=== PATIENT | female | born 1970 | race Caucasian/White ===

== ENCOUNTER → 2019-01-19 | Outpatient (CLI) | payer OTHER ==
[~2019-01-19] MED LIST: ALBU2.5V14 NEB; ALBU2.5V8 INH; ATORVASTATIN CA80 MG PO; CETI10TA16 PO; CHOL10003 PO; LOSA1TAB22 PO; MONT10TA9 PO; PANT20TA2 PO; SITA1TAB11 PO
[2019-01-19 11:15] LABS: BASO # 0.1 x10^3/uL (0.0-0.2); BASO % 1 % (0-3); EOS # 0.3 x10^3/uL (0.0-0.7); EOS % 4 % (0-3); HEMATOCRIT 38.1 % (36.0-47.0); LYMPH % 32 % (24-48); MEAN CORPUSCULAR HEMOGLOBIN 31 pg (25-35); MEAN CORPUSCULAR HGB CONC 34 g/dL (31-37); MEAN CORPUSCULAR VOLUME 90 fL (79-100); MONO # 0.4 x10^3/uL (0.0-1.1); MONO % 6 % (0-9); NEUT # 3.6 x10^3uL (1.8-7.7); NEUT % 57 % (31-73); PLATELET COUNT 249 x10^3/uL (140-400); RED BLOOD COUNT 4.26 x10^6/uL (3.50-5.40); RED CELL DISTRIBUTION WIDTH 13.6 % (11.5-14.5); WHITE BLOOD COUNT 6.3 x10^3/uL (4.0-11.0)
[2019-01-19 11:32] LABS: ALBUMIN 3.8 g/dL (3.4-5.0); CALCIUM 9.6 mg/dL (8.5-10.1); CREATININE 1.1 mg/dL (0.6-1.0); GFR 52.6; POTASSIUM 4.4 mmol/L (3.5-5.1); TOTAL BILIRUBIN 0.3 mg/dL (0.2-1.0)
[2019-01-19 23:09] LABS: HEMOGLOBIN A1C 9.8 % (4.8-5.6)
--- NOTE | 2019-01-20 10:34 | NUR ---
FAXED PRE - OP TEST REPORTS TO 'S OFFICE FOR REVIEW AT [phone] AND RECEIVED TRANSMITTAL CONFIRMATION. ALSO CALLED KODY WATTS AT 4106 01/20/2019 AND NOTIFIED OF ELEVATED HGB A1C.
--- NOTE | 2019-01-26 19:15 | NUR ---
PATIENT'S SURGERY 01/23/2019 CANCELLED BY D/T ELEVATED HGB A1C. CHART SEND TO MEDICAL RECORDS.
== END | disposition home or self-care (01) ==
LOC: SURGPAT 10:20
PROVIDERS: ATTEND Surgery
DX: Z01.818 Encounter for other preprocedural examination (principal); K80.20 Calculus of gallbladder without cholecystitis without obstruction
CPT/HCPCS: 36415; 80048; 82040; 82247; 83036; 85025

== ENCOUNTER → 2019-06-01 | Outpatient (CLI) | payer OTHER ==
[~2019-06-01] MED LIST changes: +DOCU50CA9 PO; +HYDR-3164 PO; +INSU100I13 SQ; +LACT1CAP21 PO; +MONT10TA49 PO; -MONT10TA9 PO; +MV-M1TAB52 PO; +TIZA4TAB PO
[2019-06-01 10:03] LABS: BASO # 0.1 x10^3/uL (0.0-0.2); BASO % 1 % (0-3); EOS # 0.3 x10^3/uL (0.0-0.7); EOS % 4 % (0-3); HEMATOCRIT 34.5 % (36.0-47.0); HEMOGLOBIN 12.3 g/dL (12.0-15.5); LYMPH # 1.9 x10^3/uL (1.0-4.8); LYMPH % 27 % (24-48); MEAN CORPUSCULAR HEMOGLOBIN 33 pg (25-35); MEAN CORPUSCULAR HGB CONC 36 g/dL (31-37); MEAN CORPUSCULAR VOLUME 92 fL (79-100); MONO # 0.4 x10^3/uL (0.0-1.1); MONO % 6 % (0-9); NEUT # 4.5 x10^3/uL (1.8-7.7); NEUT % 62 % (31-73); PLATELET COUNT 250 x10^3/uL (140-400); RED BLOOD COUNT 3.75 x10^6/uL (3.50-5.40); RED CELL DISTRIBUTION WIDTH 14.3 % (11.5-14.5); WHITE BLOOD COUNT 7.2 x10^3/uL (4.0-11.0)
[2019-06-01 10:13] LABS: CALCIUM 9.5 mg/dL (8.5-10.1); CREATININE 2.1 mg/dL (0.6-1.0); GFR 24.9; POTASSIUM 4.5 mmol/L (3.5-5.1); TOTAL BILIRUBIN 0.2 mg/dL (0.2-1.0)
== END | disposition home or self-care (01) ==
LOC: SURGPAT 09:08
PROVIDERS: ATTEND Surgery
DX: Z01.818 Encounter for other preprocedural examination (principal); K80.20 Calculus of gallbladder without cholecystitis without obstruction
CPT/HCPCS: 36415; 80048; 82040; 82247; 85025

== ENCOUNTER 2019-06-02 08:47 | Day surgery (SDC) | payer OTHER ==
[~2019-06-02] VITALS: Ht 170.2 cm; Wt 78.0 kg
[~2019-06-02 08:47] MED LIST changes: -DOCU50CA9 PO; -INSU100I13 SQ
[2019-06-02] MEDS ORDERED: INSU100I13 SQ (09:18)
[2019-06-02] MEDS ORDERED: IV RINGERS,LACTATED 1000ML 1,000 ML IV SCH ×2 (09:45→13:30)
[2019-06-02] MEDS ORDERED: INSULIN LISPRO 100 UNIT/ML 3ML VIAL for OP,RR ONLY. SQ PRN (09:45)
[2019-06-02] MEDS ORDERED: SCOPOLAMINE 1.5MG PATCH. TD SCH (10:00)
[2019-06-02] MEDS ORDERED: GLUCAGON,HUMAN RECOMBINANT 1 MG/ML VIAL. ONE (10:47)
[2019-06-02] MEDS ORDERED: BUPIVAC MPF-EPI 0.5%-1:200000 30 ML VIAL. ONE (10:47)
[2019-06-02] MEDS ORDERED: IOHEXOL 300 MG/ML 50 ML VIAL. ONE (10:48)
[2019-06-02] MEDS ORDERED: SURGICEL HEMOSTAT 4X8 EACH. ONE (10:48)
[2019-06-02] MEDS ORDERED: ceFAZolin 2GM PREMIX 2 GM/50 ML BAG IV ONE (12:00)
[2019-06-02] MEDS ORDERED: fentaNYL PF VIAL 100 MCG/2 ML VIAL ONE ×2 (12:19→13:28)
[2019-06-02] MEDS ORDERED: MIDAZOLAM HCL/PF 2 MG/2 ML VIAL. ONE (12:19)
[2019-06-02] MEDS ORDERED: ROCURONIUM 50 MG/5 ML VIAL. ONE (12:20)
[2019-06-02] MEDS ORDERED: FAMOTIDINE 20 MG/2 ML VIAL ONE (12:20)
[2019-06-02] MEDS ORDERED: DEXAMETHASONE SOD PHOS 4 MG/ML VIAL ONE (12:20)
[2019-06-02] MEDS ORDERED: ONDANSETRON PF 4 MG/2 ML VIAL. ONE (12:20)
[2019-06-02] MEDS ORDERED: PROPOFOL 20 ML IV ONE (12:20)
[2019-06-02] MEDS ORDERED: MORPHINE SULFATE 10 MG/ML VIAL. ONE (12:22)
[2019-06-02] MEDS ORDERED: NEOSTIGMINE METHYLSULFATE 5 MG/5 ML SYRINGE. ONE (12:34)
[2019-06-02] MEDS ORDERED: GLYCOPYRROLATE 1 MG/5 ML VIAL. ONE (12:34)
--- NOTE | 2019-06-02 12:53 | RAD ---
Examination: Operative cholangiogram History: Cholecystectomy. Procedure: Fluoroscopic images were provided during the procedure. The cystic duct has been catheterized and contrast has been injected. Findings: The common hepatic bile duct and common bile duct are patent without evidence of intraluminal filling defect or obstruction. Contrast empties normally into the duodenum. Total fluoroscopic time 0.4 minutes. Total fluoroscopic images 3. Impression: Fluoroscopy provided during intraoperative cholangiogram. Electronically signed by: Oz Galvan MD (06/02/2019 12:50 PM) [id number]
--- NOTE | 2019-06-02 12:57 | DISCH ---
DISCHARGE INSTRUCTIONS Condition on Discharge Condition on Discharge: Stable Activity After Discharge Activity Instructions for Disc: Activity as tolerated, Avoid exertion Lifting Instructions after Dis: No heavy lifting Driving Instructions after Dis: Do not drive (3-4 days) Diet after Discharge Diet after Discharge: Regular Wound Incision Care Wound/Incision Care: Ice to area for comfort Other wound/incision instructi: nakia shower Follow-Up Follow Up With: Vern next week JAILENE DUBON MD Jun 02, 2019 12:56
--- NOTE | 2019-06-02 12:59 | PDOC ---
BRIEF OPERATIVE NOTE Date: Jun 02, 2019 Pre-Op Diagnosis symptomatic cholelithiasis Post-Op Diagnosis same Procedure Performed l/s lebron with fidel Surgeon Vern Stripper Apprentice Rock WALKER Anesthesia Type: General Blood Loss 10cc IV Fluid 1000cc Specimens Obtained GB Findings supple GB, normal grams Complications none JAILENE DUBON MD Jun 02, 2019 12:58
[2019-06-02] MEDS ORDERED: HYDR-3164 PO (13:05)
[2019-06-02] MEDS ORDERED: DOCU50CA9 PO (13:06)
[2019-06-02] MEDS ORDERED: MORPHINE SULFATE 2 MG/ML VIAL. IV PRN (13:30)
[2019-06-02] MEDS ORDERED: fentaNYL PF VIAL 100 MCG/2 ML VIAL IV PRN ×2 (13:30)
[2019-06-02] MEDS ORDERED: ONDANSETRON PF 4 MG/2 ML VIAL. IV PRN (13:30)
[2019-06-02] MEDS ORDERED: HYDROmorphone 2 MG/ML VIAL IV PRN (13:30)
[2019-06-02] MEDS: PROCHLORPERAZINE 10 MG/2 ML VIAL. IV PRN ×2 (13:42→14:15)
[2019-06-02] MEDS ORDERED: KETOROLAC 30 MG/ML VIAL. IV ONE (14:40)
[2019-06-02] MEDS ORDERED: HYDROcodone/APAP 5/325MG 1 TAB TABLET ONE (15:33)
[2019-06-02] MEDS ORDERED: HYDROcodone/APAP 5/325MG 1 TAB TABLET PO ONE (15:45)
[2019-06-02 16:10] VITALS: BP 162/84
--- NOTE | 2019-06-03 09:58 | OP ---
DATE OF SURGERY: 06/02/2019 PREOPERATIVE DIAGNOSIS: Symptomatic cholelithiasis. POSTOPERATIVE DIAGNOSIS: Symptomatic cholelithiasis. PROCEDURE: Laparoscopic cholecystectomy with cholangiogram. SURGEON: Sunny Dubon MD HAULING CONTRACTOR: AARON Floyd. ANESTHESIA: General endotracheal. ESTIMATED BLOOD LOSS: 10 mL. INTRAVENOUS FLUID: 1 liter. DESCRIPTION OF PROCEDURE: The patient brought to the operating suite, given a general endotracheal anesthetic and the abdomen was prepped and draped in usual sterile fashion. A supraumbilical incision was infiltrated with local anesthetic, incised and a 5 mm Visiport used to safely gain access into the abdominal cavity. Pneumoperitoneum was established and camera was inserted. Under direct vision, the epigastric and midclavicular ports were placed. The lateral port location was used for an "alligator" grasper. With the table in reverse Trendelenburg rolled to the left, the gallbladder was retracted superolaterally and the cystic duct and cystic artery were identified. The duct was clipped on the gallbladder side. Cholangiograms were made. These were normal. In light of this, the catheter was removed. The cystic duct was clipped x 3 and divided, taking care to avoid injury or compromise the common duct. Cystic artery was clipped and divided and the gallbladder was freed from the bed with cautery dissection and placed in an EndoCatch bag. Table returned to level. Gallbladder delivered through the epigastric incision. Epigastric incision was closed with 0 Vicryl suture. At intraabdominal pressure of 6 cm of water, no bleeding from the epigastric closure, the midclavicular port site after its removal, or the location of the alligator grasper after its removal. Abdomen was decompressed, camera was removed, no bleeding seen. Skin incisions closed with subcuticular 4-0 Monocryl. Steri-Strips and sterile dressings were applied. The patient awakened from her anesthetic and taken to the Recovery Room in satisfactory condition. SUNNY DUBON MD DR: PRIYA/gregg JOB#: [id number] / [id number]
--- NOTE | 2019-06-03 19:06 | PATHOLOGY ---
[facility] Accession Number: [id number] . 01 Material submitted: . gallbladder - GALLBLADDER . 01 Clinical history: . Symptomatic cholelithiasis . 02 Diagnosis: Gallbladder, laparoscopic cholecystectomy: - Cholelithiasis. - Chronic cholecystitis. (JPM:cintia; 06/03/2019) MBR/06/03/2019 . 02 Comment: There is no evidence of malignancy. (JPM:cintia; 06/03/2019) . 02 Electronically signed: . Bradley Jackson MD, Pathologist NPI- [id number] . 01 Gross description: . The specimen is received in formalin labeled "Lively, Celsa, gallbladder" and consists of an intact, green-pearl, smooth, and shiny gallbladder measuring 6.9 cm in length and up to 2.4 cm in diameter. The margin is inked black. Opening reveals a lumen filled with viscous green bile and multiple black gravel-like calculi ranging from 0.1-0.4 cm. The mucosa is green with scattered yellow flecks and an average wall thickness of 0.1 cm. No masses are identified. Mechanic/Welder sections are submitted in A1. (SDY; 06/02/2019) SYU/SYU . 02 Pathologist provided ICD-10: K80.10 . 02 CPT . 296487 Specimen Comment: A courtesy copy of this report has been sent to Specimen Comment: [phone], . Specimen Comment: Report sent to DR DUBON / DR BORREGO Performed at: [address], [place], [place] [id number] MD Trip Flores MD Phone: [phone] Performed at: 02 [facility] [address] [place], [place] [id number] MD Bradley Jackson MD Phone: [phone]
== END 2019-06-02 16:34 | disposition home or self-care (01) ==
LOC: SURG 08:47
PROVIDERS: ATTEND Surgery
DX: K80.10 Calculus of gallbladder with chronic cholecystitis without obstruction (principal); E11.9 Type 2 diabetes mellitus without complications; J45.909 Unspecified asthma, uncomplicated; F17.210 Nicotine dependence, cigarettes, uncomplicated; I10 Essential (primary) hypertension; Z98.51 Tubal ligation status; Z98.890 Other specified postprocedural states; Z72.89 Other problems related to lifestyle; Z88.1 Allergy status to other antibiotic agents; Z88.8 Allergy status to other drugs, medicaments and biological substances; Z79.84 Long term (current) use of oral hypoglycemic drugs
CPT/HCPCS: 47563; 74300; 82962; A7015; J0780; J1100; J1885; J2250; J2270; J2405; J2704; J2710; J3010; J3490; J7030; J7120; Q9967; J0696; J1610

== ENCOUNTER 2021-12-24 19:51 | Inpatient (IN) | payer SELFPAY ==
[~2021-12-24] VITALS: Ht 170.2 cm; Wt 81.2 kg
[2021-12-24] VITALS (9 sets, daily range): BP systolic 157–182; BP diastolic 79–97
[~2021-12-24 19:51] MED LIST changes: +DOCU50CA9 PO; +INSU100I13 SQ; +TIZA-75 PO; -TIZA4TAB PO
[2021-12-24] MEDS ORDERED: ACETAMINOPHEN 650 MG SUPP.RECT. PR PRN (20:15)
[2021-12-24] MEDS ORDERED: ACETAMINOPHEN 325 MG TABLET. PO PRN ×2 (20:15)
[2021-12-24] MEDS ORDERED: BISACODYL 10 MG SUPP.RECT. PR PRN ×2 (20:15)
[2021-12-24] MEDS ORDERED: ASPIRIN RECTAL 300 MG SUPP. PR PRN (20:15)
[2021-12-24] MEDS ORDERED: IV DEXTROSE 5% 250 ML BAG. IV PRN (20:15)
[2021-12-24] MEDS ORDERED: ONDANSETRON PF 4 MG/2 ML VIAL. IVP PRN (20:15)
[2021-12-24] MEDS ORDERED: DEXTROSE 50% 25 GM / 50ML DISP.SYRIN. IV PRN (20:15)
[2021-12-24] MEDS: ATORVASTATIN CALCIUM 40 MG TABLET. PO SCH (20:21)
--- NOTE | 2021-12-24 21:15 | NUR ---
admit from [facility], S/p stroke, unable to move right arm and leg. non-verbal Dr Mejia aware of admission. Called Dr. Chance for admit orders
[2021-12-24] MEDS ORDERED: MONT-38 PO (21:19)
[2021-12-24] MEDS: FAMOTIDINE 20 MG/2 ML VIAL IVP SCH (21:46)
[2021-12-24] MEDS: INSULIN LISPRO 300 UNITS/3 ML VIAL. SQ SCH (23:41)
[2021-12-25] VITALS (18 sets, daily range): BP systolic 140–204; BP diastolic 72–121
[2021-12-25] MEDS: INSULIN LISPRO 300 UNITS/3 ML VIAL. SQ SCH ×4 (05:52→23:53)
[2021-12-25 08:13] LABS: BASO # 0.1 x10^3/uL (0.0-0.2); BASO % 1 % (0-3); EOS # 0.1 x10^3/uL (0.0-0.7); EOS % 1 % (0-3); HEMATOCRIT 39.6 % (36.0-47.0); HEMOGLOBIN 13.5 g/dL (12.0-15.5); LYMPH # 2.4 x10^3/uL (1.0-4.8); LYMPH % 22 % (24-48); MEAN CORPUSCULAR HEMOGLOBIN 29 pg (25-35); MEAN CORPUSCULAR HGB CONC 34 g/dL (31-37); MEAN CORPUSCULAR VOLUME 84 fL (79-100); MONO # 0.9 x10^3/uL (0.0-1.1); MONO % 8 % (0-9); NEUT # 7.3 x10^3/uL (1.8-7.7); NEUT % 68 % (31-73); PLATELET COUNT 312 x10^3/uL (140-400); RED BLOOD COUNT 4.69 x10^6/uL (3.50-5.40); RED CELL DISTRIBUTION WIDTH 13.7 % (11.5-14.5); WHITE BLOOD COUNT 10.7 x10^3/uL (4.0-11.0)
[2021-12-25] MEDS: FAMOTIDINE 20 MG/2 ML VIAL IVP SCH ×2 (08:26→20:58)
[2021-12-25 08:36] LABS: PROTHROMBIN TIME PATIENT 12.1 SEC (11.7-14.0)
[2021-12-25 08:52] LABS: ALBUMIN/GLOBULIN RATIO 0.8 (1.0-1.7); CALCIUM 8.9 mg/dL (8.5-10.1); CREATININE 1.7 mg/dL (0.6-1.0); GFR 31.4; TOTAL BILIRUBIN 0.8 mg/dL (0.2-1.0); TOTAL PROTEIN 6.8 g/dL (6.4-8.2)
[2021-12-25 08:53] LABS: CHOLESTEROL/HDL RATIO 8.2; POTASSIUM 2.9 mmol/L (3.5-5.1)
[2021-12-25] MEDS ORDERED: POTASSIUM CHLORIDE 20MEQ 100 ML IV SCH (09:00)
[2021-12-25] MEDS: POTASSIUM CHLORIDE 10MEQ 100 ML IV SCH ×4 (09:55→13:16)
--- NOTE | 2021-12-25 09:59 | NUR ---
SS following for discharge planning. SS reviewed pt chart and discussed with RN. Pt is from home with spouse and is currently on room air. MRI today. PT/OT/ST ordered. Self pay. Med Assist following. SS will continue to follow for discharge planning.
[2021-12-25] MEDS: hydroCHLOROthiazide 25 MG TABLET PO SCH (10:00)
[2021-12-25] MEDS: MONTELUKAST SODIUM 10 MG TABLET. PO SCH (10:00)
[2021-12-25] MEDS: CHOLECALCIFEROL (VITAMIN D3) 1,000 UNIT TABLET PO SCH (10:00)
[2021-12-25] MEDS: CETIRIZINE HCL 10 MG TABLET. PO SCH (10:00)
[2021-12-25] MEDS: LOSARTAN POTASSIUM 50 MG TABLET. PO SCH (10:00)
--- NOTE | 2021-12-25 10:06 | PDOC1 ---
History and Physical Date of Service: DOS: DATE: 12/25/21 TIME: 09:48 Chief Complaint: Chief Complain: Slurred speech unilateral weakness History of Present Illness: HPI: Patient nonverbal so much history obtained from a report. Patient apparently presented to outside hospital yesterday with right-sided weakness and aphasia. Patient apparently had a fall a couple of days ago and ever since then has been sleeping more and felt more weak. Weakness had been progressing ever since the fall. Yesterday at 3:30 in the morning she woke up and was able to ambulate but was having notable right-sided weakness. Did not go to the emergency room right away. She eventually went back to sleep and awoke later that day with worsened right- sided deficits and inability to speak. Presented to outside hospital that point then. CT head there showing some age-indeterminate infarcts. Otherwise no large vessel occlusions. Patient transferred here for neurologic work-up including MRI. I saw the patient at bedside this morning she was awake and appeared as if she was comprehending my questions. But Still was unable to speak. Right side still with deficits. Past Medical/Surgical History: PMH/PSH: Diabetes hypertension asthma Allergies: Allergies: Coded Allergies: Sulfa (Sulfonamide Antibiotics) (Verified Allergy, Intermediate, Hives, 06/02/19) latex (Verified Allergy, Intermediate, Swelling, 06/02/19) lisinopril (Verified Allergy, Intermediate, Rash, 06/02/19) levofloxacin (Verified Adverse Reaction, Intermediate, 12/25/21) HEADACHES/FLU-LIKE SYMPTOMS/JOINT PAIN Family History: Family History: No known Social History: Social History: Per report a cigarette smoker. No alcohol or drug use. Current Medications: Current Medications Current Medications Hydralazine HCl (Apresoline Inj) 10 mg PRN Q4HRS PRN IVP ELEVATED BP, SEE COMMENTS; Start 12/24/21 at 20:15 Acetaminophen (Tylenol) 650 mg PRN Q6HRS PRN PO MILD PAIN / TEMP > 100.3'F; Start 12/24/21 at 20:15 Ondansetron HCl (Zofran) 4 mg PRN Q4HRS PRN IVP NAUSEA/VOMITING; Start 12/24/21 at 20:15 Olanzapine (ZyPREXA ZYDIS) 5 mg PRN BID PRN PO ANXIETY / AGITATION Last administered on 12/24/21at 22:49; Start 12/24/21 at 20:15 Bisacodyl (Dulcolax Supp) 10 mg PRN DAILY PRN [place] CONSTIPATION; Start 12/24/21 at 20:15 Nicardipine HCl 50 mg/Sodium Chloride 250 ml @ 25 mls/hr CONT PRN PRN IV PER PROTOCOL Last administered on 12/24/21at 23:41; Start 12/24/21 at 20:15 Atorvastatin Calcium (Lipitor) 80 mg QHS PO ; Start 12/24/21 at 21:00 Acetaminophen (Tylenol) 650 mg PRN Q6HRS PRN PO MILD PAIN / TEMP > 100.3'F; Start 12/24/21 at 20:15; Stop 12/24/21 at 20:17; Status DC Bisacodyl (Dulcolax Supp) 10 mg PRN DAILY PRN [place] CONSTIPATION; Start 12/24/21 at 20:15; Status UNV Famotidine (Pepcid Vial) 20 mg BID IVP Last administered on 12/25/21at 08:26; Start 12/24/21 at 21:00 Aspirin (Aspirin Rectal Supp) 300 mg PRN DAILY PRN [place] IF UNABLE TO TAKE PO; Start 12/24/21 at 20:15 Acetaminophen (Tylenol Supp) 650 mg PRN Q6HRS PRN [place] MILD PAIN / TEMP > 100.3'F; Start 12/24/21 at 20:15 Insulin Human Lispro (HumaLOG) 0-9 UNITS Q6HRS SQ ; Start 12/25/21 at 00:00 Dextrose (Dextrose 50%-Water Syringe) 12.5 gm PRN Q15MIN PRN IV SEE COMMENTS; Start 12/24/21 at 20:15 Dextrose (Iv Dextrose 5%) 250 ml PRN Q15MIN PRN IV SEE COMMENTS; Start 12/24/21 at 20:15 Potassium Chloride/Water 100 ml @ 100 mls/hr Q1H IV ; Start 12/25/21 at 09:00; Stop 12/25/21 at 10:59; Status UNV Potassium Chloride/Water 100 ml @ 100 mls/hr Q1H IV ; Start 12/25/21 at 09:00; Stop 12/25/21 at 12:59 Active Scripts Active Reported Montelukast Sodium 10 Mg Tablet 1 Tab PO DAILY Stool Softener (Docusate Sodium) 50 Mg Capsule 50 Mg PO BID Isola 5-325 Tablet (Acetaminophen/Hydrocodone Bitart) 1 Each Tablet 1 Tab PO Q4HRS LAST DOSE GIVEN: Lantus Solostar (Insulin Glargine,Hum.rec.anlog) 100 Unit/1 Ml Insuln.pen 21 Unit SQ QHS Culturelle (Lactobacillus Rhamnosus Gg) 1 Each Capsule 1 Each PO DAILY Alive Once Daily Women 50 Plus (Mv-Mn/Folic Acid/Vit K/[id number]) 1 Each Tablet 1 Each PO DAILY Isola 5-325 Tablet (Acetaminophen/Hydrocodone Bitart) 1 Each Tablet 1 Tab PO PRN Q6HRS PRN Tizanidine Hcl 4 Mg Tablet 2 Tab PO TID PRN Proair Hfa Inhaler (Albuterol Sulfate) 8.5 Gm Hfa.aer.ad 1 Puff INH PRN Q6HRS PRN Montelukast Sodium Tablet (Montelukast Sodium) 10 Mg Tablet 1 Tab PO DAILY Losartan-Hctz 100-25 Mg Tab (Losartan/Hydrochlorothiazide) 1 Each Tablet 1 Tab PO DAILY Protonix (Pantoprazole Sodium) 20 Mg Tablet.dr 1 Tab PO DAILY Vitamin D3 (Cholecalciferol (Vitamin D3)) 1,000 Unit Tablet 1 Tab PO DAILY Cetirizine Hcl 10 Mg Tablet 1 Tab PO DAILY Janumet 50-1,000 Mg Tablet (Sitagliptin Phos/Metformin Hcl) 1 Each Tablet 1 Tab PO BID ROS: Review of Systems Review of System Could not obtain from patient due to aphasia Physical Exam: Vital Signs: Vital Signs Date Time Temp Pulse Resp B/P (MAP) Pulse Ox O2 Delivery O2 Flow Rate FiO2 12/25/21 07:00 99 17 159/87 97 Room Air 12/25/21 04:00 98.0 98.0 Physcial Exam: GEN: No apparent distress. Alert unable to assess orientation HEENT: Normal cephalic, atraumatic, external auditory canals are patent EYES: Extraocular muscles are intact, pupil are equally round and reactive to light and accommodation MUSCULOSKELETAL: Well developed , well nourished ENDOCRINE: No thyromegaly was palpated LYMPHATICS: No cervical chain or axillary nodes were noted HEMATOPOIETIC: No bruising NECK: Supple, no JVD, no thyromegaly was noted LUNGS: Clear to auscultation in all lung gil without rhonchi or wheezing HEART: RRR, S1, S2 present. Peripheral pulses intact, no obvious murmurs noted ABDOMEN: Soft, nontender. Positive bowel sounds, no organomegaly, normal bowel sounds EXTREMITIES: Without clubbing, cyanosis, or edema. Pedal pulses intact. NEUROLOGIC: Patient with what appears to be expressive aphasia. Able to follow some commands. Right side upper and lower extremities with 0/5 strength PSYCHIATRIC: Could not assess SKIN: No ulcerations or rashes, good skin turgor, no jaundice VASCULAR: Good capillary refill, neurovascular bundle appears to be intact Labs: Labs: Laboratory Tests Test 12/24/21 23:27 12/25/21 05:49 12/25/21 07:53 12/25/21 07:55 Glucose (Fingerstick) 206 mg/dL (70-99) 183 mg/dL (70-99) Prothrombin Time 12.1 SEC (11.7-14.0) Prothromb Time International Ratio 0.9 (0.8-1.1) White Blood Count 10.7 x10^3/uL (4.0-11.0) Red Blood Count 4.69 x10^6/uL (3.50-5.40) Hemoglobin 13.5 g/dL (12.0-15.5) Hematocrit 39.6 % (36.0-47.0) Mean Corpuscular Volume 84 fL (79-100) Mean Corpuscular Hemoglobin 29 pg (25-35) Mean Corpuscular Hemoglobin Concent 34 g/dL (31-37) Red Cell Distribution Width 13.7 % (11.5-14.5) Platelet Count 312 x10^3/uL (140-400) Neutrophils (%) (Auto) 68 % (31-73) Lymphocytes (%) (Auto) 22 % (24-48) Monocytes (%) (Auto) 8 % (0-9) Eosinophils (%) (Auto) 1 % (0-3) Basophils (%) (Auto) 1 % (0-3) Neutrophils # (Auto) 7.3 x10^3/uL (1.8-7.7) Lymphocytes # (Auto) 2.4 x10^3/uL (1.0-4.8) Monocytes # (Auto) 0.9 x10^3/uL (0.0-1.1) Eosinophils # (Auto) 0.1 x10^3/uL (0.0-0.7) Basophils # (Auto) 0.1 x10^3/uL (0.0-0.2) Sodium Level 143 mmol/L (136-145) Potassium Level 2.9 mmol/L (3.5-5.1) Chloride Level 103 mmol/L (98-107) Carbon Dioxide Level 26 mmol/L (21-32) Anion Gap 14 (6-14) Blood Urea Nitrogen 17 mg/dL (7-20) Creatinine 1.7 mg/dL (0.6-1.0) Estimated GFR (Cockcroft-Gault) 31.4 BUN/Creatinine Ratio 10 (6-20) Glucose Level 181 mg/dL (70-99) Calcium Level 8.9 mg/dL (8.5-10.1) Total Bilirubin 0.8 mg/dL (0.2-1.0) Aspartate Amino Transf (AST/SGOT) 18 U/L (15-37) Alanine Aminotransferase (ALT/SGPT) 18 U/L (14-59) Alkaline Phosphatase 84 U/L (46-116) Total Protein 6.8 g/dL (6.4-8.2) Albumin 3.0 g/dL (3.4-5.0) Albumin/Globulin Ratio 0.8 (1.0-1.7) Triglycerides Level 278 mg/dL (0-150) Cholesterol Level 272 mg/dL (0-200) LDL Cholesterol, Calculated 183 mg/dL (0-100) VLDL Cholesterol, Calculated 56 mg/dL (0-40) Non-HDL Cholesterol Calculated 239 mg/dL (0-129) HDL Cholesterol 33 mg/dL (40-60) Cholesterol/HDL Ratio 8.2 Laboratory Tests Test 12/24/21 23:27 12/25/21 05:49 12/25/21 07:53 12/25/21 07:55 Glucose (Fingerstick) 206 mg/dL (70-99) 183 mg/dL (70-99) Prothrombin Time 12.1 SEC (11.7-14.0) Prothromb Time International Ratio 0.9 (0.8-1.1) White Blood Count 10.7 x10^3/uL (4.0-11.0) Red Blood Count 4.69 x10^6/uL (3.50-5.40) Hemoglobin 13.5 g/dL (12.0-15.5) Hematocrit 39.6 % (36.0-47.0) Mean Corpuscular Volume 84 fL (79-100) Mean Corpuscular Hemoglobin 29 pg (25-35) Mean Corpuscular Hemoglobin Concent 34 g/dL (31-37) Red Cell Distribution Width 13.7 % (11.5-14.5) Platelet Count 312 x10^3/uL (140-400) Neutrophils (%) (Auto) 68 % (31-73) Lymphocytes (%) (Auto) 22 % (24-48) Monocytes (%) (Auto) 8 % (0-9) Eosinophils (%) (Auto) 1 % (0-3) Basophils (%) (Auto) 1 % (0-3) Neutrophils # (Auto) 7.3 x10^3/uL (1.8-7.7) Lymphocytes # (Auto) 2.4 x10^3/uL (1.0-4.8) Monocytes # (Auto) 0.9 x10^3/uL (0.0-1.1) Eosinophils # (Auto) 0.1 x10^3/uL (0.0-0.7) Basophils # (Auto) 0.1 x10^3/uL (0.0-0.2) Sodium Level 143 mmol/L (136-145) Potassium Level 2.9 mmol/L (3.5-5.1) Chloride Level 103 mmol/L (98-107) Carbon Dioxide Level 26 mmol/L (21-32) Anion Gap 14 (6-14) Blood Urea Nitrogen 17 mg/dL (7-20) Creatinine 1.7 mg/dL (0.6-1.0) Estimated GFR (Cockcroft-Gault) 31.4 BUN/Creatinine Ratio 10 (6-20) Glucose Level 181 mg/dL (70-99) Calcium Level 8.9 mg/dL (8.5-10.1) Total Bilirubin 0.8 mg/dL (0.2-1.0) Aspartate Amino Transf (AST/SGOT) 18 U/L (15-37) Alanine Aminotransferase (ALT/SGPT) 18 U/L (14-59) Alkaline Phosphatase 84 U/L (46-116) Total Protein 6.8 g/dL (6.4-8.2) Albumin 3.0 g/dL (3.4-5.0) Albumin/Globulin Ratio 0.8 (1.0-1.7) Triglycerides Level 278 mg/dL (0-150) Cholesterol Level 272 mg/dL (0-200) LDL Cholesterol, Calculated 183 mg/dL (0-100) VLDL Cholesterol, Calculated 56 mg/dL (0-40) Non-HDL Cholesterol Calculated 239 mg/dL (0-129) HDL Cholesterol 33 mg/dL (40-60) Cholesterol/HDL Ratio 8.2 Images: Images CT scans at outside hospital did not show any large vessel occlusions. Showed age-indeterminate infarcts no hemorrhage. MRI Recommended Assessment/Plan Assessment/Plan Expressive aphasia unilateral weakness secondary to suspected CVA. History hypertension diabetes -Patient presented with worsening neurologic symptoms outside hospital. No definitive findings on CTA head scans. Sent here for neuro consult and MRI -Neurology consulted. MRI and echo ordered. -Speech pathology consult; hold off on diet until seen by them -PT OT -Home meds resumed as indicated -We will start a sliding scale insulin -will contact and discuss with family 38 minutes critical care time Justifications for Admission TIA Indications Persistent neurologic signs?: Yes Justification for admission: There is persistence of patient's focal neurologic signs or symptoms or there is concern for recurrence of patient's neurological signs and symptoms. Severe hypertension?: Yes Justification for admission: There is concern for patient's severe hypertension of (>180/110mmHg--please indicate patient's BP here) that has not been controlled by ED treatment. Patient needs inpatient level of care for further evaluation and management. Other Justification JUDY PATINO MD Dec 25, 2021 10:06
--- NOTE | 2021-12-25 10:27 | PDOC2 ---
NEUROLOGY CONSULT Date of Service DOS: DATE: 12/25/21 TIME: 10:17 Reason for Consult Reason for Consult: Stroke Referring Physician Referring Physician: Dr. Chance Source Source: Chart review, Patient History of Present Illness History of Present Illness The patient is a 51-year-old right-handed female last known normal at 0130 yest erday. She then woke up at 0330 with right-sided weakness and difficulty speaking. She had a fall 2 days before that. Patient waited until yesterday afternoon to go to the emergency department. I spoke to Dr. Lazar at 16:50. Blood pressure is very high in the emergency department. Patient was well outside the alteplase window. CT angiogram showed no large vessel occlusion. Therefore she was not a candidate for any kind of intervention. I agreed with transfer to [place]. Patient's blood pressure is better this morning. She still has trouble speaking. She does not have a headache. She denies any prior history of stroke, seizure, or head injury. Past Medical History Cardiovascular: HTN, Hyperlipidemia Pulmonary: Asthma, COPD GI: GERD, Other (Diarrhea) Hepatobiliary: Cholelithiasis Endocrine: Diabetes Past Surgical History Past Surgical History: Appendectomy, Tubal Ligation, Other (Uterine ablation) Family History Family History: No pertinent hx Social History Social History , smokes cigarettes, rare alcohol Current Medications Current Medications Current Medications Hydralazine HCl (Apresoline Inj) 10 mg PRN Q4HRS PRN IVP ELEVATED BP, SEE COMMENTS; Start 12/24/21 at 20:15 Acetaminophen (Tylenol) 650 mg PRN Q6HRS PRN PO MILD PAIN / TEMP > 100.3'F; Start 12/24/21 at 20:15 Ondansetron HCl (Zofran) 4 mg PRN Q4HRS PRN IVP NAUSEA/VOMITING; Start 12/24/21 at 20:15 Olanzapine (ZyPREXA ZYDIS) 5 mg PRN BID PRN PO ANXIETY / AGITATION Last administered on 12/24/21at 22:49; Start 12/24/21 at 20:15 Bisacodyl (Dulcolax Supp) 10 mg PRN DAILY PRN DE CONSTIPATION; Start 12/24/21 at 20:15 Nicardipine HCl 50 mg/Sodium Chloride 250 ml @ 25 mls/hr CONT PRN PRN IV PER PROTOCOL Last administered on 12/24/21at 23:41; Start 12/24/21 at 20:15 Atorvastatin Calcium (Lipitor) 80 mg QHS PO ; Start 12/24/21 at 21:00 Acetaminophen (Tylenol) 650 mg PRN Q6HRS PRN PO MILD PAIN / TEMP > 100.3'F; Start 12/24/21 at 20:15; Stop 12/24/21 at 20:17; Status DC Bisacodyl (Dulcolax Supp) 10 mg PRN DAILY PRN DE CONSTIPATION; Start 12/24/21 at 20:15; Status UNV Famotidine (Pepcid Vial) 20 mg BID IVP Last administered on 12/25/21at 08:26; Start 12/24/21 at 21:00 Aspirin (Aspirin Rectal Supp) 300 mg PRN DAILY PRN DE IF UNABLE TO TAKE PO; Start 12/24/21 at 20:15 Acetaminophen (Tylenol Supp) 650 mg PRN Q6HRS PRN DE MILD PAIN / TEMP > 100.3'F; Start 12/24/21 at 20:15 Insulin Human Lispro (HumaLOG) 0-9 UNITS Q6HRS SQ ; Start 12/25/21 at 00:00 Dextrose (Dextrose 50%-Water Syringe) 12.5 gm PRN Q15MIN PRN IV SEE COMMENTS; Start 12/24/21 at 20:15 Dextrose (Iv Dextrose 5%) 250 ml PRN Q15MIN PRN IV SEE COMMENTS; Start 12/24/21 at 20:15 Potassium Chloride/Water 100 ml @ 100 mls/hr Q1H IV ; Start 12/25/21 at 09:00; Stop 12/25/21 at 10:59; Status UNV Potassium Chloride/Water 100 ml @ 100 mls/hr Q1H IV Last administered on 12/25/21at 09:55; Start 12/25/21 at 09:00; Stop 12/25/21 at 12:59 Cetirizine HCl (ZyrTEC) 10 mg DAILY PO ; Start 12/25/21 at 10:00 Vitamin D (Vitamin D3) 1,000 unit DAILY PO ; Start 12/25/21 at 10:00 Montelukast Sodium (Singulair) 10 mg DAILY PO ; Start 12/25/21 at 10:00 Losartan Potassium (Cozaar) 100 mg DAILY PO ; Start 12/25/21 at 10:00 Pantoprazole Sodium (Protonix) 40 mg DAILYAC PO ; Start 12/25/21 at 11:30 Lorazepam (Ativan Inj) 2 mg PRN Q4HRS PRN IVP ANXIETY / AGITATION; Start 12/25/21 at 10:00 Hydrochlorothiazide (Hydrodiuril) 25 mg DAILY PO ; Start 12/25/21 at 10:00 Active Scripts Active Reported Montelukast Sodium 10 Mg Tablet 1 Tab PO DAILY Stool Softener (Docusate Sodium) 50 Mg Capsule 50 Mg PO BID Rocky 5-325 Tablet (Acetaminophen/Hydrocodone Bitart) 1 Each Tablet 1 Tab PO Q4HRS LAST DOSE GIVEN: Lantus Solostar (Insulin Glargine,Hum.rec.anlog) 100 Unit/1 Ml Insuln.pen 21 Unit SQ QHS Culturelle (Lactobacillus Rhamnosus Gg) 1 Each Capsule 1 Each PO DAILY Alive Once Daily Women 50 Plus (Mv-Mn/Folic Acid/Vit K/[id number]) 1 Each Tablet 1 Each PO DAILY Rocky 5-325 Tablet (Acetaminophen/Hydrocodone Bitart) 1 Each Tablet 1 Tab PO PRN Q6HRS PRN Tizanidine Hcl 4 Mg Tablet 2 Tab PO TID PRN Proair Hfa Inhaler (Albuterol Sulfate) 8.5 Gm Hfa.aer.ad 1 Puff INH PRN Q6HRS PRN Montelukast Sodium Tablet (Montelukast Sodium) 10 Mg Tablet 1 Tab PO DAILY Losartan-Hctz 100-25 Mg Tab (Losartan/Hydrochlorothiazide) 1 Each Tablet 1 Tab PO DAILY Protonix (Pantoprazole Sodium) 20 Mg Tablet.dr 1 Tab PO DAILY Vitamin D3 (Cholecalciferol (Vitamin D3)) 1,000 Unit Tablet 1 Tab PO DAILY Cetirizine Hcl 10 Mg Tablet 1 Tab PO DAILY Janumet 50-1,000 Mg Tablet (Sitagliptin Phos/Metformin Hcl) 1 Each Tablet 1 Tab PO BID Allergies Allergies: Coded Allergies: Sulfa (Sulfonamide Antibiotics) (Verified Allergy, Intermediate, Hives, 06/02/19) latex (Verified Allergy, Intermediate, Swelling, 06/02/19) lisinopril (Verified Allergy, Intermediate, Rash, 7/16/19) levofloxacin (Verified Adverse Reaction, Intermediate, 12/25/21) HEADACHES/FLU-LIKE SYMPTOMS/JOINT PAIN ROS Review of System Negative for fever, chills, weight loss, chest pain, indigestion, hematochezia, melena, and dysuria. Occasional dyspnea positive. Full 14-point review of systems is negative. Physical Exam Physical Examination General: Well-developed, well-nourished white female in no acute distress HEENT: Normocephalic andatraumatic. Temporal arteriespulsatile and nontender. Neck: Supple without bruit, no meningismus Musculoskeletal: Stability:see neurologic. Gait exam:see neurologic. Tone:see neurologic.Strength:see neurologic. Neurological: Mental Status:orientation, memory, attention span/concentration, language, fund of knowledge: A strange aphasia, she can gesture to communicate, but whispers her replies, which are mostly intelligible otherwise. She follows commands accurately. Cranial Nerves:Pupils equal and reactive to light, extraocular movements areintact, visual gil are full to confrontation. Facial sensation is normal. There is a right central facial weakness. Vestibulo-ocular reflex is intact. Palate elevates and tongue protrudes in midline. All other cranial related problems are negative except as mentioned before.Reflexes:2+ and symmetric with flexor plantar responses. Motor: 4/5 right hemiparesis with normal tone and bulk. Coordination:Finger-nose finger and [id number] testing are normal. Rapid alternating movements and fine finger movements are intact. Gait:Not tested. Sensory:Normal pinprick, vibration, light touch, proprioception. Vitals VITALS Vital Signs Date Time Temp Pulse Resp B/P (MAP) Pulse Ox O2 Delivery O2 Flow Rate FiO2 12/25/21 07:00 99 17 159/87 97 Room Air 12/25/21 04:00 98.0 98.0 Labs Labs [place] Labs: Laboratory Tests Test 12/24/21 15:28 12/24/21 15:58 White Blood Count 7.4 x10^3/uL (4.0-11.0) Red Blood Count 4.89 x10^6/uL (3.50-5.40) Hemoglobin 14.4 g/dL (12.0-15.5) Hematocrit 42.2 % (36.0-47.0) Mean Corpuscular Volume 86 fL (79-100) Mean Corpuscular Hemoglobin 29 pg (25-35) Mean Corpuscular Hemoglobin Concent 34 g/dL (31-37) Red Cell Distribution Width 13.5 % (11.5-14.5) Platelet Count 306 x10^3/uL (140-400) Neutrophils (%) (Auto) 60 % (31-73) Lymphocytes (%) (Auto) 31 % (24-48) Monocytes (%) (Auto) 8 % (0-9) Eosinophils (%) (Auto) 1 % (0-3) Basophils (%) (Auto) 1 % (0-3) Neutrophils # (Auto) 4.4 x10^3uL (1.8-7.7) Lymphocytes # (Auto) 2.2 x10^3/uL (1.0-4.8) Monocytes # (Auto) 0.5 x10^3/uL (0.0-1.1) Eosinophils # (Auto) 0.1 x10^3/uL (0.0-0.7) Basophils # (Auto) 0.1 x10^3/uL (0.0-0.2) Glucose (Fingerstick) 189 mg/dL (70-99) H Laboratory Tests Test 12/24/21 23:27 12/25/21 05:49 12/25/21 07:53 12/25/21 07:55 Glucose (Fingerstick) 206 mg/dL (70-99) 183 mg/dL (70-99) Prothrombin Time 12.1 SEC (11.7-14.0) Prothromb Time International Ratio 0.9 (0.8-1.1) White Blood Count 10.7 x10^3/uL (4.0-11.0) Red Blood Count 4.69 x10^6/uL (3.50-5.40) Hemoglobin 13.5 g/dL (12.0-15.5) Hematocrit 39.6 % (36.0-47.0) Mean Corpuscular Volume 84 fL (79-100) Mean Corpuscular Hemoglobin 29 pg (25-35) Mean Corpuscular Hemoglobin Concent 34 g/dL (31-37) Red Cell Distribution Width 13.7 % (11.5-14.5) Platelet Count 312 x10^3/uL (140-400) Neutrophils (%) (Auto) 68 % (31-73) Lymphocytes (%) (Auto) 22 % (24-48) Monocytes (%) (Auto) 8 % (0-9) Eosinophils (%) (Auto) 1 % (0-3) Basophils (%) (Auto) 1 % (0-3) Neutrophils # (Auto) 7.3 x10^3/uL (1.8-7.7) Lymphocytes # (Auto) 2.4 x10^3/uL (1.0-4.8) Monocytes # (Auto) 0.9 x10^3/uL (0.0-1.1) Eosinophils # (Auto) 0.1 x10^3/uL (0.0-0.7) Basophils # (Auto) 0.1 x10^3/uL (0.0-0.2) Sodium Level 143 mmol/L (136-145) Potassium Level 2.9 mmol/L (3.5-5.1) Chloride Level 103 mmol/L (98-107) Carbon Dioxide Level 26 mmol/L (21-32) Anion Gap 14 (6-14) Blood Urea Nitrogen 17 mg/dL (7-20) Creatinine 1.7 mg/dL (0.6-1.0) Estimated GFR (Cockcroft-Gault) 31.4 BUN/Creatinine Ratio 10 (6-20) Glucose Level 181 mg/dL (70-99) Calcium Level 8.9 mg/dL (8.5-10.1) Total Bilirubin 0.8 mg/dL (0.2-1.0) Aspartate Amino Transf (AST/SGOT) 18 U/L (15-37) Alanine Aminotransferase (ALT/SGPT) 18 U/L (14-59) Alkaline Phosphatase 84 U/L (46-116) Total Protein 6.8 g/dL (6.4-8.2) Albumin 3.0 g/dL (3.4-5.0) Albumin/Globulin Ratio 0.8 (1.0-1.7) Triglycerides Level 278 mg/dL (0-150) Cholesterol Level 272 mg/dL (0-200) LDL Cholesterol, Calculated 183 mg/dL (0-100) VLDL Cholesterol, Calculated 56 mg/dL (0-40) Non-HDL Cholesterol Calculated 239 mg/dL (0-129) HDL Cholesterol 33 mg/dL (40-60) Cholesterol/HDL Ratio 8.2 Laboratory Tests Test 12/24/21 23:27 12/25/21 05:49 12/25/21 07:53 12/25/21 07:55 Glucose (Fingerstick) 206 mg/dL (70-99) 183 mg/dL (70-99) Prothrombin Time 12.1 SEC (11.7-14.0) Prothromb Time International Ratio 0.9 (0.8-1.1) White Blood Count 10.7 x10^3/uL (4.0-11.0) Red Blood Count 4.69 x10^6/uL (3.50-5.40) Hemoglobin 13.5 g/dL (12.0-15.5) Hematocrit 39.6 % (36.0-47.0) Mean Corpuscular Volume 84 fL (79-100) Mean Corpuscular Hemoglobin 29 pg (25-35) Mean Corpuscular Hemoglobin Concent 34 g/dL (31-37) Red Cell Distribution Width 13.7 % (11.5-14.5) Platelet Count 312 x10^3/uL (140-400) Neutrophils (%) (Auto) 68 % (31-73) Lymphocytes (%) (Auto) 22 % (24-48) Monocytes (%) (Auto) 8 % (0-9) Eosinophils (%) (Auto) 1 % (0-3) Basophils (%) (Auto) 1 % (0-3) Neutrophils # (Auto) 7.3 x10^3/uL (1.8-7.7) Lymphocytes # (Auto) 2.4 x10^3/uL (1.0-4.8) Monocytes # (Auto) 0.9 x10^3/uL (0.0-1.1) Eosinophils # (Auto) 0.1 x10^3/uL (0.0-0.7) Basophils # (Auto) 0.1 x10^3/uL (0.0-0.2) Sodium Level 143 mmol/L (136-145) Potassium Level 2.9 mmol/L (3.5-5.1) Chloride Level 103 mmol/L (98-107) Carbon Dioxide Level 26 mmol/L (21-32) Anion Gap 14 (6-14) Blood Urea Nitrogen 17 mg/dL (7-20) Creatinine 1.7 mg/dL (0.6-1.0) Estimated GFR (Cockcroft-Gault) 31.4 BUN/Creatinine Ratio 10 (6-20) Glucose Level 181 mg/dL (70-99) Calcium Level 8.9 mg/dL (8.5-10.1) Total Bilirubin 0.8 mg/dL (0.2-1.0) Aspartate Amino Transf (AST/SGOT) 18 U/L (15-37) Alanine Aminotransferase (ALT/SGPT) 18 U/L (14-59) Alkaline Phosphatase 84 U/L (46-116) Total Protein 6.8 g/dL (6.4-8.2) Albumin 3.0 g/dL (3.4-5.0) Albumin/Globulin Ratio 0.8 (1.0-1.7) Triglycerides Level 278 mg/dL (0-150) Cholesterol Level 272 mg/dL (0-200) LDL Cholesterol, Calculated 183 mg/dL (0-100) VLDL Cholesterol, Calculated 56 mg/dL (0-40) Non-HDL Cholesterol Calculated 239 mg/dL (0-129) HDL Cholesterol 33 mg/dL (40-60) Cholesterol/HDL Ratio 8.2 Images Images [facility], 12/24: CT head without contrast No large area of cortical pearl-white matter differentiation loss. The deep pearl nuclei are able to be delineated but there are several small areas of low attenuation along the bilateral deep pearl nuclei as well as at the deep subcortical white matter mainly on the right. Heterogeneity of the brainstem mainly below the midbrain is at least in part artifactual from beam hardening. No acute intracranial hemorrhage. No localized mass effect, midline shift or hydrocephalus. Intact calvarium. Normally aerated mastoid air cells and visualized paranasal sinuses. IMPRESSION: 1. Several age-indeterminate hand baseball sewer infarcts along the deep pearl nuclei and likely at the deep subcortical white matter on the right. No large area of cortical pearl-white matter differentiation loss seen at this time. No acute intracranial hemorrhage. 2. Heterogeneity of the brainstem below the midbrain favored predominantly on account of beam hardening. Attention on forthcoming CT angiography. CT angiography of the head and neck CTA NECK: Arch/Proximal Great Vessels: Patent great vessel origins. No stenosis of the common or subclavian arteries. Carotid Bifurcation/Cervical ICA: Mild calcified and noncalcified atheromatous plaque at the right carotid bulb and minimally on the left. No cervical ICA stenosis. Vertebral Arteries: Patent origins. Essentially codominant luminal caliber minimally larger on the left. No stenosis or dissection throughout the neck. CTA HEAD: Posterior Circulation: Both intracranial vertebral arteries are patent and contribute to basilar flow. The basilar artery is patent. No central occlusion or flow-limiting stenosis of the posterior cerebral arteries. Anterior Circulation: The intracranial ICAs are patent. No large vessel occlusion. Some M3 branches become difficult to delineate on the left but similar findings are present on the right and difficult to confirm as actual pathology. Patent adequately assessed anterior cerebral artery segments. Veins: Patent dural sinuses. MISCELLANEOUS: Prominent size of the thyroid gland with several subcentimeter nodules. Multilevel cervical spine degenerative changes collectively greatest at C5-C6 and C6-C7. A component of central canal stenosis at these levels but not adequat seda characterized. Odontogenic disease with several dental caries and periapical lucencies. IMPRESSION: CT Angio Neck: 1. No flow-limiting stenosis or dissection of the extracranial carotid or vertebral arteries. 2. Somewhat prominent thyroid gland. A few subcentimeter thyroid nodules are noted which do not meet size criteria for dedicated follow-up. Given the size of the gland consider eventual correlation with thyroid function tests. 3. Odontogenic disease. Multilevel cervical spondylosis collectively greatest at C5-C6 and C6-C7. CT Angio Head: 1. No large vessel occlusion or central flow-limiting stenosis. MRI is recommend ed given the apparent severity of the patient's neurologic deficits. 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 Therefore I am keeping in mind other causes including hypertensive encephalopathy Recommendations: MRI of the brain Echocardiogram Rectal aspirin until cleared by speech Rehabilitation modalities Blood pressure parameters corrected Also see stroke orders Discussed with Dr. Chance. Thank you for letting me help with the patient's care. INDER BROWN MD Dec 25, 2021 10:27
[2021-12-25] MEDS: hydrALAZINE 20 MG/ML VIAL. IVP PRN ×3 (11:04→23:55)
[2021-12-25] MEDS: PANTOPRAZOLE 40 MG TABLET.DR. PO SCH (11:30)
--- NOTE | 2021-12-25 15:52 | RAD ---
EXAM: Brain MRI without contrast. HISTORY: Stroke. TECHNIQUE: Multiplanar, multisequence magnetic resonance imaging of the brain was performed without c ontrast. COMPARISON: CT dated 12/24/2021. FINDINGS: The exam is significantly limited due to motion. There is restricted diffusion at the junction of the left thalamus and posterior limb of the left int ernal capsule, the right caudate nucleus, and the junction of the right thalamus and posterior limb o f the right internal capsule, consistent with acute infarction. There is no mass effect or midline sh ift. There is no hydrocephalus. There is a small chronic infarct within the drea to the right of midline. There are also suspected ch ronic infarct involving the bilateral basal ganglia, thalami and centrum semiovale. There are cerebral white changes, most commonly due to chronic small vessel disease. The orbits, para nasal sinuses mastoid air cells are unremarkable. There are normal flow voids within the cerebral ves sels. There is fluid within the mastoid air cells. IMPRESSION: 1. Acute infarcts at the junctions of the left greater than right thalami and posterior limbs of the internal capsules and the right caudate nucleus. 2. Suspected chronic infarcts involving bilateral basal ganglia, bilateral thalami, drea and centrum semiovale. 3. Bilateral cerebral white matter changes, likely due to chronic small vessel disease given the afor ementioned findings. 4. Note is made that the exam is extremely limited due to motion. Findings were discussed with Araceli interstitial edema patient floor, at 1545 hours on 12/25/2021. FOR INTERNAL CODING PURPOSES RESULT CODE: (C) Electronically signed by: Ester Reilly MD (12/25/2021 3:49 PM) [id number]
[2021-12-25] MEDS: IV NORMAL SALINE 1000ML BAG 1,000 ML IV SCH (17:11)
[2021-12-25] MEDS: ATORVASTATIN CALCIUM 40 MG TABLET. PO SCH (19:26)
[2021-12-25 19:49] LABS: CALCIUM 8.7 mg/dL (8.5-10.1); CREATININE 1.8 mg/dL (0.6-1.0); GFR 29.4; POTASSIUM 3.5 mmol/L (3.5-5.1)
[2021-12-26] VITALS (17 sets, daily range): BP systolic 137–214; BP diastolic 78–142
[2021-12-26 01:12] LABS: HEMOGLOBIN A1C 7.4 % (4.8-5.6)
[2021-12-26] MEDS: IV NORMAL SALINE 1000ML BAG 1,000 ML IV SCH ×3 (02:45→18:25)
[2021-12-26] MEDS: hydrALAZINE 20 MG/ML VIAL. IVP PRN ×4 (04:08→18:25)
[2021-12-26] MEDS: INSULIN LISPRO 300 UNITS/3 ML VIAL. SQ SCH ×4 (05:40→23:41)
[2021-12-26] MEDS: LOSARTAN POTASSIUM 50 MG TABLET. PO SCH (07:17)
[2021-12-26] MEDS: PANTOPRAZOLE 40 MG TABLET.DR. PO SCH (07:17)
[2021-12-26] MEDS: CHOLECALCIFEROL (VITAMIN D3) 1,000 UNIT TABLET PO SCH (07:18)
[2021-12-26] MEDS: CETIRIZINE HCL 10 MG TABLET. PO SCH (07:18)
[2021-12-26] MEDS: hydroCHLOROthiazide 25 MG TABLET PO SCH (07:18)
[2021-12-26] MEDS: MONTELUKAST SODIUM 10 MG TABLET. PO SCH (07:18)
[2021-12-26] MEDS: FAMOTIDINE 20 MG/2 ML VIAL IVP SCH (08:38)
--- NOTE | 2021-12-26 09:57 | PDOC ---
PROGRESS NOTES Date of Service DATE: 12/26/21 TIME: 09:53 Assessment Acute infarcts at the junctions of the left greater than right thalami and posterior limbs of the internal capsules and the right caudate nucleus, chronic infarcts involving bilateral basal ganglia, bilateral thalami, drea and centrum semiovale, bilateral cerebral white matter changes Hypertension, hyperlipidemia Plan Await echocardiogram Rectal aspirin until cleared by speech Rehabilitation modalities Blood pressure parameters tightened High-dose statin when safe to take orally Subjective None Objective Vital Signs Date Time Temp Pulse Resp B/P (MAP) Pulse Ox O2 Delivery O2 Flow Rate FiO2 12/26/21 08:38 133 198/142 12/26/21 08:00 98.5 17 96 Room Air 98.5 Intake and Output 12/26/21 07:00 Intake Total 1600 ml Output Total 185 ml Balance 1415 ml Intake Oral 0 ml IV Total 1600 ml Output Urine Total 185 ml PHYSICAL EXAM Alert, nonverbal, still follows a few commands PERRL. EOMI. CN: Right central facial weakness. Muscle tone: normal. Muscle strength: 3/5 right hemiparesis DTR: 2+ Plantar reflex: Flexor Gait: not examined in bed. Sensory exam: no abnormal findings. No cerebellar signs elicited. Review of Relevant I have reviewed the following items chino (where applicable) has been applied. Labs Laboratory Tests Test 12/24/21 23:27 12/25/21 05:49 12/25/21 07:53 12/25/21 07:55 Glucose (Fingerstick) 206 mg/dL (70-99) 183 mg/dL (70-99) Prothrombin Time 12.1 SEC (11.7-14.0) Prothromb Time International Ratio 0.9 (0.8-1.1) White Blood Count 10.7 x10^3/uL (4.0-11.0) Red Blood Count 4.69 x10^6/uL (3.50-5.40) Hemoglobin 13.5 g/dL (12.0-15.5) Hematocrit 39.6 % (36.0-47.0) Mean Corpuscular Volume 84 fL (79-100) Mean Corpuscular Hemoglobin 29 pg (25-35) Mean Corpuscular Hemoglobin Concent 34 g/dL (31-37) Red Cell Distribution Width 13.7 % (11.5-14.5) Platelet Count 312 x10^3/uL (140-400) Neutrophils (%) (Auto) 68 % (31-73) Lymphocytes (%) (Auto) 22 % (24-48) Monocytes (%) (Auto) 8 % (0-9) Eosinophils (%) (Auto) 1 % (0-3) Basophils (%) (Auto) 1 % (0-3) Neutrophils # (Auto) 7.3 x10^3/uL (1.8-7.7) Lymphocytes # (Auto) 2.4 x10^3/uL (1.0-4.8) Monocytes # (Auto) 0.9 x10^3/uL (0.0-1.1) Eosinophils # (Auto) 0.1 x10^3/uL (0.0-0.7) Basophils # (Auto) 0.1 x10^3/uL (0.0-0.2) Sodium Level 143 mmol/L (136-145) Potassium Level 2.9 mmol/L (3.5-5.1) Chloride Level 103 mmol/L (98-107) Carbon Dioxide Level 26 mmol/L (21-32) Anion Gap 14 (6-14) Blood Urea Nitrogen 17 mg/dL (7-20) Creatinine 1.7 mg/dL (0.6-1.0) Estimated GFR (Cockcroft-Gault) 31.4 BUN/Creatinine Ratio 10 (6-20) Glucose Level 181 mg/dL (70-99) Hemoglobin A1c 7.4 % (4.8-5.6) Calcium Level 8.9 mg/dL (8.5-10.1) Total Bilirubin 0.8 mg/dL (0.2-1.0) Aspartate Amino Transf (AST/SGOT) 18 U/L (15-37) Alanine Aminotransferase (ALT/SGPT) 18 U/L (14-59) Alkaline Phosphatase 84 U/L (46-116) Total Protein 6.8 g/dL (6.4-8.2) Albumin 3.0 g/dL (3.4-5.0) Albumin/Globulin Ratio 0.8 (1.0-1.7) Triglycerides Level 278 mg/dL (0-150) Cholesterol Level 272 mg/dL (0-200) LDL Cholesterol, Calculated 183 mg/dL (0-100) VLDL Cholesterol, Calculated 56 mg/dL (0-40) Non-HDL Cholesterol Calculated 239 mg/dL (0-129) HDL Cholesterol 33 mg/dL (40-60) Cholesterol/HDL Ratio 8.2 Test 12/25/21 12:55 12/25/21 18:35 12/25/21 19:20 12/25/21 23:47 Glucose (Fingerstick) 182 mg/dL (70-99) 166 mg/dL (70-99) 132 mg/dL (70-99) Sodium Level 143 mmol/L (136-145) Potassium Level 3.5 mmol/L (3.5-5.1) Chloride Level 106 mmol/L (98-107) Carbon Dioxide Level 24 mmol/L (21-32) Anion Gap 13 (6-14) Blood Urea Nitrogen 20 mg/dL (7-20) Creatinine 1.8 mg/dL (0.6-1.0) Estimated GFR (Cockcroft-Gault) 29.4 Glucose Level 154 mg/dL (70-99) Calcium Level 8.7 mg/dL (8.5-10.1) Test 12/26/21 05:10 Glucose (Fingerstick) 176 mg/dL (70-99) Laboratory Tests Test 12/25/21 12:55 12/25/21 18:35 12/25/21 19:20 12/25/21 23:47 Glucose (Fingerstick) 182 mg/dL (70-99) 166 mg/dL (70-99) 132 mg/dL (70-99) Sodium Level 143 mmol/L (136-145) Potassium Level 3.5 mmol/L (3.5-5.1) Chloride Level 106 mmol/L (98-107) Carbon Dioxide Level 24 mmol/L (21-32) Anion Gap 13 (6-14) Blood Urea Nitrogen 20 mg/dL (7-20) Creatinine 1.8 mg/dL (0.6-1.0) Estimated GFR (Cockcroft-Gault) 29.4 Glucose Level 154 mg/dL (70-99) Calcium Level 8.7 mg/dL (8.5-10.1) Test 12/26/21 05:10 Glucose (Fingerstick) 176 mg/dL (70-99) Medications Current Medications Hydralazine HCl (Apresoline Inj) 10 mg PRN Q4HRS PRN IVP ELEVATED BP, SEE COMMENTS Last administered on 12/26/21at 08:38; Start 12/24/21 at 20:15 Acetaminophen (Tylenol) 650 mg PRN Q6HRS PRN PO MILD PAIN / TEMP > 100.3'F; Start 12/24/21 at 20:15 Ondansetron HCl (Zofran) 4 mg PRN Q4HRS PRN IVP NAUSEA/VOMITING; Start 12/24/21 at 20:15 Olanzapine (ZyPREXA ZYDIS) 5 mg PRN BID PRN PO ANXIETY / AGITATION Last administered on 12/24/21at 22:49; Start 12/24/21 at 20:15 Bisacodyl (Dulcolax Supp) 10 mg PRN DAILY PRN OR CONSTIPATION; Start 12/24/21 at 20:15 Nicardipine HCl 50 mg/Sodium Chloride 250 ml @ 25 mls/hr CONT PRN PRN IV PER PROTOCOL Last administered on 12/24/21at 23:41; Start 12/24/21 at 20:15 Atorvastatin Calcium (Lipitor) 80 mg QHS PO ; Start 12/24/21 at 21:00 Acetaminophen (Tylenol) 650 mg PRN Q6HRS PRN PO MILD PAIN / TEMP > 100.3'F; Start 12/24/21 at 20:15; Stop 12/24/21 at 20:17; Status DC Bisacodyl (Dulcolax Supp) 10 mg PRN DAILY PRN OR CONSTIPATION; Start 12/24/21 at 20:15; Status UNV Famotidine (Pepcid Vial) 20 mg BID IVP Last administered on 12/26/21at 08:38; Start 12/24/21 at 21:00; Stop 12/26/21 at 08:51; Status DC Aspirin (Aspirin Rectal Supp) 300 mg PRN DAILY PRN OR IF UNABLE TO TAKE PO; Start 12/24/21 at 20:15 Acetaminophen (Tylenol Supp) 650 mg PRN Q6HRS PRN OR MILD PAIN / TEMP > 100.3'F; Start 12/24/21 at 20:15 Insulin Human Lispro (HumaLOG) 0-9 UNITS Q6HRS SQ ; Start 12/25/21 at 00:00 Dextrose (Dextrose 50%-Water Syringe) 12.5 gm PRN Q15MIN PRN IV SEE COMMENTS; Start 12/24/21 at 20:15 Dextrose (Iv Dextrose 5%) 250 ml PRN Q15MIN PRN IV SEE COMMENTS; Start 12/24/21 at 20:15 Potassium Chloride/Water 100 ml @ 100 mls/hr Q1H IV ; Start 12/25/21 at 09:00; Stop 12/25/21 at 10:59; Status UNV Potassium Chloride/Water 100 ml @ 100 mls/hr Q1H IV Last administered on 12/25/21at 13:16; Start 12/25/21 at 09:00; Stop 12/25/21 at 12:59; Status DC Cetirizine HCl (ZyrTEC) 10 mg DAILY PO ; Start 12/25/21 at 10:00 Vitamin D (Vitamin D3) 1,000 unit DAILY PO ; Start 12/25/21 at 10:00 Montelukast Sodium (Singulair) 10 mg DAILY PO ; Start 12/25/21 at 10:00 Losartan Potassium (Cozaar) 100 mg DAILY PO ; Start 12/25/21 at 10:00 Pantoprazole Sodium (Protonix) 40 mg DAILYAC PO ; Start 12/25/21 at 11:30 Lorazepam (Ativan Inj) 2 mg PRN Q4HRS PRN IVP ANXIETY / AGITATION Last administered on 12/26/21at 00:15; Start 12/25/21 at 10:00 Hydrochlorothiazide (Hydrodiuril) 25 mg DAILY PO ; Start 12/25/21 at 10:00 Sodium Chloride 1,000 ml @ 125 mls/hr Q8H IV Last administered on 12/26/21at 02:45; Start 12/25/21 at 17:00 Famotidine (Pepcid Vial) 20 mg DAILY IVP ; Start 12/27/21 at 09:00 Active Scripts Active Reported Montelukast Sodium 10 Mg Tablet 1 Tab PO DAILY Stool Softener (Docusate Sodium) 50 Mg Capsule 50 Mg PO BID [place] 5-325 Tablet (Acetaminophen/Hydrocodone Bitart) 1 Each Tablet 1 Tab PO Q4HRS LAST DOSE GIVEN: Lantus Solostar (Insulin Glargine,Hum.rec.anlog) 100 Unit/1 Ml Insuln.pen 21 Uni t SQ QHS Culturelle (Lactobacillus Rhamnosus Gg) 1 Each Capsule 1 Each PO DAILY Alive Once Daily Women 50 Plus (Mv-Mn/Folic Acid/Vit K/Lzta238) 1 Each Tablet 1 Each PO DAILY [place] 5-325 Tablet (Acetaminophen/Hydrocodone Bitart) 1 Each Tablet 1 Tab PO PRN Q6HRS PRN Tizanidine Hcl 4 Mg Tablet 2 Tab PO TID PRN Proair Hfa Inhaler (Albuterol Sulfate) 8.5 Gm Hfa.aer.ad 1 Puff INH PRN Q6HRS PRN Montelukast Sodium Tablet (Montelukast Sodium) 10 Mg Tablet 1 Tab PO DAILY Losartan-Hctz 100-25 Mg Tab (Losartan/Hydrochlorothiazide) 1 Each Tablet 1 Tab PO DAILY Protonix (Pantoprazole Sodium) 20 Mg Tablet.dr 1 Tab PO DAILY Vitamin D3 (Cholecalciferol (Vitamin D3)) 1,000 Unit Tablet 1 Tab PO DAILY Cetirizine Hcl 10 Mg Tablet 1 Tab PO DAILY Janumet 50-1,000 Mg Tablet (Sitagliptin Phos/Metformin Hcl) 1 Each Tablet 1 Tab PO BID Vitals/I & O Vital Sign - Last 24 Hours 12/25/21 12/25/21 12/25/21 12/25/21 10:00 11:00 11:04 12:00 Temp 97.7 97.7 Pulse 102 132 121 132 Resp 29 21 21 B/P (MAP) 185/87 204/112 204/112 173/96 Pulse Ox 94 94 94 O2 Delivery Room Air Room Air Room Air 12/25/21 12/25/21 12/25/21 12/25/21 12:15 13:00 16:00 17:12 Temp 98.0 98.0 Pulse 132 114 114 Resp 16 B/P (MAP) 140/109 141/72 189/121 197/91 Pulse Ox 94 93 O2 Delivery Room Air Room Air 12/25/21 12/25/21 12/26/21 12/26/21 20:36 23:55 00:00 00:30 Temp 98.1 98.3 98.1 98.3 Pulse 116 116 115 Resp B/P (MAP) 173/95 (121) 196/95 196/98 (130) 156/78 (104) Pulse Ox 95 98 O2 Delivery Room Air Room Air 2/812/26/21 12/26/21 12/26/21 04:00 04:08 08:00 08:38 Temp 98.1 98.5 98.1 98.5 Pulse 114 115 133 133 Resp 24 17 B/P (MAP) 182/96 (124) 178/88 198/142 (160) 198/142 Pulse Ox 99 96 O2 Delivery Room Air Room Air Intake and Output 12/25/21 12/25/21 12/26/21 15:00 23:00 07:00 Intake Total 400 ml 238 ml 962 ml Output Total 100 ml 85 ml Balance 300 ml 153 ml 962 ml Justicifation of Admission Dx: Justifications for Admission: Justification of Admission Dx: Yes Stroke - Ischemic: Stroke-Ischemic INDER BROWN MD Dec 26, 2021 09:57
--- NOTE | 2021-12-26 12:02 | CARD ---
MR#: [id number] Date of Study: 12/25/2021 Ordering Physician: INDER BROWN, Referring Physician: INDER BROWN, Tech: Irene Sandhu, [facility] APPROVED REPORT EXAM: Two-dimensional and M-mode echocardiogram with Doppler and color Doppler. Other Information Quality : FairHR: 135bpm Technically limited study due to Restless patient/ rapid heart rate INDICATION CVA/TIA Echo Enhancing Agent Indication: Rule Out Septal Defect Agent/Amount Used: Agitated Saline 10mL RISK FACTORS Hypertension Diabetes Smoking Asthma 2D DIMENSIONS Left Atrium(2D)2.6 (1.6-4.0cm)IVSd1.2 (0.7-1.1cm) Aortic Root(2D)3.0 (2.0-3.7cm)LVDd4.1 (3.9-5.9cm) LVOT Diameter2.0 (1.8-2.4cm)PWd1.0 (0.7-1.1cm) LVDs2.8 (2.5-4.0cm)FS (%) 31.0 % SV42.5 ml Aortic Valve AoV Peak Delfino.163.0cm/Maki Peak GR.10.6mmHg Tricuspid Valve TR P. [id number] [id number] TR Peak [id number] LEFT VENTRICLE The left ventricle is normal size. There is mild concentric left ventricular hypertrophy. The left ve ntricular systolic function is normal and the ejection fraction is within normal range. LV ejection f raction of 55 to 60% There is normal LV segmental wall motion. Tissue Doppler not performed. RIGHT VENTRICLE The right ventricle is normal size. There is normal right ventricular wall thickness. The right ventr icular systolic function is normal. ATRIA The left atrium size is normal. The right atrium size is normal. Bubble study is negative. AORTIC VALVE The aortic valve is not well visualized. Doppler and Color Flow revealed no significant aortic regurg itation. There is no significant aortic valvular stenosis. There is a maximum gradient of 11 mmHg. MITRAL VALVE The mitral valve is normal in structure and function. There is no evidence of mitral valve prolapse. There is no mitral valve stenosis. Doppler and Color-flow revealed trace mitral regurgitation. TRICUSPID VALVE The tricuspid valve is normal in structure and function. Doppler and Color Flow revealed trace tricus pid regurgitation with an estimated PAP of 38 mmHg. There is no tricuspid valve stenosis. PULMONIC VALVE The pulmonic valve is not well visualized. Doppler and Color Flow revealed no pulmonic valvular regur gitation. GREAT VESSELS The aortic root is normal in size. The IVC is normal in size and collapses >50% with inspiration. PERICARDIAL EFFUSION There is no evidence of significant pericardial effusion. Critical Notification Critical Value: No <Conclusion> The left ventricle is normal size. The left ventricular systolic function is normal and the ejection fraction is within normal range. LV ejection fraction of 55 to 60% There is mild concentric left ventricular hypertrophy. Bubble study is negative. Doppler and Color Flow revealed no significant aortic regurgitation. There is no significant aortic valvular stenosis. There is a maximum gradient of 11 mmHg. Doppler and Color-flow revealed trace mitral regurgitation. Doppler and Color Flow revealed trace tricuspid regurgitation with an estimated PAP of 38 mmHg. Signed by : Sterling Vinson MD Electronically Approved : 12/26/2021 12:02:31
[2021-12-26] MEDS: LABETALOL 20 MG/4 ML DISP.SYRIN. IVP PRN ×2 (13:20→16:43)
[2021-12-26] MEDS: HEPARIN for SUB-Q USE 5,000 UNIT/ML VIAL. SQ SCH ×2 (14:25→21:29)
--- NOTE | 2021-12-26 14:46 | PDOC ---
[employer] PROGRESS NOTE Date of Service DOS: DATE: 12/26/21 TIME: 14:44 Chief Complaint Chief Complaint Expressive aphasia unilateral weakness secondary to suspected CVA. History hypertension diabetes -Patient presented with worsening neurologic symptoms outside hospital. No definitive findings on CTA head scans. Sent here for neuro consult and MRI -Neurology consulted. MRI with acute infarcts -ECHO still pending -Speech pathology recommending NPO for now -PT OT -Home meds resumed as indicated -We will start a sliding scale insulin -will contact and discuss with family History of Present Illness History of Present Illness 12/26 Evaluated and examined at bedside. Is a bit lethargic today difficulty staying awake this morning. MRI showing acute infarcts. Neurology continues to follow. Patient remains aphasic. Therapy modalities. Blood pressure control with IV until able to take oral Okay to transfer out of ICU to CVC if bed is needed Vitals/I&O Vitals/I&O: Vital Signs Date Time Temp Pulse Resp B/P (MAP) Pulse Ox O2 Delivery O2 Flow Rate FiO2 12/26/21 14:29 103 217/104 12/26/21 08:00 98.5 17 96 Room Air 98.5 I & O 12/25/21 12/25/21 12/26/21 15:00 23:00 07:00 Intake Total 400 ml 238 ml 962 ml Output Total 100 ml 85 ml Balance 300 ml 153 ml 962 ml Physical Exam General: Alert, Cooperative Heart: Regular rate Lungs: Clear Abdomen: Normal bowel sounds, Soft, No tenderness Extremities: No edema, Normal pulses Skin: No significant lesion Labs Labs: Laboratory Tests Test 12/25/21 18:35 12/25/21 19:20 12/25/21 23:47 12/26/21 05:10 Glucose (Fingerstick) 166 mg/dL (70-99) 132 mg/dL (70-99) 176 mg/dL (70-99) Sodium Level 143 mmol/L (136-145) Potassium Level 3.5 mmol/L (3.5-5.1) Chloride Level 106 mmol/L (98-107) Carbon Dioxide Level 24 mmol/L (21-32) Anion Gap 13 (6-14) Blood Urea Nitrogen 20 mg/dL (7-20) Creatinine 1.8 mg/dL (0.6-1.0) Estimated GFR (Cockcroft-Gault) 29.4 Glucose Level 154 mg/dL (70-99) Calcium Level 8.7 mg/dL (8.5-10.1) Comment Review of Relevant I have reviewed the following items chino (where applicable) has been applied. Medications: Current Medications Medications (Trade) Dose Ordered Sig/Fabio Route PRN Reason Start Time Stop Time Status Last Admin Dose Admin Sodium Chloride 1,000 ml @ 125 mls/hr Q8H IV 12/25/21 17:00 12/26/21 11:17 Labetalol HCl (Normodyne Iv Push) 10 mg PRN Q2HR PRN IVP HYPERTENSION 12/26/21 13:15 12/26/21 13:20 Heparin Sodium (Porcine) (Heparin Sodium) 5,000 unit Q8HRS SQ 12/26/21 14:00 12/26/21 14:25 Justifications for Admission TIA Indications Persistent neurologic signs?: Yes Justification for admission: There is persistence of patient's focal neurologic signs or symptoms or there is concern for recurrence of patient's neurological signs and symptoms. Severe hypertension?: Yes Justification for admission: There is concern for patient's severe hypertension of (>180/110mmHg--please indicate patient's BP here) that has not been controlled by ED treatment. Patient needs inpatient level of care for further evaluation and management. Other Justification JUDY PATINO MD Dec 26, 2021 14:46
--- NOTE | 2021-12-26 15:07 | NUR ---
SS following up with discharge planning. SS reviewed pt chart and discussed with pt RN. Pt is currently on room air. Neurology following. PT/OT ordered. NPO. ST following. Self pay. [facility] following. SS discussed with Palak Doty in [facility]. Palak reaching out to pt's spouse to start process of disability and Medicaid application. SS contacted pt's spouse and left voicemail notifying him that Palak will be calling. Possible need for Medicaid pending placement once applications are completed and submitted. SS will continue to follow for discharge planning.
[2021-12-26] MEDS: NICOTINE 21MG PATCH. TD SCH (15:12)
[2021-12-26] MEDS: cloNIDine TTS-2 1 PATCH PATCH TD SCH (15:13)
--- NOTE | 2021-12-26 15:17 | NUR ---
spoke with Dr Caicedo earlier regarding pt hypertension, prn labetalol ordered. labetalol and hydralazine given, pt blood pressure still 214/103. spoke with Dr Caicedo again, clonidine patch, nicotine patch and to give prn ativan. all those medications given, will continue to monitor.
[2021-12-26] MEDS: NITROGLYCERIN OINT 1 GM PACKET. TP SCH ×2 (17:44→23:33)
[2021-12-26] MEDS: ATORVASTATIN CALCIUM 40 MG TABLET. PO SCH (19:30)
[2021-12-27] VITALS (14 sets, daily range): BP systolic 155–215; BP diastolic 78–109
[2021-12-27] MEDS: IV NORMAL SALINE 1000ML BAG 1,000 ML IV SCH ×3 (02:36→21:00)
[2021-12-27] MEDS: hydrALAZINE 20 MG/ML VIAL. IVP PRN (03:39)
[2021-12-27] MEDS: NITROGLYCERIN OINT 1 GM PACKET. TP SCH ×4 (05:42→23:31)
[2021-12-27] MEDS: HEPARIN for SUB-Q USE 5,000 UNIT/ML VIAL. SQ SCH ×3 (05:46→20:58)
[2021-12-27] MEDS: INSULIN LISPRO 300 UNITS/3 ML VIAL. SQ SCH ×4 (05:47→23:31)
[2021-12-27] MEDS: PANTOPRAZOLE 40 MG TABLET.DR. PO SCH (07:30)
--- NOTE | 2021-12-27 08:32 | PDOC ---
PROGRESS NOTES Date of Service DATE: 12/27/21 TIME: 08:24 Assessment Small vessel disease, negative CTA and echocardiogram: acute infarcts at the junctions of the left greater than right thalami and posterior limbs of the internal capsules and the right caudate nucleus, chronic infarcts involving bilateral basal ganglia, bilateral thalami, drea and centrum semiovale, bilateral cerebral white matter changes Doubt embolic phenomenon in these brain locations Hypertension, hyperlipidemia, says they did not have insurance and she could not afford to see the doctor, she was taking her blood pressure medicine but he does not think she was taking any cholesterol medicine Plan Rectal aspirin until cleared by speech, has been too lethargic to participate with speech therapy Rehabilitation modalities Blood pressure parameters tightened High-dose statin when safe to take orally Discussed with Subjective None Objective Vital Signs Date Time Temp Pulse Resp B/P (MAP) Pulse Ox O2 Delivery O2 Flow Rate FiO2 12/27/21 05:42 85 196/98 12/27/21 04:00 98.2 21 98 Room Air 98.2 Intake and Output 12/27/21 07:00 Intake Total 2441 ml Output Total 625 ml Balance 1816 ml IV Total 2441 ml Output Urine Total 625 ml PHYSICAL EXAM Lethargic, nonverbal, still follows a few commands PERRL. EOMI. CN: Right central facial weakness. Muscle tone: normal. Muscle strength: 3/5 right hemiparesis DTR: 2+ Plantar reflex: Flexor Gait: not examined in bed. Sensory exam: no abnormal findings. No cerebellar signs elicited. Review of Relevant I have reviewed the following items chino (where applicable) has been applied. Labs Laboratory Tests Test 12/25/21 12:55 12/25/21 18:35 12/25/21 19:20 12/25/21 23:47 Glucose (Fingerstick) 182 mg/dL (70-99) 166 mg/dL (70-99) 132 mg/dL (70-99) Sodium Level 143 mmol/L (136-145) Potassium Level 3.5 mmol/L (3.5-5.1) Chloride Level 106 mmol/L (98-107) Carbon Dioxide Level 24 mmol/L (21-32) Anion Gap 13 (6-14) Blood Urea Nitrogen 20 mg/dL (7-20) Creatinine 1.8 mg/dL (0.6-1.0) Estimated GFR (Cockcroft-Gault) 29.4 Glucose Level 154 mg/dL (70-99) Calcium Level 8.7 mg/dL (8.5-10.1) Test 12/26/21 05:10 12/26/21 18:24 12/26/21 23:39 12/27/21 05:45 Glucose (Fingerstick) 176 mg/dL (70-99) 165 mg/dL (70-99) 159 mg/dL (70-99) 172 mg/dL (70-99) Laboratory Tests Test 12/26/21 18:24 12/26/21 23:39 12/27/21 05:45 Glucose (Fingerstick) 165 mg/dL (70-99) 159 mg/dL (70-99) 172 mg/dL (70-99) Medications Current Medications Hydralazine HCl (Apresoline Inj) 10 mg PRN Q4HRS PRN IVP ELEVATED BP, SEE COMMENTS Last administered on 12/27/21at 03:39; Start 12/24/21 at 20:15 Acetaminophen (Tylenol) 650 mg PRN Q6HRS PRN PO MILD PAIN / TEMP > 100.3'F; Start 12/24/21 at 20:15 Ondansetron HCl (Zofran) 4 mg PRN Q4HRS PRN IVP NAUSEA/VOMITING; Start 12/24/21 at 20:15 Olanzapine (ZyPREXA ZYDIS) 5 mg PRN BID PRN PO ANXIETY / AGITATION Last administered on 12/24/21at 22:49; Start 12/24/21 at 20:15 Bisacodyl (Dulcolax Supp) 10 mg PRN DAILY PRN [facility] CONSTIPATION; Start 12/24/21 at 20:15 Nicardipine HCl 50 mg/Sodium Chloride 250 ml @ 25 mls/hr CONT PRN PRN IV PER PROTOCOL Last administered on 12/24/21at 23:41; Start 12/24/21 at 20:15 Atorvastatin Calcium (Lipitor) 80 mg QHS PO ; Start 12/24/21 at 21:00 Acetaminophen (Tylenol) 650 mg PRN Q6HRS PRN PO MILD PAIN / TEMP > 100.3'F; Start 12/24/21 at 20:15; Stop 12/24/21 at 20:17; Status DC Bisacodyl (Dulcolax Supp) 10 mg PRN DAILY PRN [facility] CONSTIPATION; Start 12/24/21 at 20:15; Status UNV Famotidine (Pepcid Vial) 20 mg BID IVP Last administered on 12/26/21at 08:38; Start 12/24/21 at 21:00; Stop 12/26/21 at 08:51; Status DC Aspirin (Aspirin Rectal Supp) 300 mg PRN DAILY PRN [facility] IF UNABLE TO TAKE PO; Start 12/24/21 at 20:15 Acetaminophen (Tylenol Supp) 650 mg PRN Q6HRS PRN [place] MILD PAIN / TEMP > 100.3'F; Start 12/24/21 at 20:15 Insulin Human Lispro (HumaLOG) 0-9 UNITS Q6HRS SQ ; Start 12/25/21 at 00:00 Dextrose (Dextrose 50%-Water Syringe) 12.5 gm PRN Q15MIN PRN IV SEE COMMENTS; Start 12/24/21 at 20:15 Dextrose (Iv Dextrose 5%) 250 ml PRN Q15MIN PRN IV SEE COMMENTS; Start 12/24/21 at 20:15 Potassium Chloride/Water 100 ml @ 100 mls/hr Q1H IV ; Start 12/25/21 at 09:00; Stop 12/25/21 at 10:59; Status UNV Potassium Chloride/Water 100 ml @ 100 mls/hr Q1H IV Last administered on 12/25/21at 13:16; Start 12/25/21 at 09:00; Stop 12/25/21 at 12:59; Status DC Cetirizine HCl (ZyrTEC) 10 mg DAILY PO ; Start 12/25/21 at 10:00 Vitamin D (Vitamin D3) 1,000 unit DAILY PO ; Start 12/25/21 at 10:00 Montelukast Sodium (Singulair) 10 mg DAILY PO ; Start 12/25/21 at 10:00 Losartan Potassium (Cozaar) 100 mg DAILY PO ; Start 12/25/21 at 10:00 Pantoprazole Sodium (Protonix) 40 mg DAILYAC PO ; Start 12/25/21 at 11:30 Lorazepam (Ativan Inj) 2 mg PRN Q4HRS PRN IVP ANXIETY / AGITATION Last administered on 12/27/21at 03:39; Start 12/25/21 at 10:00 Hydrochlorothiazide (Hydrodiuril) 25 mg DAILY PO ; Start 12/25/21 at 10:00 Sodium Chloride 1,000 ml @ 125 mls/hr Q8H IV Last administered on 12/27/21at 02:36; Start 12/25/21 at 17:00 Famotidine (Pepcid Vial) 20 mg DAILY IVP ; Start 12/27/21 at 09:00 Labetalol HCl (Normodyne Iv Push) 10 mg PRN Q2HR PRN IVP HYPERTENSION Last administered on 12/26/21at 13:20; Start 12/26/21 at 13:15 Heparin Sodium (Porcine) (Heparin Sodium) 5,000 unit Q8HRS SQ Last administered on 12/27/21at 05:46; Start 12/26/21 at 14:00 Labetalol HCl (Normodyne Iv Push) 20 mg PRN Q2HR PRN IVP HYPERTENSION Last administered on 12/26/21at 16:43; Start 12/26/21 at 13:30 Clonidine HCl (Catapres Tts-2) 1 patch WEEKLY TD Last administered on 12/26/21at 15:13; Start 12/26/21 at 15:00 Nicotine (Nicoderm Cq 21mg) 1 patch DAILY TD Last administered on 12/26/21at 15:12; Start 12/26/21 at 15:00 Nitroglycerin (Nitro-Bid Oint) 1 inch Q6HRS TP Last administered on 12/27/21at 05:42; Start 12/26/21 at 18:00 Active Scripts Active Reported Montelukast Sodium 10 Mg Tablet 1 Tab PO DAILY Stool Softener (Docusate Sodium) 50 Mg Capsule 50 Mg PO BID Ransom 5-325 Tablet (Acetaminophen/Hydrocodone Bitart) 1 Each Tablet 1 Tab PO Q4HRS LAST DOSE GIVEN: Lantus Solostar (Insulin Glargine,Hum.rec.anlog) 100 Unit/1 Ml Insuln.pen 21 Unit SQ QHS Culturelle (Lactobacillus Rhamnosus Gg) 1 Each Capsule 1 Each PO DAILY Alive Once Daily Women 50 Plus (Mv-Mn/Folic Acid/Vit K/Spwm801) 1 Each Tablet 1 Each PO DAILY Ransom 5-325 Tablet (Acetaminophen/Hydrocodone Bitart) 1 Each Tablet 1 Tab PO PRN Q6HRS PRN Tizanidine Hcl 4 Mg Tablet 2 Tab PO TID PRN Proair Hfa Inhaler (Albuterol Sulfate) 8.5 Gm Hfa.aer.ad 1 Puff INH PRN Q6HRS PRN Montelukast Sodium Tablet (Montelukast Sodium) 10 Mg Tablet 1 Tab PO DAILY Losartan-Hctz 100-25 Mg Tab (Losartan/Hydrochlorothiazide) 1 Each Tablet 1 Tab PO DAILY Protonix (Pantoprazole Sodium) 20 Mg Tablet.dr 1 Tab PO DAILY Vitamin D3 (Cholecalciferol (Vitamin D3)) 1,000 Unit Tablet 1 Tab PO DAILY Cetirizine Hcl 10 Mg Tablet 1 Tab PO DAILY Janumet 50-1,000 Mg Tablet (Sitagliptin Phos/Metformin Hcl) 1 Each Tablet 1 Tab PO BID Vitals/I & O Vital Sign - Last 24 Hours 12/26/21 12/26/21 12/26/21 12/26/21 08:38 12:00 13:20 14:29 Temp 98.1 98.1 Pulse 133 120 109 103 Resp 22 B/P (MAP) 198/142 214/116 (148) 206/116 217/104 Pulse Ox 95 O2 Delivery Room Air 12/26/21 12/26/21 12/26/21 12/26/21 15:00 16:00 16:15 16:30 Temp 98.6 98.6 Pulse 100 96 104 96 Resp 17 B/P (MAP) 208/90 (129) 201/90 (127) 203/105 (137) 211/95 (133) Pulse Ox 96 O2 Delivery Room Air 12/26/21 12/26/21 12/26/21 12/26/21 16:43 16:45 17:00 17:15 Pulse 97 84 84 84 B/P (MAP) 197/95 137/108 (118) 208/95 (132) 204/98 (133) 12/26/21 12/26/21 12/26/21 12/26/21 17:30 17:44 17:45 18:00 Pulse 86 85 86 86 B/P (MAP) 200/142 (161) 207/123 206/92 (130) 208/117 (147) 12/26/21 12/26/21 12/26/21 12/26/21 18:25 20:00 23:33 23:59 Temp 98.4 98.4 Pulse 86 86 86 82 Resp 18 26 B/P (MAP) 210/146 153/83 (106) 169/79 178/88 (118) Pulse Ox 94 95 O2 Delivery Room Air Room Air 12/27/21 12/27/21 12/27/21 12/27/21 00:00 03:39 04:00 05:42 Temp 98.2 98.2 98.2 98.2 Pulse 85 85 85 85 Resp 26 21 B/P (MAP) 169/78 (108) 208/98 174/88 (116) 196/98 Pulse Ox 97 98 O2 Delivery Room Air Room Air Intake and Output 12/26/21 12/26/21 12/27/21 15:00 23:00 07:00 Intake Total 1571 ml 870 ml Output Total 425 ml 200 ml Balance 1146 ml 670 ml Images EXAM: Two-dimensional and M-mode echocardiogram with Doppler and color Doppler. Other Information Quality : Fair HR: 135bpm Technically limited study due to Restless patient/ rapid heart rate INDICATION CVA/TIA Echo Enhancing Agent Indication: Rule Out Septal Defect Agent/Amount Used: Agitated Saline 10mL RISK FACTORS Hypertension Diabetes Smoking Asthma 2D DIMENSIONS Left Atrium(2D) 2.6 (1.6-4.0cm) IVSd 1.2 (0.7-1.1cm) Aortic Root(2D) 3.0 (2.0-3.7cm) LVDd 4.1 (3.9-5.9cm) LVOT Diameter 2.0 (1.8-2.4cm) PWd 1.0 (0.7-1.1cm) LVDs 2.8 (2.5-4.0cm) FS (%) 31.0 % SV 42.5 ml Aortic Valve AoV Peak Delfino. 163.0cm/s AO Peak GR. 10.6mmHg Tricuspid Valve TR P. Velocity 217cm/s RAP ESTIMATE 3mmHg TR Peak Gr. 35mmHg RVSP 38mmHg LEFT VENTRICLE The left ventricle is normal size. There is mild concentric left ventricular hypertrophy. The left ventricular systolic function is normal and the ejection fraction is within normal range. LV ejection fraction of 55 to 60% There is normal LV segmental wall motion. Tissue Doppler not performed. RIGHT VENTRICLE The right ventricle is normal size. There is normal right ventricular wall th ickness. The right ventricular systolic function is normal. ATRIA The left atrium size is normal. The right atrium size is normal. Bubble study is negative. AORTIC VALVE The aortic valve is not well visualized. Doppler and Color Flow revealed no sign ificant aortic regurgitation. There is no significant aortic valvular stenosis. There is a maximum gradient of 11 mmHg. MITRAL VALVE The mitral valve is normal in structure and function. There is no evidence of mitral valve prolapse. There is no mitral valve stenosis. Doppler and Color-flow revealed trace mitral regurgitation. TRICUSPID VALVE The tricuspid valve is normal in structure and function. Doppler and Color Flow revealed trace tricuspid regurgitation with an estimated PAP of 38 mmHg. There is no tricuspid valve stenosis. PULMONIC VALVE The pulmonic valve is not well visualized. Doppler and Color Flow revealed no pu lmonic valvular regurgitation. GREAT VESSELS The aortic root is normal in size. The IVC is normal in size and collapses >50% with inspiration. PERICARDIAL EFFUSION There is no evidence of significant pericardial effusion. Critical Notification Critical Value: No <Conclusion> The left ventricle is normal size. The left ventricular systolic function is normal and the ejection fraction is within normal range. LV ejection fraction of 55 to 60% There is mild concentric left ventricular hypertrophy. Bubble study is negative. Doppler and Color Flow revealed no significant aortic regurgitation. There is no significant aortic valvular stenosis. There is a maximum gradient of 11 mmHg. Doppler and Color-flow revealed trace mitral regurgitation. Doppler and Color Flow revealed trace tricuspid regurgitation with an estimated PAP of 38 mmHg. Justicifation of Admission Dx: Justifications for Admission: Justification of Admission Dx: Yes Stroke - Ischemic: Stroke-Ischemic INDER BROWN MD Dec 27, 2021 08:32
[2021-12-27] MEDS: LOSARTAN POTASSIUM 50 MG TABLET. PO SCH (08:50)
[2021-12-27] MEDS: CETIRIZINE HCL 10 MG TABLET. PO SCH (08:51)
[2021-12-27] MEDS: MONTELUKAST SODIUM 10 MG TABLET. PO SCH (08:51)
[2021-12-27] MEDS: hydroCHLOROthiazide 25 MG TABLET PO SCH (08:51)
[2021-12-27] MEDS: CHOLECALCIFEROL (VITAMIN D3) 1,000 UNIT TABLET PO SCH (08:51)
[2021-12-27] MEDS: LABETALOL 20 MG/4 ML DISP.SYRIN. IVP PRN (08:55)
[2021-12-27] MEDS: FAMOTIDINE 20 MG/2 ML VIAL IVP SCH (08:55)
[2021-12-27] MEDS: NICOTINE 21MG PATCH. TD SCH (08:56)
--- NOTE | 2021-12-27 11:18 | PDOC ---
[facility] PROGRESS NOTE Date of Service DOS: DATE: 12/27/21 TIME: 11:15 Chief Complaint Chief Complaint Expressive aphasia unilateral weakness secondary to suspected CVA. History hypertension diabetes -Patient presented with worsening neurologic symptoms outside hospital. No definitive findings on CTA head scans. Sent here for neuro consult and MRI -Neurology consulted. MRI with acute infarcts -ECHO still pending -Speech pathology recommending NPO for now -PT OT -Home meds resumed as indicated -We will start a sliding scale insulin -will contact and discuss with family History of Present Illness History of Present Illness 12/27 Evaluated and examined at bedside. She was resting in bed not easily awoken and still cannot provide me really with any history given her aphasic state. She did have some withdrawal to pain in the right lower extremity still no movement and right upper. PT OT. Neuro following. Plan discussed bedside RN. 12/26 Evaluated and examined at bedside. Is a bit lethargic today difficulty staying awake this morning. MRI showing acute infarcts. Neurology continues to follow. Patient remains aphasic. Therapy modalities. Blood pressure control with IV until able to take oral Okay to transfer out of ICU to CVC if bed is needed Vitals/I&O Vitals/I&O: Vital Signs Date Time Temp Pulse Resp B/P (MAP) Pulse Ox O2 Delivery O2 Flow Rate FiO2 12/27/21 08:55 88 215/103 12/27/21 08:00 97.7 20 95 Room Air 97.7 I & O 12/26/21 12/26/21 12/27/21 15:00 23:00 07:00 Intake Total 1571 ml 870 ml Output Total 425 ml 200 ml Balance 1146 ml 670 ml Physical Exam General: Alert, Cooperative Heart: Regular rate Lungs: Clear Abdomen: Normal bowel sounds, Soft, No tenderness Extremities: No edema, Normal pulses Skin: No significant lesion Labs Labs: Laboratory Tests Test 12/26/21 18:24 12/26/21 23:39 12/27/21 05:45 Glucose (Fingerstick) 165 mg/dL (70-99) 159 mg/dL (70-99) 172 mg/dL (70-99) Comment Review of Relevant I have reviewed the following items chino (where applicable) has been applied. Medications: Current Medications Medications (Trade) Dose Ordered Sig/Fabio Route PRN Reason Start Time Stop Time Status Last Admin Dose Admin Famotidine (Pepcid Vial) 20 mg DAILY IVP 12/27/21 09:00 12/27/21 08:55 Labetalol HCl (Normodyne Iv Push) 10 mg PRN Q2HR PRN IVP HYPERTENSION (1ST) 12/26/21 13:15 12/26/21 13:20 Heparin Sodium (Porcine) (Heparin Sodium) 5,000 unit Q8HRS SQ 12/26/21 14:00 12/27/21 05:46 Labetalol HCl (Normodyne Iv Push) 20 mg PRN Q2HR PRN IVP HYPERTENSION (1ST) 12/26/21 13:30 12/27/21 08:55 Clonidine HCl (Catapres Tts-2) 1 patch WEEKLY TD 12/26/21 15:00 12/26/21 15:13 Nicotine (Nicoderm Cq 21mg) 1 patch DAILY TD 12/26/21 15:00 12/27/21 08:56 Nitroglycerin (Nitro-Bid Oint) 1 inch Q6HRS TP 12/26/21 18:00 12/27/21 05:42 Justifications for Admission TIA Indications Persistent neurologic signs?: Yes Justification for admission: There is persistence of patient's focal neurologic signs or symptoms or there is concern for recurrence of patient's neurological signs and symptoms. Severe hypertension?: Yes Justification for admission: There is concern for patient's severe hypertension of (>180/110mmHg--please indicate patient's BP here) that has not been controlled by ED treatment. Patient needs inpatient level of care for further evaluation and management. Other Justification JUDY PATINO MD Dec 27, 2021 11:18
[2021-12-27] MEDS: ATORVASTATIN CALCIUM 40 MG TABLET. PO SCH (19:34)
[2021-12-28] VITALS (19 sets, daily range): BP systolic 138–217; BP diastolic 76–90
[2021-12-28] MEDS: HEPARIN for SUB-Q USE 5,000 UNIT/ML VIAL. SQ SCH ×3 (05:29→20:24)
[2021-12-28] MEDS: INSULIN LISPRO 300 UNITS/3 ML VIAL. SQ SCH ×4 (05:31→23:54)
[2021-12-28] MEDS: NITROGLYCERIN OINT 1 GM PACKET. TP SCH ×4 (06:00→23:43)
[2021-12-28] MEDS: PANTOPRAZOLE 40 MG TABLET.DR. PO SCH (07:30)
[2021-12-28] MEDS: LOSARTAN POTASSIUM 50 MG TABLET. PO SCH (08:39)
[2021-12-28] MEDS: MONTELUKAST SODIUM 10 MG TABLET. PO SCH (08:40)
[2021-12-28] MEDS: CHOLECALCIFEROL (VITAMIN D3) 1,000 UNIT TABLET PO SCH (08:40)
[2021-12-28] MEDS: CETIRIZINE HCL 10 MG TABLET. PO SCH (08:40)
[2021-12-28] MEDS: hydroCHLOROthiazide 25 MG TABLET PO SCH (08:40)
[2021-12-28] MEDS: NICOTINE 21MG PATCH. TD SCH (08:43)
[2021-12-28] MEDS: FAMOTIDINE 20 MG/2 ML VIAL IVP SCH (08:43)
--- NOTE | 2021-12-28 10:18 | PDOC ---
[facility] PROGRESS NOTE Date of Service DOS: DATE: 12/28/21 TIME: 10:16 Chief Complaint Chief Complaint Expressive aphasia unilateral weakness secondary to suspected CVA. History hypertension diabetes -Patient presented with worsening neurologic symptoms outside hospital. No definitive findings on CTA head scans. Sent here for neuro consult and MRI -Neurology consulted. MRI with acute infarcts -ECHO still pending -Speech pathology recommending NPO for now -PT OT -Home meds resumed as indicated -We will start a sliding scale insulin -will contact and discuss with family History of Present Illness History of Present Illness 12/28 Patient evaluated examined at bedside. She was sleeping in bed unable to get her to open her eyes even with sternal rub. Some withdrawal to pain in the right lower extremity none in right upper extremity. Unable to follow commands to see if she could hold her arm against gravity. Still having some trouble controlling blood pressure is still on Cardene drip for now. Will schedule Vasotec and try to start weaning off the Cardene drip. 12/27 Evaluated and examined at bedside. She was resting in bed not easily awoken and still cannot provide me really with any history given her aphasic state. She did have some withdrawal to pain in the right lower extremity still no movement and right upper. PT OT. Neuro following. Plan discussed bedside RN. 12/26 Evaluated and examined at bedside. Is a bit lethargic today difficulty staying awake this morning. MRI showing acute infarcts. Neurology continues to follow. Patient remains aphasic. Therapy modalities. Blood pressure control with IV until able to take oral Okay to transfer out of ICU to CVC if bed is needed Vitals/I&O Vitals/I&O: Vital Signs Date Time Temp Pulse Resp B/P (MAP) Pulse Ox O2 Delivery O2 Flow Rate FiO2 12/28/21 10:00 105 18 138/77 96 Room Air 12/28/21 08:00 97.1 97.1 I & O 12/27/21 12/27/21 12/28/21 15:00 23:00 07:00 Intake Total 1685 ml 1602 ml Output Total 600 ml 250 ml 400 ml Balance -600 ml 1435 ml 1202 ml Physical Exam General: Other (does no open eyes to stimuli. cannot follow commands) Heart: Regular rate Lungs: Clear Abdomen: Normal bowel sounds, Soft, No tenderness Extremities: No edema, Normal pulses Skin: No significant lesion Labs Labs: Laboratory Tests Test 12/27/21 12:25 12/27/21 18:30 12/27/21 23:25 12/28/21 05:31 Glucose (Fingerstick) 170 mg/dL (70-99) 201 mg/dL (70-99) 212 mg/dL (70-99) 221 mg/dL (70-99) Comment Review of Relevant I have reviewed the following items chino (where applicable) has been applied. Justifications for Admission TIA Indications Persistent neurologic signs?: Yes Justification for admission: There is persistence of patient's focal neurologic signs or symptoms or there is concern for recurrence of patient's neurological signs and symptoms. Severe hypertension?: Yes Justification for admission: There is concern for patient's severe hypertension of (>180/110mmHg--please indicate patient's BP here) that has not been controlled by ED treatment. Patient needs inpatient level of care for further evaluation and management. Other Justification JUDY PATINO MD Dec 28, 2021 10:18
[2021-12-28] MEDS: IV NORMAL SALINE 1000ML BAG 1,000 ML IV SCH (12:15)
--- NOTE | 2021-12-28 12:23 | PDOC ---
PROGRESS NOTES Date of Service DATE: 12/28/21 TIME: 12:21 Assessment Small vessel disease, negative CTA and echocardiogram: acute infarcts at the junctions of the left greater than right thalami and posterior limbs of the internal capsules and the right caudate nucleus, chronic infarcts involving bilateral basal ganglia, bilateral thalami, drea and centrum semiovale, bilateral cerebral white matter changes Doubt embolic phenomenon in these brain locations Hypertension, hyperlipidemia, says they did not have insurance and she could not afford to see the doctor, she was taking her blood pressure medicine but he does not think she was taking any cholesterol medicine Plan Rectal aspirin until cleared by speech, has been too lethargic to participate with speech therapy Rehabilitation modalities Blood pressure parameters tightened to150/90 on 12/28 High-dose statin when safe to take orally Discussed with on 12/27 Will need decision about PEG Will consider repeat MRI if she remains lethargic Consider stimulant therapy, but she will need PEG or regaining her swallowing function. Needs long-term rehab, has no insurance Subjective None Objective Vital Signs Date Time Temp Pulse Resp B/P (MAP) Pulse Ox O2 Delivery O2 Flow Rate FiO2 12/28/21 10:00 105 18 138/77 96 Room Air 12/28/21 08:00 97.1 97.1 Intake and Output 12/28/21 07:00 Intake Total 3287 ml Output Total 1250 ml Balance 2037 ml IV Total 3287 ml Output Urine Total 1250 ml PHYSICAL EXAM Lethargic, nonverbal, opens eyes a little when examiner calls her name PERRL. EOMI. CN: Right central facial weakness. Muscle tone: normal. Muscle strength: 3/5 right hemiparesis DTR: 2+ Plantar reflex: Flexor Gait: not examined in bed. Sensory exam: no abnormal findings. No cerebellar signs elicited. Review of Relevant I have reviewed the following items chino (where applicable) has been applied. Labs Laboratory Tests Test 12/26/21 18:24 12/26/21 23:39 12/27/21 05:45 12/27/21 12:25 Glucose (Fingerstick) 165 mg/dL (70-99) 159 mg/dL (70-99) 172 mg/dL (70-99) 170 mg/dL (70-99) Test 12/27/21 18:30 12/27/21 23:25 12/28/21 05:31 Glucose (Fingerstick) 201 mg/dL (70-99) 212 mg/dL (70-99) 221 mg/dL (70-99) Laboratory Tests Test 12/27/21 12:25 12/27/21 18:30 12/27/21 23:25 12/28/21 05:31 Glucose (Fingerstick) 170 mg/dL (70-99) 201 mg/dL (70-99) 212 mg/dL (70-99) 221 mg/dL (70-99) Medications Current Medications Hydralazine HCl (Apresoline Inj) 10 mg PRN Q4HRS PRN IVP ELEVATED BP, SEE COMMENTS Last administered on 12/27/21at 03:39; Start 12/24/21 at 20:15 Acetaminophen (Tylenol) 650 mg PRN Q6HRS PRN PO MILD PAIN / TEMP > 100.3'F; Start 12/24/21 at 20:15 Ondansetron HCl (Zofran) 4 mg PRN Q4HRS PRN IVP NAUSEA/VOMITING; Start 12/24/21 at 20:15 Olanzapine (ZyPREXA ZYDIS) 5 mg PRN BID PRN PO ANXIETY / AGITATION Last administered on 12/24/21at 22:49; Start 12/24/21 at 20:15 Bisacodyl (Dulcolax Supp) 10 mg PRN DAILY PRN [place] CONSTIPATION; Start 12/24/21 at 20:15 Nicardipine HCl 50 mg/Sodium Chloride 250 ml @ 25 mls/hr CONT PRN PRN IV PER PROTOCOL Last administered on 12/27/21at 15:42; Start 12/24/21 at 20:15 Atorvastatin Calcium (Lipitor) 80 mg QHS PO ; Start 12/24/21 at 21:00 Acetaminophen (Tylenol) 650 mg PRN Q6HRS PRN PO MILD PAIN / TEMP > 100.3'F; Start 12/24/21 at 20:15; Stop 12/24/21 at 20:17; Status DC Bisacodyl (Dulcolax Supp) 10 mg PRN DAILY PRN [place] CONSTIPATION; Start 12/24/21 at 20:15; Status UNV Famotidine (Pepcid Vial) 20 mg BID IVP Last administered on 12/26/21at 08:38; Start 12/24/21 at 21:00; Stop 12/26/21 at 08:51; Status DC Aspirin (Aspirin Rectal Supp) 300 mg PRN DAILY PRN MD IF UNABLE TO TAKE PO; Start 12/24/21 at 20:15 Acetaminophen (Tylenol Supp) 650 mg PRN Q6HRS PRN MD MILD PAIN / TEMP > 100.3'F; Start 12/24/21 at 20:15 Insulin Human Lispro (HumaLOG) 0-9 UNITS Q6HRS SQ ; Start 12/25/21 at 00:00 Dextrose (Dextrose 50%-Water Syringe) 12.5 gm PRN Q15MIN PRN IV SEE COMMENTS; Start 12/24/21 at 20:15 Dextrose (Iv Dextrose 5%) 250 ml PRN Q15MIN PRN IV SEE COMMENTS; Start 12/24/21 at 20:15 Potassium Chloride/Water 100 ml @ 100 mls/hr Q1H IV ; Start 12/25/21 at 09:00; Stop 12/25/21 at 10:59; Status UNV Potassium Chloride/Water 100 ml @ 100 mls/hr Q1H IV Last administered on 12/25/21at 13:16; Start 12/25/21 at 09:00; Stop 12/25/21 at 12:59; Status DC Cetirizine HCl (ZyrTEC) 10 mg DAILY PO ; Start 12/25/21 at 10:00 Vitamin D (Vitamin D3) 1,000 unit DAILY PO ; Start 12/25/21 at 10:00 Montelukast Sodium (Singulair) 10 mg DAILY PO ; Start 12/25/21 at 10:00 Losartan Potassium (Cozaar) 100 mg DAILY PO ; Start 12/25/21 at 10:00 Pantoprazole Sodium (Protonix) 40 mg DAILYAC PO ; Start 12/25/21 at 11:30 Lorazepam (Ativan Inj) 2 mg PRN Q4HRS PRN IVP ANXIETY / AGITATION Last administered on 12/28/21at 08:43; Start 12/25/21 at 10:00 Hydrochlorothiazide (Hydrodiuril) 25 mg DAILY PO ; Start 12/25/21 at 10:00 Sodium Chloride 1,000 ml @ 50 mls/hr Q20H IV Last administered on 12/28/21at 12:15; Start 12/25/21 at 17:00 Famotidine (Pepcid Vial) 20 mg DAILY IVP Last administered on 12/28/21at 08:43; Start 12/27/21 at 09:00 Labetalol HCl (Normodyne Iv Push) 10 mg PRN Q2HR PRN IVP HYPERTENSION (1ST) Last administered on 12/26/21at 13:20; Start 12/26/21 at 13:15 Heparin Sodium (Porcine) (Heparin Sodium) 5,000 unit Q8HRS SQ Last administered on 12/28/21at 05:29; Start 12/26/21 at 14:00 Labetalol HCl (Normodyne Iv Push) 20 mg PRN Q2HR PRN IVP HYPERTENSION (1ST) Last administered on 12/27/21at 08:55; Start 12/26/21 at 13:30 Clonidine HCl (Catapres Tts-2) 1 patch WEEKLY TD Last administered on 12/26/21 15:13; Start 12/26/21 at 15:00 Nicotine (Nicoderm Cq 21mg) 1 patch DAILY TD Last administered on 12/28/21at 08:43; Start 12/26/21 at 15:00 Nitroglycerin (Nitro-Bid Oint) 1 inch Q6HRS TP Last administered on 12/28/21 06:00; Start 12/26/21 at 18:00 Enalaprilat (Vasotec Inj) 1.25 mg Q6HRS IVP ; Start 12/28/21 at 12:00 Active Scripts Active Reported Montelukast Sodium 10 Mg Tablet 1 Tab PO DAILY Stool Softener (Docusate Sodium) 50 Mg Capsule 50 Mg PO BID [place] 5-325 Tablet (Acetaminophen/Hydrocodone Bitart) 1 Each Tablet 1 Tab PO Q4HRS LAST DOSE GIVEN: Lantus Solostar (Insulin Glargine,Hum.rec.anlog) 100 Unit/1 Ml Insuln.pen 21 Unit SQ QHS Culturelle (Lactobacillus Rhamnosus Gg) 1 Each Capsule 1 Each PO DAILY Alive Once Daily Women 50 Plus (Mv-Mn/Folic Acid/Vit K/Kgam408) 1 Each Tablet 1 Each PO DAILY [place] 5-325 Tablet (Acetaminophen/Hydrocodone Bitart) 1 Each Tablet 1 Tab PO PRN Q6HRS PRN Tizanidine Hcl 4 Mg Tablet 2 Tab PO TID PRN Proair Hfa Inhaler (Albuterol Sulfate) 8.5 Gm Hfa.aer.ad 1 Puff INH PRN Q6HRS PRN Montelukast Sodium Tablet (Montelukast Sodium) 10 Mg Tablet 1 Tab PO DAILY Losartan-Hctz 100-25 Mg Tab (Losartan/Hydrochlorothiazide) 1 Each Tablet 1 Tab PO DAILY Protonix (Pantoprazole Sodium) 20 Mg Tablet. 1 Tab PO DAILY Vitamin D3 (Cholecalciferol (Vitamin D3)) 1,000 Unit Tablet 1 Tab PO DAILY Cetirizine Hcl 10 Mg Tablet 1 Tab PO DAILY Janumet 50-1,000 Mg Tablet (Sitagliptin Phos/Metformin Hcl) 1 Each Tablet 1 Tab PO BID Vitals/I & O Vital Sign - Last 24 Hours 12/27/21 12/27/21 12/27/21 12/27/21 12:26 14:23 16:00 17:00 Temp 97.1 97.1 Pulse 96 100 109 128 Resp 20 26 21 B/P (MAP) 191/109 175/90 (118) 180/96 (124) 167/100 (122) Pulse Ox 98 97 97 O2 Delivery Room Air Room Air Room Air 12/27/21 12/27/21 12/27/21 12/27/21 18:00 18:29 19:00 20:00 Temp 98.4 98.4 Pulse 103 103 98 100 Resp 20 20 20 B/P (MAP) 170/87 (114) 170/87 164/81 165/88 Pulse Ox 96 100 99 O2 Delivery Room Air Room Air Room Air 12/27/21 12/27/21 12/27/21 12/27/21 21:00 22:00 23:00 23:31 Pulse 114 100 99 100 Resp 30 28 20 B/P (MAP) 196/93 155/90 171/82 155/79 Pulse Ox 99 99 96 O2 Delivery Room Air Room Air Room Air 12/27/21 12/28/21 12/28/21 12/28/21 23:59 01:00 02:00 03:00 Temp 98.5 98.5 Pulse 100 102 112 105 Resp 22 24 24 23 B/P (MAP) 188/79 168/78 158/78 155/79 Pulse Ox 98 96 97 97 O2 Delivery Room Air Room Air Room Air Room Air 12/28/21 12/28/21 12/28/21 12/28/21 04:00 05:00 06:00 06:00 Temp 97.9 97.9 Pulse 101 103 109 103 Resp 23 26 28 B/P (MAP) 165/76 157/82 149/80 163/82 Pulse Ox 99 94 98 O2 Delivery Room Air Room Air Room Air 12/28/21 12/28/21 12/28/21 12/28/21 07:00 08:00 09:00 10:00 Temp 97.1 97.1 Pulse 132 119 107 105 Resp 35 24 44 18 B/P (MAP) 169/90 161/79 151/79 138/77 Pulse Ox 95 97 96 96 O2 Delivery Room Air Room Air Room Air Room Air Intake and Output 12/27/21 12/27/21 12/28/21 15:00 23:00 07:00 Intake Total 1685 ml 1602 ml Output Total 600 ml 250 ml 400 ml Balance -600 ml 1435 ml 1202 ml Justicifation of Admission Dx: Justifications for Admission: Justification of Admission Dx: Yes Stroke - Ischemic: Stroke-Ischemic INDER BROWN MD Dec 28, 2021 12:23
[2021-12-28] MEDS: ENALAPRILAT 1.25 MG/ML VIAL. IVP SCH ×3 (14:25→23:43)
--- NOTE | 2021-12-28 14:46 | NUR ---
SS following up with discharge planning. SS reviewed pt chart and discussed with pt RN. Pt is currently on room air. PT/OT following. NPO. ST following. Self pay. [facility] following. Probable need for Medicaid pending placement once applications are submitted. SS will continue to follow for discharge planning.
[2021-12-28] MEDS: hydrALAZINE 20 MG/ML VIAL. IVP PRN ×2 (17:07→21:17)
--- NOTE | 2021-12-28 19:23 | NUR ---
Patient arrived to room 652 via bed from ICU around 1645. Patient awake with eyes open but unable to speak, follow commands, or track. VS unstable, but patient restless/agitated acting from being moved over to a different bed. PRN Ativan & PRN hydralazine administered, along with schedule 1800 BP meds, & patient's VS improved. Patient currently asleep. Patient's family came to visit. Will continue to monitor.
[2021-12-28] MEDS: ATORVASTATIN CALCIUM 40 MG TABLET. PO SCH (19:53)
[2021-12-29] VITALS (11 sets, daily range): BP systolic 157–205; BP diastolic 87–108
[2021-12-29] MEDS: hydrALAZINE 20 MG/ML VIAL. IVP PRN ×4 (03:01→20:19)
[2021-12-29] MEDS: INSULIN LISPRO 300 UNITS/3 ML VIAL. SQ SCH ×4 (06:00→23:42)
[2021-12-29] MEDS: NITROGLYCERIN OINT 1 GM PACKET. TP SCH ×4 (06:06→23:07)
[2021-12-29] MEDS: PANTOPRAZOLE 40 MG TABLET.DR. PO SCH (06:07)
[2021-12-29] MEDS: ENALAPRILAT 1.25 MG/ML VIAL. IVP SCH ×4 (06:07→23:06)
[2021-12-29] MEDS: HEPARIN for SUB-Q USE 5,000 UNIT/ML VIAL. SQ SCH ×3 (06:07→20:33)
[2021-12-29] MEDS: MONTELUKAST SODIUM 10 MG TABLET. PO SCH (07:54)
[2021-12-29] MEDS: CHOLECALCIFEROL (VITAMIN D3) 1,000 UNIT TABLET PO SCH (07:54)
[2021-12-29] MEDS: hydroCHLOROthiazide 25 MG TABLET PO SCH (07:54)
[2021-12-29] MEDS: LOSARTAN POTASSIUM 50 MG TABLET. PO SCH (07:54)
[2021-12-29] MEDS: CETIRIZINE HCL 10 MG TABLET. PO SCH (07:55)
[2021-12-29] MEDS: IV NORMAL SALINE 1000ML BAG 1,000 ML IV SCH (08:14)
[2021-12-29] MEDS: FAMOTIDINE 20 MG/2 ML VIAL IVP SCH (08:16)
[2021-12-29] MEDS: NICOTINE 21MG PATCH. TD SCH (08:16)
--- NOTE | 2021-12-29 11:06 | PDOC ---
[employer] PROGRESS NOTE Date of Service DOS: DATE: 12/29/21 TIME: 11:05 Chief Complaint Chief Complaint Expressive aphasia unilateral weakness secondary to suspected CVA. History hypertension diabetes -Patient presented with worsening neurologic symptoms outside hospital. No definitive findings on CTA head scans. Sent here for neuro consult and MRI -Neurology consulted. MRI with acute infarcts -ECHO still pending -Speech pathology recommending NPO for now -PT OT -Home meds resumed as indicated -We will start a sliding scale insulin -will contact and discuss with family History of Present Illness History of Present Illness To you 1122 No acute events overnight. Patient seen examined bedside. Sleeping in bed and unable to be arousable with sternal rub or to voice. Patient unable to follow through with speech evaluation. Will need to consider TPN for nutrition. Medicaid application pending. Patient's chart, labs, images were reviewed and discussed with RN 12/28 Patient evaluated examined at bedside. She was sleeping in bed unable to get her to open her eyes even with sternal rub. Some withdrawal to pain in the right lower extremity none in right upper extremity. Unable to follow commands to see if she could hold her arm against gravity. Still having some trouble controlling blood pressure is still on Cardene drip for now. Will schedule Vasotec and try to start weaning off the Cardene drip. 12/27 Evaluated and examined at bedside. She was resting in bed not easily awoken and still cannot provide me really with any history given her aphasic state. She did have some withdrawal to pain in the right lower extremity still no movement and right upper. PT OT. Neuro following. Plan discussed bedside RN. 12/26 Evaluated and examined at bedside. Is a bit lethargic today difficulty staying awake this morning. MRI showing acute infarcts. Neurology continues to follow. Patient remains aphasic. Therapy modalities. Blood pressure control with IV until able to take oral Okay to transfer out of ICU to CVC if bed is needed Vitals/I&O Vitals/I&O: Vital Signs Date Time Temp Pulse Resp B/P (MAP) Pulse Ox O2 Delivery O2 Flow Rate FiO2 12/29/21 10:21 96.7 108 24 176/101 (126) 90 Room Air 96.7 I & O 12/28/21 12/28/21 12/29/21 15:00 23:00 07:00 Intake Total 0 ml 0 ml Output Total 200 ml 600 ml Balance -200 ml 0 ml -600 ml Physical Exam General: Other (does no open eyes to stimuli. cannot follow commands) Heart: Regular rate Lungs: Clear Abdomen: Normal bowel sounds, Soft, No tenderness Extremities: No edema, Normal pulses Skin: No significant lesion Labs Labs: Laboratory Tests Test 12/28/21 14:34 12/28/21 18:08 12/28/21 23:52 12/29/21 06:16 Glucose (Fingerstick) 158 mg/dL (70-99) 197 mg/dL (70-99) 186 mg/dL (70-99) 152 mg/dL (70-99) Comment Review of Relevant I have reviewed the following items chino (where applicable) has been applied. Medications: Current Medications Medications (Trade) Dose Ordered Sig/Fabio Route PRN Reason Start Time Stop Time Status Last Admin Dose Admin Enalaprilat (Vasotec Inj) 1.25 mg Q6HRS IVP 12/28/21 12:00 12/29/21 06:07 Justifications for Admission TIA Indications Persistent neurologic signs?: Yes Justification for admission: There is persistence of patient's focal neurologic signs or symptoms or there is concern for recurrence of patient's neurological signs and symptoms. Severe hypertension?: Yes Justification for admission: There is concern for patient's severe hypertension of (>180/110mmHg--please indicate patient's BP here) that has not been controlled by ED treatment. Patient needs inpatient level of care for further evaluation and management. Other Justification JALEN LEON MD Dec 29, 2021 11:06
--- NOTE | 2021-12-29 11:17 | PDOC ---
PROGRESS NOTES Date of Service DATE: 12/29/21 TIME: 11:16 Assessment Small vessel disease, negative CTA and echocardiogram: acute infarcts at the junctions of the left greater than right thalami and posterior limbs of the internal capsules and the right caudate nucleus, chronic infarcts involving bilateral basal ganglia, bilateral thalami, drea and centrum semiovale, bilateral cerebral white matter changes Doubt embolic phenomenon in these brain locations Hypertension, hyperlipidemia, says they did not have insurance and she could not afford to see the doctor, she was taking her blood pressure medicine but he does not think she was taking any cholesterol medicine Plan Rectal aspirin until cleared by speech, has been too lethargic to participate with speech therapy Rehabilitation modalities Blood pressure parameters tightened to150/90 on 12/28 High-dose statin when safe to take orally Discussed with on 12/27 and 12/29, he is agreeable to PEG placement Will consider repeat MRI next week if she remains lethargic, 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 Needs long-term rehab, has no insurance Subjective None Objective Vital Signs Date Time Temp Pulse Resp B/P (MAP) Pulse Ox O2 Delivery O2 Flow Rate FiO2 12/29/21 10:21 96.7 108 24 176/101 (126) 90 Room Air 96.7 Intake and Output 12/29/21 07:00 Intake Total 0 ml Output Total 800 ml Balance -800 ml Intake Oral 0 ml Output Urine Total 800 ml PHYSICAL EXAM Lethargic, nonverbal, opens eyes a little when examiner calls her name PERRL. EOMI. CN: Right central facial weakness. Muscle tone: normal. Muscle strength: 3/5 right hemiparesis DTR: 2+ Plantar reflex: Flexor Gait: not examined in bed. Sensory exam: no abnormal findings. No cerebellar signs elicited. Review of Relevant I have reviewed the following items chino (where applicable) has been applied. Labs Laboratory Tests Test 12/27/21 12:25 12/27/21 18:30 12/27/21 23:25 12/28/21 05:31 Glucose (Fingerstick) 170 mg/dL (70-99) 201 mg/dL (70-99) 212 mg/dL (70-99) 221 mg/dL (70-99) Test 12/28/21 14:34 12/28/21 18:08 12/28/21 23:52 12/29/21 06:16 Glucose (Fingerstick) 158 mg/dL (70-99) 197 mg/dL (70-99) 186 mg/dL (70-99) 152 mg/dL (70-99) Laboratory Tests Test 12/28/21 14:34 12/28/21 18:08 12/28/21 23:52 12/29/21 06:16 Glucose (Fingerstick) 158 mg/dL (70-99) 197 mg/dL (70-99) 186 mg/dL (70-99) 152 mg/dL (70-99) Medications Current Medications Hydralazine HCl (Apresoline Inj) 10 mg PRN Q4HRS PRN IVP ELEVATED BP, SEE COMMENTS Last administered on 12/29/21at 08:18; Start 12/24/21 at 20:15 Acetaminophen (Tylenol) 650 mg PRN Q6HRS PRN PO MILD PAIN / TEMP > 100.3'F; Start 12/24/21 at 20:15 Ondansetron HCl (Zofran) 4 mg PRN Q4HRS PRN IVP NAUSEA/VOMITING; Start 12/24/21 at 20:15 Olanzapine (ZyPREXA ZYDIS) 5 mg PRN BID PRN PO ANXIETY / AGITATION Last administered on 12/24/21at 22:49; Start 12/24/21 at 20:15 Bisacodyl (Dulcolax Supp) 10 mg PRN DAILY PRN [place] CONSTIPATION; Start 12/24/21 at 20:15 Nicardipine HCl 50 mg/Sodium Chloride 250 ml @ 25 mls/hr CONT PRN PRN IV PER PROTOCOL Last administered on 12/27/21at 15:42; Start 12/24/21 at 20:15 Atorvastatin Calcium (Lipitor) 80 mg QHS PO ; Start 12/24/21 at 21:00 Acetaminophen (Tylenol) 650 mg PRN Q6HRS PRN PO MILD PAIN / TEMP > 100.3'F; Start 12/24/21 at 20:15; Stop 12/24/21 at 20:17; Status DC Bisacodyl (Dulcolax Supp) 10 mg PRN DAILY PRN [place] CONSTIPATION; Start 12/24/21 at 20:15; Status UNV Famotidine (Pepcid Vial) 20 mg BID IVP Last administered on 12/26/21at 08:38; Start 12/24/21 at 21:00; Stop 12/26/21 at 08:51; Status DC Aspirin (Aspirin Rectal Supp) 300 mg PRN DAILY PRN [place] IF UNABLE TO TAKE PO Last administered on 12/29/21at 10:28; Start 12/24/21 at 20:15 Acetaminophen (Tylenol Supp) 650 mg PRN Q6HRS PRN [place] MILD PAIN / TEMP > 100.3'F; Start 12/24/21 at 20:15 Insulin Human Lispro (HumaLOG) 0-9 UNITS Q6HRS SQ ; Start 12/25/21 at 00:00 Dextrose (Dextrose 50%-Water Syringe) 12.5 gm PRN Q15MIN PRN IV SEE COMMENTS; Start 12/24/21 at 20:15 Dextrose (Iv Dextrose 5%) 250 ml PRN Q15MIN PRN IV SEE COMMENTS; Start 12/24/21 at 20:15 Potassium Chloride/Water 100 ml @ 100 mls/hr Q1H IV ; Start 12/25/21 at 09:00; Stop 12/25/21 at 10:59; Status UNV Potassium Chloride/Water 100 ml @ 100 mls/hr Q1H IV Last administered on 12/25/21at 13:16; Start 12/25/21 at 09:00; Stop 12/25/21 at 12:59; Status DC Cetirizine HCl (ZyrTEC) 10 mg DAILY PO ; Start 12/25/21 at 10:00 Vitamin D (Vitamin D3) 1,000 unit DAILY PO ; Start 12/25/21 at 10:00 Montelukast Sodium (Singulair) 10 mg DAILY PO ; Start 12/25/21 at 10:00 Losartan Potassium (Cozaar) 100 mg DAILY PO ; Start 12/25/21 at 10:00 Pantoprazole Sodium (Protonix) 40 mg DAILYAC PO ; Start 12/25/21 at 11:30 Lorazepam (Ativan Inj) 2 mg PRN Q4HRS PRN IVP ANXIETY / AGITATION Last ad ministered on 12/29/21at 10:30; Start 12/25/21 at 10:00 Hydrochlorothiazide (Hydrodiuril) 25 mg DAILY PO ; Start 12/25/21 at 10:00 Sodium Chloride 1,000 ml @ 50 mls/hr Q20H IV Last administered on 12/29/21at 08:14; Start 12/25/21 at 17:00 Famotidine (Pepcid Vial) 20 mg DAILY IVP Last administered on 12/29/21at 08:16; Start 12/27/21 at 09:00 Labetalol HCl (Normodyne Iv Push) 10 mg PRN Q2HR PRN IVP HYPERTENSION (1ST) Last administered on 12/26/21at 13:20; Start 12/26/21 at 13:15 Heparin Sodium (Porcine) (Heparin Sodium) 5,000 unit Q8HRS SQ Last administered on 12/29/21at 06:07; Start 12/26/21 at 14:00 Labetalol HCl (Normodyne Iv Push) 20 mg PRN Q2HR PRN IVP HYPERTENSION (1ST) Last administered on 12/27/21at 08:55; Start 12/26/21 at 13:30 Clonidine HCl (Catapres Tts-2) 1 patch WEEKLY TD Last administered on 12/26/21at 15:13; Start 12/26/21 at 15:00 Nicotine (Nicoderm Cq 21mg) 1 patch DAILY TD Last administered on 12/29/21at 08:16; Start 12/26/21 at 15:00 Nitroglycerin (Nitro-Bid Oint) 1 inch Q6HRS TP Last administered on 12/29/21at 06:06; Start 12/26/21 at 18:00 Enalaprilat (Vasotec Inj) 1.25 mg Q6HRS IVP Last administered on 12/29/21at 06:07; Start 12/28/21 at 12:00 Active Scripts Active Reported Montelukast Sodium 10 Mg Tablet 1 Tab PO DAILY Stool Softener (Docusate Sodium) 50 Mg Capsule 50 Mg PO BID [place] 5-325 Tablet (Acetaminophen/Hydrocodone Bitart) 1 Each Tablet 1 Tab PO Q4HRS LAST DOSE GIVEN: Lantus Solostar (Insulin Glargine,Hum.rec.anlog) 100 Unit/1 Ml Insuln.pen 21 Unit SQ QHS Culturelle (Lactobacillus Rhamnosus Gg) 1 Each Capsule 1 Each PO DAILY Alive Once Daily Women 50 Plus (Mv-Mn/Folic Acid/Vit K/Lntp681) 1 Each Tablet 1 Each PO DAILY [place] 5-325 Tablet (Acetaminophen/Hydrocodone Bitart) 1 Each Tablet 1 Tab PO PRN Q6HRS PRN Tizanidine Hcl 4 Mg Tablet 2 Tab PO TID PRN Proair Hfa Inhaler (Albuterol Sulfate) 8.5 Gm Hfa.aer.ad 1 Puff INH PRN Q6HRS PRN Montelukast Sodium Tablet (Montelukast Sodium) 10 Mg Tablet 1 Tab PO DAILY Losartan-Hctz 100-25 Mg Tab (Losartan/Hydrochlorothiazide) 1 Each Tablet 1 Tab PO DAILY Protonix (Pantoprazole Sodium) 20 Mg Tablet.dr 1 Tab PO DAILY Vitamin D3 (Cholecalciferol (Vitamin D3)) 1,000 Unit Tablet 1 Tab PO DAILY Cetirizine Hcl 10 Mg Tablet 1 Tab PO DAILY Janumet 50-1,000 Mg Tablet (Sitagliptin Phos/Metformin Hcl) 1 Each Tablet 1 Tab PO BID Vitals/I & O Vital Sign - Last 24 Hours 12/28/21 12/28/21 12/28/21 12/28/21 12:00 13:00 14:00 14:25 Temp 97.8 97.8 Pulse 101 93 90 90 Resp 17 31 18 B/P (MAP) 146/77 139/77 146/83 146/83 Pulse Ox 96 95 95 O2 Delivery Room Air Room Air Room Air 12/28/21 12/28/21 12/28/21 12/28/21 14:26 15:00 16:45 16:53 Temp 96.4 96.4 Pulse 90 108 135 Resp 13 40 B/P (MAP) 146/83 155/77 217/90 (132) Pulse Ox 96 94 O2 Delivery Room Air Room Air Room Air 12/28/21 12/28/21 12/28/21 12/28/21 17:07 17:37 18:10 18:11 Pulse 136 103 100 104 B/P (MAP) 217/90 184/90 (121) 144/82 144/82 Pulse Ox 93 O2 Delivery Room Air 12/28/21 12/28/21 12/28/21 12/28/21 19:46 20:00 21:17 21:49 Temp 96.9 96.9 Pulse 95 95 105 Resp 22 B/P (MAP) 181/90 (120) 181/90 167/86 (113) Pulse Ox 99 95 O2 Delivery Room Air Room Air Room Air 12/28/21 12/28/21 12/28/21 12/29/21 22:08 23:43 23:43 02:36 Temp 96.4 96.5 96.4 96.5 Pulse 102 102 102 117 Resp 26 B/P (MAP) 167/86 167/86 157/103 (121) Pulse Ox 96 95 O2 Delivery Room Air Room Air 12/29/21 12/29/21 12/29/21 12/29/21 03:01 03:55 05:26 06:06 Pulse 117 114 100 100 B/P (MAP) 157/103 176/96 (122) 157/93 (114) 157/93 12/29/21 12/29/21 12/29/21 12/29/21 06:07 07:00 07:35 08:18 Temp 96.5 96.5 Pulse 100 105 105 Resp 24 B/P (MAP) 157/93 157/104 (121) 157/104 Pulse Ox 89 O2 Delivery Room Air Room Air 12/29/21 10:21 Temp 96.7 96.7 Pulse 108 Resp 24 B/P (MAP) 176/101 (126) Pulse Ox 90 O2 Delivery Room Air Intake and Output 12/28/21 12/28/21 12/29/21 15:00 23:00 07:00 Intake Total 0 ml 0 ml Output Total 200 ml 600 ml Balance -200 ml 0 ml -600 ml Justicifation of Admission Dx: Justifications for Admission: Justification of Admission Dx: Yes Stroke - Ischemic: Stroke-Ischemic INDER BROWN MD Dec 29, 2021 11:17
--- NOTE | 2021-12-29 11:59 | NUR ---
SS following up with discharge planning. SS reviewed pt chart and discussed with pt RN. Pt is currently on room air. Neurology following. NPO. ST following. PT/OT following. Pt dependent with all needs at this time. GI consulted for PEG placement. Self pay. [facility] following. Pt's spouse has appointment with [facility] in [facility] today between 1245 and 1300. Probable need for Medicaid pending LTC placement. SS will continue to follow for discharge planning.
--- NOTE | 2021-12-29 12:06 | PDOC2 ---
GI CONSULT Date of Service: DATE: 12/29/21 TIME: 11:51 Reason For Consult: CVA, PEG HPI: HPI: 51 y/o female s/p CVA. No history from her. Inadequately alert to participate in swallow eval. We are asked to see to consider PEG placement. Reviewed neurology notes - has been discussed w/ who is agreeable. D/w nurse - pt gets restless sometimes, did receive Ativan this morning. INR normal on 12/25/21. Possible TPN per primary note. Nurse says Dobhoff/NG not recommended. Pantoprazole included on summary list - getting IV Pepcid and rectal ASA. S/p cholecystectomy for stones, normal IOC. PMH: PMH: per chart: HTN, asthma/COPD, DM, HLD, GERD cholecystectomy, tubal ligation, thyroid biopsy, uterine ablation, appendectomy FH: Family History: No pertinent hx ROS: unable to obtain Vitals: Vitals: Vital Signs Date Time Temp Pulse Resp B/P (MAP) Pulse Ox O2 Delivery O2 Flow Rate FiO2 12/29/21 11:31 108 176/101 12/29/21 10:21 96.7 24 90 Room Air 96.7 Labs: Labs: Laboratory Tests Test 12/28/21 14:34 12/28/21 18:08 12/28/21 23:52 12/29/21 06:16 Glucose (Fingerstick) 158 mg/dL (70-99) 197 mg/dL (70-99) 186 mg/dL (70-99) 152 mg/dL (70-99) Test 12/29/21 11:25 Glucose (Fingerstick) 160 mg/dL (70-99) Allergies: Coded Allergies: Sulfa (Sulfonamide Antibiotics) (Verified Allergy, Intermediate, Hives, 06/02/19) latex (Verified Allergy, Intermediate, Swelling, 06/02/19) lisinopril (Verified Allergy, Intermediate, Rash, 06/02/19) levofloxacin (Verified Adverse Reaction, Intermediate, 12/25/21) HEADACHES/FLU-LIKE SYMPTOMS/JOINT PAIN Medications: Current Medications Medications (Trade) Dose Ordered Sig/Fabio Route PRN Reason Start Time Stop Time Status Last Admin Dose Admin Enalaprilat (Vasotec Inj) 1.25 mg Q6HRS IVP 12/28/21 12:00 12/29/21 11:31 Imaging: Imaging: Brain MRI 12/25/21 IMPRESSION: 1. Acute infarcts at the junctions of the left greater than right thalami and posterior limbs of the internal capsules and the right caudate nucleus. 2. Suspected chronic infarcts involving bilateral basal ganglia, bilateral thalami, drea and centrum semiovale. 3. Bilateral cerebral white matter changes, likely due to chronic small vessel disease given the aforementioned findings. 4. Note is made that the exam is extremely limited due to motion. Echocardiogram 12/25/21 <Conclusion> The left ventricle is normal size. The left ventricular systolic function is normal and the ejection fraction is within normal range. LV ejection fraction of 55 to 60% There is mild concentric left ventricular hypertrophy. Bubble study is negative. Doppler and Color Flow revealed no significant aortic regurgitation. There is no significant aortic valvular stenosis. There is a maximum gradient of 11 mmHg. Doppler and Color-flow revealed trace mitral regurgitation. Doppler and Color Flow revealed trace tricuspid regurgitation with an estimated PAP of 38 mmHg. EMERGENCY ROOM TECHNICIAN 12/29/21 * Pt lying in bed;eyes flutter open then close to name. * Pt inadequately alert/aware to participate in swallow eval. * Given multiple attempts at BSE and pt's ongoing inadequate alertness for po trials, would consider pt/family goals of care and +/- long-term non-oral nutrition. IMPRESSIONS: Acute CVA w/impaired alertness negatively impacting ability to take po and communicate. PE: GEN: NAD, wearing mitten on right hand HEENT: Atraumatic LUNGS: snoring, room air HEART: mildly tachycardic ABD: quiet BS, S/ND, apparently non-tender EXTREMITY: No edema SKIN: No rashes, no jaundice NEURO/PSYCH: sleeping after Ativan - did not arouse during exam A/P: A/P: S/p CVA, impaired alertness and need for non-oral nutrition S/p cholecystectomy HTN, DM, ?MICHELET -- Will review timing for PEG w/ Dr. Mcpherson. ?PPN/TPN - defer to primary. SHANICE RAE Dec 29, 2021 12:06
[2021-12-29] MEDS: LABETALOL 20 MG/4 ML DISP.SYRIN. IVP PRN ×2 (12:52→16:10)
[2021-12-29] MEDS: ATORVASTATIN CALCIUM 40 MG TABLET. PO SCH (20:17)
[2021-12-30] VITALS (33 sets, daily range): BP systolic 96–212; BP diastolic 48–117
[2021-12-30 01:42] LABS: BASE EXCESS ABG -9 mmol/L (-3-3); HCO3 ABG 18 mmol/L (21-28); PCO2 ABG 43 mmHg (35-46); PO2 ABG 57 mmHg (75-108); SAT O2 ABG 86 % (92-99)
[2021-12-30] MEDS ORDERED: ALBUTEROL SULFATE 2.5 MG/3 ML NEBU. NEB PRN (02:00)
[2021-12-30] MEDS: hydrALAZINE 20 MG/ML VIAL. IVP PRN ×2 (02:05→18:15)
[2021-12-30 02:31] LABS: BASO # 0.1 x10^3/uL (0.0-0.2); BASO % 1 % (0-3); EOS % 0 % (0-3); HEMATOCRIT 36.4 % (36.0-47.0); LYMPH # 0.8 x10^3/uL (1.0-4.8); LYMPH % 11 % (24-48); MEAN CORPUSCULAR HEMOGLOBIN 29 pg (25-35); MEAN CORPUSCULAR HGB CONC 33 g/dL (31-37); MEAN CORPUSCULAR VOLUME 87 fL (79-100); MONO # 0.6 x10^3/uL (0.0-1.1); MONO % 8 % (0-9); NEUT # 5.4 x10^3/uL (1.8-7.7); NEUT % 80 % (31-73); PLATELET COUNT 248 x10^3/uL (140-400); RED BLOOD COUNT 4.17 x10^6/uL (3.50-5.40); RED CELL DISTRIBUTION WIDTH 14.6 % (11.5-14.5); WHITE BLOOD COUNT 6.8 x10^3/uL (4.0-11.0)
[2021-12-30 02:53] LABS: CALCIUM 8.5 mg/dL (8.5-10.1); CREATININE 1.5 mg/dL (0.6-1.0); GFR 36.3; POTASSIUM 3.1 mmol/L (3.5-5.1)
[2021-12-30 03:10] LABS: FIO2 ABG 50 (15L VM)
--- NOTE | 2021-12-30 03:42 | RAD ---
XR CHEST 1V Clinical History: Reason: decreased oxygen #652 EXT [id number] / Spl. Instructions: / History: Technique: AP view of the chest was obtained at 12/30/2021 1:35 AM. Comparison: None. Findings: The heart is normal size. The pulmonary vessels appear normal. There is patchy opacity in the left agustina ng base and there is density in the right lung base and obscuration of the diaphragm. Impression: Small to moderate pleural effusions and adjacent infiltrates right worse than left. This could be sec ondary to CHF or pneumonia. Electronically signed by: Taye Ramon III, MD (12/30/2021 3:39 AM) [facility]
--- NOTE | 2021-12-30 04:20 | NUR ---
Called to a rapid response for room 652. Patient is SOA and has a sat of 81%. Using accessory muscles to breathe. RN had placed patient on a NRB but patient is a COPD patient so was switched to 50% Ventimask. PRN Albuterol treatment was given and Sats are now in the low 90's. SBP was greater than 184 and patient was given prn Hydralazine. CXR was abnormal and patient has bilateral wheezes najma in the upper lobes. IV fluids were at 50cc/hr and were stopped due to Sodium level being 155. RN talked to Dr. Grewal and patient is to be given another breathing treatment for continued wheezing. K+ was 3.1 and 40mEq IV Potassium will be given. He is starting the patient on Zosyn and she is to remain on the unit at this time. VS now HR 87, B/P 167/83, RR 28, Sat 91%. Temp is 95.7 and patient was covered with blankets. Addendum: 12/30/21 at 0530 by BAILEY FUENTES RN Amended: Links added.
[2021-12-30] MEDS ORDERED: PIP/TAZO PER PHARMACY MC PRN (04:30)
--- NOTE | 2021-12-30 04:33 | NUR ---
O2Sat drop to 80% with 6L NC in place. Tachypneic with RR 40/minute. Lung sounds tight wheezing on inspiration with coarse wet sounds on expiration. Called Rapid Response at 01:30. Nursing Spareribs Trimmer, RT Tech, TURF FARMER and Floor RN at bedside. Placed patient on Venti Mask with 50% FiO2. Called for stat ABG, CXR, CBC, CMP, BNP and Albuterol NEBS. Chest X-Ray report CHF vs Pneumonia. BNP 2590. Gamble cath in place with 600cc clear yellow urine out in gamble bag. Reported Rapid Response to Dr Grewal at this time. Orders to start Zosyn per Pharmacy. K+ 3.1. Orders to give KCL 40MEQ IV. Na 155. Orders to stop NS infusion and to continue monitoring patient.
[2021-12-30] MEDS: PIPERACILLIN/TAZOBACTAM 3.375 GM in IV NORMAL SALINE 50ML 50 ML IV SCH ×3 (04:55→18:08)
[2021-12-30] MEDS: POTASSIUM CHLORIDE 10MEQ 100 ML IV SCH ×4 (05:38→09:25)
[2021-12-30] MEDS: INSULIN LISPRO 300 UNITS/3 ML VIAL. SQ SCH ×3 (05:48→18:06)
[2021-12-30] MEDS: NITROGLYCERIN OINT 1 GM PACKET. TP SCH ×4 (05:58→23:57)
[2021-12-30] MEDS: ENALAPRILAT 1.25 MG/ML VIAL. IVP SCH ×4 (06:00→23:57)
[2021-12-30] MEDS: HEPARIN for SUB-Q USE 5,000 UNIT/ML VIAL. SQ SCH ×3 (06:03→22:26)
[2021-12-30] MEDS ORDERED: ALBUTEROL SULFATE 2.5 MG/3 ML NEBU. NEB SCH (08:00)
[2021-12-30 08:22] LABS: BASE EXCESS ABG -14 mmol/L (-3-3); HCO3 ABG 14 mmol/L (21-28); PCO2 ABG 40 mmHg (35-46); PO2 ABG 74 mmHg (75-108); SAT O2 ABG 92 % (92-99)
[2021-12-30] MEDS ORDERED: SODIUM BICARB ADULT 8.4% 50 MEQ/50 ML DISP.SYRIN. IV ONE ×2 (08:30→10:30)
[2021-12-30] MEDS ORDERED: IV 1/2 NORMAL SALINE 1,000 ML IV SCH (08:30)
[2021-12-30] MEDS: LOSARTAN POTASSIUM 50 MG TABLET. PO SCH (09:00)
[2021-12-30] MEDS: MONTELUKAST SODIUM 10 MG TABLET. PO SCH (09:00)
[2021-12-30] MEDS: CHOLECALCIFEROL (VITAMIN D3) 1,000 UNIT TABLET PO SCH (09:00)
[2021-12-30] MEDS: NICOTINE 21MG PATCH. TD SCH (09:00)
[2021-12-30] MEDS: CETIRIZINE HCL 10 MG TABLET. PO SCH (09:00)
[2021-12-30] MEDS: FAMOTIDINE 20 MG/2 ML VIAL IVP SCH (09:00)
[2021-12-30] MEDS: hydroCHLOROthiazide 25 MG TABLET PO SCH (09:00)
--- NOTE | 2021-12-30 09:15 | NUR ---
Rapid called at 0755. Arrived, patient tachypneic RR in the 40's, using accessory muscles to breath, on NC 15L + venti mask 15l/50%. VS HR 88 BP 158/81 RR 46 O2 sat 96%. Patient unresponsive at time of arrival. Placed patient on Bipap, 18/8 rate of 20 on 70% O2. Auscultated lungs, Pt not moving much air, lung sounds wheezy in bilateral upper lobes. Initial abg 7.17, Co2 40, O2 74, Hco3 14. Dr Ford notified of patient status, orders to give 1 amp Bicarb and to transfer to ICU. En route to ICU patient able to open eyes. Patient transferred at 0915. Addendum: 12/30/21 at 1208 by LAUREN VELA RN Patient's notified of patient transfer.
--- NOTE | 2021-12-30 09:15 | NUR ---
Rapid response called on patient at 0755 due to oxygen desaturating into 70s. Patient tachypneic, using accessory muscles. Dr. Ford notified. Patient transferred to ICU at 0915.
[2021-12-30 10:16] LABS: CALCIUM 8.5 mg/dL (8.5-10.1); CREATININE 1.6 mg/dL (0.6-1.0); GFR 33.7
[2021-12-30 10:20] LABS: MAGNESIUM 1.9 mg/dL (1.8-2.4); PHOSPHORUS 4.4 mg/dL (2.6-4.7)
[2021-12-30 10:21] LABS: BASE EXCESS ABG -10 mmol/L (-3-3); HCO3 ABG 16 mmol/L (21-28); PCO2 ABG 34 mmHg (35-46); PO2 ABG 77 mmHg (75-108); SAT O2 ABG 94 % (92-99)
[2021-12-30 10:25] LABS: FIO2 ABG 70/BIPAP
--- NOTE | 2021-12-30 10:36 | PDOC ---
PULMONARY PROGRESS NOTES DATE: 12/30/21 TIME: 10:36 Subjective Patient seen and examined, full dictation to follow Vitals Vital Signs Date Time Temp Pulse Resp B/P (MAP) Pulse Ox O2 Delivery O2 Flow Rate FiO2 12/30/21 10:07 97 BiPAP/CPAP 12/30/21 07:30 15.0 12/30/21 07:27 87 40 158/61 (93) 12/30/21 04:00 95.7 95.7 Comments Patient is unable to perform review of systems secondary to current clinical state General: Lethargic Lungs: Crackles, Other (decreased base ) Extremities: Other (trace BLE and BUE ) Skin: Warm, Dry Labs Laboratory Tests Test 12/28/21 14:34 12/28/21 18:08 12/28/21 23:52 12/29/21 06:16 Glucose (Fingerstick) 158 mg/dL (70-99) 197 mg/dL (70-99) 186 mg/dL (70-99) 152 mg/dL (70-99) Test 12/29/21 11:25 12/29/21 18:03 12/29/21 23:19 12/30/21 01:30 Glucose (Fingerstick) 160 mg/dL (70-99) 162 mg/dL (70-99) 211 mg/dL (70-99) O2 Saturation 86 % (92-99) Arterial Blood pH 7.24 (7.35-7.45) Arterial Blood pCO2 at Patient Temp 43 mmHg (35-46) Arterial Blood pO2 at Patient Temp 57 mmHg (75-108) Arterial Blood HCO3 18 mmol/L (21-28) Arterial Blood Base Excess -9 mmol/L (-3-3) FiO2 50 (15l vm) Test 12/30/21 02:30 12/30/21 04:25 12/30/21 08:12 12/30/21 09:44 White Blood Count 6.8 x10^3/uL (4.0-11.0) Red Blood Count 4.17 x10^6/uL (3.50-5.40) Hemoglobin 12.0 g/dL (12.0-15.5) Hematocrit 36.4 % (36.0-47.0) Mean Corpuscular Volume 87 fL (79-100) Mean Corpuscular Hemoglobin 29 pg (25-35) Mean Corpuscular Hemoglobin Concent 33 g/dL (31-37) Red Cell Distribution Width 14.6 % (11.5-14.5) Platelet Count 248 x10^3/uL (140-400) Neutrophils (%) (Auto) 80 % (31-73) Lymphocytes (%) (Auto) 11 % (24-48) Monocytes (%) (Auto) 8 % (0-9) Eosinophils (%) (Auto) 0 % (0-3) Basophils (%) (Auto) 1 % (0-3) Neutrophils # (Auto) 5.4 x10^3/uL (1.8-7.7) Lymphocytes # (Auto) 0.8 x10^3/uL (1.0-4.8) Monocytes # (Auto) 0.6 x10^3/uL (0.0-1.1) Eosinophils # (Auto) 0.0 x10^3/uL (0.0-0.7) Basophils # (Auto) 0.1 x10^3/uL (0.0-0.2) Sodium Level 155 mmol/L (136-145) Potassium Level 3.1 mmol/L (3.5-5.1) Chloride Level 120 mmol/L (98-107) Carbon Dioxide Level 20 mmol/L (21-32) Anion Gap 15 (6-14) Blood Urea Nitrogen 22 mg/dL (7-20) Creatinine 1.5 mg/dL (0.6-1.0) Estimated GFR (Cockcroft-Gault) 36.3 Glucose Level 150 mg/dL (70-99) Calcium Level 8.5 mg/dL (8.5-10.1) JD-Lcu-G-Type Natriuretic Peptide 2590 pg/mL (0-124) Lactic Acid Level 0.8 mmol/L (0.4-2.0) O2 Saturation 92 % (92-99) 94 % (92-99) Arterial Blood pH 7.17 (7.35-7.45) 7.28 (7.35-7.45) Arterial Blood pCO2 at Patient Temp 40 mmHg (35-46) 34 mmHg (35-46) Arterial Blood pO2 at Patient Temp 74 mmHg (75-108) 77 mmHg (75-108) Arterial Blood HCO3 14 mmol/L (21-28) 16 mmol/L (21-28) Arterial Blood Base Excess -14 mmol/L (-3-3) -10 mmol/L (-3-3) FiO2 70% bipap 70/bipap Test 12/30/21 09:54 Sodium Level 152 mmol/L (136-145) Potassium Level 4.0 mmol/L (3.5-5.1) Chloride Level 118 mmol/L (98-107) Carbon Dioxide Level 17 mmol/L (21-32) Anion Gap 17 (6-14) Blood Urea Nitrogen 25 mg/dL (7-20) Creatinine 1.6 mg/dL (0.6-1.0) Estimated GFR (Cockcroft-Gault) 33.7 Glucose Level 180 mg/dL (70-99) Calcium Level 8.5 mg/dL (8.5-10.1) Phosphorus Level 4.4 mg/dL (2.6-4.7) Magnesium Level 1.9 mg/dL (1.8-2.4) Laboratory Tests Test 12/29/21 11:25 12/29/21 18:03 12/29/21 23:19 12/30/21 01:30 Glucose (Fingerstick) 160 mg/dL (70-99) 162 mg/dL (70-99) 211 mg/dL (70-99) O2 Saturation 86 % (92-99) Arterial Blood pH 7.24 (7.35-7.45) Arterial Blood pCO2 at Patient Temp 43 mmHg (35-46) Arterial Blood pO2 at Patient Temp 57 mmHg (75-108) Arterial Blood HCO3 18 mmol/L (21-28) Arterial Blood Base Excess -9 mmol/L (-3-3) FiO2 50 (15l vm) Test 12/30/21 02:30 12/30/21 04:25 12/30/21 08:12 12/30/21 09:44 White Blood Count 6.8 x10^3/uL (4.0-11.0) Red Blood Count 4.17 x10^6/uL (3.50-5.40) Hemoglobin 12.0 g/dL (12.0-15.5) Hematocrit 36.4 % (36.0-47.0) Mean Corpuscular Volume 87 fL (79-100) Mean Corpuscular Hemoglobin 29 pg (25-35) Mean Corpuscular Hemoglobin Concent 33 g/dL (31-37) Red Cell Distribution Width 14.6 % (11.5-14.5) Platelet Count 248 x10^3/uL (140-400) Neutrophils (%) (Auto) 80 % (31-73) Lymphocytes (%) (Auto) 11 % (24-48) Monocytes (%) (Auto) 8 % (0-9) Eosinophils (%) (Auto) 0 % (0-3) Basophils (%) (Auto) 1 % (0-3) Neutrophils # (Auto) 5.4 x10^3/uL (1.8-7.7) Lymphocytes # (Auto) 0.8 x10^3/uL (1.0-4.8) Monocytes # (Auto) 0.6 x10^3/uL (0.0-1.1) Eosinophils # (Auto) 0.0 x10^3/uL (0.0-0.7) Basophils # (Auto) 0.1 x10^3/uL (0.0-0.2) Sodium Level 155 mmol/L (136-145) Potassium Level 3.1 mmol/L (3.5-5.1) Chloride Level 120 mmol/L (98-107) Carbon Dioxide Level 20 mmol/L (21-32) Anion Gap 15 (6-14) Blood Urea Nitrogen 22 mg/dL (7-20) Creatinine 1.5 mg/dL (0.6-1.0) Estimated GFR (Cockcroft-Gault) 36.3 Glucose Level 150 mg/dL (70-99) Calcium Level 8.5 mg/dL (8.5-10.1) BW-Wiq-J-Type Natriuretic Peptide 2590 pg/mL (0-124) Lactic Acid Level 0.8 mmol/L (0.4-2.0) O2 Saturation 92 % (92-99) 94 % (92-99) Arterial Blood pH 7.17 (7.35-7.45) 7.28 (7.35-7.45) Arterial Blood pCO2 at Patient Temp 40 mmHg (35-46) 34 mmHg (35-46) Arterial Blood pO2 at Patient Temp 74 mmHg (75-108) 77 mmHg (75-108) Arterial Blood HCO3 14 mmol/L (21-28) 16 mmol/L (21-28) Arterial Blood Base Excess -14 mmol/L (-3-3) -10 mmol/L (-3-3) FiO2 70% bipap 70/bipap Test 12/30/21 09:54 Sodium Level 152 mmol/L (136-145) Potassium Level 4.0 mmol/L (3.5-5.1) Chloride Level 118 mmol/L (98-107) Carbon Dioxide Level 17 mmol/L (21-32) Anion Gap 17 (6-14) Blood Urea Nitrogen 25 mg/dL (7-20) Creatinine 1.6 mg/dL (0.6-1.0) Estimated GFR (Cockcroft-Gault) 33.7 Glucose Level 180 mg/dL (70-99) Calcium Level 8.5 mg/dL (8.5-10.1) Phosphorus Level 4.4 mg/dL (2.6-4.7) Magnesium Level 1.9 mg/dL (1.8-2.4) Medications Active Scripts Medications Dose Route/Sig Max Daily Dose Days Date Category Dose Instructions Montelukast Sodium 10 Mg Tablet 1 Tab PO DAILY 12/24/21 Reported Stool Softener (Docusate Sodium) 50 Mg Capsule 50 Mg PO BID 06/02/19 Reported [place] 5-325 Tablet (Acetaminophen/Hydrocodone Bitart) 1 Each Tablet 1 Tab PO Q4HRS 06/02/19 Reported LAST DOSE GIVEN: Lantus Solostar (Insulin Glargine,Hum.rec.anlog) 100 Unit/1 Ml Insuln.pen 21 Unit SQ QHS 06/02/19 Reported Culturelle (Lactobacillus Rhamnosus Gg) 1 Each Capsule 1 Each PO DAILY 06/01/19 Reported Alive Once Daily Women 50 Plus (Mv-Mn/Folic Acid/Vit K/[id number]) 1 Each Tablet 1 Each PO DAILY 06/01/19 Reported [place] 5-325 Tablet (Acetaminophen/Hydrocodone Bitart) 1 Each Tablet 1 Tab PO PRN Q6HRS PRN 06/01/19 Reported Tizanidine Hcl 4 Mg Tablet 2 Tab PO TID PRN 06/01/19 Reported Proair Hfa Inhaler (Albuterol Sulfate) 8.5 Gm Hfa.aer.ad 1 Puff INH PRN Q6HRS PRN 01/19/19 Reported Montelukast Sodium Tablet (Montelukast Sodium) 10 Mg Tablet 1 Tab PO DAILY 01/19/19 Reported Losartan-Hctz 100-25 Mg Tab (Losartan/Hydrochlorothiazide) 1 Each Tablet 1 Tab PO DAILY 01/19/19 Reported Protonix (Pantoprazole Sodium) 20 Mg Tablet.dr 1 Tab PO DAILY 01/19/19 Reported Vitamin D3 (Cholecalciferol (Vitamin D3)) 1,000 Unit Tablet 1 Tab PO DAILY 01/19/19 Reported Cetirizine Hcl 10 Mg Tablet 1 Tab PO DAILY 01/19/19 Reported Janumet 50-1,000 Mg Tablet (Sitagliptin Phos/Metformin Hcl) 1 Each Tablet 1 Tab PO BID 01/19/19 Reported Impression . Metabolic encephalopathy Acute kidney injury Early sepsis Acute hypoxic respiratory failure Severe metabolic acidosis CVA--positive MRI 12/25/2021, see MRI report COPD Thyroid disorder Plan . Discussion: Patient was a rapid response overnight 12/29/2021 for altered mental status/hypoxia, and initial work-up appeared benign, patient was placed on BiPAP, ABG revealed metabolic acidosis. Patient had ongoing metabolic acidosis and worsening mental status and hypoxia and was transferred to the intensive care unit this morning 12/30/2021 approximately 9:30 AM. PLAN 12/30/21: Continue current support with BiPAP, follow ABG/chest x-ray, repeat ABG reviewed, with improvement in acidosis Will wean FiO2 to keep sats greater than 90% We will proceed with a CT of head for new/worsening unresponsiveness, and follow neurology recommendations, patient recently diagnosed with new onset CVA with positive MRI 12/25/2021, see MRI report Metabolic acidosis/acute kidney injury, will consult nephrology for further recommendations, placed on bicarb drip, Ber[place] catheter for accurate intake and output Continue hypertensive medications for underlying hypertension Concern for early sepsis, start empiric antibiotics with vancomycin and Zosyn, follow cultures, treat accordingly and follow clinical course, consider infectious disease consultation if not improved Discern for thyroid disorder, pending cortisol, ESR, TSH and free T4, other work-up per primary care Rule out ischemic bowel/other intra-abdominal process, pending CT abdomen and pelvis DVT/GI prophylaxis CODE STATUS full Critical care time 65 minutes, reviewing diagnostics, laboratory data, patient assessment, and reviewing with the care team. VAIBHAV PARIKH MD Dec 30, 2021 10:36
--- NOTE | 2021-12-30 10:50 | PDOC ---
[employer] PROGRESS NOTE Date of Service DOS: DATE: 12/30/21 TIME: 10:44 Chief Complaint Chief Complaint Expressive aphasia unilateral weakness secondary to 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 Acute respiratory failure requiring BiPAP support Concern for early sepsis Dehydration Metabolic acidosis Acute electrolyte derangement, hypernatremia and hyperchloremia-possible dehydration History hypertension History of diabetes diabetes Start empiric IV antibiotics Pending blood cultures Appreciate pulmonology recommendations and BiPAP or vent management Appreciate nephrology recommendationsstart D5 bicarb drip CT of the head, chest, abdomen pelvis pending Pending TSH and cortisol level. -Neurology consulted. MRI with acute infarcts -Speech pathology recommending NPO for now -PT OT -Home meds resumed as indicated -We will start a sliding scale insulin -will contact and discuss with family History of Present Illness History of Present Illness 12/30/2021 Rapid response called last night for desaturations down to the 70s. Labs were obtained showing hypernatremia. Patient still unresponsive and placed on BiPAP. ABG showed 7.1 //14. Concern for aspiration, worsening of stroke, or dehydration. Nephrology and pulmonology consulted. Patient transferred to the ICU. Empiric IV antibiotics are started and blood cultures are obtained. D5 bicarb drip started. Patient's chart, labs, images were reviewed and discussed with RN 12/29/21 No acute events overnight. Patient seen examined bedside. Sleeping in bed and unable to be arousable with sternal rub or to voice. Patient unable to follow through with speech evaluation. Will need to consider TPN for nutrition. Medicaid application pending. Patient's chart, labs, images were reviewed and discussed with RN 12/28 Patient evaluated examined at bedside. She was sleeping in bed unable to get her to open her eyes even with sternal rub. Some withdrawal to pain in the right lower extremity none in right upper extremity. Unable to follow commands to see if she could hold her arm against gravity. Still having some trouble controlling blood pressure is still on Cardene drip for now. Will schedule Vasotec and try to start weaning off the Cardene drip. 12/27 Evaluated and examined at bedside. She was resting in bed not easily awoken and still cannot provide me really with any history given her aphasic state. She did have some withdrawal to pain in the right lower extremity still no movement and right upper. PT OT. Neuro following. Plan discussed bedside RN. 12/26 Evaluated and examined at bedside. Is a bit lethargic today difficulty staying awake this morning. MRI showing acute infarcts. Neurology continues to follow. Patient remains aphasic. Therapy modalities. Blood pressure control with IV until able to take oral Okay to transfer out of ICU to CVC if bed is needed Vitals/I&O Vitals/I&O: Vital Signs Date Time Temp Pulse Resp B/P (MAP) Pulse Ox O2 Delivery O2 Flow Rate FiO2 12/30/21 10:07 97 BiPAP/CPAP 12/30/21 07:30 15.0 12/30/21 07:27 87 40 158/61 (93) 12/30/21 04:00 95.7 95.7 I & O 12/29/21 12/29/21 12/30/21 15:00 23:00 07:00 Intake Total 150 ml Output Total 550 ml 750 ml Balance -550 ml -600 ml Physical Exam General: Other (does no open eyes to stimuli. cannot follow commands) Heart: Regular rate Lungs: Clear Abdomen: Normal bowel sounds, Soft, No tenderness Extremities: No edema, Normal pulses Skin: No significant lesion Labs Labs: Laboratory Tests Test 12/29/21 11:25 12/29/21 18:03 12/29/21 23:19 12/30/21 01:30 Glucose (Fingerstick) 160 mg/dL (70-99) 162 mg/dL (70-99) 211 mg/dL (70-99) O2 Saturation 86 % (92-99) Arterial Blood pH 7.24 (7.35-7.45) Arterial Blood pCO2 at Patient Temp 43 mmHg (35-46) Arterial Blood pO2 at Patient Temp 57 mmHg (75-108) Arterial Blood HCO3 18 mmol/L (21-28) Arterial Blood Base Excess -9 mmol/L (-3-3) FiO2 50 (15l vm) Test 12/30/21 02:30 12/30/21 04:25 12/30/21 08:12 12/30/21 09:44 White Blood Count 6.8 x10^3/uL (4.0-11.0) Red Blood Count 4.17 x10^6/uL (3.50-5.40) Hemoglobin 12.0 g/dL (12.0-15.5) Hematocrit 36.4 % (36.0-47.0) Mean Corpuscular Volume 87 fL (79-100) Mean Corpuscular Hemoglobin 29 pg (25-35) Mean Corpuscular Hemoglobin Concent 33 g/dL (31-37) Red Cell Distribution Width 14.6 % (11.5-14.5) Platelet Count 248 x10^3/uL (140-400) Neutrophils (%) (Auto) 80 % (31-73) Lymphocytes (%) (Auto) 11 % (24-48) Monocytes (%) (Auto) 8 % (0-9) Eosinophils (%) (Auto) 0 % (0-3) Basophils (%) (Auto) 1 % (0-3) Neutrophils # (Auto) 5.4 x10^3/uL (1.8-7.7) Lymphocytes # (Auto) 0.8 x10^3/uL (1.0-4.8) Monocytes # (Auto) 0.6 x10^3/uL (0.0-1.1) Eosinophils # (Auto) 0.0 x10^3/uL (0.0-0.7) Basophils # (Auto) 0.1 x10^3/uL (0.0-0.2) Sodium Level 155 mmol/L (136-145) Potassium Level 3.1 mmol/L (3.5-5.1) Chloride Level 120 mmol/L (98-107) Carbon Dioxide Level 20 mmol/L (21-32) Anion Gap 15 (6-14) Blood Urea Nitrogen 22 mg/dL (7-20) Creatinine 1.5 mg/dL (0.6-1.0) Estimated GFR (Cockcroft-Gault) 36.3 Glucose Level 150 mg/dL (70-99) Calcium Level 8.5 mg/dL (8.5-10.1) BF-Lkq-N-Type Natriuretic Peptide 2590 pg/mL (0-124) Lactic Acid Level 0.8 mmol/L (0.4-2.0) O2 Saturation 92 % (92-99) 94 % (92-99) Arterial Blood pH 7.17 (7.35-7.45) 7.28 (7.35-7.45) Arterial Blood pCO2 at Patient Temp 40 mmHg (35-46) 34 mmHg (35-46) Arterial Blood pO2 at Patient Temp 74 mmHg (75-108) 77 mmHg (75-108) Arterial Blood HCO3 14 mmol/L (21-28) 16 mmol/L (21-28) Arterial Blood Base Excess -14 mmol/L (-3-3) -10 mmol/L (-3-3) FiO2 70% bipap 70/bipap Test 12/30/21 09:54 Sodium Level 152 mmol/L (136-145) Potassium Level 4.0 mmol/L (3.5-5.1) Chloride Level 118 mmol/L (98-107) Carbon Dioxide Level 17 mmol/L (21-32) Anion Gap 17 (6-14) Blood Urea Nitrogen 25 mg/dL (7-20) Creatinine 1.6 mg/dL (0.6-1.0) Estimated GFR (Cockcroft-Gault) 33.7 Glucose Level 180 mg/dL (70-99) Calcium Level 8.5 mg/dL (8.5-10.1) Phosphorus Level 4.4 mg/dL (2.6-4.7) Magnesium Level 1.9 mg/dL (1.8-2.4) Comment Review of Relevant I have reviewed the following items chino (where applicable) has been applied. Medications: Current Medications Medications (Trade) Dose Ordered Sig/Fabio Route PRN Reason Start Time Stop Time Status Last Admin Dose Admin Albuterol Sulfate (Ventolin Neb Soln) 2.5 mg RTQID NEB 12/30/21 08:00 12/30/21 07:30 Albuterol Sulfate (Ventolin Neb Soln) 2.5 mg PRN Q4HRS PRN NEB SHORTNESS OF BREATH 12/30/21 02:00 12/30/21 01:55 Potassium Chloride/Water 100 ml @ 100 mls/hr Q1H IV 12/30/21 05:00 12/30/21 08:59 DC 12/30/21 09:25 Piperacillin Sod/ Tazobactam Sod 3.375 gm/Sodium Chloride 50 ml @ 100 mls/hr Q6HRS IV 12/30/21 06:00 12/30/21 04:55 Sodium Bicarbonate (Sodium Bicarb Adult 8.4% Syr) 50 meq 1X ONCE IV 12/30/21 08:30 12/30/21 08:40 DC 12/30/21 08:30 Justifications for Admission TIA Indications Persistent neurologic signs?: Yes Justification for admission: There is persistence of patient's focal neurologic signs or symptoms or there is concern for recurrence of patient's neurological signs and symptoms. Severe hypertension?: Yes Justification for admission: There is concern for patient's severe hypertension of (>180/110mmHg--please indicate patient's BP here) that has not been controlled by ED treatment. Patient needs inpatient level of care for further evaluation and management. Other Justification JALEN LEON MD Dec 30, 2021 10:50
[2021-12-30] MEDS ORDERED: VANCOMYCIN 1.5 GM in IV NORMAL SALINE 500ML BAG 500 ML IV ONE (11:00)
--- NOTE | 2021-12-30 11:05 | PDOC2 ---
CONSULT Date of Consult Date of Consult DATE: 12/30/21 TIME: 10:56 Reason for Consult Reason for Consult: MICHELET Referring Physician Referring Physician: ALYSSA Identification/Chief Complaint Chief Complaint CVA Source Source: Chart review History of Present Illness Reason for Visit: THIS IS A 51 YR OLD WITH A CVA, RIGHT SIDED WEAKNESS, APHASIA AND DYSPHAGIA. UNDERGOING GI EVAL FOR PEG AND ONGOING NEURO EVAL AND TX. SHE WAS VERY HYPERTENSIVE ON ADMIT. CR OF 1.7 ADMIT WHICH IS MOST LIKELY CKD DUE TO HTN AND DM II. SHE HAS NOT BEEN SEEING ANY PROVIDERS DUE TO LACK OF INSURANCE. TODAY SHE WAS TRANSFERRED TO THE ICU DUE TO DECREASE IN MENTATION AND WITH CONCERNS OF ASPIRATION. SHE HAS HIGH NA AND WORSENING RENAL FAILURE AND MET ACIDOSIS. THERE IS NOW CONCERNS OF SEPSIS AND OR PNEUMONIA. SHE IS ON A BIPAP AT THIS TIME. Past Medical History Cardiovascular: HTN, Hyperlipidemia Pulmonary: Asthma, COPD GI: GERD, Other (Diarrhea) Hepatobiliary: Cholelithiasis Renal/: Chronic renal insuff Endocrine: Diabetes Past Surgical History Past Surgical History: Appendectomy, Tubal Ligation, Other (Uterine ablation) Social History No ALCOHOL: none Drugs: None Lives: with Family Current Medications Current Medications Current Medications Hydralazine HCl (Apresoline Inj) 10 mg PRN Q4HRS PRN IVP ELEVATED BP, SEE COMMENTS Last administered on 12/30/21at 02:05; Start 12/24/21 at 20:15 Acetaminophen (Tylenol) 650 mg PRN Q6HRS PRN PO MILD PAIN / TEMP > 100.3'F; Start 12/24/21 at 20:15 Ondansetron HCl (Zofran) 4 mg PRN Q4HRS PRN IVP NAUSEA/VOMITING; Start 12/24/21 at 20:15 Olanzapine (ZyPREXA ZYDIS) 5 mg PRN BID PRN PO ANXIETY / AGITATION Last a dministered on 12/24/21at 22:49; Start 12/24/21 at 20:15 Bisacodyl (Dulcolax Supp) 10 mg PRN DAILY PRN [place] CONSTIPATION; Start 12/24/21 at 20:15 Nicardipine HCl 50 mg/Sodium Chloride 250 ml @ 25 mls/hr CONT PRN PRN IV PER PROTOCOL Last administered on 12/27/21at 15:42; Start 12/24/21 at 20:15 Atorvastatin Calcium (Lipitor) 80 mg QHS PO ; Start 12/24/21 at 21:00 Acetaminophen (Tylenol) 650 mg PRN Q6HRS PRN PO MILD PAIN / TEMP > 100.3'F; Start 12/24/21 at 20:15; Stop 12/24/21 at 20:17; Status DC Bisacodyl (Dulcolax Supp) 10 mg PRN DAILY PRN [place] CONSTIPATION; Start 12/24/21 at 20:15; Status UNV Famotidine (Pepcid Vial) 20 mg BID IVP Last administered on 12/26/21at 08:38; Start 12/24/21 at 21:00; Stop 12/26/21 at 08:51; Status DC Aspirin (Aspirin Rectal Supp) 300 mg PRN DAILY PRN OH IF UNABLE TO TAKE PO Last administered on 12/29/21at 10:28; Start 12/24/21 at 20:15 Acetaminophen (Tylenol Supp) 650 mg PRN Q6HRS PRN OH MILD PAIN / TEMP > 100.3'F; Start 12/24/21 at 20:15 Insulin Human Lispro (HumaLOG) 0-9 UNITS Q6HRS SQ Last administered on 12/29/21at 23:42; Start 12/25/21 at 00:00 Dextrose (Dextrose 50%-Water Syringe) 12.5 gm PRN Q15MIN PRN IV SEE COMMENTS; Start 12/24/21 at 20:15 Dextrose (Iv Dextrose 5%) 250 ml PRN Q15MIN PRN IV SEE COMMENTS; Start 12/24/21 at 20:15 Potassium Chloride/Water 100 ml @ 100 mls/hr Q1H IV ; Start 12/25/21 at 09:00; Stop 12/25/21 at 10:59; Status UNV Potassium Chloride/Water 100 ml @ 100 mls/hr Q1H IV Last administered on 12/25/21at 13:16; Start 12/25/21 at 09:00; Stop 12/25/21 at 12:59; Status DC Cetirizine HCl (ZyrTEC) 10 mg DAILY PO ; Start 12/25/21 at 10:00 Vitamin D (Vitamin D3) 1,000 unit DAILY PO ; Start 12/25/21 at 10:00 Montelukast Sodium (Singulair) 10 mg DAILY PO ; Start 12/25/21 at 10:00 Losartan Potassium (Cozaar) 100 mg DAILY PO ; Start 12/25/21 at 10:00 Pantoprazole Sodium (Protonix) 40 mg DAILYAC PO ; Start 12/25/21 at 11:30; Stop 12/29/21 at 12:07; Status DC Lorazepam (Ativan Inj) 2 mg PRN Q4HRS PRN IVP ANXIETY / AGITATION Last administered on 12/29/21at 20:16; Start 12/25/21 at 10:00 Hydrochlorothiazide (Hydrodiuril) 25 mg DAILY PO ; Start 12/25/21 at 10:00 Sodium Chloride 1,000 ml @ 50 mls/hr Q20H IV Last administered on 12/29/21at 08:14; Start 12/25/21 at 17:00; Stop 12/30/21 at 10:35; Status DC Famotidine (Pepcid Vial) 20 mg DAILY IVP Last administered on 12/29/21at 08:16; Start 12/27/21 at 09:00 Labetalol HCl (Normodyne Iv Push) 10 mg PRN Q2HR PRN IVP HYPERTENSION (1ST) Last administered on 12/26/21at 13:20; Start 12/26/21 at 13:15 Heparin Sodium (Porcine) (Heparin Sodium) 5,000 unit Q8HRS SQ Last administered on 12/30/21at 06:03; Start 12/26/21 at 14:00 Labetalol HCl (Normodyne Iv Push) 20 mg PRN Q2HR PRN IVP HYPERTENSION (1ST) Last administered on 12/29/21at 16:10; Start 12/26/21 at 13:30 Clonidine HCl (Catapres Tts-2) 1 patch WEEKLY TD Last administered on 12/26/21at 15:13; Start 12/26/21 at 15:00 Nicotine (Nicoderm Cq 21mg) 1 patch DAILY TD Last administered on 12/29/21at 08:16; Start 12/26/21 at 15:00 Nitroglycerin (Nitro-Bid Oint) 1 inch Q6HRS TP Last administered on 12/30/21at 05:58; Start 12/26/21 at 18:00 Enalaprilat (Vasotec Inj) 1.25 mg Q6HRS IVP Last administered on 12/30/21at 06:00; Start 12/28/21 at 12:00 Cefazolin Sodium (Ancef) 1 gm 1X ONCE IVP ; Start 01/01/22 at 13:30; Stop 01/01/22 at 13:31 Albuterol Sulfate (Ventolin Neb Soln) 2.5 mg RTQID NEB Last administered on 12/30/21at 07:30; Start 12/30/21 at 08:00 Albuterol Sulfate (Ventolin Neb Soln) 2.5 mg PRN Q4HRS PRN NEB SHORTNESS OF BREATH Last administered on 12/30/21at 01:55; Start 12/30/21 at 02:00 Piperacillin Sod/ Tazobactam Sod (Zosyn Per Pharmacy) 1 each PRN DAILY PRN MC SEE COMMENTS; Start 12/30/21 at 04:30 Potassium Chloride/Water 100 ml @ 100 mls/hr Q1H IV Last administered on 12/30/21at 09:25; Start 12/30/21 at 05:00; Stop 12/30/21 at 08:59; Status DC Piperacillin Sod/ Tazobactam Sod 3.375 gm/Sodium Chloride 50 ml @ 100 mls/hr Q6HRS IV Last administered on 12/30/21at 04:55; Start 12/30/21 at 06:00 Sodium Chloride 1,000 ml @ 75 mls/hr [id number] IV ; Start 12/30/21 at 08:30 Sodium Bicarbonate (Sodium Bicarb Adult 8.4% Syr) 50 meq 1X ONCE IV Last administered on 12/30/21at 08:30; Start 12/30/21 at 08:30; Stop 12/30/21 at 08:40; Status DC Albuterol/ Ipratropium (Duoneb) 3 ml RTQID NEB ; Start 12/30/21 at 12:00 Vancomycin HCl (Vanco Per Pharmacy) 1 each PRN DAILY PRN MC SEE COMMENTS; Start 12/30/21 at 10:30 Sodium Bicarbonate (Sodium Bicarb Adult 8.4% Syr) 50 meq 1X ONCE IV ; Start 12/30/21 at 10:30; Stop 12/30/21 at 10:34; Status DC Vancomycin HCl 1.5 gm/Sodium Chloride 500 ml @ 250 mls/hr 1X ONCE IV Last administered on 12/30/21at 10:51; Start 12/30/21 at 11:00; Stop 12/30/21 at 12:59 Sodium Bicarbonate 150 meq/Dextrose 1,150 ml @ 75 mls/hr [id number] IV ; Start 12/30/21 at 11:00 Aspirin (Aspirin Rectal Supp) 300 mg DAILY [place] ; Start 12/30/21 at 11:00 Active Scripts Active Reported Montelukast Sodium 10 Mg Tablet 1 Tab PO DAILY Stool Softener (Docusate Sodium) 50 Mg Capsule 50 Mg PO BID [place] 5-325 Tablet (Acetaminophen/Hydrocodone Bitart) 1 Each Tablet 1 Tab PO Q4HRS LAST DOSE GIVEN: Lantus Solostar (Insulin Glargine,Hum.rec.anlog) 100 Unit/1 Ml Insuln.pen 21 Unit SQ QHS Culturelle (Lactobacillus Rhamnosus Gg) 1 Each Capsule 1 Each PO DAILY Alive Once Daily Women 50 Plus (Mv-Mn/Folic Acid/Vit K/Amok527) 1 Each Tablet 1 Each PO DAILY [place] 5-325 Tablet (Acetaminophen/Hydrocodone Bitart) 1 Each Tablet 1 Tab PO PRN Q6HRS PRN Tizanidine Hcl 4 Mg Tablet 2 Tab PO TID PRN Proair Hfa Inhaler (Albuterol Sulfate) 8.5 Gm Hfa.aer.ad 1 Puff INH PRN Q6HRS PRN Montelukast Sodium Tablet (Montelukast Sodium) 10 Mg Tablet 1 Tab PO DAILY Losartan-Hctz 100-25 Mg Tab (Losartan/Hydrochlorothiazide) 1 Each Tablet 1 Tab PO DAILY Protonix (Pantoprazole Sodium) 20 Mg Tablet.dr 1 Tab PO DAILY Vitamin D3 (Cholecalciferol (Vitamin D3)) 1,000 Unit Tablet 1 Tab PO DAILY Cetirizine Hcl 10 Mg Tablet 1 Tab PO DAILY Janumet 50-1,000 Mg Tablet (Sitagliptin Phos/Metformin Hcl) 1 Each Tablet 1 Tab PO BID Allergies Allergies: Coded Allergies: Sulfa (Sulfonamide Antibiotics) (Verified Allergy, Intermediate, Hives, 06/02/19) latex (Verified Allergy, Intermediate, Swelling, 06/02/19) lisinopril (Verified Allergy, Intermediate, Rash, 06/02/19) levofloxacin (Verified Adverse Reaction, Intermediate, 12/25/21) HEADACHES/FLU-LIKE SYMPTOMS/JOINT PAIN ROS Review of System UNABLE TO OBTAIN Physical Exam General: mild distress HEENT: Atraumatic, Other (BIPAP IN PLACE) Lungs: Other (DECREASED AT BASES) Heart: Regular rate Abdomen: Normal bowel sounds Extremities: No clubbing Skin: No breakdown Neuro: Other (APHASIA, CONFUSED) Psych/Mental Status: Other (CONFUSED, UNABLE TO ASSESS) MUSCULOSKELETAL: No joint tenderness, No deformity Vitals VITALS Vital Signs Date Time Temp Pulse Resp B/P (MAP) Pulse Ox O2 Delivery O2 Flow Rate FiO2 12/30/21 10:07 97 BiPAP/CPAP 12/30/21 07:30 15.0 12/30/21 07:27 87 40 158/61 (93) 12/30/21 04:00 95.7 95.7 Labs Labs Laboratory Tests Test 12/28/21 14:34 12/28/21 18:08 12/28/21 23:52 12/29/21 06:16 Glucose (Fingerstick) 158 mg/dL (70-99) 197 mg/dL (70-99) 186 mg/dL (70-99) 152 mg/dL (70-99) Test 12/29/21 11:25 12/29/21 18:03 12/29/21 23:19 12/30/21 01:30 Glucose (Fingerstick) 160 mg/dL (70-99) 162 mg/dL (70-99) 211 mg/dL (70-99) O2 Saturation 86 % (92-99) Arterial Blood pH 7.24 (7.35-7.45) Arterial Blood pCO2 at Patient Temp 43 mmHg (35-46) Arterial Blood pO2 at Patient Temp 57 mmHg (75-108) Arterial Blood HCO3 18 mmol/L (21-28) Arterial Blood Base Excess -9 mmol/L (-3-3) FiO2 50 (15l vm) Test 12/30/21 02:30 12/30/21 04:25 12/30/21 08:12 12/30/21 09:44 White Blood Count 6.8 x10^3/uL (4.0-11.0) Red Blood Count 4.17 x10^6/uL (3.50-5.40) Hemoglobin 12.0 g/dL (12.0-15.5) Hematocrit 36.4 % (36.0-47.0) Mean Corpuscular Volume 87 fL (79-100) Mean Corpuscular Hemoglobin 29 pg (25-35) Mean Corpuscular Hemoglobin Concent 33 g/dL (31-37) Red Cell Distribution Width 14.6 % (11.5-14.5) Platelet Count 248 x10^3/uL (140-400) Neutrophils (%) (Auto) 80 % (31-73) Lymphocytes (%) (Auto) 11 % (24-48) Monocytes (%) (Auto) 8 % (0-9) Eosinophils (%) (Auto) 0 % (0-3) Basophils (%) (Auto) 1 % (0-3) Neutrophils # (Auto) 5.4 x10^3/uL (1.8-7.7) Lymphocytes # (Auto) 0.8 x10^3/uL (1.0-4.8) Monocytes # (Auto) 0.6 x10^3/uL (0.0-1.1) Eosinophils # (Auto) 0.0 x10^3/uL (0.0-0.7) Basophils # (Auto) 0.1 x10^3/uL (0.0-0.2) Sodium Level 155 mmol/L (136-145) Potassium Level 3.1 mmol/L (3.5-5.1) Chloride Level 120 mmol/L (98-107) Carbon Dioxide Level 20 mmol/L (21-32) Anion Gap 15 (6-14) Blood Urea Nitrogen 22 mg/dL (7-20) Creatinine 1.5 mg/dL (0.6-1.0) Estimated GFR (Cockcroft-Gault) 36.3 Glucose Level 150 mg/dL (70-99) Calcium Level 8.5 mg/dL (8.5-10.1) [place]-Type Natriuretic Peptide 2590 pg/mL (0-124) Lactic Acid Level 0.8 mmol/L (0.4-2.0) O2 Saturation 92 % (92-99) 94 % (92-99) Arterial Blood pH 7.17 (7.35-7.45) 7.28 (7.35-7.45) Arterial Blood pCO2 at Patient Temp 40 mmHg (35-46) 34 mmHg (35-46) Arterial Blood pO2 at Patient Temp 74 mmHg (75-108) 77 mmHg (75-108) Arterial Blood HCO3 14 mmol/L (21-28) 16 mmol/L (21-28) Arterial Blood Base Excess -14 mmol/L (-3-3) -10 mmol/L (-3-3) FiO2 70% bipap 70/bipap Test 12/30/21 09:54 Sodium Level 152 mmol/L (136-145) Potassium Level 4.0 mmol/L (3.5-5.1) Chloride Level 118 mmol/L (98-107) Carbon Dioxide Level 17 mmol/L (21-32) Anion Gap 17 (6-14) Blood Urea Nitrogen 25 mg/dL (7-20) Creatinine 1.6 mg/dL (0.6-1.0) Estimated GFR (Cockcroft-Gault) 33.7 Glucose Level 180 mg/dL (70-99) Calcium Level 8.5 mg/dL (8.5-10.1) Phosphorus Level 4.4 mg/dL (2.6-4.7) Magnesium Level 1.9 mg/dL (1.8-2.4) Laboratory Tests Test 12/29/21 11:25 12/29/21 18:03 12/29/21 23:19 12/30/21 01:30 Glucose (Fingerstick) 160 mg/dL (70-99) 162 mg/dL (70-99) 211 mg/dL (70-99) O2 Saturation 86 % (92-99) Arterial Blood pH 7.24 (7.35-7.45) Arterial Blood pCO2 at Patient Temp 43 mmHg (35-46) Arterial Blood pO2 at Patient Temp 57 mmHg (75-108) Arterial Blood HCO3 18 mmol/L (21-28) Arterial Blood Base Excess -9 mmol/L (-3-3) FiO2 50 (15l vm) Test 12/30/21 02:30 12/30/21 04:25 12/30/21 08:12 12/30/21 09:44 White Blood Count 6.8 x10^3/uL (4.0-11.0) Red Blood Count 4.17 x10^6/uL (3.50-5.40) Hemoglobin 12.0 g/dL (12.0-15.5) Hematocrit 36.4 % (36.0-47.0) Mean Corpuscular Volume 87 fL (79-100) Mean Corpuscular Hemoglobin 29 pg (25-35) Mean Corpuscular Hemoglobin Concent 33 g/dL (31-37) Red Cell Distribution Width 14.6 % (11.5-14.5) Platelet Count 248 x10^3/uL (140-400) Neutrophils (%) (Auto) 80 % (31-73) Lymphocytes (%) (Auto) 11 % (24-48) Monocytes (%) (Auto) 8 % (0-9) Eosinophils (%) (Auto) 0 % (0-3) Basophils (%) (Auto) 1 % (0-3) Neutrophils # (Auto) 5.4 x10^3/uL (1.8-7.7) Lymphocytes # (Auto) 0.8 x10^3/uL (1.0-4.8) Monocytes # (Auto) 0.6 x10^3/uL (0.0-1.1) Eosinophils # (Auto) 0.0 x10^3/uL (0.0-0.7) Basophils # (Auto) 0.1 x10^3/uL (0.0-0.2) Sodium Level 155 mmol/L (136-145) Potassium Level 3.1 mmol/L (3.5-5.1) Chloride Level 120 mmol/L (98-107) Carbon Dioxide Level 20 mmol/L (21-32) Anion Gap 15 (6-14) Blood Urea Nitrogen 22 mg/dL (7-20) Creatinine 1.5 mg/dL (0.6-1.0) Estimated GFR (Cockcroft-Gault) 36.3 Glucose Level 150 mg/dL (70-99) Calcium Level 8.5 mg/dL (8.5-10.1) SD-Zek-Y-Type Natriuretic Peptide 2590 pg/mL (0-124) Lactic Acid Level 0.8 mmol/L (0.4-2.0) O2 Saturation 92 % (92-99) 94 % (92-99) Arterial Blood pH 7.17 (7.35-7.45) 7.28 (7.35-7.45) Arterial Blood pCO2 at Patient Temp 40 mmHg (35-46) 34 mmHg (35-46) Arterial Blood pO2 at Patient Temp 74 mmHg (75-108) 77 mmHg (75-108) Arterial Blood HCO3 14 mmol/L (21-28) 16 mmol/L (21-28) Arterial Blood Base Excess -14 mmol/L (-3-3) -10 mmol/L (-3-3) FiO2 70% bipap 70/bipap Test 12/30/21 09:54 Sodium Level 152 mmol/L (136-145) Potassium Level 4.0 mmol/L (3.5-5.1) Chloride Level 118 mmol/L (98-107) Carbon Dioxide Level 17 mmol/L (21-32) Anion Gap 17 (6-14) Blood Urea Nitrogen 25 mg/dL (7-20) Creatinine 1.6 mg/dL (0.6-1.0) Estimated GFR (Cockcroft-Gault) 33.7 Glucose Level 180 mg/dL (70-99) Calcium Level 8.5 mg/dL (8.5-10.1) Phosphorus Level 4.4 mg/dL (2.6-4.7) Magnesium Level 1.9 mg/dL (1.8-2.4) Assessment/Plan Assessment/Plan IMP CVA HTN-UNCONTROLLED DM II HYPERNATREMIA MET ACIDOSIS MICHELET VS CKD STAGE 3 DEHYDRATION ACUTE RESP FAILURE PROB ASPIRATION PNEUMONIA PLAN HCO3 HYDRATION BIPAP ANTIBIOTICS CHECK UA CONTROL BG AND HTN WILL FOLLOW MYNOR CARVAJAL MD Dec 30, 2021 11:05
[2021-12-30] MEDS: ASPIRIN RECTAL 300 MG SUPP. PR SCH (11:09)
[2021-12-30 11:17] LABS: FREE T4 0.73 ng/dL (0.76-1.46); THYROID STIM HORMONE (TSH) 1.23 uIU/mL (0.358-3.74)
[2021-12-30] MEDS: IPRATRPIUM/ALBUTEROL 0.5/2.5MG 3 ML NEBU. NEB SCH ×3 (11:20→20:00)
[2021-12-30] MEDS: SODIUM BICARBONATE VIAL 150 MEQ in IV DEXTROSE 5% 1,000 ML IV SCH (11:57)
[2021-12-30] MEDS: VANCOMYCIN PER PHARMACY MC PRN (12:57)
--- NOTE | 2021-12-30 13:17 | RAD ---
CT HEAD/BRAIN WO Clinical indications: Altered mental status. COMPARISON: December 24, 2021 performed at [facility]. MRI study of the brain dated December 25, 2021 performed at [facility]. Technique: Noncontrast axial cross sectional scanning of the head was performed. PQRS compliance Statement One or more of the following individualized dose reduction techniques were utilized for this study: 1. Automated exposure control 2. Adjustment of the mA and/or kV according to patient size 3. Use of iterative reconstruction technique Findings: No acute intracranial hemorrhage or midline shift or mass-effect or hydrocephalus or extra- axial fluid collection is seen. Increasing focal hypodensity is seen involving the posterior limb of the left internal capsule and smaller area involving the posterior limb of the right internal capsule and the head of the caudate nucleus on the right side corresponding to the acute infarcts seen on th e MRI study of the brain. No skull fracture or pneumocephalus is seen. No opacification of the mastoi d sinuses or the middle ear cavities or the paranasal sinuses is seen. IMPRESSION: No acute intracranial hemorrhage is seen. Increase in edema of bilateral acute infarcts a s discussed above. No midline shift or mass effect is seen. Electronically signed by: Damian Albert MD (12/30/2021 1:15 PM) [id number]
--- NOTE | 2021-12-30 13:23 | RAD ---
EXAM: CT Chest, Abdomen and Pelvis without IV contrast CLINICAL HISTORY: Reason: hypoxia, r/o ischemic bowel / Spl. Instructions: / History: COMPARISON: None. TECHNIQUE: Helical CT of the chest, abdomen and pelvis was performed following the administration of intravenous contrast. Axial, coronal and sagittal reformatted images were generated. ---PQRS compliance statement - One or more of the following individualized dose reduction techniques were utilized for this study: 1. Automated exposure control 2. Adjustment of the mA and/or kV according to patient size 3. Use of iterative reconstruction technique--- FINDINGS: Exam is degraded secondary to patient motion. CHEST: LUNGS/PLEURA: Scattered and confluent diffuse bilateral groundglass and consolidative opacities most pronounced in bilateral lower lobes with near confluent consolidation in the right lower lobe with as sociated air bronchograms. There is a small right and trace left pleural effusions with associated pa ssive atelectasis. The central airway appears patent. There is no pneumothorax. MEDIASTINUM: Lack of IV contrast degrades evaluation for mediastinal and hilar adenopathy. The thora cic aorta and pulmonary arteries are normal in caliber. The heart is normal in size. No pericardial e ffusion. Mild calcified coronary atherosclerosis. The visualized thyroid and the esophagus are unrema rkable. AXILLA/SOFT TISSUE: No supraclavicular or axillary adenopathy. Regional soft tissues are within susana l limits. Abdomen and Pelvis: Liver and biliary system: No focal liver lesion. Gallbladder is absent. No pneumobilia or portal salazar ous gas. Spleen: Unremarkable with small inferior splenule. Pancreas: Grossly unremarkable. Adrenal glands: Unremarkable Kidneys: Kidneys are symmetric in size with bilateral calcific perinephric stranding. Hypoattenuating area in the interpolar region of the right kidney with focal urothelial thickening of the right kade l collecting system. No hydroureteronephrosis of the left kidney or obstructing nephrolithiasis. Lymph nodes/retroperitoneum: No pathologically enlarged abdominal or pelvic adenopathy. No retroperit rosario masses. Vessels: Mild to moderate aortobiiliac atherosclerotic disease with no evidence of aneurysmal dilatio n. Bowel/Peritoneal cavity: The lack of oral contrast degrades evaluation of wall thickening. Bowel appe ars normal in course and caliber with no evidence of obstruction. There is retained hyperattenuating material in the distal large bowel. Majority of the bowel is decompressed accentuating the wall thick ness, also there is a extensive amount of motion artifact degrading evaluation. No free intra-abdomin al air. There is a small amount of intra-abdominal and pelvic fluid. There is no definite loculated f luid collection. Appendix is not well-visualized. Abdominal wall: Predominantly mild dependent anasarca. Bladder: Decompressed precluding complete evaluation. Reproductive: Normal-appearing uterus is present. No suspicious adnexal masses. Bones: No acute or suspicious osseous of modalities. IMPRESSION: Exam is degraded secondary to patient motion. CHEST: 1. Scattered and confluent groundglass and consolidative opacities with associated air bronchograms, most consistent with multifocal pneumonia. Follow-up to resolution to exclude underlying malignancy. 2. Small right and trace left pleural effusions with associated passive atelectasis. ABDOMEN/PELVIS: 1. No imaging findings to suggest bowel ischemia. Recommend correlation with serum lactate levels. 2. Nonspecific hypoattenuation in the interpolar region of the right kidney with questionable right c ollecting system urothelial thickening correlation with urinalysis to exclude urinary tract infection /pyelonephritis. 3. Nonspecific small abdominal and pelvic fluid may be secondary to fluid overload. 4. Other chronic/incidental findings, as above. Electronically signed by: Salvatore Navarrete DO (12/30/2021 1:20 PM) [facility]
--- NOTE | 2021-12-30 13:53 | NUR ---
Pharmacy Vancomycin Dosing Note S:Consulted to monitor and dose vancomycin started 12/30/21. O:TAI SIDDIQI is a 51 year old F with Sepsis Pneumonia . Height: 5 feet, 7 inches Weight: 63.9 kg [place] Body Weight: 61.60 Adjusted Body Weight: 62.52 Dosing Weight: Actual Other Antibiotics: CEFEPIME LABS: Last BUN: Last Creatinine: 1.6 Creatinine Clearance: 40 mL/min Last WBC: 6.8 Last Procalcitonin: Tmax (past 24 hours): Microbiology: I/O: Drug Levels: Last level: on at Last dose given 12/30/21 at 1100 Vancomycin Dosing: Loading Dose: 1500 mg x1 Dosing Weight: Actual Target Trough: 15-20 A: Based on: WEIGHT AND RENAL FUNCTION, VANCOMYCIN 1.5GM IV GIVEN, P: 1. Begin Vancomycin 1000 mg IV q24h 2. Follow up Trough level on 01/01/22 at 1030 3. Pharmacy will continue to monitor, follow and adjust therapy as needed. JOELLE MORA [facility], 12/30/21 [id number]
[2021-12-30] MEDS: LABETALOL 20 MG/4 ML DISP.SYRIN. IVP PRN ×2 (15:22→17:45)
--- NOTE | 2021-12-30 17:44 | PDOC4 ---
PROCEDURE Procedure Arterial Line Placement Hemodynamic Monitoring After properly positioning the patient's wrist in the standard fashion, the site was prepped and draped in a sterile fashion. Lidocaine was administered thmoas bcutaneously as a local infiltration and given time to take effect. Next, the radial artery was entered, noting bright red, pulsatile flow. A guidewire was easily inserted, the needle removed, and the catheter was then placed using the Seldinger technique. The guidewire was removed, with good flow present. The catheter was then connected to the transducer with a good waveform noted. The catheter was secured with suture and an occlusive dressing was placed after properly cleaning and prepping the site. JUDY PATINO MD Dec 30, 2021 17:44
[2021-12-30] MEDS ORDERED: FUROSEMIDE 40 MG/4 ML VIAL. IVP ONE ×2 (17:45→19:30)
--- NOTE | 2021-12-30 17:49 | NUR ---
1730- Patient cuff pressure from one arm to the next was [address] Caicedo in the room, placed arterial line, SBP >300. PRN dose labetalol given. SBP decreased to <160. CT of head ordered by Dr Caicedo. Patient currently on Bipap, using accessory muscles to breath, and is non responsive. Pulmonary [employer] notified of respiratory status, orders to intubate to protect airway if that is the family's wishes given her condition d/t previous CVA. had long discussed with the family. Family states they want everything done at this time.
[2021-12-30 17:54] LABS: BASE EXCESS ABG -6 mmol/L (-3-3); HCO3 ABG 20 mmol/L (21-28); PCO2 ABG 41 mmHg (35-46); PO2 ABG 74 mmHg (75-108); SAT O2 ABG 93 % (92-99)
[2021-12-30 17:56] LABS: FIO2 ABG 40/BIPAP
[2021-12-30 18:38] LABS: CALCIUM 8.1 mg/dL (8.5-10.1); CREATININE 1.9 mg/dL (0.6-1.0); GFR 27.7; POTASSIUM 3.6 mmol/L (3.5-5.1)
--- NOTE | 2021-12-30 18:45 | PDOC ---
PROGRESS NOTES DOS: DATE: 12/30/21 TIME: 18:36 Plan 51-year-old woman with multiple medical problems with CVA, Small vessel disease, negative CTA and echocardiogram: acute infarcts at the junctions of the left greater than right thalami and posterior limbs of the internal capsules and the right caudate nucleus, chronic infarcts involving bilateral basal ganglia, bilateral thalami, drea and centrum semiovale, bilateral cerebral white matter changes Doubt embolic phenomenon in these brain locations Hypertension, hyperlipidemia, was not taking medication due to insurance reasons Rectal aspirin until cleared by speech, has been too lethargic to participate with speech therapy High-dose statin when safe to take orally They are agreeable to PEG placement Repeat Patient had areas of infarcts noted in left internal capsule, posterior l imb of right internal capsule, no midline shift or mass-effect noted. Continue medical management Subjective Patient had a rapid response desaturation in 70s. Patient was moved to ICU. No new clinical seizures. Objective Vital Signs Date Time Temp Pulse Resp B/P (MAP) Pulse Ox O2 Delivery O2 Flow Rate FiO2 12/30/21 18:15 92 210/99 12/30/21 17:42 96 BiPAP/CPAP 12/30/21 16:00 97.8 30 97.8 12/30/21 08:00 15.0 Intake and Output 12/30/21 07:08 Intake Total 150 ml Output Total 1300 ml Balance -1150 ml IV Total 150 ml Output Urine Total 1300 ml PHYSICAL EXAM Lethargic, nonverbal, opens eyes no menigeal signs PERRL. CN: Right central facial weakness. Muscle tone: normal. Muscle strength: 3/5 right hemiparesis more on right side compared to left DTR: 1-2 Plantar reflex: Flexor Gait: not examined in bed. Sensory exam: no abnormal findings. No cerebellar signs elicited. Review of Relevant I have reviewed the following items chino (where applicable) has been applied. Labs Laboratory Tests Test 12/28/21 23:52 12/29/21 06:16 12/29/21 11:25 12/29/21 18:03 Glucose (Fingerstick) 186 mg/dL (70-99) 152 mg/dL (70-99) 160 mg/dL (70-99) 162 mg/dL (70-99) Test 12/29/21 23:19 12/30/21 01:30 12/30/21 02:30 12/30/21 04:25 Glucose (Fingerstick) 211 mg/dL (70-99) O2 Saturation 86 % (92-99) Arterial Blood pH 7.24 (7.35-7.45) Arterial Blood pCO2 at Patient Temp 43 mmHg (35-46) Arterial Blood pO2 at Patient Temp 57 mmHg (75-108) Arterial Blood HCO3 18 mmol/L (21-28) Arterial Blood Base Excess -9 mmol/L (-3-3) FiO2 50 (15l vm) White Blood Count 6.8 x10^3/uL (4.0-11.0) Red Blood Count 4.17 x10^6/uL (3.50-5.40) Hemoglobin 12.0 g/dL (12.0-15.5) Hematocrit 36.4 % (36.0-47.0) Mean Corpuscular Volume 87 fL (79-100) Mean Corpuscular Hemoglobin 29 pg (25-35) Mean Corpuscular Hemoglobin Concent 33 g/dL (31-37) Red Cell Distribution Width 14.6 % (11.5-14.5) Platelet Count 248 x10^3/uL (140-400) Neutrophils (%) (Auto) 80 % (31-73) Lymphocytes (%) (Auto) 11 % (24-48) Monocytes (%) (Auto) 8 % (0-9) Eosinophils (%) (Auto) 0 % (0-3) Basophils (%) (Auto) 1 % (0-3) Neutrophils # (Auto) 5.4 x10^3/uL (1.8-7.7) Lymphocytes # (Auto) 0.8 x10^3/uL (1.0-4.8) Monocytes # (Auto) 0.6 x10^3/uL (0.0-1.1) Eosinophils # (Auto) 0.0 x10^3/uL (0.0-0.7) Basophils # (Auto) 0.1 x10^3/uL (0.0-0.2) Sodium Level 155 mmol/L (136-145) Potassium Level 3.1 mmol/L (3.5-5.1) Chloride Level 120 mmol/L (98-107) Carbon Dioxide Level 20 mmol/L (21-32) Anion Gap 15 (6-14) Blood Urea Nitrogen 22 mg/dL (7-20) Creatinine 1.5 mg/dL (0.6-1.0) Estimated GFR (Cockcroft-Gault) 36.3 Glucose Level 150 mg/dL (70-99) Calcium Level 8.5 mg/dL (8.5-10.1) ZA-Lfq-G-Type Natriuretic Peptide 2590 pg/mL (0-124) Lactic Acid Level 0.8 mmol/L (0.4-2.0) Test 12/30/21 08:12 12/30/21 09:44 12/30/21 09:54 12/30/21 12:15 O2 Saturation 92 % (92-99) 94 % (92-99) Arterial Blood pH 7.17 (7.35-7.45) 7.28 (7.35-7.45) Arterial Blood pCO2 at Patient Temp 40 mmHg (35-46) 34 mmHg (35-46) Arterial Blood pO2 at Patient Temp 74 mmHg (75-108) 77 mmHg (75-108) Arterial Blood HCO3 14 mmol/L (21-28) 16 mmol/L (21-28) Arterial Blood Base Excess -14 mmol/L (-3-3) -10 mmol/L (-3-3) FiO2 70% bipap 70/bipap Sodium Level 152 mmol/L (136-145) Potassium Level 4.0 mmol/L (3.5-5.1) Chloride Level 118 mmol/L (98-107) Carbon Dioxide Level 17 mmol/L (21-32) Anion Gap 17 (6-14) Blood Urea Nitrogen 25 mg/dL (7-20) Creatinine 1.6 mg/dL (0.6-1.0) Estimated GFR (Cockcroft-Gault) 33.7 Glucose Level 180 mg/dL (70-99) Calcium Level 8.5 mg/dL (8.5-10.1) Phosphorus Level 4.4 mg/dL (2.6-4.7) Magnesium Level 1.9 mg/dL (1.8-2.4) Thyroid Stimulating Hormone (TSH) 1.230 uIU/mL (0.358-3.74) Free Thyroxine 0.73 ng/dL (0.76-1.46) Glucose (Fingerstick) 169 mg/dL (70-99) Test 12/30/21 16:54 12/30/21 17:51 12/30/21 18:15 Glucose (Fingerstick) 230 mg/dL (70-99) O2 Saturation 93 % (92-99) Arterial Blood pH 7.30 (7.35-7.45) Arterial Blood pCO2 at Patient Temp 41 mmHg (35-46) Arterial Blood pO2 at Patient Temp 74 mmHg (75-108) Arterial Blood HCO3 20 mmol/L (21-28) Arterial Blood Base Excess -6 mmol/L (-3-3) FiO2 40/bipap Sodium Level 157 mmol/L (136-145) Potassium Level 3.6 mmol/L (3.5-5.1) Chloride Level 118 mmol/L (98-107) Carbon Dioxide Level 22 mmol/L (21-32) Anion Gap 17 (6-14) Blood Urea Nitrogen 28 mg/dL (7-20) Creatinine 1.9 mg/dL (0.6-1.0) Estimated GFR (Cockcroft-Gault) 27.7 Glucose Level 259 mg/dL (70-99) Calcium Level 8.1 mg/dL (8.5-10.1) Laboratory Tests Test 12/29/21 23:19 12/30/21 01:30 12/30/21 02:30 12/30/21 04:25 Glucose (Fingerstick) 211 mg/dL (70-99) O2 Saturation 86 % (92-99) Arterial Blood pH 7.24 (7.35-7.45) Arterial Blood pCO2 at Patient Temp 43 mmHg (35-46) Arterial Blood pO2 at Patient Temp 57 mmHg (75-108) Arterial Blood HCO3 18 mmol/L (21-28) Arterial Blood Base Excess -9 mmol/L (-3-3) FiO2 50 (15l vm) White Blood Count 6.8 x10^3/uL (4.0-11.0) Red Blood Count 4.17 x10^6/uL (3.50-5.40) Hemoglobin 12.0 g/dL (12.0-15.5) Hematocrit 36.4 % (36.0-47.0) Mean Corpuscular Volume 87 fL (79-100) Mean Corpuscular Hemoglobin 29 pg (25-35) Mean Corpuscular Hemoglobin Concent 33 g/dL (31-37) Red Cell Distribution Width 14.6 % (11.5-14.5) Platelet Count 248 x10^3/uL (140-400) Neutrophils (%) (Auto) 80 % (31-73) Lymphocytes (%) (Auto) 11 % (24-48) Monocytes (%) (Auto) 8 % (0-9) Eosinophils (%) (Auto) 0 % (0-3) Basophils (%) (Auto) 1 % (0-3) Neutrophils # (Auto) 5.4 x10^3/uL (1.8-7.7) Lymphocytes # (Auto) 0.8 x10^3/uL (1.0-4.8) Monocytes # (Auto) 0.6 x10^3/uL (0.0-1.1) Eosinophils # (Auto) 0.0 x10^3/uL (0.0-0.7) Basophils # (Auto) 0.1 x10^3/uL (0.0-0.2) Sodium Level 155 mmol/L (136-145) Potassium Level 3.1 mmol/L (3.5-5.1) Chloride Level 120 mmol/L (98-107) Carbon Dioxide Level 20 mmol/L (21-32) Anion Gap 15 (6-14) Blood Urea Nitrogen 22 mg/dL (7-20) Creatinine 1.5 mg/dL (0.6-1.0) Estimated GFR (Cockcroft-Gault) 36.3 Glucose Level 150 mg/dL (70-99) Calcium Level 8.5 mg/dL (8.5-10.1) RH-Bng-F-Type Natriuretic Peptide 2590 pg/mL (0-124) Lactic Acid Level 0.8 mmol/L (0.4-2.0) Test 12/30/21 08:12 12/30/21 09:44 12/30/21 09:54 12/30/21 12:15 O2 Saturation 92 % (92-99) 94 % (92-99) Arterial Blood pH 7.17 (7.35-7.45) 7.28 (7.35-7.45) Arterial Blood pCO2 at Patient Temp 40 mmHg (35-46) 34 mmHg (35-46) Arterial Blood pO2 at Patient Temp 74 mmHg (75-108) 77 mmHg (75-108) Arterial Blood HCO3 14 mmol/L (21-28) 16 mmol/L (21-28) Arterial Blood Base Excess -14 mmol/L (-3-3) -10 mmol/L (-3-3) FiO2 70% bipap 70/bipap Sodium Level 152 mmol/L (136-145) Potassium Level 4.0 mmol/L (3.5-5.1) Chloride Level 118 mmol/L (98-107) Carbon Dioxide Level 17 mmol/L (21-32) Anion Gap 17 (6-14) Blood Urea Nitrogen 25 mg/dL (7-20) Creatinine 1.6 mg/dL (0.6-1.0) Estimated GFR (Cockcroft-Gault) 33.7 Glucose Level 180 mg/dL (70-99) Calcium Level 8.5 mg/dL (8.5-10.1) Phosphorus Level 4.4 mg/dL (2.6-4.7) Magnesium Level 1.9 mg/dL (1.8-2.4) Thyroid Stimulating Hormone (TSH) 1.230 uIU/mL (0.358-3.74) Free Thyroxine 0.73 ng/dL (0.76-1.46) Glucose (Fingerstick) 169 mg/dL (70-99) Test 12/30/21 16:54 12/30/21 17:51 12/30/21 18:15 Glucose (Fingerstick) 230 mg/dL (70-99) O2 Saturation 93 % (92-99) Arterial Blood pH 7.30 (7.35-7.45) Arterial Blood pCO2 at Patient Temp 41 mmHg (35-46) Arterial Blood pO2 at Patient Temp 74 mmHg (75-108) Arterial Blood HCO3 20 mmol/L (21-28) Arterial Blood Base Excess -6 mmol/L (-3-3) FiO2 40/bipap Sodium Level 157 mmol/L (136-145) Potassium Level 3.6 mmol/L (3.5-5.1) Chloride Level 118 mmol/L (98-107) Carbon Dioxide Level 22 mmol/L (21-32) Anion Gap 17 (6-14) Blood Urea Nitrogen 28 mg/dL (7-20) Creatinine 1.9 mg/dL (0.6-1.0) Estimated GFR (Cockcroft-Gault) 27.7 Glucose Level 259 mg/dL (70-99) Calcium Level 8.1 mg/dL (8.5-10.1) Medications Current Medications Hydralazine HCl (Apresoline Inj) 10 mg PRN Q4HRS PRN IVP ELEVATED BP, SEE COMMENTS Last administered on 12/30/21at 18:15; Start 12/24/21 at 20:15 Acetaminophen (Tylenol) 650 mg PRN Q6HRS PRN PO MILD PAIN / TEMP > 100.3'F; Start 12/24/21 at 20:15 Ondansetron HCl (Zofran) 4 mg PRN Q4HRS PRN IVP NAUSEA/VOMITING; Start 12/24/21 at 20:15 Olanzapine (ZyPREXA ZYDIS) 5 mg PRN BID PRN PO ANXIETY / AGITATION Last administered on 12/24/21at 22:49; Start 12/24/21 at 20:15 Bisacodyl (Dulcolax Supp) 10 mg PRN DAILY PRN [facility] CONSTIPATION; Start 12/24/21 at 20:15 Nicardipine HCl 50 mg/Sodium Chloride 250 ml @ 25 mls/hr CONT PRN PRN IV PER PROTOCOL Last administered on 12/27/21at 15:42; Start 12/24/21 at 20:15 Atorvastatin Calcium (Lipitor) 80 mg QHS PO ; Start 12/24/21 at 21:00 Acetaminophen (Tylenol) 650 mg PRN Q6HRS PRN PO MILD PAIN / TEMP > 100.3'F; Start 12/24/21 at 20:15; Stop 12/24/21 at 20:17; Status DC Bisacodyl (Dulcolax Supp) 10 mg PRN DAILY PRN [facility] CONSTIPATION; Start 12/24/21 at 20:15; Status UNV Famotidine (Pepcid Vial) 20 mg BID IVP Last administered on 12/26/21at 08:38; Start 12/24/21 at 21:00; Stop 12/26/21 at 08:51; Status DC Aspirin (Aspirin Rectal Supp) 300 mg PRN DAILY PRN [facility] IF UNABLE TO TAKE PO Last administered on 12/29/21at 10:28; Start 12/24/21 at 20:15 Acetaminophen (Tylenol Supp) 650 mg PRN Q6HRS PRN [facility] MILD PAIN / TEMP > 100.3'F; Start 12/24/21 at 20:15 Insulin Human Lispro (HumaLOG) 0-9 UNITS Q6HRS SQ Last administered on 12/30/21at 18:06; Start 12/25/21 at 00:00 Dextrose (Dextrose 50%-Water Syringe) 12.5 gm PRN Q15MIN PRN IV SEE COMMENTS; Start 12/24/21 at 20:15 Dextrose (Iv Dextrose 5%) 250 ml PRN Q15MIN PRN IV SEE COMMENTS; Start 12/24/21 at 20:15 Potassium Chloride/Water 100 ml @ 100 mls/hr Q1H IV ; Start 12/25/21 at 09:00; Stop 12/25/21 at 10:59; Status UNV Potassium Chloride/Water 100 ml @ 100 mls/hr Q1H IV Last administered on 12/25/21at 13:16; Start 12/25/21 at 09:00; Stop 12/25/21 at 12:59; Status DC Cetirizine HCl (ZyrTEC) 10 mg DAILY PO ; Start 12/25/21 at 10:00 Vitamin D (Vitamin D3) 1,000 unit DAILY PO ; Start 12/25/21 at 10:00 Montelukast Sodium (Singulair) 10 mg DAILY PO ; Start 12/25/21 at 10:00 Losartan Potassium (Cozaar) 100 mg DAILY PO ; Start 12/25/21 at 10:00 Pantoprazole Sodium (Protonix) 40 mg DAILYAC PO ; Start 12/25/21 at 11:30; Stop 12/29/21 at 12:07; Status DC Lorazepam (Ativan Inj) 2 mg PRN Q4HRS PRN IVP ANXIETY / AGITATION Last administered on 12/29/21at 20:16; Start 12/25/21 at 10:00 Hydrochlorothiazide (Hydrodiuril) 25 mg DAILY PO ; Start 12/25/21 at 10:00 Sodium Chloride 1,000 ml @ 50 mls/hr Q20H IV Last administered on 12/29/21at 08:14; Start 12/25/21 at 17:00; Stop 12/30/21 at 10:35; Status DC Famotidine (Pepcid Vial) 20 mg DAILY IVP Last administered on 12/29/21at 08:16; Start 12/27/21 at 09:00 Labetalol HCl (Normodyne Iv Push) 10 mg PRN Q2HR PRN IVP HYPERTENSION (1ST) Last administered on 12/30/21at 15:22; Start 12/26/21 at 13:15 Heparin Sodium (Porcine) (Heparin Sodium) 5,000 unit Q8HRS SQ Last administered on 12/30/21at 14:05; Start 12/26/21 at 14:00 Labetalol HCl (Normodyne Iv Push) 20 mg PRN Q2HR PRN IVP HYPERTENSION (1ST) Last administered on 12/30/21at 17:45; Start 12/26/21 at 13:30 Clonidine HCl (Catapres Tts-2) 1 patch WEEKLY TD Last administered on 12/26/21at 15:13; Start 12/26/21 at 15:00 Nicotine (Nicoderm Cq 21mg) 1 patch DAILY TD Last administered on 12/29/21at 08:16; Start 12/26/21 at 15:00 Nitroglycerin (Nitro-Bid Oint) 1 inch Q6HRS TP Last administered on 12/30/21at 1 2:54; Start 12/26/21 at 18:00 Enalaprilat (Vasotec Inj) 1.25 mg Q6HRS IVP Last administered on 12/30/21at 12:54; Start 12/28/21 at 12:00 Cefazolin Sodium (Ancef) 1 gm 1X ONCE IVP ; Start 01/01/22 at 13:30; Stop 01/01/22 at 13:31 Albuterol Sulfate (Ventolin Neb Soln) 2.5 mg RTQID NEB Last administered on 12/30/21at 07:30; Start 12/30/21 at 08:00; Stop 12/30/21 at 11:22; Status DC Albuterol Sulfate (Ventolin Neb Soln) 2.5 mg PRN Q4HRS PRN NEB SHORTNESS OF BREATH Last administered on 12/30/21at 01:55; Start 12/30/21 at 02:00 Piperacillin Sod/ Tazobactam Sod (Zosyn Per Pharmacy) 1 each PRN DAILY PRN [facility] SEE COMMENTS; Start 12/30/21 at 04:30 Potassium Chloride/Water 100 ml @ 100 mls/hr Q1H IV Last administered on 12/30/21at 09:25; Start 12/30/21 at 05:00; Stop 12/30/21 at 08:59; Status DC Piperacillin Sod/ Tazobactam Sod 3.375 gm/Sodium Chloride 50 ml @ 100 mls/hr Q6HRS IV Last administered on 12/30/21at 18:08; Start 12/30/21 at 06:00 Sodium Chloride 1,000 ml @ 75 mls/hr [id number] IV ; Start 12/30/21 at 08:30; Stop 12/30/21 at 11:22; Status DC Sodium Bicarbonate (Sodium Bicarb Adult 8.4% Syr) 50 meq 1X ONCE IV Last administered on 12/30/21at 08:30; Start 12/30/21 at 08:30; Stop 12/30/21 at 08:40; Status DC Albuterol/ Ipratropium (Duoneb) 3 ml RTQID NEB Last administered on 12/30/21at 15:59; Start 12/30/21 at 12:00 Vancomycin HCl (Vanco Per Pharmacy) 1 each PRN DAILY PRN [facility] SEE COMMENTS Last administered on 12/30/21at 12:57; Start 12/30/21 at 10:30 Sodium Bicarbonate (Sodium Bicarb Adult 8.4% Syr) 50 meq 1X ONCE IV Last administered on 12/30/21at 11:10; Start 12/30/21 at 10:30; Stop 12/30/21 at 10:34; Status DC Vancomycin HCl 1.5 gm/Sodium Chloride 500 ml @ 250 mls/hr 1X ONCE IV Last administered on 12/30/21at 10:51; Start 12/30/21 at 11:00; Stop 12/30/21 at 12:59; Status DC Sodium Bicarbonate 150 meq/Dextrose 1,150 ml @ 75 mls/hr [id number] IV Last administered on 12/30/21at 11:57; Start 12/30/21 at 11:00 Aspirin (Aspirin Rectal Supp) 300 mg DAILY [facility] Last administered on 12/30/21at 11:09; Start 12/30/21 at 11:00 Vancomycin HCl 1 gm/Sodium Chloride 250 ml @ 250 mls/hr Q24H IV ; Start 12/31/21 at 11:00 Vancomycin HCl (Vancomycin Trough Level) 1 each 1X ONCE MC ; Start 01/01/22 at 10:30; Stop 01/01/22 at 10:31 Lactobacillus Rhamnosus (Culturelle) 1 cap BID PO ; Start 12/30/21 at 21:00 Furosemide (Lasix) 40 mg 1X ONCE IVP Last administered on 12/30/21at 18:04; Start 12/30/21 at 17:45; Stop 12/30/21 at 17:46; Status DC Diltiazem HCl 125 mg/Sodium Chloride 125 ml @ 5 mls/hr CONT PRN IV PER PROTOCOL; Start 12/30/21 at 18:15 Active Scripts Active Reported Montelukast Sodium 10 Mg Tablet 1 Tab PO DAILY Stool Softener (Docusate Sodium) 50 Mg Capsule 50 Mg PO BID [place] 5-325 Tablet (Acetaminophen/Hydrocodone Bitart) 1 Each Tablet 1 Tab PO Q4HRS LAST DOSE GIVEN: Lantus Solostar (Insulin Glargine,Hum.rec.anlog) 100 Unit/1 Ml Insuln.pen 21 Unit SQ QHS Culturelle (Lactobacillus Rhamnosus Gg) 1 Each Capsule 1 Each PO DAILY Alive Once Daily Women 50 Plus (Mv-Mn/Folic Acid/Vit K/[id number]) 1 Each Tablet 1 Each PO DAILY [place] 5-325 Tablet (Acetaminophen/Hydrocodone Bitart) 1 Each Tablet 1 Tab PO PRN Q6HRS PRN Tizanidine Hcl 4 Mg Tablet 2 Tab PO TID PRN Proair Hfa Inhaler (Albuterol Sulfate) 8.5 Gm Hfa.aer.ad 1 Puff INH PRN Q6HRS PRN Montelukast Sodium Tablet (Montelukast Sodium) 10 Mg Tablet 1 Tab PO DAILY Losartan-Hctz 100-25 Mg Tab (Losartan/Hydrochlorothiazide) 1 Each Tablet 1 Tab PO DAILY Protonix (Pantoprazole Sodium) 20 Mg Tablet.dr 1 Tab PO DAILY Vitamin D3 (Cholecalciferol (Vitamin D3)) 1,000 Unit Tablet 1 Tab PO DAILY Cetirizine Hcl 10 Mg Tablet 1 Tab PO DAILY Janumet 50-1,000 Mg Tablet (Sitagliptin Phos/Metformin Hcl) 1 Each Tablet 1 Tab PO BID Vitals/I & O Vital Sign - Last 24 Hours 12/29/21 12/29/21 12/29/21 12/29/21 19:17 20:00 20:19 22:58 Temp 97.2 97.6 97.2 97.6 Pulse 77 77 88 Resp 28 38 B/P (MAP) 180/93 (122) 180/93 185/96 (125) Pulse Ox 89 91 O2 Delivery Room Air Nasal Cannula Nasal Cannula O2 Flow Rate 4.0 4.0 12/29/21 12/29/21 12/30/21 12/30/21 23:06 23:07 01:30 01:45 Pulse 88 88 88 Resp 38 B/P (MAP) 185/96 185/96 184/95 (124) Pulse Ox 88 O2 Delivery Venturi Mask Venturi Mask O2 Flow Rate 15.0 12/30/21 12/30/21 12/30/21 12/30/21 01:55 02:00 02:05 02:15 Pulse 86 87 86 Resp 38 38 B/P (MAP) 189/95 (126) 189/95 181/102 (128) Pulse Ox 90 87 90 O2 Delivery Venturi Mask Venturi Mask Venturi Mask O2 Flow Rate 15.0 12/30/21 12/30/21 12/30/21 12/30/21 02:30 03:00 03:50 04:00 Temp 95.7 95.7 Pulse 90 90 86 86 Resp 38 40 34 36 B/P (MAP) 195/92 (126) 176/84 (114) 167/83 (111) 165/89 (114) Pulse Ox 92 96 91 94 O2 Delivery Venturi Mask Venturi Mask Venturi Mask Venturi Mask 12/30/21 12/30/21 12/30/21 12/30/21 05:20 05:58 06:00 07:27 Pulse 86 86 86 87 Resp 36 40 B/P (MAP) 160/81 (107) 160/81 160/81 158/61 (93) Pulse Ox 93 93 O2 Delivery Venturi Mask Venturi Mask 12/30/21 12/30/21 12/30/21 12/30/21 07:30 08:00 08:05 09:15 Temp 92.3 92.3 Pulse 80 Resp 40 B/P (MAP) 161/90 (113) Pulse Ox 93 93 94 O2 Delivery Venturi Mask Non-Rebreather BiPAP/CPAP BiPAP/CPAP O2 Flow Rate 15.0 15.0 2/1212/30/21 12/30/21 12/30/21 09:30 09:30 09:45 10:00 Temp 93.8 93.8 Pulse 76 78 70 Resp 40 35 35 B/P (MAP) 146/87 (106) 154/89 (110) 134/83 (100) Pulse Ox 95 96 96 O2 Delivery Bi-pap BiPAP/CPAP BiPAP/CPAP BiPAP/CPAP 12/30/21 12/30/21 12/30/21 12/30/21 10:07 10:30 11:00 11:22 Temp 96.3 96.3 Pulse 76 80 Resp 34 34 B/P (MAP) 132/78 (96) 139/82 (101) Pulse Ox 97 95 96 97 O2 Delivery BiPAP/CPAP BiPAP/CPAP BiPAP/CPAP BiPAP/CPAP 12/30/21 12/30/21 12/30/21 12/30/21 12:00 12:54 12:54 13:00 Temp 96.5 96.5 Pulse 94 93 93 88 Resp 35 33 B/P (MAP) 152/87 (108) 152/87 152/87 151/81 (104) Pulse Ox 95 96 O2 Delivery BiPAP/CPAP BiPAP/CPAP 12/30/21 12/30/21 12/30/21 12/30/21 14:00 14:30 15:00 15:22 Pulse 73 119 119 Resp 25 28 B/P (MAP) 139/78 (98) 212/117 (148) 212/117 Pulse Ox 97 97 97 O2 Delivery BiPAP/CPAP BiPAP/CPAP BiPAP/CPAP 12/30/21 12/30/21 12/30/21 12/30/21 15:30 15:59 16:00 17:42 Temp 97.8 97.8 Pulse 90 74 Resp 30 B/P (MAP) 112/67 (82) 119/63 (81) Pulse Ox 97 95 96 O2 Delivery BiPAP/CPAP BiPAP/CPAP BiPAP/CPAP 12/30/21 12/30/21 17:45 18:15 Pulse 109 92 B/P (MAP) 213/123 210/99 Intake and Output 12/29/21 12/29/21 12/30/21 15:08 23:08 07:08 Intake Total 150 ml Output Total 550 ml 750 ml Balance -550 ml -600 ml Justicifation of Admission Dx: Justifications for Admission: Justification of Admission Dx: Yes Stroke - Ischemic: Stroke-Ischemic DAVID MONTALVO MD Dec 30, 2021 18:45
[2021-12-30] MEDS ORDERED: ETOMIDATE 20 MG/10 ML VIAL. IV ONE ×2 (19:49→20:00)
[2021-12-30] MEDS ORDERED: SUCCINYLCHOLINE 200 MG/10 ML VIAL. ONE ×2 (19:49→20:00)
[2021-12-30] MEDS ORDERED: SODIUM BICARB ADULT 8.4% 50 MEQ/50 ML DISP.SYRIN. ONE (20:00)
[2021-12-30] MEDS ORDERED: EPINEPHrine SYRINGE 1 MG/10 ML SYRINGE. ONE (20:00)
[2021-12-30] MEDS ORDERED: MAGNESIUM SULFATE PREMIX 1 GM/100 ML BAG. IV ONE (20:00)
[2021-12-30] MEDS ORDERED: AMIODARONE 150 MG/3 ML VIAL ONE (20:00)
--- NOTE | 2021-12-30 20:18 | PDOC ---
GENERAL General: anesthesia paged to intubate patient. etomidate 20mg given and succinylcholine 100mg given. patient was easily intubated with #3 glidescope, secured at 20cm at the teeth, bilateral breath sounds and positive end tidal color change. VITAL SIGNS Vital Signs/I&O: Vital Signs Date Time Temp Pulse Resp B/P (MAP) Pulse Ox O2 Delivery O2 Flow Rate FiO2 12/30/21 18:15 92 210/99 12/30/21 18:00 36 96 BiPAP/CPAP 12/30/21 16:00 97.8 97.8 12/30/21 08:00 15.0 I & O 12/29/21 12/29/21 12/30/21 15:00 23:00 07:00 Intake Total 150 ml Output Total 550 ml 750 ml Balance -550 ml -600 ml ALLERGIES Allergies: Allergies Coded Allergies Type Severity Reaction Last Updated Verified Sulfa (Sulfonamide Antibiotics) Allergy Intermediate Hives 06/02/19 Yes latex Allergy Intermediate Swelling 06/02/19 Yes lisinopril Allergy Intermediate Rash 06/02/19 Yes levofloxacin Adverse Reaction Intermediate 12/25/21 Yes MEDS Medications: Current Medications Medications (Trade) Dose Ordered Sig/Fabio Route PRN Reason Start Time Stop Time Status Last Admin Dose Admin Albuterol Sulfate (Ventolin Neb Soln) 2.5 mg RTQID NEB 12/30/21 08:00 12/30/21 11:22 DC 12/30/21 07:30 Albuterol Sulfate (Ventolin Neb Soln) 2.5 mg PRN Q4HRS PRN NEB SHORTNESS OF BREATH 12/30/21 02:00 12/30/21 01:55 Potassium Chloride/Water 100 ml @ 100 mls/hr Q1H IV 12/30/21 05:00 12/30/21 08:59 DC 12/30/21 09:25 Piperacillin Sod/ Tazobactam Sod 3.375 gm/Sodium Chloride 50 ml @ 100 mls/hr Q6HRS IV 12/30/21 06:00 12/30/21 18:08 Sodium Bicarbonate (Sodium Bicarb Adult 8.4% Syr) 50 meq 1X ONCE IV 12/30/21 08:30 12/30/21 08:40 DC 12/30/21 08:30 Albuterol/ Ipratropium (Duoneb) 3 ml RTQID NEB 12/30/21 12:00 12/30/21 15:59 Vancomycin HCl (Vanco Per Pharmacy) 1 each PRN DAILY PRN MC SEE COMMENTS 12/30/21 10:30 12/30/21 12:57 Sodium Bicarbonate (Sodium Bicarb Adult 8.4% Syr) 50 meq 1X ONCE IV 12/30/21 10:30 12/30/21 10:34 DC 12/30/21 11:10 Vancomycin HCl 1.5 gm/Sodium Chloride 500 ml @ 250 mls/hr 1X ONCE IV 12/30/21 11:00 12/30/21 12:59 DC 12/30/21 10:51 Sodium Bicarbonate 150 meq/Dextrose 1,150 ml @ 75 mls/hr [id number] IV 12/30/21 11:00 12/30/21 11:57 Aspirin (Aspirin Rectal Supp) 300 mg DAILY W[place] 12/30/21 11:00 12/30/21 11:09 Furosemide (Lasix) 40 mg 1X ONCE IVP 12/30/21 17:45 12/30/21 17:46 DC 12/30/21 18:04 LAB Lab: Laboratory Tests Test 12/29/21 23:19 12/30/21 01:30 12/30/21 02:30 12/30/21 04:25 Glucose (Fingerstick) 211 mg/dL (70-99) H O2 Saturation 86 % (92-99) L Arterial Blood pH 7.24 (7.35-7.45) L Arterial Blood pCO2 at Patient Temp 43 mmHg (35-46) Arterial Blood pO2 at Patient Temp 57 mmHg (75-108) L Arterial Blood HCO3 18 mmol/L (21-28) L Arterial Blood Base Excess -9 mmol/L (-3-3) L FiO2 50 (15l vm) White Blood Count 6.8 x10^3/uL (4.0-11.0) Red Blood Count 4.17 x10^6/uL (3.50-5.40) Hemoglobin 12.0 g/dL (12.0-15.5) Hematocrit 36.4 % (36.0-47.0) Mean Corpuscular Volume 87 fL (79-100) Mean Corpuscular Hemoglobin 29 pg (25-35) Mean Corpuscular Hemoglobin Concent 33 g/dL (31-37) Red Cell Distribution Width 14.6 % (11.5-14.5) H Platelet Count 248 x10^3/uL (140-400) Neutrophils (%) (Auto) 80 % (31-73) H Lymphocytes (%) (Auto) 11 % (24-48) L Monocytes (%) (Auto) 8 % (0-9) Eosinophils (%) (Auto) 0 % (0-3) Basophils (%) (Auto) 1 % (0-3) Neutrophils # (Auto) 5.4 x10^3/uL (1.8-7.7) Lymphocytes # (Auto) 0.8 x10^3/uL (1.0-4.8) L Monocytes # (Auto) 0.6 x10^3/uL (0.0-1.1) Eosinophils # (Auto) 0.0 x10^3/uL (0.0-0.7) Basophils # (Auto) 0.1 x10^3/uL (0.0-0.2) Sodium Level 155 mmol/L (136-145) H Potassium Level 3.1 mmol/L (3.5-5.1) L Chloride Level 120 mmol/L (98-107) H Carbon Dioxide Level 20 mmol/L (21-32) L Anion Gap 15 (6-14) H Blood Urea Nitrogen 22 mg/dL (7-20) H Creatinine 1.5 mg/dL (0.6-1.0) H Estimated GFR (Cockcroft-Gault) 36.3 Glucose Level 150 mg/dL (70-99) H Calcium Level 8.5 mg/dL (8.5-10.1) WQ-Ykg-C-Type Natriuretic Peptide 2590 pg/mL (0-124) H Lactic Acid Level 0.8 mmol/L (0.4-2.0) Test 12/30/21 08:12 12/30/21 09:44 12/30/21 09:54 12/30/21 12:15 O2 Saturation 92 % (92-99) 94 % (92-99) Arterial Blood pH 7.17 (7.35-7.45) *L 7.28 (7.35-7.45) L Arterial Blood pCO2 at Patient Temp 40 mmHg (35-46) 34 mmHg (35-46) L Arterial Blood pO2 at Patient Temp 74 mmHg (75-108) L 77 mmHg (75-108) Arterial Blood HCO3 14 mmol/L (21-28) L 16 mmol/L (21-28) L Arterial Blood Base Excess -14 mmol/L (-3-3) L -10 mmol/L (-3-3) L FiO2 70% bipap 70/bipap Sodium Level 152 mmol/L (136-145) H Potassium Level 4.0 mmol/L (3.5-5.1) Chloride Level 118 mmol/L (98-107) H Carbon Dioxide Level 17 mmol/L (21-32) L Anion Gap 17 (6-14) H Blood Urea Nitrogen 25 mg/dL (7-20) H Creatinine 1.6 mg/dL (0.6-1.0) H Estimated GFR (Cockcroft-Gault) 33.7 Glucose Level 180 mg/dL (70-99) H Calcium Level 8.5 mg/dL (8.5-10.1) Phosphorus Level 4.4 mg/dL (2.6-4.7) Magnesium Level 1.9 mg/dL (1.8-2.4) Thyroid Stimulating Hormone (TSH) 1.230 uIU/mL (0.358-3.74) Free Thyroxine 0.73 ng/dL (0.76-1.46) L Glucose (Fingerstick) 169 mg/dL (70-99) H Test 12/30/21 16:54 12/30/21 17:51 12/30/21 18:15 Glucose (Fingerstick) 230 mg/dL (70-99) H O2 Saturation 93 % (92-99) Arterial Blood pH 7.30 (7.35-7.45) L Arterial Blood pCO2 at Patient Temp 41 mmHg (35-46) Arterial Blood pO2 at Patient Temp 74 mmHg (75-108) L Arterial Blood HCO3 20 mmol/L (21-28) L Arterial Blood Base Excess -6 mmol/L (-3-3) L FiO2 40/bipap Sodium Level 157 mmol/L (136-145) H Potassium Level 3.6 mmol/L (3.5-5.1) Chloride Level 118 mmol/L (98-107) H Carbon Dioxide Level 22 mmol/L (21-32) Anion Gap 17 (6-14) H Blood Urea Nitrogen 28 mg/dL (7-20) H Creatinine 1.9 mg/dL (0.6-1.0) H Estimated GFR (Cockcroft-Gault) 27.7 Glucose Level 259 mg/dL (70-99) H Calcium Level 8.1 mg/dL (8.5-10.1) L Laboratory Tests 12/30/21 02:30 Laboratory Tests 12/30/21 02:30 12/30/21 09:54 12/30/21 18:15 Justifications for Admission TIA Indications Persistent neurologic signs?: Yes Justification for admission: There is persistence of patient's focal neurologic signs or symptoms or there is concern for recurrence of patient's neurological signs and symptoms. Severe hypertension?: Yes Justification for admission: There is concern for patient's severe hypertension of (>180/110mmHg--please indicate patient's BP here) that has not been controlled by ED treatment. Patient needs inpatient level of care for further evaluation and management. 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
--- NOTE | 2021-12-30 20:30 | NUR ---
Intubated Note: Patient intubated at 2006. Patient given 100mg of Succinylcholine and 20mg Etomidate during intubation. Intubated with no difficultly - 7.5 ETT @ 20 at the lip. SpO2 above 95%. Vent settings are AC rate 20, TV 400, FiO2 45%, Peep 5. OG tube placed. Chest x-ray confirmed placement of ETT tube and OG tube. Dr Aleman called with update on patient's status. Will continue to monitor.
--- NOTE | 2021-12-30 20:52 | RAD ---
Exam: Chest one view INDICATION: Post intubation, TECHNIQUE: Frontal view of the chest Comparisons: 12/30/2021 FINDINGS: Enteric tube traverses below the diaphragm distal extent not visualized likely within stomach. The cardiomediastinal silhouette and pulmonary vessels are within normal limits. Hazy bibasilar airspace disease. No pleural effusion. IMPRESSION: Lines and tubes as described above. Electronically signed by: Snow Lawton MD (12/30/2021 8:50 PM) [facility]
[2021-12-30] MEDS: LACTOBACILLUS RHAMNOSUS GG 1 CAPSULE. PO SCH (21:00)
[2021-12-30] MEDS: ATORVASTATIN CALCIUM 40 MG TABLET. PO SCH (21:00)
[2021-12-30] MEDS ORDERED: DEXMEDETOMIDINE 400 MCG in IV NORMAL SALINE 100ML 96 ML IV PRN (21:30)
[2021-12-30] MEDS ORDERED: MIDAZOLAM HCL/PF 5 MG/5 ML VIAL. IVP PRN (21:30)
[2021-12-30] MEDS ORDERED: VECURONIUM BOLUS 10 MG VIAL. IV PRN (21:30)
[2021-12-30] MEDS ORDERED: IV NORMAL SALINE 500ML BAG 500 ML IV PRN (21:30)
[2021-12-30] MEDS ORDERED: POLYVINYL ALCOHOL 1.4% OPHTH SOLUTION 15ML BOTTLE. OU PRN (21:30)
[2021-12-30] MEDS ORDERED: ATROPINE 0.5 MG/5 ML DISP.SYRINGE. IV PRN (21:30)
[2021-12-30] MEDS ORDERED: MIDAZOLAM 100mg/100ml NS BAG 100 ML IV PRN (21:30)
[2021-12-30 21:52] LABS: BASE EXCESS ABG -4 mmol/L (-3-3); HCO3 ABG 20 mmol/L (21-28); PCO2 ABG 30 mmHg (35-46); PO2 ABG 72 mmHg (75-108); SAT O2 ABG 94 % (92-99)
[2021-12-30 21:53] LABS: FIO2 ABG 45
[2021-12-30] MEDS: PROPOFOL 100 ML IV PRN (22:23)
[2021-12-31] VITALS (30 sets, daily range): BP systolic 107–174; BP diastolic 42–64
[2021-12-31] MEDS: PIPERACILLIN/TAZOBACTAM 3.375 GM in IV NORMAL SALINE 50ML 50 ML IV SCH ×4 (00:17→17:45)
[2021-12-31] MEDS: INSULIN LISPRO 300 UNITS/3 ML VIAL. SQ SCH ×4 (00:18→17:44)
--- NOTE | 2021-12-31 00:42 | EKG ---
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
[2021-12-31] MEDS: SODIUM BICARBONATE VIAL 150 MEQ in IV DEXTROSE 5% 1,000 ML IV SCH (03:04)
--- NOTE | 2021-12-31 03:46 | RAD ---
XR CHEST 1V INDICATION: Worsening respiratory status COMPARISON STUDY: 12/30/2027 2. FINDINGS: Lungs: Normal lung volume. Improving bibasilar opacity. Pleura: Stable small pleural effusions. Heart and Mediastinum: Stable cardiomediastinal silhouette and great vessels. IMPRESSION: 1. Improving bibasilar opacities. 2. Stable small pleural effusions. Electronically signed by: Tony Glover MD (12/31/2021 3:44 AM) [facility]
[2021-12-31] MEDS: NITROGLYCERIN OINT 1 GM PACKET. TP SCH ×3 (05:23→17:26)
[2021-12-31 05:45] LABS: CALCIUM 7.9 mg/dL (8.5-10.1); CREATININE 2.3 mg/dL (0.6-1.0); GFR 22.2
[2021-12-31 05:53] LABS: POTASSIUM 2.6 mmol/L (3.5-5.1)
[2021-12-31] MEDS: ENALAPRILAT 1.25 MG/ML VIAL. IVP SCH ×2 (06:00→11:19)
[2021-12-31] MEDS: PROPOFOL 100 ML IV PRN ×2 (06:02→16:40)
[2021-12-31] MEDS: HEPARIN for SUB-Q USE 5,000 UNIT/ML VIAL. SQ SCH ×3 (06:04→22:10)
[2021-12-31 07:38] LABS: MAGNESIUM 1.7 mg/dL (1.8-2.4); PHOSPHORUS 2.7 mg/dL (2.6-4.7)
[2021-12-31 07:38] LABS: BASE EXCESS ABG 1 mmol/L (-3-3); HCO3 ABG 23 mmol/L (21-28); PCO2 ABG 30 mmHg (35-46); PO2 ABG 101 mmHg (75-108); SAT O2 ABG 97 % (92-99)
[2021-12-31] MEDS ORDERED: POTASSIUM BICARB 20 MEQ EFFERVESCENT TABLET. PEG ONE (08:30)
[2021-12-31] MEDS ORDERED: MAGNESIUM SULFATE 2GM 50 ML IV ONE (08:30)
[2021-12-31] MEDS: IPRATRPIUM/ALBUTEROL 0.5/2.5MG 3 ML NEBU. NEB SCH ×4 (08:35→20:16)
[2021-12-31 08:57] LABS: FIO2 ABG 45/AC 20 400 +5
[2021-12-31] MEDS: hydroCHLOROthiazide 25 MG TABLET PO SCH (09:00)
[2021-12-31] MEDS: IV 1/2 NORMAL SALINE 1,000 ML IV SCH (09:06)
[2021-12-31] MEDS: CETIRIZINE HCL 10 MG TABLET. PO SCH (09:07)
[2021-12-31] MEDS: LACTOBACILLUS RHAMNOSUS GG 1 CAPSULE. PO SCH ×2 (09:08→21:00)
[2021-12-31] MEDS: LOSARTAN POTASSIUM 50 MG TABLET. PO SCH (09:08)
[2021-12-31] MEDS: FAMOTIDINE 20 MG/2 ML VIAL IVP SCH (09:08)
[2021-12-31] MEDS: CHLORHEXIDINE 0.12% 15 ML MOUTHWASH. MM SCH ×2 (09:08→21:16)
[2021-12-31] MEDS: CHOLECALCIFEROL (VITAMIN D3) 1,000 UNIT TABLET PO SCH (09:09)
[2021-12-31] MEDS: NICOTINE 21MG PATCH. TD SCH (09:09)
[2021-12-31] MEDS: MONTELUKAST SODIUM 10 MG TABLET. PO SCH (09:10)
[2021-12-31] MEDS: ASPIRIN RECTAL 300 MG SUPP. PR SCH (09:11)
--- NOTE | 2021-12-31 10:24 | PDOC ---
Renal-Progress Notes Subjective Notes Notes INTUBATED History of Present Illness Hx of present illness GOT INTUBATED SINCE YESTERDAY Vitals Vitals Vital Signs Date Time Temp Pulse Resp B/P (MAP) Pulse Ox O2 Delivery O2 Flow Rate FiO2 12/31/21 09:17 21 100 Ventilator 12/31/21 09:00 66 142/64 12/31/21 08:00 98.0 98.0 12/30/21 08:00 15.0 Weight Weight [ ] I.O. Intake and Output Intake and Output 12/31/21 07:00 Intake Total 2246.6 ml Output Total 568 ml Balance 1678.6 ml IV Total 2246.6 ml Output Urine Total 568 ml Labs Labs Laboratory Tests Test 12/30/21 12:15 12/30/21 16:54 12/30/21 17:51 12/30/21 18:15 Glucose (Fingerstick) 169 mg/dL (70-99) 230 mg/dL (70-99) O2 Saturation 93 % (92-99) Arterial Blood pH 7.30 (7.35-7.45) Arterial Blood pCO2 at Patient Temp 41 mmHg (35-46) Arterial Blood pO2 at Patient Temp 74 mmHg (75-108) Arterial Blood HCO3 20 mmol/L (21-28) Arterial Blood Base Excess -6 mmol/L (-3-3) FiO2 40/bipap Sodium Level 157 mmol/L (136-145) Potassium Level 3.6 mmol/L (3.5-5.1) Chloride Level 118 mmol/L (98-107) Carbon Dioxide Level 22 mmol/L (21-32) Anion Gap 17 (6-14) Blood Urea Nitrogen 28 mg/dL (7-20) Creatinine 1.9 mg/dL (0.6-1.0) Estimated GFR (Cockcroft-Gault) 27.7 Glucose Level 259 mg/dL (70-99) Calcium Level 8.1 mg/dL (8.5-10.1) Test 12/30/21 21:30 12/31/21 00:16 12/31/21 05:20 12/31/21 06:00 O2 Saturation 94 % (92-99) Arterial Blood pH 7.43 (7.35-7.45) Arterial Blood pCO2 at Patient Temp 30 mmHg (35-46) Arterial Blood pO2 at Patient Temp 72 mmHg (75-108) Arterial Blood HCO3 20 mmol/L (21-28) Arterial Blood Base Excess -4 mmol/L (-3-3) FiO2 45 Glucose (Fingerstick) 270 mg/dL (70-99) 184 mg/dL (70-99) Sodium Level 154 mmol/L (136-145) Potassium Level 2.6 mmol/L (3.5-5.1) Chloride Level 117 mmol/L (98-107) Carbon Dioxide Level 26 mmol/L (21-32) Anion Gap 11 (6-14) Blood Urea Nitrogen 32 mg/dL (7-20) Creatinine 2.3 mg/dL (0.6-1.0) Estimated GFR (Cockcroft-Gault) 22.2 Glucose Level 172 mg/dL (70-99) Calcium Level 7.9 mg/dL (8.5-10.1) Phosphorus Level 2.7 mg/dL (2.6-4.7) Magnesium Level 1.7 mg/dL (1.8-2.4) Test 12/31/21 07:20 O2 Saturation 97 % (92-99) Arterial Blood pH 7.50 (7.35-7.45) Arterial Blood pCO2 at Patient Temp 30 mmHg (35-46) Arterial Blood pO2 at Patient Temp 101 mmHg (75-108) Arterial Blood HCO3 23 mmol/L (21-28) Arterial Blood Base Excess 1 mmol/L (-3-3) FiO2 45/ac 20 400 +5 Review of Systems Constitutional: yes: unresponsive Physical Exam General Appearance: no apparent distress Skin: warm Respiratory: bilateral CTA Heart: S1S2 Abdomen: soft, bowel sounds present Genitourinary: bladder flat Extremities: pulses present Neurology: other (SEDATED) Assessment Assessment IMP CVA HTN-IMPROVED DM II HYPERNATREMIA HYPOKALEMIA HYPOMAGNESEMIA MET ACIDOSIS MICHELET VS CKD STAGE 3-CR OF 2.3 DEHYDRATION ACUTE RESP FAILURE PROB ASPIRATION PNEUMONIA PLAN REPLACE K AND MAG STOP HCO3 HYPOTONIC SALINE VENT SUPPORT ANTIBIOTICS CONTROL BG AND HTN WILL FOLLOW MYNOR CARVAJAL MD Dec 31, 2021 10:24
[2021-12-31] MEDS ORDERED: VANCOMYCIN 1 GM in IV NORMAL SALINE 250ML 250 ML IV SCH (11:00)
--- NOTE | 2021-12-31 11:19 | PDOC ---
PULMONARY PROGRESS NOTES DATE: 12/31/21 TIME: 11:17 Subjective Patient currently on assist control ventilation IV sodium bicarb Sedated Vitals Vital Signs Date Time Temp Pulse Resp B/P (MAP) Pulse Ox O2 Delivery O2 Flow Rate FiO2 12/31/21 09:17 21 100 Ventilator 12/31/21 09:00 66 142/64 12/31/21 08:00 98.0 98.0 12/30/21 08:00 15.0 Comments Patient is unable to perform review of systems secondary to current clinical state General: Lethargic Lungs: Crackles, Other (decreased base ) Extremities: Other (trace BLE and BUE ) Skin: Warm, Dry Labs Laboratory Tests Test 12/29/21 11:25 12/29/21 18:03 12/29/21 23:19 12/30/21 01:30 Glucose (Fingerstick) 160 mg/dL (70-99) 162 mg/dL (70-99) 211 mg/dL (70-99) O2 Saturation 86 % (92-99) Arterial Blood pH 7.24 (7.35-7.45) Arterial Blood pCO2 at Patient Temp 43 mmHg (35-46) Arterial Blood pO2 at Patient Temp 57 mmHg (75-108) Arterial Blood HCO3 18 mmol/L (21-28) Arterial Blood Base Excess -9 mmol/L (-3-3) FiO2 50 (15l vm) Test 12/30/21 02:30 12/30/21 04:25 12/30/21 08:12 12/30/21 09:44 White Blood Count 6.8 x10^3/uL (4.0-11.0) Red Blood Count 4.17 x10^6/uL (3.50-5.40) Hemoglobin 12.0 g/dL (12.0-15.5) Hematocrit 36.4 % (36.0-47.0) Mean Corpuscular Volume 87 fL (79-100) Mean Corpuscular Hemoglobin 29 pg (25-35) Mean Corpuscular Hemoglobin Concent 33 g/dL (31-37) Red Cell Distribution Width 14.6 % (11.5-14.5) Platelet Count 248 x10^3/uL (140-400) Neutrophils (%) (Auto) 80 % (31-73) Lymphocytes (%) (Auto) 11 % (24-48) Monocytes (%) (Auto) 8 % (0-9) Eosinophils (%) (Auto) 0 % (0-3) Basophils (%) (Auto) 1 % (0-3) Neutrophils # (Auto) 5.4 x10^3/uL (1.8-7.7) Lymphocytes # (Auto) 0.8 x10^3/uL (1.0-4.8) Monocytes # (Auto) 0.6 x10^3/uL (0.0-1.1) Eosinophils # (Auto) 0.0 x10^3/uL (0.0-0.7) Basophils # (Auto) 0.1 x10^3/uL (0.0-0.2) Sodium Level 155 mmol/L (136-145) Potassium Level 3.1 mmol/L (3.5-5.1) Chloride Level 120 mmol/L (98-107) Carbon Dioxide Level 20 mmol/L (21-32) Anion Gap 15 (6-14) Blood Urea Nitrogen 22 mg/dL (7-20) Creatinine 1.5 mg/dL (0.6-1.0) Estimated GFR (Cockcroft-Gault) 36.3 Glucose Level 150 mg/dL (70-99) Calcium Level 8.5 mg/dL (8.5-10.1) PT-Xhj-[id number]-Type Natriuretic Peptide 2590 pg/mL (0-124) Lactic Acid Level 0.8 mmol/L (0.4-2.0) O2 Saturation 92 % (92-99) 94 % (92-99) Arterial Blood pH 7.17 (7.35-7.45) 7.28 (7.35-7.45) Arterial Blood pCO2 at Patient Temp 40 mmHg (35-46) 34 mmHg (35-46) Arterial Blood pO2 at Patient Temp 74 mmHg (75-108) 77 mmHg (75-108) Arterial Blood HCO3 14 mmol/L (21-28) 16 mmol/L (21-28) Arterial Blood Base Excess -14 mmol/L (-3-3) -10 mmol/L (-3-3) FiO2 70% bipap 70/bipap Test 12/30/21 09:54 12/30/21 12:15 12/30/21 16:54 12/30/21 17:51 Sodium Level 152 mmol/L (136-145) Potassium Level 4.0 mmol/L (3.5-5.1) Chloride Level 118 mmol/L (98-107) Carbon Dioxide Level 17 mmol/L (21-32) Anion Gap 17 (6-14) Blood Urea Nitrogen 25 mg/dL (7-20) Creatinine 1.6 mg/dL (0.6-1.0) Estimated GFR (Cockcroft-Gault) 33.7 Glucose Level 180 mg/dL (70-99) Calcium Level 8.5 mg/dL (8.5-10.1) Phosphorus Level 4.4 mg/dL (2.6-4.7) Magnesium Level 1.9 mg/dL (1.8-2.4) Thyroid Stimulating Hormone (TSH) 1.230 uIU/mL (0.358-3.74) Free Thyroxine 0.73 ng/dL (0.76-1.46) Glucose (Fingerstick) 169 mg/dL (70-99) 230 mg/dL (70-99) O2 Saturation 93 % (92-99) Arterial Blood pH 7.30 (7.35-7.45) Arterial Blood pCO2 at Patient Temp 41 mmHg (35-46) Arterial Blood pO2 at Patient Temp 74 mmHg (75-108) Arterial Blood HCO3 20 mmol/L (21-28) Arterial Blood Base Excess -6 mmol/L (-3-3) FiO2 40/bipap Test 12/30/21 18:15 12/30/21 21:30 12/31/21 00:16 12/31/21 05:20 Sodium Level 157 mmol/L (136-145) 154 mmol/L (136-145) Potassium Level 3.6 mmol/L (3.5-5.1) 2.6 mmol/L (3.5-5.1) Chloride Level 118 mmol/L (98-107) 117 mmol/L (98-107) Carbon Dioxide Level 22 mmol/L (21-32) 26 mmol/L (21-32) Anion Gap 17 (6-14) 11 (6-14) Blood Urea Nitrogen 28 mg/dL (7-20) 32 mg/dL (7-20) Creatinine 1.9 mg/dL (0.6-1.0) 2.3 mg/dL (0.6-1.0) Estimated GFR (Cockcroft-Gault) 27.7 22.2 Glucose Level 259 mg/dL (70-99) 172 mg/dL (70-99) Calcium Level 8.1 mg/dL (8.5-10.1) 7.9 mg/dL (8.5-10.1) O2 Saturation 94 % (92-99) Arterial Blood pH 7.43 (7.35-7.45) Arterial Blood pCO2 at Patient Temp 30 mmHg (35-46) Arterial Blood pO2 at Patient Temp 72 mmHg (75-108) Arterial Blood HCO3 20 mmol/L (21-28) Arterial Blood Base Excess -4 mmol/L (-3-3) FiO2 45 Glucose (Fingerstick) 270 mg/dL (70-99) Phosphorus Level 2.7 mg/dL (2.6-4.7) Magnesium Level 1.7 mg/dL (1.8-2.4) Test 12/31/21 06:00 12/31/21 07:20 Glucose (Fingerstick) 184 mg/dL (70-99) O2 Saturation 97 % (92-99) Arterial Blood pH 7.50 (7.35-7.45) Arterial Blood pCO2 at Patient Temp 30 mmHg (35-46) Arterial Blood pO2 at Patient Temp 101 mmHg (75-108) Arterial Blood HCO3 23 mmol/L (21-28) Arterial Blood Base Excess 1 mmol/L (-3-3) FiO2 45/ac 20 400 +5 Laboratory Tests Test 12/30/21 12:15 12/30/21 16:54 12/30/21 17:51 12/30/21 18:15 Glucose (Fingerstick) 169 mg/dL (70-99) 230 mg/dL (70-99) O2 Saturation 93 % (92-99) Arterial Blood pH 7.30 (7.35-7.45) Arterial Blood pCO2 at Patient Temp 41 mmHg (35-46) Arterial Blood pO2 at Patient Temp 74 mmHg (75-108) Arterial Blood HCO3 20 mmol/L (21-28) Arterial Blood Base Excess -6 mmol/L (-3-3) FiO2 40/bipap Sodium Level 157 mmol/L (136-145) Potassium Level 3.6 mmol/L (3.5-5.1) Chloride Level 118 mmol/L (98-107) Carbon Dioxide Level 22 mmol/L (21-32) Anion Gap 17 (6-14) Blood Urea Nitrogen 28 mg/dL (7-20) Creatinine 1.9 mg/dL (0.6-1.0) Estimated GFR (Cockcroft-Gault) 27.7 Glucose Level 259 mg/dL (70-99) Calcium Level 8.1 mg/dL (8.5-10.1) Test 12/30/21 21:30 12/31/21 00:16 12/31/21 05:20 12/31/21 06:00 O2 Saturation 94 % (92-99) Arterial Blood pH 7.43 (7.35-7.45) Arterial Blood pCO2 at Patient Temp 30 mmHg (35-46) Arterial Blood pO2 at Patient Temp 72 mmHg (75-108) Arterial Blood HCO3 20 mmol/L (21-28) Arterial Blood Base Excess -4 mmol/L (-3-3) FiO2 45 Glucose (Fingerstick) 270 mg/dL (70-99) 184 mg/dL (70-99) Sodium Level 154 mmol/L (136-145) Potassium Level 2.6 mmol/L (3.5-5.1) Chloride Level 117 mmol/L (98-107) Carbon Dioxide Level 26 mmol/L (21-32) Anion Gap 11 (6-14) Blood Urea Nitrogen 32 mg/dL (7-20) Creatinine 2.3 mg/dL (0.6-1.0) Estimated GFR (Cockcroft-Gault) 22.2 Glucose Level 172 mg/dL (70-99) Calcium Level 7.9 mg/dL (8.5-10.1) Phosphorus Level 2.7 mg/dL (2.6-4.7) Magnesium Level 1.7 mg/dL (1.8-2.4) Test 12/31/21 07:20 O2 Saturation 97 % (92-99) Arterial Blood pH 7.50 (7.35-7.45) Arterial Blood pCO2 at Patient Temp 30 mmHg (35-46) Arterial Blood pO2 at Patient Temp 101 mmHg (75-108) Arterial Blood HCO3 23 mmol/L (21-28) Arterial Blood Base Excess 1 mmol/L (-3-3) FiO2 45/ac 20 400 +5 Medications Active Scripts Medications Dose Route/Sig Max Daily Dose Days Date Category Dose Instructions Montelukast Sodium 10 Mg Tablet 1 Tab PO DAILY 12/24/21 Reported Stool Softener (Docusate Sodium) 50 Mg Capsule 50 Mg PO BID 06/02/19 Reported Viola 5-325 Tablet (Acetaminophen/Hydrocodone Bitart) 1 Each Tablet 1 Tab PO Q4HRS 06/02/19 Reported LAST DOSE GIVEN: Lantus Solostar (Insulin Glargine,Hum.rec.anlog) 100 Unit/1 Ml Insuln.pen 21 Unit SQ QHS 06/02/19 Reported Culturelle (Lactobacillus Rhamnosus Gg) 1 Each Capsule 1 Each PO DAILY 06/01/19 Reported Alive Once Daily Women 50 Plus (Mv-Mn/Folic Acid/Vit K/[id number]) 1 Each Tablet 1 Each PO DAILY 06/01/19 Reported Viola 5-325 Tablet (Acetaminophen/Hydrocodone Bitart) 1 Each Tablet 1 Tab PO PRN Q6HRS PRN 06/01/19 Reported Tizanidine Hcl 4 Mg Tablet 2 Tab PO TID PRN 06/01/19 Reported Proair Hfa Inhaler (Albuterol Sulfate) 8.5 Gm Hfa.aer.ad 1 Puff INH PRN Q6HRS PRN 01/19/19 Reported Montelukast Sodium Tablet (Montelukast Sodium) 10 Mg Tablet 1 Tab PO DAILY 01/19/19 Reported Losartan-Hctz 100-25 Mg Tab (Losartan/Hydrochlorothiazide) 1 Each Tablet 1 Tab PO DAILY 01/19/19 Reported Protonix (Pantoprazole Sodium) 20 Mg Tablet.dr 1 Tab PO DAILY 01/19/19 Reported Vitamin D3 (Cholecalciferol (Vitamin D3)) 1,000 Unit Tablet 1 Tab PO DAILY 01/19/19 Reported Cetirizine Hcl 10 Mg Tablet 1 Tab PO DAILY 01/19/19 Reported Janumet 50-1,000 Mg Tablet (Sitagliptin Phos/Metformin Hcl) 1 Each Tablet 1 Tab PO BID 01/19/19 Reported Impression . Acute hypoxemic respiratory failure multifactorial metabolic encephalopathy Acute kidney injury, per nephrology Possible sepsis Hypomagnesemia hypokalemia Uncontrolled hypertension Severe metabolic acidosis CVA--positive MRI 12/25/2021, see MRI report COPD Thyroid disorder Plan . Updated 12/31 adjust minute ventilation Patient does assist the ventilator, she does not have a cough Possible repeat CT head CT abdomen no evidence of ischemia Continue empiric antibiotics Overall prognosis is poor Discussed with RN Discussion: Patient was a rapid response overnight 12/29/2021 for altered mental status/hypoxia, and initial work-up appeared benign, patient was placed on BiPAP, ABG revealed metabolic acidosis. Patient had ongoing metabolic acidosis and worsening mental status and hypoxia and was transferred to the intensive care unit this morning 12/30/2021 approximately 9:30 AM. PLAN 12/30/21: Continue current support with BiPAP, follow ABG/chest x-ray, repeat ABG review ed, with improvement in acidosis Will wean FiO2 to keep sats greater than 90% We will proceed with a CT of head for new/worsening unresponsiveness, and follow neurology recommendations, patient recently diagnosed with new onset CVA with positive MRI 12/25/2021, see MRI report Metabolic acidosis/acute kidney injury, will consult nephrology for further recommendations, placed on bicarb drip, Berumen catheter for accurate intake and output Continue hypertensive medications for underlying hypertension Concern for early sepsis, start empiric antibiotics with vancomycin and Zosyn, follow cultures, treat accordingly and follow clinical course, consider infectious disease consultation if not improved Discern for thyroid disorder, pending cortisol, ESR, TSH and free T4, other work-up per primary care Rule out ischemic bowel/other intra-abdominal process, pending CT abdomen and pelvis DVT/GI prophylaxis CODE STATUS full Critical care time 65 minutes, reviewing diagnostics, laboratory data, patient assessment, and reviewing with the care team. VAIBHAV PARIKH MD Dec 31, 2021 11:19
--- NOTE | 2021-12-31 12:30 | PDOC ---
[employer] PROGRESS NOTE Date of Service DOS: DATE: 12/31/21 TIME: 12:29 Chief Complaint Chief Complaint Expressive aphasia unilateral weakness secondary to 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 Acute respiratory failure requiring BiPAP support Concern for early sepsis Dehydration Metabolic acidosis Acute electrolyte derangement, hypernatremia and hyperchloremia-possible dehydration History hypertension History of diabetes diabetes Start empiric IV antibiotics Pending blood cultures Appreciate pulmonology recommendations and BiPAP or vent management Appreciate nephrology recommendationsstart D5 bicarb drip CT of the head, chest, abdomen pelvis pending Pending TSH and cortisol level. -Neurology consulted. MRI with acute infarcts -Speech pathology recommending NPO for now -PT OT -Home meds resumed as indicated -We will start a sliding scale insulin -will contact and discuss with family History of Present Illness History of Present Illness 12/31 Patient evaluated examined at bedside. She required intubation overnight and is currently intubated and sedated. Patient was intubated after family decided on continuing full treatment measures. Blood pressure improved. When seen patient unresponsive no withdrawal to pain. Pupils do still have reflex. Continue current. Nephrology pulmonology following. 45 minutes critical care time 12/30/2021 Rapid response called last night for desaturations down to the 70s. Labs were obtained showing hypernatremia. Patient still unresponsive and placed on BiPAP. ABG showed 7.1 /74/14. Concern for aspiration, worsening of stroke, or dehydration. Nephrology and pulmonology consulted. Patient transferred to the ICU. Empiric IV antibiotics are started and blood cultures are obtained. D5 bicarb drip started. Patient's chart, labs, images were reviewed and discussed with RN 12/29/21 No acute events overnight. Patient seen examined bedside. Sleeping in bed and unable to be arousable with sternal rub or to voice. Patient unable to follow through with speech evaluation. Will need to consider TPN for nutrition. Medicai d application pending. Patient's chart, labs, images were reviewed and discussed with RN 12/28 Patient evaluated examined at bedside. She was sleeping in bed unable to get her to open her eyes even with sternal rub. Some withdrawal to pain in the right lower extremity none in right upper extremity. Unable to follow commands to see if she could hold her arm against gravity. Still having some trouble controlling blood pressure is still on Cardene drip for now. Will schedule Vasotec and try to start weaning off the Cardene drip. 12/27 Evaluated and examined at bedside. She was resting in bed not easily awoken and still cannot provide me really with any history given her aphasic state. She did have some withdrawal to pain in the right lower extremity still no movement and right upper. PT OT. Neuro following. Plan discussed bedside RN. 12/26 Evaluated and examined at bedside. Is a bit lethargic today difficulty staying awake this morning. MRI showing acute infarcts. Neurology continues to follow. Patient remains aphasic. Therapy modalities. Blood pressure control with IV until able to take oral Okay to transfer out of ICU to CVC if bed is needed Vitals/I&O Vitals/I&O: Vital Signs Date Time Temp Pulse Resp B/P (MAP) Pulse Ox O2 Delivery O2 Flow Rate FiO2 12/31/21 12:15 100 Ventilator 12/31/21 09:47 20 12/31/21 09:00 66 142/64 12/31/21 08:00 98.0 98.0 12/30/21 08:00 15.0 I & O 12/30/21 12/30/21 12/31/21 15:00 23:00 07:00 Intake Total 730 ml 325 ml 1191.6 ml Output Total 83 ml 210 ml 275 ml Balance 647 ml 115 ml 916.6 ml Physical Exam General: mild distress Heart: Regular rate Lungs: Crackles, Other (decreased base ) Abdomen: Normal bowel sounds Extremities: No clubbing Skin: No breakdown Labs Labs: Laboratory Tests Test 12/30/21 16:54 12/30/21 17:51 12/30/21 18:15 12/30/21 21:30 Glucose (Fingerstick) 230 mg/dL (70-99) O2 Saturation 93 % (92-99) 94 % (92-99) Arterial Blood pH 7.30 (7.35-7.45) 7.43 (7.35-7.45) Arterial Blood pCO2 at Patient Temp 41 mmHg (35-46) 30 mmHg (35-46) Arterial Blood pO2 at Patient Temp 74 mmHg (75-108) 72 mmHg (75-108) Arterial Blood HCO3 20 mmol/L (21-28) 20 mmol/L (21-28) Arterial Blood Base Excess -6 mmol/L (-3-3) -4 mmol/L (-3-3) FiO2 40/bipap 45 Sodium Level 157 mmol/L (136-145) Potassium Level 3.6 mmol/L (3.5-5.1) Chloride Level 118 mmol/L (98-107) Carbon Dioxide Level 22 mmol/L (21-32) Anion Gap 17 (6-14) Blood Urea Nitrogen 28 mg/dL (7-20) Creatinine 1.9 mg/dL (0.6-1.0) Estimated GFR (Cockcroft-Gault) 27.7 Glucose Level 259 mg/dL (70-99) Calcium Level 8.1 mg/dL (8.5-10.1) Test 12/31/21 00:16 12/31/21 05:20 12/31/21 06:00 12/31/21 07:20 Glucose (Fingerstick) 270 mg/dL (70-99) 184 mg/dL (70-99) Sodium Level 154 mmol/L (136-145) Potassium Level 2.6 mmol/L (3.5-5.1) Chloride Level 117 mmol/L (98-107) Carbon Dioxide Level 26 mmol/L (21-32) Anion Gap 11 (6-14) Blood Urea Nitrogen 32 mg/dL (7-20) Creatinine 2.3 mg/dL (0.6-1.0) Estimated GFR (Cockcroft-Gault) 22.2 Glucose Level 172 mg/dL (70-99) Calcium Level 7.9 mg/dL (8.5-10.1) Phosphorus Level 2.7 mg/dL (2.6-4.7) Magnesium Level 1.7 mg/dL (1.8-2.4) O2 Saturation 97 % (92-99) Arterial Blood pH 7.50 (7.35-7.45) Arterial Blood pCO2 at Patient Temp 30 mmHg (35-46) Arterial Blood pO2 at Patient Temp 101 mmHg (75-108) Arterial Blood HCO3 23 mmol/L (21-28) Arterial Blood Base Excess 1 mmol/L (-3-3) FiO2 45/ac 20 400 +5 Test 12/31/21 12:02 Glucose (Fingerstick) 80 mg/dL (70-99) Comment Review of Relevant I have reviewed the following items chino (where applicable) has been applied. Medications: Current Medications Medications (Trade) Dose Ordered Sig/Fabio Route PRN Reason Start Time Stop Time Status Last Admin Dose Admin Vancomycin HCl 1 gm/Sodium Chloride 250 ml @ 250 mls/hr Q24H IV 12/31/21 11:00 12/31/21 11:19 Furosemide (Lasix) 40 mg 1X ONCE IVP 12/30/21 17:45 12/30/21 17:46 DC 12/30/21 18:04 Furosemide (Lasix) 40 mg 1X ONCE IVP 12/30/21 19:30 12/30/21 19:38 DC 12/30/21 22:24 Fentanyl Citrate 30 ml @ 0 mls/hr CONT PRN IV SEE PROTOCOL 12/30/21 21:30 12/31/21 09:17 Propofol 100 ml @ 1.917 mls/ hr CONT PRN IV PER PROTOCOL 12/30/21 21:30 12/31/21 06:02 Sodium Chloride 1,000 ml @ 75 mls/hr [id number] IV 12/31/21 08:30 12/31/21 09:06 Potassium Bicarbonate (Potassium Effervescent Tablet) 40 meq 1X ONCE PEG 12/31/21 08:30 12/31/21 08:31 DC 12/31/21 09:07 Magnesium Sulfate 50 ml @ 25 mls/hr 1X ONCE IV 12/31/21 08:30 12/31/21 10:29 DC 12/31/21 09:06 Justifications for Admission TIA Indications Persistent neurologic signs?: Yes Justification for admission: There is persistence of patient's focal neurologic signs or symptoms or there is concern for recurrence of patient's neurological signs and symptoms. Severe hypertension?: Yes Justification for admission: There is concern for patient's severe hypertension of (>180/110mmHg--please indicate patient's BP here) that has not been controlled by ED treatment. Patient needs inpatient level of care for further evaluation and management. Other Justification JUDY PATINO MD Dec 31, 2021 12:30
--- NOTE | 2021-12-31 12:52 | CONS ---
DATE OF CONSULTATION: 12/31/2021 ATTENDING PHYSICIAN: Isiah Caicedo MD REASON FOR CONSULTATION: The patient is seen in pulmonary consultation at the request of Dr. Caicedo for respiratory failure. She had a rapid response overnight with altered mental status and hypoxemia. She was initially placed on BiPAP, she worsened and got intubated. HISTORY OF PRESENT ILLNESS: The patient is a 51-year-old who came in and was nonverbal. No history was obtained except for what was in the medical chart. She presented from outside hospital yesterday with right-sided weakness and aphasia. Apparently, she fell. A CT showed age-indeterminate infarct. She was admitted. She was scheduled to undergo an MRI. She had a rapid response as indicated above with decreased mental status, hypoxemia, metabolic acidosis. She was intubated. I was asked to see her in consultation. She is currently on assist control ventilation. Latest arterial blood gas revealed a pH of 7.50, PaCO2 of 30, pO2 of 101, bicarb of 23. She has been seen both by Nephrology and Neurology. The management architect felt that she would benefit from hydration, sodium bicarb. Overnight, she has been hemodynamically stable. PAST MEDICAL HISTORY: Otherwise remarkable for hypertension, hyperlipidemia, possible COPD with an asthma component, gastroesophageal reflux, diabetes. PAST SURGICAL HISTORY: She has had tubal ligation, appendectomy. FAMILY HISTORY: Noncontributory. CURRENT MEDICATIONS: List was reviewed. She is currently sedated. She was on Cardizem drip for a while. She has received magnesium and nicardipine for hypertension. She is on Zosyn and vancomycin for healthcare-acquired infection, nebulized treatments, atorvastatin, Zyrtec, clonidine patch, enalapril p.r.n., famotidine, furosemide, heparin subcutaneous, insulin, labetalol p.r.n., lorazepam p.r.n. REVIEW OF SYSTEMS: Unobtainable secondary to patient's condition. PHYSICAL EXAMINATION: VITAL SIGNS: Stable. She has been afebrile. HEENT: Orally placed endotracheal tube, she was sedated, she was assisting the ventilator, but did not have a cough reflex. LUNGS: Anteriorly scattered rhonchi. CARDIOVASCULAR: Regular rate and rhythm with S1, S2. No S3. ABDOMEN: Soft. EXTREMITIES: No clubbing, cyanosis. Minimal edema. NEUROLOGIC: The patient was sedated. LABORATORY DATA: Reviewed, arterial blood gas. She now has both a metabolic and respiratory alkalosis. White count was normal yesterday. Electrolytes today: Potassium was low. BUN and creatinine elevated. INR yesterday was 1.1. Chest x-ray reviewed. CT chest, abdomen revealed ground glass opacities with some air bronchograms. She has had a small right-sided and left-sided effusion. CT abdomen and pelvis revealed no significant findings. No areas of ischemic bowel. IMPRESSION: 1. Acute hypoxemic respiratory failure, multifactorial. 2. Metabolic acidosis, suspect a combination of renal failure and increased work of breathing and possible sepsis. 3. Hypertensive crisis. 4. Possible sepsis. 5. Abnormal CT revealing bilateral pulmonary infiltrates. 6. Hypokalemia. 7. Hypomagnesemia. 8. Metabolic toxic encephalopathy. 9. Acute infarct, right sided. 10. MRI of the brain revealed acute infarct at the junction of the left greater than right thalamic and posterior limb of the internal capsule and right caudate nucleus. PLAN: 1. We will continue current support with assist control ventilation. 2. IV sodium bicarb per Nephrology. 3. Empiric antibiotics. 4. Repeat CT head. 5. Follow Nephrology and Neurology input. 6. Obtain thyroid function testing. 7. CT abdomen revealed no evidence of ischemic bowel. I do appreciate the privilege in sharing in the patient's care. Total cumulative critical care time of 50 minutes. MICKEY/LACY DR: Tonia TID: [id number]
--- NOTE | 2021-12-31 15:32 | PDOC ---
PROGRESS NOTES DOS: DATE: 12/31/21 TIME: 15:32 Plan 51-year-old woman with multiple medical problems with CVA, Small vessel disease, negative CTA and echocardiogram: acute infarcts at the junctions of the left greater than right thalami and posterior limbs of the internal capsules and the right caudate nucleus, chronic infarcts involving bilateral basal ganglia, bilateral thalami, drea and centrum semiovale, bilateral cerebral white matter changes Doubt embolic phenomenon in these brain locations Hypertension, hyperlipidemia, was not taking medication due to insurance reasons Rectal aspirin until cleared by speech, has been too lethargic to participate with speech therapy High-dose statin when safe to take orally They are agreeable to PEG placement Repeat Patient had areas of infarcts noted in left internal capsule, posterior l imb of right internal capsule, no midline shift or mass-effect noted. Patient is intubated sedated Continue medical management Thank you for allowing me to take part in this patient's care. Please not hesitate to contact me with questions. Transcribed using dictation device. The dictation could contain irregularities inherent in the voice to text conversion software, which may not be detected during the document review process. Please contact our office in case of any confusion or for any clarification, as needed. Subjective Patient is intubated sedated. Objective Vital Signs Date Time Temp Pulse Resp B/P (MAP) Pulse Ox O2 Delivery O2 Flow Rate FiO2 12/31/21 15:00 52 16 125/50 100 Ventilator 12/31/21 12:00 97.7 97.7 12/30/21 08:00 15.0 Intake and Output 12/31/21 07:00 Intake Total 2246.6 ml Output Total 568 ml Balance 1678.6 ml IV Total 2246.6 ml Output Urine Total 568 ml PHYSICAL EXAM PHYSICAL EXAM Patient is intubated sedated. no menigeal signs PERRL. CN: Right central facial weakness. Muscle tone: normal. Muscle strength: 3/5 right hemiparesis more on right side compared to left DTR: 1-2 Plantar reflex: mute Gait: not examined in bed. Sensory exam: no abnormal findings. No cerebellar signs elicited. Review of Relevant I have reviewed the following items chino (where applicable) has been applied. Labs Laboratory Tests Test 12/29/21 18:03 12/29/21 23:19 12/30/21 01:30 12/30/21 02:30 Glucose (Fingerstick) 162 mg/dL (70-99) 211 mg/dL (70-99) O2 Saturation 86 % (92-99) Arterial Blood pH 7.24 (7.35-7.45) Arterial Blood pCO2 at Patient Temp 43 mmHg (35-46) Arterial Blood pO2 at Patient Temp 57 mmHg (75-108) Arterial Blood HCO3 18 mmol/L (21-28) Arterial Blood Base Excess -9 mmol/L (-3-3) FiO2 50 (15l vm) White Blood Count 6.8 x10^3/uL (4.0-11.0) Red Blood Count 4.17 x10^6/uL (3.50-5.40) Hemoglobin 12.0 g/dL (12.0-15.5) Hematocrit 36.4 % (36.0-47.0) Mean Corpuscular Volume 87 fL (79-100) Mean Corpuscular Hemoglobin 29 pg (25-35) Mean Corpuscular Hemoglobin Concent 33 g/dL (31-37) Red Cell Distribution Width 14.6 % (11.5-14.5) Platelet Count 248 x10^3/uL (140-400) Neutrophils (%) (Auto) 80 % (31-73) Lymphocytes (%) (Auto) 11 % (24-48) Monocytes (%) (Auto) 8 % (0-9) Eosinophils (%) (Auto) 0 % (0-3) Basophils (%) (Auto) 1 % (0-3) Neutrophils # (Auto) 5.4 x10^3/uL (1.8-7.7) Lymphocytes # (Auto) 0.8 x10^3/uL (1.0-4.8) Monocytes # (Auto) 0.6 x10^3/uL (0.0-1.1) Eosinophils # (Auto) 0.0 x10^3/uL (0.0-0.7) Basophils # (Auto) 0.1 x10^3/uL (0.0-0.2) Sodium Level 155 mmol/L (136-145) Potassium Level 3.1 mmol/L (3.5-5.1) Chloride Level 120 mmol/L (98-107) Carbon Dioxide Level 20 mmol/L (21-32) Anion Gap 15 (6-14) Blood Urea Nitrogen 22 mg/dL (7-20) Creatinine 1.5 mg/dL (0.6-1.0) Estimated GFR (Cockcroft-Gault) 36.3 Glucose Level 150 mg/dL (70-99) Calcium Level 8.5 mg/dL (8.5-10.1) KX-Xpo-H-Type Natriuretic Peptide 2590 pg/mL (0-124) Test 12/30/21 04:25 12/30/21 08:12 12/30/21 09:44 12/30/21 09:54 Lactic Acid Level 0.8 mmol/L (0.4-2.0) O2 Saturation 92 % (92-99) 94 % (92-99) Arterial Blood pH 7.17 (7.35-7.45) 7.28 (7.35-7.45) Arterial Blood pCO2 at Patient Temp 40 mmHg (35-46) 34 mmHg (35-46) Arterial Blood pO2 at Patient Temp 74 mmHg (75-108) 77 mmHg (75-108) Arterial Blood HCO3 14 mmol/L (21-28) 16 mmol/L (21-28) Arterial Blood Base Excess -14 mmol/L (-3-3) -10 mmol/L (-3-3) FiO2 70% bipap 70/bipap Sodium Level 152 mmol/L (136-145) Potassium Level 4.0 mmol/L (3.5-5.1) Chloride Level 118 mmol/L (98-107) Carbon Dioxide Level 17 mmol/L (21-32) Anion Gap 17 (6-14) Blood Urea Nitrogen 25 mg/dL (7-20) Creatinine 1.6 mg/dL (0.6-1.0) Estimated GFR (Cockcroft-Gault) 33.7 Glucose Level 180 mg/dL (70-99) Calcium Level 8.5 mg/dL (8.5-10.1) Phosphorus Level 4.4 mg/dL (2.6-4.7) Magnesium Level 1.9 mg/dL (1.8-2.4) Thyroid Stimulating Hormone (TSH) 1.230 uIU/mL (0.358-3.74) Free Thyroxine 0.73 ng/dL (0.76-1.46) Test 12/30/21 12:15 12/30/21 16:54 12/30/21 17:51 12/30/21 18:15 Glucose (Fingerstick) 169 mg/dL (70-99) 230 mg/dL (70-99) O2 Saturation 93 % (92-99) Arterial Blood pH 7.30 (7.35-7.45) Arterial Blood pCO2 at Patient Temp 41 mmHg (35-46) Arterial Blood pO2 at Patient Temp 74 mmHg (75-108) Arterial Blood HCO3 20 mmol/L (21-28) Arterial Blood Base Excess -6 mmol/L (-3-3) FiO2 40/bipap Sodium Level 157 mmol/L (136-145) Potassium Level 3.6 mmol/L (3.5-5.1) Chloride Level 118 mmol/L (98-107) Carbon Dioxide Level 22 mmol/L (21-32) Anion Gap 17 (6-14) Blood Urea Nitrogen 28 mg/dL (7-20) Creatinine 1.9 mg/dL (0.6-1.0) Estimated GFR (Cockcroft-Gault) 27.7 Glucose Level 259 mg/dL (70-99) Calcium Level 8.1 mg/dL (8.5-10.1) Test 12/30/21 21:30 12/31/21 00:16 12/31/21 05:20 12/31/21 06:00 O2 Saturation 94 % (92-99) Arterial Blood pH 7.43 (7.35-7.45) Arterial Blood pCO2 at Patient Temp 30 mmHg (35-46) Arterial Blood pO2 at Patient Temp 72 mmHg (75-108) Arterial Blood HCO3 20 mmol/L (21-28) Arterial Blood Base Excess -4 mmol/L (-3-3) FiO2 45 Glucose (Fingerstick) 270 mg/dL (70-99) 184 mg/dL (70-99) Sodium Level 154 mmol/L (136-145) Potassium Level 2.6 mmol/L (3.5-5.1) Chloride Level 117 mmol/L (98-107) Carbon Dioxide Level 26 mmol/L (21-32) Anion Gap 11 (6-14) Blood Urea Nitrogen 32 mg/dL (7-20) Creatinine 2.3 mg/dL (0.6-1.0) Estimated GFR (Cockcroft-Gault) 22.2 Glucose Level 172 mg/dL (70-99) Calcium Level 7.9 mg/dL (8.5-10.1) Phosphorus Level 2.7 mg/dL (2.6-4.7) Magnesium Level 1.7 mg/dL (1.8-2.4) Test 12/31/21 07:20 12/31/21 12:02 O2 Saturation 97 % (92-99) Arterial Blood pH 7.50 (7.35-7.45) Arterial Blood pCO2 at Patient Temp 30 mmHg (35-46) Arterial Blood pO2 at Patient Temp 101 mmHg (75-108) Arterial Blood HCO3 23 mmol/L (21-28) Arterial Blood Base Excess 1 mmol/L (-3-3) FiO2 45/ac 20 400 +5 Glucose (Fingerstick) 80 mg/dL (70-99) Laboratory Tests Test 12/30/21 16:54 12/30/21 17:51 12/30/21 18:15 12/30/21 21:30 Glucose (Fingerstick) 230 mg/dL (70-99) O2 Saturation 93 % (92-99) 94 % (92-99) Arterial Blood pH 7.30 (7.35-7.45) 7.43 (7.35-7.45) Arterial Blood pCO2 at Patient Temp 41 mmHg (35-46) 30 mmHg (35-46) Arterial Blood pO2 at Patient Temp 74 mmHg (75-108) 72 mmHg (75-108) Arterial Blood HCO3 20 mmol/L (21-28) 20 mmol/L (21-28) Arterial Blood Base Excess -6 mmol/L (-3-3) -4 mmol/L (-3-3) FiO2 40/bipap 45 Sodium Level 157 mmol/L (136-145) Potassium Level 3.6 mmol/L (3.5-5.1) Chloride Level 118 mmol/L (98-107) Carbon Dioxide Level 22 mmol/L (21-32) Anion Gap 17 (6-14) Blood Urea Nitrogen 28 mg/dL (7-20) Creatinine 1.9 mg/dL (0.6-1.0) Estimated GFR (Cockcroft-Gault) 27.7 Glucose Level 259 mg/dL (70-99) Calcium Level 8.1 mg/dL (8.5-10.1) Test 12/31/21 00:16 12/31/21 05:20 12/31/21 06:00 12/31/21 07:20 Glucose (Fingerstick) 270 mg/dL (70-99) 184 mg/dL (70-99) Sodium Level 154 mmol/L (136-145) Potassium Level 2.6 mmol/L (3.5-5.1) Chloride Level 117 mmol/L (98-107) Carbon Dioxide Level 26 mmol/L (21-32) Anion Gap 11 (6-14) Blood Urea Nitrogen 32 mg/dL (7-20) Creatinine 2.3 mg/dL (0.6-1.0) Estimated GFR (Cockcroft-Gault) 22.2 Glucose Level 172 mg/dL (70-99) Calcium Level 7.9 mg/dL (8.5-10.1) Phosphorus Level 2.7 mg/dL (2.6-4.7) Magnesium Level 1.7 mg/dL (1.8-2.4) O2 Saturation 97 % (92-99) Arterial Blood pH 7.50 (7.35-7.45) Arterial Blood pCO2 at Patient Temp 30 mmHg (35-46) Arterial Blood pO2 at Patient Temp 101 mmHg (75-108) Arterial Blood HCO3 23 mmol/L (21-28) Arterial Blood Base Excess 1 mmol/L (-3-3) FiO2 45/ac 20 400 +5 Test 12/31/21 12:02 Glucose (Fingerstick) 80 mg/dL (70-99) Microbiology 12/30/21 Blood Culture - Preliminary, Resulted NO GROWTH AFTER 1 DAY Medications Current Medications Hydralazine HCl (Apresoline Inj) 10 mg PRN Q4HRS PRN IVP ELEVATED BP, SEE COMMENTS Last administered on 12/30/21at 18:15; Start 12/24/21 at 20:15 Acetaminophen (Tylenol) 650 mg PRN Q6HRS PRN PO MILD PAIN / TEMP > 100.3'F; Start 12/24/21 at 20:15 Ondansetron HCl (Zofran) 4 mg PRN Q4HRS PRN IVP NAUSEA/VOMITING; Start 12/24/21 at 20:15 Olanzapine (ZyPREXA ZYDIS) 5 mg PRN BID PRN PO ANXIETY / AGITATION Last administered on 12/24/21at 22:49; Start 12/24/21 at 20:15 Bisacodyl (Dulcolax Supp) 10 mg PRN DAILY PRN [place] CONSTIPATION; Start 12/24/21 at 20:15 Nicardipine HCl 50 mg/Sodium Chloride 250 ml @ 25 mls/hr CONT PRN PRN IV PER PROTOCOL Last administered on 12/27/21at 15:42; Start 12/24/21 at 20:15; Stop 12/30/21 at 19:39; Status DC Atorvastatin Calcium (Lipitor) 80 mg QHS PO ; Start 12/24/21 at 21:00 Acetaminophen (Tylenol) 650 mg PRN Q6HRS PRN PO MILD PAIN / TEMP > 100.3'F; Start 12/24/21 at 20:15; Stop 12/24/21 at 20:17; Status DC Bisacodyl (Dulcolax Supp) 10 mg PRN DAILY PRN [place] CONSTIPATION; Start 12/24/21 at 20:15; Status UNV Famotidine (Pepcid Vial) 20 mg BID IVP Last administered on 12/26/21at 08:38; Start 12/24/21 at 21:00; Stop 12/26/21 at 08:51; Status DC Aspirin (Aspirin Rectal Supp) 300 mg PRN DAILY PRN [place] IF UNABLE TO TAKE PO Last administered on 12/29/21at 10:28; Start 12/24/21 at 20:15 Acetaminophen (Tylenol Supp) 650 mg PRN Q6HRS PRN TN MILD PAIN / TEMP > 100.3'F; Start 12/24/21 at 20:15 Insulin Human Lispro (HumaLOG) 0-9 UNITS Q6HRS SQ Last administered on 12/31/21at 06:05; Start 12/25/21 at 00:00 Dextrose (Dextrose 50%-Water Syringe) 12.5 gm PRN Q15MIN PRN IV SEE COMMENTS; Start 12/24/21 at 20:15 Dextrose (Iv Dextrose 5%) 250 ml PRN Q15MIN PRN IV SEE COMMENTS; Start 12/24/21 at 20:15 Potassium Chloride/Water 100 ml @ 100 mls/hr Q1H IV ; Start 12/25/21 at 09:00; Stop 12/25/21 at 10:59; Status UNV Potassium Chloride/Water 100 ml @ 100 mls/hr Q1H IV Last administered on 12/25/21at 13:16; Start 12/25/21 at 09:00; Stop 12/25/21 at 12:59; Status DC Cetirizine HCl (ZyrTEC) 10 mg DAILY PO Last administered on 12/31/21at 09:07; Start 12/25/21 at 10:00 Vitamin D (Vitamin D3) 1,000 unit DAILY PO Last administered on 12/31/21 09:09; Start 12/25/21 at 10:00 Montelukast Sodium (Singulair) 10 mg DAILY PO Last administered on 12/31/21at 09:10; Start 12/25/21 at 10:00 Losartan Potassium (Cozaar) 100 mg DAILY PO ; Start 12/25/21 at 10:00; Stop 12/31/21 at 14:46; Status DC Pantoprazole Sodium (Protonix) 40 mg DAILYAC PO ; Start 12/25/21 at 11:30; Stop 12/29/21 at 12:07; Status DC Lorazepam (Ativan Inj) 2 mg PRN Q4HRS PRN IVP ANXIETY / AGITATION Last administered on 12/29/21at 20:16; Start 12/25/21 at 10:00 Hydrochlorothiazide (Hydrodiuril) 25 mg DAILY PO ; Start 12/25/21 at 10:00; Stop 12/31/21 at 14:47; Status DC Sodium Chloride 1,000 ml @ 50 mls/hr Q20H IV Last administered on 12/29/21at 08:14; Start 12/25/21 at 17:00; Stop 12/30/21 at 10:35; Status DC Famotidine (Pepcid Vial) 20 mg DAILY IVP Last administered on 12/31/21at 09:08; Start 12/27/21 at 09:00 Labetalol HCl (Normodyne Iv Push) 10 mg PRN Q2HR PRN IVP HYPERTENSION (1ST) Last administered on 12/30/21at 15:22; Start 12/26/21 at 13:15 Heparin Sodium (Porcine) (Heparin Sodium) 5,000 unit Q8HRS SQ Last administered on 12/31/21at 14:28; Start 12/26/21 at 14:00 Labetalol HCl (Normodyne Iv Push) 20 mg PRN Q2HR PRN IVP HYPERTENSION (1ST) Last administered on 12/30/21at 17:45; Start 12/26/21 at 13:30 Clonidine HCl (Catapres Tts-2) 1 patch WEEKLY TD Last administered on 12/26/21at 15:13; Start 12/26/21 at 15:00 Nicotine (Nicoderm Cq 21mg) 1 patch DAILY TD Last administered on 12/29/21at 08:16; Start 12/26/21 at 15:00 Nitroglycerin (Nitro-Bid Oint) 1 inch Q6HRS TP Last administered on 12/30/21at 12:54; Start 12/26/21 at 18:00 Enalaprilat (Vasotec Inj) 1.25 mg Q6HRS IVP Last administered on 12/30/21at 12:54; Start 12/28/21 at 12:00; Stop 12/31/21 at 14:47; Status DC Cefazolin Sodium (Ancef) 1 gm 1X ONCE IVP ; Start 01/01/22 at 13:30; Stop 01/01 at 13:31 Albuterol Sulfate (Ventolin Neb Soln) 2.5 mg RTQID NEB Last administered on 12/30/21at 07:30; Start 12/30/21 at 08:00; Stop 12/30/21 at 11:22; Status DC Albuterol Sulfate (Ventolin Neb Soln) 2.5 mg PRN Q4HRS PRN NEB SHORTNESS OF BREATH Last administered on 12/30/21at 01:55; Start 12/30/21 at 02:00 Piperacillin Sod/ Tazobactam Sod (Zosyn Per Pharmacy) 1 each PRN DAILY PRN MC SEE COMMENTS; Start 12/30/21 at 04:30 Potassium Chloride/Water 100 ml @ 100 mls/hr Q1H IV Last administered on 12/30/21at 09:25; Start 12/30/21 at 05:00; Stop 12/30/21 at 08:59; Status DC Piperacillin Sod/ Tazobactam Sod 3.375 gm/Sodium Chloride 50 ml @ 100 mls/hr Q6HRS IV Last administered on 12/31/21at 13:22; Start 12/30/21 at 06:00 Sodium Chloride 1,000 ml @ 75 mls/hr [id number] IV ; Start 12/30/21 at 08:30; Stop 12/30/21 at 11:22; Status DC Sodium Bicarbonate (Sodium Bicarb Adult 8.4% Syr) 50 meq 1X ONCE IV Last administered on 12/30/21at 08:30; Start 12/30/21 at 08:30; Stop 12/30/21 at 08:40; Status DC Albuterol/ Ipratropium (Duoneb) 3 ml RTQID NEB Last administered on 12/31/21at 12:14; Start 12/30/21 at 12:00 Vancomycin HCl (Vanco Per Pharmacy) 1 each PRN DAILY PRN MC SEE COMMENTS Last administered on 12/30/21at 12:57; Start 12/30/21 at 10:30 Sodium Bicarbonate (Sodium Bicarb Adult 8.4% Syr) 50 meq 1X ONCE IV Last administered on 12/30/21at 11:10; Start 12/30/21 at 10:30; Stop 12/30/21 at 1 0:34; Status DC Vancomycin HCl 1.5 gm/Sodium Chloride 500 ml @ 250 mls/hr 1X ONCE IV Last administered on 12/30/21at 10:51; Start 12/30/21 at 11:00; Stop 12/30/21 at 12:59; Status DC Sodium Bicarbonate 150 meq/Dextrose 1,150 ml @ 75 mls/hr [id number] IV Last administered on 12/31/21at 03:04; Start 12/30/21 at 11:00; Stop 12/31/21 at 08:24; Status DC Aspirin (Aspirin Rectal Supp) 300 mg DAILY [place] Last administered on 12/31/21at 09:11; Start 12/30/21 at 11:00 Vancomycin HCl 1 gm/Sodium Chloride 250 ml @ 250 mls/hr Q24H IV Last administered on 12/31/21at 11:19; Start 12/31/21 at 11:00 Vancomycin HCl (Vancomycin Trough Level) 1 each 1X ONCE MC ; Start 01/01/22 at 10:30; Stop 01/01/22 at 10:31 Lactobacillus Rhamnosus (Culturelle) 1 cap BID PO ; Start 12/30/21 at 21:00 Furosemide (Lasix) 40 mg 1X ONCE IVP Last administered on 12/30/21at 18:04; Start 12/30/21 at 17:45; Stop 12/30/21 at 17:46; Status DC Diltiazem HCl 125 mg/Sodium Chloride 125 ml @ 5 mls/hr CONT PRN IV PER PROTOCOL; Start 12/30/21 at 18:15; Stop 12/30/21 at 19:20; Status DC Furosemide (Lasix) 40 mg 1X ONCE IVP Last administered on 12/30/21at 22:24; Start 12/30/21 at 19:30; Stop 12/30/21 at 19:38; Status DC Nicardipine HCl 50 mg/Sodium Chloride 250 ml @ 12.5 mls/hr CONT PRN IV PER PROTOCOL; Start 12/30/21 at 19:30 Succinylcholine Chloride (Anectine) 200 mg STK-MED ONCE .ROUTE ; Start 12/30/21 at 19:49; Stop 12/30/21 at 19:49; Status DC Etomidate (Amidate) 20 mg STK-MED ONCE IV ; Start 12/30/21 at 19:49; Stop 12/30/21 at 19:49; Status DC Fentanyl Citrate 30 ml @ 0 mls/hr CONT PRN IV SEE PROTOCOL Last administered on 12/31/21at 09:17; Start 12/30/21 at 21:30 Midazolam HCl 100 ml @ 1 mls/hr CONT PRN IV SEE PROTOCOL; Start 12/30/21 at 21:30 Propofol 100 ml @ 1.917 mls/ hr CONT PRN IV PER PROTOCOL Last administered on 12/31/21at 06:02; Start 12/30/21 at 21:30 Vecuronium [place] (Norcuron Bolus) 6 mg PRN 1X PRN IV VENT INDUCTION; Start 12/30/21 at 21:30; Stop 12/31/21 at 21:29 Chlorhexidine Gluconate (Peridex) 15 ml BID MM ; Start 12/31/21 at 09:00 Glycerin/ Hypromellose/ Polyethylene (Artificial Tears) 1 drop PRN Q1HR PRN OU DRY EYE; Start 12/30/21 at 21:30 Dexmedetomidine HCl 400 mcg/ Sodium Chloride 100 ml @ 3.195 mls/ hr CONT PRN IV PER PROTOCOL; Start 12/30/21 at 21:30 Midazolam HCl (Versed) 5 mg PRN 1X PRN IVP VENT INDUCTION; Start 12/30/21 at 21:30; Stop 12/31/21 at 21:29 Sodium Chloride 500 ml @ 500 mls/hr 1X PRN PRN IV SEE COMMENTS; Start 12/30/21 at 21:30 Atropine Sulfate (ATROPINE 0.5mg SYRINGE) 0.5 mg PRN Q5MIN PRN IV SEE COMMENTS; Start 12/30/21 at 21:30 Sodium Chloride 1,000 ml @ 75 mls/hr [id number] IV Last administered on 12/31/21at 09:06; Start 12/31/21 at 08:30 Potassium Bicarbonate (Potassium Effervescent Tablet) 40 meq 1X ONCE PEG Last administered on 12/31/21at 09:07; Start 12/31/21 at 08:30; Stop 12/31/21 at 08:31; Status DC Magnesium Sulfate 50 ml @ 25 mls/hr 1X ONCE IV Last administered on 12/31/21at 09:06; Start 12/31/21 at 08:30; Stop 12/31/21 at 10:29; Status DC Active Scripts Active Reported Montelukast Sodium 10 Mg Tablet 1 Tab PO DAILY Stool Softener (Docusate Sodium) 50 Mg Capsule 50 Mg PO BID [place] 5-325 Tablet (Acetaminophen/Hydrocodone Bitart) 1 Each Tablet 1 Tab PO Q4HRS LAST DOSE GIVEN: Lantus Solostar (Insulin Glargine,Hum.rec.anlog) 100 Unit/1 Ml Insuln.pen 21 Unit SQ QHS Culturelle (Lactobacillus Rhamnosus Gg) 1 Each Capsule 1 Each PO DAILY Alive Once Daily Women 50 Plus (Mv-Mn/Folic Acid/Vit K/[id number]) 1 Each Tablet 1 Each PO DAILY [place] 5-325 Tablet (Acetaminophen/Hydrocodone Bitart) 1 Each Tablet 1 Tab PO PRN Q6HRS PRN Tizanidine Hcl 4 Mg Tablet 2 Tab PO TID PRN Proair Hfa Inhaler (Albuterol Sulfate) 8.5 Gm Hfa.aer.ad 1 Puff INH PRN Q6HRS PRN Montelukast Sodium Tablet (Montelukast Sodium) 10 Mg Tablet 1 Tab PO DAILY Losartan-Hctz 100-25 Mg Tab (Losartan/Hydrochlorothiazide) 1 Each Tablet 1 Tab PO DAILY Protonix (Pantoprazole Sodium) 20 Mg Tablet.dr 1 Tab PO DAILY Vitamin D3 (Cholecalciferol (Vitamin D3)) 1,000 Unit Tablet 1 Tab PO DAILY Cetirizine Hcl 10 Mg Tablet 1 Tab PO DAILY Janumet 50-1,000 Mg Tablet (Sitagliptin Phos/Metformin Hcl) 1 Each Tablet 1 Tab PO BID Vitals/I & O Vital Sign - Last 24 Hours 12/30/21 12/30/21 12/30/21 12/30/21 15:59 16:00 17:00 17:42 Temp 97.8 97.8 Pulse 74 90 Resp 30 31 B/P (MAP) 119/63 (81) 100/50 (67) Pulse Ox 97 95 92 96 O2 Delivery BiPAP/CPAP BiPAP/CPAP BiPAP/CPAP BiPAP/CPAP 12/30/21 12/30/21 12/30/21 12/30/21 17:45 18:00 18:00 18:00 Pulse 109 66 66 74 Resp 36 B/P (MAP) 213/123 96/48 97/48 102/50 (67) Pulse Ox 96 O2 Delivery BiPAP/CPAP 12/30/21 12/30/21 12/30/21 12/30/21 18:15 19:00 19:30 20:00 Pulse 92 64 64 Resp 24 24 B/P (MAP) 210/99 96/48 96/48 Pulse Ox 96 97 O2 Delivery BiPAP/CPAP BiPAP/CPAP Mechanical Ventilator 12/30/21 12/30/21 12/30/21 12/30/21 20:00 20:19 20:30 21:00 Temp 98.6 98.6 Pulse 66 58 86 Resp 20 23 28 B/P (MAP) 102/50 120/50 194/78 Pulse Ox 97 100 98 97 O2 Delivery BiPAP/CPAP Ventilator Ventilator Ventilator 12/30/21 12/30/21 12/30/21 12/30/21 21:30 22:00 22:30 23:00 Pulse 74 82 74 90 Resp 25 23 25 23 B/P (MAP) 186/66 176/68 160/58 188/70 Pulse Ox 96 97 93 100 O2 Delivery Ventilator Ventilator Ventilator Ventilator 12/30/21 12/31/21 12/31/21 12/31/21 23:30 00:00 00:04 00:30 Temp 98.7 98.7 Pulse 82 70 66 Resp 24 20 22 B/P (MAP) 174/68 122/52 146/54 Pulse Ox 98 99 98 97 O2 Delivery Ventilator Ventilator Ventilator Ventilator 12/31/21 12/31/21 12/31/21 12/31/21 01:00 01:30 02:00 02:30 Pulse 62 62 72 68 Resp 20 20 23 22 B/P (MAP) 118/48 116/46 128/46 108/42 Pulse Ox 99 99 98 97 O2 Delivery Ventilator Ventilator Ventilator Ventilator 12/31/21 12/31/21 12/31/21 12/31/21 03:00 03:30 04:00 04:12 Temp 98.2 98.2 Pulse 74 72 72 Resp 27 26 24 B/P (MAP) 174/58 172/58 146/54 Pulse Ox 96 98 98 99 O2 Delivery Ventilator Ventilator Ventilator Ventilator 12/31/21 12/31/21 12/31/21 12/31/21 04:30 05:00 05:30 06:00 Pulse 70 66 64 62 Resp 21 22 20 20 B/P (MAP) 142/58 132/50 126/50 138/51 Pulse Ox 99 99 100 100 O2 Delivery Ventilator Ventilator Ventilator Ventilator 12/31/21 12/31/21 12/31/21 12/31/21 07:00 07:30 07:30 08:00 Temp 98.0 98.0 Pulse 72 64 Resp 24 20 B/P (MAP) 171/60 126/49 Pulse Ox 100 100 100 O2 Delivery Ventilator Mechanical Ventilator Ventilator Ventilator 12/31/21 12/31/21 12/31/21 12/31/21 09:00 09:17 09:20 09:47 Pulse 66 Resp 20 21 20 B/P (MAP) 142/64 Pulse Ox 100 100 99 99 O2 Delivery Ventilator Ventilator Ventilator Ventilator 12/31/21 12/31/21 12/31/21 12/31/21 10:00 11:00 12:00 12:15 Temp 97.7 97.7 Pulse 68 66 60 Resp 22 22 20 B/P (MAP) 114/56 110/52 112/54 Pulse Ox 100 100 100 100 O2 Delivery Ventilator Ventilator Ventilator Ventilator 12/31/21 12/31/21 12/31/21 12/31/21 13:00 13:45 14:00 15:00 Pulse 50 49 52 Resp 18 16 16 B/P (MAP) 136/58 107/45 125/50 Pulse Ox 100 96 100 100 O2 Delivery Ventilator Ventilator Ventilator Ventilator Intake and Output 12/30/21 12/30/21 12/31/21 15:00 23:00 07:00 Intake Total 730 ml 325 ml 1191.6 ml Output Total 83 ml 210 ml 275 ml Balance 647 ml 115 ml 916.6 ml Justicifation of Admission Dx: Justifications for Admission: Justification of Admission Dx: Yes Stroke - Ischemic: Stroke-Ischemic DAVID MONTALVO MD Dec 31, 2021 15:32
--- NOTE | 2021-12-31 15:41 | RAD ---
CT Head W/O Contrast: History: Reason: worsening AMS / Spl. Instructions: / History: Comparison: August 29, 2022 Axial images were obtained without contrast. There is moderate diffuse atrophy. There is no mass effect, extraaxial fluid collections or hydrocep halus. There is no gross bleed. Mild, patchy periventricular and subcortical white matter hypoatten uation is seen. 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 There is no focal loss of pearl- white matter distinction to suggest acute ischemia, i.e. stroke. Impression: Atrophy and chronic white matter changes advanced for patient's age. No acute findings. End of impression PQRS Compliance Statement: One or more of the following individualized dose reduction techniques were utilized for this examinat ion: 1. Automated exposure control 2. Adjustment of the mA and/or kV according to patient size 3. Use of iterative reconstruction technique Electronically signed by: Taye Ramon III, MD (12/31/2021 3:39 PM) [facility]
[2021-12-31] MEDS: ATORVASTATIN CALCIUM 40 MG TABLET. PO SCH (21:16)
[2022-01-01] VITALS (24 sets, daily range): BP systolic 118–172; BP diastolic 52–84
[2022-01-01] MEDS: PIPERACILLIN/TAZOBACTAM 3.375 GM in IV NORMAL SALINE 50ML 50 ML IV SCH ×4 (00:17→17:54)
[2022-01-01] MEDS: NITROGLYCERIN OINT 1 GM PACKET. TP SCH ×4 (00:17→17:32)
[2022-01-01] MEDS: IV 1/2 NORMAL SALINE 1,000 ML IV SCH (04:01)
[2022-01-01] MEDS: HEPARIN for SUB-Q USE 5,000 UNIT/ML VIAL. SQ SCH ×2 (05:59→14:00)
[2022-01-01] MEDS: INSULIN LISPRO 300 UNITS/3 ML VIAL. SQ SCH ×4 (06:00→17:32)
[2022-01-01 06:28] LABS: CALCIUM 7.4 mg/dL (8.5-10.1); CREATININE 2.4 mg/dL (0.6-1.0); GFR 21.1; MAGNESIUM 2.3 mg/dL (1.8-2.4); POTASSIUM 3.1 mmol/L (3.5-5.1)
[2022-01-01 07:48] LABS: BASE EXCESS ABG 2 mmol/L (-3-3); HCO3 ABG 26 mmol/L (21-28); PCO2 ABG 36 mmHg (35-46); PO2 ABG 88 mmHg (75-108); SAT O2 ABG 96 % (92-99)
[2022-01-01] MEDS: IPRATRPIUM/ALBUTEROL 0.5/2.5MG 3 ML NEBU. NEB SCH ×4 (07:55→20:35)
[2022-01-01] MEDS: CHLORHEXIDINE 0.12% 15 ML MOUTHWASH. MM SCH ×2 (09:00→21:03)
[2022-01-01] MEDS: CHOLECALCIFEROL (VITAMIN D3) 1,000 UNIT TABLET PO SCH (09:00)
[2022-01-01] MEDS: CETIRIZINE HCL 10 MG TABLET. PO SCH (09:00)
[2022-01-01] MEDS: NICOTINE 21MG PATCH. TD SCH (09:00)
[2022-01-01] MEDS: LACTOBACILLUS RHAMNOSUS GG 1 CAPSULE. PO SCH ×2 (09:00→21:00)
--- NOTE | 2022-01-01 09:01 | PDOC ---
Date of Service: DATE: 01/01/22 TIME: 08:55 Objective: Objective: AMS, transferred to ICU, intubated., started on OG feeds, getting Heparin. Nurse d/w prior to intubation - wants aggressive care. Vital Signs: Vital Signs Date Time Temp Pulse Resp B/P (MAP) Pulse Ox O2 Delivery O2 Flow Rate FiO2 01/01/22 08:19 100 Ventilator 01/01/22 06:00 76 17 158/60 01/01/22 04:00 99.8 99.8 Labs: Laboratory Tests Test 12/31/21 12:02 12/31/21 17:44 12/31/21 23:37 01/01/22 05:45 Glucose (Fingerstick) 80 mg/dL 122 mg/dL 142 mg/dL Sodium Level 154 mmol/L Potassium Level 3.1 mmol/L Chloride Level 116 mmol/L Carbon Dioxide Level 27 mmol/L Anion Gap 11 Blood Urea Nitrogen 34 mg/dL Creatinine 2.4 mg/dL Estimated GFR (Cockcroft-Gault) 21.1 Glucose Level 188 mg/dL Calcium Level 7.4 mg/dL Magnesium Level 2.3 mg/dL Test 01/01/22 05:57 Glucose (Fingerstick) 178 mg/dL BLOOD CULTURE Preliminary NO GROWTH AFTER 1 DAY Imaging: CXR 12/30 FINDINGS: Enteric tube traverses below the diaphragm distal extent not visualized likely within stomach. The cardiomediastinal silhouette and pulmonary vessels are within normal limits. Hazy bibasilar airspace disease. No pleural effusion. IMPRESSION: Lines and tubes as described above. PE: GEN: intubated LUNGS: clear/vent HEART: RR ABD: soft, tube feeds @ 30cc/hr NEURO/PSYCH: sedated A/P: S/p CVA AMS/resp failure - intubated -- I spoke w/ pt's Oscar this morning - possible risks discussed, he's aware PEG unlikely to change long-term outcome - he remains concerned that she hasn't had anything on her stomach for awhile and wants to proceed w/ PEG placement. D/w ICU nursing - hold OG feeds and Heparin now, proceed w/ PEG this afternoon. Justicifation of Admission Dx: Justifications for Admission: Justification of Admission Dx: Yes Stroke - Ischemic: Stroke-Ischemic SHANICE RAE Jan 01, 2022 09:01
[2022-01-01 09:03] LABS: FIO2 ABG 35
[2022-01-01] MEDS: FAMOTIDINE 20 MG/2 ML VIAL IVP SCH (09:09)
[2022-01-01] MEDS: MONTELUKAST SODIUM 10 MG TABLET. PO SCH (09:11)
[2022-01-01] MEDS: ASPIRIN RECTAL 300 MG SUPP. PR SCH (09:12)
--- NOTE | 2022-01-01 09:14 | PDOC ---
PULMONARY PROGRESS NOTES DATE: 01/01/22 TIME: 09:14 Subjective Sedated, assist-control ventilation Vitals Vital Signs Date Time Temp Pulse Resp B/P (MAP) Pulse Ox O2 Delivery O2 Flow Rate FiO2 01/01/22 08:19 100 Ventilator 01/01/22 06:00 76 17 158/60 01/01/22 04:00 99.8 99.8 Comments Patient is unable to perform review of systems secondary to current clinical state General: Lethargic Lungs: Crackles, Other (decreased base ) Extremities: Other (trace BLE and BUE ) Skin: Warm, Dry Labs Laboratory Tests Test 12/30/21 09:44 12/30/21 09:54 12/30/21 12:15 12/30/21 16:54 O2 Saturation 94 % (92-99) Arterial Blood pH 7.28 (7.35-7.45) Arterial Blood pCO2 at Patient Temp 34 mmHg (35-46) Arterial Blood pO2 at Patient Temp 77 mmHg (75-108) Arterial Blood HCO3 16 mmol/L (21-28) Arterial Blood Base Excess -10 mmol/L (-3-3) FiO2 70/bipap Sodium Level 152 mmol/L (136-145) Potassium Level 4.0 mmol/L (3.5-5.1) Chloride Level 118 mmol/L (98-107) Carbon Dioxide Level 17 mmol/L (21-32) Anion Gap 17 (6-14) Blood Urea Nitrogen 25 mg/dL (7-20) Creatinine 1.6 mg/dL (0.6-1.0) Estimated GFR (Cockcroft-Gault) 33.7 Glucose Level 180 mg/dL (70-99) Calcium Level 8.5 mg/dL (8.5-10.1) Phosphorus Level 4.4 mg/dL (2.6-4.7) Magnesium Level 1.9 mg/dL (1.8-2.4) Thyroid Stimulating Hormone (TSH) 1.230 uIU/mL (0.358-3.74) Free Thyroxine 0.73 ng/dL (0.76-1.46) Glucose (Fingerstick) 169 mg/dL (70-99) 230 mg/dL (70-99) Test 12/30/21 17:51 12/30/21 18:15 12/30/21 21:30 12/31/21 00:16 O2 Saturation 93 % (92-99) 94 % (92-99) Arterial Blood pH 7.30 (7.35-7.45) 7.43 (7.35-7.45) Arterial Blood pCO2 at Patient Temp 41 mmHg (35-46) 30 mmHg (35-46) Arterial Blood pO2 at Patient Temp 74 mmHg (75-108) 72 mmHg (75-108) Arterial Blood HCO3 20 mmol/L (21-28) 20 mmol/L (21-28) Arterial Blood Base Excess -6 mmol/L (-3-3) -4 mmol/L (-3-3) FiO2 40/bipap 45 Sodium Level 157 mmol/L (136-145) Potassium Level 3.6 mmol/L (3.5-5.1) Chloride Level 118 mmol/L (98-107) Carbon Dioxide Level 22 mmol/L (21-32) Anion Gap 17 (6-14) Blood Urea Nitrogen 28 mg/dL (7-20) Creatinine 1.9 mg/dL (0.6-1.0) Estimated GFR (Cockcroft-Gault) 27.7 Glucose Level 259 mg/dL (70-99) Calcium Level 8.1 mg/dL (8.5-10.1) Glucose (Fingerstick) 270 mg/dL (70-99) Test 12/31/21 05:20 12/31/21 06:00 12/31/21 07:20 12/31/21 12:02 Sodium Level 154 mmol/L (136-145) Potassium Level 2.6 mmol/L (3.5-5.1) Chloride Level 117 mmol/L (98-107) Carbon Dioxide Level 26 mmol/L (21-32) Anion Gap 11 (6-14) Blood Urea Nitrogen 32 mg/dL (7-20) Creatinine 2.3 mg/dL (0.6-1.0) Estimated GFR (Cockcroft-Gault) 22.2 Glucose Level 172 mg/dL (70-99) Calcium Level 7.9 mg/dL (8.5-10.1) Phosphorus Level 2.7 mg/dL (2.6-4.7) Magnesium Level 1.7 mg/dL (1.8-2.4) Glucose (Fingerstick) 184 mg/dL (70-99) 80 mg/dL (70-99) O2 Saturation 97 % (92-99) Arterial Blood pH 7.50 (7.35-7.45) Arterial Blood pCO2 at Patient Temp 30 mmHg (35-46) Arterial Blood pO2 at Patient Temp 101 mmHg (75-108) Arterial Blood HCO3 23 mmol/L (21-28) Arterial Blood Base Excess 1 mmol/L (-3-3) FiO2 45/ac 20 400 +5 Test 12/31/21 17:44 12/31/21 23:37 01/01/22 05:45 01/01/22 05:57 Glucose (Fingerstick) 122 mg/dL (70-99) 142 mg/dL (70-99) 178 mg/dL (70-99) Sodium Level 154 mmol/L (136-145) Potassium Level 3.1 mmol/L (3.5-5.1) Chloride Level 116 mmol/L (98-107) Carbon Dioxide Level 27 mmol/L (21-32) Anion Gap 11 (6-14) Blood Urea Nitrogen 34 mg/dL (7-20) Creatinine 2.4 mg/dL (0.6-1.0) Estimated GFR (Cockcroft-Gault) 21.1 Glucose Level 188 mg/dL (70-99) Calcium Level 7.4 mg/dL (8.5-10.1) Magnesium Level 2.3 mg/dL (1.8-2.4) Test 01/01/22 07:45 O2 Saturation 96 % (92-99) Arterial Blood pH 7.47 (7.35-7.45) Arterial Blood pCO2 at Patient Temp 36 mmHg (35-46) Arterial Blood pO2 at Patient Temp 88 mmHg (75-108) Arterial Blood HCO3 26 mmol/L (21-28) Arterial Blood Base Excess 2 mmol/L (-3-3) FiO2 35 Laboratory Tests Test 12/31/21 12:02 12/31/21 17:44 12/31/21 23:37 01/01/22 05:45 Glucose (Fingerstick) 80 mg/dL (70-99) 122 mg/dL (70-99) 142 mg/dL (70-99) Sodium Level 154 mmol/L (136-145) Potassium Level 3.1 mmol/L (3.5-5.1) Chloride Level 116 mmol/L (98-107) Carbon Dioxide Level 27 mmol/L (21-32) Anion Gap 11 (6-14) Blood Urea Nitrogen 34 mg/dL (7-20) Creatinine 2.4 mg/dL (0.6-1.0) Estimated GFR (Cockcroft-Gault) 21.1 Glucose Level 188 mg/dL (70-99) Calcium Level 7.4 mg/dL (8.5-10.1) Magnesium Level 2.3 mg/dL (1.8-2.4) Test 01/01/22 05:57 01/01/22 07:45 Glucose (Fingerstick) 178 mg/dL (70-99) O2 Saturation 96 % (92-99) Arterial Blood pH 7.47 (7.35-7.45) Arterial Blood pCO2 at Patient Temp 36 mmHg (35-46) Arterial Blood pO2 at Patient Temp 88 mmHg (75-108) Arterial Blood HCO3 26 mmol/L (21-28) Arterial Blood Base Excess 2 mmol/L (-3-3) FiO2 35 Medications Active Scripts Medications Dose Route/Sig Max Daily Dose Days Date Category Dose Instructions Montelukast Sodium 10 Mg Tablet 1 Tab PO DAILY 12/24/21 Reported Stool Softener (Docusate Sodium) 50 Mg Capsule 50 Mg PO BID 06/02/19 Reported [place] 5-325 Tablet (Acetaminophen/Hydrocodone Bitart) 1 Each Tablet 1 Tab PO Q4HRS 06/02/19 Reported LAST DOSE GIVEN: Lantus Solostar (Insulin Glargine,Hum.rec.anlog) 100 Unit/1 Ml Insuln.pen 21 Unit SQ QHS 06/02/19 Reported Culturelle (Lactobacillus Rhamnosus Gg) 1 Each Capsule 1 Each PO DAILY 06/01/19 Reported Alive Once Daily Women 50 Plus (Mv-Mn/Folic Acid/Vit K/[id number]) 1 Each Tablet 1 Each PO DAILY 06/01/19 Reported [place] 5-325 Tablet (Acetaminophen/Hydrocodone Bitart) 1 Each Tablet 1 Tab PO PRN Q6HRS PRN 06/01/19 Reported Tizanidine Hcl 4 Mg Tablet 2 Tab PO TID PRN 06/01/19 Reported Proair Hfa Inhaler (Albuterol Sulfate) 8.5 Gm Hfa.aer.ad 1 Puff INH PRN Q6HRS PRN 01/19/19 Reported Montelukast Sodium Tablet (Montelukast Sodium) 10 Mg Tablet 1 Tab PO DAILY 01/19/19 Reported Losartan-Hctz 100-25 Mg Tab (Losartan/Hydrochlorothiazide) 1 Each Tablet 1 Tab PO DAILY 01/19/19 Reported Protonix (Pantoprazole Sodium) 20 Mg Tablet.dr 1 Tab PO DAILY 01/19/19 Reported Vitamin D3 (Cholecalciferol (Vitamin D3)) 1,000 Unit Tablet 1 Tab PO DAILY 01/19/19 Reported Cetirizine Hcl 10 Mg Tablet 1 Tab PO DAILY 01/19/19 Reported Janumet 50-1,000 Mg Tablet (Sitagliptin Phos/Metformin Hcl) 1 Each Tablet 1 Tab PO BID 01/19/19 Reported Impression . Acute hypoxemic respiratory failure multifactorial metabolic encephalopathy Acute kidney injury, per nephrology Possible sepsis Hypomagnesemia hypokalemia Uncontrolled hypertension Severe metabolic acidosis CVA--positive MRI 12/25/2021, see MRI report COPD Thyroid disorder Plan . Updated 01/01 Discussed with RN and RT Patient does assist the ventilator, she does not have a cough Possible repeat CT head CT abdomen no evidence of ischemia Continue empiric antibiotics Overall prognosis is poor Discussion: Patient was a rapid response overnight 12/29/2021 for altered mental status/hypoxia, and initial work-up appeared benign, patient was placed on BiPAP, ABG revealed metabolic acidosis. Patient had ongoing metabolic acidosis and worsening mental status and hypoxia and was transferred to the intensive care unit this morning 12/30/2021 approximately 9:30 AM. PLAN 12/30/21: Continue current support with BiPAP, follow ABG/chest x-ray, repeat ABG reviewed, with improvement in acidosis Will wean FiO2 to keep sats greater than 90% We will proceed with a CT of head for new/worsening unresponsiveness, and follow neurology recommendations, patient recently diagnosed with new onset CVA with positive MRI 12/25/2021, see MRI report Metabolic acidosis/acute kidney injury, will consult nephrology for further recommendations, placed on bicarb drip, Berumen catheter for accurate intake and output Continue hypertensive medications for underlying hypertension Concern for early sepsis, start empiric antibiotics with vancomycin and Zosyn, follow cultures, treat accordingly and follow clinical course, consider infectious disease consultation if not improved Discern for thyroid disorder, pending cortisol, ESR, TSH and free T4, other work-up per primary care Rule out ischemic bowel/other intra-abdominal process, pending CT abdomen and pelvis DVT/GI prophylaxis CODE STATUS full Critical care time 65 minutes, reviewing diagnostics, laboratory data, patient assessment, and reviewing with the care team. VAIBHAV PARIKH MD Jan 01, 2022 09:14
--- NOTE | 2022-01-01 09:22 | PDOC ---
DATE OF SERVICE DATE: 01/01/22 TIME: 09:14 SUBJECTIVE ROS Remains Intubated OBJECTIVE Vital Signs Vital Signs Date Time Temp Pulse Resp B/P (MAP) Pulse Ox O2 Delivery O2 Flow Rate FiO2 01/01/22 08:19 100 Ventilator 01/01/22 06:00 76 17 158/60 01/01/22 04:00 99.8 99.8 I & 0 Intake and Output 01/01/22 07:00 Intake Total 3611.36 ml Output Total 455 ml Balance 3156.36 ml IV Total 2092.36 ml Tube Feeding 1519 ml Output Urine Total 455 ml Gastric Drainage Total 0 ml PHYSICAL EXAM Physical Exam General Appearance: Intubated HEEN ETT + Skin: warm, No rash Respiratory: bilateral CTA ant Heart: S1S2 Abdomen: soft, bowel sounds present Genitourinary: Berumen Extremities: No LE edema , No cyanosis Neurology: sedated DIAGNOSIS/ASSESSMENT Assessment & Plan MICHELET - - Creat trended up since admission , 1.7-->2.4 Decline in , currently marginal , no response to IV lasix x 2 , . No emergent indication for dialysis , re-evaluate in morning Supportive care, avoid Nephrotoxins . On Vancomycin, levels pending (drawn today ) HyperNatremia - Was on IV bicarb, dced . Currently on 11/19 NS Recommend switch to IV Hypotonic fluid . Was getting TF with water flushes - held as NPO for PEG placement HypoKalemia Replace HypOmagnesemia - normal Mg ? CKD stage 3 Creat 2,1 in 2019 x 1 , No interval labs CVA HTN- [employer] elevated . Primary managing DM II- primary managing Discussed with RN COMMENT/RELEVANT DATA Meds Current Medications Medications (Trade) Dose Ordered Sig/Fabio Start Time Stop Time Status Last Admin Dose Admin Acetaminophen (Tylenol Supp) 650 mg PRN Q6HRS PRN 12/24/21 20:15 Acetaminophen (Tylenol) 650 mg PRN Q6HRS PRN 12/24/21 20:15 12/24/21 20:17 DC Albuterol Sulfate (Ventolin Neb Soln) 2.5 mg PRN Q4HRS PRN 12/30/21 02:00 12/30/21 01:55 2.5 MG Albuterol/ Ipratropium (Duoneb) 3 ml RTQID 12/30/21 12:00 01/01/22 07:55 3 ML Aspirin (Aspirin Rectal Supp) 300 mg DAILY 12/30/21 11:00 12/31/21 09:11 300 MG Atorvastatin Calcium (Lipitor) 80 mg QHS 12/24/21 21:00 12/31/21 21:16 80 MG Atropine Sulfate (ATROPINE 0.5mg SYRINGE) 0.5 mg PRN Q5MIN PRN 12/30/21 21:30 Bisacodyl (Dulcolax Supp) 10 mg PRN DAILY PRN 12/24/21 20:15 UNV Cefazolin Sodium (Ancef) 1 gm 1X ONCE 01/01/22 13:30 01/01/22 08:01 DC Cetirizine HCl (ZyrTEC) 10 mg DAILY 12/25/21 10:00 12/31/21 09:07 10 MG Chlorhexidine Gluconate (Peridex) 15 ml BID 12/31/21 09:00 12/31/21 21:16 15 ML Clonidine HCl (Catapres Tts-2) 1 patch WEEKLY 12/26/21 15:00 12/26/21 15:13 1 PATCH Dexmedetomidine HCl 400 mcg/ Sodium Chloride 100 ml @ 3.195 mls/ hr CONT PRN 12/30/21 21:30 Dextrose (Dextrose 50%-Water Syringe) 12.5 gm PRN Q15MIN PRN 12/24/21 20:15 Dextrose (Iv Dextrose 5%) 250 ml PRN Q15MIN PRN 12/24/21 20:15 Diltiazem HCl 125 mg/Sodium Chloride 125 ml @ 5 mls/hr CONT PRN 12/30/21 18:15 12/30/21 19:20 DC Enalaprilat (Vasotec Inj) 1.25 mg Q6HRS 12/28/21 12:00 12/31/21 14:47 DC 12/30/21 12:54 1.25 MG Etomidate (Amidate) 20 mg STK-MED ONCE 12/30/21 19:49 12/30/21 19:49 DC Famotidine (Pepcid Vial) 20 mg DAILY 12/27/21 09:00 01/01/22 09:09 20 MG Fentanyl Citrate 30 ml @ 0 mls/hr CONT PRN 12/30/21 21:30 01/01/22 04:02 1.25 MLS/HR Furosemide (Lasix) 40 mg 1X ONCE 12/30/21 19:30 12/30/21 19:38 DC 12/30/21 22:24 40 MG Glycerin/ Hypromellose/ Polyethylene (Artificial Tears) 1 drop PRN Q1HR PRN 12/30/21 21:30 Heparin Sodium (Porcine) (Heparin Sodium) 5,000 unit Q8HRS 12/26/21 14:00 01/01/22 05:59 5,000 UNIT Hydralazine HCl (Apresoline Inj) 10 mg PRN Q4HRS PRN 12/24/21 20:15 12/30/21 18:15 10 MG Hydrochlorothiazide (Hydrodiuril) 25 mg DAILY 12/25/21 10:00 12/31/21 14:47 DC Insulin Human Lispro (HumaLOG) 0-9 UNITS Q6HRS 12/25/21 00:00 01/01/22 06:00 4 UNITS Labetalol HCl (Normodyne Iv Push) 20 mg PRN Q2HR PRN 12/26/21 13:30 12/30/21 17:45 20 MG Lactobacillus Rhamnosus (Culturelle) 1 cap BID 12/30/21 21:00 Lorazepam (Ativan Inj) 2 mg PRN Q4HRS PRN 12/25/21 10:00 12/29/21 20:16 2 MG Losartan Potassium (Cozaar) 100 mg DAILY 12/25/21 10:00 12/31/21 14:46 DC Magnesium Sulfate 50 ml @ 25 mls/hr 1X ONCE 12/31/21 08:30 12/31/21 10:29 DC 12/31/21 09:06 25 MLS/HR Midazolam HCl (Versed) 5 mg PRN 1X PRN 12/30/21 21:30 12/31/21 21:29 DC Montelukast Sodium (Singulair) 10 mg DAILY 12/25/21 10:00 12/31/21 09:10 10 MG Nicardipine HCl 50 mg/Sodium Chloride 250 ml @ 12.5 mls/hr CONT PRN 12/30/21 19:30 Nicotine (Nicoderm Cq 21mg) 1 patch DAILY 12/26/21 15:00 12/29/21 08:16 1 PATCH Nitroglycerin (Nitro-Bid Oint) 1 inch Q6HRS 12/26/21 18:00 01/01/22 06:00 1 INCH Olanzapine (ZyPREXA ZYDIS) 5 mg PRN BID PRN 12/24/21 20:15 12/24/21 22:49 5 MG Ondansetron HCl (Zofran) 4 mg PRN Q4HRS PRN 12/24/21 20:15 Pantoprazole Sodium (Protonix) 40 mg DAILYAC 12/25/21 11:30 12/29/21 12:07 DC Piperacillin Sod/ Tazobactam Sod (Zosyn Per Pharmacy) 1 each PRN DAILY PRN 12/30/21 04:30 Piperacillin Sod/ Tazobactam Sod 3.375 gm/Sodium Chloride 50 ml @ 100 mls/hr Q6HRS 12/30/21 06:00 01/01/22 05:59 100 MLS/HR Potassium Bicarbonate (Potassium Effervescent Tablet) 40 meq 1X ONCE 12/31/21 08:30 12/31/21 08:31 DC 12/31/21 09:07 40 MEQ Potassium Chloride/Water 100 ml @ 100 mls/hr Q1H 12/30/21 05:00 12/30/21 08:59 DC 12/30/21 09:25 100 MLS/HR Propofol 100 ml @ 1.917 mls/ hr CONT PRN 12/30/21 21:30 12/31/21 16:40 3.834 MLS/HR Sodium Bicarbonate 150 meq/Dextrose 1,150 ml @ 75 mls/hr [id number] 12/30/21 11:00 12/31/21 08:24 DC 12/31/21 03:04 75 MLS/HR Sodium Bicarbonate (Sodium Bicarb Adult 8.4% Syr) 50 meq 1X ONCE 12/30/21 10:30 12/30/21 10:34 DC 12/30/21 11:10 50 MEQ Sodium Chloride 1,000 ml @ 75 mls/hr [id number] 12/31/21 08:30 01/01/22 04:01 75 MLS/HR Succinylcholine Chloride (Anectine) 200 mg STK-MED ONCE 12/30/21 19:49 12/30/21 19:49 DC Vancomycin HCl (Vanco Per Pharmacy) 1 each PRN DAILY PRN 12/30/21 10:30 12/30/21 12:57 1 EACH Vancomycin HCl (Vancomycin Trough Level) 1 each 1X ONCE 01/01/22 10:30 01/01/22 10:31 Vancomycin HCl 1.5 gm/Sodium Chloride 500 ml @ 250 mls/hr 1X ONCE 12/30/21 11:00 12/30/21 12:59 DC 12/30/21 10:51 250 MLS/HR Vancomycin HCl 1 gm/Sodium Chloride 250 ml @ 250 mls/hr Q24H 12/31/21 11:00 12/31/21 11:19 250 MLS/HR Vecuronium [place] (Norcuron Bolus) 6 mg PRN 1X PRN 12/30/21 21:30 12/31/21 21:29 DC Vitamin D (Vitamin D3) 1,000 unit DAILY 12/25/21 10:00 12/31/21 09:09 1,000 UNIT Lab Laboratory Tests Test 12/31/21 12:02 12/31/21 17:44 12/31/21 23:37 01/01/22 05:45 Glucose (Fingerstick) 80 mg/dL (70-99) 122 mg/dL (70-99) 142 mg/dL (70-99) Sodium Level 154 mmol/L (136-145) Potassium Level 3.1 mmol/L (3.5-5.1) Chloride Level 116 mmol/L (98-107) Carbon Dioxide Level 27 mmol/L (21-32) Anion Gap 11 (6-14) Blood Urea Nitrogen 34 mg/dL (7-20) Creatinine 2.4 mg/dL (0.6-1.0) Estimated GFR (Cockcroft-Gault) 21.1 Glucose Level 188 mg/dL (70-99) Calcium Level 7.4 mg/dL (8.5-10.1) Magnesium Level 2.3 mg/dL (1.8-2.4) Test 01/01/22 05:57 01/01/22 07:45 Glucose (Fingerstick) 178 mg/dL (70-99) O2 Saturation 96 % (92-99) Arterial Blood pH 7.47 (7.35-7.45) Arterial Blood pCO2 at Patient Temp 36 mmHg (35-46) Arterial Blood pO2 at Patient Temp 88 mmHg (75-108) Arterial Blood HCO3 26 mmol/L (21-28) Arterial Blood Base Excess 2 mmol/L (-3-3) FiO2 35 Results All relevant outside records, renal labs, imaging studies, telemetry/EKG's were reviewed. Justicifation of Admission Dx: Justifications for Admission: Justification of Admission Dx: Yes Stroke - Ischemic: Stroke-Ischemic VIKA WEST MD Jan 01, 2022 09:22
[2022-01-01 10:41] LABS: HEMATOCRIT 25.7 % (36.0-47.0); HEMOGLOBIN 8.6 g/dL (12.0-15.5); RED BLOOD COUNT 2.96 x10^6/uL (3.50-5.40); RED CELL DISTRIBUTION WIDTH 14.6 % (11.5-14.5)
[2022-01-01 10:51] LABS: VANC TR 27.4 mcg/mL (10.0-20.0)
[2022-01-01 11:08] LABS: PROTHROMBIN TIME PATIENT 12.8 SEC (11.7-14.0)
--- NOTE | 2022-01-01 11:38 | PDOC ---
[employer] PROGRESS NOTE Date of Service DOS: DATE: 01/01/22 TIME: 11:33 Chief Complaint Chief Complaint Expressive aphasia unilateral weakness secondary to 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 Acute respiratory failure requiring BiPAP support Concern for early sepsis Dehydration Metabolic acidosis Acute electrolyte derangement, hypernatremia and hyperchloremia-possible dehydration History hypertension History of diabetes diabetes History of Present Illness History of Present Illness 01/01/2022 Patient seen and examined in the ICU She remains on the vent AC/16/400/30 5% with 5 of PEEP Art line in place Sedated with propofol and fentanyl Has half-normal saline hanging with Zosyn Berumen to bedside drainage Chart reviewed Discussed with RN 12/31 Patient evaluated examined at bedside. She required intubation overnight and is currently intubated and sedated. Patient was intubated after family decided on continuing full treatment measures. Blood pressure improved. When seen patient unresponsive no withdrawal to pain. Pupils do still have reflex. Continue current. Nephrology pulmonology following. 45 minutes critical care time 12/30/2021 Rapid response called last night for desaturations down to the 70s. Labs were obtained showing hypernatremia. Patient still unresponsive and placed on BiPAP. ABG showed 7.1 //14. Concern for aspiration, worsening of stroke, or dehydration. Nephrology and pulmonology consulted. Patient transferred to the ICU. Empiric IV antibiotics are started and blood cultures are obtained. D5 bicarb drip started. Patient's chart, labs, images were reviewed and discussed with RN 12/29/21 No acute events overnight. Patient seen examined bedside. Sleeping in bed and unable to be arousable with sternal rub or to voice. Patient unable to follow through with speech evaluation. Will need to consider TPN for nutrition. Medicaid application pending. Patient's chart, labs, images were reviewed and discussed with RN 12/28 Patient evaluated examined at bedside. She was sleeping in bed unable to get her to open her eyes even with sternal rub. Some withdrawal to pain in the right lower extremity none in right upper extremity. Unable to follow commands to see if she could hold her arm against gravity. Still having some trouble controlling blood pressure is still on Cardene drip for now. Will schedule Vasotec and try to start weaning off the Cardene drip. 12/27 Evaluated and examined at bedside. She was resting in bed not easily awoken and still cannot provide me really with any history given her aphasic state. She did have some withdrawal to pain in the right lower extremity still no movement and right upper. PT OT. Neuro following. Plan discussed bedside RN. 12/26 Evaluated and examined at bedside. Is a bit lethargic today difficulty staying awake this morning. MRI showing acute infarcts. Neurology continues to follow. Patient remains aphasic. Therapy modalities. Blood pressure control with IV until able to take oral Okay to transfer out of ICU to CVC if bed is needed Vitals/I&O Vitals/I&O: Vital Signs Date Time Temp Pulse Resp B/P (MAP) Pulse Ox O2 Delivery O2 Flow Rate FiO2 01/01/22 11:26 100 Ventilator 01/01/22 11:00 66 17 125/58 01/01/22 08:00 98.2 98.2 I & O 12/31/21 12/31/21 01/01/22 15:00 23:00 07:00 Intake Total 799 ml 1018 ml 1794.36 ml Output Total 220 ml 95 ml 140 ml Balance 579 ml 923 ml 1654.36 ml Physical Exam General: mild distress Heart: Regular rate Lungs: Crackles, Other (decreased base ) Abdomen: Normal bowel sounds Extremities: No clubbing Skin: No breakdown Labs Labs: Laboratory Tests Test 12/31/21 12:02 12/31/21 17:44 12/31/21 23:37 01/01/22 05:45 Glucose (Fingerstick) 80 mg/dL (70-99) 122 mg/dL (70-99) 142 mg/dL (70-99) Sodium Level 154 mmol/L (136-145) Potassium Level 3.1 mmol/L (3.5-5.1) Chloride Level 116 mmol/L (98-107) Carbon Dioxide Level 27 mmol/L (21-32) Anion Gap 11 (6-14) Blood Urea Nitrogen 34 mg/dL (7-20) Creatinine 2.4 mg/dL (0.6-1.0) Estimated GFR (Cockcroft-Gault) 21.1 Glucose Level 188 mg/dL (70-99) Calcium Level 7.4 mg/dL (8.5-10.1) Magnesium Level 2.3 mg/dL (1.8-2.4) Test 01/01/22 05:57 01/01/22 07:45 01/01/22 10:05 Glucose (Fingerstick) 178 mg/dL (70-99) O2 Saturation 96 % (92-99) Arterial Blood pH 7.47 (7.35-7.45) Arterial Blood pCO2 at Patient Temp 36 mmHg (35-46) Arterial Blood pO2 at Patient Temp 88 mmHg (75-108) Arterial Blood HCO3 26 mmol/L (21-28) Arterial Blood Base Excess 2 mmol/L (-3-3) FiO2 35 White Blood Count 7.0 x10^3/uL (4.0-11.0) Red Blood Count 2.96 x10^6/uL (3.50-5.40) Hemoglobin 8.6 g/dL (12.0-15.5) Hematocrit 25.7 % (36.0-47.0) Mean Corpuscular Volume 87 fL (79-100) Mean Corpuscular Hemoglobin 29 pg (25-35) Mean Corpuscular Hemoglobin Concent 33 g/dL (31-37) Red Cell Distribution Width 14.6 % (11.5-14.5) Platelet Count 150 x10^3/uL (140-400) Prothrombin Time 12.8 SEC (11.7-14.0) Prothromb Time International Ratio 1.0 (0.8-1.1) Vancomycin Level Trough 27.4 mcg/mL (10.0-20.0) Vancomycin Last Dose Date 12/31/21 Vancomycin Last Dose Time 1100 Assessment and Plan Assessmemt and Plan Stroke Respiratory failure Expressive aphasia unilateral weakness secondary to 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 Sepsis Dehydration Hyponatremia Hypokalemia Hypomagnesemia Metabolic acidosis Acute electrolyte derangement, hypernatremia and hyperchloremia-possible dehydration History hypertension History of diabetes diabetes Plan Going for PEG this afternoon For now continue the following; ICU monitoring Vent weaning Continue sedation with propofol fentanyl Monitor art line Maintain Berumen IV antibiotics disease Zosyn) Follow cultures Appreciate subspecialist input (nephrology gastroenterology neurology and pulmonary medicine) Trend labs Statins Aspirin DVT prophylaxis with [place] Full code Sliding-scale insulin Prognosis guarded CC time 32 minutes Per nephrology recommendations please see the following and we certainly agree and appreciate their input; HyperNatremia - Was on IV bicarb, dced . Currently on 1/2 NS Recommend switch to IV Hypotonic fluid . Was getting TF with water flushes - held as NPO for PEG placement HypoKalemia Replace HypOmagnesemia - normal Mg ? CKD stage 3 Creat 2,1 in 2019 x 1 , No interval labs CVA HTN- [employer] elevated . Primary managing DM II- primary managing Discussed with RN Comment Review of Relevant I have reviewed the following items chino (where applicable) has been applied. Justifications for Admission TIA Indications Persistent neurologic signs?: Yes Justification for admission: There is persistence of patient's focal neurologic signs or symptoms or there is concern for recurrence of patient's neurological signs and symptoms. Severe hypertension?: Yes Justification for admission: There is concern for patient's severe hypertension of (>180/110mmHg--please indicate patient's BP here) that has not been controlled by ED treatment. Patient needs inpatient level of care for further evaluation and management. Other Justification JAGDISH ONEIL III DO Jan 01, 2022 11:38
[2022-01-01] MEDS: VANCOMYCIN PER PHARMACY MC PRN ×2 (11:54→12:42)
[2022-01-01] MEDS: IV DEXTROSE 5% 1,000 ML IV SCH (12:29)
--- NOTE | 2022-01-01 12:39 | PDOC ---
PROGRESS NOTES Date of Service DATE: 01/01/22 TIME: 12:35 Assessment Bilateral thalamic/internal capsule strokes. She is currently sedated. She is going to have a PEG tube placed today. Neurologic prognosis is guarded. Plan I would attempt to keep sedation to a minimum after the procedure. I will follo w along and reevaluate. Subjective Intubated, ventilated, sedated and nonverbal Objective Vital Signs Date Time Temp Pulse Resp B/P (MAP) Pulse Ox O2 Delivery O2 Flow Rate FiO2 01/01/22 11:26 100 Ventilator 01/01/22 11:00 66 17 125/58 01/01/22 08:00 98.2 98.2 Intake and Output 01/01/22 07:00 Intake Total 3611.36 ml Output Total 455 ml Balance 3156.36 ml IV Total 2092.36 ml Tube Feeding 1519 ml Output Urine Total 455 ml Gastric Drainage Total 0 ml PHYSICAL EXAM She was intubated and ventilated. The eyes were closed and there was no opening. When held open the eyes were disconjugate. Pupils were 4 mm and poorly reactive. Oculocephalic reflex was not intact. She did not respond to visual threat or loud clap. Tone was generally increased in all 4 extremities. Nailbed pressure did not provoke much response. Review of Relevant I have reviewed the following items chino (where applicable) has been applied. Labs Laboratory Tests Test 12/30/21 16:54 12/30/21 17:51 12/30/21 18:15 12/30/21 21:30 Glucose (Fingerstick) 230 mg/dL (70-99) O2 Saturation 93 % (92-99) 94 % (92-99) Arterial Blood pH 7.30 (7.35-7.45) 7.43 (7.35-7.45) Arterial Blood pCO2 at Patient Temp 41 mmHg (35-46) 30 mmHg (35-46) Arterial Blood pO2 at Patient Temp 74 mmHg (75-108) 72 mmHg (75-108) Arterial Blood HCO3 20 mmol/L (21-28) 20 mmol/L (21-28) Arterial Blood Base Excess -6 mmol/L (-3-3) -4 mmol/L (-3-3) FiO2 40/bipap 45 Sodium Level 157 mmol/L (136-145) Potassium Level 3.6 mmol/L (3.5-5.1) Chloride Level 118 mmol/L (98-107) Carbon Dioxide Level 22 mmol/L (21-32) Anion Gap 17 (6-14) Blood Urea Nitrogen 28 mg/dL (7-20) Creatinine 1.9 mg/dL (0.6-1.0) Estimated GFR (Cockcroft-Gault) 27.7 Glucose Level 259 mg/dL (70-99) Calcium Level 8.1 mg/dL (8.5-10.1) Test 12/31/21 00:16 12/31/21 05:20 12/31/21 06:00 12/31/21 07:20 Glucose (Fingerstick) 270 mg/dL (70-99) 184 mg/dL (70-99) Sodium Level 154 mmol/L (136-145) Potassium Level 2.6 mmol/L (3.5-5.1) Chloride Level 117 mmol/L (98-107) Carbon Dioxide Level 26 mmol/L (21-32) Anion Gap 11 (6-14) Blood Urea Nitrogen 32 mg/dL (7-20) Creatinine 2.3 mg/dL (0.6-1.0) Estimated GFR (Cockcroft-Gault) 22.2 Glucose Level 172 mg/dL (70-99) Calcium Level 7.9 mg/dL (8.5-10.1) Phosphorus Level 2.7 mg/dL (2.6-4.7) Magnesium Level 1.7 mg/dL (1.8-2.4) O2 Saturation 97 % (92-99) Arterial Blood pH 7.50 (7.35-7.45) Arterial Blood pCO2 at Patient Temp 30 mmHg (35-46) Arterial Blood pO2 at Patient Temp 101 mmHg (75-108) Arterial Blood HCO3 23 mmol/L (21-28) Arterial Blood Base Excess 1 mmol/L (-3-3) FiO2 45/ac 20 400 +5 Test 12/31/21 12:02 12/31/21 17:44 12/31/21 23:37 01/01/22 05:45 Glucose (Fingerstick) 80 mg/dL (70-99) 122 mg/dL (70-99) 142 mg/dL (70-99) Sodium Level 154 mmol/L (136-145) Potassium Level 3.1 mmol/L (3.5-5.1) Chloride Level 116 mmol/L (98-107) Carbon Dioxide Level 27 mmol/L (21-32) Anion Gap 11 (6-14) Blood Urea Nitrogen 34 mg/dL (7-20) Creatinine 2.4 mg/dL (0.6-1.0) Estimated GFR (Cockcroft-Gault) 21.1 Glucose Level 188 mg/dL (70-99) Calcium Level 7.4 mg/dL (8.5-10.1) Magnesium Level 2.3 mg/dL (1.8-2.4) Test 01/01/22 05:57 01/01/22 07:45 01/01/22 10:05 01/01/22 11:49 Glucose (Fingerstick) 178 mg/dL (70-99) 168 mg/dL (70-99) O2 Saturation 96 % (92-99) Arterial Blood pH 7.47 (7.35-7.45) Arterial Blood pCO2 at Patient Temp 36 mmHg (35-46) Arterial Blood pO2 at Patient Temp 88 mmHg (75-108) Arterial Blood HCO3 26 mmol/L (21-28) Arterial Blood Base Excess 2 mmol/L (-3-3) FiO2 35 White Blood Count 7.0 x10^3/uL (4.0-11.0) Red Blood Count 2.96 x10^6/uL (3.50-5.40) Hemoglobin 8.6 g/dL (12.0-15.5) Hematocrit 25.7 % (36.0-47.0) Mean Corpuscular Volume 87 fL (79-100) Mean Corpuscular Hemoglobin 29 pg (25-35) Mean Corpuscular Hemoglobin Concent 33 g/dL (31-37) Red Cell Distribution Width 14.6 % (11.5-14.5) Platelet Count 150 x10^3/uL (140-400) Prothrombin Time 12.8 SEC (11.7-14.0) Prothromb Time International Ratio 1.0 (0.8-1.1) Vancomycin Level Trough 27.4 mcg/mL (10.0-20.0) Vancomycin Last Dose Date 12/31/21 Vancomycin Last Dose Time 1100 Laboratory Tests Test 12/31/21 17:44 12/31/21 23:37 2/14/22 05:45 01/01/22 05:57 Glucose (Fingerstick) 122 mg/dL (70-99) 142 mg/dL (70-99) 178 mg/dL (70-99) Sodium Level 154 mmol/L (136-145) Potassium Level 3.1 mmol/L (3.5-5.1) Chloride Level 116 mmol/L (98-107) Carbon Dioxide Level 27 mmol/L (21-32) Anion Gap 11 (6-14) Blood Urea Nitrogen 34 mg/dL (7-20) Creatinine 2.4 mg/dL (0.6-1.0) Estimated GFR (Cockcroft-Gault) 21.1 Glucose Level 188 mg/dL (70-99) Calcium Level 7.4 mg/dL (8.5-10.1) Magnesium Level 2.3 mg/dL (1.8-2.4) Test 01/01/22 07:45 01/01/22 10:05 01/01/22 11:49 O2 Saturation 96 % (92-99) Arterial Blood pH 7.47 (7.35-7.45) Arterial Blood pCO2 at Patient Temp 36 mmHg (35-46) Arterial Blood pO2 at Patient Temp 88 mmHg (75-108) Arterial Blood HCO3 26 mmol/L (21-28) Arterial Blood Base Excess 2 mmol/L (-3-3) FiO2 35 White Blood Count 7.0 x10^3/uL (4.0-11.0) Red Blood Count 2.96 x10^6/uL (3.50-5.40) Hemoglobin 8.6 g/dL (12.0-15.5) Hematocrit 25.7 % (36.0-47.0) Mean Corpuscular Volume 87 fL (79-100) Mean Corpuscular Hemoglobin 29 pg (25-35) Mean Corpuscular Hemoglobin Concent 33 g/dL (31-37) Red Cell Distribution Width 14.6 % (11.5-14.5) Platelet Count 150 x10^3/uL (140-400) Prothrombin Time 12.8 SEC (11.7-14.0) Prothromb Time International Ratio 1.0 (0.8-1.1) Vancomycin Level Trough 27.4 mcg/mL (10.0-20.0) Vancomycin Last Dose Date 12/31/21 Vancomycin Last Dose Time 1100 Glucose (Fingerstick) 168 mg/dL (70-99) Microbiology 12/30/21 Blood Culture - Preliminary, Resulted NO GROWTH AFTER 1 DAY Medications Current Medications Hydralazine HCl (Apresoline Inj) 10 mg PRN Q4HRS PRN IVP ELEVATED BP, SEE COMMENTS Last administered on 12/30/21at 18:15; Start 12/24/21 at 20:15 Acetaminophen (Tylenol) 650 mg PRN Q6HRS PRN PO MILD PAIN / TEMP > 100.3'F; Start 12/24/21 at 20:15 Ondansetron HCl (Zofran) 4 mg PRN Q4HRS PRN IVP NAUSEA/VOMITING; Start 12/24/21 at 20:15 Olanzapine (ZyPREXA ZYDIS) 5 mg PRN BID PRN PO ANXIETY / AGITATION Last administered on 12/24/21at 22:49; Start 12/24/21 at 20:15 Bisacodyl (Dulcolax Supp) 10 mg PRN DAILY PRN TX CONSTIPATION; Start 12/24/21 at 20:15 Nicardipine HCl 50 mg/Sodium Chloride 250 ml @ 25 mls/hr CONT PRN PRN IV PER PROTOCOL Last administered on 12/27/21at 15:42; Start 12/24/21 at 20:15; Stop 12/30/21 at 19:39; Status DC Atorvastatin Calcium (Lipitor) 80 mg QHS PO Last administered on 12/31/21at 21:16; Start 12/24/21 at 21:00 Acetaminophen (Tylenol) 650 mg PRN Q6HRS PRN PO MILD PAIN / TEMP > 100.3'F; Start 12/24/21 at 20:15; Stop 12/24/21 at 20:17; Status DC Bisacodyl (Dulcolax Supp) 10 mg PRN DAILY PRN TX CONSTIPATION; Start 12/24/21 at 20:15; Status UNV Famotidine (Pepcid Vial) 20 mg BID IVP Last administered on 12/26/21at 08:38; Start 12/24/21 at 21:00; Stop 12/26/21 at 08:51; Status DC Aspirin (Aspirin Rectal Supp) 300 mg PRN DAILY PRN TX IF UNABLE TO TAKE PO Last administered on 12/29/21at 10:28; Start 12/24/21 at 20:15 Acetaminophen (Tylenol Supp) 650 mg PRN Q6HRS PRN TX MILD PAIN / TEMP > 100.3'F; Start 12/24/21 at 20:15 Insulin Human Lispro (HumaLOG) 0-9 UNITS Q6HRS SQ Last administered on 01/01/22at 06:00; Start 12/25/21 at 00:00 Dextrose (Dextrose 50%-Water Syringe) 12.5 gm PRN Q15MIN PRN IV SEE COMMENTS; Start 12/24/21 at 20:15 Dextrose (Iv Dextrose 5%) 250 ml PRN Q15MIN PRN IV SEE COMMENTS; Start 12/24/21 at 20:15 Potassium Chloride/Water 100 ml @ 100 mls/hr Q1H IV ; Start 12/25/21 at 09:00; Stop 12/25/21 at 10:59; Status UNV Potassium Chloride/Water 100 ml @ 100 mls/hr Q1H IV Last administered on 12/25/21at 13:16; Start 12/25/21 at 09:00; Stop 12/25/21 at 12:59; Status DC Cetirizine HCl (ZyrTEC) 10 mg DAILY PO Last administered on 12/31/21at 09:07; Start 12/25/21 at 10:00 Vitamin D (Vitamin D3) 1,000 unit DAILY PO Last administered on 12/31/21at 09:09; Start 12/25/21 at 10:00 Montelukast Sodium (Singulair) 10 mg DAILY PO Last administered on 12/31/21at 09:10; Start 12/25/21 at 10:00 Losartan Potassium (Cozaar) 100 mg DAILY PO ; Start 12/25/21 at 10:00; Stop 12/31/21 at 14:46; Status DC Pantoprazole Sodium (Protonix) 40 mg DAILYAC PO ; Start 12/25/21 at 11:30; Stop 12/29/21 at 12:07; Status DC Lorazepam (Ativan Inj) 2 mg PRN Q4HRS PRN IVP ANXIETY / AGITATION Last administered on 12/29/21at 20:16; Start 12/25/21 at 10:00 Hydrochlorothiazide (Hydrodiuril) 25 mg DAILY PO ; Start 12/25/21 at 10:00; Stop 12/31/21 at 14:47; Status DC Sodium Chloride 1,000 ml @ 50 mls/hr Q20H IV Last administered on 12/29/21at 08:14; Start 12/25/21 at 17:00; Stop 12/30/21 at 10:35; Status DC Famotidine (Pepcid Vial) 20 mg DAILY IVP Last administered on 01/01/22at 09:09; Start 12/27/21 at 09:00 Labetalol HCl (Normodyne Iv Push) 10 mg PRN Q2HR PRN IVP HYPERTENSION (1ST) Last administered on 12/30/21at 15:22; Start 12/26/21 at 13:15 Heparin Sodium (Porcine) (Heparin Sodium) 5,000 unit Q8HRS SQ Last administered on 01/01/22at 05:59; Start 12/26/21 at 14:00 Labetalol HCl (Normodyne Iv Push) 20 mg PRN Q2HR PRN IVP HYPERTENSION (1ST) Last administered on 12/30/21at 17:45; Start 12/26/21 at 13:30 Clonidine HCl (Catapres Tts-2) 1 patch WEEKLY TD Last administered on 12/26/21at 15:13; Start 12/26/21 at 15:00 Nicotine (Nicoderm Cq 21mg) 1 patch DAILY TD Last administered on 12/29/21at 08:16; Start 12/26/21 at 15:00 Nitroglycerin (Nitro-Bid Oint) 1 inch Q6HRS TP Last administered on 01/01/22at 06:00; Start 12/26/21 at 18:00 Enalaprilat (Vasotec Inj) 1.25 mg Q6HRS IVP Last administered on 12/30/21at 12:54; Start 12/28/21 at 12:00; Stop 12/31/21 at 14:47; Status DC Cefazolin Sodium (Ancef) 1 gm 1X ONCE IVP ; Start 01/01/22 at 13:30; Stop 01/01/22 at 08:01; Status DC Albuterol Sulfate (Ventolin Neb Soln) 2.5 mg RTQID NEB Last administered on 12/30/21at 07:30; Start 12/30/21 at 08:00; Stop 12/30/21 at 11:22; Status DC Albuterol Sulfate (Ventolin Neb Soln) 2.5 mg PRN Q4HRS PRN NEB SHORTNESS OF BREATH Last administered on 12/30/21at 01:55; Start 12/30/21 at 02:00 Piperacillin Sod/ Tazobactam Sod (Zosyn Per Pharmacy) 1 each PRN DAILY PRN MC SEE COMMENTS; Start 12/30/21 at 04:30 Potassium Chloride/Water 100 ml @ 100 mls/hr Q1H IV Last administered on 12/30/21at 09:25; Start 12/30/21 at 05:00; Stop 12/30/21 at 08:59; Status DC Piperacillin Sod/ Tazobactam Sod 3.375 gm/Sodium Chloride 50 ml @ 100 mls/hr Q6HRS IV Last administered on 01/01/22at 12:31; Start 12/30/21 at 06:00 Sodium Chloride 1,000 ml @ 75 mls/hr [id number] IV ; Start 12/30/21 at 08:30; Stop 12/30/21 at 11:22; Status DC Sodium Bicarbonate (Sodium Bicarb Adult 8.4% Syr) 50 meq 1X ONCE IV Last administered on 12/30/21at 08:30; Start 12/30/21 at 08:30; Stop 12/30/21 at 08:40; Status DC Albuterol/ Ipratropium (Duoneb) 3 ml RTQID NEB Last administered on 01/01/22at 11:28; Start 12/30/21 at 12:00 Vancomycin HCl (Vanco Per Pharmacy) 1 each PRN DAILY PRN MC SEE COMMENTS Last administered on 01/01/22at 11:54; Start 12/30/21 at 10:30 Sodium Bicarbonate (Sodium Bicarb Adult 8.4% Syr) 50 meq 1X ONCE IV Last administered on 12/30/21at 11:10; Start 12/30/21 at 10:30; Stop 12/30/21 at 10:34; Status DC Vancomycin HCl 1.5 gm/Sodium Chloride 500 ml @ 250 mls/hr 1X ONCE IV Last administered on 12/30/21at 10:51; Start 12/30/21 at 11:00; Stop 12/30/21 at 12:59; Status DC Sodium Bicarbonate 150 meq/Dextrose 1,150 ml @ 75 mls/hr [id number] IV Last administered on 12/31/21at 03:04; Start 12/30/21 at 11:00; Stop 12/31/21 at 08:24; Status DC Aspirin (Aspirin Rectal Supp) 300 mg DAILY TX Last administered on 01/01/22at 09:12; Start 12/30/21 at 11:00 Vancomycin HCl 1 gm/Sodium Chloride 250 ml @ 250 mls/hr Q24H IV Last administered on 12/31/21at 11:19; Start 12/31/21 at 11:00; Stop 01/01/22 at 11:42; Status DC Vancomycin HCl (Vancomycin Trough Level) 1 each 1X ONCE MC Last administered o n 01/01/22at 10:30; Start 01/01/22 at 10:30; Stop 01/01/22 at 10:31; Status DC Lactobacillus Rhamnosus (Culturelle) 1 cap BID PO ; Start 12/30/21 at 21:00 Furosemide (Lasix) 40 mg 1X ONCE IVP Last administered on 12/30/21at 18:04; Start 12/30/21 at 17:45; Stop 12/30/21 at 17:46; Status DC Diltiazem HCl 125 mg/Sodium Chloride 125 ml @ 5 mls/hr CONT PRN IV PER PROTOCOL; Start 12/30/21 at 18:15; Stop 12/30/21 at 19:20; Status DC Furosemide (Lasix) 40 mg 1X ONCE IVP Last administered on 12/30/21at 22:24; Start 12/30/21 at 19:30; Stop 12/30/21 at 19:38; Status DC Nicardipine HCl 50 mg/Sodium Chloride 250 ml @ 12.5 mls/hr CONT PRN IV PER PROTOCOL; Start 12/30/21 at 19:30 Succinylcholine Chloride (Anectine) 200 mg STK-MED ONCE .ROUTE ; Start 12/30/21 at 19:49; Stop 12/30/21 at 19:49; Status DC Etomidate (Amidate) 20 mg STK-MED ONCE IV ; Start 12/30/21 at 19:49; Stop 12/30/21 at 19:49; Status DC Fentanyl Citrate 30 ml @ 0 mls/hr CONT PRN IV SEE PROTOCOL Last administered on 01/01/22at 04:02; Start 12/30/21 at 21:30 Midazolam HCl 100 ml @ 1 mls/hr CONT PRN IV SEE PROTOCOL; Start 12/30/21 at 21:30 Propofol 100 ml @ 1.917 mls/ hr CONT PRN IV PER PROTOCOL Last administered on 12/31/21at 16:40; Start 12/30/21 at 21:30 Vecuronium [place] (Norcuron Bolus) 6 mg PRN 1X PRN IV VENT INDUCTION; Start 12/30/21 at 21:30; Stop 12/31/21 at 21:29; Status DC Chlorhexidine Gluconate (Peridex) 15 ml BID MM Last administered on 12/31/21at 21:16; Start 12/31/21 at 09:00 Glycerin/ Hypromellose/ Polyethylene (Artificial Tears) 1 drop PRN Q1HR PRN OU DRY EYE; Start 12/30/21 at 21:30 Dexmedetomidine HCl 400 mcg/ Sodium Chloride 100 ml @ 3.195 mls/ hr CONT PRN IV PER PROTOCOL; Start 12/30/21 at 21:30 Midazolam HCl (Versed) 5 mg PRN 1X PRN IVP VENT INDUCTION; Start 12/30/21 at 21 :30; Stop 12/31/21 at 21:29; Status DC Sodium Chloride 500 ml @ 500 mls/hr 1X PRN PRN IV SEE COMMENTS; Start 12/30/21 at 21:30 Atropine Sulfate (ATROPINE 0.5mg SYRINGE) 0.5 mg PRN Q5MIN PRN IV SEE COMMENTS; Start 12/30/21 at 21:30 Sodium Chloride 1,000 ml @ 75 mls/hr [id number] IV Last administered on 01/01/22at 04:01; Start 12/31/21 at 08:30; Stop 01/01/22 at 10:39; Status DC Potassium Bicarbonate (Potassium Effervescent Tablet) 40 meq 1X ONCE PEG Last administered on 12/31/21at 09:07; Start 12/31/21 at 08:30; Stop 12/31/21 at 08:31; Status DC Magnesium Sulfate 50 ml @ 25 mls/hr 1X ONCE IV Last administered on 12/31/21at 09:06; Start 12/31/21 at 08:30; Stop 12/31/21 at 10:29; Status DC Etomidate (Amidate) 20 mg STK-MED ONCE IV ; Start 12/30/21 at 20:00; Stop 01/01/22 at 09:12; Status DC Succinylcholine Chloride (Anectine) 200 mg STK-MED ONCE .ROUTE ; Start 12/30/21 at 20:00; Stop 01/01/22 at 09:12; Status DC Dextrose 1,000 ml @ 75 mls/hr [id number] IV Last administered on 01/01/22at 12:29; Start 01/01/22 at 10:45 Vancomycin HCl 1 gm/Sodium Chloride 250 ml @ 250 mls/hr Q36H IV ; Start 01/01/22 at 23:00 Active Scripts Active Reported Montelukast Sodium 10 Mg Tablet 1 Tab PO DAILY Stool Softener (Docusate Sodium) 50 Mg Capsule 50 Mg PO BID [place] 5-325 Tablet (Acetaminophen/Hydrocodone Bitart) 1 Each Tablet 1 Tab PO Q4HRS LAST DOSE GIVEN: Lantus Solostar (Insulin Glargine,Hum.rec.anlog) 100 Unit/1 Ml Insuln.pen 21 Unit SQ QHS Culturelle (Lactobacillus Rhamnosus Gg) 1 Each Capsule 1 Each PO DAILY Alive Once Daily Women 50 Plus (Mv-Mn/Folic Acid/Vit [id number]) 1 Each Tablet 1 Each PO DAILY [place] 5-325 Tablet (Acetaminophen/Hydrocodone Bitart) 1 Each Tablet 1 Tab PO PRN Q6HRS PRN Tizanidine Hcl 4 Mg Tablet 2 Tab PO TID PRN Proair Hfa Inhaler (Albuterol Sulfate) 8.5 Gm Hfa.aer.ad 1 Puff INH PRN Q6HRS PRN Montelukast Sodium Tablet (Montelukast Sodium) 10 Mg Tablet 1 Tab PO DAILY Losartan-Hctz 100-25 Mg Tab (Losartan/Hydrochlorothiazide) 1 Each Tablet 1 Tab PO DAILY Protonix (Pantoprazole Sodium) 20 Mg Tablet.dr 1 Tab PO DAILY Vitamin D3 (Cholecalciferol (Vitamin D3)) 1,000 Unit Tablet 1 Tab PO DAILY Cetirizine Hcl 10 Mg Tablet 1 Tab PO DAILY Janumet 50-1,000 Mg Tablet (Sitagliptin Phos/Metformin Hcl) 1 Each Tablet 1 Tab PO BID Vitals/I & O Vital Sign - Last 24 Hours 12/31/21 12/31/21 12/31/21 12/31/21 13:00 13:45 14:00 15:00 Pulse 50 49 52 Resp 18 16 16 B/P (MAP) 136/58 107/45 125/50 Pulse Ox 100 96 100 100 O2 Delivery Ventilator Ventilator Ventilator Ventilator 12/31/21 12/31/21 12/31/21 12/31/21 15:45 16:00 17:00 17:21 Temp 97.9 97.9 Pulse 53 76 Resp 16 16 B/P (MAP) 114/49 157/60 Pulse Ox 99 100 100 100 O2 Delivery Ventilator Ventilator Ventilator Ventilator 12/31/21 12/31/21 12/31/21 12/31/21 18:00 19:00 20:00 20:00 Temp 99.4 99.4 Pulse 69 70 70 Resp 16 21 16 B/P (MAP) 156/59 156/58 156/58 Pulse Ox 100 100 100 O2 Delivery Ventilator Ventilator Ventilator Mechanical Ventilator 12/31/21 12/31/21 12/31/21 12/31/21 20:07 21:00 22:00 23:00 Pulse 68 72 76 Resp 22 B/P (MAP) 146/54 163/60 160/58 Pulse Ox 99 100 100 100 O2 Delivery Ventilator Ventilator Ventilator Ventilator 01/01/22 01/01/22 01/01/22 01/01/22 00:00 00:13 00:17 01:00 Temp 99.9 99.9 Pulse 86 76 80 Resp 22 19 B/P (MAP) 172/65 156/56 156/58 Pulse Ox 100 100 100 O2 Delivery Ventilator Ventilator Ventilator 01/01/22 01/01/22 01/01/22 01/01/22 02:00 03:00 04:00 04:10 Temp 99.8 99.8 Pulse 83 84 81 Resp 19 17 19 B/P (MAP) 161/60 166/64 165/64 Pulse Ox 100 100 100 100 O2 Delivery Ventilator Ventilator Ventilator Ventilator 01/01/22 01/01/22 01/01/22 01/01/22 05:00 06:00 06:00 07:00 Pulse 78 75 76 74 Resp 17 17 17 B/P (MAP) 140/56 159/60 158/60 148/56 Pulse Ox 100 100 100 O2 Delivery Ventilator Ventilator Ventilator 201/01/22 01/01/22 01/01/22 08:00 08:19 09:00 10:00 Temp 98.2 98.2 Pulse 72 72 68 Resp 17 17 17 B/P (MAP) 136/56 154/58 158/58 Pulse Ox 100 100 100 100 O2 Delivery Ventilator Ventilator Ventilator Ventilator 01/01/22 01/01/22 11:00 11:26 Pulse 66 Resp 17 B/P (MAP) 125/58 Pulse Ox 100 100 O2 Delivery Ventilator Ventilator Intake and Output 12/31/21 12/31/21 01/01/22 15:00 23:00 07:00 Intake Total 799 ml 1018 ml 1794.36 ml Output Total 220 ml 95 ml 140 ml Balance 579 ml 923 ml 1654.36 ml Justicifation of Admission Dx: Justifications for Admission: Justification of Admission Dx: Yes Stroke - Ischemic: Stroke-Ischemic NATY MANCILLA MD Jan 01, 2022 12:39
--- NOTE | 2022-01-01 12:43 | NUR ---
Pharmacy Vancomycin Dosing Note S: Consulted to monitor and dose vancomycin started 12/30/21. O: TAI SIDDIQI is a 51 year old F with Sepsis Pneumonia, . Other Antibiotics: CEFEPIME LABS: Last BUN: 34 Last Creatinine: 2.4 Creatinine Clearance: 27 mL/min Last WBC: 7 Last Procalcitonin: Tmax (past 24 hours): Microbiology: I/O: 3611/455 Drug Levels: Last Trough level: on 01/01/22 at 1005 Last dose given 12/30/21 at 1100 Vancomycin Dosing: Dosing Weight: Actual Target Trough: 15-20 A: Based on: elevated trough (27-drawn early) P: 1. Begin Vancomycin 1000 mg IV q36h 2. Follow up Trough level on 01/03/22 at 1030 3. Pharmacy will continue to monitor, follow and adjust therapy as needed. BEN LYON, [facility], 01/01/22 [id number]
[2022-01-01] MEDS ORDERED: ceFAZolin SODIUM IV Push 1 GM VIAL. IVP ONE (13:30)
--- NOTE | 2022-01-01 14:58 | PDOC4 ---
PROCEDURE Procedure EGD/PEG Indication: OP dysphagia Meds: none save ventilator control. Findings: E--Normal G--Erythema/erosions atop rugae in body c/w stress gastritis. D--Normal bulb. --20F G-tube placed uneventfully. Briefly re-scoped, confirming good placement. Huyen.well. IMP: "Stress" gastritis. Successful PEG. REC: OK for water/meds per tube today. If no issues, can start feedings in AM. No anticoagulants until Saturday. LILLY SHAHID MD Jan 01, 2022 14:58
--- NOTE | 2022-01-01 16:22 | NUR ---
SS following up with discharge planning. SS reviewed pt chart and discussed with pt RN. Pt transferred to ICU over the weekend. Pt is currently intubated and is currently on the vent at 35%. Pt on IV Vancomycin and IV Zosyn. Peg tube placed today. Pt on Propofol and Fentanyl. Self pay. Med Assist following. Not stable. SS will continue to follow for discharge planning.
[2022-01-01] MEDS: ATORVASTATIN CALCIUM 40 MG TABLET. PO SCH (21:00)
[2022-01-01] MEDS ORDERED: VANCOMYCIN 1 GM in IV NORMAL SALINE 250ML 250 ML IV SCH (23:00)
[2022-01-02] VITALS (25 sets, daily range): BP systolic 122–213; BP diastolic 54–102
[2022-01-02] MEDS: PIPERACILLIN/TAZOBACTAM 3.375 GM in IV NORMAL SALINE 50ML 50 ML IV SCH ×4 (00:16→17:46)
[2022-01-02] MEDS: INSULIN LISPRO 300 UNITS/3 ML VIAL. SQ SCH ×4 (00:18→17:47)
[2022-01-02] MEDS: PROPOFOL 100 ML IV PRN ×2 (00:27→17:47)
[2022-01-02] MEDS: IV DEXTROSE 5% 1,000 ML IV SCH (05:15)
[2022-01-02] MEDS: NITROGLYCERIN OINT 1 GM PACKET. TP SCH ×4 (06:00→17:47)
[2022-01-02 07:09] LABS: ALBUMIN 1.3 g/dL (3.4-5.0); CALCIUM 7.7 mg/dL (8.5-10.1); CREATININE 2.3 mg/dL (0.6-1.0); GFR 22.2; POTASSIUM 3.1 mmol/L (3.5-5.1)
[2022-01-02] MEDS: IPRATRPIUM/ALBUTEROL 0.5/2.5MG 3 ML NEBU. NEB SCH ×4 (07:59→20:21)
[2022-01-02 08:04] LABS: BASE EXCESS ABG -1 mmol/L (-3-3); HCO3 ABG 24 mmol/L (21-28); PCO2 ABG 38 mmHg (35-46); PO2 ABG 71 mmHg (75-108); SAT O2 ABG 93 % (92-99)
[2022-01-02 08:05] LABS: FIO2 ABG 35
[2022-01-02] MEDS: NICOTINE 21MG PATCH. TD SCH (09:00)
--- NOTE | 2022-01-02 09:11 | PDOC ---
DATE OF SERVICE DATE: 01/02/22 TIME: 09:06 SUBJECTIVE ROS Remains Intubated OBJECTIVE Vital Signs Vital Signs Date Time Temp Pulse Resp B/P (MAP) Pulse Ox O2 Delivery O2 Flow Rate FiO2 01/02/22 08:00 98.4 52 16 148/62 100 Ventilator 98.4 I & 0 Intake and Output 01/02/22 06:59 Intake Total 2945.17 ml Output Total 389 ml Balance 2556.17 ml IV Total 2195.17 ml Tube Feeding 750 ml Output Urine Total 389 ml PHYSICAL EXAM Physical Exam General Appearance: Intubated HEEN ETT + Skin: warm, No rash Respiratory: bilateral CTA ant Heart: S1S2 Abdomen: soft, bowel sounds present Genitourinary: Berumen Extremities: No LE edema , No cyanosis Neurology: sedated DIAGNOSIS/ASSESSMENT Assessment & Plan MICHELET - - Creat trended up since admission , 1.7-->2.4; stable today , uop marginal , Lasix x 1 today , no emergent indication for dialysis , monitor daily and re-evaluate Supportive care, avoid Nephrotoxins . Vanc levels high - pharmacy managing HyperNatremia - Was on IV bicarb, dced . switched to IV Hypotonic fluid . Has PEG now for TF with water flushes HypoKalemia Replace IV HypOmagnesemia - normal Mg ? 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 Primary managing DM II- primary managing Discussed with RN COMMENT/RELEVANT DATA Meds Current Medications Medications (Trade) Dose Ordered Sig/Fabio Start Time Stop Time Status Last Admin Dose Admin Acetaminophen (Tylenol Supp) 650 mg PRN Q6HRS PRN 12/24/21 20:15 Acetaminophen (Tylenol) 650 mg PRN Q6HRS PRN 12/24/21 20:15 12/24/21 20:17 DC Albuterol Sulfate (Ventolin Neb Soln) 2.5 mg PRN Q4HRS PRN 12/30/21 02:00 12/30/21 01:55 2.5 MG Albuterol/ Ipratropium (Duoneb) 3 ml RTQID 12/30/21 12:00 01/02/22 07:59 3 ML Amiodarone HCl (Cordarone) 300 mg STK-MED ONCE 12/30/21 20:00 01/01/22 13:17 DC Aspirin (Aspirin Rectal Supp) 300 mg DAILY 12/30/21 11:00 01/01/22 09:12 300 MG Atorvastatin Calcium (Lipitor) 80 mg QHS 12/24/21 21:00 12/31/21 21:16 80 MG Atropine Sulfate (ATROPINE 0.5mg SYRINGE) 0.5 mg PRN Q5MIN PRN 12/30/21 21:30 Bisacodyl (Dulcolax Supp) 10 mg PRN DAILY PRN 12/24/21 20:15 UNV Cefazolin Sodium (Ancef) 1 gm 1X ONCE 01/01/22 13:30 01/01/22 08:01 DC Cetirizine HCl (ZyrTEC) 10 mg DAILY 12/25/21 10:00 12/31/21 09:07 10 MG Chlorhexidine Gluconate (Peridex) 15 ml BID 12/31/21 09:00 01/01/22 21:03 15 ML Clonidine HCl (Catapres Tts-2) 1 patch WEEKLY 12/26/21 15:00 12/26/21 15:13 1 PATCH Dexmedetomidine HCl 400 mcg/ Sodium Chloride 100 ml @ 3.195 mls/ hr CONT PRN 12/30/21 21:30 Dextrose 1,000 ml @ 75 mls/hr [id number] 01/01/22 10:45 01/02/22 05:15 75 MLS/HR Dextrose (Dextrose 50%-Water Syringe) 12.5 gm PRN Q15MIN PRN 12/24/21 20:15 Dextrose (Iv Dextrose 5%) 250 ml PRN Q15MIN PRN 12/24/21 20:15 Diltiazem HCl 125 mg/Sodium Chloride 125 ml @ 5 mls/hr CONT PRN 12/30/21 18:15 12/30/21 19:20 DC Enalaprilat (Vasotec Inj) 1.25 mg Q6HRS 12/28/21 12:00 12/31/21 14:47 DC 12/30/21 12:54 1.25 MG Epinephrine HCl (EPINEPHrine SYRINGE) 3 mg STK-MED ONCE 12/30/21 20:00 01/01/22 13:17 DC Etomidate (Amidate) 20 mg STK-MED ONCE 12/30/21 20:00 01/01/22 09:12 DC Famotidine (Pepcid Vial) 20 mg DAILY 12/27/21 09:00 01/01/22 09:09 20 MG Fentanyl Citrate 30 ml @ 0 mls/hr CONT PRN 12/30/21 21:30 01/02/22 03:15 2.5 MLS/HR Furosemide (Lasix) 40 mg 1X ONCE 12/30/21 19:30 12/30/21 19:38 DC 12/30/21 22:24 40 MG Glycerin/ Hypromellose/ Polyethylene (Artificial Tears) 1 drop PRN Q1HR PRN 12/30/21 21:30 Heparin Sodium (Porcine) (Heparin Sodium) 5,000 unit Q8HRS 12/26/21 14:00 Hold 01/01/22 05:59 5,000 UNIT Hydralazine HCl (Apresoline Inj) 10 mg PRN Q4HRS PRN 12/24/21 20:15 12/30/21 18:15 10 MG Hydrochlorothiazide (Hydrodiuril) 25 mg DAILY 12/25/21 10:00 12/31/21 14:47 DC Insulin Human Lispro (HumaLOG) 0-9 UNITS Q6HRS 12/25/21 00:00 01/02/22 00:18 4 UNITS Labetalol HCl (Normodyne Iv Push) 20 mg PRN Q2HR PRN 12/26/21 13:30 12/30/21 17:45 20 MG Lactobacillus Rhamnosus (Culturelle) 1 cap BID 12/30/21 21:00 01/02/22 07:33 DC Lorazepam (Ativan Inj) 2 mg PRN Q4HRS PRN 12/25/21 10:00 12/29/21 20:16 2 MG Losartan Potassium (Cozaar) 100 mg DAILY 12/25/21 10:00 12/31/21 14:46 DC Magnesium Sulfate 50 ml @ 25 mls/hr 1X ONCE 12/31/21 08:30 12/31/21 10:29 DC 12/31/21 09:06 25 MLS/HR Magnesium Sulfate/ Dextrose (Magnesium Sulfate PREMIX 1GM) 1 gm STK-MED ONCE 12/30/21 20:00 01/01/22 13:17 DC Midazolam HCl (Versed) 5 mg PRN 1X PRN 12/30/21 21:30 12/31/21 21:29 DC Montelukast Sodium (Singulair) 10 mg DAILY 12/25/21 10:00 12/31/21 09:10 10 MG Nicardipine HCl 50 mg/Sodium Chloride 250 ml @ 12.5 mls/hr CONT PRN 12/30/21 19:30 Nicotine (Nicoderm Cq 21mg) 1 patch DAILY 12/26/21 15:00 12/29/21 08:16 1 PATCH Nitroglycerin (Nitro-Bid Oint) 1 inch Q6HRS 12/26/21 18:00 01/01/22 06:00 1 INCH Olanzapine (ZyPREXA ZYDIS) 5 mg PRN BID PRN 12/24/21 20:15 12/24/21 22:49 5 MG Ondansetron HCl (Zofran) 4 mg PRN Q4HRS PRN 12/24/21 20:15 Pantoprazole Sodium (Protonix) 40 mg DAILYAC 12/25/21 11:30 12/29/21 12:07 DC Piperacillin Sod/ Tazobactam Sod (Zosyn Per Pharmacy) 1 each PRN DAILY PRN 12/30/21 04:30 Piperacillin Sod/ Tazobactam Sod 3.375 gm/Sodium Chloride 50 ml @ 100 mls/hr Q6HRS 12/30/21 06:00 01/02/22 06:03 100 MLS/HR Potassium Bicarbonate (Potassium Effervescent Tablet) 40 meq 1X ONCE 12/31/21 08:30 12/31/21 08:31 DC 12/31/21 09:07 40 MEQ Potassium Chloride/Water 100 ml @ 100 mls/hr Q1H 12/30/21 05:00 12/30/21 08:59 DC 12/30/21 09:25 100 MLS/HR Propofol 100 ml @ 1.917 mls/ hr CONT PRN 12/30/21 21:30 01/02/22 00:27 5.751 MLS/HR Sodium Bicarbonate 150 meq/Dextrose 1,150 ml @ 75 mls/hr [id number] 12/30/21 11:00 12/31/21 08:24 DC 12/31/21 03:04 75 MLS/HR Sodium Bicarbonate (Sodium Bicarb Adult 8.4% Syr) 50 meq STK-MED ONCE 12/30/21 20:00 01/01/22 13:17 DC Sodium Chloride 1,000 ml @ 75 mls/hr [id number] 12/31/21 08:30 01/01/22 10:39 DC 01/01/22 04:01 75 MLS/HR Succinylcholine Chloride (Anectine) 200 mg STK-MED ONCE 12/30/21 20:00 01/01/22 09:12 DC Vancomycin HCl (Vanco Per Pharmacy) 1 each PRN DAILY PRN 12/30/21 10:30 01/01/22 12:42 1 EACH Vancomycin HCl (Vancomycin Trough Level) 1 each 1X ONCE 01/03/22 10:30 01/03/22 10:31 Vancomycin HCl 1.5 gm/Sodium Chloride 500 ml @ 250 mls/hr 1X ONCE 12/30/21 11:00 12/30/21 12:59 DC 12/30/21 10:51 250 MLS/HR Vancomycin HCl 1 gm/Sodium Chloride 250 ml @ 250 mls/hr Q36H 01/01/22 23:00 01/01/22 22:52 250 MLS/HR Vecuronium Galion (Norcuron Bolus) 6 mg PRN 1X PRN 12/30/21 21:30 12/31/21 21:29 DC Vitamin D (Vitamin D3) 1,000 unit DAILY 12/25/21 10:00 12/31/21 09:09 1,000 UNIT Lab Laboratory Tests Test 01/01/22 10:05 01/01/22 11:49 01/01/22 17:08 01/01/22 23:40 White Blood Count 7.0 x10^3/uL (4.0-11.0) Red Blood Count 2.96 x10^6/uL (3.50-5.40) Hemoglobin 8.6 g/dL (12.0-15.5) Hematocrit 25.7 % (36.0-47.0) Mean Corpuscular Volume 87 fL (79-100) Mean Corpuscular Hemoglobin 29 pg (25-35) Mean Corpuscular Hemoglobin Concent 33 g/dL (31-37) Red Cell Distribution Width 14.6 % (11.5-14.5) Platelet Count 150 x10^3/uL (140-400) Prothrombin Time 12.8 SEC (11.7-14.0) Prothromb Time International Ratio 1.0 (0.8-1.1) Vancomycin Level Trough 27.4 mcg/mL (10.0-20.0) Vancomycin Last Dose Date 12/31/21 Vancomycin Last Dose Time 1100 Glucose (Fingerstick) 168 mg/dL (70-99) 165 mg/dL (70-99) 187 mg/dL (70-99) Test 01/02/22 05:40 01/02/22 06:01 01/02/22 07:55 Sodium Level 150 mmol/L (136-145) Potassium Level 3.1 mmol/L (3.5-5.1) Chloride Level 114 mmol/L (98-107) Carbon Dioxide Level 27 mmol/L (21-32) Anion Gap 9 (6-14) Blood Urea Nitrogen 34 mg/dL (7-20) Creatinine 2.3 mg/dL (0.6-1.0) Estimated GFR (Cockcroft-Gault) 22.2 Glucose Level 116 mg/dL (70-99) Calcium Level 7.7 mg/dL (8.5-10.1) Phosphorus Level 4.0 mg/dL (2.6-4.7) Albumin 1.3 g/dL (3.4-5.0) Glucose (Fingerstick) 114 mg/dL (70-99) O2 Saturation 93 % (92-99) Arterial Blood pH 7.41 (7.35-7.45) Arterial Blood pCO2 at Patient Temp 38 mmHg (35-46) Arterial Blood pO2 at Patient Temp 71 mmHg (75-108) Arterial Blood HCO3 24 mmol/L (21-28) Arterial Blood Base Excess -1 mmol/L (-3-3) FiO2 35 Results All relevant outside records, renal labs, imaging studies, telemetry/EKG's were reviewed. Justicifation of Admission Dx: Justifications for Admission: Justification of Admission Dx: Yes Stroke - Ischemic: Stroke-Ischemic VIKA WEST MD Jan 02, 2022 09:11
[2022-01-02] MEDS ORDERED: POTASSIUM BICARB 20 MEQ EFFERVESCENT TABLET. PEG ONE ×2 (09:30→17:45)
[2022-01-02] MEDS ORDERED: FUROSEMIDE 100 MG/10 ML VIAL. IVP ONE (09:30)
[2022-01-02] MEDS: CHLORHEXIDINE 0.12% 15 ML MOUTHWASH. MM SCH ×2 (09:32→21:00)
[2022-01-02] MEDS: FAMOTIDINE 20 MG/2 ML VIAL IVP SCH (09:39)
[2022-01-02] MEDS: CHOLECALCIFEROL (VITAMIN D3) 1,000 UNIT TABLET PO SCH (09:39)
[2022-01-02] MEDS: CETIRIZINE HCL 10 MG TABLET. PO SCH (09:40)
[2022-01-02] MEDS: cloNIDine TTS-2 1 PATCH PATCH TD SCH (09:40)
[2022-01-02] MEDS: MONTELUKAST SODIUM 10 MG TABLET. PO SCH (09:40)
[2022-01-02] MEDS: ASPIRIN RECTAL 300 MG SUPP. PR SCH (09:42)
--- NOTE | 2022-01-02 10:04 | PDOC ---
Date of Service: DATE: 01/02/22 TIME: 10:01 Objective: Objective: D/w nurse - no issues w/ PEG, to start tube feeds this morning. Vital Signs: Vital Signs Date Time Temp Pulse Resp B/P (MAP) Pulse Ox O2 Delivery O2 Flow Rate FiO2 01/02/22 09:00 50 16 145/60 100 Ventilator 01/02/22 08:00 98.4 98.4 Labs: Laboratory Tests Test 01/01/22 10:05 01/01/22 11:49 01/01/22 17:08 01/01/22 23:40 White Blood Count 7.0 x10^3/uL Red Blood Count 2.96 x10^6/uL Hemoglobin 8.6 g/dL Hematocrit 25.7 % Mean Corpuscular Volume 87 fL Mean Corpuscular Hemoglobin 29 pg Mean Corpuscular Hemoglobin Concent 33 g/dL Red Cell Distribution Width 14.6 % Platelet Count 150 x10^3/uL Prothrombin Time 12.8 SEC Prothromb Time International Ratio 1.0 Vancomycin Level Trough 27.4 mcg/mL Vancomycin Last Dose Date 12/31/21 Vancomycin Last Dose Time 1100 Glucose (Fingerstick) 168 mg/dL 165 mg/dL 187 mg/dL Test 01/02/22 05:40 01/02/22 06:01 01/02/22 07:55 Sodium Level 150 mmol/L Potassium Level 3.1 mmol/L Chloride Level 114 mmol/L Carbon Dioxide Level 27 mmol/L Anion Gap 9 Blood Urea Nitrogen 34 mg/dL Creatinine 2.3 mg/dL Estimated GFR (Cockcroft-Gault) 22.2 Glucose Level 116 mg/dL Calcium Level 7.7 mg/dL Phosphorus Level 4.0 mg/dL Albumin 1.3 g/dL Glucose (Fingerstick) 114 mg/dL O2 Saturation 93 % Arterial Blood pH 7.41 Arterial Blood pCO2 at Patient Temp 38 mmHg Arterial Blood pO2 at Patient Temp 71 mmHg Arterial Blood HCO3 24 mmol/L Arterial Blood Base Excess -1 mmol/L FiO2 35 Imaging: EGD 01/01 E--Normal G--Erythema/erosions atop rugae in body c/w stress gastritis. D--Normal bulb. --20F G-tube placed uneventfully. Briefly re-scoped, confirming good placement. Huyen.well. IMP: "Stress" gastritis. Successful PEG. REC: OK for water/meds per tube today. If no issues, can start feedings in AM. No anticoagulants until Saturday. PE: GEN: intubated LUNGS: vent HEART: RRR ABD: soft, non-distended, PEG in place - gauze w/ a little dried blood removed from under bumper, site clean/dry NEURO/PSYCH: sedated A/P: CVA s/p PEG AMS/resp failure -- Start tube feeds. Justicifation of Admission Dx: Justifications for Admission: Justification of Admission Dx: Yes Stroke - Ischemic: Stroke-Ischemic SHANICE RAE Jan 02, 2022 10:04
--- NOTE | 2022-01-02 10:42 | PDOC ---
PULMONARY PROGRESS NOTES DATE: 01/02/22 TIME: 10:41 Subjective Patient is off of sodium bicarb, sedated Assist-control ventilation Vitals Vital Signs Date Time Temp Pulse Resp B/P (MAP) Pulse Ox O2 Delivery O2 Flow Rate FiO2 01/02/22 10:06 100 Ventilator 01/02/22 10:00 59 19 178/71 01/02/22 08:00 98.4 98.4 Comments Patient is unable to perform review of systems secondary to current clinical state General: Lethargic Lungs: Crackles, Other (decreased base ) Extremities: Other (trace BLE and BUE ) Skin: Warm, Dry Labs Laboratory Tests Test 12/31/21 12:02 12/31/21 17:44 12/31/21 23:37 01/01/22 05:45 Glucose (Fingerstick) 80 mg/dL (70-99) 122 mg/dL (70-99) 142 mg/dL (70-99) Sodium Level 154 mmol/L (136-145) Potassium Level 3.1 mmol/L (3.5-5.1) Chloride Level 116 mmol/L (98-107) Carbon Dioxide Level 27 mmol/L (21-32) Anion Gap 11 (6-14) Blood Urea Nitrogen 34 mg/dL (7-20) Creatinine 2.4 mg/dL (0.6-1.0) Estimated GFR (Cockcroft-Gault) 21.1 Glucose Level 188 mg/dL (70-99) Calcium Level 7.4 mg/dL (8.5-10.1) Magnesium Level 2.3 mg/dL (1.8-2.4) Test 01/01/22 05:57 01/01/22 07:45 01/01/22 10:05 01/01/22 11:49 Glucose (Fingerstick) 178 mg/dL (70-99) 168 mg/dL (70-99) O2 Saturation 96 % (92-99) Arterial Blood pH 7.47 (7.35-7.45) Arterial Blood pCO2 at Patient Temp 36 mmHg (35-46) Arterial Blood pO2 at Patient Temp 88 mmHg (75-108) Arterial Blood HCO3 26 mmol/L (21-28) Arterial Blood Base Excess 2 mmol/L (-3-3) FiO2 35 White Blood Count 7.0 x10^3/uL (4.0-11.0) Red Blood Count 2.96 x10^6/uL (3.50-5.40) Hemoglobin 8.6 g/dL (12.0-15.5) Hematocrit 25.7 % (36.0-47.0) Mean Corpuscular Volume 87 fL (79-100) Mean Corpuscular Hemoglobin 29 pg (25-35) Mean Corpuscular Hemoglobin Concent 33 g/dL (31-37) Red Cell Distribution Width 14.6 % (11.5-14.5) Platelet Count 150 x10^3/uL (140-400) Prothrombin Time 12.8 SEC (11.7-14.0) Prothromb Time International Ratio 1.0 (0.8-1.1) Vancomycin Level Trough 27.4 mcg/mL (10.0-20.0) Vancomycin Last Dose Date 12/31/21 Vancomycin Last Dose Time 1100 Test 01/01/22 17:08 01/01/22 23:40 01/02/22 05:40 01/02/22 06:01 Glucose (Fingerstick) 165 mg/dL (70-99) 187 mg/dL (70-99) 114 mg/dL (70-99) Sodium Level 150 mmol/L (136-145) Potassium Level 3.1 mmol/L (3.5-5.1) Chloride Level 114 mmol/L (98-107) Carbon Dioxide Level 27 mmol/L (21-32) Anion Gap 9 (6-14) Blood Urea Nitrogen 34 mg/dL (7-20) Creatinine 2.3 mg/dL (0.6-1.0) Estimated GFR (Cockcroft-Gault) 22.2 Glucose Level 116 mg/dL (70-99) Calcium Level 7.7 mg/dL (8.5-10.1) Phosphorus Level 4.0 mg/dL (2.6-4.7) Albumin 1.3 g/dL (3.4-5.0) Test 01/02/22 07:55 O2 Saturation 93 % (92-99) Arterial Blood pH 7.41 (7.35-7.45) Arterial Blood pCO2 at Patient Temp 38 mmHg (35-46) Arterial Blood pO2 at Patient Temp 71 mmHg (75-108) Arterial Blood HCO3 24 mmol/L (21-28) Arterial Blood Base Excess -1 mmol/L (-3-3) FiO2 35 Laboratory Tests Test 01/01/22 11:49 01/01/22 17:08 01/01/22 23:40 01/02/22 05:40 Glucose (Fingerstick) 168 mg/dL (70-99) 165 mg/dL (70-99) 187 mg/dL (70-99) Sodium Level 150 mmol/L (136-145) Potassium Level 3.1 mmol/L (3.5-5.1) Chloride Level 114 mmol/L (98-107) Carbon Dioxide Level 27 mmol/L (21-32) Anion Gap 9 (6-14) Blood Urea Nitrogen 34 mg/dL (7-20) Creatinine 2.3 mg/dL (0.6-1.0) Estimated GFR (Cockcroft-Gault) 22.2 Glucose Level 116 mg/dL (70-99) Calcium Level 7.7 mg/dL (8.5-10.1) Phosphorus Level 4.0 mg/dL (2.6-4.7) Albumin 1.3 g/dL (3.4-5.0) Test 01/02/22 06:01 01/02/22 07:55 Glucose (Fingerstick) 114 mg/dL (70-99) O2 Saturation 93 % (92-99) Arterial Blood pH 7.41 (7.35-7.45) Arterial Blood pCO2 at Patient Temp 38 mmHg (35-46) Arterial Blood pO2 at Patient Temp 71 mmHg (75-108) Arterial Blood HCO3 24 mmol/L (21-28) Arterial Blood Base Excess -1 mmol/L (-3-3) FiO2 35 Medications Active Scripts Medications Dose Route/Sig Max Daily Dose Days Date Category Dose Instructions Montelukast Sodium 10 Mg Tablet 1 Tab PO DAILY 12/24/21 Reported Stool Softener (Docusate Sodium) 50 Mg Capsule 50 Mg PO BID 06/02/19 Reported Wirt 5-325 Tablet (Acetaminophen/Hydrocodone Bitart) 1 Each Tablet 1 Tab PO Q4HRS 06/02/19 Reported LAST DOSE GIVEN: Lantus Solostar (Insulin Glargine,Hum.rec.anlog) 100 Unit/1 Ml Insuln.pen 21 Unit SQ QHS 06/02/19 Reported Culturelle (Lactobacillus Rhamnosus Gg) 1 Each Capsule 1 Each PO DAILY 06/01/19 Reported Alive Once Daily Women 50 Plus (Mv-Mn/Folic Acid/Vit K/[id number]) 1 Each Tablet 1 Each PO DAILY 06/01/19 Reported Wirt 5-325 Tablet (Acetaminophen/Hydrocodone Bitart) 1 Each Tablet 1 Tab PO PRN Q6HRS PRN 06/01/19 Reported Tizanidine Hcl 4 Mg Tablet 2 Tab PO TID PRN 06/01/19 Reported Proair Hfa Inhaler (Albuterol Sulfate) 8.5 Gm Hfa.aer.ad 1 Puff INH PRN Q6HRS PRN 01/19/19 Reported Montelukast Sodium Tablet (Montelukast Sodium) 10 Mg Tablet 1 Tab PO DAILY 01/19/19 Reported Losartan-Hctz 100-25 Mg Tab (Losartan/Hydrochlorothiazide) 1 Each Tablet 1 Tab PO DAILY 01/19/19 Reported Protonix (Pantoprazole Sodium) 20 Mg Tablet.dr 1 Tab PO DAILY 01/19/19 Reported Vitamin D3 (Cholecalciferol (Vitamin D3)) 1,000 Unit Tablet 1 Tab PO DAILY 01/19/19 Reported Cetirizine Hcl 10 Mg Tablet 1 Tab PO DAILY 01/19/19 Reported Janumet 50-1,000 Mg Tablet (Sitagliptin Phos/Metformin Hcl) 1 Each Tablet 1 Tab PO BID 01/19/19 Reported Impression . Acute hypoxemic respiratory failure multifactorial metabolic encephalopathy Acute kidney injury, per nephrology Possible sepsis Hypomagnesemia hypokalemia Uncontrolled hypertension Severe metabolic acidosis CVA--positive MRI 12/25/2021, see MRI report COPD Thyroid disorder Status post PEG Plan . Updated 01/02 Sedation holiday Suspect patient may need a trach ABG noted pH 7.41 DNR Monitor sodium, monitor creatinine CT abdomen no evidence of ischemia Continue empiric antibiotics Overall prognosis is poor Discussed with RN Discussion: Patient was a rapid response overnight 12/29/2021 for altered mental status/hypoxia, and initial work-up appeared benign, patient was placed on BiPAP, ABG revealed metabolic acidosis. Patient had ongoing metabolic acidosis and worsening mental status and hypoxia and was transferred to the intensive care unit this morning 12/30/2021 approximately 9:30 AM. PLAN 12/30/21: Continue current support with BiPAP, follow ABG/chest x-ray, repeat ABG reviewed, with improvement in acidosis Will wean FiO2 to keep sats greater than 90% We will proceed with a CT of head for new/worsening unresponsiveness, and follow neurology recommendations, patient recently diagnosed with new onset CVA with positive MRI 12/25/2021, see MRI report Metabolic acidosis/acute kidney injury, will consult nephrology for further recommendations, placed on bicarb drip, Berumen catheter for accurate intake and output Continue hypertensive medications for underlying hypertension Concern for early sepsis, start empiric antibiotics with vancomycin and Zosyn, follow cultures, treat accordingly and follow clinical course, consider infectious disease consultation if not improved Discern for thyroid disorder, pending cortisol, ESR, TSH and free T4, other work-up per primary care Rule out ischemic bowel/other intra-abdominal process, pending CT abdomen and pelvis DVT/GI prophylaxis CODE STATUS full Critical care time 65 minutes, reviewing diagnostics, laboratory data, patient assessment, and reviewing with the care team. VAIBHAV PARIKH MD Jan 02, 2022 10:42
--- NOTE | 2022-01-02 11:00 | PDOC ---
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 Acute respiratory failure requiring BiPAP support Concern for early sepsis Dehydration Metabolic acidosis Acute electrolyte derangement, hypernatremia and hyperchloremia-possible dehydration History hypertension History of diabetes diabetes History of Present Illness History of Present Illness 01/02/2022 Patient seen and examined in the ICU She got her PEG yesterday but then apparently aspirated and had to be intubated Vent settings as follows AC/16/400/30 5% with 5 of PEEP Sedated with propofol fentanyl Has IV Zosyn hanging D5 water also hanging Creatinine bumped up a little bit (I called the pharmacy working to stop the Vanco and start Zyvox) Chart reviewed Discussed with RN She is critically ill 01/01/2022 Patient seen and examined in the ICU She remains on the vent AC/16/400/30 5% with 5 of PEEP Art line in place Sedated with propofol and fentanyl Has half-normal saline hanging with Zosyn Berumen to bedside drainage Chart reviewed Discussed with RN 12/31 Patient evaluated examined at bedside. She required intubation overnight and is currently intubated and sedated. Patient was intubated after family decided on continuing full treatment measures. Blood pressure improved. When seen patient unresponsive no withdrawal to pain. Pupils do still have reflex. Continue current. Nephrology pulmonology following. 45 minutes critical care time 12/30/2021 Rapid response called last night for desaturations down to the 70s. Labs were obtained showing hypernatremia. Patient still unresponsive and placed on BiPAP. ABG showed 7.1 7/40/74/14. Concern for aspiration, worsening of stroke, or dehydration. Nephrology and pulmonology consulted. Patient transferred to the ICU. Empiric IV antibiotics are started and blood cultures are obtained. D5 bicarb drip started. Patient's chart, labs, images were reviewed and discussed with RN 12/29/21 No acute events overnight. Patient seen examined bedside. Sleeping in bed and unable to be arousable with sternal rub or to voice. Patient unable to follow through with speech evaluation. Will need to consider TPN for nutrition. Medicaid application pending. Patient's chart, labs, images were reviewed and discussed with RN 12/28 Patient evaluated examined at bedside. She was sleeping in bed unable to get h er to open her eyes even with sternal rub. Some withdrawal to pain in the right lower extremity none in right upper extremity. Unable to follow commands to see if she could hold her arm against gravity. Still having some trouble controlling blood pressure is still on Cardene drip for now. Will schedule Vasotec and try to start weaning off the Cardene drip. 12/27 Evaluated and examined at bedside. She was resting in bed not easily awoken and still cannot provide me really with any history given her aphasic state. She did have some withdrawal to pain in the right lower extremity still no movement and right upper. PT OT. Neuro following. Plan discussed bedside RN. 12/26 Evaluated and examined at bedside. Is a bit lethargic today difficulty staying awake this morning. MRI showing acute infarcts. Neurology continues to follow. Patient remains aphasic. Therapy modalities. Blood pressure control with IV until able to take oral Okay to transfer out of ICU to CVC if bed is needed Vitals/I&O Vitals/I&O: Vital Signs Date Time Temp Pulse Resp B/P (MAP) Pulse Ox O2 Delivery O2 Flow Rate FiO2 01/02/22 10:06 100 Ventilator 01/02/22 10:00 59 19 178/71 01/02/22 08:00 98.4 98.4 I & O 01/01/22 01/01/22 01/02/22 15:00 23:00 07:00 Intake Total 980 ml 719.18 ml 1245.99 ml Output Total 180 ml 70 ml 139 ml Balance 800 ml 649.18 ml 1106.99 ml Physical Exam General: Other (Sedated on the vent) Heart: Regular rate Lungs: Crackles, Other (decreased base ) Abdomen: Other (New PEG tube in place) Extremities: No clubbing Skin: No breakdown Labs Labs: Laboratory Tests Test 01/01/22 11:49 01/01/22 17:08 01/01/22 23:40 01/02/22 05:40 Glucose (Fingerstick) 168 mg/dL (70-99) 165 mg/dL (70-99) 187 mg/dL (70-99) Sodium Level 150 mmol/L (136-145) Potassium Level 3.1 mmol/L (3.5-5.1) Chloride Level 114 mmol/L (98-107) Carbon Dioxide Level 27 mmol/L (21-32) Anion Gap 9 (6-14) Blood Urea Nitrogen 34 mg/dL (7-20) Creatinine 2.3 mg/dL (0.6-1.0) Estimated GFR (Cockcroft-Gault) 22.2 Glucose Level 116 mg/dL (70-99) Calcium Level 7.7 mg/dL (8.5-10.1) Phosphorus Level 4.0 mg/dL (2.6-4.7) Albumin 1.3 g/dL (3.4-5.0) Test 01/02/22 06:01 01/02/22 07:55 Glucose (Fingerstick) 114 mg/dL (70-99) O2 Saturation 93 % (92-99) Arterial Blood pH 7.41 (7.35-7.45) Arterial Blood pCO2 at Patient Temp 38 mmHg (35-46) Arterial Blood pO2 at Patient Temp 71 mmHg (75-108) Arterial Blood HCO3 24 mmol/L (21-28) Arterial Blood Base Excess -1 mmol/L (-3-3) FiO2 35 Assessment and Plan Assessmemt and Plan Stroke Respiratory failure New PEG Expressive aphasia unilateral weakness secondary to 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 Sepsis Dehydration Hyponatremia Hypokalemia Hypomagnesemia Metabolic acidosis Acute electrolyte derangement, hypernatremia and hyperchloremia-possible dehydration History hypertension History of diabetes diabetes Plan ICU monitoring Vent weaning Continue sedation with propofol fentanyl Monitor art line Maintain Berumen [place] to start PEG feeds Zyvox and Zosyn Follow cultures Appreciate subspecialist input (nephrology gastroenterology neurology and pulmonary medicine) Trend labs Statins Aspirin DVT prophylaxis with Tac[place] Full code Sliding-scale insulin Prognosis guarded CC time 31 minutes Comment Review of Relevant I have reviewed the following items chino (where applicable) has been applied. Medications: Current Medications Medications (Trade) Dose Ordered Sig/Fabio Route PRN Reason Start Time Stop Time Status Last Admin Dose Admin Vancomycin HCl 1 gm/Sodium Chloride 250 ml @ 250 mls/hr Q36H IV 01/01/22 23:00 01/02/22 09:58 DC 01/01/22 22:52 Furosemide (Lasix) 80 mg 1X ONCE IVP 01/02/22 09:30 01/02/22 09:31 DC 01/02/22 09:41 Potassium Bicarbonate (Potassium Effervescent Tablet) 40 meq 1X ONCE PEG 01/02/22 09:30 01/02/22 09:31 DC 01/02/22 09:40 Justifications for Admission TIA Indications Persistent neurologic signs?: Yes Justification for admission: There is persistence of patient's focal neurologic signs or symptoms or there is concern for recurrence of patient's neurological signs and symptoms. Severe hypertension?: Yes Justification for admission: There is concern for patient's severe hypertension of (>180/110mmHg--please indicate patient's BP here) that has not been controlled by ED treatment. Patient needs inpatient level of care for further evaluation and management. Other Justification JAGDISH ONEIL III DO Jan 02, 2022 11:00
--- NOTE | 2022-01-02 14:10 | NUR ---
1300- sedation off. 1350 bedside, patient with eyes open staring at the ceiling, unable to track or follow commands. BP 213/102 HR 96 Propofol restarted at 10mcg/kg/min, Fentanyl 50mcg/hr.
--- NOTE | 2022-01-02 14:51 | PDOC ---
PROGRESS NOTES Date of Service DATE: 01/02/22 TIME: 14:46 Assessment Patient is a 51-year-old woman who has sustained bilateral thalamic strokes with the left larger than the right. The thalamus is a major relay center. Strokes in this region can sometimes cause sedation and poor responsiveness. I believe the fact that she has had bilateral strokes is making the situation worse. Nutritional deficiency has been addressed with a PEG. She is on a titration of tube feeding. She is still sedated at the time of my evaluation with propofol 10 mcg/kilogram/minute and fentanyl 25 mcg/h. This really is not a great amount of sedation but she still does not have the ability to wake up or interact. Prognosis remains very guarded to poor. Plan Continue to keep sedation to his lower level as she can tolerate. She should continue to be stimulated by the therapist to determine if she can awake. We will continue to titrate nutritional support. I will reevaluate. Subjective Intubated, sedated and nonverbal. Objective Vital Signs Date Time Temp Pulse Resp B/P (MAP) Pulse Ox O2 Delivery O2 Flow Rate FiO2 01/02/22 14:00 63 22 154/64 100 Ventilator 01/02/22 12:00 98.6 98.6 Intake and Output 01/02/22 07:00 Intake Total 2945.17 ml Output Total 389 ml Balance 2556.17 ml IV Total 2195.17 ml Tube Feeding 750 ml Output Urine Total 389 ml PHYSICAL EXAM She was intubated, ventilated and sedated. Her eyes were closed and there was no opening. She did not have any spontaneous movement of her body. When held open the eyes were disconjugate. Pupils were 3 to 4 mm and reacted. She did not respond to visual threat or loud clap. Corneal reflex was present. The face appeared symmetric. Tone was more increased on the right side than the left. Toes were upgoing bilaterally. Nailbed pressure did not provoke a response or any withdrawal. Sternal rub did not provoke any alerting response. Review of Relevant I have reviewed the following items chino (where applicable) has been applied. Labs Laboratory Tests Test 12/31/21 17:44 12/31/21 23:37 01/01/22 05:45 01/01/22 05:57 Glucose (Fingerstick) 122 mg/dL (70-99) 142 mg/dL (70-99) 178 mg/dL (70-99) Sodium Level 154 mmol/L (136-145) Potassium Level 3.1 mmol/L (3.5-5.1) Chloride Level 116 mmol/L (98-107) Carbon Dioxide Level 27 mmol/L (21-32) Anion Gap 11 (6-14) Blood Urea Nitrogen 34 mg/dL (7-20) Creatinine 2.4 mg/dL (0.6-1.0) Estimated GFR (Cockcroft-Gault) 21.1 Glucose Level 188 mg/dL (70-99) Calcium Level 7.4 mg/dL (8.5-10.1) Magnesium Level 2.3 mg/dL (1.8-2.4) Test 01/01/22 07:45 01/01/22 10:05 01/01/22 11:49 01/01/22 17:08 O2 Saturation 96 % (92-99) Arterial Blood pH 7.47 (7.35-7.45) Arterial Blood pCO2 at Patient Temp 36 mmHg (35-46) Arterial Blood pO2 at Patient Temp 88 mmHg (75-108) Arterial Blood HCO3 26 mmol/L (21-28) Arterial Blood Base Excess 2 mmol/L (-3-3) FiO2 35 White Blood Count 7.0 x10^3/uL (4.0-11.0) Red Blood Count 2.96 x10^6/uL (3.50-5.40) Hemoglobin 8.6 g/dL (12.0-15.5) Hematocrit 25.7 % (36.0-47.0) Mean Corpuscular Volume 87 fL (79-100) Mean Corpuscular Hemoglobin 29 pg (25-35) Mean Corpuscular Hemoglobin Concent 33 g/dL (31-37) Red Cell Distribution Width 14.6 % (11.5-14.5) Platelet Count 150 x10^3/uL (140-400) Prothrombin Time 12.8 SEC (11.7-14.0) Prothromb Time International Ratio 1.0 (0.8-1.1) Vancomycin Level Trough 27.4 mcg/mL (10.0-20.0) Vancomycin Last Dose Date 12/31/21 Vancomycin Last Dose Time 1100 Glucose (Fingerstick) 168 mg/dL (70-99) 165 mg/dL (70-99) Test 01/01/22 23:40 01/02/22 05:40 01/02/22 06:01 01/02/22 07:55 Glucose (Fingerstick) 187 mg/dL (70-99) 114 mg/dL (70-99) Sodium Level 150 mmol/L (136-145) Potassium Level 3.1 mmol/L (3.5-5.1) Chloride Level 114 mmol/L (98-107) Carbon Dioxide Level 27 mmol/L (21-32) Anion Gap 9 (6-14) Blood Urea Nitrogen 34 mg/dL (7-20) Creatinine 2.3 mg/dL (0.6-1.0) Estimated GFR (Cockcroft-Gault) 22.2 Glucose Level 116 mg/dL (70-99) Calcium Level 7.7 mg/dL (8.5-10.1) Phosphorus Level 4.0 mg/dL (2.6-4.7) Albumin 1.3 g/dL (3.4-5.0) O2 Saturation 93 % (92-99) Arterial Blood pH 7.41 (7.35-7.45) Arterial Blood pCO2 at Patient Temp 38 mmHg (35-46) Arterial Blood pO2 at Patient Temp 71 mmHg (75-108) Arterial Blood HCO3 24 mmol/L (21-28) Arterial Blood Base Excess -1 mmol/L (-3-3) FiO2 35 Test 01/02/22 12:12 Glucose (Fingerstick) 151 mg/dL (70-99) Laboratory Tests Test 01/01/22 17:08 01/01/22 23:40 01/02/22 05:40 01/02/22 06:01 Glucose (Fingerstick) 165 mg/dL (70-99) 187 mg/dL (70-99) 114 mg/dL (70-99) Sodium Level 150 mmol/L (136-145) Potassium Level 3.1 mmol/L (3.5-5.1) Chloride Level 114 mmol/L (98-107) Carbon Dioxide Level 27 mmol/L (21-32) Anion Gap 9 (6-14) Blood Urea Nitrogen 34 mg/dL (7-20) Creatinine 2.3 mg/dL (0.6-1.0) Estimated GFR (Cockcroft-Gault) 22.2 Glucose Level 116 mg/dL (70-99) Calcium Level 7.7 mg/dL (8.5-10.1) Phosphorus Level 4.0 mg/dL (2.6-4.7) Albumin 1.3 g/dL (3.4-5.0) Test 01/02/22 07:55 01/02/22 12:12 O2 Saturation 93 % (92-99) Arterial Blood pH 7.41 (7.35-7.45) Arterial Blood pCO2 at Patient Temp 38 mmHg (35-46) Arterial Blood pO2 at Patient Temp 71 mmHg (75-108) Arterial Blood HCO3 24 mmol/L (21-28) Arterial Blood Base Excess -1 mmol/L (-3-3) FiO2 35 Glucose (Fingerstick) 151 mg/dL (70-99) Microbiology 12/30/21 Blood Culture - Preliminary, Resulted NO GROWTH AFTER 3 DAYS Medications Current Medications Hydralazine HCl (Apresoline Inj) 10 mg PRN Q4HRS PRN IVP ELEVATED BP, SEE COMMENTS Last administered on 12/30/21at 18:15; Start 12/24/21 at 20:15 Acetaminophen (Tylenol) 650 mg PRN Q6HRS PRN PO MILD PAIN / TEMP > 100.3'F; Start 12/24/21 at 20:15 Ondansetron HCl (Zofran) 4 mg PRN Q4HRS PRN IVP NAUSEA/VOMITING; Start 12/24/21 at 20:15 Olanzapine (ZyPREXA ZYDIS) 5 mg PRN BID PRN PO ANXIETY / AGITATION Last administered on 12/24/21at 22:49; Start 12/24/21 at 20:15 Bisacodyl (Dulcolax Supp) 10 mg PRN DAILY PRN [place] CONSTIPATION; Start 12/24/21 at 20:15 Nicardipine HCl 50 mg/Sodium Chloride 250 ml @ 25 mls/hr CONT PRN PRN IV PER PROTOCOL Last administered on 12/27/21at 15:42; Start 12/24/21 at 20:15; Stop 12/30/21 at 19:39; Status DC Atorvastatin Calcium (Lipitor) 80 mg QHS PO Last administered on 12/31/21at 21:16; Start 12/24/21 at 21:00 Acetaminophen (Tylenol) 650 mg PRN Q6HRS PRN PO MILD PAIN / TEMP > 100.3'F; Start 12/24/21 at 20:15; Stop 12/24/21 at 20:17; Status DC Bisacodyl (Dulcolax Supp) 10 mg PRN DAILY PRN TX CONSTIPATION; Start 12/24/21 at 20:15; Status UNV Famotidine (Pepcid Vial) 20 mg BID IVP Last administered on 12/26/21at 08:38; Start 12/24/21 at 21:00; Stop 12/26/21 at 08:51; Status DC Aspirin (Aspirin Rectal Supp) 300 mg PRN DAILY PRN TX IF UNABLE TO TAKE PO Last administered on 12/29/21at 10:28; Start 12/24/21 at 20:15 Acetaminophen (Tylenol Supp) 650 mg PRN Q6HRS PRN TX MILD PAIN / TEMP > 100.3'F; Start 12/24/21 at 20:15 Insulin Human Lispro (HumaLOG) 0-9 UNITS Q6HRS SQ Last administered on 01/02/22at 12:16; Start 12/25/21 at 00:00 Dextrose (Dextrose 50%-Water Syringe) 12.5 gm PRN Q15MIN PRN IV SEE COMMENTS; Start 12/24/21 at 20:15 Dextrose (Iv Dextrose 5%) 250 ml PRN Q15MIN PRN IV SEE COMMENTS; Start 12/24/21 at 20:15 Potassium Chloride/Water 100 ml @ 100 mls/hr Q1H IV ; Start 12/25/21 at 09:00; Stop 12/25/21 at 10:59; Status UNV Potassium Chloride/Water 100 ml @ 100 mls/hr Q1H IV Last administered on 12/25/21at 13:16; Start 12/25/21 at 09:00; Stop 12/25/21 at 12:59; Status DC Cetirizine HCl (ZyrTEC) 10 mg DAILY PO Last administered on 01/02/22at 09:40; Start 12/25/21 at 10:00 Vitamin D (Vitamin D3) 1,000 unit DAILY PO Last administered on 01/02/22at 09:39; Start 12/25/21 at 10:00 Montelukast Sodium (Singulair) 10 mg DAILY PO Last administered on 01/02/22at 09:40; Start 12/25/21 at 10:00 Losartan Potassium (Cozaar) 100 mg DAILY PO ; Start 12/25/21 at 10:00; Stop 12/31 at 14:46; Status DC Pantoprazole Sodium (Protonix) 40 mg DAILYAC PO ; Start 12/25/21 at 11:30; Stop 12/29/21 at 12:07; Status DC Lorazepam (Ativan Inj) 2 mg PRN Q4HRS PRN IVP ANXIETY / AGITATION Last administered on 12/29/21at 20:16; Start 12/25/21 at 10:00 Hydrochlorothiazide (Hydrodiuril) 25 mg DAILY PO ; Start 12/25/21 at 10:00; Stop 12/31/21 at 14:47; Status DC Sodium Chloride 1,000 ml @ 50 mls/hr Q20H IV Last administered on 12/29/21at 08:14; Start 12/25/21 at 17:00; Stop 12/30/21 at 10:35; Status DC Famotidine (Pepcid Vial) 20 mg DAILY IVP Last administered on 01/02/22at 09:39; Start 12/27/21 at 09:00 Labetalol HCl (Normodyne Iv Push) 10 mg PRN Q2HR PRN IVP HYPERTENSION (1ST) Last administered on 12/30/21 15:22; Start 12/26/21 at 13:15 Heparin Sodium (Porcine) (Heparin Sodium) 5,000 unit Q8HRS SQ Last administered on 01/01/22at 05:59; Start 12/26/21 at 14:00; Status Hold Labetalol HCl (Normodyne Iv Push) 20 mg PRN Q2HR PRN IVP HYPERTENSION (1ST) Last administered on 12/30/21at 17:45; Start 12/26/21 at 13:30 Clonidine HCl (Catapres Tts-2) 1 patch WEEKLY TD Last administered on 01/02/22 09:40; Start 12/26/21 at 15:00 Nicotine (Nicoderm Cq 21mg) 1 patch DAILY TD Last administered on 12/29/21at 08:16; Start 12/26/21 at 15:00 Nitroglycerin (Nitro-Bid Oint) 1 inch Q6HRS TP Last administered on 01/02/22at 12:15; Start 12/26/21 at 18:00 Enalaprilat (Vasotec Inj) 1.25 mg Q6HRS IVP Last administered on 12/30/21at 12:54; Start 12/28/21 at 12:00; Stop 12/31/21 at 14:47; Status DC Cefazolin Sodium (Ancef) 1 gm 1X ONCE IVP ; Start 01/01/22 at 13:30; Stop 01/01/22 at 08:01; Status DC Albuterol Sulfate (Ventolin Neb Soln) 2.5 mg RTQID NEB Last administered on 12/30/21at 07:30; Start 12/30/21 at 08:00; Stop 12/30/21 at 11:22; Status DC Albuterol Sulfate (Ventolin Neb Soln) 2.5 mg PRN Q4HRS PRN NEB SHORTNESS OF BREATH Last administered on 12/30/21at 01:55; Start 12/30/21 at 02:00 Piperacillin Sod/ Tazobactam Sod (Zosyn Per Pharmacy) 1 each PRN DAILY PRN MC SEE COMMENTS; Start 12/30/21 at 04:30 Potassium Chloride/Water 100 ml @ 100 mls/hr Q1H IV Last administered on 12/30/21at 09:25; Start 12/30/21 at 05:00; Stop 12/30/21 at 08:59; Status DC Piperacillin Sod/ Tazobactam Sod 3.375 gm/Sodium Chloride 50 ml @ 100 mls/hr Q6HRS IV Last administered on 01/02/22at 12:14; Start 12/30/21 at 06:00 Sodium Chloride 1,000 ml @ 75 mls/hr [id number] IV ; Start 12/30/21 at 08:30; Stop 12/30/21 at 11:22; Status DC Sodium Bicarbonate (Sodium Bicarb Adult 8.4% Syr) 50 meq 1X ONCE IV Last administered on 12/30/21at 08:30; Start 12/30/21 at 08:30; Stop 12/30/21 at 08:40; Status DC Albuterol/ Ipratropium (Duoneb) 3 ml RTQID NEB Last administered on 01/02/22at 11:40; Start 12/30/21 at 12:00 Vancomycin HCl (Vanco Per Pharmacy) 1 each PRN DAILY PRN MC SEE COMMENTS Last administered on 01/01/22at 12:42; Start 12/30/21 at 10:30; Stop 01/02/22 at 09:58; Status DC Sodium Bicarbonate (Sodium Bicarb Adult 8.4% Syr) 50 meq 1X ONCE IV Last administered on 12/30/21at 11:10; Start 12/30/21 at 10:30; Stop 12/30/21 at 10:34; Status DC Vancomycin HCl 1.5 gm/Sodium Chloride 500 ml @ 250 mls/hr 1X ONCE IV Last administered on 12/30/21at 10:51; Start 12/30/21 at 11:00; Stop 12/30/21 at 12:59; Status DC Sodium Bicarbonate 150 meq/Dextrose 1,150 ml @ 75 mls/hr [id number] IV Last administered on 12/31/21at 03:04; Start 12/30/21 at 11:00; Stop 12/31/21 at 08:24; Status DC Aspirin (Aspirin Rectal Supp) 300 mg DAILY TX Last administered on 01/02/22at 09:42; Start 12/30/21 at 11:00 Vancomycin HCl 1 gm/Sodium Chloride 250 ml @ 250 mls/hr Q24H IV Last administered on 12/31/21at 11:19; Start 12/31/21 at 11:00; Stop 01/01/22 at 11:42; Status DC Vancomycin HCl (Vancomycin Trough Level) 1 each 1X ONCE MC Last administered on 01/01/22at 10:30; Start 01/01/22 at 10:30; Stop 01/01/22 at 10:31; Status DC Lactobacillus Rhamnosus (Culturelle) 1 cap BID PO ; Start 12/30/21 at 21:00; Stop 01/02/22 at 07:33; Status DC Furosemide (Lasix) 40 mg 1X ONCE IVP Last administered on 12/30/21at 18:04; Start 12/30/21 at 17:45; Stop 12/30/21 at 17:46; Status DC Diltiazem HCl 125 mg/Sodium Chloride 125 ml @ 5 mls/hr CONT PRN IV PER PROTOCOL; Start 12/30/21 at 18:15; Stop 12/30/21 at 19:20; Status DC Furosemide (Lasix) 40 mg 1X ONCE IVP Last administered on 12/30/21at 22:24; Start 12/30/21 at 19:30; Stop 12/30/21 at 19:38; Status DC Nicardipine HCl 50 mg/Sodium Chloride 250 ml @ 12.5 mls/hr CONT PRN IV PER PROTOCOL; Start 12/30/21 at 19:30 Succinylcholine Chloride (Anectine) 200 mg STK-MED ONCE .ROUTE ; Start 12/30/21 at 19:49; Stop 12/30/21 at 19:49; Status DC Etomidate (Amidate) 20 mg STK-MED ONCE IV ; Start 12/30/21 at 19:49; Stop 12/30/21 at 19:49; Status DC Fentanyl Citrate 30 ml @ 0 mls/hr CONT PRN IV SEE PROTOCOL Last administered on 01/02/22at 03:15; Start 12/30/21 at 21:30 Midazolam HCl 100 ml @ 1 mls/hr CONT PRN IV SEE PROTOCOL; Start 12/30/21 at 21:30 Propofol 100 ml @ 1.917 mls/ hr CONT PRN IV PER PROTOCOL Last administered on 01/02/22at 00:27; Start 12/30/21 at 21:30 Vecuronium [place] (Norcuron Bolus) 6 mg PRN 1X PRN IV VENT INDUCTION; Start 12/30/21 at 21:30; Stop 12/31/21 at 21:29; Status DC Chlorhexidine Gluconate (Peridex) 15 ml BID MM Last administered on 01/01/22at 21:03; Start 12/31/21 at 09:00 Glycerin/ Hypromellose/ Polyethylene (Artificial Tears) 1 drop PRN Q1HR PRN OU DRY EYE; Start 12/30/21 at 21:30 Dexmedetomidine HCl 400 mcg/ Sodium Chloride 100 ml @ 3.195 mls/ hr CONT PRN IV PER PROTOCOL; Start 12/30/21 at 21:30 Midazolam HCl (Versed) 5 mg PRN 1X PRN IVP VENT INDUCTION; Start 12/30/21 at 21:30; Stop 12/31/21 at 21:29; Status DC Sodium Chloride 500 ml @ 500 mls/hr 1X PRN PRN IV SEE COMMENTS; Start 12/30/21 at 21:30 Atropine Sulfate (ATROPINE 0.5mg SYRINGE) 0.5 mg PRN Q5MIN PRN IV SEE COMMENTS; Start 12/30/21 at 21:30 Sodium Chloride 1,000 ml @ 75 mls/hr [id number] IV Last administered on 01/01/22at 04:01; Start 12/31/21 at 08:30; Stop 01/01/22 at 10:39; Status DC Potassium Bicarbonate (Potassium Effervescent Tablet) 40 meq 1X ONCE PEG Last administered on 12/31/21at 09:07; Start 12/31/21 at 08:30; Stop 12/31/21 at 08:31; Status DC Magnesium Sulfate 50 ml @ 25 mls/hr 1X ONCE IV Last administered on 12/31/21at 09:06; Start 12/31/21 at 08:30; Stop 12/31/21 at 10:29; Status DC Etomidate (Amidate) 20 mg STK-MED ONCE IV ; Start 12/30/21 at 20:00; Stop 01/01/22 at 09:12; Status DC Succinylcholine Chloride (Anectine) 200 mg STK-MED ONCE .ROUTE ; Start 12/30/21 at 20:00; Stop 01/01/22 at 09:12; Status DC Dextrose 1,000 ml @ 75 mls/hr [id number] IV Last administered on 01/02/22at 05:15; Start 01/01/22 at 10:45 Vancomycin HCl 1 gm/Sodium Chloride 250 ml @ 250 mls/hr Q36H IV Last administered on 01/01/22at 22:52; Start 01/01/22 at 23:00; Stop 01/02/22 at 09:58; Status DC Vancomycin HCl (Vancomycin Trough Level) 1 each 1X ONCE MC ; Start 01/03/22 at 10:30; Stop 01/03/22 at 10:31; Status Cancel Sodium Bicarbonate (Sodium Bicarb Adult 8.4% Syr) 50 meq STK-MED ONCE .ROUTE ; Start 12/30/21 at 20:00; Stop 01/01/22 at 13:17; Status DC Magnesium Sulfate/ Dextrose (Magnesium Sulfate PREMIX 1GM) 1 gm STK-MED ONCE IV ; Start 12/30/21 at 20:00; Stop 01/01/22 at 13:17; Status DC Epinephrine HCl (EPINEPHrine SYRINGE) 3 mg STK-MED ONCE .ROUTE ; Start 12/30/21 at 20:00; Stop 01/01/22 at 13:17; Status DC Amiodarone HCl (Cordarone) 300 mg STK-MED ONCE .ROUTE ; Start 12/30/21 at 20:00; Stop 01/01/22 at 13:17; Status DC Furosemide (Lasix) 80 mg 1X ONCE IVP Last administered on 01/02/22at 09:41; Start 01/02/22 at 09:30; Stop 01/02/22 at 09:31; Status DC Potassium Bicarbonate (Potassium Effervescent Tablet) 40 meq 1X ONCE PEG Last administered on 01/02/22at 09:40; Start 01/02/22 at 09:30; Stop 01/02/22 at 09:31; Status DC Linezolid/Dextrose 300 ml @ 300 mls/hr Q12HR IV ; Start 01/02/22 at 21:00 Active Scripts Active Reported Montelukast Sodium 10 Mg Tablet 1 Tab PO DAILY Stool Softener (Docusate Sodium) 50 Mg Capsule 50 Mg PO BID [place] 5-325 Tablet (Acetaminophen/Hydrocodone Bitart) 1 Each Tablet 1 Tab PO Q4HRS LAST DOSE GIVEN: Lantus Solostar (Insulin Glargine,Hum.rec.anlog) 100 Unit/1 Ml Insuln.pen 21 Unit SQ QHS Culturelle (Lactobacillus Rhamnosus Gg) 1 Each Capsule 1 Each PO DAILY Alive Once Daily Women 50 Plus (Mv-Mn/Folic Acid/Vit [id number]) 1 Each Tablet 1 Each PO DAILY [place] 5-325 Tablet (Acetaminophen/Hydrocodone Bitart) 1 Each Tablet 1 Tab PO PRN Q6HRS PRN Tizanidine Hcl 4 Mg Tablet 2 Tab PO TID PRN Proair Hfa Inhaler (Albuterol Sulfate) 8.5 Gm Hfa.aer.ad 1 Puff INH PRN Q6HRS PRN Montelukast Sodium Tablet (Montelukast Sodium) 10 Mg Tablet 1 Tab PO DAILY Losartan-Hctz 100-25 Mg Tab (Losartan/Hydrochlorothiazide) 1 Each Tablet 1 Tab PO DAILY Protonix (Pantoprazole Sodium) 20 Mg Tablet.dr 1 Tab PO DAILY Vitamin D3 (Cholecalciferol (Vitamin D3)) 1,000 Unit Tablet 1 Tab PO DAILY Cetirizine Hcl 10 Mg Tablet 1 Tab PO DAILY Janumet 50-1,000 Mg Tablet (Sitagliptin Phos/Metformin Hcl) 1 Each Tablet 1 Tab PO BID Vitals/I & O Vital Sign - Last 24 Hours 01/01/22 01/01/22 01/01/22 01/01/22 15:00 15:08 15:35 15:38 Pulse 52 Resp 18 21 21 B/P (MAP) 136/60 Pulse Ox 100 100 100 99 O2 Delivery Ventilator Ventilator Ventilator Ventilator 01/01/22 01/01/22 01/01/22 01/01/22 16:00 17:00 17:51 18:00 Temp 99.0 99.0 Pulse 55 62 76 Resp 20 16 16 B/P (MAP) 149/63 142/54 130/54 Pulse Ox 100 100 100 100 O2 Delivery Ventilator Ventilator Ventilator Ventilator 01/01/22 01/01/22 01/01/22 01/01/22 19:00 20:00 20:00 20:00 Temp 99.1 99.1 Pulse 48 52 52 Resp 19 17 B/P (MAP) 134/56 144/60 (88) 144/60 Pulse Ox 99 100 O2 Delivery Ventilator Ventilator Mechanical Ventilator 01/01/22 01/01/22 01/01/22 01/01/22 20:35 21:00 22:00 22:58 Pulse 48 46 Resp 16 17 B/P (MAP) 132/54 132/54 Pulse Ox 100 100 100 100 O2 Delivery Ventilator Ventilator Ventilator Ventilator 01/01/22 01/02/22 01/02/22 01/02/22 23:00 00:00 00:00 01:00 Temp 98.1 98.1 Pulse 46 48 48 52 Resp 17 16 17 B/P (MAP) 132/56 134/58 (83) 134/58 132/56 Pulse Ox 100 100 100 O2 Delivery Ventilator Ventilator Ventilator 01/02/22 01/02/22 01/02/22 01/02/22 02:00 02:33 03:00 04:00 Temp 98.9 98.9 Pulse 50 48 48 Resp 18 16 16 B/P (MAP) 122/54 126/54 134/58 Pulse Ox 100 100 100 100 O2 Delivery Ventilator Ventilator Ventilator Ventilator 01/02/22 01/02/22 01/02/22 01/02/22 04:00 05:00 05:16 06:00 Pulse 48 48 50 Resp 16 16 B/P (MAP) 134/58 (83) 134/58 132/60 Pulse Ox 100 100 100 O2 Delivery Ventilator Ventilator Ventilator 01/02/22 01/02/22 01/02/22 01/02/22 07:00 07:30 07:30 07:39 Pulse 49 Resp 16 B/P (MAP) 127/54 Pulse Ox 100 99 O2 Delivery Ventilator Mechanical Ventilator Ventilator 01/02/22 01/02/22 01/02/22 01/02/22 08:00 08:00 09:00 10:00 Temp 98.4 98.4 Pulse 52 50 59 Resp 16 16 19 B/P (MAP) 148/62 145/60 178/71 Pulse Ox 100 100 100 O2 Delivery Ventilator Ventilator Ventilator 01/02/22 01/02/22 01/02/22 01/02/22 10:06 11:00 11:37 12:00 Pulse 62 Resp 19 B/P (MAP) 157/66 Pulse Ox 100 100 98 O2 Delivery Ventilator Ventilator Ventilator 01/02/22 01/02/22 01/02/22 01/02/22 12:00 12:15 13:00 13:50 Temp 98.6 98.6 Pulse 55 57 68 98 Resp 16 16 28 B/P (MAP) 165/66 155/64 159/68 213/102 Pulse Ox 100 100 100 O2 Delivery Ventilator Ventilator Ventilator 01/02/22 14:00 Pulse 63 Resp 22 B/P (MAP) 154/64 Pulse Ox 100 O2 Delivery Ventilator Intake and Output 01/01/22 01/01/22 01/02/22 15:00 23:00 07:00 Intake Total 980 ml 719.18 ml 1245.99 ml Output Total 180 ml 70 ml 139 ml Balance 800 ml 649.18 ml 1106.99 ml Justicifation of Admission Dx: Justifications for Admission: Justification of Admission Dx: Yes Stroke - Ischemic: Stroke-Ischemic NATY MANCILLA MD Jan 02, 2022 14:50
--- NOTE | 2022-01-02 15:31 | NUR ---
SS following up with discharge planning. SS reviewed pt chart and discussed with pt RN. Pt is currently on the vent at 35%. Pt on IV Zosyn and IV Zyvox. Pt on Propofol and Fentanyl. Peg in place. Self pay. Med Assist following. SS will continue to follow for discharge planning.
[2022-01-02 17:16] LABS: CALCIUM 7.5 mg/dL (8.5-10.1); CREATININE 2.2 mg/dL (0.6-1.0); GFR 23.3; POTASSIUM 3.4 mmol/L (3.5-5.1)
[2022-01-02] MEDS: ATORVASTATIN CALCIUM 40 MG TABLET. PO SCH (21:07)
[2022-01-03] VITALS (24 sets, daily range): BP systolic 112–204; BP diastolic 46–84
[2022-01-03] MEDS: NITROGLYCERIN OINT 1 GM PACKET. TP SCH ×4 (00:07→17:57)
[2022-01-03] MEDS: PIPERACILLIN/TAZOBACTAM 3.375 GM in IV NORMAL SALINE 50ML 50 ML IV SCH ×5 (00:07→23:59)
[2022-01-03] MEDS: INSULIN LISPRO 300 UNITS/3 ML VIAL. SQ SCH ×4 (00:09→17:56)
[2022-01-03 05:58] LABS: ALBUMIN 1.3 g/dL (3.4-5.0); CALCIUM 7.7 mg/dL (8.5-10.1); CREATININE 2.2 mg/dL (0.6-1.0); GFR 23.3; PHOSPHORUS 4.1 mg/dL (2.6-4.7); POTASSIUM 3.2 mmol/L (3.5-5.1)
[2022-01-03] MEDS: HEPARIN for SUB-Q USE 5,000 UNIT/ML VIAL. SQ SCH ×3 (06:22→22:31)
[2022-01-03] MEDS: IPRATRPIUM/ALBUTEROL 0.5/2.5MG 3 ML NEBU. NEB SCH ×4 (07:46→20:00)
[2022-01-03 07:59] LABS: BASE EXCESS ABG 1 mmol/L (-3-3); HCO3 ABG 25 mmol/L (21-28); PCO2 ABG 37 mmHg (35-46); PO2 ABG 102 mmHg (75-108); SAT O2 ABG 97 % (92-99)
[2022-01-03 08:01] LABS: FIO2 ABG 35
--- NOTE | 2022-01-03 08:16 | PDOC ---
PULMONARY PROGRESS NOTES DATE: 01/03/22 TIME: 08:16 Subjective Patient currently sedated Off sedation her blood pressure goes skyhigh Vitals Vital Signs Date Time Temp Pulse Resp B/P (MAP) Pulse Ox O2 Delivery O2 Flow Rate FiO2 01/03/22 07:46 100 Ventilator 01/03/22 06:00 60 17 170/66 01/03/22 04:00 99.4 99.4 Comments Patient is unable to perform review of systems secondary to current clinical state General: Lethargic Lungs: Crackles, Other (decreased base ) Extremities: Other (trace BLE and BUE ) Skin: Warm, Dry Labs Laboratory Tests Test 01/01/22 10:05 01/01/22 11:49 01/01/22 17:08 01/01/22 23:40 White Blood Count 7.0 x10^3/uL (4.0-11.0) Red Blood Count 2.96 x10^6/uL (3.50-5.40) Hemoglobin 8.6 g/dL (12.0-15.5) Hematocrit 25.7 % (36.0-47.0) Mean Corpuscular Volume 87 fL (79-100) Mean Corpuscular Hemoglobin 29 pg (25-35) Mean Corpuscular Hemoglobin Concent 33 g/dL (31-37) Red Cell Distribution Width 14.6 % (11.5-14.5) Platelet Count 150 x10^3/uL (140-400) Prothrombin Time 12.8 SEC (11.7-14.0) Prothromb Time International Ratio 1.0 (0.8-1.1) Vancomycin Level Trough 27.4 mcg/mL (10.0-20.0) Vancomycin Last Dose Date 12/31/21 Vancomycin Last Dose Time 1100 Glucose (Fingerstick) 168 mg/dL (70-99) 165 mg/dL (70-99) 187 mg/dL (70-99) Test 01/02/22 05:40 01/02/22 06:01 01/02/22 07:55 01/02/22 12:12 Sodium Level 150 mmol/L (136-145) Potassium Level 3.1 mmol/L (3.5-5.1) Chloride Level 114 mmol/L (98-107) Carbon Dioxide Level 27 mmol/L (21-32) Anion Gap 9 (6-14) Blood Urea Nitrogen 34 mg/dL (7-20) Creatinine 2.3 mg/dL (0.6-1.0) Estimated GFR (Cockcroft-Gault) 22.2 Glucose Level 116 mg/dL (70-99) Calcium Level 7.7 mg/dL (8.5-10.1) Phosphorus Level 4.0 mg/dL (2.6-4.7) Albumin 1.3 g/dL (3.4-5.0) Glucose (Fingerstick) 114 mg/dL (70-99) 151 mg/dL (70-99) O2 Saturation 93 % (92-99) Arterial Blood pH 7.41 (7.35-7.45) Arterial Blood pCO2 at Patient Temp 38 mmHg (35-46) Arterial Blood pO2 at Patient Temp 71 mmHg (75-108) Arterial Blood HCO3 24 mmol/L (21-28) Arterial Blood Base Excess -1 mmol/L (-3-3) FiO2 35 Test 01/02/22 16:53 01/02/22 16:54 01/03/22 00:06 01/03/22 05:00 Glucose (Fingerstick) 150 mg/dL (70-99) 198 mg/dL (70-99) Sodium Level 145 mmol/L (136-145) 144 mmol/L (136-145) Potassium Level 3.4 mmol/L (3.5-5.1) 3.2 mmol/L (3.5-5.1) Chloride Level 110 mmol/L (98-107) 106 mmol/L (98-107) Carbon Dioxide Level 29 mmol/L (21-32) 26 mmol/L (21-32) Anion Gap 6 (6-14) 12 (6-14) Blood Urea Nitrogen 30 mg/dL (7-20) 31 mg/dL (7-20) Creatinine 2.2 mg/dL (0.6-1.0) 2.2 mg/dL (0.6-1.0) Estimated GFR (Cockcroft-Gault) 23.3 23.3 Glucose Level 157 mg/dL (70-99) 191 mg/dL (70-99) Calcium Level 7.5 mg/dL (8.5-10.1) 7.7 mg/dL (8.5-10.1) Phosphorus Level 4.1 mg/dL (2.6-4.7) Albumin 1.3 g/dL (3.4-5.0) Test 01/03/22 05:08 01/03/22 07:50 Glucose (Fingerstick) 187 mg/dL (70-99) O2 Saturation 97 % (92-99) Arterial Blood pH 7.45 (7.35-7.45) Arterial Blood pCO2 at Patient Temp 37 mmHg (35-46) Arterial Blood pO2 at Patient Temp 102 mmHg (75-108) Arterial Blood HCO3 25 mmol/L (21-28) Arterial Blood Base Excess 1 mmol/L (-3-3) FiO2 35 Laboratory Tests Test 01/02/22 12:12 01/02/22 16:53 01/02/22 16:54 01/03/22 00:06 Glucose (Fingerstick) 151 mg/dL (70-99) 150 mg/dL (70-99) 198 mg/dL (70-99) Sodium Level 145 mmol/L (136-145) Potassium Level 3.4 mmol/L (3.5-5.1) Chloride Level 110 mmol/L (98-107) Carbon Dioxide Level 29 mmol/L (21-32) Anion Gap 6 (6-14) Blood Urea Nitrogen 30 mg/dL (7-20) Creatinine 2.2 mg/dL (0.6-1.0) Estimated GFR (Cockcroft-Gault) 23.3 Glucose Level 157 mg/dL (70-99) Calcium Level 7.5 mg/dL (8.5-10.1) Test 01/03/22 05:00 01/03/22 05:08 01/03/22 07:50 Sodium Level 144 mmol/L (136-145) Potassium Level 3.2 mmol/L (3.5-5.1) Chloride Level 106 mmol/L (98-107) Carbon Dioxide Level 26 mmol/L (21-32) Anion Gap 12 (6-14) Blood Urea Nitrogen 31 mg/dL (7-20) Creatinine 2.2 mg/dL (0.6-1.0) Estimated GFR (Cockcroft-Gault) 23.3 Glucose Level 191 mg/dL (70-99) Calcium Level 7.7 mg/dL (8.5-10.1) Phosphorus Level 4.1 mg/dL (2.6-4.7) Albumin 1.3 g/dL (3.4-5.0) Glucose (Fingerstick) 187 mg/dL (70-99) O2 Saturation 97 % (92-99) Arterial Blood pH 7.45 (7.35-7.45) Arterial Blood pCO2 at Patient Temp 37 mmHg (35-46) Arterial Blood pO2 at Patient Temp 102 mmHg (75-108) Arterial Blood HCO3 25 mmol/L (21-28) Arterial Blood Base Excess 1 mmol/L (-3-3) FiO2 35 Medications Active Scripts Medications Dose Route/Sig Max Daily Dose Days Date Category Dose Instructions Montelukast Sodium 10 Mg Tablet 1 Tab PO DAILY 12/24/21 Reported Stool Softener (Docusate Sodium) 50 Mg Capsule 50 Mg PO BID 06/02/19 Reported Glover 5-325 Tablet (Acetaminophen/Hydrocodone Bitart) 1 Each Tablet 1 Tab PO Q4HRS 06/02/19 Reported LAST DOSE GIVEN: Lantus Solostar (Insulin Glargine,Hum.rec.anlog) 100 Unit/1 Ml Insuln.pen 21 Unit SQ QHS 06/02/19 Reported Culturelle (Lactobacillus Rhamnosus Gg) 1 Each Capsule 1 Each PO DAILY 06/01/19 Reported Alive Once Daily Women 50 Plus (Mv-Mn/Folic Acid/Vit K/Kdtm360) 1 Each Tablet 1 Each PO DAILY 06/01/19 Reported Glover 5-325 Tablet (Acetaminophen/Hydrocodone Bitart) 1 Each Tablet 1 Tab PO PRN Q6HRS PRN 06/01/19 Reported Tizanidine Hcl 4 Mg Tablet 2 Tab PO TID PRN 06/01/19 Reported Proair Hfa Inhaler (Albuterol Sulfate) 8.5 Gm Hfa.aer.ad 1 Puff INH PRN Q6HRS PRN 01/19/19 Reported Montelukast Sodium Tablet (Montelukast Sodium) 10 Mg Tablet 1 Tab PO DAILY 01/19/19 Reported Losartan-Hctz 100-25 Mg Tab (Losartan/Hydrochlorothiazide) 1 Each Tablet 1 Tab PO DAILY 01/19/19 Reported Protonix (Pantoprazole Sodium) 20 Mg Tablet.dr 1 Tab PO DAILY 01/19/19 Reported Vitamin D3 (Cholecalciferol (Vitamin D3)) 1,000 Unit Tablet 1 Tab PO DAILY 01/19/19 Reported Cetirizine Hcl 10 Mg Tablet 1 Tab PO DAILY 01/19/19 Reported Janumet 50-1,000 Mg Tablet (Sitagliptin Phos/Metformin Hcl) 1 Each Tablet 1 Tab PO BID 01/19/19 Reported Impression . Acute hypoxemic respiratory failure multifactorial metabolic encephalopathy Acute kidney injury, per nephrology Possible sepsis Hypomagnesemia hypokalemia Uncontrolled hypertension Severe metabolic acidosis CVA--positive MRI 12/25/2021, see MRI report COPD Thyroid disorder Status post PEG Plan . Updated 01/03 Unable to time treat sedation down May require trach Appreciated neurology input ABG noted DNR Monitor sodium, monitor creatinine CT abdomen no evidence of ischemia Continue empiric antibiotics Overall prognosis is poor Discussed with VAIBHAV DILLARD MD Jan 03, 2022 08:16
[2022-01-03] MEDS: POTASSIUM CHLORIDE 10MEQ 100 ML IV SCH ×4 (09:08→11:53)
[2022-01-03] MEDS: CHLORHEXIDINE 0.12% 15 ML MOUTHWASH. MM SCH ×2 (09:09→20:37)
[2022-01-03] MEDS: MONTELUKAST SODIUM 10 MG TABLET. PO SCH (09:09)
[2022-01-03] MEDS: CHOLECALCIFEROL (VITAMIN D3) 1,000 UNIT TABLET PO SCH (09:09)
[2022-01-03] MEDS: CETIRIZINE HCL 10 MG TABLET. PO SCH (09:09)
[2022-01-03] MEDS: ASPIRIN CHEWABLE 81 MG TABLET. PO SCH (09:09)
[2022-01-03] MEDS: FAMOTIDINE 20 MG/2 ML VIAL IVP SCH (09:09)
[2022-01-03] MEDS: NICOTINE 21MG PATCH. TD SCH (09:15)
--- NOTE | 2022-01-03 09:19 | PDOC ---
G I PROGRESS NOTE Subjective Intubated on ventilator. Objective Per staff, not waking up off sedation. Physical Exam Lungs clear anteriorly. RRR Abdomen soft, not distended. PEG site OK. TF at 30cc/hr. Review of Relevant I have reviewed the following items chino (where applicable) has been applied. Labs Laboratory Tests Test 01/01/22 10:05 01/01/22 11:49 01/01/22 17:08 01/01/22 23:40 White Blood Count 7.0 x10^3/uL (4.0-11.0) Red Blood Count 2.96 x10^6/uL (3.50-5.40) Hemoglobin 8.6 g/dL (12.0-15.5) Hematocrit 25.7 % (36.0-47.0) Mean Corpuscular Volume 87 fL (79-100) Mean Corpuscular Hemoglobin 29 pg (25-35) Mean Corpuscular Hemoglobin Concent 33 g/dL (31-37) Red Cell Distribution Width 14.6 % (11.5-14.5) Platelet Count 150 x10^3/uL (140-400) Prothrombin Time 12.8 SEC (11.7-14.0) Prothromb Time International Ratio 1.0 (0.8-1.1) Vancomycin Level Trough 27.4 mcg/mL (10.0-20.0) Vancomycin Last Dose Date 12/31/21 Vancomycin Last Dose Time 1100 Glucose (Fingerstick) 168 mg/dL (70-99) 165 mg/dL (70-99) 187 mg/dL (70-99) Test 01/02/22 05:40 01/02/22 06:01 01/02/22 07:55 01/02/22 12:12 Sodium Level 150 mmol/L (136-145) Potassium Level 3.1 mmol/L (3.5-5.1) Chloride Level 114 mmol/L (98-107) Carbon Dioxide Level 27 mmol/L (21-32) Anion Gap 9 (6-14) Blood Urea Nitrogen 34 mg/dL (7-20) Creatinine 2.3 mg/dL (0.6-1.0) Estimated GFR (Cockcroft-Gault) 22.2 Glucose Level 116 mg/dL (70-99) Calcium Level 7.7 mg/dL (8.5-10.1) Phosphorus Level 4.0 mg/dL (2.6-4.7) Albumin 1.3 g/dL (3.4-5.0) Glucose (Fingerstick) 114 mg/dL (70-99) 151 mg/dL (70-99) O2 Saturation 93 % (92-99) Arterial Blood pH 7.41 (7.35-7.45) Arterial Blood pCO2 at Patient Temp 38 mmHg (35-46) Arterial Blood pO2 at Patient Temp 71 mmHg (75-108) Arterial Blood HCO3 24 mmol/L (21-28) Arterial Blood Base Excess -1 mmol/L (-3-3) FiO2 35 Test 01/02/22 16:53 01/02/22 16:54 01/03/22 00:06 01/03/22 05:00 Glucose (Fingerstick) 150 mg/dL (70-99) 198 mg/dL (70-99) Sodium Level 145 mmol/L (136-145) 144 mmol/L (136-145) Potassium Level 3.4 mmol/L (3.5-5.1) 3.2 mmol/L (3.5-5.1) Chloride Level 110 mmol/L (98-107) 106 mmol/L (98-107) Carbon Dioxide Level 29 mmol/L (21-32) 26 mmol/L (21-32) Anion Gap 6 (6-14) 12 (6-14) Blood Urea Nitrogen 30 mg/dL (7-20) 31 mg/dL (7-20) Creatinine 2.2 mg/dL (0.6-1.0) 2.2 mg/dL (0.6-1.0) Estimated GFR (Cockcroft-Gault) 23.3 23.3 Glucose Level 157 mg/dL (70-99) 191 mg/dL (70-99) Calcium Level 7.5 mg/dL (8.5-10.1) 7.7 mg/dL (8.5-10.1) Phosphorus Level 4.1 mg/dL (2.6-4.7) Albumin 1.3 g/dL (3.4-5.0) Test 01/03/22 05:08 01/03/22 07:50 Glucose (Fingerstick) 187 mg/dL (70-99) O2 Saturation 97 % (92-99) Arterial Blood pH 7.45 (7.35-7.45) Arterial Blood pCO2 at Patient Temp 37 mmHg (35-46) Arterial Blood pO2 at Patient Temp 102 mmHg (75-108) Arterial Blood HCO3 25 mmol/L (21-28) Arterial Blood Base Excess 1 mmol/L (-3-3) FiO2 35 Laboratory Tests Test 01/02/22 12:12 01/02/22 16:53 01/02/22 16:54 01/03/22 00:06 Glucose (Fingerstick) 151 mg/dL (70-99) 150 mg/dL (70-99) 198 mg/dL (70-99) Sodium Level 145 mmol/L (136-145) Potassium Level 3.4 mmol/L (3.5-5.1) Chloride Level 110 mmol/L (98-107) Carbon Dioxide Level 29 mmol/L (21-32) Anion Gap 6 (6-14) Blood Urea Nitrogen 30 mg/dL (7-20) Creatinine 2.2 mg/dL (0.6-1.0) Estimated GFR (Cockcroft-Gault) 23.3 Glucose Level 157 mg/dL (70-99) Calcium Level 7.5 mg/dL (8.5-10.1) Test 01/03/22 05:00 01/03/22 05:08 01/03/22 07:50 Sodium Level 144 mmol/L (136-145) Potassium Level 3.2 mmol/L (3.5-5.1) Chloride Level 106 mmol/L (98-107) Carbon Dioxide Level 26 mmol/L (21-32) Anion Gap 12 (6-14) Blood Urea Nitrogen 31 mg/dL (7-20) Creatinine 2.2 mg/dL (0.6-1.0) Estimated GFR (Cockcroft-Gault) 23.3 Glucose Level 191 mg/dL (70-99) Calcium Level 7.7 mg/dL (8.5-10.1) Phosphorus Level 4.1 mg/dL (2.6-4.7) Albumin 1.3 g/dL (3.4-5.0) Glucose (Fingerstick) 187 mg/dL (70-99) O2 Saturation 97 % (92-99) Arterial Blood pH 7.45 (7.35-7.45) Arterial Blood pCO2 at Patient Temp 37 mmHg (35-46) Arterial Blood pO2 at Patient Temp 102 mmHg (75-108) Arterial Blood HCO3 25 mmol/L (21-28) Arterial Blood Base Excess 1 mmol/L (-3-3) FiO2 35 Microbiology 12/30/21 Blood Culture - Preliminary, Resulted NO GROWTH AFTER 3 DAYS Vitals/I & O Vital Sign - Last 24 Hours 01/02/22 01/02/22 01/02/22 01/02/22 10:00 10:06 11:00 11:37 Pulse 59 62 Resp 19 19 B/P (MAP) 178/71 157/66 Pulse Ox 100 100 100 98 O2 Delivery Ventilator Ventilator Ventilator Ventilator 01/02/22 01/02/22 01/02/22 01/02/22 12:00 12:00 12:15 13:00 Temp 98.6 98.6 Pulse 55 57 68 Resp 16 16 B/P (MAP) 165/66 155/64 159/68 Pulse Ox 100 100 O2 Delivery Ventilator Ventilator 01/02/22 01/02/22 01/02/22 01/02/22 13:50 14:00 15:00 16:00 Temp 98.3 98.3 Pulse 98 63 54 58 Resp 28 22 18 20 B/P (MAP) 213/102 154/64 160/66 164/66 Pulse Ox 100 100 100 100 O2 Delivery Ventilator Ventilator Ventilator Ventilator 01/02/22 01/02/22 01/02/22 01/02/22 16:00 16:00 17:00 17:24 Pulse 58 Resp 20 B/P (MAP) 164/62 Pulse Ox 100 100 100 O2 Delivery Ventilator Ventilator Ventilator 01/02/22 01/02/22 01/02/22 01/02/22 17:47 18:00 19:00 20:00 Pulse 58 56 57 Resp 20 20 B/P (MAP) 164/66 158/64 137/65 Pulse Ox 100 100 O2 Delivery Ventilator Ventilator 01/02/22 01/02/22 01/02/22 01/02/22 20:00 20:00 20:22 21:00 Temp 98.8 98.8 Pulse 58 64 Resp 16 18 B/P (MAP) 142/66 148/60 Pulse Ox 100 100 100 O2 Delivery Ventilator Mechanical Ventilator Ventilator Ventilator 01/02/22 01/02/22 01/02/22 01/02/22 22:00 23:00 23:08 23:20 Pulse 62 63 Resp 16 16 16 B/P (MAP) 174/64 175/66 Pulse Ox 100 99 100 100 O2 Delivery Ventilator Ventilator Ventilator Ventilator 01/03/22 01/03/22 01/03/22 01/03/22 00:00 00:00 00:07 01:00 Temp 98.8 98.8 Pulse 65 68 63 Resp 16 19 B/P (MAP) 168/68 157/60 167/67 Pulse Ox 100 100 O2 Delivery Ventilator Ventilator 01/03/22 01/03/22 01/03/22 01/03/22 02:00 02:15 03:00 04:00 Pulse 58 66 Resp 18 16 B/P (MAP) 148/62 156/64 Pulse Ox 100 100 100 O2 Delivery Ventilator Ventilator Ventilator 01/03/22 01/03/22 01/03/22 01/03/22 04:00 05:00 05:00 05:36 Temp 99.4 99.4 Pulse 68 63 62 Resp 16 16 B/P (MAP) 172/68 165/63 161/63 Pulse Ox 100 100 100 O2 Delivery Ventilator Ventilator Ventilator 01/03/22 01/03/22 06:00 07:46 Pulse 60 Resp 17 B/P (MAP) 170/66 Pulse Ox 100 100 O2 Delivery Ventilator Ventilator Intake and Output 01/02/22 01/02/22 01/03/22 15:00 23:00 07:00 Intake Total 210 ml 1302.95 ml 1376 ml Output Total 1025 ml 600 ml 390 ml Balance -815 ml 702.95 ml 986 ml Assessment OP dysphagia, post-PEG. Bilateral thalamic infarcts; suspect will not wake up. Plan of Care Note Continue tube feeding, etc. Justicifation of Admission Dx: Justifications for Admission: Justification of Admission Dx: Yes Stroke - Ischemic: Stroke-Ischemic LILLY SHAHID MD Jan 03, 2022 09:19
--- NOTE | 2022-01-03 10:01 | PDOC ---
DATE OF SERVICE DATE: 01/03/22 TIME: 09:57 SUBJECTIVE ROS Remains Intubated OBJECTIVE Vital Signs Vital Signs Date Time Temp Pulse Resp B/P (MAP) Pulse Ox O2 Delivery O2 Flow Rate FiO2 01/03/22 09:51 99 Ventilator 01/03/22 06:00 60 17 170/66 01/03/22 04:00 99.4 99.4 I & 0 Intake and Output 01/03/22 07:00 Intake Total 2888.95 ml Output Total 2014 ml Balance 873.95 ml IV Total 1409.95 ml Tube Feeding 1010 ml Other 469 ml Output Urine Total 2015 ml Gastric Drainage Total 0 ml PHYSICAL EXAM Physical Exam General Appearance: Intubated HEEN ETT + Skin: warm, No rash Respiratory: bilateral CTA ant Heart: S1S2 Abdomen: soft, bowel sounds present Genitourinary: [place] Extremities: No LE edema , No cyanosis Neurology: sedated DIAGNOSIS/ASSESSMENT Assessment & Plan MICHELET - - Creat trended up since admission , 1.7-->2.4; stable today , Improved UOP , s/p IV Lasix 01/02 , no emergent indication for dialysis , monitor daily and re-evaluate Supportive care, avoid Nephrotoxins . Vanc levels were high HyperNatremia - Was on IV bicarb, dced . switched to IV Hypotonic fluid . Has PEG now for TF with water flushes HypoKalemia - mild, replace HypOmagnesemia - normal Mg ? CKD stage 3 Creat 2,1 in 2019 x 1 , No interval labs CVA HTN- [employer] elevated . Primary managing DM II- primary managing Discussed with RN COMMENT/RELEVANT DATA Meds Current Medications Medications (Trade) Dose Ordered Sig/Fabio Start Time Stop Time Status Last Admin Dose Admin Acetaminophen (Tylenol Supp) 650 mg PRN Q6HRS PRN 12/24/21 20:15 Acetaminophen (Tylenol) 650 mg PRN Q6HRS PRN 12/24/21 20:15 12/24/21 20:17 DC Albuterol Sulfate (Ventolin Neb Soln) 2.5 mg PRN Q4HRS PRN 12/30/21 02:00 12/30/21 01:55 2.5 MG Albuterol/ Ipratropium (Duoneb) 3 ml RTQID 12/30/21 12:00 01/03/22 07:46 3 ML Amiodarone HCl (Cordarone) 300 mg STK-MED ONCE 12/30/21 20:00 01/01/22 13:17 DC Aspirin (Aspirin Chewable) 162 mg [id number] 01/03/22 08:00 01/03/22 09:09 162 MG Aspirin (Aspirin Rectal Supp) 300 mg DAILY 12/30/21 11:00 01/02/22 15:08 DC 01/02/22 09:42 300 MG Atorvastatin Calcium (Lipitor) 80 mg QHS 12/24/21 21:00 01/02/22 21:07 80 MG Atropine Sulfate (ATROPINE 0.5mg SYRINGE) 0.5 mg PRN Q5MIN PRN 12/30/21 21:30 Bisacodyl (Dulcolax Supp) 10 mg PRN DAILY PRN 12/24/21 20:15 UNV Cefazolin Sodium (Ancef) 1 gm 1X ONCE 01/01/22 13:30 01/01/22 08:01 DC Cetirizine HCl (ZyrTEC) 10 mg DAILY 12/25/21 10:00 01/03/22 09:09 10 MG Chlorhexidine Gluconate (Peridex) 15 ml BID 12/31/21 09:00 01/03/22 09:09 15 ML Clonidine HCl (Catapres Tts-2) 1 patch WEEKLY 12/26/21 15:00 01/02/22 09:40 1 PATCH Dexmedetomidine HCl 400 mcg/ Sodium Chloride 100 ml @ 3.195 mls/ hr CONT PRN 12/30/21 21:30 Dextrose 1,000 ml @ 75 mls/hr [id number] 01/01/22 10:45 01/02/22 16:48 DC 01/02/22 05:15 75 MLS/HR Dextrose (Dextrose 50%-Water Syringe) 12.5 gm PRN Q15MIN PRN 12/24/21 20:15 Dextrose (Iv Dextrose 5%) 250 ml PRN Q15MIN PRN 12/24/21 20:15 Diltiazem HCl 125 mg/Sodium Chloride 125 ml @ 5 mls/hr CONT PRN 12/30/21 18:15 12/30/21 19:20 DC Enalaprilat (Vasotec Inj) 1.25 mg Q6HRS 12/28/21 12:00 12/31/21 14:47 DC 12/30/21 12:54 1.25 MG Epinephrine HCl (EPINEPHrine SYRINGE) 3 mg STK-MED ONCE 12/30/21 20:00 01/01/22 13:17 DC Etomidate (Amidate) 20 mg STK-MED ONCE 12/30/21 20:00 01/01/22 09:12 DC Famotidine (Pepcid Vial) 20 mg DAILY 12/27/21 09:00 01/03/22 09:09 20 MG Fentanyl Citrate 30 ml @ 0 mls/hr CONT PRN 12/30/21 21:30 01/02/22 23:08 1.25 MLS/HR Furosemide (Lasix) 80 mg 1X ONCE 01/02/22 09:30 01/02/22 09:31 DC 01/02/22 09:41 80 MG Glycerin/ Hypromellose/ Polyethylene (Artificial Tears) 1 drop PRN Q1HR PRN 12/30/21 21:30 Heparin Sodium (Porcine) (Heparin Sodium) 5,000 unit Q8HRS 12/26/21 14:00 01/03/22 06:22 5,000 UNIT Hydralazine HCl (Apresoline Inj) 10 mg PRN Q4HRS PRN 12/24/21 20:15 12/30/21 18:15 10 MG Hydrochlorothiazide (Hydrodiuril) 25 mg DAILY 12/25/21 10:00 12/31/21 14:47 DC Insulin Human Lispro (HumaLOG) 0-9 UNITS Q6HRS 12/25/21 00:00 01/03/22 05:37 4 UNITS Labetalol HCl (Normodyne Iv Push) 20 mg PRN Q2HR PRN 12/26/21 13:30 12/30/21 17:45 20 MG Lactobacillus Rhamnosus (Culturelle) 1 cap BID 12/30/21 21:00 01/02/22 07:33 DC Linezolid/Dextrose 300 ml @ 300 mls/hr Q12HR 01/02/22 21:00 01/03/22 09:04 300 MLS/HR Lorazepam (Ativan Inj) 2 mg PRN Q4HRS PRN 12/25/21 10:00 12/29/21 20:16 2 MG Losartan Potassium (Cozaar) 100 mg DAILY 12/25/21 10:00 12/31/21 14:46 DC Magnesium Sulfate 50 ml @ 25 mls/hr 1X ONCE 12/31/21 08:30 12/31/21 10:29 DC 12/31/21 09:06 25 MLS/HR Magnesium Sulfate/ Dextrose (Magnesium Sulfate PREMIX 1GM) 1 gm STK-MED ONCE 12/30/21 20:00 01/01/22 13:17 DC Midazolam HCl (Versed) 5 mg PRN 1X PRN 12/30/21 21:30 12/31/21 21:29 DC Montelukast Sodium (Singulair) 10 mg DAILY 12/25/21 10:00 01/03/22 09:09 10 MG Nicardipine HCl 50 mg/Sodium Chloride 250 ml @ 12.5 mls/hr CONT PRN 12/30/21 19:30 Nicotine (Nicoderm Cq 21mg) 1 patch DAILY 12/26/21 15:00 01/03/22 09:15 1 PATCH Nitroglycerin (Nitro-Bid Oint) 1 inch Q6HRS 12/26/21 18:00 01/03/22 05:36 1 INCH Olanzapine (ZyPREXA ZYDIS) 5 mg PRN BID PRN 12/24/21 20:15 12/24/21 22:49 5 MG Ondansetron HCl (Zofran) 4 mg PRN Q4HRS PRN 12/24/21 20:15 Pantoprazole Sodium (Protonix) 40 mg DAILYAC 12/25/21 11:30 12/29/21 12:07 DC Piperacillin Sod/ Tazobactam Sod (Zosyn Per Pharmacy) 1 each PRN DAILY PRN 12/30/21 04:30 Piperacillin Sod/ Tazobactam Sod 3.375 gm/Sodium Chloride 50 ml @ 100 mls/hr Q6HRS 12/30/21 06:00 01/03/22 05:35 100 MLS/HR Potassium Bicarbonate (Potassium Effervescent Tablet) 40 meq 1X ONCE 01/02/22 17:45 01/02/22 17:47 DC 01/02/22 17:54 20 MEQ Potassium Chloride/Water 100 ml @ 100 mls/hr Q1H 01/03/22 09:00 01/03/22 12:59 01/03/22 09:08 100 MLS/HR Propofol 100 ml @ 1.917 mls/ hr CONT PRN 12/30/21 21:30 01/02/22 17:47 3.834 MLS/HR Sodium Bicarbonate 150 meq/Dextrose 1,150 ml @ 75 mls/hr [id number] 12/30/21 11:00 12/31/21 08:24 DC 12/31/21 03:04 75 MLS/HR Sodium Bicarbonate (Sodium Bicarb Adult 8.4% Syr) 50 meq STK-MED ONCE 12/30/21 20:00 01/01/22 13:17 DC Sodium Chloride 1,000 ml @ 75 mls/hr [id number] 12/31/21 08:30 01/01/22 10:39 DC 01/01/22 04:01 75 MLS/HR Succinylcholine Chloride (Anectine) 200 mg STK-MED ONCE 12/30/21 20:00 01/01/22 09:12 DC Vancomycin HCl (Vanco Per Pharmacy) 1 each PRN DAILY PRN 12/30/21 10:30 01/02/22 09:58 DC 01/01/22 12:42 1 EACH Vancomycin HCl (Vancomycin Trough Level) 1 each 1X ONCE 01/03/22 10:30 01/03/22 10:31 Cancel Vancomycin HCl 1.5 gm/Sodium Chloride 500 ml @ 250 mls/hr 1X ONCE 12/30/21 11:00 12/30/21 12:59 DC 12/30/21 10:51 250 MLS/HR Vancomycin HCl 1 gm/Sodium Chloride 250 ml @ 250 mls/hr Q36H 01/01/22 23:00 01/02/22 09:58 DC 01/01/22 22:52 250 MLS/HR Vecuronium [place] (Norcuron Bolus) 6 mg PRN 1X PRN 12/30/21 21:30 12/31/21 21:29 DC Vitamin D (Vitamin D3) 1,000 unit DAILY 12/25/21 10:00 01/03/22 09:09 1,000 UNIT Lab Laboratory Tests Test 01/02/22 12:12 01/02/22 16:53 01/02/22 16:54 01/03/22 00:06 Glucose (Fingerstick) 151 mg/dL (70-99) 150 mg/dL (70-99) 198 mg/dL (70-99) Sodium Level 145 mmol/L (136-145) Potassium Level 3.4 mmol/L (3.5-5.1) Chloride Level 110 mmol/L (98-107) Carbon Dioxide Level 29 mmol/L (21-32) Anion Gap 6 (6-14) Blood Urea Nitrogen 30 mg/dL (7-20) Creatinine 2.2 mg/dL (0.6-1.0) Estimated GFR (Cockcroft-Gault) 23.3 Glucose Level 157 mg/dL (70-99) Calcium Level 7.5 mg/dL (8.5-10.1) Test 01/03/22 05:00 01/03/22 05:08 01/03/22 07:50 Sodium Level 144 mmol/L (136-145) Potassium Level 3.2 mmol/L (3.5-5.1) Chloride Level 106 mmol/L (98-107) Carbon Dioxide Level 26 mmol/L (21-32) Anion Gap 12 (6-14) Blood Urea Nitrogen 31 mg/dL (7-20) Creatinine 2.2 mg/dL (0.6-1.0) Estimated GFR (Cockcroft-Gault) 23.3 Glucose Level 191 mg/dL (70-99) Calcium Level 7.7 mg/dL (8.5-10.1) Phosphorus Level 4.1 mg/dL (2.6-4.7) Albumin 1.3 g/dL (3.4-5.0) Glucose (Fingerstick) 187 mg/dL (70-99) O2 Saturation 97 % (92-99) Arterial Blood pH 7.45 (7.35-7.45) Arterial Blood pCO2 at Patient Temp 37 mmHg (35-46) Arterial Blood pO2 at Patient Temp 102 mmHg (75-108) Arterial Blood HCO3 25 mmol/L (21-28) Arterial Blood Base Excess 1 mmol/L (-3-3) FiO2 35 Results All relevant outside records, renal labs, imaging studies, telemetry/EKG's were reviewed. Justicifation of Admission Dx: Justifications for Admission: Justification of Admission Dx: Yes Stroke - Ischemic: Stroke-Ischemic VIKA WEST MD Jan 03, 2022 10:01
[2022-01-03] MEDS: PROPOFOL 100 ML IV PRN ×2 (10:13→20:38)
--- NOTE | 2022-01-03 10:50 | PDOC ---
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 Acute respiratory failure requiring BiPAP support Concern for early sepsis Dehydration Metabolic acidosis Acute electrolyte derangement, hypernatremia and hyperchloremia-possible dehydration History hypertension History of diabetes diabetes History of Present Illness History of Present Illness 01/03/2022 Patient seen and examined in the ICU She remains on the vent AC/16/400/30 percent with 5 of PEEP Discussed with RN, the patient's urine output is a low Currently sedated with propofol Has IV Zosyn and IV Zyvox NG running at 30 cc an hour Has Berumen to bedside drainage ABIs are in place Art line appears clean dry intact and functioning well Chart reviewed She remains critically ill 01/02/2022 Patient seen and examined in the ICU She got her PEG yesterday but then apparently aspirated and had to be intubated Vent settings as follows AC/16/400/30 5% with 5 of PEEP Sedated with propofol fentanyl Has IV Zosyn hanging D5 water also hanging Creatinine bumped up a little bit (I called the pharmacy working to stop the Vanco and start Zyvox) Chart reviewed Discussed with RN She is critically ill 01/01/2022 Patient seen and examined in the ICU She remains on the vent AC/16/400/30 5% with 5 of PEEP Art line in place Sedated with propofol and fentanyl Has half-normal saline hanging with Zosyn Berumen to bedside drainage Chart reviewed Discussed with RN 12/31 Patient evaluated examined at bedside. She required intubation overnight and is currently intubated and sedated. Patient was intubated after family decided on continuing full treatment measures. Blood pressure improved. When seen patient unresponsive no withdrawal to pain. Pupils do still have reflex. Continue current. Nephrology pulmonology following. 45 minutes critical care time 12/30/2021 Rapid response called last night for desaturations down to the 70s. Labs were obtained showing hypernatremia. Patient still unresponsive and placed on BiPAP. ABG showed 7.1 7/40/74/14. Concern for aspiration, worsening of stroke, or dehydration. Nephrology and pulmonology consulted. Patient transferred to the ICU. Empiric IV antibiotics are started and blood cultures are obtained. D5 bicarb drip started. Patient's chart, labs, images were reviewed and discussed with RN 12/29/21 No acute events overnight. Patient seen examined bedside. Sleeping in bed and unable to be arousable with sternal rub or to voice. Patient unable to follow through with speech evaluation. Will need to consider TPN for nutrition. Medicaid application pending. Patient's chart, labs, images were reviewed and discussed with RN 12/28 Patient evaluated examined at bedside. She was sleeping in bed unable to get her to open her eyes even with sternal rub. Some withdrawal to pain in the right lower extremity none in right upper extremity. Unable to follow commands to see if she could hold her arm against gravity. Still having some trouble controlling blood pressure is still on Cardene drip for now. Will schedule Vasotec and try to start weaning off the Cardene drip. 12/27 Evaluated and examined at bedside. She was resting in bed not easily awoken and still cannot provide me really with any history given her aphasic state. She did have some withdrawal to pain in the right lower extremity still no movement and right upper. PT OT. Neuro following. Plan discussed bedside RN. 12/26 Evaluated and examined at bedside. Is a bit lethargic today difficulty staying awake this morning. MRI showing acute infarcts. Neurology continues to follow. Patient remains aphasic. Therapy modalities. Blood pressure control with IV until able to take oral Okay to transfer out of ICU to CVC if bed is needed Vitals/I&O Vitals/I&O: Vital Signs Date Time Temp Pulse Resp B/P (MAP) Pulse Ox O2 Delivery O2 Flow Rate FiO2 01/03/22 09:51 99 Ventilator 01/03/22 06:00 60 17 170/66 01/03/22 04:00 99.4 99.4 I & O 01/02/22 01/02/22 01/03/22 15:00 23:00 07:00 Intake Total 210 ml 1302.95 ml 1376 ml Output Total 1025 ml 600 ml 390 ml Balance -815 ml 702.95 ml 986 ml Physical Exam General: Other (Sedated on the vent) Heart: Regular rate Lungs: Crackles, Other (decreased base ) Abdomen: Other (New PEG tube in place) Extremities: No clubbing Skin: No breakdown Labs Labs: Laboratory Tests Test 01/02/22 12:12 01/02/22 16:53 01/02/22 16:54 01/03/22 00:06 Glucose (Fingerstick) 151 mg/dL (70-99) 150 mg/dL (70-99) 198 mg/dL (70-99) Sodium Level 145 mmol/L (136-145) Potassium Level 3.4 mmol/L (3.5-5.1) Chloride Level 110 mmol/L (98-107) Carbon Dioxide Level 29 mmol/L (21-32) Anion Gap 6 (6-14) Blood Urea Nitrogen 30 mg/dL (7-20) Creatinine 2.2 mg/dL (0.6-1.0) Estimated GFR (Cockcroft-Gault) 23.3 Glucose Level 157 mg/dL (70-99) Calcium Level 7.5 mg/dL (8.5-10.1) Test 01/03/22 05:00 01/03/22 05:08 01/03/22 07:50 Sodium Level 144 mmol/L (136-145) Potassium Level 3.2 mmol/L (3.5-5.1) Chloride Level 106 mmol/L (98-107) Carbon Dioxide Level 26 mmol/L (21-32) Anion Gap 12 (6-14) Blood Urea Nitrogen 31 mg/dL (7-20) Creatinine 2.2 mg/dL (0.6-1.0) Estimated GFR (Cockcroft-Gault) 23.3 Glucose Level 191 mg/dL (70-99) Calcium Level 7.7 mg/dL (8.5-10.1) Phosphorus Level 4.1 mg/dL (2.6-4.7) Albumin 1.3 g/dL (3.4-5.0) Glucose (Fingerstick) 187 mg/dL (70-99) O2 Saturation 97 % (92-99) Arterial Blood pH 7.45 (7.35-7.45) Arterial Blood pCO2 at Patient Temp 37 mmHg (35-46) Arterial Blood pO2 at Patient Temp 102 mmHg (75-108) Arterial Blood HCO3 25 mmol/L (21-28) Arterial Blood Base Excess 1 mmol/L (-3-3) FiO2 35 Assessment and Plan Assessmemt and Plan Stroke Respiratory failure New PEG Expressive aphasia unilateral weakness secondary to 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 Sepsis Dehydration Hyponatremia Hypokalemia Hypomagnesemia Metabolic acidosis Acute electrolyte derangement, hypernatremia and hyperchloremia-possible dehydration History hypertension History of diabetes diabetes Plan ICU monitoring Vent weaning Continue sedation with propofol fentanyl Monitor art line Maintain Berumen [place] to start PEG feeds Zyvox and Zosyn Follow cultures Appreciate subspecialist input (nephrology gastroenterology neurology and pulmonary medicine) Trend labs Statins Aspirin DVT prophylaxis with Tacos Full code Sliding-scale insulin Prognosis extremely guarded CC time 33 minutes Comment Review of Relevant I have reviewed the following items chino (where applicable) has been applied. Medications: Current Medications Medications (Trade) Dose Ordered Sig/Fabio Route PRN Reason Start Time Stop Time Status Last Admin Dose Admin Linezolid/Dextrose 300 ml @ 300 mls/hr Q12HR IV 01/02/22 21:00 01/03/22 09:04 Aspirin (Aspirin Chewable) 162 mg [id number] PO 01/03/22 08:00 01/03/22 09:09 Potassium Bicarbonate (Potassium Effervescent Tablet) 40 meq 1X ONCE PEG 01/02/22 17:45 01/02/22 17:47 DC 01/02/22 17:54 Potassium Chloride/Water 100 ml @ 100 mls/hr Q1H IV 01/03/22 09:00 01/03/22 12:59 01/03/22 10:12 Justifications for Admission TIA Indications Persistent neurologic signs?: Yes Justification for admission: There is persistence of patient's focal neurologic signs or symptoms or there is concern for recurrence of patient's neurological signs and symptoms. Severe hypertension?: Yes Justification for admission: There is concern for patient's severe hypertension of (>180/110mmHg--please indicate patient's BP here) that has not been controlled by ED treatment. Patient needs inpatient level of care for further evaluation and management. Other Justification JAGDISH ONEIL III DO Jan 03, 2022 10:50
[2022-01-03] MEDS: hydrALAZINE 20 MG/ML VIAL. IVP PRN (11:09)
[2022-01-03] MEDS: LABETALOL 20 MG/4 ML DISP.SYRIN. IVP PRN (11:52)
[2022-01-03 13:44] LABS: CALCIUM 7.3 mg/dL (8.5-10.1); CREATININE 2.1 mg/dL (0.6-1.0); GFR 24.6; POTASSIUM 3.7 mmol/L (3.5-5.1)
--- NOTE | 2022-01-03 14:45 | NUR ---
SS following up with discharge planning. SS reviewed pt chart and discussed with pt RN. Pt is currently on the vent at 30%. Pt on IV Zosyn and IV Zyvox. Pt on Propofol and Fentanyl. Peg in place. Self pay. Med Assist following. SS will continue to follow for discharge planning.
[2022-01-03] MEDS: ATORVASTATIN CALCIUM 40 MG TABLET. PO SCH (20:37)
[2022-01-04] VITALS (35 sets, daily range): BP systolic 118–242; BP diastolic 48–84
[2022-01-04] MEDS: INSULIN LISPRO 300 UNITS/3 ML VIAL. SQ SCH ×5 (00:06→23:45)
[2022-01-04] MEDS: hydrALAZINE 20 MG/ML VIAL. IVP PRN (06:06)
[2022-01-04] MEDS: PROPOFOL 100 ML IV PRN ×3 (06:06→22:09)
[2022-01-04] MEDS: NITROGLYCERIN OINT 1 GM PACKET. TP SCH ×5 (06:07→23:37)
[2022-01-04] MEDS: PIPERACILLIN/TAZOBACTAM 3.375 GM in IV NORMAL SALINE 50ML 50 ML IV SCH ×4 (06:07→23:36)
[2022-01-04] MEDS: HEPARIN for SUB-Q USE 5,000 UNIT/ML VIAL. SQ SCH ×3 (06:11→22:14)
[2022-01-04 06:21] LABS: ALBUMIN 1.2 g/dL (3.4-5.0); CALCIUM 7.6 mg/dL (8.5-10.1); CREATININE 2.1 mg/dL (0.6-1.0); GFR 24.6; PHOSPHORUS 3.9 mg/dL (2.6-4.7); POTASSIUM 3.7 mmol/L (3.5-5.1)
[2022-01-04] MEDS: LABETALOL 20 MG/4 ML DISP.SYRIN. IVP PRN (07:28)
[2022-01-04 08:25] LABS: BASE EXCESS ABG 2 mmol/L (-3-3); HCO3 ABG 26 mmol/L (21-28); PCO2 ABG 40 mmHg (35-46); PO2 ABG 84 mmHg (75-108); SAT O2 ABG 96 % (92-99)
[2022-01-04 08:33] LABS: FIO2 ABG 30
[2022-01-04] MEDS: IPRATRPIUM/ALBUTEROL 0.5/2.5MG 3 ML NEBU. NEB SCH ×4 (08:34→20:00)
--- NOTE | 2022-01-04 08:43 | PDOC ---
PULMONARY PROGRESS NOTES DATE: 01/04/22 TIME: 08:43 Subjective Sedated, assist-control ventilation, IV Cardene Vitals Vital Signs Date Time Temp Pulse Resp B/P (MAP) Pulse Ox O2 Delivery O2 Flow Rate FiO2 01/04/22 08:27 100 Ventilator 01/04/22 07:28 65 223/76 01/04/22 07:00 16 01/04/22 04:00 99.4 99.4 Comments Patient is unable to perform review of systems secondary to current clinical state Lungs: Crackles Cardiovascular: S1, S2 Abdomen: Soft Extremities: Other Skin: Warm, Dry Labs Laboratory Tests Test 01/02/22 12:12 01/02/22 16:53 01/02/22 16:54 01/03/22 00:06 Glucose (Fingerstick) 151 mg/dL (70-99) 150 mg/dL (70-99) 198 mg/dL (70-99) Sodium Level 145 mmol/L (136-145) Potassium Level 3.4 mmol/L (3.5-5.1) Chloride Level 110 mmol/L (98-107) Carbon Dioxide Level 29 mmol/L (21-32) Anion Gap 6 (6-14) Blood Urea Nitrogen 30 mg/dL (7-20) Creatinine 2.2 mg/dL (0.6-1.0) Estimated GFR (Cockcroft-Gault) 23.3 Glucose Level 157 mg/dL (70-99) Calcium Level 7.5 mg/dL (8.5-10.1) Test 01/03/22 05:00 01/03/22 05:08 01/03/22 07:50 01/03/22 11:49 Sodium Level 144 mmol/L (136-145) Potassium Level 3.2 mmol/L (3.5-5.1) Chloride Level 106 mmol/L (98-107) Carbon Dioxide Level 26 mmol/L (21-32) Anion Gap 12 (6-14) Blood Urea Nitrogen 31 mg/dL (7-20) Creatinine 2.2 mg/dL (0.6-1.0) Estimated GFR (Cockcroft-Gault) 23.3 Glucose Level 191 mg/dL (70-99) Calcium Level 7.7 mg/dL (8.5-10.1) Phosphorus Level 4.1 mg/dL (2.6-4.7) Albumin 1.3 g/dL (3.4-5.0) Glucose (Fingerstick) 187 mg/dL (70-99) 190 mg/dL (70-99) O2 Saturation 97 % (92-99) Arterial Blood pH 7.45 (7.35-7.45) Arterial Blood pCO2 at Patient Temp 37 mmHg (35-46) Arterial Blood pO2 at Patient Temp 102 mmHg (75-108) Arterial Blood HCO3 25 mmol/L (21-28) Arterial Blood Base Excess 1 mmol/L (-3-3) FiO2 35 Test 01/03/22 13:05 01/03/22 23:59 01/04/22 04:56 01/04/22 05:00 Sodium Level 142 mmol/L (136-145) 141 mmol/L (136-145) Potassium Level 3.7 mmol/L (3.5-5.1) 3.7 mmol/L (3.5-5.1) Chloride Level 105 mmol/L (98-107) 104 mmol/L (98-107) Carbon Dioxide Level 28 mmol/L (21-32) 29 mmol/L (21-32) Anion Gap 9 (6-14) 8 (6-14) Blood Urea Nitrogen 30 mg/dL (7-20) 27 mg/dL (7-20) Creatinine 2.1 mg/dL (0.6-1.0) 2.1 mg/dL (0.6-1.0) Estimated GFR (Cockcroft-Gault) 24.6 24.6 Glucose Level 140 mg/dL (70-99) 199 mg/dL (70-99) Calcium Level 7.3 mg/dL (8.5-10.1) 7.6 mg/dL (8.5-10.1) Glucose (Fingerstick) 220 mg/dL (70-99) 198 mg/dL (70-99) Phosphorus Level 3.9 mg/dL (2.6-4.7) Albumin 1.2 g/dL (3.4-5.0) Test 01/04/22 08:15 O2 Saturation 96 % (92-99) Arterial Blood pH 7.44 (7.35-7.45) Arterial Blood pCO2 at Patient Temp 40 mmHg (35-46) Arterial Blood pO2 at Patient Temp 84 mmHg (75-108) Arterial Blood HCO3 26 mmol/L (21-28) Arterial Blood Base Excess 2 mmol/L (-3-3) FiO2 30 Laboratory Tests Test 01/03/22 11:49 01/03/22 13:05 01/03/22 23:59 01/04/22 04:56 Glucose (Fingerstick) 190 mg/dL (70-99) 220 mg/dL (70-99) 198 mg/dL (70-99) Sodium Level 142 mmol/L (136-145) Potassium Level 3.7 mmol/L (3.5-5.1) Chloride Level 105 mmol/L (98-107) Carbon Dioxide Level 28 mmol/L (21-32) Anion Gap 9 (6-14) Blood Urea Nitrogen 30 mg/dL (7-20) Creatinine 2.1 mg/dL (0.6-1.0) Estimated GFR (Cockcroft-Gault) 24.6 Glucose Level 140 mg/dL (70-99) Calcium Level 7.3 mg/dL (8.5-10.1) Test 01/04/22 05:00 01/04/22 08:15 Sodium Level 141 mmol/L (136-145) Potassium Level 3.7 mmol/L (3.5-5.1) Chloride Level 104 mmol/L (98-107) Carbon Dioxide Level 29 mmol/L (21-32) Anion Gap 8 (6-14) Blood Urea Nitrogen 27 mg/dL (7-20) Creatinine 2.1 mg/dL (0.6-1.0) Estimated GFR (Cockcroft-Gault) 24.6 Glucose Level 199 mg/dL (70-99) Calcium Level 7.6 mg/dL (8.5-10.1) Phosphorus Level 3.9 mg/dL (2.6-4.7) Albumin 1.2 g/dL (3.4-5.0) O2 Saturation 96 % (92-99) Arterial Blood pH 7.44 (7.35-7.45) Arterial Blood pCO2 at Patient Temp 40 mmHg (35-46) Arterial Blood pO2 at Patient Temp 84 mmHg (75-108) Arterial Blood HCO3 26 mmol/L (21-28) Arterial Blood Base Excess 2 mmol/L (-3-3) FiO2 30 Medications Active Scripts Medications Dose Route/Sig Max Daily Dose Days Date Category Dose Instructions Montelukast Sodium 10 Mg Tablet 1 Tab PO DAILY 12/24/21 Reported Stool Softener (Docusate Sodium) 50 Mg Capsule 50 Mg PO BID 06/02/19 Reported [place] 5-325 Tablet (Acetaminophen/Hydrocodone Bitart) 1 Each Tablet 1 Tab PO Q4HRS 06/02/19 Reported LAST DOSE GIVEN: Lantus Solostar (Insulin Glargine,Hum.rec.anlog) 100 Unit/1 Ml Insuln.pen 21 Unit SQ QHS 06/02/19 Reported Culturelle (Lactobacillus Rhamnosus Gg) 1 Each Capsule 1 Each PO DAILY 06/01/19 Reported Alive Once Daily Women 50 Plus (Mv-Mn/Folic Acid/Vit K/[id number]) 1 Each Tablet 1 Each PO DAILY 06/01/19 Reported [place] 5-325 Tablet (Acetaminophen/Hydrocodone Bitart) 1 Each Tablet 1 Tab PO PRN Q6HRS PRN 06/01/19 Reported Tizanidine Hcl 4 Mg Tablet 2 Tab PO TID PRN 06/01/19 Reported Proair Hfa Inhaler (Albuterol Sulfate) 8.5 Gm Hfa.aer.ad 1 Puff INH PRN Q6HRS PRN 01/19/19 Reported Montelukast Sodium Tablet (Montelukast Sodium) 10 Mg Tablet 1 Tab PO DAILY 01/19/19 Reported Losartan-Hctz 100-25 Mg Tab (Losartan/Hydrochlorothiazide) 1 Each Tablet 1 Tab PO DAILY 01/19/19 Reported Protonix (Pantoprazole Sodium) 20 Mg Tablet.dr 1 Tab PO DAILY 01/19/19 Reported Vitamin D3 (Cholecalciferol (Vitamin D3)) 1,000 Unit Tablet 1 Tab PO DAILY 01/19/19 Reported Cetirizine Hcl 10 Mg Tablet 1 Tab PO DAILY 01/19/19 Reported Janumet 50-1,000 Mg Tablet (Sitagliptin Phos/Metformin Hcl) 1 Each Tablet 1 Tab PO BID 01/19/19 Reported Impression . Acute hypoxemic respiratory failure multifactorial metabolic encephalopathy Acute kidney injury, per nephrology Possible sepsis Hypomagnesemia hypokalemia Uncontrolled hypertension Severe metabolic acidosis CVA--positive MRI 12/25/2021, see MRI report COPD Thyroid disorder Status post PEG Plan . Updated 01/03 ABG noted pH is 7.44 PCO2 40 PO2 of 84 Continue IV Cardene Assist-control ventilation Unable to time treat sedation down May require trach Appreciated neurology input DNR Monitor sodium, monitor creatinine CT abdomen no evidence of ischemia Continue empiric antibiotics Overall prognosis is poor Discussed with VAIBHAV DILLARD MD Jan 04, 2022 08:43
[2022-01-04] MEDS: CHOLECALCIFEROL (VITAMIN D3) 1,000 UNIT TABLET PO SCH (08:58)
[2022-01-04] MEDS: CETIRIZINE HCL 10 MG TABLET. PO SCH (08:58)
[2022-01-04] MEDS: ASPIRIN CHEWABLE 81 MG TABLET. PO SCH (08:58)
[2022-01-04] MEDS: FAMOTIDINE 20 MG/2 ML VIAL IVP SCH (08:58)
[2022-01-04] MEDS: MONTELUKAST SODIUM 10 MG TABLET. PO SCH (08:58)
[2022-01-04] MEDS: CHLORHEXIDINE 0.12% 15 ML MOUTHWASH. MM SCH ×2 (09:00→20:34)
[2022-01-04] MEDS: NICOTINE 21MG PATCH. TD SCH (09:00)
--- NOTE | 2022-01-04 11:26 | PDOC ---
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 Acute respiratory failure requiring BiPAP support Concern for early sepsis Dehydration Metabolic acidosis Acute electrolyte derangement, hypernatremia and hyperchloremia-possible dehydration History hypertension History of diabetes diabetes History of Present Illness History of Present Illness 01/04/2022 Patient seen and examined in the ICU She is on the vent AC/16/400/30 percent with 5 of PEEP (satting 100% and has a pH of 7.44) Art line in place Sedated with propofol and fentanyl PEG feed running at 30 cc an hour On Cardene drip but I discussed with RN working to titrate that off and start per PEG Norvasc Chart reviewed She remains critically ill 01/03/2022 Patient seen and examined in the ICU She remains on the vent AC/16/400/30 percent with 5 of PEEP Discussed with RN, the patient's urine output is a low Currently sedated with propofol Has IV Zosyn and IV Zyvox NG running at 30 cc an hour Has Berumen to bedside drainage ABIs are in place Art line appears clean dry intact and functioning well Chart reviewed She remains critically ill 01/02/2022 Patient seen and examined in the ICU She got her PEG yesterday but then apparently aspirated and had to be intubated Vent settings as follows AC/16/400/30 5% with 5 of PEEP Sedated with propofol fentanyl Has IV Zosyn hanging D5 water also hanging Creatinine bumped up a little bit (I called the pharmacy working to stop the Vanco and start Zyvox) Chart reviewed Discussed with RN She is critically ill 01/01/2022 Patient seen and examined in the ICU She remains on the vent AC/16/400/30 5% with 5 of PEEP Art line in place Sedated with propofol and fentanyl Has half-normal saline hanging with Zosyn Berumen to bedside drainage Chart reviewed Discussed with RN 12/31 Patient evaluated examined at bedside. She required intubation overnight and is currently intubated and sedated. Patient was intubated after family decided on continuing full treatment measures. Blood pressure improved. When seen patient unresponsive no withdrawal to pain. Pupils do still have reflex. Continue current. Nephrology pulmonology following. 45 minutes critical care time 12/30/2021 Rapid response called last night for desaturations down to the 70s. Labs were obtained showing hypernatremia. Patient still unresponsive and placed on BiPAP. ABG showed 7.1 //14. Concern for aspiration, worsening of stroke, or dehydration. Nephrology and pulmonology consulted. Patient transferred to the ICU. Empiric IV antibiotics are started and blood cultures are obtained. D5 bicarb drip started. Patient's chart, labs, images were reviewed and discussed with RN 12/29/21 No acute events overnight. Patient seen examined bedside. Sleeping in bed and unable to be arousable with sternal rub or to voice. Patient unable to follow through with speech evaluation. Will need to consider TPN for nutrition. Medicaid application pending. Patient's chart, labs, images were reviewed and discussed with RN 12/28 Patient evaluated examined at bedside. She was sleeping in bed unable to get her to open her eyes even with sternal rub. Some withdrawal to pain in the right lower extremity none in right upper extremity. Unable to follow commands to see if she could hold her arm against gravity. Still having some trouble controlling blood pressure is still on Cardene drip for now. Will schedule Vasotec and try to start weaning off the Cardene drip. 12/27 Evaluated and examined at bedside. She was resting in bed not easily awoken and still cannot provide me really with any history given her aphasic state. She did have some withdrawal to pain in the right lower extremity still no movement and right upper. PT OT. Neuro following. Plan discussed bedside RN. 12/26 Evaluated and examined at bedside. Is a bit lethargic today difficulty staying awake this morning. MRI showing acute infarcts. Neurology continues to follow. Patient remains aphasic. Therapy modalities. Blood pressure control with IV until able to take oral Okay to transfer out of ICU to CVC if bed is needed Vitals/I&O Vitals/I&O: Vital Signs Date Time Temp Pulse Resp B/P (MAP) Pulse Ox O2 Delivery O2 Flow Rate FiO2 01/04/22 11:01 99 Ventilator 01/04/22 10:36 68 165/60 01/04/22 07:00 16 01/04/22 04:00 99.4 99.4 I & O 01/03/22 01/03/22 01/04/22 15:00 23:00 07:00 Intake Total 260 ml 732 ml 2252 ml Output Total 265 ml 250 ml 325 ml Balance -5 ml 482 ml 1927 ml Physical Exam General: Other (Sedated on the vent) Heart: Regular rate Lungs: Crackles, Other (decreased base ) Abdomen: Other (New PEG tube in place) Extremities: No clubbing Skin: No breakdown Labs Labs: Laboratory Tests Test 01/03/22 11:49 01/03/22 13:05 01/03/22 23:59 01/04/22 04:56 Glucose (Fingerstick) 190 mg/dL (70-99) 220 mg/dL (70-99) 198 mg/dL (70-99) Sodium Level 142 mmol/L (136-145) Potassium Level 3.7 mmol/L (3.5-5.1) Chloride Level 105 mmol/L (98-107) Carbon Dioxide Level 28 mmol/L (21-32) Anion Gap 9 (6-14) Blood Urea Nitrogen 30 mg/dL (7-20) Creatinine 2.1 mg/dL (0.6-1.0) Estimated GFR (Cockcroft-Gault) 24.6 Glucose Level 140 mg/dL (70-99) Calcium Level 7.3 mg/dL (8.5-10.1) Test 01/04/22 05:00 01/04/22 08:15 Sodium Level 141 mmol/L (136-145) Potassium Level 3.7 mmol/L (3.5-5.1) Chloride Level 104 mmol/L (98-107) Carbon Dioxide Level 29 mmol/L (21-32) Anion Gap 8 (6-14) Blood Urea Nitrogen 27 mg/dL (7-20) Creatinine 2.1 mg/dL (0.6-1.0) Estimated GFR (Cockcroft-Gault) 24.6 Glucose Level 199 mg/dL (70-99) Calcium Level 7.6 mg/dL (8.5-10.1) Phosphorus Level 3.9 mg/dL (2.6-4.7) Albumin 1.2 g/dL (3.4-5.0) O2 Saturation 96 % (92-99) Arterial Blood pH 7.44 (7.35-7.45) Arterial Blood pCO2 at Patient Temp 40 mmHg (35-46) Arterial Blood pO2 at Patient Temp 84 mmHg (75-108) Arterial Blood HCO3 26 mmol/L (21-28) Arterial Blood Base Excess 2 mmol/L (-3-3) FiO2 30 Assessment and Plan Assessmemt and Plan Stroke (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) Respiratory failure New PEG Expressive aphasia unilateral weakness secondary to 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 Sepsis Dehydration Hyponatremia Hypokalemia Hypomagnesemia Metabolic acidosis Acute electrolyte derangement, hypernatremia and hyperchloremia-possible dehydration History hypertension History of diabetes diabetes Plan ICU monitoring Vent weaning Continue sedation with propofol fentanyl Monitor art line Maintain Berumen [place] to advance PEG feeds Zyvox and Zosyn Follow cultures Appreciate subspecialist input (nephrology gastroenterology neurology and pulmonary medicine) Trend labs Statins Aspirin DVT prophylaxis with Tacos Full code Sliding-scale insulin Prognosis extremely guarded CC time 31 minutes Comment Review of Relevant I have reviewed the following items chino (where applicable) has been applied. Medications: Current Medications Medications (Trade) Dose Ordered Sig/Fabio Route PRN Reason Start Time Stop Time Status Last Admin Dose Admin Heparin Sodium (Porcine) (Heparin Sodium) 5,000 unit Q8HRS SQ 01/03/22 14:00 01/04/22 06:11 Amlodipine Besylate (Norvasc) 10 mg DAILY PEG 01/04/22 10:00 01/04/22 10:36 Justifications for Admission TIA Indications Persistent neurologic signs?: Yes Justification for admission: There is persistence of patient's focal neurologic signs or symptoms or there is concern for recurrence of patient's neurological signs and symptoms. Severe hypertension?: Yes Justification for admission: There is concern for patient's severe hypertension of (>180/110mmHg--please indicate patient's BP here) that has not been controlled by ED treatment. Patient needs inpatient level of care for further evaluation and management. Other Justification JAGDISH ONEIL III DO Jan 04, 2022 11:26
[2022-01-04] MEDS: ATORVASTATIN CALCIUM 40 MG TABLET. PO SCH (20:48)
--- NOTE | 2022-01-04 21:56 | PDOC ---
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 She continues to have respiratory failure requiring intubation and ventilation. She continues to require sedation. There has not been evidence for any neurologic improvement at this time. She is having difficulty with critically elevated blood pressures and has required a Cardene drip. Attempts to taper the Cardene have not been successful. Neurologic prognosis continues to be guarded to poor. Plan She will continue with current medical management. Subjective Intubated, sedated and nonverbal. Objective Vital Signs Date Time Temp Pulse Resp B/P (MAP) Pulse Ox O2 Delivery O2 Flow Rate FiO2 01/04/22 21:00 65 16 153/61 99 Ventilator 01/04/22 20:00 98.2 98.2 Intake and Output 01/04/22 07:00 Intake Total 3244 ml Output Total 840 ml Balance 2404 ml IV Total 994 ml Tube Feeding 1469 ml Other 781 ml Output Urine Total 840 ml Gastric Drainage Total 0 ml PHYSICAL EXAM She was intubated and ventilated. FiO2 was 50%. She was on propofol and fentanyl. Noxious stimulation did not provoke any alerting. Her eyes were closed. She was not fighting the ventilator. There was no spontaneous movement. The arms were in extension. Nailbed pressure did not provoke a response in the upper extremities. Plantar stimulation did provoke upgoing toes bilaterally. There was edema of all 4 extremities. Review of Relevant I have reviewed the following items chino (where applicable) has been applied. Labs Laboratory Tests Test 01/03/22 00:06 01/03/22 05:00 01/03/22 05:08 01/03/22 07:50 Glucose (Fingerstick) 198 mg/dL (70-99) 187 mg/dL (70-99) Sodium Level 144 mmol/L (136-145) Potassium Level 3.2 mmol/L (3.5-5.1) Chloride Level 106 mmol/L (98-107) Carbon Dioxide Level 26 mmol/L (21-32) Anion Gap 12 (6-14) Blood Urea Nitrogen 31 mg/dL (7-20) Creatinine 2.2 mg/dL (0.6-1.0) Estimated GFR (Cockcroft-Gault) 23.3 Glucose Level 191 mg/dL (70-99) Calcium Level 7.7 mg/dL (8.5-10.1) Phosphorus Level 4.1 mg/dL (2.6-4.7) Albumin 1.3 g/dL (3.4-5.0) O2 Saturation 97 % (92-99) Arterial Blood pH 7.45 (7.35-7.45) Arterial Blood pCO2 at Patient Temp 37 mmHg (35-46) Arterial Blood pO2 at Patient Temp 102 mmHg (75-108) Arterial Blood HCO3 25 mmol/L (21-28) Arterial Blood Base Excess 1 mmol/L (-3-3) FiO2 35 Test 01/03/22 11:49 01/03/22 13:05 01/03/22 23:59 01/04/22 04:56 Glucose (Fingerstick) 190 mg/dL (70-99) 220 mg/dL (70-99) 198 mg/dL (70-99) Sodium Level 142 mmol/L (136-145) Potassium Level 3.7 mmol/L (3.5-5.1) Chloride Level 105 mmol/L (98-107) Carbon Dioxide Level 28 mmol/L (21-32) Anion Gap 9 (6-14) Blood Urea Nitrogen 30 mg/dL (7-20) Creatinine 2.1 mg/dL (0.6-1.0) Estimated GFR (Cockcroft-Gault) 24.6 Glucose Level 140 mg/dL (70-99) Calcium Level 7.3 mg/dL (8.5-10.1) Test 01/04/22 05:00 01/04/22 08:15 01/04/22 12:16 01/04/22 17:50 Sodium Level 141 mmol/L (136-145) Potassium Level 3.7 mmol/L (3.5-5.1) Chloride Level 104 mmol/L (98-107) Carbon Dioxide Level 29 mmol/L (21-32) Anion Gap 8 (6-14) Blood Urea Nitrogen 27 mg/dL (7-20) Creatinine 2.1 mg/dL (0.6-1.0) Estimated GFR (Cockcroft-Gault) 24.6 Glucose Level 199 mg/dL (70-99) Calcium Level 7.6 mg/dL (8.5-10.1) Phosphorus Level 3.9 mg/dL (2.6-4.7) Albumin 1.2 g/dL (3.4-5.0) O2 Saturation 96 % (92-99) Arterial Blood pH 7.44 (7.35-7.45) Arterial Blood pCO2 at Patient Temp 40 mmHg (35-46) Arterial Blood pO2 at Patient Temp 84 mmHg (75-108) Arterial Blood HCO3 26 mmol/L (21-28) Arterial Blood Base Excess 2 mmol/L (-3-3) FiO2 30 Glucose (Fingerstick) 230 mg/dL (70-99) 180 mg/dL (70-99) Laboratory Tests Test 01/03/22 23:59 01/04/22 04:56 01/04/22 05:00 01/04/22 08:15 Glucose (Fingerstick) 220 mg/dL (70-99) 198 mg/dL (70-99) Sodium Level 141 mmol/L (136-145) Potassium Level 3.7 mmol/L (3.5-5.1) Chloride Level 104 mmol/L (98-107) Carbon Dioxide Level 29 mmol/L (21-32) Anion Gap 8 (6-14) Blood Urea Nitrogen 27 mg/dL (7-20) Creatinine 2.1 mg/dL (0.6-1.0) Estimated GFR (Cockcroft-Gault) 24.6 Glucose Level 199 mg/dL (70-99) Calcium Level 7.6 mg/dL (8.5-10.1) Phosphorus Level 3.9 mg/dL (2.6-4.7) Albumin 1.2 g/dL (3.4-5.0) O2 Saturation 96 % (92-99) Arterial Blood pH 7.44 (7.35-7.45) Arterial Blood pCO2 at Patient Temp 40 mmHg (35-46) Arterial Blood pO2 at Patient Temp 84 mmHg (75-108) Arterial Blood HCO3 26 mmol/L (21-28) Arterial Blood Base Excess 2 mmol/L (-3-3) FiO2 30 Test 01/04/22 12:16 01/04/22 17:50 Glucose (Fingerstick) 230 mg/dL (70-99) 180 mg/dL (70-99) Microbiology 12/30/21 Blood Culture - Final, Complete NO GROWTH AFTER 5 DAYS Medications Current Medications Hydralazine HCl (Apresoline Inj) 10 mg PRN Q4HRS PRN IVP ELEVATED BP, SEE COMMENTS Last administered on 01/04/22at 06:06; Start 12/24/21 at 20:15 Acetaminophen (Tylenol) 650 mg PRN Q6HRS PRN PO MILD PAIN / TEMP > 100.3'F; Start 12/24/21 at 20:15 Ondansetron HCl (Zofran) 4 mg PRN Q4HRS PRN IVP NAUSEA/VOMITING; Start 12/24/21 at 20:15 Olanzapine (ZyPREXA ZYDIS) 5 mg PRN BID PRN PO ANXIETY / AGITATION Last administered on 12/24/21at 22:49; Start 12/24/21 at 20:15 Bisacodyl (Dulcolax Supp) 10 mg PRN DAILY PRN GA CONSTIPATION; Start 12/24/21 at 20:15 Nicardipine HCl 50 mg/Sodium Chloride 250 ml @ 25 mls/hr CONT PRN PRN IV PER PROTOCOL Last administered on 12/27/21at 15:42; Start 12/24/21 at 20:15; Stop 12/30/21 at 19:39; Status DC Atorvastatin Calcium (Lipitor) 80 mg QHS PO Last administered on 01/04/22at 20:48; Start 12/24/21 at 21:00 Acetaminophen (Tylenol) 650 mg PRN Q6HRS PRN PO MILD PAIN / TEMP > 100.3'F; Start 12/24/21 at 20:15; Stop 12/24/21 at 20:17; Status DC Bisacodyl (Dulcolax Supp) 10 mg PRN DAILY PRN GA CONSTIPATION; Start 12/24/21 at 20:15; Status UNV Famotidine (Pepcid Vial) 20 mg BID IVP Last administered on 12/26/21at 08:38; Start 12/24/21 at 21:00; Stop 12/26/21 at 08:51; Status DC Aspirin (Aspirin Rectal Supp) 300 mg PRN DAILY PRN GA IF UNABLE TO TAKE PO Last administered on 12/29/21at 10:28; Start 12/24/21 at 20:15; Stop 01/04/22 at 09:57; Status DC Acetaminophen (Tylenol Supp) 650 mg PRN Q6HRS PRN GA MILD PAIN / TEMP > 100.3'F; Start 12/24/21 at 20:15 Insulin Human Lispro (HumaLOG) 0-9 UNITS Q6HRS SQ Last administered on 01/04/22at 17:53; Start 12/25/21 at 00:00 Dextrose (Dextrose 50%-Water Syringe) 12.5 gm PRN Q15MIN PRN IV SEE COMMENTS; Start 12/24/21 at 20:15 Dextrose (Iv Dextrose 5%) 250 ml PRN Q15MIN PRN IV SEE COMMENTS; Start 12/24/21 at 20:15 Potassium Chloride/Water 100 ml @ 100 mls/hr Q1H IV ; Start 12/25/21 at 09:00; Stop 12/25/21 at 10:59; Status UNV Potassium Chloride/Water 100 ml @ 100 mls/hr Q1H IV Last administered on 12/25/21at 13:16; Start 12/25/21 at 09:00; Stop 12/25/21 at 12:59; Status DC Cetirizine HCl (ZyrTEC) 10 mg DAILY PO Last administered on 01/04/22at 08:58; Start 12/25/21 at 10:00 Vitamin D (Vitamin D3) 1,000 unit DAILY PO Last administered on 01/04/22at 08:58; Start 12/25/21 at 10:00 Montelukast Sodium (Singulair) 10 mg DAILY PO Last administered on 01/04/22at 08:58; Start 12/25/21 at 10:00 Losartan Potassium (Cozaar) 100 mg DAILY PO ; Start 12/25/21 at 10:00; Stop 12/31/21 at 14:46; Status DC Pantoprazole Sodium (Protonix) 40 mg DAILYAC PO ; Start 12/25/21 at 11:30; Stop 12/29/21 at 12:07; Status DC Lorazepam (Ativan Inj) 2 mg PRN Q4HRS PRN IVP ANXIETY / AGITATION Last administered on 12/29/21at 20:16; Start 12/25/21 at 10:00 Hydrochlorothiazide (Hydrodiuril) 25 mg DAILY PO ; Start 12/25/21 at 10:00; Stop 12/31/21 at 14:47; Status DC Sodium Chloride 1,000 ml @ 50 mls/hr Q20H IV Last administered on 12/29/21at 08:14; Start 12/25/21 at 17:00; Stop 12/30/21 at 10:35; Status DC Famotidine (Pepcid Vial) 20 mg DAILY IVP Last administered on 01/04/22at 08:58; Start 12/27/21 at 09:00 Labetalol HCl (Normodyne Iv Push) 10 mg PRN Q2HR PRN IVP HYPERTENSION (1ST) Last administered on 01/03/22at 11:52; Start 12/26/21 at 13:15 Heparin Sodium (Porcine) (Heparin Sodium) 5,000 unit Q8HRS SQ Last administered on 01/03/22at 06:22; Start 12/26/21 at 14:00; Stop 01/03/22 at 13:39; Status DC Labetalol HCl (Normodyne Iv Push) 20 mg PRN Q2HR PRN IVP HYPERTENSION (1ST) Last administered on 01/04/22at 07:28; Start 12/26/21 at 13:30 Clonidine HCl (Catapres Tts-2) 1 patch WEEKLY TD Last administered on 01/02/22at 09:40; Start 12/26/21 at 15:00 Nicotine (Nicoderm Cq 21mg) 1 patch DAILY TD Last administered on 01/03/22at 09:15; Start 12/26/21 at 15:00 Nitroglycerin (Nitro-Bid Oint) 1 inch Q6HRS TP Last administered on 01/04/22at 17:51; Start 12/26/21 at 18:00 Enalaprilat (Vasotec Inj) 1.25 mg Q6HRS IVP Last administered on 12/30/21at 12:54; Start 12/28/21 at 12:00; Stop 12/31/21 at 14:47; Status DC Cefazolin Sodium (Ancef) 1 gm 1X ONCE IVP ; Start 01/01/22 at 13:30; Stop at 08:01; Status DC Albuterol Sulfate (Ventolin Neb Soln) 2.5 mg RTQID NEB Last administered on 12/30/21at 07:30; Start 12/30/21 at 08:00; Stop 12/30/21 at 11:22; Status DC Albuterol Sulfate (Ventolin Neb Soln) 2.5 mg PRN Q4HRS PRN NEB SHORTNESS OF BREATH Last administered on 12/30/21at 01:55; Start 12/30/21 at 02:00 Piperacillin Sod/ Tazobactam Sod (Zosyn Per Pharmacy) 1 each PRN DAILY PRN MC SEE COMMENTS; Start 12/30/21 at 04:30 Potassium Chloride/Water 100 ml @ 100 mls/hr Q1H IV Last administered on 12/30/21at 09:25; Start 12/30/21 at 05:00; Stop 12/30/21 at 08:59; Status DC Piperacillin Sod/ Tazobactam Sod 3.375 gm/Sodium Chloride 50 ml @ 100 mls/hr Q6HRS IV Last administered on 01/04/22at 17:52; Start 12/30/21 at 06:00 Sodium Chloride 1,000 ml @ 75 mls/hr [id number] IV ; Start 12/30/21 at 08:30; Stop 12/30/21 at 11:22; Status DC Sodium Bicarbonate (Sodium Bicarb Adult 8.4% Syr) 50 meq 1X ONCE IV Last administered on 12/30/21at 08:30; Start 12/30/21 at 08:30; Stop 12/30/21 at 08:40; Status DC Albuterol/ Ipratropium (Duoneb) 3 ml RTQID NEB Last administered on 01/04/22at 20:00; Start 12/30/21 at 12:00 Vancomycin HCl (Vanco Per Pharmacy) 1 each PRN DAILY PRN MC SEE COMMENTS Last administered on 01/01/22at 12:42; Start 12/30/21 at 10:30; Stop 01/02/22 at 09:58; Status DC Sodium Bicarbonate (Sodium Bicarb Adult 8.4% Syr) 50 meq 1X ONCE IV Last administered on 12/30/21at 11:10; Start 12/30/21 at 10:30; Stop 12/30/21 at 10:34; Status DC Vancomycin HCl 1.5 gm/Sodium Chloride 500 ml @ 250 mls/hr 1X ONCE IV Last administered on 12/30/21at 10:51; Start 12/30/21 at 11:00; Stop 12/30/21 at 12:59; Status DC Sodium Bicarbonate 150 meq/Dextrose 1,150 ml @ 75 mls/hr [id number] IV Last administered on 12/31/21at 03:04; Start 12/30/21 at 11:00; Stop 12/31/21 at 08:24; Status DC Aspirin (Aspirin Rectal Supp) 300 mg DAILY GA Last administered on 01/02/22at 09:42; Start 12/30/21 at 11:00; Stop 01/02/22 at 15:08; Status DC Vancomycin HCl 1 gm/Sodium Chloride 250 ml @ 250 mls/hr Q24H IV Last administered on 12/31/21at 11:19; Start 12/31/21 at 11:00; Stop 01/01/22 at 11:42; Status DC Vancomycin HCl (Vancomycin Trough Level) 1 each 1X ONCE MC Last administered on 01/01/22at 10:30; Start 01/01/22 at 10:30; Stop 01/01/22 at 10:31; Status DC Lactobacillus Rhamnosus (Culturelle) 1 cap BID PO ; Start 12/30/21 at 21:00; Stop 01/02/22 at 07:33; Status DC Furosemide (Lasix) 40 mg 1X ONCE IVP Last administered on 12/30/21at 18:04; Start 12/30/21 at 17:45; Stop 12/30/21 at 17:46; Status DC Diltiazem HCl 125 mg/Sodium Chloride 125 ml @ 5 mls/hr CONT PRN IV PER PROTOCOL; Start 12/30/21 at 18:15; Stop 12/30/21 at 19:20; Status DC Furosemide (Lasix) 40 mg 1X ONCE IVP Last administered on 12/30/21at 22:24; Start 12/30/21 at 19:30; Stop 12/30/21 at 19:38; Status DC Nicardipine HCl 50 mg/Sodium Chloride 250 ml @ 12.5 mls/hr CONT PRN IV PER PROTOCOL Last administered on 01/04/22at 17:58; Start 12/30/21 at 19:30 Succinylcholine Chloride (Anectine) 200 mg STK-MED ONCE .ROUTE ; Start 12/30/21 at 19:49; Stop 12/30/21 at 19:49; Status DC Etomidate (Amidate) 20 mg STK-MED ONCE IV ; Start 12/30/21 at 19:49; Stop 12/30/21 at 19:49; Status DC Fentanyl Citrate 30 ml @ 0 mls/hr CONT PRN IV SEE PROTOCOL Last administered on 01/04/22at 20:49; Start 12/30/21 at 21:30 Midazolam HCl 100 ml @ 1 mls/hr CONT PRN IV SEE PROTOCOL; Start 12/30/21 at 21:30 Propofol 100 ml @ 1.917 mls/ hr CONT PRN IV PER PROTOCOL Last administered on 01/04/22at 13:43; Start 12/30/21 at 21:30 Vecuronium [place] (Norcuron Bolus) 6 mg PRN 1X PRN IV VENT INDUCTION; Start 12/30/21 at 21:30; Stop 12/31/21 at 21:29; Status DC Chlorhexidine Gluconate (Peridex) 15 ml BID MM Last administered on 01/03/22at 20:37; Start 12/31/21 at 09:00 Glycerin/ Hypromellose/ Polyethylene (Artificial Tears) 1 drop PRN Q1HR PRN OU DRY EYE; Start 12/30/21 at 21:30 Dexmedetomidine HCl 400 mcg/ Sodium Chloride 100 ml @ 3.195 mls/ hr CONT PRN IV PER PROTOCOL; Start 12/30/21 at 21:30 Midazolam HCl (Versed) 5 mg PRN 1X PRN IVP VENT INDUCTION; Start 12/30/21 at 21:30; Stop 12/31/21 at 21:29; Status DC Sodium Chloride 500 ml @ 500 mls/hr 1X PRN PRN IV SEE COMMENTS; Start 12/30/21 at 21:30 Atropine Sulfate (ATROPINE 0.5mg SYRINGE) 0.5 mg PRN Q5MIN PRN IV SEE COMMENTS; Start 12/30/21 at 21:30 Sodium Chloride 1,000 ml @ 75 mls/hr [id number] IV Last administered on 01/01/22at 04:01; Start 12/31/21 at 08:30; Stop 01/01/22 at 10:39; Status DC Potassium Bicarbonate (Potassium Effervescent Tablet) 40 meq 1X ONCE PEG Last administered on 12/31/21at 09:07; Start 12/31/21 at 08:30; Stop 12/31/21 at 08 :31; Status DC Magnesium Sulfate 50 ml @ 25 mls/hr 1X ONCE IV Last administered on 12/31/21at 09:06; Start 12/31/21 at 08:30; Stop 12/31/21 at 10:29; Status DC Etomidate (Amidate) 20 mg STK-MED ONCE IV ; Start 12/30/21 at 20:00; Stop 01/01/22 at 09:12; Status DC Succinylcholine Chloride (Anectine) 200 mg STK-MED ONCE .ROUTE ; Start 12/30/21 at 20:00; Stop 01/01/22 at 09:12; Status DC Dextrose 1,000 ml @ 75 mls/hr [id number] IV Last administered on 01/02/22at 05:15; Start 01/01/22 at 10:45; Stop 01/02/22 at 16:48; Status DC Vancomycin HCl 1 gm/Sodium Chloride 250 ml @ 250 mls/hr Q36H IV Last administered on 01/01/22at 22:52; Start 01/01/22 at 23:00; Stop 01/02/22 at 09:58; Status DC Vancomycin HCl (Vancomycin Trough Level) 1 each 1X ONCE MC ; Start 01/03/22 at 10:30; Stop 01/03/22 at 10:31; Status Cancel Sodium Bicarbonate (Sodium Bicarb Adult 8.4% Syr) 50 meq STK-MED ONCE .ROUTE ; Start 12/30/21 at 20:00; Stop 01/01/22 at 13:17; Status DC Magnesium Sulfate/ Dextrose (Magnesium Sulfate PREMIX 1GM) 1 gm STK-MED ONCE IV ; Start 12/30/21 at 20:00; Stop 01/01/22 at 13:17; Status DC Epinephrine HCl (EPINEPHrine SYRINGE) 3 mg STK-MED ONCE .ROUTE ; Start 12/30/21 at 20:00; Stop 01/01/22 at 13:17; Status DC Amiodarone HCl (Cordarone) 300 mg STK-MED ONCE .ROUTE ; Start 12/30/21 at 20:00; Stop 01/01/22 at 13:17; Status DC Furosemide (Lasix) 80 mg 1X ONCE IVP Last administered on 01/02/22at 09:41; Start 01/02/22 at 09:30; Stop 01/02/22 at 09:31; Status DC Potassium Bicarbonate (Potassium Effervescent Tablet) 40 meq 1X ONCE PEG Last administered on 01/02/22at 09:40; Start 01/02/22 at 09:30; Stop 01/02/22 at 09:31; Status DC Linezolid/Dextrose 300 ml @ 300 mls/hr Q12HR IV Last administered on 01/04/22at 20:48; Start 01/02/22 at 21:00 Aspirin (Aspirin Chewable) 162 mg [id number] PO Last administered on 01/04/22at 08:58; Start 01/03/22 at 08:00 Potassium Bicarbonate (Potassium Effervescent Tablet) 40 meq 1X ONCE PEG Last administered on 01/02/22at 17:54; Start 01/02/22 at 17:45; Stop 01/02/22 at 17:47; Status DC Potassium Chloride/Water 100 ml @ 100 mls/hr Q1H IV Last administered on 01/03/22at 11:53; Start 01/03/22 at 09:00; Stop 01/03/22 at 12:59; Status DC Heparin Sodium (Porcine) (Heparin Sodium) 5,000 unit Q8HRS SQ Last administered on 01/04/22at 13:44; Start 01/03/22 at 14:00 Amlodipine Besylate (Norvasc) 10 mg DAILY PEG Last administered on 01/04/22at 10:36; Start 01/04/22 at 10:00 Active Scripts Active Reported Montelukast Sodium 10 Mg Tablet 1 Tab PO DAILY Stool Softener (Docusate Sodium) 50 Mg Capsule 50 Mg PO BID [place] 5-325 Tablet (Acetaminophen/Hydrocodone Bitart) 1 Each Tablet 1 Tab PO Q4 HRS LAST DOSE GIVEN: Lantus Solostar (Insulin Glargine,Hum.rec.anlog) 100 Unit/1 Ml Insuln.pen 21 Unit SQ QHS Culturelle (Lactobacillus Rhamnosus Gg) 1 Each Capsule 1 Each PO DAILY Alive Once Daily Women 50 Plus (Mv-Mn/Folic Acid/Vit [id number]) 1 Each Tablet 1 Each PO DAILY [place] 5-325 Tablet (Acetaminophen/Hydrocodone Bitart) 1 Each Tablet 1 Tab PO PRN Q6HRS PRN Tizanidine Hcl 4 Mg Tablet 2 Tab PO TID PRN Proair Hfa Inhaler (Albuterol Sulfate) 8.5 Gm Hfa.aer.ad 1 Puff INH PRN Q6HRS PRN Montelukast Sodium Tablet (Montelukast Sodium) 10 Mg Tablet 1 Tab PO DAILY Losartan-Hctz 100-25 Mg Tab (Losartan/Hydrochlorothiazide) 1 Each Tablet 1 Tab PO DAILY Protonix (Pantoprazole Sodium) 20 Mg Tablet.dr 1 Tab PO DAILY Vitamin D3 (Cholecalciferol (Vitamin D3)) 1,000 Unit Tablet 1 Tab PO DAILY Cetirizine Hcl 10 Mg Tablet 1 Tab PO DAILY Janumet 50-1,000 Mg Tablet (Sitagliptin Phos/Metformin Hcl) 1 Each Tablet 1 Tab PO BID Vitals/I & O Vital Sign - Last 24 Hours 01/03/22 01/03/22 01/03/22 01/04/22 22:00 23:00 23:00 00:00 Pulse 70 60 81 Resp 19 16 B/P (MAP) 157/68 185/73 226/88 Pulse Ox 99 99 100 O2 Delivery Ventilator Ventilator Ventilator 01/04/22 01/04/22 01/04/22 01/04/22 00:00 00:00 01:00 02:00 Temp 99.1 99.1 Pulse 63 66 63 Resp 16 16 16 B/P (MAP) 197/74 155/64 179/72 Pulse Ox 99 99 100 O2 Delivery Ventilator Ventilator Ventilator 01/04/22 01/04/22 01/04/22 01/04/22 02:00 03:00 04:00 04:00 Temp 99.4 99.4 Pulse 88 65 Resp 18 16 B/P (MAP) 202/84 184/70 Pulse Ox 100 100 99 O2 Delivery Ventilator Ventilator Ventilator 01/04/22 01/04/22 01/04/22 01/04/22 04:57 05:00 06:00 06:06 Pulse 64 66 86 Resp 16 16 B/P (MAP) 166/66 216/78 269/98 Pulse Ox 100 100 99 O2 Delivery Ventilator Ventilator Ventilator 01/04/22 01/04/22 01/04/22 01/04/22 06:07 07:00 07:28 07:45 Pulse 65 79 65 Resp 16 B/P (MAP) 223/76 200/69 223/76 242/84 Pulse Ox 100 O2 Delivery Ventilator 01/04/22 01/04/22 01/04/22 01/04/22 08:00 08:00 08:00 08:15 Temp 99.1 99.1 Pulse 73 Resp 16 B/P (MAP) 169/64 180/64 Pulse Ox 99 O2 Delivery Ventilator Mechanical Ventilator 01/04/22 01/04/22 01/04/22 01/04/22 08:27 08:30 09:00 09:30 Pulse 71 Resp 16 B/P (MAP) 178/64 150/60 192/68 Pulse Ox 100 99 O2 Delivery Ventilator Ventilator 01/04/22 01/04/22 01/04/22 01/04/22 09:45 10:00 10:36 11:00 Pulse 69 68 69 Resp 16 16 B/P (MAP) 152/60 165/61 165/60 146/60 Pulse Ox 99 99 O2 Delivery Ventilator Ventilator 01/04/22 01/04/22 01/04/22 01/04/22 11:01 12:00 12:00 12:00 Temp 98.5 98.5 Pulse 68 Resp 16 B/P (MAP) 154/60 Pulse Ox 99 99 O2 Delivery Ventilator Ventilator Mechanical Ventilator 01/04/22 01/04/22 01/04/22 01/04/22 12:17 13:00 13:30 13:45 Pulse 70 62 Resp 16 B/P (MAP) 160/62 126/54 136/56 170/66 Pulse Ox 99 O2 Delivery Ventilator 01/04/22 01/04/22 01/04/22 01/04/22 14:00 15:00 15:30 15:31 Pulse 64 64 Resp 16 16 B/P (MAP) 150/58 158/58 236/80 Pulse Ox 100 100 100 O2 Delivery Ventilator Ventilator Ventilator 01/04/22 01/04/22 01/04/22 01/04/22 15:45 16:00 16:00 16:00 Temp 98.4 98.4 Pulse 66 Resp 16 B/P (MAP) 152/58 148/56 Pulse Ox 100 O2 Delivery Ventilator Mechanical Ventilator 01/04/22 01/04/22 01/04/22 01/04/22 17:00 17:15 17:45 17:51 Pulse 66 76 Resp 16 B/P (MAP) 118/48 128/54 146/58 179/63 Pulse Ox 99 O2 Delivery Ventilator 01/04/22 01/04/22 01/04/22 01/04/22 18:00 19:00 20:00 20:00 Temp 98.2 98.2 Pulse 64 64 87 Resp 16 16 16 B/P (MAP) 134/54 141/55 165/65 Pulse Ox 99 99 99 O2 Delivery Ventilator Ventilator Mechanical Ventilator Ventilator 01/04/22 01/04/22 20:00 21:00 Pulse 65 Resp 16 B/P (MAP) 153/61 Pulse Ox 99 O2 Delivery Ventilator Intake and Output 01/03/22 01/03/22 01/04/22 15:00 23:00 07:00 Intake Total 260 ml 732 ml 2252 ml Output Total 265 ml 250 ml 325 ml Balance -5 ml 482 ml 1927 ml Justicifation of Admission Dx: Justifications for Admission: Justification of Admission Dx: Yes Stroke - Ischemic: Stroke-Ischemic NATY MANCILLA MD Jan 04, 2022 21:56
[2022-01-05] VITALS (33 sets, daily range): BP systolic 110–187; BP diastolic 56–94
[2022-01-05] MEDS: PIPERACILLIN/TAZOBACTAM 3.375 GM in IV NORMAL SALINE 50ML 50 ML IV SCH ×4 (05:59→23:52)
[2022-01-05] MEDS: PROPOFOL 100 ML IV PRN ×3 (06:02→18:43)
[2022-01-05] MEDS: NITROGLYCERIN OINT 1 GM PACKET. TP SCH ×4 (06:03→23:55)
[2022-01-05] MEDS: INSULIN LISPRO 300 UNITS/3 ML VIAL. SQ SCH ×4 (06:06→23:57)
[2022-01-05] MEDS: HEPARIN for SUB-Q USE 5,000 UNIT/ML VIAL. SQ SCH ×3 (06:06→21:50)
[2022-01-05 06:13] LABS: ALBUMIN 1.3 g/dL (3.4-5.0); CALCIUM 8.9 mg/dL (8.5-10.1); CREATININE 2.1 mg/dL (0.6-1.0); GFR 24.6; PHOSPHORUS 4.5 mg/dL (2.6-4.7); POTASSIUM 3.4 mmol/L (3.5-5.1)
[2022-01-05 07:55] LABS: BASE EXCESS ABG 1 mmol/L (-3-3); HCO3 ABG 25 mmol/L (21-28); PCO2 ABG 40 mmHg (35-46); PO2 ABG 81 mmHg (75-108); SAT O2 ABG 96 % (92-99)
[2022-01-05] MEDS: IPRATRPIUM/ALBUTEROL 0.5/2.5MG 3 ML NEBU. NEB SCH ×4 (07:59→20:26)
[2022-01-05 08:00] LABS: FIO2 ABG 30
[2022-01-05] MEDS: CETIRIZINE HCL 10 MG TABLET. PO SCH (08:08)
[2022-01-05] MEDS: ASPIRIN CHEWABLE 81 MG TABLET. PO SCH (08:08)
[2022-01-05] MEDS: CHOLECALCIFEROL (VITAMIN D3) 1,000 UNIT TABLET PO SCH (08:08)
[2022-01-05] MEDS: MONTELUKAST SODIUM 10 MG TABLET. PO SCH (08:08)
[2022-01-05] MEDS: FAMOTIDINE 20 MG/2 ML VIAL IVP SCH (08:09)
[2022-01-05] MEDS: NICOTINE 21MG PATCH. TD SCH (08:09)
[2022-01-05] MEDS: POTASSIUM CHLORIDE 10MEQ 100 ML IV SCH ×2 (08:10→08:35)
[2022-01-05] MEDS: CHLORHEXIDINE 0.12% 15 ML MOUTHWASH. MM SCH ×2 (08:10→20:43)
[2022-01-05] MEDS: hydrALAZINE 20 MG/ML VIAL. IVP PRN (08:33)
[2022-01-05] MEDS: LABETALOL 20 MG/4 ML DISP.SYRIN. IVP PRN ×2 (08:34→22:17)
--- NOTE | 2022-01-05 10:14 | PDOC ---
PULMONARY PROGRESS NOTES DATE: 01/05/22 TIME: 10:14 Subjective Sedated, assist-control ventilation, IV Cardene Vitals Vital Signs Date Time Temp Pulse Resp B/P (MAP) Pulse Ox O2 Delivery O2 Flow Rate FiO2 01/05/22 08:34 76 151/66 01/05/22 07:56 100 Ventilator 01/05/22 07:00 16 01/05/22 04:00 98.3 98.3 Comments Patient is unable to perform review of systems secondary to current clinical state Lungs: Crackles Cardiovascular: S1, S2 Abdomen: Soft Extremities: Other Skin: Warm, Dry Labs Laboratory Tests Test 01/03/22 11:49 01/03/22 13:05 01/03/22 23:59 01/04/22 04:56 Glucose (Fingerstick) 190 mg/dL (70-99) 220 mg/dL (70-99) 198 mg/dL (70-99) Sodium Level 142 mmol/L (136-145) Potassium Level 3.7 mmol/L (3.5-5.1) Chloride Level 105 mmol/L (98-107) Carbon Dioxide Level 28 mmol/L (21-32) Anion Gap 9 (6-14) Blood Urea Nitrogen 30 mg/dL (7-20) Creatinine 2.1 mg/dL (0.6-1.0) Estimated GFR (Cockcroft-Gault) 24.6 Glucose Level 140 mg/dL (70-99) Calcium Level 7.3 mg/dL (8.5-10.1) Test 01/04/22 05:00 01/04/22 08:15 01/04/22 12:16 01/04/22 17:50 Sodium Level 141 mmol/L (136-145) Potassium Level 3.7 mmol/L (3.5-5.1) Chloride Level 104 mmol/L (98-107) Carbon Dioxide Level 29 mmol/L (21-32) Anion Gap 8 (6-14) Blood Urea Nitrogen 27 mg/dL (7-20) Creatinine 2.1 mg/dL (0.6-1.0) Estimated GFR (Cockcroft-Gault) 24.6 Glucose Level 199 mg/dL (70-99) Calcium Level 7.6 mg/dL (8.5-10.1) Phosphorus Level 3.9 mg/dL (2.6-4.7) Albumin 1.2 g/dL (3.4-5.0) O2 Saturation 96 % (92-99) Arterial Blood pH 7.44 (7.35-7.45) Arterial Blood pCO2 at Patient Temp 40 mmHg (35-46) Arterial Blood pO2 at Patient Temp 84 mmHg (75-108) Arterial Blood HCO3 26 mmol/L (21-28) Arterial Blood Base Excess 2 mmol/L (-3-3) FiO2 30 Glucose (Fingerstick) 230 mg/dL (70-99) 180 mg/dL (70-99) Test 01/04/22 23:40 01/05/22 05:18 01/05/22 05:30 01/05/22 07:45 Glucose (Fingerstick) 188 mg/dL (70-99) 195 mg/dL (70-99) Sodium Level 139 mmol/L (136-145) Potassium Level 3.4 mmol/L (3.5-5.1) Chloride Level 102 mmol/L (98-107) Carbon Dioxide Level 27 mmol/L (21-32) Anion Gap 10 (6-14) Blood Urea Nitrogen 30 mg/dL (7-20) Creatinine 2.1 mg/dL (0.6-1.0) Estimated GFR (Cockcroft-Gault) 24.6 Glucose Level 188 mg/dL (70-99) Calcium Level 8.9 mg/dL (8.5-10.1) Phosphorus Level 4.5 mg/dL (2.6-4.7) Albumin 1.3 g/dL (3.4-5.0) O2 Saturation 96 % (92-99) Arterial Blood pH 7.42 (7.35-7.45) Arterial Blood pCO2 at Patient Temp 40 mmHg (35-46) Arterial Blood pO2 at Patient Temp 81 mmHg (75-108) Arterial Blood HCO3 25 mmol/L (21-28) Arterial Blood Base Excess 1 mmol/L (-3-3) FiO2 30 Laboratory Tests Test 01/04/22 12:16 01/04/22 17:50 01/04/22 23:40 01/05/22 05:18 Glucose (Fingerstick) 230 mg/dL (70-99) 180 mg/dL (70-99) 188 mg/dL (70-99) 195 mg/dL (70-99) Test 01/05/22 05:30 01/05/22 07:45 Sodium Level 139 mmol/L (136-145) Potassium Level 3.4 mmol/L (3.5-5.1) Chloride Level 102 mmol/L (98-107) Carbon Dioxide Level 27 mmol/L (21-32) Anion Gap 10 (6-14) Blood Urea Nitrogen 30 mg/dL (7-20) Creatinine 2.1 mg/dL (0.6-1.0) Estimated GFR (Cockcroft-Gault) 24.6 Glucose Level 188 mg/dL (70-99) Calcium Level 8.9 mg/dL (8.5-10.1) Phosphorus Level 4.5 mg/dL (2.6-4.7) Albumin 1.3 g/dL (3.4-5.0) O2 Saturation 96 % (92-99) Arterial Blood pH 7.42 (7.35-7.45) Arterial Blood pCO2 at Patient Temp 40 mmHg (35-46) Arterial Blood pO2 at Patient Temp 81 mmHg (75-108) Arterial Blood HCO3 25 mmol/L (21-28) Arterial Blood Base Excess 1 mmol/L (-3-3) FiO2 30 Medications Active Scripts Medications Dose Route/Sig Max Daily Dose Days Date Category Dose Instructions Montelukast Sodium 10 Mg Tablet 1 Tab PO DAILY 12/24/21 Reported Stool Softener (Docusate Sodium) 50 Mg Capsule 50 Mg PO BID 06/02/19 Reported Harrison 5-325 Tablet (Acetaminophen/Hydrocodone Bitart) 1 Each Tablet 1 Tab PO Q4HRS 06/02/19 Reported LAST DOSE GIVEN: Lantus Solostar (Insulin Glargine,Hum.rec.anlog) 100 Unit/1 Ml Insuln.pen 21 Unit SQ QHS 06/02/19 Reported Culturelle (Lactobacillus Rhamnosus Gg) 1 Each Capsule 1 Each PO DAILY 06/01/19 Reported Alive Once Daily Women 50 Plus (Mv-Mn/Folic Acid/Vit K/[id number]) 1 Each Tablet 1 Each PO DAILY 06/01/19 Reported Harrison 5-325 Tablet (Acetaminophen/Hydrocodone Bitart) 1 Each Tablet 1 Tab PO PRN Q6HRS PRN 06/01/19 Reported Tizanidine Hcl 4 Mg Tablet 2 Tab PO TID PRN 06/01/19 Reported Proair Hfa Inhaler (Albuterol Sulfate) 8.5 Gm Hfa.aer.ad 1 Puff INH PRN Q6HRS PRN 01/19/19 Reported Montelukast Sodium Tablet (Montelukast Sodium) 10 Mg Tablet 1 Tab PO DAILY 01/19/19 Reported Losartan-Hctz 100-25 Mg Tab (Losartan/Hydrochlorothiazide) 1 Each Tablet 1 Tab PO DAILY 01/19/19 Reported Protonix (Pantoprazole Sodium) 20 Mg Tablet.dr 1 Tab PO DAILY 01/19/19 Reported Vitamin D3 (Cholecalciferol (Vitamin D3)) 1,000 Unit Tablet 1 Tab PO DAILY 01/19/19 Reported Cetirizine Hcl 10 Mg Tablet 1 Tab PO DAILY 01/19/19 Reported Janumet 50-1,000 Mg Tablet (Sitagliptin Phos/Metformin Hcl) 1 Each Tablet 1 Tab PO BID 01/19/19 Reported Impression . Acute hypoxemic respiratory failure multifactorial metabolic encephalopathy Acute kidney injury, per nephrology Possible sepsis Hypomagnesemia hypokalemia Uncontrolled hypertension Severe metabolic acidosis CVA--positive MRI 12/25/2021, see MRI report COPD Thyroid disorder Status post PEG Plan . Updated 01/05 ABG noted PO2 of 81 Continue IV Cardene Assist-control Status post PEG I had a lengthy discussion with , patient has expressed in the past that she does not want to live in a persistent vegetative state, would not want trach, and long-term nonweanable unit. wishes to proceed with DNR Continue current support, will revisit the possibility of withdrawing care next week Updated 01/04 ABG noted pH is 7.44 PCO2 40 PO2 of 84 Continue IV Cardene Assist-control ventilation Unable to time treat sedation down May require trach Appreciated neurology input Monitor sodium, monitor creatinine CT abdomen no evidence of ischemia Continue empiric antibiotics Overall prognosis is poor Discussed with VAIBHAV DILLARD MD Jan 05, 2022 10:14
--- NOTE | 2022-01-05 10:48 | PDOC ---
Date of Service: DATE: 01/05/22 TIME: 10:44 Objective: Objective: No GI concerns per nurse. Vital Signs: Vital Signs Date Time Temp Pulse Resp B/P (MAP) Pulse Ox O2 Delivery O2 Flow Rate FiO2 01/05/22 10:27 99 Ventilator 01/05/22 08:34 76 151/66 01/05/22 07:00 16 01/05/22 04:00 98.3 98.3 Labs: Laboratory Tests Test 01/04/22 12:16 01/04/22 17:50 01/04/22 23:40 01/05/22 05:18 Glucose (Fingerstick) 230 mg/dL 180 mg/dL 188 mg/dL 195 mg/dL Test 01/05/22 05:30 01/05/22 07:45 Sodium Level 139 mmol/L Potassium Level 3.4 mmol/L Chloride Level 102 mmol/L Carbon Dioxide Level 27 mmol/L Anion Gap 10 Blood Urea Nitrogen 30 mg/dL Creatinine 2.1 mg/dL Estimated GFR (Cockcroft-Gault) 24.6 Glucose Level 188 mg/dL Calcium Level 8.9 mg/dL Phosphorus Level 4.5 mg/dL Albumin 1.3 g/dL O2 Saturation 96 % Arterial Blood pH 7.42 Arterial Blood pCO2 at Patient Temp 40 mmHg Arterial Blood pO2 at Patient Temp 81 mmHg Arterial Blood HCO3 25 mmol/L Arterial Blood Base Excess 1 mmol/L FiO2 30 BLOOD CULTURE Final NO GROWTH AFTER 5 DAYS PE: GEN: intubated LUNGS: vent ABD: soft, PEG in place, feeds @ 30cc NEURO/PSYCH: sedated A/P: S/p PEG Bilateral thalamic infarcts HTN, MICHELET Anemia - no obvious bleeding, on ASA -- Poor prognosis, PEG functioning. Can give acid-construction representative through PEG. Justicifation of Admission Dx: Justifications for Admission: Justification of Admission Dx: Yes Stroke - Ischemic: Stroke-Ischemic SHANICE RAE Jan 05, 2022 10:48
--- NOTE | 2022-01-05 10:54 | PDOC ---
DATE OF SERVICE DATE: 01/05/22 TIME: 10:53 SUBJECTIVE ROS Remains Intubated OBJECTIVE Vital Signs Vital Signs Date Time Temp Pulse Resp B/P (MAP) Pulse Ox O2 Delivery O2 Flow Rate FiO2 01/05/22 10:27 99 Ventilator 01/05/22 08:34 76 151/66 01/05/22 07:00 16 01/05/22 04:00 98.3 98.3 I & 0 Intake and Output 01/05/22 07:00 Intake Total 3801 ml Output Total 960 ml Balance 2841 ml IV Total 1799 ml Tube Feeding 1460 ml Other 542 ml Output Urine Total 960 ml Gastric Drainage Total 0 ml PHYSICAL EXAM Physical Exam General Appearance: Intubated HEEN ETT + Skin: warm, No rash Respiratory: bilateral CTA ant Heart: S1S2 Abdomen: soft, bowel sounds present Genitourinary: Berumen Extremities: No LE edema , No cyanosis Neurology: sedated DIAGNOSIS/ASSESSMENT Assessment & Plan MICHELET - - Creat trended up since admission , 1.7-->2.4; Stable some decline in UOP, will give Lasix x 1 80 mg IV , no emergent indication for dialysis , monitor daily and re-evaluate Supportive care, avoid Nephrotoxins . Vanc levels were high HyperNatremia - Was on IV bicarb, dced . switched to IV Hypotonic fluid . Has PEG now for TF with water flushes . Na normal HypoKalemia - mild, replace HypOmagnesemia - normal Mg Anemia- Hgb trending down- defer to primary ? 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 DM II- primary managing She is a DNR now Discussed with RN COMMENT/RELEVANT DATA Meds Current Medications Medications (Trade) Dose Ordered Sig/Fabio Start Time Stop Time Status Last Admin Dose Admin Acetaminophen (Tylenol Supp) 650 mg PRN Q6HRS PRN 12/24/21 20:15 Acetaminophen (Tylenol) 650 mg PRN Q6HRS PRN 12/24/21 20:15 12/24/21 20:17 DC Albuterol Sulfate (Ventolin Neb Soln) 2.5 mg PRN Q4HRS PRN 12/30/21 02:00 12/30/21 01:55 2.5 MG Albuterol/ Ipratropium (Duoneb) 3 ml RTQID 12/30/21 12:00 01/05/22 07:59 3 ML Amiodarone HCl (Cordarone) 300 mg STK-MED ONCE 12/30/21 20:00 01/01/22 13:17 DC Amlodipine Besylate (Norvasc) 10 mg DAILY 01/04/22 10:00 01/05/22 08:09 10 MG Aspirin (Aspirin Chewable) 162 mg [id number] 01/03/22 08:00 01/05/22 08:08 162 MG Aspirin (Aspirin Rectal Supp) 300 mg DAILY 12/30/21 11:00 01/02/22 15:08 DC 01/02/22 09:42 300 MG Atorvastatin Calcium (Lipitor) 80 mg QHS 12/24/21 21:00 01/04/22 20:48 80 MG Atropine Sulfate (ATROPINE 0.5mg SYRINGE) 0.5 mg PRN Q5MIN PRN 12/30/21 21:30 Bisacodyl (Dulcolax Supp) 10 mg PRN DAILY PRN 12/24/21 20:15 UNV Cefazolin Sodium (Ancef) 1 gm 1X ONCE 01/01/22 13:30 01/01/22 08:01 DC Cetirizine HCl (ZyrTEC) 10 mg DAILY 12/25/21 10:00 01/05/22 08:08 10 MG Chlorhexidine Gluconate (Peridex) 15 ml BID 12/31/21 09:00 01/03/22 20:37 15 ML Clonidine HCl (Catapres Tts-2) 1 patch WEEKLY 12/26/21 15:00 01/02/22 09:40 1 PATCH Dexmedetomidine HCl 400 mcg/ Sodium Chloride 100 ml @ 3.195 mls/ hr CONT PRN 12/30/21 21:30 Dextrose 1,000 ml @ 75 mls/hr [id number] 01/01/22 10:45 01/02/22 16:48 DC 01/02/22 05:15 75 MLS/HR Dextrose (Dextrose 50%-Water Syringe) 12.5 gm PRN Q15MIN PRN 12/24/21 20:15 Dextrose (Iv Dextrose 5%) 250 ml PRN Q15MIN PRN 12/24/21 20:15 Diltiazem HCl 125 mg/Sodium Chloride 125 ml @ 5 mls/hr CONT PRN 12/30/21 18:15 12/30/21 19:20 DC Enalaprilat (Vasotec Inj) 1.25 mg Q6HRS 12/28/21 12:00 12/31/21 14:47 DC 12/30/21 12:54 1.25 MG Epinephrine HCl (EPINEPHrine SYRINGE) 3 mg STK-MED ONCE 12/30/21 20:00 01/01/22 13:17 DC Etomidate (Amidate) 20 mg STK-MED ONCE 12/30/21 20:00 01/01/22 09:12 DC Famotidine (Pepcid Vial) 20 mg DAILY 12/27/21 09:00 01/05/22 10:49 DC 01/05/22 08:09 20 MG Fentanyl Citrate 30 ml @ 0 mls/hr CONT PRN 12/30/21 21:30 01/04/22 20:49 1.25 MLS/HR Furosemide (Lasix) 80 mg 1X ONCE 01/02/22 09:30 01/02/22 09:31 DC 01/02/22 09:41 80 MG Glycerin/ Hypromellose/ Polyethylene (Artificial Tears) 1 drop PRN Q1HR PRN 12/30/21 21:30 Heparin Sodium (Porcine) (Heparin Sodium) 5,000 unit Q8HRS 01/03/22 14:00 01/05/22 06:06 5,000 UNIT Hydralazine HCl (Apresoline Inj) 10 mg PRN Q4HRS PRN 12/24/21 20:15 01/05/22 08:33 10 MG Hydrochlorothiazide (Hydrodiuril) 25 mg DAILY 12/25/21 10:00 12/31/21 14:47 DC Insulin Human Lispro (HumaLOG) 0-9 UNITS Q6HRS 12/25/21 00:00 01/05/22 06:06 4 UNITS Labetalol HCl (Normodyne Iv Push) 20 mg PRN Q2HR PRN 12/26/21 13:30 01/05/22 08:34 20 MG Lactobacillus Rhamnosus (Culturelle) 1 cap BID 12/30/21 21:00 01/02/22 07:33 DC Lansoprazole (Prevacid) 30 mg DAILY 01/06/22 07:30 Linezolid/Dextrose 300 ml @ 300 mls/hr Q12HR 01/02/22 21:00 01/05/22 08:11 300 MLS/HR Lorazepam (Ativan Inj) 2 mg PRN Q4HRS PRN 12/25/21 10:00 12/29/21 20:16 2 MG Losartan Potassium (Cozaar) 100 mg DAILY 12/25/21 10:00 12/31/21 14:46 DC Magnesium Sulfate 50 ml @ 25 mls/hr 1X ONCE 12/31/21 08:30 12/31/21 10:29 DC 12/31/21 09:06 25 MLS/HR Magnesium Sulfate/ Dextrose (Magnesium Sulfate PREMIX 1GM) 1 gm STK-MED ONCE 12/30/21 20:00 01/01/22 13:17 DC Midazolam HCl (Versed) 5 mg PRN 1X PRN 12/30/21 21:30 12/31/21 21:29 DC Montelukast Sodium (Singulair) 10 mg DAILY 12/25/21 10:00 01/05/22 08:08 10 MG Nicardipine HCl 50 mg/Sodium Chloride 250 ml @ 12.5 mls/hr CONT PRN 12/30/21 19:30 01/05/22 05:10 50 MLS/HR Nicotine (Nicoderm Cq 21mg) 1 patch DAILY 12/26/21 15:00 01/03/22 09:15 1 PATCH Nitroglycerin (Nitro-Bid Oint) 1 inch Q6HRS 12/26/21 18:00 01/05/22 06:03 1 INCH Olanzapine (ZyPREXA ZYDIS) 5 mg PRN BID PRN 12/24/21 20:15 12/24/21 22:49 5 MG Ondansetron HCl (Zofran) 4 mg PRN Q4HRS PRN 12/24/21 20:15 Pantoprazole Sodium (Protonix) 40 mg DAILYAC 12/25/21 11:30 12/29/21 12:07 DC Piperacillin Sod/ Tazobactam Sod (Zosyn Per Pharmacy) 1 each PRN DAILY PRN 12/30/21 04:30 Piperacillin Sod/ Tazobactam Sod 3.375 gm/Sodium Chloride 50 ml @ 100 mls/hr Q6HRS 12/30/21 06:00 01/05/22 05:59 100 MLS/HR Potassium Bicarbonate (Potassium Effervescent Tablet) 40 meq 1X ONCE 01/02/22 17:45 01/02/22 17:47 DC 01/02/22 17:54 20 MEQ Potassium Chloride/Water 100 ml @ 100 mls/hr Q1H 01/05/22 08:00 01/05/22 09:59 DC 01/05/22 08:35 100 MLS/HR Propofol 100 ml @ 1.917 mls/ hr CONT PRN 12/30/21 21:30 01/05/22 08:34 7.668 MLS/HR Sodium Bicarbonate 150 meq/Dextrose 1,150 ml @ 75 mls/hr [id number] 12/30/21 11:00 12/31/21 08:24 DC 12/31/21 03:04 75 MLS/HR Sodium Bicarbonate (Sodium Bicarb Adult 8.4% Syr) 50 meq STK-MED ONCE 12/30/21 20:00 01/01/22 13:17 DC Sodium Chloride 1,000 ml @ 75 mls/hr [id number] 12/31/21 08:30 01/01/22 10:39 DC 01/01/22 04:01 75 MLS/HR Succinylcholine Chloride (Anectine) 200 mg STK-MED ONCE 12/30/21 20:00 01/01/22 09:12 DC Vancomycin HCl (Vanco Per Pharmacy) 1 each PRN DAILY PRN 12/30/21 10:30 01/02/22 09:58 DC 01/01/22 12:42 1 EACH Vancomycin HCl (Vancomycin Trough Level) 1 each 1X ONCE 01/03/22 10:30 01/03/22 10:31 Cancel Vancomycin HCl 1.5 gm/Sodium Chloride 500 ml @ 250 mls/hr 1X ONCE 12/30/21 11:00 12/30/21 12:59 DC 12/30/21 10:51 250 MLS/HR Vancomycin HCl 1 gm/Sodium Chloride 250 ml @ 250 mls/hr Q36H 01/01/22 23:00 01/02/22 09:58 DC 01/01/22 22:52 250 MLS/HR Vecuronium [place] (Norcuron Bolus) 6 mg PRN 1X PRN 12/30/21 21:30 12/31/21 21:29 DC Vitamin D (Vitamin D3) 1,000 unit DAILY 12/25/21 10:00 01/05/22 08:08 1,000 UNIT Lab Laboratory Tests Test 01/04/22 12:16 01/04/22 17:50 01/04/22 23:40 01/05/22 05:18 Glucose (Fingerstick) 230 mg/dL (70-99) 180 mg/dL (70-99) 188 mg/dL (70-99) 195 mg/dL (70-99) Test 01/05/22 05:30 01/05/22 07:45 Sodium Level 139 mmol/L (136-145) Potassium Level 3.4 mmol/L (3.5-5.1) Chloride Level 102 mmol/L (98-107) Carbon Dioxide Level 27 mmol/L (21-32) Anion Gap 10 (6-14) Blood Urea Nitrogen 30 mg/dL (7-20) Creatinine 2.1 mg/dL (0.6-1.0) Estimated GFR (Cockcroft-Gault) 24.6 Glucose Level 188 mg/dL (70-99) Calcium Level 8.9 mg/dL (8.5-10.1) Phosphorus Level 4.5 mg/dL (2.6-4.7) Albumin 1.3 g/dL (3.4-5.0) O2 Saturation 96 % (92-99) Arterial Blood pH 7.42 (7.35-7.45) Arterial Blood pCO2 at Patient Temp 40 mmHg (35-46) Arterial Blood pO2 at Patient Temp 81 mmHg (75-108) Arterial Blood HCO3 25 mmol/L (21-28) Arterial Blood Base Excess 1 mmol/L (-3-3) FiO2 30 Results All relevant outside records, renal labs, imaging studies, telemetry/EKG's were reviewed. Justicifation of Admission Dx: Justifications for Admission: Justification of Admission Dx: Yes Stroke - Ischemic: Stroke-Ischemic VIKA WEST MD Jan 05, 2022 10:54
--- NOTE | 2022-01-05 11:37 | PDOC ---
[employer] PROGRESS NOTE Date of Service DOS: DATE: 01/05/22 TIME: 11:35 Chief Complaint Chief Complaint Expressive aphasia unilateral weakness secondary to 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 Acute respiratory failure requiring BiPAP support Concern for early sepsis Dehydration Metabolic acidosis Acute electrolyte derangement, hypernatremia and hyperchloremia-possible dehydration History hypertension History of diabetes diabetes History of Present Illness History of Present Illness 01/05/2022 Patient seen and examined in the ICU again She remains on the vent AC/16/400/30 percent with 5 of PEEP Has her new PEG feeds running at 30 cc an hour Sedated with fentanyl Still requiring Cardene drip 01/04/2022 Patient seen and examined in the ICU She is on the vent AC/16/400/30 percent with 5 of PEEP (satting 100% and has a pH of 7.44) Art line in place Sedated with propofol and fentanyl PEG feed running at 30 cc an hour On Cardene drip but I discussed with RN working to titrate that off and start per PEG Norvasc Chart reviewed She remains critically ill 01/03/2022 Patient seen and examined in the ICU She remains on the vent AC/16/400/30 percent with 5 of PEEP Discussed with RN, the patient's urine output is a low Currently sedated with propofol Has IV Zosyn and IV Zyvox NG running at 30 cc an hour Has Berumen to bedside drainage ABIs are in place Art line appears clean dry intact and functioning well Chart reviewed She remains critically ill 01/02/2022 Patient seen and examined in the ICU She got her PEG yesterday but then apparently aspirated and had to be intubated Vent settings as follows AC/16/400/30 5% with 5 of PEEP Sedated with propofol fentanyl Has IV Zosyn hanging D5 water also hanging Creatinine bumped up a little bit (I called the pharmacy working to stop the Vanco and start Zyvox) Chart reviewed Discussed with RN She is critically ill 01/01/2022 Patient seen and examined in the ICU She remains on the vent AC/16/400/30 5% with 5 of PEEP Art line in place Sedated with propofol and fentanyl Has half-normal saline hanging with Zosyn Berumen to bedside drainage Chart reviewed Discussed with RN 12/31 Patient evaluated examined at bedside. She required intubation overnight and is currently intubated and sedated. Patient was intubated after family decided on continuing full treatment measures. Blood pressure improved. When seen patient unresponsive no withdrawal to pain. Pupils do still have reflex. Continue current. Nephrology pulmonology following. 45 minutes critical care time 12/30/2021 Rapid response called last night for desaturations down to the 70s. Labs were obtained showing hypernatremia. Patient still unresponsive and placed on BiPAP. ABG showed 7.1 //14. Concern for aspiration, worsening of stroke, or dehydration. Nephrology and pulmonology consulted. Patient transferred to the ICU. Empiric IV antibiotics are started and blood cultures are obtained. D5 bicarb drip started. Patient's chart, labs, images were reviewed and discussed with RN 12/29/21 No acute events overnight. Patient seen examined bedside. Sleeping in bed and unable to be arousable with sternal rub or to voice. Patient unable to follow through with speech evaluation. Will need to consider TPN for nutrition. Medicaid application pending. Patient's chart, labs, images were reviewed and discussed with RN 12/28 Patient evaluated examined at bedside. She was sleeping in bed unable to get her to open her eyes even with sternal rub. Some withdrawal to pain in the right lower extremity none in right upper extremity. Unable to follow commands to see if she could hold her arm against gravity. Still having some trouble controlling blood pressure is still on Cardene drip for now. Will schedule Vasotec and try to start weaning off the Cardene drip. 12/27 Evaluated and examined at bedside. She was resting in bed not easily awoken and still cannot provide me really with any history given her aphasic state. She did have some withdrawal to pain in the right lower extremity still no movement and right upper. PT OT. Neuro following. Plan discussed bedside RN. 12/26 Evaluated and examined at bedside. Is a bit lethargic today difficulty staying awake this morning. MRI showing acute infarcts. Neurology continues to follow. Patient remains aphasic. Therapy modalities. Blood pressure control with IV until able to take oral Okay to transfer out of ICU to CVC if bed is needed Vitals/I&O Vitals/I&O: Vital Signs Date Time Temp Pulse Resp B/P (MAP) Pulse Ox O2 Delivery O2 Flow Rate FiO2 01/05/22 11:27 99 Ventilator 01/05/22 08:34 76 151/66 01/05/22 07:00 16 01/05/22 04:00 98.3 98.3 I & O 01/04/22 01/04/22 01/05/22 15:00 23:00 07:00 Intake Total 610 ml 1650 ml 1541 ml Output Total 415 ml 295 ml 250 ml Balance 195 ml 1355 ml 1291 ml Physical Exam General: Other (Sedated on the vent) Heart: Regular rate Lungs: Crackles Abdomen: Other (New PEG tube in place) Extremities: No clubbing Skin: No breakdown Labs Labs: Laboratory Tests Test 01/04/22 12:16 01/04/22 17:50 01/04/22 23:40 01/05/22 05:18 Glucose (Fingerstick) 230 mg/dL (70-99) 180 mg/dL (70-99) 188 mg/dL (70-99) 195 mg/dL (70-99) Test 01/05/22 05:30 01/05/22 07:45 Sodium Level 139 mmol/L (136-145) Potassium Level 3.4 mmol/L (3.5-5.1) Chloride Level 102 mmol/L (98-107) Carbon Dioxide Level 27 mmol/L (21-32) Anion Gap 10 (6-14) Blood Urea Nitrogen 30 mg/dL (7-20) Creatinine 2.1 mg/dL (0.6-1.0) Estimated GFR (Cockcroft-Gault) 24.6 Glucose Level 188 mg/dL (70-99) Calcium Level 8.9 mg/dL (8.5-10.1) Phosphorus Level 4.5 mg/dL (2.6-4.7) Albumin 1.3 g/dL (3.4-5.0) O2 Saturation 96 % (92-99) Arterial Blood pH 7.42 (7.35-7.45) Arterial Blood pCO2 at Patient Temp 40 mmHg (35-46) Arterial Blood pO2 at Patient Temp 81 mmHg (75-108) Arterial Blood HCO3 25 mmol/L (21-28) Arterial Blood Base Excess 1 mmol/L (-3-3) FiO2 30 Assessment and Plan Assessmemt and Plan Stroke (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) Respiratory failure New PEG Expressive aphasia unilateral weakness secondary to 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 Sepsis Dehydration Hyponatremia Hypokalemia Hypomagnesemia Metabolic acidosis Acute electrolyte derangement, hypernatremia and hyperchloremia-possible dehydration History hypertension History of diabetes diabetes Plan ICU monitoring Vent weaning Trying to wean off the Cardene drip Continue sedation with propofol fentanyl Monitor art line Maintain Berumen Hope to advance PEG feeds Zyvox and Zosyn Follow cultures Appreciate subspecialist input (nephrology gastroenterology neurology and pulmonary medicine) Trend labs Statins Aspirin DVT prophylaxis with [place] Full code Sliding-scale insulin Prognosis extremely guarded CC time 33 minutes Comment Review of Relevant I have reviewed the following items chino (where applicable) has been applied. Medications: Current Medications Medications (Trade) Dose Ordered Sig/Fabio Route PRN Reason Start Time Stop Time Status Last Admin Dose Admin Potassium Chloride/Water 100 ml @ 100 mls/hr Q1H IV 01/05/22 08:00 01/05/22 09:59 DC 01/05/22 08:35 Justifications for Admission TIA Indications Persistent neurologic signs?: Yes Justification for admission: There is persistence of patient's focal neurologic signs or symptoms or there is concern for recurrence of patient's neurological signs and symptoms. Severe hypertension?: Yes Justification for admission: There is concern for patient's severe hypertension of (>180/110mmHg--please indicate patient's BP here) that has not been controlled by ED treatment. Patient needs inpatient level of care for further evaluation and management. Other Justification JAGDISH ONEIL III DO Jan 05, 2022 11:37
[2022-01-05] MEDS ORDERED: FUROSEMIDE 40 MG/4 ML VIAL. IVP ONE (13:00)
--- NOTE | 2022-01-05 14:56 | NUR ---
SS following up with discharge planning. SS reviewed pt chart and discussed with pt RN. Pt is currently on the vent at 30%. Pt on IV Zosyn and IV Zyvox. Pt on Propofol, Fentanyl, and Cardene. Peg in place. Self pay. Med Assist following. Pt now DNR. Pt's spouse considering comfort measures. SS will continue to follow for discharge planning.
[2022-01-05] MEDS: ATORVASTATIN CALCIUM 40 MG TABLET. PO SCH (20:43)
[2022-01-06] VITALS (24 sets, daily range): BP systolic 123–162; BP diastolic 56–70
[2022-01-06] MEDS: NITROGLYCERIN OINT 1 GM PACKET. TP SCH ×4 (05:41→23:27)
[2022-01-06] MEDS: PIPERACILLIN/TAZOBACTAM 3.375 GM in IV NORMAL SALINE 50ML 50 ML IV SCH ×2 (05:41→12:13)
[2022-01-06] MEDS: PROPOFOL 100 ML IV PRN ×2 (05:41→20:32)
[2022-01-06] MEDS: HEPARIN for SUB-Q USE 5,000 UNIT/ML VIAL. SQ SCH ×3 (05:42→22:08)
[2022-01-06] MEDS: INSULIN LISPRO 300 UNITS/3 ML VIAL. SQ SCH ×4 (05:43→23:28)
--- NOTE | 2022-01-06 06:25 | PDOC ---
PULMONARY PROGRESS NOTES DATE: 01/06/22 TIME: 06:23 Subjective Sedated on prop fentanyl, assist-control ventilation, IV Cardene peep 5-fio2 30% off sedation not following commands Vitals Vital Signs Date Time Temp Pulse Resp B/P (MAP) Pulse Ox O2 Delivery O2 Flow Rate FiO2 01/06/22 06:00 63 16 132/67 98 Ventilator 01/06/22 04:00 97.8 97.8 Comments ros unable to obtain sedated on vent HEENT: Other (nc at orally intubated nose clear neck no lad no thyromegaly) Lungs: Crackles Cardiovascular: S1, S2 Abdomen: Soft Extremities: Other Skin: Warm, Dry Labs Laboratory Tests Test 01/04/22 08:15 01/04/22 12:16 01/04/22 17:50 01/04/22 23:40 O2 Saturation 96 % (92-99) Arterial Blood pH 7.44 (7.35-7.45) Arterial Blood pCO2 at Patient Temp 40 mmHg (35-46) Arterial Blood pO2 at Patient Temp 84 mmHg (75-108) Arterial Blood HCO3 26 mmol/L (21-28) Arterial Blood Base Excess 2 mmol/L (-3-3) FiO2 30 Glucose (Fingerstick) 230 mg/dL (70-99) 180 mg/dL (70-99) 188 mg/dL (70-99) Test 01/05/22 05:18 01/05/22 05:30 01/05/22 07:45 01/05/22 11:37 Glucose (Fingerstick) 195 mg/dL (70-99) 234 mg/dL (70-99) Sodium Level 139 mmol/L (136-145) Potassium Level 3.4 mmol/L (3.5-5.1) Chloride Level 102 mmol/L (98-107) Carbon Dioxide Level 27 mmol/L (21-32) Anion Gap 10 (6-14) Blood Urea Nitrogen 30 mg/dL (7-20) Creatinine 2.1 mg/dL (0.6-1.0) Estimated GFR (Cockcroft-Gault) 24.6 Glucose Level 188 mg/dL (70-99) Calcium Level 8.9 mg/dL (8.5-10.1) Phosphorus Level 4.5 mg/dL (2.6-4.7) Albumin 1.3 g/dL (3.4-5.0) O2 Saturation 96 % (92-99) Arterial Blood pH 7.42 (7.35-7.45) Arterial Blood pCO2 at Patient Temp 40 mmHg (35-46) Arterial Blood pO2 at Patient Temp 81 mmHg (75-108) Arterial Blood HCO3 25 mmol/L (21-28) Arterial Blood Base Excess 1 mmol/L (-3-3) FiO2 30 Test 01/05/22 18:22 01/05/22 23:56 01/06/22 05:39 Glucose (Fingerstick) 155 mg/dL (70-99) 186 mg/dL (70-99) 169 mg/dL (70-99) Laboratory Tests Test 01/05/22 07:45 01/05/22 11:37 01/05/22 18:01/05/22 23:56 O2 Saturation 96 % (92-99) Arterial Blood pH 7.42 (7.35-7.45) Arterial Blood pCO2 at Patient Temp 40 mmHg (35-46) Arterial Blood pO2 at Patient Temp 81 mmHg (75-108) Arterial Blood HCO3 25 mmol/L (21-28) Arterial Blood Base Excess 1 mmol/L (-3-3) FiO2 30 Glucose (Fingerstick) 234 mg/dL (70-99) 155 mg/dL (70-99) 186 mg/dL (70-99) Test 01/06/22 05:39 Glucose (Fingerstick) 169 mg/dL (70-99) Medications Active Scripts Medications Dose Route/Sig Max Daily Dose Days Date Category Dose Instructions Montelukast Sodium 10 Mg Tablet 1 Tab PO DAILY 12/24/21 Reported Stool Softener (Docusate Sodium) 50 Mg Capsule 50 Mg PO BID 06/02/19 Reported [place] 5-325 Tablet (Acetaminophen/Hydrocodone Bitart) 1 Each Tablet 1 Tab PO Q4HRS 06/02/19 Reported LAST DOSE GIVEN: Lantus Solostar (Insulin Glargine,Hum.rec.anlog) 100 Unit/1 Ml Insuln.pen 21 Unit SQ QHS 06/02/19 Reported Culturelle (Lactobacillus Rhamnosus Gg) 1 Each Capsule 1 Each PO DAILY 06/01/19 Reported Alive Once Daily Women 50 Plus (Mv-Mn/Folic Acid/Vit K/Pazk920) 1 Each Tablet 1 Each PO DAILY 06/01/19 Reported [place] 5-325 Tablet (Acetaminophen/Hydrocodone Bitart) 1 Each Tablet 1 Tab PO PRN Q6HRS PRN 06/01/19 Reported Tizanidine Hcl 4 Mg Tablet 2 Tab PO TID PRN 06/01/19 Reported Proair Hfa Inhaler (Albuterol Sulfate) 8.5 Gm Hfa.aer.ad 1 Puff INH PRN Q6HRS PRN 01/19/19 Reported Montelukast Sodium Tablet (Montelukast Sodium) 10 Mg Tablet 1 Tab PO DAILY 01/19/19 Reported Losartan-Hctz 100-25 Mg Tab (Losartan/Hydrochlorothiazide) 1 Each Tablet 1 Tab PO DAILY 01/19/19 Reported Protonix (Pantoprazole Sodium) 20 Mg Tablet. 1 Tab PO DAILY 01/19/19 Reported Vitamin D3 (Cholecalciferol (Vitamin D3)) 1,000 Unit Tablet 1 Tab PO DAILY 01/19/19 Reported Cetirizine Hcl 10 Mg Tablet 1 Tab PO DAILY 01/19/19 Reported Janumet 50-1,000 Mg Tablet (Sitagliptin Phos/Metformin Hcl) 1 Each Tablet 1 Tab PO BID 01/19/19 Reported Comments cxr reviewed ett ok b lat basilar atelectasis infilt Impression . Acute hypoxemic respiratory failure multifactorial metabolic encephalopathy Acute kidney injury, per nephrology Possible sepsis Hypomagnesemia hypokalemia Uncontrolled hypertension Severe metabolic acidosis CVA--positive MRI 12/25/2021, see MRI report COPD Thyroid disorder Status post PEG Plan . Updated 01/06 cont vent support setting reviewed elevate hob ABG cxr reviewed Continue IV Cardene Assist-control Status post PEG prognosis poor dr flower had a lengthy discussion with , patient has expressed in the past that she does not want to live in a persistent vegetative state, would not want trach, and long-term nonweanable unit. wishes to proceed with DNR Continue current support, will revisit the possibility of withdrawing care next week discussed w rn Updated 01/05 ABG noted PO2 of 81 Continue IV Cardene Assist-control Status post PEG I had a lengthy discussion with , patient has expressed in the past that she does not want to live in a persistent vegetative state, would not want trach, and long-term nonweanable unit. wishes to proceed with DNR Continue current support, will revisit the possibility of withdrawing care next week Updated 01/04 ABG noted pH is 7.44 PCO2 40 PO2 of 84 Continue IV Cardene Assist-control ventilation Unable to time treat sedation down May require trach Appreciated neurology input Monitor sodium, monitor creatinine CT abdomen no evidence of ischemia Continue empiric antibiotics Overall prognosis is poor Discussed with BROOKS BRADFORD MD Jan 06, 2022 06:25
[2022-01-06] MEDS: IPRATRPIUM/ALBUTEROL 0.5/2.5MG 3 ML NEBU. NEB SCH ×4 (07:59→20:00)
[2022-01-06 08:31] LABS: BASE EXCESS ABG -1 mmol/L (-3-3); HCO3 ABG 24 mmol/L (21-28); PCO2 ABG 39 mmHg (35-46); PO2 ABG 81 mmHg (75-108); SAT O2 ABG 96 % (92-99)
[2022-01-06 08:43] LABS: FIO2 ABG 30% AC 16 400 5
[2022-01-06] MEDS: CHLORHEXIDINE 0.12% 15 ML MOUTHWASH. MM SCH (09:00)
[2022-01-06] MEDS: ASPIRIN CHEWABLE 81 MG TABLET. PO SCH (09:15)
[2022-01-06] MEDS: LANSOPRAZOLE 30 MG TAB.RAP.DR FT SCH ×2 (09:18→09:20)
[2022-01-06] MEDS: MONTELUKAST SODIUM 10 MG TABLET. PO SCH (09:18)
[2022-01-06] MEDS: CETIRIZINE HCL 10 MG TABLET. PO SCH (09:19)
[2022-01-06] MEDS: CHOLECALCIFEROL (VITAMIN D3) 1,000 UNIT TABLET PO SCH (09:19)
[2022-01-06] MEDS: NICOTINE 21MG PATCH. TD SCH (09:19)
--- NOTE | 2022-01-06 11:35 | PDOC ---
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 Acute respiratory failure requiring BiPAP support Concern for early sepsis Dehydration Metabolic acidosis Acute electrolyte derangement, hypernatremia and hyperchloremia-possible dehydration History hypertension History of diabetes diabetes History of Present Illness History of Present Illness 01/06/2022 Patient seen and examined in the ICU She remains on the vent AC/16/400/30 percent with five of PEEP Has PEG feed running at 30 cc an hour Has Berumen to bedside drainage Zyvox hanging IV Sedated with propofol and fentanyl Has Cardene drip running Discussed with RN Chart reviewed She remains critically ill 01/05/2022 Patient seen and examined in the ICU again She remains on the vent AC/16/400/30 percent with 5 of PEEP Has her new PEG feeds running at 30 cc an hour Sedated with fentanyl Still requiring Cardene drip 01/04/2022 Patient seen and examined in the ICU She is on the vent AC/16/400/30 percent with 5 of PEEP (satting 100% and has a pH of 7.44) Art line in place Sedated with propofol and fentanyl PEG feed running at 30 cc an hour On Cardene drip but I discussed with RN working to titrate that off and start per PEG Norvasc Chart reviewed She remains critically ill 01/03/2022 Patient seen and examined in the ICU She remains on the vent AC/16/400/30 percent with 5 of PEEP Discussed with RN, the patient's urine output is a low Currently sedated with propofol Has IV Zosyn and IV Zyvox NG running at 30 cc an hour Has Berumen to bedside drainage ABIs are in place Art line appears clean dry intact and functioning well Chart reviewed She remains critically ill 01/02/2022 Patient seen and examined in the ICU She got her PEG yesterday but then apparently aspirated and had to be intubated Vent settings as follows AC/16/400/30 5% with 5 of PEEP Sedated with propofol fentanyl Has IV Zosyn hanging D5 water also hanging Creatinine bumped up a little bit (I called the pharmacy working to stop the Vanco and start Zyvox) Chart reviewed Discussed with RN She is critically ill 01/01/2022 Patient seen and examined in the ICU She remains on the vent AC/16/400/30 5% with 5 of PEEP Art line in place Sedated with propofol and fentanyl Has half-normal saline hanging with Zosyn Berumen to bedside drainage Chart reviewed Discussed with RN 12/31 Patient evaluated examined at bedside. She required intubation overnight and is currently intubated and sedated. Patient was intubated after family decided on continuing full treatment measures. Blood pressure improved. When seen patient unresponsive no withdrawal to pain. Pupils do still have reflex. Continue current. Nephrology pulmonology following. 45 minutes critical care time 12/30/2021 Rapid response called last night for desaturations down to the 70s. Labs were obtained showing hypernatremia. Patient still unresponsive and placed on BiPAP. ABG showed 7.1 . Concern for aspiration, worsening of stroke, or dehydration. Nephrology and pulmonology consulted. Patient transferred to the ICU. Empiric IV antibiotics are started and blood cultures are obtained. D5 bicarb drip started. Patient's chart, labs, images were reviewed and discussed with RN 12/29/21 No acute events overnight. Patient seen examined bedside. Sleeping in bed and unable to be arousable with sternal rub or to voice. Patient unable to follow through with speech evaluation. Will need to consider TPN for nutrition. Medicaid application pending. Patient's chart, labs, images were reviewed and discussed with RN 12/28 Patient evaluated examined at bedside. She was sleeping in bed unable to get her to open her eyes even with sternal rub. Some withdrawal to pain in the right lower extremity none in right upper extremity. Unable to follow commands to see if she could hold her arm against gravity. Still having some trouble controlling blood pressure is still on Cardene drip for now. Will schedule Vasotec and try to start weaning off the Cardene drip. 12/27 Evaluated and examined at bedside. She was resting in bed not easily awoken and still cannot provide me really with any history given her aphasic state. She did have some withdrawal to pain in the right lower extremity still no movement and right upper. PT OT. Neuro following. Plan discussed bedside RN. 12/26 Evaluated and examined at bedside. Is a bit lethargic today difficulty staying awake this morning. MRI showing acute infarcts. Neurology continues to follow. Patient remains aphasic. Therapy modalities. Blood pressure control with IV until able to take oral Okay to transfer out of ICU to CVC if bed is needed Vitals/I&O Vitals/I&O: Vital Signs Date Time Temp Pulse Resp B/P (MAP) Pulse Ox O2 Delivery O2 Flow Rate FiO2 01/06/22 10:00 82 16 162/70 98 Ventilator 01/06/22 09:28 15.0 01/06/22 08:00 98.0 98.0 I & O 01/05/22 01/05/22 01/06/22 15:00 23:00 07:00 Intake Total 260 ml 1378 ml 2163 ml Output Total 370 ml 725 ml 575 ml Balance -110 ml 653 ml 1588 ml Physical Exam General: Other (Sedated on the vent) Heart: Regular rate Lungs: Crackles Abdomen: Other (New PEG tube in place) Extremities: No clubbing Skin: No breakdown Labs Labs: Laboratory Tests Test 01/05/22 11:37 01/05/22 18:22 01/05/22 23:56 01/06/22 05:39 Glucose (Fingerstick) 234 mg/dL (70-99) 155 mg/dL (70-99) 186 mg/dL (70-99) 169 mg/dL (70-99) Test 01/06/22 08:00 O2 Saturation 96 % (92-99) Arterial Blood pH 7.41 (7.35-7.45) Arterial Blood pCO2 at Patient Temp 39 mmHg (35-46) Arterial Blood pO2 at Patient Temp 81 mmHg (75-108) Arterial Blood HCO3 24 mmol/L (21-28) Arterial Blood Base Excess -1 mmol/L (-3-3) FiO2 30% ac 16 400 5 Assessment and Plan Assessmemt and Plan Stroke (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) Respiratory failure New PEG Expressive aphasia unilateral weakness secondary to 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 Sepsis Dehydration Hyponatremia Hypokalemia Hypomagnesemia Metabolic acidosis Acute electrolyte derangement, hypernatremia and hyperchloremia-possible dehydration History hypertension History of diabetes diabetes Plan ICU monitoring Vent weaning Trying to wean off the Cardene drip Continue sedation with propofol fentanyl Monitor art line Maintain Berumen Hope to advance PEG feeds Zyvox and Zosyn Follow cultures Appreciate subspecialist input (nephrology gastroenterology neurology and pulmonary medicine) Trend labs Statins Aspirin DVT prophylaxis with [place] Full code Sliding-scale insulin Prognosis extremely guarded CC time 31 minutes Comment Review of Relevant I have reviewed the following items chino (where applicable) has been applied. Medications: Current Medications Medications (Trade) Dose Ordered Sig/Fabio Route PRN Reason Start Time Stop Time Status Last Admin Dose Admin Lansoprazole (Prevacid) 30 mg DAILY FT 01/06/22 07:30 01/06/22 09:20 Furosemide (Lasix) 80 mg 1X ONCE IVP 01/05/22 13:00 01/05/22 13:01 DC 01/05/22 14:26 Justifications for Admission TIA Indications Persistent neurologic signs?: Yes Justification for admission: There is persistence of patient's focal neurologic signs or symptoms or there is concern for recurrence of patient's neurological signs and symptoms. Severe hypertension?: Yes Justification for admission: There is concern for patient's severe hypertension of (>180/110mmHg--please indicate patient's BP here) that has not been controlled by ED treatment. Patient needs inpatient level of care for further evaluation and management. Other Justification JAGDISH ONEIL III DO Jan 06, 2022 11:35
[2022-01-06 18:59] LABS: ALBUMIN 1.1 g/dL (3.4-5.0); CALCIUM 8.5 mg/dL (8.5-10.1); CREATININE 2.3 mg/dL (0.6-1.0); GFR 22.2; PHOSPHORUS 4.8 mg/dL (2.6-4.7); POTASSIUM 3.4 mmol/L (3.5-5.1)
[2022-01-06] MEDS: ATORVASTATIN CALCIUM 40 MG TABLET. PO SCH (20:32)
[2022-01-07] VITALS (24 sets, daily range): BP systolic 130–160; BP diastolic 55–70
[2022-01-07] MEDS: NITROGLYCERIN OINT 1 GM PACKET. TP SCH ×4 (05:41→23:54)
[2022-01-07] MEDS: HEPARIN for SUB-Q USE 5,000 UNIT/ML VIAL. SQ SCH ×3 (05:42→21:15)
[2022-01-07] MEDS: INSULIN LISPRO 300 UNITS/3 ML VIAL. SQ SCH ×4 (05:42→23:55)
[2022-01-07 05:46] LABS: ALBUMIN 1.2 g/dL (3.4-5.0); CREATININE 2.2 mg/dL (0.6-1.0); GFR 23.3; PHOSPHORUS 4.9 mg/dL (2.6-4.7); POTASSIUM 3.5 mmol/L (3.5-5.1)
[2022-01-07] MEDS: PROPOFOL 100 ML IV PRN ×2 (05:47→18:01)
--- NOTE | 2022-01-07 06:24 | PDOC ---
PULMONARY PROGRESS NOTES DATE: 01/07/22 TIME: 06:23 Subjective Sedated on prop fentanyl, assist-control ventilation, IV Cardene peep 5-fio2 30% off sedation not following commands Vitals Vital Signs Date Time Temp Pulse Resp B/P (MAP) Pulse Ox O2 Delivery O2 Flow Rate FiO2 01/07/22 06:00 80 16 139/59 98 Ventilator 01/07/22 04:00 99.4 99.4 01/06/22 09:58 15.0 Comments ros unable to obtain sedated on vent HEENT: Other (nc at orally intubated nose clear neck no lad no thyromegaly) Lungs: Crackles Cardiovascular: S1, S2 Abdomen: Soft Extremities: Other Skin: Warm, Dry Labs Laboratory Tests Test 01/05/22 07:45 01/05/22 11:37 01/05/22 18:22 01/05/22 23:56 O2 Saturation 96 % (92-99) Arterial Blood pH 7.42 (7.35-7.45) Arterial Blood pCO2 at Patient Temp 40 mmHg (35-46) Arterial Blood pO2 at Patient Temp 81 mmHg (75-108) Arterial Blood HCO3 25 mmol/L (21-28) Arterial Blood Base Excess 1 mmol/L (-3-3) FiO2 30 Glucose (Fingerstick) 234 mg/dL (70-99) 155 mg/dL (70-99) 186 mg/dL (70-99) Test 01/06/22 05:39 01/06/22 08:00 01/06/22 12:08 01/06/22 18:14 Glucose (Fingerstick) 169 mg/dL (70-99) 209 mg/dL (70-99) 206 mg/dL (70-99) O2 Saturation 96 % (92-99) Arterial Blood pH 7.41 (7.35-7.45) Arterial Blood pCO2 at Patient Temp 39 mmHg (35-46) Arterial Blood pO2 at Patient Temp 81 mmHg (75-108) Arterial Blood HCO3 24 mmol/L (21-28) Arterial Blood Base Excess -1 mmol/L (-3-3) FiO2 30% ac 16 400 5 Test 01/06/22 18:35 01/06/22 23:27 01/07/22 03:52 01/07/22 05:39 Sodium Level 137 mmol/L (136-145) 138 mmol/L (136-145) Potassium Level 3.4 mmol/L (3.5-5.1) 3.5 mmol/L (3.5-5.1) Chloride Level 101 mmol/L (98-107) 101 mmol/L (98-107) Carbon Dioxide Level 27 mmol/L (21-32) 25 mmol/L (21-32) Anion Gap 9 (6-14) 12 (6-14) Blood Urea Nitrogen 32 mg/dL (7-20) 33 mg/dL (7-20) Creatinine 2.3 mg/dL (0.6-1.0) 2.2 mg/dL (0.6-1.0) Estimated GFR (Cockcroft-Gault) 22.2 23.3 Glucose Level 217 mg/dL (70-99) 189 mg/dL (70-99) Calcium Level 8.5 mg/dL (8.5-10.1) 9.0 mg/dL (8.5-10.1) Phosphorus Level 4.8 mg/dL (2.6-4.7) 4.9 mg/dL (2.6-4.7) Albumin 1.1 g/dL (3.4-5.0) 1.2 g/dL (3.4-5.0) Glucose (Fingerstick) 199 mg/dL (70-99) 172 mg/dL (70-99) Laboratory Tests Test 01/06/22 08:00 01/06/22 12:08 01/06/22 18:14 01/06/22 18:35 O2 Saturation 96 % (92-99) Arterial Blood pH 7.41 (7.35-7.45) Arterial Blood pCO2 at Patient Temp 39 mmHg (35-46) Arterial Blood pO2 at Patient Temp 81 mmHg (75-108) Arterial Blood HCO3 24 mmol/L (21-28) Arterial Blood Base Excess -1 mmol/L (-3-3) FiO2 30% ac 16 400 5 Glucose (Fingerstick) 209 mg/dL (70-99) 206 mg/dL (70-99) Sodium Level 137 mmol/L (136-145) Potassium Level 3.4 mmol/L (3.5-5.1) Chloride Level 101 mmol/L (98-107) Carbon Dioxide Level 27 mmol/L (21-32) Anion Gap 9 (6-14) Blood Urea Nitrogen 32 mg/dL (7-20) Creatinine 2.3 mg/dL (0.6-1.0) Estimated GFR (Cockcroft-Gault) 22.2 Glucose Level 217 mg/dL (70-99) Calcium Level 8.5 mg/dL (8.5-10.1) Phosphorus Level 4.8 mg/dL (2.6-4.7) Albumin 1.1 g/dL (3.4-5.0) Test 01/06/22 23:27 01/07/22 03:52 01/07/22 05:39 Glucose (Fingerstick) 199 mg/dL (70-99) 172 mg/dL (70-99) Sodium Level 138 mmol/L (136-145) Potassium Level 3.5 mmol/L (3.5-5.1) Chloride Level 101 mmol/L (98-107) Carbon Dioxide Level 25 mmol/L (21-32) Anion Gap 12 (6-14) Blood Urea Nitrogen 33 mg/dL (7-20) Creatinine 2.2 mg/dL (0.6-1.0) Estimated GFR (Cockcroft-Gault) 23.3 Glucose Level 189 mg/dL (70-99) Calcium Level 9.0 mg/dL (8.5-10.1) Phosphorus Level 4.9 mg/dL (2.6-4.7) Albumin 1.2 g/dL (3.4-5.0) Medications Active Scripts Medications Dose Route/Sig Max Daily Dose Days Date Category Dose Instructions Montelukast Sodium 10 Mg Tablet 1 Tab PO DAILY 12/24/21 Reported Stool Softener (Docusate Sodium) 50 Mg Capsule 50 Mg PO BID 06/02/19 Reported [place] 5-325 Tablet (Acetaminophen/Hydrocodone Bitart) 1 Each Tablet 1 Tab PO Q4HRS 06/02/19 Reported LAST DOSE GIVEN: Lantus Solostar (Insulin Glargine,Hum.rec.anlog) 100 Unit/1 Ml Insuln.pen 21 Unit SQ QHS 06/02/19 Reported Culturelle (Lactobacillus Rhamnosus Gg) 1 Each Capsule 1 Each PO DAILY 06/01/19 Reported Alive Once Daily Women 50 Plus (Mv-Mn/Folic Acid/Vit K/Dodg243) 1 Each Tablet 1 Each PO DAILY 06/01/19 Reported [place] 5-325 Tablet (Acetaminophen/Hydrocodone Bitart) 1 Each Tablet 1 Tab PO PRN Q6HRS PRN 06/01/19 Reported Tizanidine Hcl 4 Mg Tablet 2 Tab PO TID PRN 06/01/19 Reported Proair Hfa Inhaler (Albuterol Sulfate) 8.5 Gm Hfa.aer.ad 1 Puff INH PRN Q6HRS PRN 01/19/19 Reported Montelukast Sodium Tablet (Montelukast Sodium) 10 Mg Tablet 1 Tab PO DAILY 01/19/19 Reported Losartan-Hctz 100-25 Mg Tab (Losartan/Hydrochlorothiazide) 1 Each Tablet 1 Tab PO DAILY 01/19/19 Reported Protonix (Pantoprazole Sodium) 20 Mg Tablet. 1 Tab PO DAILY 01/19/19 Reported Vitamin D3 (Cholecalciferol (Vitamin D3)) 1,000 Unit Tablet 1 Tab PO DAILY 01/19/19 Reported Cetirizine Hcl 10 Mg Tablet 1 Tab PO DAILY 01/19/19 Reported Janumet 50-1,000 Mg Tablet (Sitagliptin Phos/Metformin Hcl) 1 Each Tablet 1 Tab PO BID 01/19/19 Reported Comments cxr reviewed ett ok b lat basilar atelectasis infilt Impression . Acute hypoxemic respiratory failure multifactorial metabolic encephalopathy Acute kidney injury, per nephrology Possible sepsis Hypomagnesemia hypokalemia Uncontrolled hypertension Severe metabolic acidosis CVA--positive MRI 12/25/2021, see MRI report COPD Thyroid disorder Status post PEG Plan . Updated 01/07 cont vent support setting reviewed not ready for sbt elevate hob ABG cxr reviewed Continue IV Cardene Assist-control Status post PEG prognosis poor DNR Continue current support, will revisit the possibility of withdrawing care next week discussed w rn Updated 01/06 cont vent support setting reviewed elevate hob ABG cxr reviewed Continue IV Cardene Assist-control Status post PEG prognosis poor dr flower had a lengthy discussion with , patient has expressed in the past that she does not want to live in a persistent vegetative state, would not want trach, and long-term nonweanable unit. wishes to proceed with DNR Continue current support, will revisit the possibility of withdrawing care next week discussed w rn Updated 01/05 ABG noted PO2 of 81 Continue IV Cardene Assist-control Status post PEG I had a lengthy discussion with , patient has expressed in the past that she does not want to live in a persistent vegetative state, would not want trach, and long-term nonweanable unit. wishes to proceed with DNR Continue current support, will revisit the possibility of withdrawing care next week Updated 01/04 ABG noted pH is 7.44 PCO2 40 PO2 of 84 Continue IV Cardene Assist-control ventilation Unable to time treat sedation down May require trach Appreciated neurology input Monitor sodium, monitor creatinine CT abdomen no evidence of ischemia Continue empiric antibiotics Overall prognosis is poor Discussed with BROOKS BRADFORD MD Jan 07, 2022 06:24
[2022-01-07] MEDS: IPRATRPIUM/ALBUTEROL 0.5/2.5MG 3 ML NEBU. NEB SCH ×4 (07:36→20:00)
[2022-01-07] MEDS: CETIRIZINE HCL 10 MG TABLET. PO SCH (07:46)
[2022-01-07 07:47] LABS: BASE EXCESS ABG 1 mmol/L (-3-3); HCO3 ABG 26 mmol/L (21-28); PCO2 ABG 43 mmHg (35-46); PO2 ABG 76 mmHg (75-108); SAT O2 ABG 95 % (92-99)
[2022-01-07] MEDS: ASPIRIN CHEWABLE 81 MG TABLET. PO SCH (07:47)
[2022-01-07] MEDS: LANSOPRAZOLE 30 MG TAB.RAP.DR FT SCH (07:47)
[2022-01-07] MEDS: CHOLECALCIFEROL (VITAMIN D3) 1,000 UNIT TABLET PO SCH (07:47)
[2022-01-07] MEDS: NICOTINE 21MG PATCH. TD SCH (07:48)
[2022-01-07] MEDS: MONTELUKAST SODIUM 10 MG TABLET. PO SCH (07:52)
[2022-01-07 08:26] LABS: FIO2 ABG 30% AC 16 400 5
--- NOTE | 2022-01-07 12:49 | PDOC ---
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 Acute respiratory failure requiring BiPAP support Concern for early sepsis Dehydration Metabolic acidosis Acute electrolyte derangement, hypernatremia and hyperchloremia-possible dehydration History hypertension History of diabetes diabetes History of Present Illness History of Present Illness 01/07/2020 Patient seen and examined in the ICU She remains on the ventilator AC/16/400/30 percent with 5 of PEEP Berumen to bedside drainage Art line in place with a pressure 149/61 PEG feeds running She is sedated with propofol fentanyl Also has a Cardene drip running She remains critically ill Discussed with RN Chart reviewed 01/06/2022 Patient seen and examined in the ICU She remains on the vent AC/16/400/30 percent with five of PEEP Has PEG feed running at 30 cc an hour Has Berumen to bedside drainage Zyvox hanging IV Sedated with propofol and fentanyl Has Cardene drip running Discussed with RN Chart reviewed She remains critically ill 01/05/2022 Patient seen and examined in the ICU again She remains on the vent AC/16/400/30 percent with 5 of PEEP Has her new PEG feeds running at 30 cc an hour Sedated with fentanyl Still requiring Cardene drip 01/04/2022 Patient seen and examined in the ICU She is on the vent AC/16/400/30 percent with 5 of PEEP (satting 100% and has a pH of 7.44) Art line in place Sedated with propofol and fentanyl PEG feed running at 30 cc an hour On Cardene drip but I discussed with RN working to titrate that off and start per PEG Norvasc Chart reviewed She remains critically ill 01/03/2022 Patient seen and examined in the ICU She remains on the vent AC/16/400/30 percent with 5 of PEEP Discussed with RN, the patient's urine output is a low Currently sedated with propofol Has IV Zosyn and IV Zyvox NG running at 30 cc an hour Has Berumen to bedside drainage ABIs are in place Art line appears clean dry intact and functioning well Chart reviewed She remains critically ill 01/02/2022 Patient seen and examined in the ICU She got her PEG yesterday but then apparently aspirated and had to be intubated Vent settings as follows AC/16/400/30 5% with 5 of PEEP Sedated with propofol fentanyl Has IV Zosyn hanging D5 water also hanging Creatinine bumped up a little bit (I called the pharmacy working to stop the Vanco and start Zyvox) Chart reviewed Discussed with RN She is critically ill 01/01/2022 Patient seen and examined in the ICU She remains on the vent AC/16/400/30 5% with 5 of PEEP Art line in place Sedated with propofol and fentanyl Has half-normal saline hanging with Zosyn Berumen to bedside drainage Chart reviewed Discussed with RN 12/31 Patient evaluated examined at bedside. She required intubation overnight and is currently intubated and sedated. Patient was intubated after family decided on continuing full treatment measures. Blood pressure improved. When seen patient unresponsive no withdrawal to pain. Pupils do still have reflex. Continue current. Nephrology pulmonology following. 45 minutes critical care time 12/30/2021 Rapid response called last night for desaturations down to the 70s. Labs were obtained showing hypernatremia. Patient still unresponsive and placed on BiPAP. ABG showed 7.1 //. Concern for aspiration, worsening of stroke, or dehydration. Nephrology and pulmonology consulted. Patient transferred to the ICU. Empiric IV antibiotics are started and blood cultures are obtained. D5 bicarb drip started. Patient's chart, labs, images were reviewed and discussed with RN 12/29/21 No acute events overnight. Patient seen examined bedside. Sleeping in bed and unable to be arousable with sternal rub or to voice. Patient unable to follow through with speech evaluation. Will need to consider TPN for nutrition. Medicaid application pending. Patient's chart, labs, images were reviewed and discussed with RN 12/28 Patient evaluated examined at bedside. She was sleeping in bed unable to get her to open her eyes even with sternal rub. Some withdrawal to pain in the right lower extremity none in right upper extremity. Unable to follow commands to see if she could hold her arm against gravity. Still having some trouble controlling blood pressure is still on Cardene drip for now. Will schedule Vasotec and try to start weaning off the Cardene drip. 12/27 Evaluated and examined at bedside. She was resting in bed not easily awoken and still cannot provide me really with any history given her aphasic state. She did have some withdrawal to pain in the right lower extremity still no movement and right upper. PT OT. Neuro following. Plan discussed bedside RN. 2/8 Evaluated and examined at bedside. Is a bit lethargic today difficulty staying awake this morning. MRI showing acute infarcts. Neurology continues to follow. Patient remains aphasic. Therapy modalities. Blood pressure control with IV until able to take oral Okay to transfer out of ICU to CVC if bed is needed Vitals/I&O Vitals/I&O: Vital Signs Date Time Temp Pulse Resp B/P (MAP) Pulse Ox O2 Delivery O2 Flow Rate FiO2 01/07/22 11:26 100 Ventilator 01/07/22 11:00 100 16 152/64 01/07/22 08:00 98.7 98.7 01/07/22 07:54 15.0 I & O 01/06/22 01/06/22 01/07/22 15:00 23:00 07:00 Intake Total 610 ml 1363 ml 1640 ml Output Total 350 ml 235 ml 275 ml Balance 260 ml 1128 ml 1365 ml Physical Exam General: Other (Sedated on the vent) Heart: Regular rate Lungs: Crackles Abdomen: Other (New PEG tube in place) Extremities: No clubbing Skin: No breakdown Labs Labs: Laboratory Tests Test 01/06/22 18:14 01/06/22 18:35 01/06/22 23:27 01/07/22 03:52 Glucose (Fingerstick) 206 mg/dL (70-99) 199 mg/dL (70-99) Sodium Level 137 mmol/L (136-145) 138 mmol/L (136-145) Potassium Level 3.4 mmol/L (3.5-5.1) 3.5 mmol/L (3.5-5.1) Chloride Level 101 mmol/L (98-107) 101 mmol/L (98-107) Carbon Dioxide Level 27 mmol/L (21-32) 25 mmol/L (21-32) Anion Gap 9 (6-14) 12 (6-14) Blood Urea Nitrogen 32 mg/dL (7-20) 33 mg/dL (7-20) Creatinine 2.3 mg/dL (0.6-1.0) 2.2 mg/dL (0.6-1.0) Estimated GFR (Cockcroft-Gault) 22.2 23.3 Glucose Level 217 mg/dL (70-99) 189 mg/dL (70-99) Calcium Level 8.5 mg/dL (8.5-10.1) 9.0 mg/dL (8.5-10.1) Phosphorus Level 4.8 mg/dL (2.6-4.7) 4.9 mg/dL (2.6-4.7) Albumin 1.1 g/dL (3.4-5.0) 1.2 g/dL (3.4-5.0) Test 01/07/22 05:39 01/07/22 07:35 01/07/22 12:03 Glucose (Fingerstick) 172 mg/dL (70-99) 146 mg/dL (70-99) O2 Saturation 95 % (92-99) Arterial Blood pH 7.39 (7.35-7.45) Arterial Blood pCO2 at Patient Temp 43 mmHg (35-46) Arterial Blood pO2 at Patient Temp 76 mmHg (75-108) Arterial Blood HCO3 26 mmol/L (21-28) Arterial Blood Base Excess 1 mmol/L (-3-3) FiO2 30% ac 16 400 5 Assessment and Plan Assessmemt and Plan Stroke (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) Respiratory failure New PEG Expressive aphasia unilateral weakness secondary to 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 Resolving sepsis Dehydration Hyponatremia Hypokalemia Hypomagnesemia Metabolic acidosis Acute electrolyte derangement, hypernatremia and hyperchloremia-possible dehydration History hypertension History of diabetes diabetes Plan ICU monitoring Vent weaning Still trying to wean off the Cardene drip Continue sedation with propofol fentanyl Monitor art line Maintain Berumen Continue PEG feeds Follow cultures Appreciate subspecialist input (nephrology gastroenterology neurology and pulmonary medicine) Trend labs Statins Aspirin DVT prophylaxis with Tacos Full code Sliding-scale insulin Prognosis extremely guarded CC time 32 minutes Comment Review of Relevant I have reviewed the following items chino (where applicable) has been applied. Justifications for Admission TIA Indications Persistent neurologic signs?: Yes Justification for admission: There is persistence of patient's focal neurologic signs or symptoms or there is concern for recurrence of patient's neurological signs and symptoms. Severe hypertension?: Yes Justification for admission: There is concern for patient's severe hypertension of (>180/110mmHg--please indicate patient's BP here) that has not been controlled by ED treatment. Patient needs inpatient level of care for further evaluation and management. Other Justification JAGDISH ONEIL III DO Jan 07, 2022 12:49
[2022-01-07] MEDS: ATORVASTATIN CALCIUM 40 MG TABLET. PO SCH (21:15)
[2022-01-08] VITALS (28 sets, daily range): BP systolic 106–190; BP diastolic 50–83
[2022-01-08] MEDS: PROPOFOL 100 ML IV PRN ×3 (03:50→18:03)
[2022-01-08] MEDS: HEPARIN for SUB-Q USE 5,000 UNIT/ML VIAL. SQ SCH ×3 (05:35→22:06)
[2022-01-08] MEDS: NITROGLYCERIN OINT 1 GM PACKET. TP SCH ×3 (05:35→18:02)
[2022-01-08] MEDS: INSULIN LISPRO 300 UNITS/3 ML VIAL. SQ SCH ×3 (05:36→18:03)
[2022-01-08 05:48] LABS: ALBUMIN 1.3 g/dL (3.4-5.0); CALCIUM 8.7 mg/dL (8.5-10.1); CREATININE 2.1 mg/dL (0.6-1.0); GFR 24.6; PHOSPHORUS 5.2 mg/dL (2.6-4.7); POTASSIUM 3.8 mmol/L (3.5-5.1)
[2022-01-08] MEDS: IPRATRPIUM/ALBUTEROL 0.5/2.5MG 3 ML NEBU. NEB SCH ×4 (07:49→20:20)
[2022-01-08] MEDS: CETIRIZINE HCL 10 MG TABLET. PO SCH (08:06)
[2022-01-08] MEDS: NICOTINE 21MG PATCH. TD SCH (08:07)
[2022-01-08] MEDS: MONTELUKAST SODIUM 10 MG TABLET. PO SCH (08:07)
[2022-01-08] MEDS: ASPIRIN CHEWABLE 81 MG TABLET. PO SCH (08:07)
[2022-01-08] MEDS: CHOLECALCIFEROL (VITAMIN D3) 1,000 UNIT TABLET PO SCH (08:07)
[2022-01-08] MEDS: LANSOPRAZOLE 30 MG TAB.RAP.DR FT SCH (08:07)
[2022-01-08 08:08] LABS: BASE EXCESS ABG -1 mmol/L (-3-3); HCO3 ABG 23 mmol/L (21-28); PCO2 ABG 37 mmHg (35-46); PO2 ABG 68 mmHg (75-108); SAT O2 ABG 93 % (92-99)
[2022-01-08 08:10] LABS: FIO2 ABG 30
--- NOTE | 2022-01-08 08:59 | PDOC ---
PULMONARY PROGRESS NOTES DATE: 01/08/22 TIME: 08:58 Subjective No overnight events patient currently on 30% FiO2 5 of PEEP Sedated Vitals Vital Signs Date Time Temp Pulse Resp B/P (MAP) Pulse Ox O2 Delivery O2 Flow Rate FiO2 01/08/22 08:07 95 166/63 01/08/22 07:45 96 Ventilator 01/08/22 07:00 16 01/08/22 04:00 98.1 98.1 01/07/22 08:24 15.0 Comments ros unable to obtain sedated on vent HEENT: Other (nc at orally intubated nose clear neck no lad no thyromegaly) Lungs: Crackles Cardiovascular: S1, S2 Abdomen: Soft Extremities: Other Skin: Warm, Dry Labs Laboratory Tests Test 01/06/22 12:08 01/06/22 18:14 01/06/22 18:35 01/06/22 23:27 Glucose (Fingerstick) 209 mg/dL (70-99) 206 mg/dL (70-99) 199 mg/dL (70-99) Sodium Level 137 mmol/L (136-145) Potassium Level 3.4 mmol/L (3.5-5.1) Chloride Level 101 mmol/L (98-107) Carbon Dioxide Level 27 mmol/L (21-32) Anion Gap 9 (6-14) Blood Urea Nitrogen 32 mg/dL (7-20) Creatinine 2.3 mg/dL (0.6-1.0) Estimated GFR (Cockcroft-Gault) 22.2 Glucose Level 217 mg/dL (70-99) Calcium Level 8.5 mg/dL (8.5-10.1) Phosphorus Level 4.8 mg/dL (2.6-4.7) Albumin 1.1 g/dL (3.4-5.0) Test 01/07/22 03:52 01/07/22 05:39 01/07/22 07:35 01/07/22 12:03 Sodium Level 138 mmol/L (136-145) Potassium Level 3.5 mmol/L (3.5-5.1) Chloride Level 101 mmol/L (98-107) Carbon Dioxide Level 25 mmol/L (21-32) Anion Gap 12 (6-14) Blood Urea Nitrogen 33 mg/dL (7-20) Creatinine 2.2 mg/dL (0.6-1.0) Estimated GFR (Cockcroft-Gault) 23.3 Glucose Level 189 mg/dL (70-99) Calcium Level 9.0 mg/dL (8.5-10.1) Phosphorus Level 4.9 mg/dL (2.6-4.7) Albumin 1.2 g/dL (3.4-5.0) Glucose (Fingerstick) 172 mg/dL (70-99) 146 mg/dL (70-99) O2 Saturation 95 % (92-99) Arterial Blood pH 7.39 (7.35-7.45) Arterial Blood pCO2 at Patient Temp 43 mmHg (35-46) Arterial Blood pO2 at Patient Temp 76 mmHg (75-108) Arterial Blood HCO3 26 mmol/L (21-28) Arterial Blood Base Excess 1 mmol/L (-3-3) FiO2 30% ac 16 400 5 Test 01/07/22 14:23 01/07/22 23:53 01/08/22 05:25 01/08/22 05:26 Glucose (Fingerstick) 87 mg/dL (70-99) 185 mg/dL (70-99) 165 mg/dL (70-99) Sodium Level 137 mmol/L (136-145) Potassium Level 3.8 mmol/L (3.5-5.1) Chloride Level 102 mmol/L (98-107) Carbon Dioxide Level 24 mmol/L (21-32) Anion Gap 11 (6-14) Blood Urea Nitrogen 35 mg/dL (7-20) Creatinine 2.1 mg/dL (0.6-1.0) Estimated GFR (Cockcroft-Gault) 24.6 Glucose Level 181 mg/dL (70-99) Calcium Level 8.7 mg/dL (8.5-10.1) Phosphorus Level 5.2 mg/dL (2.6-4.7) Albumin 1.3 g/dL (3.4-5.0) Test 01/08/22 07:45 O2 Saturation 93 % (92-99) Arterial Blood pH 7.41 (7.35-7.45) Arterial Blood pCO2 at Patient Temp 37 mmHg (35-46) Arterial Blood pO2 at Patient Temp 68 mmHg (75-108) Arterial Blood HCO3 23 mmol/L (21-28) Arterial Blood Base Excess -1 mmol/L (-3-3) FiO2 30 Laboratory Tests Test 01/07/22 12:03 01/07/22 14:23 01/07/22 23:53 01/08/22 05:25 Glucose (Fingerstick) 146 mg/dL (70-99) 87 mg/dL (70-99) 185 mg/dL (70-99) Sodium Level 137 mmol/L (136-145) Potassium Level 3.8 mmol/L (3.5-5.1) Chloride Level 102 mmol/L (98-107) Carbon Dioxide Level 24 mmol/L (21-32) Anion Gap 11 (6-14) Blood Urea Nitrogen 35 mg/dL (7-20) Creatinine 2.1 mg/dL (0.6-1.0) Estimated GFR (Cockcroft-Gault) 24.6 Glucose Level 181 mg/dL (70-99) Calcium Level 8.7 mg/dL (8.5-10.1) Phosphorus Level 5.2 mg/dL (2.6-4.7) Albumin 1.3 g/dL (3.4-5.0) Test 01/08/22 05:26 01/08/22 07:45 Glucose (Fingerstick) 165 mg/dL (70-99) O2 Saturation 93 % (92-99) Arterial Blood pH 7.41 (7.35-7.45) Arterial Blood pCO2 at Patient Temp 37 mmHg (35-46) Arterial Blood pO2 at Patient Temp 68 mmHg (75-108) Arterial Blood HCO3 23 mmol/L (21-28) Arterial Blood Base Excess -1 mmol/L (-3-3) FiO2 30 Medications Active Scripts Medications Dose Route/Sig Max Daily Dose Days Date Category Dose Instructions Montelukast Sodium 10 Mg Tablet 1 Tab PO DAILY 12/24/21 Reported Stool Softener (Docusate Sodium) 50 Mg Capsule 50 Mg PO BID 06/02/19 Reported Jackson 5-325 Tablet (Acetaminophen/Hydrocodone Bitart) 1 Each Tablet 1 Tab PO Q4HRS 06/02/19 Reported LAST DOSE GIVEN: Lantus Solostar (Insulin Glargine,Hum.rec.anlog) 100 Unit/1 Ml Insuln.pen 21 Unit SQ QHS 06/02/19 Reported Culturelle (Lactobacillus Rhamnosus Gg) 1 Each Capsule 1 Each PO DAILY 06/01/19 Reported Alive Once Daily Women 50 Plus (Mv-Mn/Folic Acid/Vit K/Rqni069) 1 Each Tablet 1 Each PO DAILY 06/01/19 Reported Jackson 5-325 Tablet (Acetaminophen/Hydrocodone Bitart) 1 Each Tablet 1 Tab PO PRN Q6HRS PRN 06/01/19 Reported Tizanidine Hcl 4 Mg Tablet 2 Tab PO TID PRN 06/01/19 Reported Proair Hfa Inhaler (Albuterol Sulfate) 8.5 Gm Hfa.aer.ad 1 Puff INH PRN Q6HRS PRN 01/19/19 Reported Montelukast Sodium Tablet (Montelukast Sodium) 10 Mg Tablet 1 Tab PO DAILY 01/19/19 Reported Losartan-Hctz 100-25 Mg Tab (Losartan/Hydrochlorothiazide) 1 Each Tablet 1 Tab PO DAILY 01/19/19 Reported Protonix (Pantoprazole Sodium) 20 Mg Tablet.dr 1 Tab PO DAILY 01/19/19 Reported Vitamin D3 (Cholecalciferol (Vitamin D3)) 1,000 Unit Tablet 1 Tab PO DAILY 01/19/19 Reported Cetirizine Hcl 10 Mg Tablet 1 Tab PO DAILY 01/19/19 Reported Janumet 50-1,000 Mg Tablet (Sitagliptin Phos/Metformin Hcl) 1 Each Tablet 1 Tab PO BID 01/19/19 Reported Comments cxr reviewed ett ok b lat basilar atelectasis infilt Impression . Acute hypoxemic respiratory failure multifactorial metabolic encephalopathy Acute kidney injury, per nephrology Possible sepsis Hypomagnesemia hypokalemia Uncontrolled hypertension Severe metabolic acidosis CVA--positive MRI 12/25/2021, see MRI report COPD Thyroid disorder Status post PEG Plan . Updated 01/08 Continue current support We will have further discussion with family, I recommend withdrawal of care and allow natural Updated 01/07 cont vent support setting reviewed not ready for sbt elevate hob ABG cxr reviewed Continue IV Cardene Assist-control Status post PEG prognosis poor DNR Continue current support, will revisit the possibility of withdrawing care next week discussed w rn Updated 01/06 cont vent support setting reviewed elevate hob ABG cxr reviewed Continue IV Cardene Assist-control Status post PEG prognosis poor dr flower had a lengthy discussion with , patient has expressed in the past that she does not want to live in a persistent vegetative state, would not want trach, and long-term nonweanable unit. wishes to proceed with DNR VAIBHAV PARIKH MD Jan 08, 2022 08:59
--- NOTE | 2022-01-08 09:08 | PDOC ---
DATE OF SERVICE DATE: 01/08/22 TIME: 09:05 SUBJECTIVE ROS Remains Intubated , stable OBJECTIVE Vital Signs Vital Signs Date Time Temp Pulse Resp B/P (MAP) Pulse Ox O2 Delivery O2 Flow Rate FiO2 01/08/22 08:07 95 166/63 01/08/22 07:45 96 Ventilator 01/08/22 07:00 16 01/08/22 04:00 98.1 98.1 01/07/22 08:24 15.0 I & 0 Intake and Output 01/08/22 07:00 Intake Total 3068 ml Output Total 1040 ml Balance 2028 ml IV Total 900 ml Tube Feeding 1478 ml Other 690 ml Output Urine Total 1040 ml PHYSICAL EXAM Physical Exam General Appearance: Intubated HEEN ETT + Skin: warm, No rash Respiratory: bilateral CTA ant Heart: S1S2 Abdomen: soft, bowel sounds present Genitourinary: Berumen Extremities: No LE edema , No cyanosis Neurology: sedated DIAGNOSIS/ASSESSMENT Assessment & Plan MICHELET - Stable renal function, Non Oliguric, Lasix IV prn . supportive care, maintain fluid balance, avoid Nephrotoxins HyperNatremia - Resolved HypoKalemia - Normal K Anemia- Hgb trended down, last H &H 01/01 defer to primary ? CKD stage 3 Creat 2,1 in 2019 x 1 , No interval labs CVA HTN- stable, antihypertensives DM II- primary managing Patient is DNR COMMENT/RELEVANT DATA Meds Current Medications Medications (Trade) Dose Ordered Sig/Fabio Start Time Stop Time Status Last Admin Dose Admin Acetaminophen (Tylenol Supp) 650 mg PRN Q6HRS PRN 12/24/21 20:15 Acetaminophen (Tylenol) 650 mg PRN Q6HRS PRN 12/24/21 20:15 12/24/21 20:17 DC Albuterol Sulfate (Ventolin Neb Soln) 2.5 mg PRN Q4HRS PRN 12/30/21 02:00 12/30/21 01:55 2.5 MG Albuterol/ Ipratropium (Duoneb) 3 ml RTQID 12/30/21 12:00 01/08/22 07:49 3 ML Amiodarone HCl (Cordarone) 300 mg STK-MED ONCE 12/30/21 20:00 01/01/22 13:17 DC Amlodipine Besylate (Norvasc) 10 mg DAILY 01/04/22 10:00 01/08/22 08:07 10 MG Aspirin (Aspirin Chewable) 162 mg [id number] 01/03/22 08:00 01/08/22 08:07 162 MG Aspirin (Aspirin Rectal Supp) 300 mg DAILY 12/30/21 11:00 01/02/22 15:08 DC 01/02/22 09:42 300 MG Atorvastatin Calcium (Lipitor) 80 mg QHS 12/24/21 21:00 01/07/22 21:15 80 MG Atropine Sulfate (ATROPINE 0.5mg SYRINGE) 0.5 mg PRN Q5MIN PRN 12/30/21 21:30 Bisacodyl (Dulcolax Supp) 10 mg PRN DAILY PRN 12/24/21 20:15 UNV Cefazolin Sodium (Ancef) 1 gm 1X ONCE 01/01/22 13:30 01/01/22 08:01 DC Cetirizine HCl (ZyrTEC) 10 mg DAILY 12/25/21 10:00 01/08/22 08:06 10 MG Chlorhexidine Gluconate (Peridex) 15 ml BID 12/31/21 09:00 01/06/22 17:10 DC 01/05/22 20:43 15 ML Clonidine HCl (Catapres Tts-2) 1 patch WEEKLY 12/26/21 15:00 01/02/22 09:40 1 PATCH Dexmedetomidine HCl 400 mcg/ Sodium Chloride 100 ml @ 3.195 mls/ hr CONT PRN 12/30/21 21:30 Dextrose 1,000 ml @ 75 mls/hr [id number] 01/01/22 10:45 01/02/22 16:48 DC 01/02/22 05:15 75 MLS/HR Dextrose (Dextrose 50%-Water Syringe) 12.5 gm PRN Q15MIN PRN 12/24/21 20:15 Dextrose (Iv Dextrose 5%) 250 ml PRN Q15MIN PRN 12/24/21 20:15 Diltiazem HCl 125 mg/Sodium Chloride 125 ml @ 5 mls/hr CONT PRN 12/30/21 18:15 12/30/21 19:20 DC Enalaprilat (Vasotec Inj) 1.25 mg Q6HRS 12/28/21 12:00 12/31/21 14:47 DC 12/30/21 12:54 1.25 MG Epinephrine HCl (EPINEPHrine SYRINGE) 3 mg STK-MED ONCE 12/30/21 20:00 01/01/22 13:17 DC Etomidate (Amidate) 20 mg STK-MED ONCE 12/30/21 20:00 01/01/22 09:12 DC Famotidine (Pepcid Vial) 20 mg DAILY 12/27/21 09:00 01/05/22 10:49 DC 01/05/22 08:09 20 MG Fentanyl Citrate 30 ml @ 0 mls/hr CONT PRN 12/30/21 21:30 01/08/22 02:09 1.25 MLS/HR Furosemide (Lasix) 80 mg 1X ONCE 01/05/22 13:00 01/05/22 13:01 DC 01/05/22 14:26 80 MG Glycerin/ Hypromellose/ Polyethylene (Artificial Tears) 1 drop PRN Q1HR PRN 12/30/21 21:30 01/06/22 18:08 1 DROP Heparin Sodium (Porcine) (Heparin Sodium) 5,000 unit Q8HRS 01/03/22 14:00 01/08/22 05:35 5,000 UNIT Hydralazine HCl (Apresoline Inj) 10 mg PRN Q4HRS PRN 12/24/21 20:15 01/05/22 08:33 10 MG Hydrochlorothiazide (Hydrodiuril) 25 mg DAILY 12/25/21 10:00 12/31/21 14:47 DC Insulin Human Lispro (HumaLOG) 0-9 UNITS Q6HRS 12/25/21 00:00 01/08/22 05:36 4 UNITS Labetalol HCl (Normodyne Iv Push) 20 mg PRN Q2HR PRN 12/26/21 13:30 01/05/22 22:17 20 MG Lactobacillus Rhamnosus (Culturelle) 1 cap BID 12/30/21 21:00 01/02/22 07:33 DC Lansoprazole (Prevacid) 30 mg DAILY 01/06/22 07:30 01/08/22 08:07 30 MG Linezolid/Dextrose 300 ml @ 300 mls/hr Q12HR 01/02/22 21:00 01/06/22 14:33 DC 01/06/22 09:30 300 MLS/HR Lorazepam (Ativan Inj) 2 mg PRN Q4HRS PRN 12/25/21 10:00 12/29/21 20:16 2 MG Losartan Potassium (Cozaar) 100 mg DAILY 12/25/21 10:00 12/31/21 14:46 DC Magnesium Sulfate 50 ml @ 25 mls/hr 1X ONCE 12/31/21 08:30 12/31/21 10:29 DC 12/31/21 09:06 25 MLS/HR Magnesium Sulfate/ Dextrose (Magnesium Sulfate PREMIX 1GM) 1 gm STK-MED ONCE 12/30/21 20:00 01/01/22 13:17 DC Midazolam HCl (Versed) 5 mg PRN 1X PRN 12/30/21 21:30 12/31/21 21:29 DC Montelukast Sodium (Singulair) 10 mg DAILY 12/25/21 10:00 01/08/22 08:07 10 MG Nicardipine HCl 50 mg/Sodium Chloride 250 ml @ 12.5 mls/hr CONT PRN 12/30/21 19:30 01/08/22 09:02 62.5 MLS/HR Nicotine (Nicoderm Cq 21mg) 1 patch DAILY 12/26/21 15:00 01/06/22 09:19 1 PATCH Nitroglycerin (Nitro-Bid Oint) 1 inch Q6HRS 12/26/21 18:00 01/08/22 05:35 1 INCH Olanzapine (ZyPREXA ZYDIS) 5 mg PRN BID PRN 12/24/21 20:15 12/24/21 22:49 5 MG Ondansetron HCl (Zofran) 4 mg PRN Q4HRS PRN 12/24/21 20:15 Pantoprazole Sodium (Protonix) 40 mg DAILYAC 12/25/21 11:30 12/29/21 12:07 DC Piperacillin Sod/ Tazobactam Sod (Zosyn Per Pharmacy) 1 each PRN DAILY PRN 12/30/21 04:30 01/06/22 14:34 DC Piperacillin Sod/ Tazobactam Sod 3.375 gm/Sodium Chloride 50 ml @ 100 mls/hr Q6HRS 12/30/21 06:00 01/06/22 14:33 DC 01/06/22 12:13 100 MLS/HR Potassium Bicarbonate (Potassium Effervescent Tablet) 40 meq 1X ONCE 01/02/22 17:45 01/02/22 17:47 DC 01/02/22 17:54 20 MEQ Potassium Chloride/Water 100 ml @ 100 mls/hr Q1H 01/05/22 08:00 01/05/22 09:59 DC 01/05/22 08:35 100 MLS/HR Propofol 100 ml @ 1.917 mls/ hr CONT PRN 12/30/21 21:30 01/08/22 03:50 7.668 MLS/HR Sodium Bicarbonate 150 meq/Dextrose 1,150 ml @ 75 mls/hr [id number] 12/30/21 11:00 12/31/21 08:24 DC 12/31/21 03:04 75 MLS/HR Sodium Bicarbonate (Sodium Bicarb Adult 8.4% Syr) 50 meq STK-MED ONCE 12/30/21 20:00 01/01/22 13:17 DC Sodium Chloride 1,000 ml @ 75 mls/hr [id number] 12/31/21 08:30 01/01/22 10:39 DC 01/01/22 04:01 75 MLS/HR Succinylcholine Chloride (Anectine) 200 mg STK-MED ONCE 12/30/21 20:00 01/01/22 09:12 DC Vancomycin HCl (Vanco Per Pharmacy) 1 each PRN DAILY PRN 12/30/21 10:30 01/02/22 09:58 DC 01/01/22 12:42 1 EACH Vancomycin HCl (Vancomycin Trough Level) 1 each 1X ONCE 01/03/22 10:30 01/03/22 10:31 Cancel Vancomycin HCl 1.5 gm/Sodium Chloride 500 ml @ 250 mls/hr 1X ONCE 12/30/21 11:00 12/30/21 12:59 DC 12/30/21 10:51 250 MLS/HR Vancomycin HCl 1 gm/Sodium Chloride 250 ml @ 250 mls/hr Q36H 01/01/22 23:00 01/02/22 09:58 DC 01/01/22 22:52 250 MLS/HR Vecuronium Ridge (Norcuron Bolus) 6 mg PRN 1X PRN 12/30/21 21:30 12/31/21 21:29 DC Vitamin D (Vitamin D3) 1,000 unit DAILY 12/25/21 10:00 01/08/22 08:07 1,000 UNIT Lab Laboratory Tests Test 01/07/22 12:03 01/07/22 14:23 01/07/22 23:53 01/08/22 05:25 Glucose (Fingerstick) 146 mg/dL (70-99) 87 mg/dL (70-99) 185 mg/dL (70-99) Sodium Level 137 mmol/L (136-145) Potassium Level 3.8 mmol/L (3.5-5.1) Chloride Level 102 mmol/L (98-107) Carbon Dioxide Level 24 mmol/L (21-32) Anion Gap 11 (6-14) Blood Urea Nitrogen 35 mg/dL (7-20) Creatinine 2.1 mg/dL (0.6-1.0) Estimated GFR (Cockcroft-Gault) 24.6 Glucose Level 181 mg/dL (70-99) Calcium Level 8.7 mg/dL (8.5-10.1) Phosphorus Level 5.2 mg/dL (2.6-4.7) Albumin 1.3 g/dL (3.4-5.0) Test 01/08/22 05:26 01/08/22 07:45 Glucose (Fingerstick) 165 mg/dL (70-99) O2 Saturation 93 % (92-99) Arterial Blood pH 7.41 (7.35-7.45) Arterial Blood pCO2 at Patient Temp 37 mmHg (35-46) Arterial Blood pO2 at Patient Temp 68 mmHg (75-108) Arterial Blood HCO3 23 mmol/L (21-28) Arterial Blood Base Excess -1 mmol/L (-3-3) FiO2 30 Results All relevant outside records, renal labs, imaging studies, telemetry/EKG's were reviewed. Justicifation of Admission Dx: Justifications for Admission: Justification of Admission Dx: Yes Stroke - Ischemic: Stroke-Ischemic VIKA WEST MD Jan 08, 2022 09:08
--- NOTE | 2022-01-08 11:14 | PDOC ---
Date of Service: DATE: 01/08/22 TIME: 11:11 Objective: Objective: D/w nurse - PEG functioning, loose stools and now w/ rectal tube. Possibly withdraw care. Vital Signs: Vital Signs Date Time Temp Pulse Resp B/P (MAP) Pulse Ox O2 Delivery O2 Flow Rate FiO2 01/08/22 09:36 96 Ventilator 01/08/22 08:07 95 166/63 01/08/22 07:00 16 01/08/22 04:00 98.1 98.1 01/07/22 08:24 15.0 Labs: Laboratory Tests Test 01/07/22 12:03 01/07/22 14:23 01/07/22 23:53 01/08/22 05:25 Glucose (Fingerstick) 146 mg/dL 87 mg/dL 185 mg/dL Sodium Level 137 mmol/L Potassium Level 3.8 mmol/L Chloride Level 102 mmol/L Carbon Dioxide Level 24 mmol/L Anion Gap 11 Blood Urea Nitrogen 35 mg/dL Creatinine 2.1 mg/dL Estimated GFR (Cockcroft-Gault) 24.6 Glucose Level 181 mg/dL Calcium Level 8.7 mg/dL Phosphorus Level 5.2 mg/dL Albumin 1.3 g/dL Triglycerides Level 261 mg/dL Test 01/08/22 05:26 01/08/22 07:45 Glucose (Fingerstick) 165 mg/dL O2 Saturation 93 % Arterial Blood pH 7.41 Arterial Blood pCO2 at Patient Temp 37 mmHg Arterial Blood pO2 at Patient Temp 68 mmHg Arterial Blood HCO3 23 mmol/L Arterial Blood Base Excess -1 mmol/L FiO2 30 PE: GEN: intubated LUNGS: vent ABD: rectal tube w/ liquid brown stool, PEG in place, abd soft NEURO/PSYCH: sedated A/P: S/p PEG Loose stools Bilateral thalamic infarcts -- Await family's decision. Justicifation of Admission Dx: Justifications for Admission: Justification of Admission Dx: Yes Stroke - Ischemic: Stroke-Ischemic SHANICE RAE Jan 08, 2022 11:14
--- NOTE | 2022-01-08 11:31 | PDOC ---
[employer] PROGRESS NOTE Date of Service DOS: DATE: 01/08/22 TIME: 11:29 Chief Complaint Chief Complaint Expressive aphasia unilateral weakness secondary to 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 Acute respiratory failure requiring BiPAP support Concern for early sepsis Dehydration Metabolic acidosis Acute electrolyte derangement, hypernatremia and hyperchloremia-possible dehydration History hypertension History of diabetes diabetes History of Present Illness History of Present Illness 01/08/2022 Patient seen and examined in the ICU She remains on the ventilator AC/16/400/30 percent with 5 of PEEP Discussed with GI nurse practitioner Discussed with RN Chart reviewed Patient's art line shows a pressure 168/62 Full to bedside drainage Sedated with propofol and fentanyl OG running at 30 cc an hour Still on Cardene drip 01/07/2020 Patient seen and examined in the ICU She remains on the ventilator AC/16/400/30 percent with 5 of PEEP Berumen to bedside drainage Art line in place with a pressure 149/61 PEG feeds running She is sedated with propofol fentanyl Also has a Cardene drip running She remains critically ill Discussed with RN Chart reviewed 01/06/2022 Patient seen and examined in the ICU She remains on the vent AC/16/400/30 percent with five of PEEP Has PEG feed running at 30 cc an hour Has Berumen to bedside drainage Zyvox hanging IV Sedated with propofol and fentanyl Has Cardene drip running Discussed with RN Chart reviewed She remains critically ill 01/05/2022 Patient seen and examined in the ICU again She remains on the vent AC/16/400/30 percent with 5 of PEEP Has her new PEG feeds running at 30 cc an hour Sedated with fentanyl Still requiring Cardene drip 01/04/2022 Patient seen and examined in the ICU She is on the vent AC/16/400/30 percent with 5 of PEEP (satting 100% and has a pH of 7.44) Art line in place Sedated with propofol and fentanyl PEG feed running at 30 cc an hour On Cardene drip but I discussed with RN working to titrate that off and start per PEG Norvasc Chart reviewed She remains critically ill 01/03/2022 Patient seen and examined in the ICU She remains on the vent AC/16/400/30 percent with 5 of PEEP Discussed with RN, the patient's urine output is a low Currently sedated with propofol Has IV Zosyn and IV Zyvox NG running at 30 cc an hour Has Berumen to bedside drainage ABIs are in place Art line appears clean dry intact and functioning well Chart reviewed She remains critically ill 01/02/2022 Patient seen and examined in the ICU She got her PEG yesterday but then apparently aspirated and had to be intubated Vent settings as follows AC/16/400/30 5% with 5 of PEEP Sedated with propofol fentanyl Has IV Zosyn hanging D5 water also hanging Creatinine bumped up a little bit (I called the pharmacy working to stop the Vanco and start Zyvox) Chart reviewed Discussed with RN She is critically ill 01/01/2022 Patient seen and examined in the ICU She remains on the vent AC/16/400/30 5% with 5 of PEEP Art line in place Sedated with propofol and fentanyl Has half-normal saline hanging with Zosyn Berumen to bedside drainage Chart reviewed Discussed with RN 12/31 Patient evaluated examined at bedside. She required intubation overnight and is currently intubated and sedated. Patient was intubated after family decided on continuing full treatment measures. Blood pressure improved. When seen patient unresponsive no withdrawal to pain. Pupils do still have reflex. Continue current. Nephrology pulmonology following. 45 minutes critical care time 12/30/2021 Rapid response called last night for desaturations down to the 70s. Labs were obtained showing hypernatremia. Patient still unresponsive and placed on BiPAP. ABG showed 7.1 //14. Concern for aspiration, worsening of stroke, or dehydration. Nephrology and pulmonology consulted. Patient transferred to the ICU. Empiric IV antibiotics are started and blood cultures are obtained. D5 bicarb drip started. Patient's chart, labs, images were reviewed and discussed with RN 12/29/21 No acute events overnight. Patient seen examined bedside. Sleeping in bed and unable to be arousable with sternal rub or to voice. Patient unable to follow through with speech evaluation. Will need to consider TPN for nutrition. Medicaid application pending. Patient's chart, labs, images were reviewed and discussed with RN 12/28 Patient evaluated examined at bedside. She was sleeping in bed unable to get her to open her eyes even with sternal rub. Some withdrawal to pain in the right lower extremity none in right upper extremity. Unable to follow commands to see if she could hold her arm against gravity. Still having some trouble controlling blood pressure is still on Cardene drip for now. Will schedule Vasotec and try to start weaning off the Cardene drip. 12/27 Evaluated and examined at bedside. She was resting in bed not easily awoken and still cannot provide me really with any history given her aphasic state. She did have some withdrawal to pain in the right lower extremity still no movement and right upper. PT OT. Neuro following. Plan discussed bedside RN. 12/26 Evaluated and examined at bedside. Is a bit lethargic today difficulty staying awake this morning. MRI showing acute infarcts. Neurology continues to follow. Patient remains aphasic. Therapy modalities. Blood pressure control with IV until able to take oral Okay to transfer out of ICU to CVC if bed is needed Vitals/I&O Vitals/I&O: Vital Signs Date Time Temp Pulse Resp B/P (MAP) Pulse Ox O2 Delivery O2 Flow Rate FiO2 01/08/22 11:00 90 16 144/58 98 Ventilator 01/08/22 08:00 98.5 98.5 01/07/22 08:24 15.0 I & O 01/07/22 01/07/22 01/08/22 15:00 23:00 07:00 Intake Total 260 ml 886 ml 1922 ml Output Total 300 ml 350 ml 390 ml Balance -40 ml 536 ml 1532 ml Physical Exam General: Other (Sedated on the vent) Heart: Regular rate Lungs: Crackles Abdomen: Other (New PEG tube in place) Extremities: No clubbing Skin: No breakdown Labs Labs: Laboratory Tests Test 01/07/22 12:03 01/07/22 14:23 01/07/22 23:53 01/08/22 05:25 Glucose (Fingerstick) 146 mg/dL (70-99) 87 mg/dL (70-99) 185 mg/dL (70-99) Sodium Level 137 mmol/L (136-145) Potassium Level 3.8 mmol/L (3.5-5.1) Chloride Level 102 mmol/L (98-107) Carbon Dioxide Level 24 mmol/L (21-32) Anion Gap 11 (6-14) Blood Urea Nitrogen 35 mg/dL (7-20) Creatinine 2.1 mg/dL (0.6-1.0) Estimated GFR (Cockcroft-Gault) 24.6 Glucose Level 181 mg/dL (70-99) Calcium Level 8.7 mg/dL (8.5-10.1) Phosphorus Level 5.2 mg/dL (2.6-4.7) Albumin 1.3 g/dL (3.4-5.0) Triglycerides Level 261 mg/dL (0-150) Test 01/08/22 05:26 01/08/22 07:45 Glucose (Fingerstick) 165 mg/dL (70-99) O2 Saturation 93 % (92-99) Arterial Blood pH 7.41 (7.35-7.45) Arterial Blood pCO2 at Patient Temp 37 mmHg (35-46) Arterial Blood pO2 at Patient Temp 68 mmHg (75-108) Arterial Blood HCO3 23 mmol/L (21-28) Arterial Blood Base Excess -1 mmol/L (-3-3) FiO2 30 Assessment and Plan Assessmemt and Plan Stroke (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) Respiratory failure New PEG Expressive aphasia unilateral weakness secondary to 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 Resolving sepsis Dehydration Hyponatremia Hypokalemia Hypomagnesemia Metabolic acidosis Acute electrolyte derangement, hypernatremia and hyperchloremia-possible dehydration History hypertension History of diabetes diabetes Plan Suspect we might need to move towards comfort care as her long-term prognosis is poor. For now continue the following; ICU monitoring Vent weaning Still trying to wean off the Cardene drip Continue sedation with propofol fentanyl Monitor art line Maintain Berumen Continue PEG feeds Follow cultures Appreciate subspecialist input (nephrology gastroenterology neurology and pulmonary medicine) Trend labs Statins Aspirin DVT prophylaxis with [place] Full code Sliding-scale insulin Prognosis extremely guarded at best CC time 33 minutes Comment Review of Relevant I have reviewed the following items chino (where applicable) has been applied. Justifications for Admission TIA Indications Persistent neurologic signs?: Yes Justification for admission: There is persistence of patient's focal neurologic signs or symptoms or there is concern for recurrence of patient's neurological signs and symptoms. Severe hypertension?: Yes Justification for admission: There is concern for patient's severe hypertension of (>180/110mmHg--please indicate patient's BP here) that has not been controlled by ED treatment. Patient needs inpatient level of care for further evaluation and management. Other Justification JAGDISH ONEIL III DO Jan 08, 2022 11:31
[2022-01-08] MEDS: hydrALAZINE 20 MG/ML VIAL. IVP PRN (11:39)
[2022-01-08] MEDS: LABETALOL 20 MG/4 ML DISP.SYRIN. IVP PRN (13:45)
--- NOTE | 2022-01-08 15:25 | NUR ---
Around 1430, patients at bedside. At around 1445, patients ring was given to patients at the bedside.
--- NOTE | 2022-01-08 16:09 | NUR ---
SS following up with discharge planning. SS reviewed pt chart and discussed with pt RN. Pt is currently on the vent at 30%. Pt on Propofol and Fentanyl. Physicians discussing goals of care with pt's family. Not ready. Self pay. Med Assist following. SS will continue to follow for discharge planning.
[2022-01-08] MEDS: ATORVASTATIN CALCIUM 40 MG TABLET. PO SCH (22:03)
[2022-01-09] VITALS (21 sets, daily range): BP systolic 128–188; BP diastolic 50–80
[2022-01-09] MEDS: INSULIN LISPRO 300 UNITS/3 ML VIAL. SQ SCH ×5 (00:53→23:24)
[2022-01-09] MEDS: NITROGLYCERIN OINT 1 GM PACKET. TP SCH ×5 (00:57→23:27)
[2022-01-09] MEDS: PROPOFOL 100 ML IV PRN ×3 (06:19→23:17)
[2022-01-09] MEDS: HEPARIN for SUB-Q USE 5,000 UNIT/ML VIAL. SQ SCH ×3 (06:21→22:52)
[2022-01-09] MEDS: ASPIRIN CHEWABLE 81 MG TABLET. PO SCH (08:36)
[2022-01-09] MEDS: IPRATRPIUM/ALBUTEROL 0.5/2.5MG 3 ML NEBU. NEB SCH ×4 (08:36→20:00)
[2022-01-09] MEDS: CETIRIZINE HCL 10 MG TABLET. PO SCH ×2 (08:37→12:27)
[2022-01-09] MEDS: CHOLECALCIFEROL (VITAMIN D3) 1,000 UNIT TABLET PO SCH (08:37)
[2022-01-09] MEDS: cloNIDine TTS-2 1 PATCH PATCH TD SCH (09:00)
[2022-01-09] MEDS: MONTELUKAST SODIUM 10 MG TABLET. PO SCH (09:00)
--- NOTE | 2022-01-09 09:56 | PDOC ---
Date of Service: DATE: 01/09/22 TIME: 09:54 Objective: Objective: D/w nurse - pt seems more rigid, PEG functioning, no decision from family yet. Vital Signs: Vital Signs Date Time Temp Pulse Resp B/P (MAP) Pulse Ox O2 Delivery O2 Flow Rate FiO2 01/09/22 08:37 91 169/60 01/09/22 08:02 96 Ventilator 01/09/22 06:00 16 01/09/22 04:00 98.5 98.5 Labs: Laboratory Tests Test 01/08/22 11:36 01/08/22 17:51 01/09/22 00:33 01/09/22 04:55 Glucose (Fingerstick) 174 mg/dL 171 mg/dL 157 mg/dL 177 mg/dL PE: GEN: intubated ABD: soft, non-distended, PEG site clean and dry, feeds @ 30cc/hr NEURO/PSYCH: sedated A/P: Bilateral thalamic infarcts s/p PEG -- PEG functioning, continue same per GI. Justicifation of Admission Dx: Justifications for Admission: Justification of Admission Dx: Yes Stroke - Ischemic: Stroke-Ischemic SHANICE RAE Jan 09, 2022 09:56
--- NOTE | 2022-01-09 10:28 | PDOC ---
PULMONARY PROGRESS NOTES DATE: 01/09/22 TIME: 10:28 Subjective No overnight events patient currently on 30% FiO2 5 of PEEP Sedated Vitals Vital Signs Date Time Temp Pulse Resp B/P (MAP) Pulse Ox O2 Delivery O2 Flow Rate FiO2 01/09/22 08:37 91 169/60 01/09/22 08:02 96 Ventilator 01/09/22 06:00 16 01/09/22 04:00 98.5 98.5 Comments ros unable to obtain sedated on vent HEENT: Other (nc at orally intubated nose clear neck no lad no thyromegaly) Lungs: Crackles Cardiovascular: S1, S2 Abdomen: Soft Extremities: Other Skin: Warm, Dry Labs Laboratory Tests Test 01/07/22 12:03 01/07/22 14:23 01/07/22 23:53 01/08/22 05:25 Glucose (Fingerstick) 146 mg/dL (70-99) 87 mg/dL (70-99) 185 mg/dL (70-99) Sodium Level 137 mmol/L (136-145) Potassium Level 3.8 mmol/L (3.5-5.1) Chloride Level 102 mmol/L (98-107) Carbon Dioxide Level 24 mmol/L (21-32) Anion Gap 11 (6-14) Blood Urea Nitrogen 35 mg/dL (7-20) Creatinine 2.1 mg/dL (0.6-1.0) Estimated GFR (Cockcroft-Gault) 24.6 Glucose Level 181 mg/dL (70-99) Calcium Level 8.7 mg/dL (8.5-10.1) Phosphorus Level 5.2 mg/dL (2.6-4.7) Albumin 1.3 g/dL (3.4-5.0) Triglycerides Level 261 mg/dL (0-150) Test 01/08/22 05:26 01/08/22 07:45 01/08/22 11:36 01/08/22 17:51 Glucose (Fingerstick) 165 mg/dL (70-99) 174 mg/dL (70-99) 171 mg/dL (70-99) O2 Saturation 93 % (92-99) Arterial Blood pH 7.41 (7.35-7.45) Arterial Blood pCO2 at Patient Temp 37 mmHg (35-46) Arterial Blood pO2 at Patient Temp 68 mmHg (75-108) Arterial Blood HCO3 23 mmol/L (21-28) Arterial Blood Base Excess -1 mmol/L (-3-3) FiO2 30 Test 01/09/22 00:33 01/09/22 04:55 Glucose (Fingerstick) 157 mg/dL (70-99) 177 mg/dL (70-99) Laboratory Tests Test 01/08/22 11:36 01/08/22 17:51 01/09/22 00:33 01/09/22 04:55 Glucose (Fingerstick) 174 mg/dL (70-99) 171 mg/dL (70-99) 157 mg/dL (70-99) 177 mg/dL (70-99) Medications Active Scripts Medications Dose Route/Sig Max Daily Dose Days Date Category Dose Instructions Montelukast Sodium 10 Mg Tablet 1 Tab PO DAILY 12/24/21 Reported Stool Softener (Docusate Sodium) 50 Mg Capsule 50 Mg PO BID 06/02/19 Reported [place] 5-325 Tablet (Acetaminophen/Hydrocodone Bitart) 1 Each Tablet 1 Tab PO Q4HRS 06/02/19 Reported LAST DOSE GIVEN: Lantus Solostar (Insulin Glargine,Hum.rec.anlog) 100 Unit/1 Ml Insuln.pen 21 Unit SQ QHS 06/02/19 Reported Culturelle (Lactobacillus Rhamnosus Gg) 1 Each Capsule 1 Each PO DAILY 06/01/19 Reported Alive Once Daily Women 50 Plus (Mv-Mn/Folic Acid/Vit K/[id number]) 1 Each Tablet 1 Each PO DAILY 06/01/19 Reported [place] 5-325 Tablet (Acetaminophen/Hydrocodone Bitart) 1 Each Tablet 1 Tab PO PRN Q6HRS PRN 06/01/19 Reported Tizanidine Hcl 4 Mg Tablet 2 Tab PO TID PRN 06/01/19 Reported Proair Hfa Inhaler (Albuterol Sulfate) 8.5 Gm Hfa.aer.ad 1 Puff INH PRN Q6HRS PRN 01/19/19 Reported Montelukast Sodium Tablet (Montelukast Sodium) 10 Mg Tablet 1 Tab PO DAILY 01/19/19 Reported Losartan-Hctz 100-25 Mg Tab (Losartan/Hydrochlorothiazide) 1 Each Tablet 1 Tab PO DAILY 01/19/19 Reported Protonix (Pantoprazole Sodium) 20 Mg Tablet.dr 1 Tab PO DAILY 01/19/19 Reported Vitamin D3 (Cholecalciferol (Vitamin D3)) 1,000 Unit Tablet 1 Tab PO DAILY 01/19/19 Reported Cetirizine Hcl 10 Mg Tablet 1 Tab PO DAILY 01/19/19 Reported Janumet 50-1,000 Mg Tablet (Sitagliptin Phos/Metformin Hcl) 1 Each Tablet 1 Tab PO BID 01/19/19 Reported Comments cxr reviewed ett ok b lat basilar atelectasis infilt Impression . Acute hypoxemic respiratory failure multifactorial metabolic encephalopathy Acute kidney injury, per nephrology Possible sepsis Hypomagnesemia hypokalemia Uncontrolled hypertension Severe metabolic acidosis CVA--positive MRI 12/25/2021, see MRI report COPD Thyroid disorder Status post PEG Plan . Updated 01/09 Discussed with RN, family to make final decision on withdrawal Continue current support We will have further discussion with family, I recommend withdrawal of care and allow natural VAIBHAV PARIKH MD Jan 09, 2022 10:28
--- NOTE | 2022-01-09 11:06 | PDOC ---
DATE OF SERVICE DATE: 01/09/22 TIME: 11:05 SUBJECTIVE ROS Remains Intubated , stable OBJECTIVE Vital Signs Vital Signs Date Time Temp Pulse Resp B/P (MAP) Pulse Ox O2 Delivery O2 Flow Rate FiO2 01/09/22 08:37 91 169/60 01/09/22 08:02 96 Ventilator 01/09/22 06:00 16 01/09/22 04:00 98.5 98.5 I & 0 Intake and Output 01/09/22 07:00 Intake Total 3727 ml Output Total 1055 ml Balance 2672 ml IV Total 1356 ml Tube Feeding 1459 ml Other 912 ml Output Urine Total 1055 ml PHYSICAL EXAM Physical Exam General Appearance: Intubated HEEN ETT + Skin: warm, No rash Respiratory: bilateral CTA ant Heart: S1S2 Abdomen: soft, bowel sounds present Genitourinary: Berumen Extremities: No LE edema , No cyanosis Neurology: sedated DIAGNOSIS/ASSESSMENT Assessment & Plan MICHELET - Stable renal function, No labs today Non Oliguric, Lasix IV prn . supportive care, maintain fluid balance, avoid Nephrotoxins HyperNatremia - Resolved HypoKalemia - Normal K Anemia- Hgb trended down, last H &H 01/01 defer to primary ? CKD stage 3 Creat 2,1 in 2019 x 1 , No interval labs CVA HTN- stable, antihypertensives DM II- primary managing Patient is DNR. COMMENT/RELEVANT DATA Meds Current Medications Medications (Trade) Dose Ordered Sig/Fabio Start Time Stop Time Status Last Admin Dose Admin Acetaminophen (Tylenol Supp) 650 mg PRN Q6HRS PRN 12/24/21 20:15 Acetaminophen (Tylenol) 650 mg PRN Q6HRS PRN 12/24/21 20:15 12/24/21 20:17 DC Albuterol Sulfate (Ventolin Neb Soln) 2.5 mg PRN Q4HRS PRN 12/30/21 02:00 12/30/21 01:55 2.5 MG Albuterol/ Ipratropium (Duoneb) 3 ml RTQID 12/30/21 12:00 01/09/22 08:36 3 ML Amiodarone HCl (Cordarone) 300 mg STK-MED ONCE 12/30/21 20:00 01/01/22 13:17 DC Amlodipine Besylate (Norvasc) 10 mg DAILY 01/04/22 10:00 01/09/22 08:37 10 MG Aspirin (Aspirin Chewable) 162 mg [id number] 01/03/22 08:00 01/09/22 08:36 162 MG Aspirin (Aspirin Rectal Supp) 300 mg DAILY 12/30/21 11:00 01/02/22 15:08 DC 01/02/22 09:42 300 MG Atorvastatin Calcium (Lipitor) 80 mg QHS 12/24/21 21:00 01/08/22 22:03 80 MG Atropine Sulfate (ATROPINE 0.5mg SYRINGE) 0.5 mg PRN Q5MIN PRN 12/30/21 21:30 Bisacodyl (Dulcolax Supp) 10 mg PRN DAILY PRN 12/24/21 20:15 UNV Cefazolin Sodium (Ancef) 1 gm 1X ONCE 01/01/22 13:30 01/01/22 08:01 DC Cetirizine HCl (ZyrTEC) 10 mg DAILY 12/25/21 10:00 01/09/22 08:37 10 MG Chlorhexidine Gluconate (Peridex) 15 ml BID 12/31/21 09:00 01/06/22 17:10 DC 01/05/22 20:43 15 ML Clonidine HCl (Catapres Tts-2) 1 patch WEEKLY 12/26/21 15:00 01/02/22 09:40 1 PATCH Dexmedetomidine HCl 400 mcg/ Sodium Chloride 100 ml @ 3.195 mls/ hr CONT PRN 12/30/21 21:30 Dextrose 1,000 ml @ 75 mls/hr [id number] 01/01/22 10:45 01/02/22 16:48 DC 01/02/22 05:15 75 MLS/HR Dextrose (Dextrose 50%-Water Syringe) 12.5 gm PRN Q15MIN PRN 12/24/21 20:15 Dextrose (Iv Dextrose 5%) 250 ml PRN Q15MIN PRN 12/24/21 20:15 Diltiazem HCl 125 mg/Sodium Chloride 125 ml @ 5 mls/hr CONT PRN 12/30/21 18:15 12/30/21 19:20 DC Enalaprilat (Vasotec Inj) 1.25 mg Q6HRS 12/28/21 12:00 12/31/21 14:47 DC 12/30/21 12:54 1.25 MG Epinephrine HCl (EPINEPHrine SYRINGE) 3 mg STK-MED ONCE 12/30/21 20:00 01/01/22 13:17 DC Etomidate (Amidate) 20 mg STK-MED ONCE 12/30/21 20:00 01/01/22 09:12 DC Famotidine (Pepcid Vial) 20 mg DAILY 12/27/21 09:00 01/05/22 10:49 DC 01/05/22 08:09 20 MG Fentanyl Citrate 30 ml @ 0 mls/hr CONT PRN 12/30/21 21:30 01/09/22 02:11 2.5 MLS/HR Furosemide (Lasix) 80 mg 1X ONCE 01/05/22 13:00 01/05/22 13:01 DC 01/05/22 14:26 80 MG Glycerin/ Hypromellose/ Polyethylene (Artificial Tears) 1 drop PRN Q1HR PRN 12/30/21 21:30 01/06/22 18:08 1 DROP Heparin Sodium (Porcine) (Heparin Sodium) 5,000 unit Q8HRS 01/03/22 14:00 01/09/22 06:21 5,000 UNIT Hydralazine HCl (Apresoline Inj) 10 mg PRN Q4HRS PRN 12/24/21 20:15 01/08/22 11:39 10 MG Hydrochlorothiazide (Hydrodiuril) 25 mg DAILY 12/25/21 10:00 12/31/21 14:47 DC Insulin Human Lispro (HumaLOG) 0-9 UNITS Q6HRS 12/25/21 00:00 01/09/22 05:05 4 UNITS Labetalol HCl (Normodyne Iv Push) 20 mg PRN Q2HR PRN 12/26/21 13:30 01/05/22 22:17 20 MG Lactobacillus Rhamnosus (Culturelle) 1 cap BID 12/30/21 21:00 01/02/22 07:33 DC Lansoprazole (Prevacid) 30 mg DAILY 01/06/22 07:30 01/08/22 08:07 30 MG Linezolid/Dextrose 300 ml @ 300 mls/hr Q12HR 01/02/22 21:00 01/06/22 14:33 DC 01/06/22 09:30 300 MLS/HR Lorazepam (Ativan Inj) 2 mg PRN Q4HRS PRN 12/25/21 10:00 12/29/21 20:16 2 MG Losartan Potassium (Cozaar) 100 mg DAILY 12/25/21 10:00 12/31/21 14:46 DC Magnesium Sulfate 50 ml @ 25 mls/hr 1X ONCE 12/31/21 08:30 12/31/21 10:29 DC 12/31/21 09:06 25 MLS/HR Magnesium Sulfate/ Dextrose (Magnesium Sulfate PREMIX 1GM) 1 gm STK-MED ONCE 12/30/21 20:00 01/01/22 13:17 DC Midazolam HCl (Versed) 5 mg PRN 1X PRN 12/30/21 21:30 12/31/21 21:29 DC Montelukast Sodium (Singulair) 10 mg DAILY 12/25/21 10:00 01/08/22 08:07 10 MG Nicardipine HCl 50 mg/Sodium Chloride 250 ml @ 12.5 mls/hr CONT PRN 12/30/21 19:30 01/09/22 02:08 25 MLS/HR Nicotine (Nicoderm Cq 21mg) 1 patch DAILY 12/26/21 15:00 01/06/22 09:19 1 PATCH Nitroglycerin (Nitro-Bid Oint) 1 inch Q6HRS 12/26/21 18:00 01/09/22 06:17 1 INCH Olanzapine (ZyPREXA ZYDIS) 5 mg PRN BID PRN 12/24/21 20:15 12/24/21 22:49 5 MG Ondansetron HCl (Zofran) 4 mg PRN Q4HRS PRN 12/24/21 20:15 Pantoprazole Sodium (Protonix) 40 mg DAILYAC 12/25/21 11:30 12/29/21 12:07 DC Piperacillin Sod/ Tazobactam Sod (Zosyn Per Pharmacy) 1 each PRN DAILY PRN 12/30/21 04:30 01/06/22 14:34 DC Piperacillin Sod/ Tazobactam Sod 3.375 gm/Sodium Chloride 50 ml @ 100 mls/hr Q6HRS 12/30/21 06:00 01/06/22 14:33 DC 01/06/22 12:13 100 MLS/HR Potassium Bicarbonate (Potassium Effervescent Tablet) 40 meq 1X ONCE 01/02/22 17:45 01/02/22 17:47 DC 01/02/22 17:54 20 MEQ Potassium Chloride/Water 100 ml @ 100 mls/hr Q1H 01/05/22 08:00 01/05/22 09:59 DC 01/05/22 08:35 100 MLS/HR Propofol 100 ml @ 1.917 mls/ hr CONT PRN 12/30/21 21:30 01/09/22 06:19 11.502 MLS/HR Sodium Bicarbonate 150 meq/Dextrose 1,150 ml @ 75 mls/hr [id number] 12/30/21 11:00 12/31/21 08:24 DC 12/31/21 03:04 75 MLS/HR Sodium Bicarbonate (Sodium Bicarb Adult 8.4% Syr) 50 meq STK-MED ONCE 12/30/21 20:00 01/01/22 13:17 DC Sodium Chloride 1,000 ml @ 75 mls/hr [id number] 12/31/21 08:30 01/01/22 10:39 DC 01/01/22 04:01 75 MLS/HR Succinylcholine Chloride (Anectine) 200 mg STK-MED ONCE 12/30/21 20:00 01/01/22 09:12 DC Vancomycin HCl (Vanco Per Pharmacy) 1 each PRN DAILY PRN 12/30/21 10:30 01/02/22 09:58 DC 01/01/22 12:42 1 EACH Vancomycin HCl (Vancomycin Trough Level) 1 each 1X ONCE 01/03/22 10:30 01/03/22 10:31 Cancel Vancomycin HCl 1.5 gm/Sodium Chloride 500 ml @ 250 mls/hr 1X ONCE 12/30/21 11:00 12/30/21 12:59 DC 12/30/21 10:51 250 MLS/HR Vancomycin HCl 1 gm/Sodium Chloride 250 ml @ 250 mls/hr Q36H 01/01/22 23:00 01/02/22 09:58 DC 01/01/22 22:52 250 MLS/HR Vecuronium [place] (Norcuron Bolus) 6 mg PRN 1X PRN 12/30/21 21:30 12/31/21 21:29 DC Vitamin D (Vitamin D3) 1,000 unit DAILY 12/25/21 10:00 01/09/22 08:37 1,000 UNIT Lab Laboratory Tests Test 01/08/22 11:36 01/08/22 17:51 01/09/22 00:33 01/09/22 04:55 Glucose (Fingerstick) 174 mg/dL (70-99) 171 mg/dL (70-99) 157 mg/dL (70-99) 177 mg/dL (70-99) Results All relevant outside records, renal labs, imaging studies, telemetry/EKG's were reviewed. Justicifation of Admission Dx: Justifications for Admission: Justification of Admission Dx: Yes Stroke - Ischemic: Stroke-Ischemic VIKA WEST MD Jan 09, 2022 11:05
--- NOTE | 2022-01-09 11:06 | PDOC ---
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 Acute respiratory failure requiring BiPAP support Concern for early sepsis Dehydration Metabolic acidosis Acute electrolyte derangement, hypernatremia and hyperchloremia-possible dehydration History hypertension History of diabetes diabetes History of Present Illness History of Present Illness 01/09/2022 Patient seen and examined in the ICU She remains on the ventilator AC/16/400/30 percent with 5 of PEEP Art line showing a pressure 150/63 Berumen bedside drainage PEG running at 30 cc an hour Still has a Cardene drip Sedated with propofol and fentanyl Chart reviewed Discussed with RN We are considering comfort care 01/08/2022 Patient seen and examined in the ICU She remains on the ventilator AC/16/400/30 percent with 5 of PEEP Discussed with GI nurse practitioner Discussed with RN Chart reviewed Patient's art line shows a pressure 168/62 Full to bedside drainage Sedated with propofol and fentanyl OG running at 30 cc an hour Still on Cardene drip 01/07/2020 Patient seen and examined in the ICU She remains on the ventilator AC/16/400/30 percent with 5 of PEEP Berumen to bedside drainage Art line in place with a pressure 149/61 PEG feeds running She is sedated with propofol fentanyl Also has a Cardene drip running She remains critically ill Discussed with RN Chart reviewed 01/06/2022 Patient seen and examined in the ICU She remains on the vent AC/16/400/30 percent with five of PEEP Has PEG feed running at 30 cc an hour Has Berumen to bedside drainage Zyvox hanging IV Sedated with propofol and fentanyl Has Cardene drip running Discussed with RN Chart reviewed She remains critically ill 01/05/2022 Patient seen and examined in the ICU again She remains on the vent AC/16/400/30 percent with 5 of PEEP Has her new PEG feeds running at 30 cc an hour Sedated with fentanyl Still requiring Cardene drip 01/04/2022 Patient seen and examined in the ICU She is on the vent AC/16/400/30 percent with 5 of PEEP (satting 100% and has a pH of 7.44) Art line in place Sedated with propofol and fentanyl PEG feed running at 30 cc an hour On Cardene drip but I discussed with RN working to titrate that off and start per PEG Norvasc Chart reviewed She remains critically ill 01/03/2022 Patient seen and examined in the ICU She remains on the vent AC/16/400/30 percent with 5 of PEEP Discussed with RN, the patient's urine output is a low Currently sedated with propofol Has IV Zosyn and IV Zyvox NG running at 30 cc an hour Has Berumen to bedside drainage ABIs are in place Art line appears clean dry intact and functioning well Chart reviewed She remains critically ill 01/02/2022 Patient seen and examined in the ICU She got her PEG yesterday but then apparently aspirated and had to be intubated Vent settings as follows AC/16/400/30 5% with 5 of PEEP Sedated with propofol fentanyl Has IV Zosyn hanging D5 water also hanging Creatinine bumped up a little bit (I called the pharmacy working to stop the Va nco and start Zyvox) Chart reviewed Discussed with RN She is critically ill 01/01/2022 Patient seen and examined in the ICU She remains on the vent AC/16/400/30 5% with 5 of PEEP Art line in place Sedated with propofol and fentanyl Has half-normal saline hanging with Zosyn Berumen to bedside drainage Chart reviewed Discussed with RN 12/31 Patient evaluated examined at bedside. She required intubation overnight and is currently intubated and sedated. Patient was intubated after family decided on continuing full treatment measures. Blood pressure improved. When seen patient unresponsive no withdrawal to pain. Pupils do still have reflex. Continue current. Nephrology pulmonology following. 45 minutes critical care time 12/30/2021 Rapid response called last night for desaturations down to the 70s. Labs were obtained showing hypernatremia. Patient still unresponsive and placed on BiPAP. ABG showed 7.1 7/40/74/14. Concern for aspiration, worsening of stroke, or dehydration. Nephrology and pulmonology consulted. Patient transferred to the ICU. Empiric IV antibiotics are started and blood cultures are obtained. D5 bicarb drip started. Patient's chart, labs, images were reviewed and discussed with RN 12/29/21 No acute events overnight. Patient seen examined bedside. Sleeping in bed and unable to be arousable with sternal rub or to voice. Patient unable to follow through with speech evaluation. Will need to consider TPN for nutrition. Medicaid application pending. Patient's chart, labs, images were reviewed and discussed with RN 12/28 Patient evaluated examined at bedside. She was sleeping in bed unable to get her to open her eyes even with sternal rub. Some withdrawal to pain in the right lower extremity none in right upper extremity. Unable to follow commands to see if she could hold her arm against gravity. Still having some trouble controlling blood pressure is still on Cardene drip for now. Will schedule Vasotec and try to start weaning off the Cardene drip. 12/27 Evaluated and examined at bedside. She was resting in bed not easily awoken and still cannot provide me really with any history given her aphasic state. She did have some withdrawal to pain in the right lower extremity still no movement and right upper. PT OT. Neuro following. Plan discussed bedside RN. 12/26 Evaluated and examined at bedside. Is a bit lethargic today difficulty staying awake this morning. MRI showing acute infarcts. Neurology continues to follow. Patient remains aphasic. Therapy modalities. Blood pressure control with IV until able to take oral Okay to transfer out of ICU to CVC if bed is needed Vitals/I&O Vitals/I&O: Vital Signs Date Time Temp Pulse Resp B/P (MAP) Pulse Ox O2 Delivery O2 Flow Rate FiO2 01/09/22 08:37 91 169/60 01/09/22 08:02 96 Ventilator 01/09/22 06:00 16 01/09/22 04:00 98.5 98.5 I & O 01/08/22 01/08/22 01/09/22 15:00 23:00 07:00 Intake Total 260 ml 1913 ml 1554 ml Output Total 395 ml 385 ml 275 ml Balance -135 ml 1528 ml 1279 ml Physical Exam General: Other (Sedated on the vent) Heart: Regular rate Lungs: Crackles Abdomen: Other (New PEG tube in place) Extremities: No clubbing Skin: No breakdown Labs Labs: Laboratory Tests Test 01/08/22 11:36 01/08/22 17:51 01/09/22 00:33 01/09/22 04:55 Glucose (Fingerstick) 174 mg/dL (70-99) 171 mg/dL (70-99) 157 mg/dL (70-99) 177 mg/dL (70-99) Assessment and Plan Assessmemt and Plan Assessmemt and Plan Stroke (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) Respiratory failure New PEG Expressive aphasia unilateral weakness secondary to 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 Resolving sepsis Dehydration Hyponatremia Hypokalemia Hypomagnesemia Metabolic acidosis Acute electrolyte derangement, hypernatremia and hyperchloremia-possible dehydration History hypertension History of diabetes diabetes Plan We are considering going to comfort care if family would agree For now continue the following; ICU monitoring Vent weaning Still trying to wean off the Cardene drip Continue sedation with propofol fentanyl Monitor art line Maintain Berumen Continue PEG feeds Follow cultures Appreciate subspecialist input (nephrology gastroenterology neurology and pulmonary medicine) Trend labs Statins Aspirin DVT prophylaxis with [place] DNR Sliding-scale insulin Prognosis extremely guarded at best CC time 31 minutes Comment Review of Relevant I have reviewed the following items chino (where applicable) has been applied. Justifications for Admission TIA Indications Persistent neurologic signs?: Yes Justification for admission: There is persistence of patient's focal neurologic signs or symptoms or there is concern for recurrence of patient's neurological signs and symptoms. Severe hypertension?: Yes Justification for admission: There is concern for patient's severe hypertension of (>180/110mmHg--please indicate patient's BP here) that has not been controlled by ED treatment. Patient needs inpatient level of care for further evaluation and management. Other Justification JAGDISH ONEIL III DO Jan 09, 2022 11:06
[2022-01-09] MEDS: LABETALOL 20 MG/4 ML DISP.SYRIN. IVP PRN (11:09)
[2022-01-09] MEDS: LANSOPRAZOLE 30 MG TAB.RAP.DR FT SCH (12:24)
[2022-01-09] MEDS: NICOTINE 21MG PATCH. TD SCH (12:29)
--- NOTE | 2022-01-09 15:36 | NUR ---
SS following up with discharge planning. SS reviewed pt chart and discussed with pt RN. Pt is currently on the vent at 30%. Pt on Cardene, Propofol, and Fentanyl. Physicians discussing goals of care with pt's family. Not ready. Self pay. Med Assist following. SS will continue to follow for discharge planning.
--- NOTE | 2022-01-09 19:55 | PDOC ---
PROGRESS NOTES Date of Service DATE: 01/09/22 TIME: 19:51 Assessment Patient is a 51-year-old woman who has suffered bilateral thalamic stroke. She has remained intubated and ventilated without showing any improvement. Her examination is severely impaired. She will open her eyes with stimulation. She is not brain . She does not follow command or look up to command. She has been this way for 17 days. Chance of meaningful neurologic recovery is extremely poor. Plan I would support fully the family's decision to switch to comfort rather than restorative care. Subjective Nonverbal Objective Vital Signs Date Time Temp Pulse Resp B/P (MAP) Pulse Ox O2 Delivery O2 Flow Rate FiO2 01/09/22 18:00 82 160/63 01/09/22 17:27 98 Ventilator 01/09/22 15:00 97.1 16 97.1 01/09/22 13:46 15.0 Intake and Output 01/09/22 07:00 Intake Total 3727 ml Output Total 1055 ml Balance 2672 ml IV Total 1356 ml Tube Feeding 1459 ml Other 912 ml Output Urine Total 1055 ml PHYSICAL EXAM She was intubated and ventilated. She was on propofol and fentanyl. With stimulation after a delay she would open her eyes. There was no focus. The eyes were disconjugate. She did not respond to visual threat or loud clap. She did not look up to command or follow any command. Tone was flaccid in the arms. Toes were upgoing in the legs. The legs were spastic. She did not respond to nailbed pressure in the upper extremities. Oculocephalic reflex was partially present. Review of Relevant I have reviewed the following items chino (where applicable) has been applied. Labs Laboratory Tests Test 01/07/22 23:53 01/08/22 05:25 01/08/22 05:26 01/08/22 07:45 Glucose (Fingerstick) 185 mg/dL (70-99) 165 mg/dL (70-99) Sodium Level 137 mmol/L (136-145) Potassium Level 3.8 mmol/L (3.5-5.1) Chloride Level 102 mmol/L (98-107) Carbon Dioxide Level 24 mmol/L (21-32) Anion Gap 11 (6-14) Blood Urea Nitrogen 35 mg/dL (7-20) Creatinine 2.1 mg/dL (0.6-1.0) Estimated GFR (Cockcroft-Gault) 24.6 Glucose Level 181 mg/dL (70-99) Calcium Level 8.7 mg/dL (8.5-10.1) Phosphorus Level 5.2 mg/dL (2.6-4.7) Albumin 1.3 g/dL (3.4-5.0) Triglycerides Level 261 mg/dL (0-150) O2 Saturation 93 % (92-99) Arterial Blood pH 7.41 (7.35-7.45) Arterial Blood pCO2 at Patient Temp 37 mmHg (35-46) Arterial Blood pO2 at Patient Temp 68 mmHg (75-108) Arterial Blood HCO3 23 mmol/L (21-28) Arterial Blood Base Excess -1 mmol/L (-3-3) FiO2 30 Test 01/08/22 11:36 01/08/22 17:51 01/09/22 00:33 01/09/22 04:55 Glucose (Fingerstick) 174 mg/dL (70-99) 171 mg/dL (70-99) 157 mg/dL (70-99) 177 mg/dL (70-99) Test 01/09/22 18:57 Glucose (Fingerstick) 177 mg/dL (70-99) Laboratory Tests Test 01/09/22 00:33 01/09/22 04:55 01/09/22 18:57 Glucose (Fingerstick) 157 mg/dL (70-99) 177 mg/dL (70-99) 177 mg/dL (70-99) Microbiology 12/30/21 Blood Culture - Final, Complete NO GROWTH AFTER 5 DAYS Medications Current Medications Hydralazine HCl (Apresoline Inj) 10 mg PRN Q4HRS PRN IVP ELEVATED BP, SEE COMMENTS Last administered on 01/08/22at 11:39; Start 12/24/21 at 20:15 Acetaminophen (Tylenol) 650 mg PRN Q6HRS PRN PO MILD PAIN / TEMP > 100.3'F; Start 12/24/21 at 20:15 Ondansetron HCl (Zofran) 4 mg PRN Q4HRS PRN IVP NAUSEA/VOMITING; Start 12/24/21 at 20:15 Olanzapine (ZyPREXA ZYDIS) 5 mg PRN BID PRN PO ANXIETY / AGITATION Last administered on 12/24/21at 22:49; Start 12/24/21 at 20:15 Bisacodyl (Dulcolax Supp) 10 mg PRN DAILY PRN SC CONSTIPATION; Start 12/24/21 at 20:15 Nicardipine HCl 50 mg/Sodium Chloride 250 ml @ 25 mls/hr CONT PRN PRN IV PER PROTOCOL Last administered on 12/27/21at 15:42; Start 12/24/21 at 20:15; Stop 12/30/21 at 19:39; Status DC Atorvastatin Calcium (Lipitor) 80 mg QHS PO Last administered on 01/08/22at 22:03; Start 12/24/21 at 21:00 Acetaminophen (Tylenol) 650 mg PRN Q6HRS PRN PO MILD PAIN / TEMP > 100.3'F; Start 12/24/21 at 20:15; Stop 12/24/21 at 20:17; Status DC Bisacodyl (Dulcolax Supp) 10 mg PRN DAILY PRN SC CONSTIPATION; Start 12/24/21 at 20:15; Status UNV Famotidine (Pepcid Vial) 20 mg BID IVP Last administered on 12/26/21at 08:38; Start 12/24/21 at 21:00; Stop 12/26/21 at 08:51; Status DC Aspirin (Aspirin Rectal Supp) 300 mg PRN DAILY PRN SC IF UNABLE TO TAKE PO Last administered on 12/29/21at 10:28; Start 12/24/21 at 20:15; Stop 01/04/22 at 09:57; Status DC Acetaminophen (Tylenol Supp) 650 mg PRN Q6HRS PRN SC MILD PAIN / TEMP > 100.3'F; Start 12/24/21 at 20:15 Insulin Human Lispro (HumaLOG) 0-9 UNITS Q6HRS SQ Last administered on 01/09/22at 19:01; Start 12/25/21 at 00:00 Dextrose (Dextrose 50%-Water Syringe) 12.5 gm PRN Q15MIN PRN IV SEE COMMENTS; Start 12/24/21 at 20:15 Dextrose (Iv Dextrose 5%) 250 ml PRN Q15MIN PRN IV SEE COMMENTS; Start 12/24/21 at 20:15 Potassium Chloride/Water 100 ml @ 100 mls/hr Q1H IV ; Start 12/25/21 at 09:00; Stop 12/25/21 at 10:59; Status UNV Potassium Chloride/Water 100 ml @ 100 mls/hr Q1H IV Last administered on 12/25/21at 13:16; Start 12/25/21 at 09:00; Stop 12/25/21 at 12:59; Status DC Cetirizine HCl (ZyrTEC) 10 mg DAILY PO Last administered on 01/09/22at 12:27; Start 12/25/21 at 10:00 Vitamin D (Vitamin D3) 1,000 unit DAILY PO Last administered on 01/09/22at 08:37; Start 12/25/21 at 10:00 Montelukast Sodium (Singulair) 10 mg DAILY PO Last administered on 01/09/22at 0 9:00; Start 12/25/21 at 10:00 Losartan Potassium (Cozaar) 100 mg DAILY PO ; Start 12/25/21 at 10:00; Stop 12/31/21 at 14:46; Status DC Pantoprazole Sodium (Protonix) 40 mg DAILYAC PO ; Start 12/25/21 at 11:30; Stop 12/29/21 at 12:07; Status DC Lorazepam (Ativan Inj) 2 mg PRN Q4HRS PRN IVP ANXIETY / AGITATION Last administered on 12/29/21at 20:16; Start 12/25/21 at 10:00 Hydrochlorothiazide (Hydrodiuril) 25 mg DAILY PO ; Start 12/25/21 at 10:00; Stop 12/31/21 at 14:47; Status DC Sodium Chloride 1,000 ml @ 50 mls/hr Q20H IV Last administered on 12/29/21at 08:14; Start 12/25/21 at 17:00; Stop 12/30/21 at 10:35; Status DC Famotidine (Pepcid Vial) 20 mg DAILY IVP Last administered on 01/05/22at 08:09; Start 12/27/21 at 09:00; Stop 01/05/22 at 10:49; Status DC Labetalol HCl (Normodyne Iv Push) 10 mg PRN Q2HR PRN IVP HYPERTENSION (1ST) Last administered on 01/09/22at 11:09; Start 12/26/21 at 13:15 Heparin Sodium (Porcine) (Heparin Sodium) 5,000 unit Q8HRS SQ Last administered on 01/03/22at 06:22; Start 12/26/21 at 14:00; Stop 01/03/22 at 13:39; Status DC Labetalol HCl (Normodyne Iv Push) 20 mg PRN Q2HR PRN IVP HYPERTENSION (1ST) Last administered on 01/05/22at 22:17; Start 12/26/21 at 13:30 Clonidine HCl (Catapres Tts-2) 1 patch WEEKLY TD Last administered on 01/09/22at 09:00; Start 12/26/21 at 15:00 Nicotine (Nicoderm Cq 21mg) 1 patch DAILY TD Last administered on 01/09/22at 12:29; Start 12/26/21 at 15:00 Nitroglycerin (Nitro-Bid Oint) 1 inch Q6HRS TP Last administered on 01/09/22at 18:00; Start 12/26/21 at 18:00 Enalaprilat (Vasotec Inj) 1.25 mg Q6HRS IVP Last administered on 12/30/21at 12:54; Start 12/28/21 at 12:00; Stop 12/31/21 at 14:47; Status DC Cefazolin Sodium (Ancef) 1 gm 1X ONCE IVP ; Start 01/01/22 at 13:30; Stop 01/01/22 at 08:01; Status DC Albuterol Sulfate (Ventolin Neb Soln) 2.5 mg RTQID NEB Last administered on 12/30/21at 07:30; Start 12/30/21 at 08:00; Stop 12/30/21 at 11:22; Status DC Albuterol Sulfate (Ventolin Neb Soln) 2.5 mg PRN Q4HRS PRN NEB SHORTNESS OF BREATH Last administered on 12/30/21at 01:55; Start 12/30/21 at 02:00 Piperacillin Sod/ Tazobactam Sod (Zosyn Per Pharmacy) 1 each PRN DAILY PRN MC SEE COMMENTS; Start 12/30/21 at 04:30; Stop 01/06/22 at 14:34; Status DC Potassium Chloride/Water 100 ml @ 100 mls/hr Q1H IV Last administered on at 09:25; Start 12/30/21 at 05:00; Stop 12/30/21 at 08:59; Status DC Piperacillin Sod/ Tazobactam Sod 3.375 gm/Sodium Chloride 50 ml @ 100 mls/hr Q6HRS IV Last administered on 01/06/22at 12:13; Start 12/30/21 at 06:00; Stop 01/06/22 at 14:33; Status DC Sodium Chloride 1,000 ml @ 75 mls/hr [id number] IV ; Start 12/30/21 at 08:30; Stop 12/30/21 at 11:22; Status DC Sodium Bicarbonate (Sodium Bicarb Adult 8.4% Syr) 50 meq 1X ONCE IV Last administered on 12/30/21at 08:30; Start 12/30/21 at 08:30; Stop 12/30/21 at 08:40; Status DC Albuterol/ Ipratropium (Duoneb) 3 ml RTQID NEB Last administered on 01/09/22at 15:33; Start 12/30/21 at 12:00 Vancomycin HCl (Vanco Per Pharmacy) 1 each PRN DAILY PRN MC SEE COMMENTS Last administered on 01/01/22at 12:42; Start 12/30/21 at 10:30; Stop 01/02/22 at 09:58; Status DC Sodium Bicarbonate (Sodium Bicarb Adult 8.4% Syr) 50 meq 1X ONCE IV Last administered on 12/30/21at 11:10; Start 12/30/21 at 10:30; Stop 12/30/21 at 10:34; Status DC Vancomycin HCl 1.5 gm/Sodium Chloride 500 ml @ 250 mls/hr 1X ONCE IV Last administered on 12/30/21at 10:51; Start 12/30/21 at 11:00; Stop 12/30/21 at 12:59; Status DC Sodium Bicarbonate 150 meq/Dextrose 1,150 ml @ 75 mls/hr [id number] IV Last administered on 12/31/21at 03:04; Start 12/30/21 at 11:00; Stop 12/31/21 at 08:24; Status DC Aspirin (Aspirin Rectal Supp) 300 mg DAILY SC Last administered on 01/02/22at 0 9:42; Start 12/30/21 at 11:00; Stop 01/02/22 at 15:08; Status DC Vancomycin HCl 1 gm/Sodium Chloride 250 ml @ 250 mls/hr Q24H IV Last administered on 12/31/21at 11:19; Start 12/31/21 at 11:00; Stop 01/01/22 at 11:42; Status DC Vancomycin HCl (Vancomycin Trough Level) 1 each 1X ONCE MC Last administered on 01/01/22at 10:30; Start 01/01/22 at 10:30; Stop 01/01/22 at 10:31; Status DC Lactobacillus Rhamnosus (Culturelle) 1 cap BID PO ; Start 12/30/21 at 21:00; Stop 01/02/22 at 07:33; Status DC Furosemide (Lasix) 40 mg 1X ONCE IVP Last administered on 12/30/21at 18:04; Start 12/30/21 at 17:45; Stop 12/30/21 at 17:46; Status DC Diltiazem HCl 125 mg/Sodium Chloride 125 ml @ 5 mls/hr CONT PRN IV PER PROTOCOL; Start 12/30/21 at 18:15; Stop 12/30/21 at 19:20; Status DC Furosemide (Lasix) 40 mg 1X ONCE IVP Last administered on 12/30/21at 22:24; Start 12/30/21 at 19:30; Stop 12/30/21 at 19:38; Status DC Nicardipine HCl 50 mg/Sodium Chloride 250 ml @ 12.5 mls/hr CONT PRN IV PER PROTOCOL Last administered on 01/09/22at 12:19; Start 12/30/21 at 19:30 Succinylcholine Chloride (Anectine) 200 mg STK-MED ONCE .ROUTE ; Start 12/30/21 at 19:49; Stop 12/30/21 at 19:49; Status DC Etomidate (Amidate) 20 mg STK-MED ONCE IV ; Start 12/30/21 at 19:49; Stop 12/30/21 at 19:49; Status DC Fentanyl Citrate 30 ml @ 0 mls/hr CONT PRN IV SEE PROTOCOL Last administered on 01/09/22at 13:16; Start 12/30/21 at 21:30 Midazolam HCl 100 ml @ 1 mls/hr CONT PRN IV SEE PROTOCOL; Start 12/30/21 at 21:30 Propofol 100 ml @ 1.917 mls/ hr CONT PRN IV PER PROTOCOL Last administered on 01/09/22at 12:26; Start 12/30/21 at 21:30 Vecuronium [place] (Norcuron Bolus) 6 mg PRN 1X PRN IV VENT INDUCTION; Start 12/30/21 at 21:30; Stop 12/31/21 at 21:29; Status DC Chlorhexidine Gluconate (Peridex) 15 ml BID MM Last administered on 01/05/22at 20:43; Start 12/31/21 at 09:00; Stop 01/06/22 at 17:10; Status DC Glycerin/ Hypromellose/ Polyethylene (Artificial Tears) 1 drop PRN Q1HR PRN OU DRY EYE Last administered on 01/06/22at 18:08; Start 12/30/21 at 21:30 Dexmedetomidine HCl 400 mcg/ Sodium Chloride 100 ml @ 3.195 mls/ hr CONT PRN IV PER PROTOCOL; Start 12/30/21 at 21:30 Midazolam HCl (Versed) 5 mg PRN 1X PRN IVP VENT INDUCTION; Start 12/30/21 at 21:30; Stop 12/31/21 at 21:29; Status DC Sodium Chloride 500 ml @ 500 mls/hr 1X PRN PRN IV SEE COMMENTS Last administered on 01/09/22at 14:07; Start 12/30/21 at 21:30 Atropine Sulfate (ATROPINE 0.5mg SYRINGE) 0.5 mg PRN Q5MIN PRN IV SEE COMMENTS; Start 12/30/21 at 21:30 Sodium Chloride 1,000 ml @ 75 mls/hr [id number] IV Last administered on 01/01/22at 04:01; Start 12/31/21 at 08:30; Stop 01/01/22 at 10:39; Status DC Potassium Bicarbonate (Potassium Effervescent Tablet) 40 meq 1X ONCE PEG Last administered on 12/31/21at 09:07; Start 12/31/21 at 08:30; Stop 12/31/21 at 08:31; Status DC Magnesium Sulfate 50 ml @ 25 mls/hr 1X ONCE IV Last administered on 12/31/21at 09:06; Start 12/31/21 at 08:30; Stop 12/31/21 at 10:29; Status DC Etomidate (Amidate) 20 mg STK-MED ONCE IV ; Start 12/30/21 at 20:00; Stop 01/01/22 at 09:12; Status DC Succinylcholine Chloride (Anectine) 200 mg STK-MED ONCE .ROUTE ; Start 12/30/21 at 20:00; Stop 01/01/22 at 09:12; Status DC Dextrose 1,000 ml @ 75 mls/hr [id number] IV Last administered on 01/02/22at 05:15; Start 01/01/22 at 10:45; Stop 01/02/22 at 16:48; Status DC Vancomycin HCl 1 gm/Sodium Chloride 250 ml @ 250 mls/hr Q36H IV Last administered on 01/01/22at 22:52; Start 01/01/22 at 23:00; Stop 01/02/22 at 09:58; Status DC Vancomycin HCl (Vancomycin Trough Level) 1 each 1X ONCE MC ; Start 01/03/22 at 10:30; Stop 01/03/22 at 10:31; Status Cancel Sodium Bicarbonate (Sodium Bicarb Adult 8.4% Syr) 50 meq STK-MED ONCE .ROUTE ; Start 12/30/21 at 20:00; Stop 01/01/22 at 13:17; Status DC Magnesium Sulfate/ Dextrose (Magnesium Sulfate PREMIX 1GM) 1 gm STK-MED ONCE IV ; Start 12/30/21 at 20:00; Stop 01/01/22 at 13:17; Status DC Epinephrine HCl (EPINEPHrine SYRINGE) 3 mg STK-MED ONCE .ROUTE ; Start 12/30/21 at 20:00; Stop 01/01/22 at 13:17; Status DC Amiodarone HCl (Cordarone) 300 mg STK-MED ONCE .ROUTE ; Start 12/30/21 at 20:00; Stop 01/01/22 at 13:17; Status DC Furosemide (Lasix) 80 mg 1X ONCE IVP Last administered on 01/02/22at 09:41; Start 01/02/22 at 09:30; Stop 01/02/22 at 09:31; Status DC Potassium Bicarbonate (Potassium Effervescent Tablet) 40 meq 1X ONCE PEG Last administered on 01/02/22at 09:40; Start 01/02/22 at 09:30; Stop 01/02/22 at 09:31; Status DC Linezolid/Dextrose 300 ml @ 300 mls/hr Q12HR IV Last administered on 01/06/22at 09:30; Start 01/02/22 at 21:00; Stop 01/06/22 at 14:33; Status DC Aspirin (Aspirin Chewable) 162 mg [id number] PO Last administered on 01/09/22at 08:36; Start 01/03/22 at 08:00 Potassium Bicarbonate (Potassium Effervescent Tablet) 40 meq 1X ONCE PEG Last administered on 01/02/22at 17:54; Start 01/02/22 at 17:45; Stop 01/02/22 at 17:47; Status DC Potassium Chloride/Water 100 ml @ 100 mls/hr Q1H IV Last administered on at 11:53; Start 01/03/22 at 09:00; Stop 01/03/22 at 12:59; Status DC Heparin Sodium (Porcine) (Heparin Sodium) 5,000 unit Q8HRS SQ Last administered on 01/09/22at 14:19; Start 01/03/22 at 14:00 Amlodipine Besylate (Norvasc) 10 mg DAILY PEG Last administered on 01/09/22at 08:37; Start 01/04/22 at 10:00 Potassium Chloride/Water 100 ml @ 100 mls/hr Q1H IV Last administered on 12/19 07/09at 08:35; Start 01/05/22 at 08:00; Stop 01/05/22 at 09:59; Status DC Lansoprazole (Prevacid) 30 mg DAILY FT Last administered on 01/09/22at 12:24; Start 01/06/22 at 07:30 Furosemide (Lasix) 80 mg 1X ONCE IVP Last administered on 01/05/22at 14:26; St art 01/05/22 at 13:00; Stop 01/05/22 at 13:01; Status DC Active Scripts Active Reported Montelukast Sodium 10 Mg Tablet 1 Tab PO DAILY Stool Softener (Docusate Sodium) 50 Mg Capsule 50 Mg PO BID [place] 5-325 Tablet (Acetaminophen/Hydrocodone Bitart) 1 Each Tablet 1 Tab PO Q4HRS LAST DOSE GIVEN: Lantus Solostar (Insulin Glargine,Hum.rec.anlog) 100 Unit/1 Ml Insuln.pen 21 Unit SQ QHS Culturelle (Lactobacillus Rhamnosus Gg) 1 Each Capsule 1 Each PO DAILY Alive Once Daily Women 50 Plus (Mv-Mn/Folic Acid/Vit [id number]) 1 Each Tablet 1 Each PO DAILY [place] 5-325 Tablet (Acetaminophen/Hydrocodone Bitart) 1 Each Tablet 1 Tab PO PRN Q6HRS PRN Tizanidine Hcl 4 Mg Tablet 2 Tab PO TID PRN Proair Hfa Inhaler (Albuterol Sulfate) 8.5 Gm Hfa.aer.ad 1 Puff INH PRN Q6HRS PRN Montelukast Sodium Tablet (Montelukast Sodium) 10 Mg Tablet 1 Tab PO DAILY Losartan-Hctz 100-25 Mg Tab (Losartan/Hydrochlorothiazide) 1 Each Tablet 1 Tab PO DAILY Protonix (Pantoprazole Sodium) 20 Mg Tablet.dr 1 Tab PO DAILY Vitamin D3 (Cholecalciferol (Vitamin D3)) 1,000 Unit Tablet 1 Tab PO DAILY Cetirizine Hcl 10 Mg Tablet 1 Tab PO DAILY Janumet 50-1,000 Mg Tablet (Sitagliptin Phos/Metformin Hcl) 1 Each Tablet 1 Tab PO BID Vitals/I & O Vital Sign - Last 24 Hours 01/08/22 01/08/22 01/08/22 01/08/22 20:00 20:00 20:00 20:20 Temp 98.8 98.8 Pulse 72 82 Resp 18 B/P (MAP) 112/68 134/57 (82) Pulse Ox 100 99 O2 Delivery Ventilator Mechanical Ventilator Ventilator 01/08/22 01/08/22 01/08/22 01/08/22 21:00 22:00 23:00 23:35 Pulse 73 67 76 Resp 15 15 14 B/P (MAP) 116/67 138/72 126/52 Pulse Ox 100 100 100 97 O2 Delivery Ventilator Ventilator Ventilator Ventilator 01/09/22 01/09/22 01/09/22 01/09/22 00:00 00:00 00:57 01:00 Temp 98.1 98.1 Pulse 78 96 95 72 Resp 15 15 B/P (MAP) 140/80 (100) 172/66 156/61 134/52 Pulse Ox 100 100 O2 Delivery Ventilator Ventilator 01/09/22 01/09/22 01/09/22 01/09/22 02:00 02:11 02:41 02:45 Pulse 76 Resp 16 16 18 B/P (MAP) 128/50 Pulse Ox 100 97 99 97 O2 Delivery Ventilator Ventilator Ventilator 01/09/22 01/09/22 01/09/22 01/09/22 03:00 04:00 04:00 05:00 Temp 98.5 98.5 Pulse 80 81 92 83 Resp 16 15 16 B/P (MAP) 132/52 143/59 136/74 (94) 132/58 Pulse Ox 100 97 98 O2 Delivery Ventilator Ventilator Ventilator 01/09/22 01/09/22 01/09/22 01/09/22 05:42 06:00 06:17 07:00 Pulse 84 79 80 Resp 16 16 B/P (MAP) 141/52 132/56 154/62 Pulse Ox 97 98 O2 Delivery Ventilator Ventilator Ventilator 01/09/22 01/09/22 01/09/22 01/09/22 08:00 08:00 08:00 08:02 Temp 97.8 97.8 Pulse 97 82 Resp 16 B/P (MAP) 188/66 134/57 (82) Pulse Ox 96 O2 Delivery Ventilator Mechanical Ventilator Ventilator 01/09/22 01/09/22 01/09/22 01/09/22 08:37 09:00 10:00 11:00 Pulse 91 94 90 86 Resp 16 16 16 B/P (MAP) 169/60 168/60 166/64 158/62 O2 Delivery Ventilator Ventilator Ventilator 01/09/22 01/09/22 01/09/22 01/09/22 11:05 11:09 12:00 12:00 Temp 98.0 98.0 Pulse 112 86 86 Resp 16 B/P (MAP) 203/110 162/70 162/70 (100) Pulse Ox 98 O2 Delivery Ventilator Ventilator 01/09/22 01/09/22 01/09/22 01/09/22 13:00 13:11 13:16 13:46 Pulse 84 95 Resp 16 16 B/P (MAP) 138/65 159/66 Pulse Ox 99 30 30 O2 Delivery Ventilator Ventilator O2 Flow Rate 15.0 01/09/22 01/09/22 01/09/22 01/09/22 14:00 15:00 15:33 17:27 Temp 97.1 97.1 Pulse 88 88 Resp 16 16 B/P (MAP) 152/66 164/70 Pulse Ox 93 95 98 98 O2 Delivery Ventilator Ventilator Ventilator Ventilator 01/09/22 18:00 Pulse 82 B/P (MAP) 160/63 Intake and Output 01/08/22 01/08/22 01/09/22 15:00 23:00 07:00 Intake Total 260 ml 1913 ml 1554 ml Output Total 395 ml 385 ml 275 ml Balance -135 ml 1528 ml 1279 ml Justicifation of Admission Dx: Justifications for Admission: Justification of Admission Dx: Yes Stroke - Ischemic: Stroke-Ischemic NATY MANCILLA MD Jan 09, 2022 19:54
[2022-01-09] MEDS: ATORVASTATIN CALCIUM 40 MG TABLET. PO SCH (20:38)
[2022-01-10] VITALS (17 sets, daily range): BP systolic 98–199; BP diastolic 58–104
[2022-01-10] MEDS: NITROGLYCERIN OINT 1 GM PACKET. TP SCH ×3 (06:04→18:07)
[2022-01-10] MEDS: HEPARIN for SUB-Q USE 5,000 UNIT/ML VIAL. SQ SCH ×3 (06:05→21:42)
[2022-01-10] MEDS: INSULIN LISPRO 300 UNITS/3 ML VIAL. SQ SCH ×3 (06:06→18:16)
[2022-01-10] MEDS: PROPOFOL 100 ML IV PRN ×2 (06:36→11:53)
[2022-01-10] MEDS: IPRATRPIUM/ALBUTEROL 0.5/2.5MG 3 ML NEBU. NEB SCH ×4 (08:11→20:00)
--- NOTE | 2022-01-10 08:49 | PDOC ---
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 Acute respiratory failure requiring BiPAP support Concern for early sepsis Dehydration Metabolic acidosis Acute electrolyte derangement, hypernatremia and hyperchloremia-possible dehydration History hypertension History of diabetes diabetes History of Present Illness History of Present Illness 01/10/2022 Patient seen and examined in the ICU She remains on the ventilator AC/16/400/30 percent with 5 of PEEP Rectal bag now in place Berumen to bedside drainage Art line in place with pressure 169/64 Has fentanyl propofol Cardene and maintenance IV hanging OG feed running at 30 cc an hour Discussed with RN Chart reviewed 01/09/2022 Patient seen and examined in the ICU She remains on the ventilator AC/16/400/30 percent with 5 of PEEP Art line showing a pressure 150/63 Berumen bedside drainage PEG running at 30 cc an hour Still has a Cardene drip Sedated with propofol and fentanyl Chart reviewed Discussed with RN We are considering comfort care 01/08/2022 Patient seen and examined in the ICU She remains on the ventilator AC/16/400/30 percent with 5 of PEEP Discussed with GI nurse practitioner Discussed with RN Chart reviewed Patient's art line shows a pressure 168/62 Full to bedside drainage Sedated with propofol and fentanyl OG running at 30 cc an hour Still on Cardene drip 01/07/2020 Patient seen and examined in the ICU She remains on the ventilator AC/16/400/30 percent with 5 of PEEP Berumen to bedside drainage Art line in place with a pressure 149/61 PEG feeds running She is sedated with propofol fentanyl Also has a Cardene drip running She remains critically ill Discussed with RN Chart reviewed 01/06/2022 Patient seen and examined in the ICU She remains on the vent AC/16/400/30 percent with five of PEEP Has PEG feed running at 30 cc an hour Has Berumen to bedside drainage Zyvox hanging IV Sedated with propofol and fentanyl Has Cardene drip running Discussed with RN Chart reviewed She remains critically ill 01/05/2022 Patient seen and examined in the ICU again She remains on the vent AC/16/400/30 percent with 5 of PEEP Has her new PEG feeds running at 30 cc an hour Sedated with fentanyl Still requiring Cardene drip 01/04/2022 Patient seen and examined in the ICU She is on the vent AC/16/400/30 percent with 5 of PEEP (satting 100% and has a pH of 7.44) Art line in place Sedated with propofol and fentanyl PEG feed running at 30 cc an hour On Cardene drip but I discussed with RN working to titrate that off and start per PEG Norvasc Chart reviewed She remains critically ill 01/03/2022 Patient seen and examined in the ICU She remains on the vent AC/16/400/30 percent with 5 of PEEP Discussed with RN, the patient's urine output is a low Currently sedated with propofol Has IV Zosyn and IV Zyvox NG running at 30 cc an hour Has Berumen to bedside drainage ABIs are in place Art line appears clean dry intact and functioning well Chart reviewed She remains critically ill 01/02/2022 Patient seen and examined in the ICU She got her PEG yesterday but then apparently aspirated and had to be intubated Vent settings as follows AC/16/400/30 5% with 5 of PEEP Sedated with propofol fentanyl Has IV Zosyn hanging D5 water also hanging Creatinine bumped up a little bit (I called the pharmacy working to stop the Vanco and start Zyvox) Chart reviewed Discussed with RN She is critically ill 01/01/2022 Patient seen and examined in the ICU She remains on the vent AC/16/400/30 5% with 5 of PEEP Art line in place Sedated with propofol and fentanyl Has half-normal saline hanging with Zosyn Berumen to bedside drainage Chart reviewed Discussed with RN 12/31 Patient evaluated examined at bedside. She required intubation overnight and is currently intubated and sedated. Patient was intubated after family decided on continuing full treatment measures. Blood pressure improved. When seen patient unresponsive no withdrawal to pain. Pupils do still have reflex. Continue current. Nephrology pulmonology following. 45 minutes critical care time 12/30/2021 Rapid response called last night for desaturations down to the 70s. Labs were obtained showing hypernatremia. Patient still unresponsive and placed on BiPAP. ABG showed 7.1 7/40/74/14. Concern for aspiration, worsening of stroke, or dehydration. Nephrology and pulmonology consulted. Patient transferred to the ICU. Empiric IV antibiotics are started and blood cultures are obtained. D5 bicarb drip started. Patient's chart, labs, images were reviewed and discussed with RN 12/29/21 No acute events overnight. Patient seen examined bedside. Sleeping in bed and unable to be arousable with sternal rub or to voice. Patient unable to follow through with speech evaluation. Will need to consider TPN for nutrition. Medicaid application pending. Patient's chart, labs, images were reviewed and discussed with RN 12/28 Patient evaluated examined at bedside. She was sleeping in bed unable to get her to open her eyes even with sternal rub. Some withdrawal to pain in the right lower extremity none in right upper extremity. Unable to follow commands to see if she could hold her arm against gravity. Still having some trouble controlling blood pressure is still on Cardene drip for now. Will schedule Vasotec and try to start weaning off the Cardene drip. 12/27 Evaluated and examined at bedside. She was resting in bed not easily awoken and still cannot provide me really with any history given her aphasic state. She did have some withdrawal to pain in the right lower extremity still no movement and right upper. PT OT. Neuro following. Plan discussed bedside RN. 12/26 Evaluated and examined at bedside. Is a bit lethargic today difficulty staying awake this morning. MRI showing acute infarcts. Neurology continues to follow. Patient remains aphasic. Therapy modalities. Blood pressure control with IV until able to take oral Okay to transfer out of ICU to CVC if bed is needed Vitals/I&O Vitals/I&O: Vital Signs Date Time Temp Pulse Resp B/P (MAP) Pulse Ox O2 Delivery O2 Flow Rate FiO2 01/10/22 08:12 92 Ventilator 01/10/22 06:04 84 149/60 01/10/22 06:00 14 01/10/22 04:00 98.1 98.1 01/09/22 13:46 15.0 I & O 01/09/22 01/09/22 01/10/22 15:00 23:00 07:00 Intake Total 260 ml 130 ml 1506 ml Output Total 350 ml 225 ml 350 ml Balance -90 ml -95 ml 1156 ml Physical Exam General: Other (Sedated on the vent) Heart: Regular rate Lungs: Crackles Abdomen: Other (New PEG tube in place) Extremities: No clubbing Skin: No breakdown Labs Labs: Laboratory Tests Test 01/09/22 18:57 01/09/22 23:22 Glucose (Fingerstick) 177 mg/dL (70-99) 153 mg/dL (70-99) Assessment and Plan Assessmemt and Plan Stroke (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) Respiratory failure New PEG Expressive aphasia unilateral weakness secondary to 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 Resolving sepsis Dehydration Hyponatremia Hypokalemia Hypomagnesemia Metabolic acidosis Acute electrolyte derangement, hypernatremia and hyperchloremia-possible dehydration History hypertension History of diabetes diabetes Plan We are considering going to comfort care if family would agree For now continue the following; ICU monitoring Vent weaning Still trying to wean off the Cardene drip Continue sedation with propofol fentanyl Monitor art line Maintain Berumen Continue PEG feeds Follow cultures Appreciate subspecialist input (nephrology gastroenterology neurology and pulmonary medicine) Trend labs Statins Aspirin DVT prophylaxis with Tacos DNR Sliding-scale insulin Prognosis extremely guarded at best CC time 33 minutes Comment Review of Relevant I have reviewed the following items chino (where applicable) has been applied. Justifications for Admission TIA Indications Persistent neurologic signs?: Yes Justification for admission: There is persistence of patient's focal neurologic signs or symptoms or there is concern for recurrence of patient's neurological signs and symptoms. Severe hypertension?: Yes Justification for admission: There is concern for patient's severe hypertension of (>180/110mmHg--please indicate patient's BP here) that has not been controlled by ED treatment. Patient needs inpatient level of care for further evaluation and management. Other Justification JAGDISH ONEIL III DO Jan 10, 2022 08:49
[2022-01-10] MEDS: NICOTINE 21MG PATCH. TD SCH (09:00)
--- NOTE | 2022-01-10 10:11 | PDOC ---
Date of Service: DATE: 01/10/22 TIME: 10:10 Objective: Objective: No GI concerns per nurse, family to decide what to do moving forward by Saturday? Vital Signs: Vital Signs Date Time Temp Pulse Resp B/P (MAP) Pulse Ox O2 Delivery O2 Flow Rate FiO2 01/10/22 08:12 92 Ventilator 01/10/22 06:04 84 149/60 01/10/22 06:00 14 01/10/22 04:00 98.1 98.1 01/09/22 13:46 15.0 Labs: Laboratory Tests Test 01/09/22 18:57 01/09/22 23:22 Glucose (Fingerstick) 177 mg/dL (70-99) 153 mg/dL (70-99) PE: GEN: intubated LUNGS: vent HEART: RRR ABD: S/ND, PEG feeds @ 30cc/hr NEURO/PSYCH: sedated A/P: Bilateral thalamic infarcts s/p PEG -- PEG functioning, awaiting family decision re: goals of care. Justicifation of Admission Dx: Justifications for Admission: Justification of Admission Dx: Yes Stroke - Ischemic: Stroke-Ischemic SHANICE RAE Jan 10, 2022 10:11
--- NOTE | 2022-01-10 10:49 | PDOC ---
PULMONARY PROGRESS NOTES DATE: 01/10/22 TIME: 10:48 Subjective Discussed with RN no overnight events patient currently on 30% FiO2 5 of PEEP Sedated Vitals Vital Signs Date Time Temp Pulse Resp B/P (MAP) Pulse Ox O2 Delivery O2 Flow Rate FiO2 01/10/22 08:12 92 Ventilator 01/10/22 06:04 84 149/60 01/10/22 06:00 14 01/10/22 04:00 98.1 98.1 01/09/22 13:46 15.0 Comments ros unable to obtain sedated on vent HEENT: Other (nc at orally intubated nose clear neck no lad no thyromegaly) Lungs: Crackles Cardiovascular: S1, S2 Abdomen: Soft Extremities: Other Skin: Warm, Dry Labs Laboratory Tests Test 01/08/22 11:36 01/08/22 17:51 01/09/22 00:33 01/09/22 04:55 Glucose (Fingerstick) 174 mg/dL (70-99) 171 mg/dL (70-99) 157 mg/dL (70-99) 177 mg/dL (70-99) Test 01/09/22 18:57 01/09/22 23:22 Glucose (Fingerstick) 177 mg/dL (70-99) 153 mg/dL (70-99) Laboratory Tests Test 01/09/22 18:57 01/09/22 23:22 Glucose (Fingerstick) 177 mg/dL (70-99) 153 mg/dL (70-99) Medications Active Scripts Medications Dose Route/Sig Max Daily Dose Days Date Category Dose Instructions Montelukast Sodium 10 Mg Tablet 1 Tab PO DAILY 12/24/21 Reported Stool Softener (Docusate Sodium) 50 Mg Capsule 50 Mg PO BID 06/02/19 Reported Wing 5-325 Tablet (Acetaminophen/Hydrocodone Bitart) 1 Each Tablet 1 Tab PO Q4HRS 06/02/19 Reported LAST DOSE GIVEN: Lantus Solostar (Insulin Glargine,Hum.rec.anlog) 100 Unit/1 Ml Insuln.pen 21 Unit SQ QHS 06/02/19 Reported Culturelle (Lactobacillus Rhamnosus Gg) 1 Each Capsule 1 Each PO DAILY 06/01/19 Reported Alive Once Daily Women 50 Plus (Mv-Mn/Folic Acid/Vit K/[id number]) 1 Each Tablet 1 Each PO DAILY 06/01/19 Reported Wing 5-325 Tablet (Acetaminophen/Hydrocodone Bitart) 1 Each Tablet 1 Tab PO PRN Q6HRS PRN 06/01/19 Reported Tizanidine Hcl 4 Mg Tablet 2 Tab PO TID PRN 06/01/19 Reported Proair Hfa Inhaler (Albuterol Sulfate) 8.5 Gm Hfa.aer.ad 1 Puff INH PRN Q6HRS PRN 01/19/19 Reported Montelukast Sodium Tablet (Montelukast Sodium) 10 Mg Tablet 1 Tab PO DAILY 01/19/19 Reported Losartan-Hctz 100-25 Mg Tab (Losartan/Hydrochlorothiazide) 1 Each Tablet 1 Tab PO DAILY 01/19/19 Reported Protonix (Pantoprazole Sodium) 20 Mg Tablet.dr 1 Tab PO DAILY 01/19/19 Reported Vitamin D3 (Cholecalciferol (Vitamin D3)) 1,000 Unit Tablet 1 Tab PO DAILY 01/19/19 Reported Cetirizine Hcl 10 Mg Tablet 1 Tab PO DAILY 01/19/19 Reported Janumet 50-1,000 Mg Tablet (Sitagliptin Phos/Metformin Hcl) 1 Each Tablet 1 Tab PO BID 01/19/19 Reported Comments cxr reviewed ett ok b lat basilar atelectasis infilt Impression . Acute hypoxemic respiratory failure multifactorial metabolic encephalopathy Acute kidney injury, per nephrology Possible sepsis Hypomagnesemia hypokalemia Uncontrolled hypertension Severe metabolic acidosis CVA--positive MRI 12/25/2021, see MRI report COPD Thyroid disorder Status post PEG Plan . Updated 01/10 Nothing new to add we will continue current support Discussed with RN, family to make final decision on withdrawal Continue current support We will have further discussion with family, I recommend withdrawal of care and allow natural VAIBHAV PARIKH MD Jan 10, 2022 10:49
--- NOTE | 2022-01-10 10:57 | PDOC ---
DATE OF SERVICE DATE: 01/10/22 TIME: 10:55 SUBJECTIVE ROS Remains Intubated , stable OBJECTIVE Vital Signs Vital Signs Date Time Temp Pulse Resp B/P (MAP) Pulse Ox O2 Delivery O2 Flow Rate FiO2 01/10/22 08:12 92 Ventilator 01/10/22 06:04 84 149/60 01/10/22 06:00 14 01/10/22 04:00 98.1 98.1 01/09/22 13:46 15.0 I & 0 Intake and Output 01/10/22 07:00 Intake Total 1896 ml Output Total 925 ml Balance 971 ml IV Total 439 ml Tube Feeding 957 ml Other 500 ml Output Urine Total 925 ml PHYSICAL EXAM Physical Exam General Appearance: Intubated HEEN ETT + Skin: warm, No rash Respiratory: bilateral CTA ant Heart: S1S2 Abdomen: soft, bowel sounds present Genitourinary: Berumen Extremities: No LE edema , No cyanosis Neurology: sedated DIAGNOSIS/ASSESSMENT Assessment & Plan MICHELET - Stable renal function - labs on 01/08 . No labs yesterday or today Non Oliguric, Lasix IV prn . supportive care, maintain fluid balance, avoid Nephrotoxins HyperNatremia - Resolved , No labs in past 2 days HypoKalemia - Normal K Anemia- Hgb trended down, last H &H 01/01 defer to primary ? CKD stage 3 Creat 2,1 in 2019 x 1 , No interval labs CVA HTN- stable, antihypertensives DM II- primary managing Patient is DNR. Awaiting family's decision for comfort care COMMENT/RELEVANT DATA Meds Current Medications Medications (Trade) Dose Ordered Sig/Fabio Start Time Stop Time Status Last Admin Dose Admin Acetaminophen (Tylenol Supp) 650 mg PRN Q6HRS PRN 12/24/21 20:15 Acetaminophen (Tylenol) 650 mg PRN Q6HRS PRN 12/24/21 20:15 12/24/21 20:17 DC Albuterol Sulfate (Ventolin Neb Soln) 2.5 mg PRN Q4HRS PRN 12/30/21 02:00 12/30/21 01:55 2.5 MG Albuterol/ Ipratropium (Duoneb) 3 ml RTQID 12/30/21 12:00 01/10/22 08:11 3 ML Amiodarone HCl (Cordarone) 300 mg STK-MED ONCE 12/30/21 20:00 01/01/22 13:17 DC Amlodipine Besylate (Norvasc) 10 mg DAILY 01/04/22 10:00 01/09/22 08:37 10 MG Aspirin (Aspirin Chewable) 162 mg [id number] 01/03/22 08:00 01/09/22 08:36 162 MG Aspirin (Aspirin Rectal Supp) 300 mg DAILY 12/30/21 11:00 01/02/22 15:08 DC 01/02/22 09:42 300 MG Atorvastatin Calcium (Lipitor) 80 mg QHS 12/24/21 21:00 01/09/22 20:38 80 MG Atropine Sulfate (ATROPINE 0.5mg SYRINGE) 0.5 mg PRN Q5MIN PRN 12/30/21 21:30 Bisacodyl (Dulcolax Supp) 10 mg PRN DAILY PRN 12/24/21 20:15 UNV Cefazolin Sodium (Ancef) 1 gm 1X ONCE 01/01/22 13:30 01/01/22 08:01 DC Cetirizine HCl (ZyrTEC) 10 mg DAILY 12/25/21 10:00 01/09/22 12:27 10 MG Chlorhexidine Gluconate (Peridex) 15 ml BID 12/31/21 09:00 01/06/22 17:10 DC 01/05/22 20:43 15 ML Clonidine HCl (Catapres Tts-2) 1 patch WEEKLY 12/26/21 15:00 01/09/22 09:00 1 PATCH Dexmedetomidine HCl 400 mcg/ Sodium Chloride 100 ml @ 3.195 mls/ hr CONT PRN 12/30/21 21:30 Dextrose 1,000 ml @ 75 mls/hr [id number] 01/01/22 10:45 01/02/22 16:48 DC 01/02/22 05:15 75 MLS/HR Dextrose (Dextrose 50%-Water Syringe) 12.5 gm PRN Q15MIN PRN 12/24/21 20:15 Dextrose (Iv Dextrose 5%) 250 ml PRN Q15MIN PRN 12/24/21 20:15 Diltiazem HCl 125 mg/Sodium Chloride 125 ml @ 5 mls/hr CONT PRN 12/30/21 18:15 12/30/21 19:20 DC Enalaprilat (Vasotec Inj) 1.25 mg Q6HRS 12/28/21 12:00 12/31/21 14:47 DC 12/30/21 12:54 1.25 MG Epinephrine HCl (EPINEPHrine SYRINGE) 3 mg STK-MED ONCE 12/30/21 20:00 01/01/22 13:17 DC Etomidate (Amidate) 20 mg STK-MED ONCE 12/30/21 20:00 01/01/22 09:12 DC Famotidine (Pepcid Vial) 20 mg DAILY 12/27/21 09:00 01/05/22 10:49 DC 01/05/22 08:09 20 MG Fentanyl Citrate 30 ml @ 0 mls/hr CONT PRN 12/30/21 21:30 01/09/22 23:34 2.5 MLS/HR Furosemide (Lasix) 80 mg 1X ONCE 01/05/22 13:00 01/05/22 13:01 DC 01/05/22 14:26 80 MG Glycerin/ Hypromellose/ Polyethylene (Artificial Tears) 1 drop PRN Q1HR PRN 12/30/21 21:30 01/06/22 18:08 1 DROP Heparin Sodium (Porcine) (Heparin Sodium) 5,000 unit Q8HRS 01/03/22 14:00 01/10/22 06:05 5,000 UNIT Hydralazine HCl (Apresoline Inj) 10 mg PRN Q4HRS PRN 12/24/21 20:15 01/08/22 11:39 10 MG Hydrochlorothiazide (Hydrodiuril) 25 mg DAILY 12/25/21 10:00 12/31/21 14:47 DC Insulin Human Lispro (HumaLOG) 0-9 UNITS Q6HRS 12/25/21 00:00 01/10/22 06:06 4 UNITS Labetalol HCl (Normodyne Iv Push) 20 mg PRN Q2HR PRN 12/26/21 13:30 01/05/22 22:17 20 MG Lactobacillus Rhamnosus (Culturelle) 1 cap BID 12/30/21 21:00 01/02/22 07:33 DC Lansoprazole (Prevacid) 30 mg DAILY 01/06/22 07:30 01/09/22 12:24 30 MG Linezolid/Dextrose 300 ml @ 300 mls/hr Q12HR 01/02/22 21:00 01/06/22 14:33 DC 01/06/22 09:30 300 MLS/HR Lorazepam (Ativan Inj) 2 mg PRN Q4HRS PRN 12/25/21 10:00 12/29/21 20:16 2 MG Losartan Potassium (Cozaar) 100 mg DAILY 12/25/21 10:00 12/31/21 14:46 DC Magnesium Sulfate 50 ml @ 25 mls/hr 1X ONCE 12/31/21 08:30 12/31/21 10:29 DC 12/31/21 09:06 25 MLS/HR Magnesium Sulfate/ Dextrose (Magnesium Sulfate PREMIX 1GM) 1 gm STK-MED ONCE 12/30/21 20:00 01/01/22 13:17 DC Midazolam HCl (Versed) 5 mg PRN 1X PRN 12/30/21 21:30 12/31/21 21:29 DC Montelukast Sodium (Singulair) 10 mg DAILY 12/25/21 10:00 01/09/22 09:00 10 MG Nicardipine HCl 50 mg/Sodium Chloride 250 ml @ 12.5 mls/hr CONT PRN 12/30/21 19:30 01/09/22 23:31 25 MLS/HR Nicotine (Nicoderm Cq 21mg) 1 patch DAILY 12/26/21 15:00 01/09/22 12:29 1 PATCH Nitroglycerin (Nitro-Bid Oint) 1 inch Q6HRS 12/26/21 18:00 01/10/22 06:04 1 INCH Olanzapine (ZyPREXA ZYDIS) 5 mg PRN BID PRN 12/24/21 20:15 12/24/21 22:49 5 MG Ondansetron HCl (Zofran) 4 mg PRN Q4HRS PRN 12/24/21 20:15 Pantoprazole Sodium (Protonix) 40 mg DAILYAC 12/25/21 11:30 12/29/21 12:07 DC Piperacillin Sod/ Tazobactam Sod (Zosyn Per Pharmacy) 1 each PRN DAILY PRN 12/30/21 04:30 01/06/22 14:34 DC Piperacillin Sod/ Tazobactam Sod 3.375 gm/Sodium Chloride 50 ml @ 100 mls/hr Q6HRS 12/30/21 06:00 01/06/22 14:33 DC 01/06/22 12:13 100 MLS/HR Potassium Bicarbonate (Potassium Effervescent Tablet) 40 meq 1X ONCE 01/02/22 17:45 01/02/22 17:47 DC 01/02/22 17:54 20 MEQ Potassium Chloride/Water 100 ml @ 100 mls/hr Q1H 01/05/22 08:00 01/05/22 09:59 DC 01/05/22 08:35 100 MLS/HR Propofol 100 ml @ 1.917 mls/ hr CONT PRN 12/30/21 21:30 01/10/22 06:36 11.502 MLS/HR Sodium Bicarbonate 150 meq/Dextrose 1,150 ml @ 75 mls/hr [id number] 12/30/21 11:00 12/31/21 08:24 DC 12/31/21 03:04 75 MLS/HR Sodium Bicarbonate (Sodium Bicarb Adult 8.4% Syr) 50 meq STK-MED ONCE 12/30/21 20:00 01/01/22 13:17 DC Sodium Chloride 1,000 ml @ 75 mls/hr [id number] 12/31/21 08:30 01/01/22 10:39 DC 01/01/22 04:01 75 MLS/HR Succinylcholine Chloride (Anectine) 200 mg STK-MED ONCE 12/30/21 20:00 01/01/22 09:12 DC Vancomycin HCl (Vanco Per Pharmacy) 1 each PRN DAILY PRN 12/30/21 10:30 01/02/22 09:58 DC 01/01/22 12:42 1 EACH Vancomycin HCl (Vancomycin Trough Level) 1 each 1X ONCE 01/03/22 10:30 01/03/22 10:31 Cancel Vancomycin HCl 1.5 gm/Sodium Chloride 500 ml @ 250 mls/hr 1X ONCE 12/30/21 11:00 12/30/21 12:59 DC 12/30/21 10:51 250 MLS/HR Vancomycin HCl 1 gm/Sodium Chloride 250 ml @ 250 mls/hr Q36H 01/01/22 23:00 01/02/22 09:58 DC 01/01/22 22:52 250 MLS/HR Vecuronium Rose Bud (Norcuron Bolus) 6 mg PRN 1X PRN 12/30/21 21:30 12/31/21 21:29 DC Vitamin D (Vitamin D3) 1,000 unit DAILY 12/25/21 10:00 01/09/22 08:37 1,000 UNIT Lab Laboratory Tests Test 01/09/22 18:57 01/09/22 23:22 Glucose (Fingerstick) 177 mg/dL (70-99) 153 mg/dL (70-99) Results All relevant outside records, renal labs, imaging studies, telemetry/EKG's were reviewed. Justicifation of Admission Dx: Justifications for Admission: Justification of Admission Dx: Yes Stroke - Ischemic: Stroke-Ischemic VIKA WEST MD Jan 10, 2022 10:57
[2022-01-10] MEDS: ASPIRIN CHEWABLE 81 MG TABLET. PO SCH (11:48)
[2022-01-10] MEDS: LANSOPRAZOLE 30 MG TAB.RAP.DR FT SCH (11:49)
[2022-01-10] MEDS: CHOLECALCIFEROL (VITAMIN D3) 1,000 UNIT TABLET PO SCH (11:56)
[2022-01-10] MEDS: MONTELUKAST SODIUM 10 MG TABLET. PO SCH (12:44)
[2022-01-10] MEDS: ATORVASTATIN CALCIUM 40 MG TABLET. PO SCH (21:42)
[2022-01-11] VITALS (30 sets, daily range): BP systolic 115–192; BP diastolic 52–83
[2022-01-11] MEDS: NITROGLYCERIN OINT 1 GM PACKET. TP SCH ×4 (00:50→18:06)
[2022-01-11] MEDS: INSULIN LISPRO 300 UNITS/3 ML VIAL. SQ SCH ×4 (00:54→17:54)
[2022-01-11] MEDS: LABETALOL 20 MG/4 ML DISP.SYRIN. IVP PRN ×2 (01:47→12:38)
[2022-01-11] MEDS: HEPARIN for SUB-Q USE 5,000 UNIT/ML VIAL. SQ SCH ×3 (06:30→21:25)
[2022-01-11 06:54] LABS: CALCIUM 10.1 mg/dL (8.5-10.1); CREATININE 1.7 mg/dL (0.6-1.0); GFR 31.4; POTASSIUM 3.9 mmol/L (3.5-5.1)
[2022-01-11] MEDS: IPRATRPIUM/ALBUTEROL 0.5/2.5MG 3 ML NEBU. NEB SCH ×4 (07:45→20:20)
[2022-01-11] MEDS: NICOTINE 21MG PATCH. TD SCH (07:53)
[2022-01-11] MEDS: MONTELUKAST SODIUM 10 MG TABLET. PO SCH (08:03)
[2022-01-11] MEDS: CHOLECALCIFEROL (VITAMIN D3) 1,000 UNIT TABLET PO SCH (08:03)
[2022-01-11] MEDS: ASPIRIN CHEWABLE 81 MG TABLET. PO SCH (08:04)
[2022-01-11] MEDS: CETIRIZINE HCL 10 MG TABLET. PO SCH (08:04)
[2022-01-11] MEDS: LANSOPRAZOLE 30 MG TAB.RAP.DR FT SCH (08:04)
[2022-01-11] MEDS: PROPOFOL 100 ML IV PRN ×2 (09:17→14:23)
--- NOTE | 2022-01-11 10:30 | PDOC ---
PULMONARY PROGRESS NOTES DATE: 01/11/22 TIME: 10:30 Subjective Discussed with RN no overnight events patient currently on 30% FiO2 5 of PEEP Sedated Vitals Vital Signs Date Time Temp Pulse Resp B/P (MAP) Pulse Ox O2 Delivery O2 Flow Rate FiO2 01/11/22 10:00 80 16 144/65 98 Ventilator 01/11/22 08:00 98.4 98.4 01/10/22 11:58 15.0 Comments ros unable to obtain sedated on vent HEENT: Other (nc at orally intubated nose clear neck no lad no thyromegaly) Lungs: Crackles Cardiovascular: S1, S2 Abdomen: Soft Extremities: Other Skin: Warm, Dry Labs Laboratory Tests Test 01/09/22 18:57 01/09/22 23:22 01/10/22 12:56 01/10/22 18:11 Glucose (Fingerstick) 177 mg/dL (70-99) 153 mg/dL (70-99) 217 mg/dL (70-99) 218 mg/dL (70-99) Test 01/11/22 00:47 01/11/22 04:25 01/11/22 06:19 Glucose (Fingerstick) 219 mg/dL (70-99) 207 mg/dL (70-99) Platelet Count 296 x10^3/uL (140-400) Sodium Level 139 mmol/L (136-145) Potassium Level 3.9 mmol/L (3.5-5.1) Chloride Level 104 mmol/L (98-107) Carbon Dioxide Level 25 mmol/L (21-32) Anion Gap 10 (6-14) Blood Urea Nitrogen 32 mg/dL (7-20) Creatinine 1.7 mg/dL (0.6-1.0) Estimated GFR (Cockcroft-Gault) 31.4 Glucose Level 202 mg/dL (70-99) Calcium Level 10.1 mg/dL (8.5-10.1) Laboratory Tests Test 01/10/22 12:56 01/10/22 18:11 01/11/22 00:47 01/11/22 04:25 Glucose (Fingerstick) 217 mg/dL (70-99) 218 mg/dL (70-99) 219 mg/dL (70-99) Platelet Count 296 x10^3/uL (140-400) Sodium Level 139 mmol/L (136-145) Potassium Level 3.9 mmol/L (3.5-5.1) Chloride Level 104 mmol/L (98-107) Carbon Dioxide Level 25 mmol/L (21-32) Anion Gap 10 (6-14) Blood Urea Nitrogen 32 mg/dL (7-20) Creatinine 1.7 mg/dL (0.6-1.0) Estimated GFR (Cockcroft-Gault) 31.4 Glucose Level 202 mg/dL (70-99) Calcium Level 10.1 mg/dL (8.5-10.1) Test 01/11/22 06:19 Glucose (Fingerstick) 207 mg/dL (70-99) Medications Active Scripts Medications Dose Route/Sig Max Daily Dose Days Date Category Dose Instructions Montelukast Sodium 10 Mg Tablet 1 Tab PO DAILY 12/24/21 Reported Stool Softener (Docusate Sodium) 50 Mg Capsule 50 Mg PO BID 06/02/19 Reported [place] 5-325 Tablet (Acetaminophen/Hydrocodone Bitart) 1 Each Tablet 1 Tab PO Q4HRS 06/02/19 Reported LAST DOSE GIVEN: Lantus Solostar (Insulin Glargine,Hum.rec.anlog) 100 Unit/1 Ml Insuln.pen 21 Unit SQ QHS 06/02/19 Reported Culturelle (Lactobacillus Rhamnosus Gg) 1 Each Capsule 1 Each PO DAILY 06/01/19 Reported Alive Once Daily Women 50 Plus (Mv-Mn/Folic Acid/Vit K/[id number]) 1 Each Tablet 1 Each PO DAILY 06/01/19 Reported [place] 5-325 Tablet (Acetaminophen/Hydrocodone Bitart) 1 Each Tablet 1 Tab PO PRN Q6HRS PRN 06/01/19 Reported Tizanidine Hcl 4 Mg Tablet 2 Tab PO TID PRN 06/01/19 Reported Proair Hfa Inhaler (Albuterol Sulfate) 8.5 Gm Hfa.aer.ad 1 Puff INH PRN Q6HRS PRN 01/19/19 Reported Montelukast Sodium Tablet (Montelukast Sodium) 10 Mg Tablet 1 Tab PO DAILY 01/19/19 Reported Losartan-Hctz 100-25 Mg Tab (Losartan/Hydrochlorothiazide) 1 Each Tablet 1 Tab PO DAILY 01/19/19 Reported Protonix (Pantoprazole Sodium) 20 Mg Tablet.dr 1 Tab PO DAILY 01/19/19 Reported Vitamin D3 (Cholecalciferol (Vitamin D3)) 1,000 Unit Tablet 1 Tab PO DAILY 01/19/19 Reported Cetirizine Hcl 10 Mg Tablet 1 Tab PO DAILY 01/19/19 Reported Janumet 50-1,000 Mg Tablet (Sitagliptin Phos/Metformin Hcl) 1 Each Tablet 1 Tab PO BID 01/19/19 Reported Comments cxr reviewed ett ok b lat basilar atelectasis infilt Impression . Acute hypoxemic respiratory failure multifactorial metabolic encephalopathy Acute kidney injury, per nephrology Possible sepsis Hypomagnesemia hypokalemia Uncontrolled hypertension Severe metabolic acidosis CVA--positive MRI 12/25/2021, see MRI report COPD Thyroid disorder Status post PEG Plan . 01/11 Nothing new to add we will continue current support Discussed with RN, family to make final decision on withdrawal Continue current support We will have further discussion with family, I recommend withdrawal of care and allow natural VAIBHAV PARIKH MD Jan 11, 2022 10:30
--- NOTE | 2022-01-11 11:26 | PDOC ---
[employer] PROGRESS NOTE Date of Service DOS: DATE: 01/11/22 TIME: 11:23 Chief Complaint Chief Complaint Expressive aphasia unilateral weakness secondary to 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 Acute respiratory failure requiring BiPAP support Concern for early sepsis Dehydration Metabolic acidosis Acute electrolyte derangement, hypernatremia and hyperchloremia-possible dehydration History hypertension History of diabetes diabetes History of Present Illness History of Present Illness 01/11/2022 Patient seen and examined in the ICU Discussed with RN Chart reviewed She remains on the ventilator AC/16/400/40 percent with 5 of PEEP Berumen bedside drainage Still has a rectal bag Sedated with fentanyl propofol Also has a maintenance IV PEG running at 30 cc an hour Still on Cardene drip Still critically ill 01/10/2022 Patient seen and examined in the ICU She remains on the ventilator AC/16/400/30 percent with 5 of PEEP Rectal bag now in place Berumen to bedside drainage Art line in place with pressure 169/64 Has fentanyl propofol Cardene and maintenance IV hanging OG feed running at 30 cc an hour Discussed with RN Chart reviewed 01/09/2022 Patient seen and examined in the ICU She remains on the ventilator AC/16/400/30 percent with 5 of PEEP Art line showing a pressure 150/63 Berumen bedside drainage PEG running at 30 cc an hour Still has a Cardene drip Sedated with propofol and fentanyl Chart reviewed Discussed with RN We are considering comfort care 01/08/2022 Patient seen and examined in the ICU She remains on the ventilator AC/16/400/30 percent with 5 of PEEP Discussed with GI nurse practitioner Discussed with RN Chart reviewed Patient's art line shows a pressure 168/62 Full to bedside drainage Sedated with propofol and fentanyl OG running at 30 cc an hour Still on Cardene drip 01/07/2020 Patient seen and examined in the ICU She remains on the ventilator AC/16/400/30 percent with 5 of PEEP Berumen to bedside drainage Art line in place with a pressure 149/61 PEG feeds running She is sedated with propofol fentanyl Also has a Cardene drip running She remains critically ill Discussed with RN Chart reviewed 01/06/2022 Patient seen and examined in the ICU She remains on the vent AC/16/400/30 percent with five of PEEP Has PEG feed running at 30 cc an hour Has Berumen to bedside drainage Zyvox hanging IV Sedated with propofol and fentanyl Has Cardene drip running Discussed with RN Chart reviewed She remains critically ill 01/05/2022 Patient seen and examined in the ICU again She remains on the vent AC/16/400/30 percent with 5 of PEEP Has her new PEG feeds running at 30 cc an hour Sedated with fentanyl Still requiring Cardene drip 01/04/2022 Patient seen and examined in the ICU She is on the vent AC/16/400/30 percent with 5 of PEEP (satting 100% and has a pH of 7.44) Art line in place Sedated with propofol and fentanyl PEG feed running at 30 cc an hour On Cardene drip but I discussed with RN working to titrate that off and start per PEG Norvasc Chart reviewed She remains critically ill 01/03/2022 Patient seen and examined in the ICU She remains on the vent AC/16/400/30 percent with 5 of PEEP Discussed with RN, the patient's urine output is a low Currently sedated with propofol Has IV Zosyn and IV Zyvox NG running at 30 cc an hour Has Berumen to bedside drainage ABIs are in place Art line appears clean dry intact and functioning well Chart reviewed She remains critically ill 01/02/2022 Patient seen and examined in the ICU She got her PEG yesterday but then apparently aspirated and had to be intubated Vent settings as follows AC/16/400/30 5% with 5 of PEEP Sedated with propofol fentanyl Has IV Zosyn hanging D5 water also hanging Creatinine bumped up a little bit (I called the pharmacy working to stop the Vanco and start Zyvox) Chart reviewed Discussed with RN She is critically ill 01/01/2022 Patient seen and examined in the ICU She remains on the vent AC/16/400/30 5% with 5 of PEEP Art line in place Sedated with propofol and fentanyl Has half-normal saline hanging with Zosyn Berumen to bedside drainage Chart reviewed Discussed with RN 12/31 Patient evaluated examined at bedside. She required intubation overnight and is currently intubated and sedated. Patient was intubated after family decided on continuing full treatment measures. Blood pressure improved. When seen patient unresponsive no withdrawal to pain. Pupils do still have reflex. Continue current. Nephrology pulmonology following. 45 minutes critical care time 12/30/2021 Rapid response called last night for desaturations down to the 70s. Labs were obtained showing hypernatremia. Patient still unresponsive and placed on BiPAP. ABG showed 7.1 740/74/14. Concern for aspiration, worsening of stroke, or dehydration. Nephrology and pulmonology consulted. Patient transferred to the ICU. Empiric IV antibiotics are started and blood cultures are obtained. D5 bicarb drip started. Patient's chart, labs, images were reviewed and discussed with RN 12/29/21 No acute events overnight. Patient seen examined bedside. Sleeping in bed and unable to be arousable with sternal rub or to voice. Patient unable to follow through with speech evaluation. Will need to consider TPN for nutrition. Medicaid application pending. Patient's chart, labs, images were reviewed and discussed with RN 12/28 Patient evaluated examined at bedside. She was sleeping in bed unable to get he r to open her eyes even with sternal rub. Some withdrawal to pain in the right lower extremity none in right upper extremity. Unable to follow commands to see if she could hold her arm against gravity. Still having some trouble controlling blood pressure is still on Cardene drip for now. Will schedule Vasotec and try to start weaning off the Cardene drip. 12/27 Evaluated and examined at bedside. She was resting in bed not easily awoken and still cannot provide me really with any history given her aphasic state. She did have some withdrawal to pain in the right lower extremity still no movement and right upper. PT OT. Neuro following. Plan discussed bedside RN. 12/26 Evaluated and examined at bedside. Is a bit lethargic today difficulty staying awake this morning. MRI showing acute infarcts. Neurology continues to follow. Patient remains aphasic. Therapy modalities. Blood pressure control with IV until able to take oral Okay to transfer out of ICU to CVC if bed is needed Vitals/I&O Vitals/I&O: Vital Signs Date Time Temp Pulse Resp B/P (MAP) Pulse Ox O2 Delivery O2 Flow Rate FiO2 01/11/22 11:00 92 16 153/65 97 Ventilator 01/11/22 08:00 98.4 98.4 01/10/22 11:58 15.0 I & O 01/10/22 01/10/22 01/11/22 15:00 23:00 07:00 Intake Total 260 ml 661 ml 1232.9 ml Output Total 275 ml 200 ml 520 ml Balance -15 ml 461 ml 712.9 ml Physical Exam General: Other (Sedated on the vent) Heart: Regular rate Lungs: Crackles Abdomen: Other (New PEG tube in place) Extremities: No clubbing Skin: No breakdown Labs Labs: Laboratory Tests Test 01/10/22 12:56 01/10/22 18:11 01/11/22 00:47 01/11/22 04:25 Glucose (Fingerstick) 217 mg/dL (70-99) 218 mg/dL (70-99) 219 mg/dL (70-99) Platelet Count 296 x10^3/uL (140-400) Sodium Level 139 mmol/L (136-145) Potassium Level 3.9 mmol/L (3.5-5.1) Chloride Level 104 mmol/L (98-107) Carbon Dioxide Level 25 mmol/L (21-32) Anion Gap 10 (6-14) Blood Urea Nitrogen 32 mg/dL (7-20) Creatinine 1.7 mg/dL (0.6-1.0) Estimated GFR (Cockcroft-Gault) 31.4 Glucose Level 202 mg/dL (70-99) Calcium Level 10.1 mg/dL (8.5-10.1) Test 01/11/22 06:19 Glucose (Fingerstick) 207 mg/dL (70-99) Assessment and Plan Assessmemt and Plan Stroke (acute infarcts at the junctions of the bilateral thalamic I and electronic organ mechanic ior limbs of the internal capsule and the right caudate nucleus.) Respiratory failure New PEG Expressive aphasia unilateral weakness secondary to 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 Resolving sepsis Dehydration Hyponatremia Hypokalemia Hypomagnesemia Metabolic acidosis Acute electrolyte derangement, hypernatremia and hyperchloremia-possible dehydration History hypertension History of diabetes diabetes Plan We are considering going to comfort care if family would agree For now continue the following; ICU monitoring Vent weaning Still trying to wean off the Cardene drip Continue sedation with propofol fentanyl Monitor art line Maintain Berumen Continue PEG feeds Follow cultures Appreciate subspecialist input (nephrology gastroenterology neurology and pulmonary medicine) Trend labs Statins Aspirin DVT prophylaxis with [place] DNR Sliding-scale insulin Prognosis extremely guarded at best CC time 31 minutes Comment Review of Relevant I have reviewed the following items chino (where applicable) has been applied. Justifications for Admission TIA Indications Persistent neurologic signs?: Yes Justification for admission: There is persistence of patient's focal neurologic signs or symptoms or there is concern for recurrence of patient's neurological signs and symptoms. Severe hypertension?: Yes Justification for admission: There is concern for patient's severe hypertension of (>180/110mmHg--please indicate patient's BP here) that has not been controlled by ED treatment. Patient needs inpatient level of care for further evaluation and management. Other Justification JAGDISH ONEIL III DO Jan 11, 2022 11:26
--- NOTE | 2022-01-11 11:53 | PDOC ---
DATE OF SERVICE DATE: 01/11/22 TIME: 11:52 SUBJECTIVE ROS Remains Intubated , stable OBJECTIVE Vital Signs Vital Signs Date Time Temp Pulse Resp B/P (MAP) Pulse Ox O2 Delivery O2 Flow Rate FiO2 01/11/22 11:00 92 16 153/65 97 Ventilator 01/11/22 08:00 98.4 98.4 01/10/22 11:58 15.0 I & 0 Intake and Output 01/11/22 07:00 Intake Total 2153.9 ml Output Total 995 ml Balance 1158.9 ml IV Total 1042.9 ml Tube Feeding 1111 ml Output Urine Total 795 ml Stool Total 200 ml PHYSICAL EXAM Physical Exam General Appearance: Intubated HEEN ETT + Skin: warm, No rash Respiratory: bilateral CTA ant Heart: S1S2 Abdomen: soft, bowel sounds present Genitourinary: Berumen Extremities: No LE edema , No cyanosis Neurology: sedated DIAGNOSIS/ASSESSMENT Assessment & Plan MICHELET - Improved to her baseline , Non Oliguric, Lasix IV prn, 1 dose today 80 mg IV . Discussed with RN . supportive care, maintain fluid balance, avoid Nephrotoxins HyperNatremia - Resolved HypoKalemia - Normal K Anemia- Hgb trended down, last H &H 01/01 defer to primary ? CKD stage 3 Creat 2,1 in 2019 x 1 , No interval labs CVA HTN- stable, antihypertensives DM II- primary managing COMMENT/RELEVANT DATA Meds Current Medications Medications (Trade) Dose Ordered Sig/Fabio Start Time Stop Time Status Last Admin Dose Admin Acetaminophen (Tylenol Supp) 650 mg PRN Q6HRS PRN 12/24/21 20:15 Acetaminophen (Tylenol) 650 mg PRN Q6HRS PRN 12/24/21 20:15 12/24/21 20:17 DC Albuterol Sulfate (Ventolin Neb Soln) 2.5 mg PRN Q4HRS PRN 12/30/21 02:00 12/30/21 01:55 2.5 MG Albuterol/ Ipratropium (Duoneb) 3 ml RTQID 12/30/21 12:00 01/11/22 07:45 3 ML Amiodarone HCl (Cordarone) 300 mg STK-MED ONCE 12/30/21 20:00 01/01/22 13:17 DC Amlodipine Besylate (Norvasc) 10 mg DAILY 01/04/22 10:00 01/11/22 08:04 10 MG Aspirin (Aspirin Chewable) 162 mg [id number] 01/03/22 08:00 01/11/22 08:04 162 MG Aspirin (Aspirin Rectal Supp) 300 mg DAILY 12/30/21 11:00 01/02/22 15:08 DC 01/02/22 09:42 300 MG Atorvastatin Calcium (Lipitor) 80 mg QHS 12/24/21 21:00 01/10/22 21:42 80 MG Atropine Sulfate (ATROPINE 0.5mg SYRINGE) 0.5 mg PRN Q5MIN PRN 12/30/21 21:30 Bisacodyl (Dulcolax Supp) 10 mg PRN DAILY PRN 12/24/21 20:15 UNV Cefazolin Sodium (Ancef) 1 gm 1X ONCE 01/01/22 13:30 01/01/22 08:01 DC Cetirizine HCl (ZyrTEC) 10 mg DAILY 12/25/21 10:00 01/11/22 08:04 10 MG Chlorhexidine Gluconate (Peridex) 15 ml BID 12/31/21 09:00 01/06/22 17:10 DC 01/05/22 20:43 15 ML Clonidine HCl (Catapres Tts-2) 1 patch WEEKLY 12/26/21 15:00 01/09/22 09:00 1 PATCH Dexmedetomidine HCl 400 mcg/ Sodium Chloride 100 ml @ 3.195 mls/ hr CONT PRN 12/30/21 21:30 Dextrose 1,000 ml @ 75 mls/hr [id number] 01/01/22 10:45 01/02/22 16:48 DC 01/02/22 05:15 75 MLS/HR Dextrose (Dextrose 50%-Water Syringe) 12.5 gm PRN Q15MIN PRN 12/24/21 20:15 Dextrose (Iv Dextrose 5%) 250 ml PRN Q15MIN PRN 12/24/21 20:15 Diltiazem HCl 125 mg/Sodium Chloride 125 ml @ 5 mls/hr CONT PRN 12/30/21 18:15 12/30/21 19:20 DC Enalaprilat (Vasotec Inj) 1.25 mg Q6HRS 12/28/21 12:00 12/31/21 14:47 DC 12/30/21 12:54 1.25 MG Epinephrine HCl (EPINEPHrine SYRINGE) 3 mg STK-MED ONCE 12/30/21 20:00 01/01/22 13:17 DC Etomidate (Amidate) 20 mg STK-MED ONCE 12/30/21 20:00 01/01/22 09:12 DC Famotidine (Pepcid Vial) 20 mg DAILY 12/27/21 09:00 01/05/22 10:49 DC 01/05/22 08:09 20 MG Fentanyl Citrate 30 ml @ 0 mls/hr CONT PRN 12/30/21 21:30 01/11/22 09:17 2.5 MLS/HR Furosemide (Lasix) 80 mg 1X ONCE 01/05/22 13:00 01/05/22 13:01 DC 01/05/22 14:26 80 MG Glycerin/ Hypromellose/ Polyethylene (Artificial Tears) 1 drop PRN Q1HR PRN 12/30/21 21:30 01/06/22 18:08 1 DROP Heparin Sodium (Porcine) (Heparin Sodium) 5,000 unit Q8HRS 01/03/22 14:00 01/11/22 06:30 5,000 UNIT Hydralazine HCl (Apresoline Inj) 10 mg PRN Q4HRS PRN 12/24/21 20:15 01/08/22 11:39 10 MG Hydrochlorothiazide (Hydrodiuril) 25 mg DAILY 12/25/21 10:00 12/31/21 14:47 DC Insulin Human Lispro (HumaLOG) 0-9 UNITS Q6HRS 12/25/21 00:00 01/11/22 06:21 5 UNITS Labetalol HCl (Normodyne Iv Push) 20 mg PRN Q2HR PRN 12/26/21 13:30 01/11/22 01:47 20 MG Lactobacillus Rhamnosus (Culturelle) 1 cap BID 12/30/21 21:00 01/02/22 07:33 DC Lansoprazole (Prevacid) 30 mg DAILY 01/06/22 07:30 01/11/22 08:04 30 MG Linezolid/Dextrose 300 ml @ 300 mls/hr Q12HR 01/02/22 21:00 01/06/22 14:33 DC 01/06/22 09:30 300 MLS/HR Lorazepam (Ativan Inj) 2 mg PRN Q4HRS PRN 12/25/21 10:00 12/29/21 20:16 2 MG Losartan Potassium (Cozaar) 100 mg DAILY 12/25/21 10:00 12/31/21 14:46 DC Magnesium Sulfate 50 ml @ 25 mls/hr 1X ONCE 12/31/21 08:30 12/31/21 10:29 DC 12/31/21 09:06 25 MLS/HR Magnesium Sulfate/ Dextrose (Magnesium Sulfate PREMIX 1GM) 1 gm STK-MED ONCE 12/30/21 20:00 01/01/22 13:17 DC Midazolam HCl (Versed) 5 mg PRN 1X PRN 12/30/21 21:30 12/31/21 21:29 DC Montelukast Sodium (Singulair) 10 mg DAILY 12/25/21 10:00 01/11/22 08:03 10 MG Nicardipine HCl 50 mg/Sodium Chloride 250 ml @ 12.5 mls/hr CONT PRN 12/30/21 19:30 01/11/22 08:03 50 MLS/HR Nicotine (Nicoderm Cq 21mg) 1 patch DAILY 12/26/21 15:00 01/09/22 12:29 1 PATCH Nitroglycerin (Nitro-Bid Oint) 1 inch Q6HRS 12/26/21 18:00 01/11/22 06:23 1 INCH Olanzapine (ZyPREXA ZYDIS) 5 mg PRN BID PRN 12/24/21 20:15 12/24/21 22:49 5 MG Ondansetron HCl (Zofran) 4 mg PRN Q4HRS PRN 12/24/21 20:15 Pantoprazole Sodium (Protonix) 40 mg DAILYAC 12/25/21 11:30 12/29/21 12:07 DC Piperacillin Sod/ Tazobactam Sod (Zosyn Per Pharmacy) 1 each PRN DAILY PRN 12/30/21 04:30 01/06/22 14:34 DC Piperacillin Sod/ Tazobactam Sod 3.375 gm/Sodium Chloride 50 ml @ 100 mls/hr Q6HRS 12/30/21 06:00 01/06/22 14:33 DC 01/06/22 12:13 100 MLS/HR Potassium Bicarbonate (Potassium Effervescent Tablet) 40 meq 1X ONCE 01/02/22 17:45 01/02/22 17:47 DC 01/02/22 17:54 20 MEQ Potassium Chloride/Water 100 ml @ 100 mls/hr Q1H 01/05/22 08:00 01/05/22 09:59 DC 01/05/22 08:35 100 MLS/HR Propofol 100 ml @ 1.917 mls/ hr CONT PRN 12/30/21 21:30 01/11/22 09:17 11.502 MLS/HR Sodium Bicarbonate 150 meq/Dextrose 1,150 ml @ 75 mls/hr [id number] 12/30/21 11:00 12/31/21 08:24 DC 12/31/21 03:04 75 MLS/HR Sodium Bicarbonate (Sodium Bicarb Adult 8.4% Syr) 50 meq STK-MED ONCE 12/30/21 20:00 01/01/22 13:17 DC Sodium Chloride 1,000 ml @ 75 mls/hr [id number] 12/31/21 08:30 01/01/22 10:39 DC 01/01/22 04:01 75 MLS/HR Succinylcholine Chloride (Anectine) 200 mg STK-MED ONCE 12/30/21 20:00 01/01/22 09:12 DC Vancomycin HCl (Vanco Per Pharmacy) 1 each PRN DAILY PRN 12/30/21 10:30 01/02/22 09:58 DC 01/01/22 12:42 1 EACH Vancomycin HCl (Vancomycin Trough Level) 1 each 1X ONCE 01/03/22 10:30 01/03/22 10:31 Cancel Vancomycin HCl 1.5 gm/Sodium Chloride 500 ml @ 250 mls/hr 1X ONCE 12/30/21 11:00 12/30/21 12:59 DC 12/30/21 10:51 250 MLS/HR Vancomycin HCl 1 gm/Sodium Chloride 250 ml @ 250 mls/hr Q36H 01/01/22 23:00 01/02/22 09:58 DC 01/01/22 22:52 250 MLS/HR Vecuronium [place] (Norcuron Bolus) 6 mg PRN 1X PRN 12/30/21 21:30 12/31/21 21:29 DC Vitamin D (Vitamin D3) 1,000 unit DAILY 12/25/21 10:00 01/11/22 08:03 1,000 UNIT Lab Laboratory Tests Test 01/10/22 12:56 01/10/22 18:11 01/11/22 00:47 01/11/22 04:25 Glucose (Fingerstick) 217 mg/dL (70-99) 218 mg/dL (70-99) 219 mg/dL (70-99) Platelet Count 296 x10^3/uL (140-400) Sodium Level 139 mmol/L (136-145) Potassium Level 3.9 mmol/L (3.5-5.1) Chloride Level 104 mmol/L (98-107) Carbon Dioxide Level 25 mmol/L (21-32) Anion Gap 10 (6-14) Blood Urea Nitrogen 32 mg/dL (7-20) Creatinine 1.7 mg/dL (0.6-1.0) Estimated GFR (Cockcroft-Gault) 31.4 Glucose Level 202 mg/dL (70-99) Calcium Level 10.1 mg/dL (8.5-10.1) Test 01/11/22 06:19 Glucose (Fingerstick) 207 mg/dL (70-99) Results All relevant outside records, renal labs, imaging studies, telemetry/EKG's were reviewed. Justicifation of Admission Dx: Justifications for Admission: Justification of Admission Dx: Yes Stroke - Ischemic: Stroke-Ischemic VIKA WEST MD Jan 11, 2022 11:53
--- NOTE | 2022-01-11 12:27 | PDOC ---
Date of Service: DATE: 01/11/22 TIME: 12:26 Objective: Objective: No GI concerns per nurse, no decisions from family. Vital Signs: Vital Signs Date Time Temp Pulse Resp B/P (MAP) Pulse Ox O2 Delivery O2 Flow Rate FiO2 01/11/22 12:20 98 Ventilator 01/11/22 11:00 92 16 153/65 01/11/22 08:00 98.4 98.4 01/10/22 11:58 15.0 Labs: Laboratory Tests Test 01/10/22 12:56 01/10/22 18:11 01/11/22 00:47 01/11/22 06:19 Glucose (Fingerstick) 217 mg/dL (70-99) 218 mg/dL (70-99) 219 mg/dL (70-99) 207 mg/dL (70-99) Test 01/11/22 12:22 Glucose (Fingerstick) 210 mg/dL (70-99) PE: GEN: intubated LUNGS: vent ABD: soft, PEG feeds @ 30 NEURO/PSYCH: sedated A/P: Bilateral thalamic infarcts s/p PEG -- Stable GI-oseguera, awaiting family's decision. Justicifation of Admission Dx: Justifications for Admission: Justification of Admission Dx: Yes Stroke - Ischemic: Stroke-Ischemic SHANICE RAE Jan 11, 2022 12:27
[2022-01-11] MEDS: hydrALAZINE 25 MG TABLET PO SCH ×2 (12:39→21:24)
[2022-01-11] MEDS ORDERED: FUROSEMIDE 40 MG/4 ML VIAL. IVP ONE (13:15)
--- NOTE | 2022-01-11 15:36 | NUR ---
SS following up with discharge planning. SS reviewed pt chart and discussed with pt RN. Pt is currently on the vent at 40%. Pt on Cardene, Propofol, and Fentanyl. Physicians discussing goals of care with pt's family. Not ready. Self pay. Med Assist following. SS will continue to follow for discharge planning.
[2022-01-11] MEDS: ATORVASTATIN CALCIUM 40 MG TABLET. PO SCH (21:24)
[2022-01-12] VITALS (24 sets, daily range): BP systolic 112–172; BP diastolic 52–81
[2022-01-12] MEDS: INSULIN LISPRO 300 UNITS/3 ML VIAL. SQ SCH ×4 (01:36→17:12)
[2022-01-12] MEDS: PROPOFOL 100 ML IV PRN ×3 (01:38→16:19)
[2022-01-12] MEDS: NITROGLYCERIN OINT 1 GM PACKET. TP SCH ×4 (01:38→17:12)
[2022-01-12] MEDS: HEPARIN for SUB-Q USE 5,000 UNIT/ML VIAL. SQ SCH ×3 (05:18→21:38)
[2022-01-12] MEDS: IPRATRPIUM/ALBUTEROL 0.5/2.5MG 3 ML NEBU. NEB SCH ×4 (07:44→20:00)
[2022-01-12] MEDS: hydrALAZINE 25 MG TABLET PO SCH ×3 (07:55→21:39)
[2022-01-12] MEDS: CETIRIZINE HCL 10 MG TABLET. PO SCH (07:55)
[2022-01-12] MEDS: CHOLECALCIFEROL (VITAMIN D3) 1,000 UNIT TABLET PO SCH (07:56)
[2022-01-12] MEDS: NICOTINE 21MG PATCH. TD SCH (07:56)
[2022-01-12] MEDS: LANSOPRAZOLE 30 MG TAB.RAP.DR FT SCH (07:56)
[2022-01-12] MEDS: MONTELUKAST SODIUM 10 MG TABLET. PO SCH (07:56)
[2022-01-12] MEDS: ASPIRIN CHEWABLE 81 MG TABLET. PO SCH (07:56)
--- NOTE | 2022-01-12 09:01 | PDOC ---
DATE OF SERVICE DATE: 01/12/22 TIME: 08:59 SUBJECTIVE ROS Remains Intubated , stable OBJECTIVE Vital Signs Vital Signs Date Time Temp Pulse Resp B/P (MAP) Pulse Ox O2 Delivery O2 Flow Rate FiO2 01/12/22 08:00 Mechanical Ventilator 01/12/22 07:55 79 139/69 01/12/22 07:36 98 01/12/22 06:00 16 01/12/22 04:00 98.2 98.2 I & 0 Intake and Output 01/12/22 07:00 Intake Total 3396.4 ml Output Total 2050 ml Balance 1346.4 ml IV Total 1244.4 ml Tube Feeding 1461 ml Other 691 ml Output Urine Total 1950 ml Stool Total 100 ml PHYSICAL EXAM Physical Exam General Appearance: Intubated HEEN ETT + Skin: warm, No rash Respiratory: bilateral CTA ant Heart: S1S2 Abdomen: soft, bowel sounds present Genitourinary: Berumen Extremities: No LE edema , No cyanosis Neurology: sedated DIAGNOSIS/ASSESSMENT Assessment & Plan MICHELET - Improved to her baseline , Non Oliguric, Lasix IV prn, given 1 dose yesterday with improvement in UOP. . Discussed with RN Order am labs depending on goals of care- discussed with nursing ; supportive care, maintain fluid balance, avoid Nephrotoxins HyperNatremia - Resolved HypoKalemia - Normal K Anemia- Hgb trended down, last H &H 01/01 defer to primary ? CKD stage 3 Creat 2,1 in 2019 x 1 , No interval labs CVA- Bilat Thalamic Infarcts HTN- stable, antihypertensives DM II- primary managing COMMENT/RELEVANT DATA Meds Current Medications Medications (Trade) Dose Ordered Sig/Fabio Start Time Stop Time Status Last Admin Dose Admin Acetaminophen (Tylenol Supp) 650 mg PRN Q6HRS PRN 12/24/21 20:15 Acetaminophen (Tylenol) 650 mg PRN Q6HRS PRN 12/24/21 20:15 12/24/21 20:17 DC Albuterol Sulfate (Ventolin Neb Soln) 2.5 mg PRN Q4HRS PRN 12/30/21 02:00 12/30/21 01:55 2.5 MG Albuterol/ Ipratropium (Duoneb) 3 ml RTQID 12/30/21 12:00 01/12/22 07:44 3 ML Amiodarone HCl (Cordarone) 300 mg STK-MED ONCE 12/30/21 20:00 01/01/22 13:17 DC Amlodipine Besylate (Norvasc) 10 mg DAILY 01/04/22 10:00 01/12/22 07:55 10 MG Aspirin (Aspirin Chewable) 162 mg [id number] 01/03/22 08:00 01/12/22 07:56 162 MG Aspirin (Aspirin Rectal Supp) 300 mg DAILY 12/30/21 11:00 01/02/22 15:08 DC 01/02/22 09:42 300 MG Atorvastatin Calcium (Lipitor) 80 mg QHS 12/24/21 21:00 01/11/22 21:24 80 MG Atropine Sulfate (ATROPINE 0.5mg SYRINGE) 0.5 mg PRN Q5MIN PRN 12/30/21 21:30 Bisacodyl (Dulcolax Supp) 10 mg PRN DAILY PRN 12/24/21 20:15 UNV Cefazolin Sodium (Ancef) 1 gm 1X ONCE 01/01/22 13:30 01/01/22 08:01 DC Cetirizine HCl (ZyrTEC) 10 mg DAILY 12/25/21 10:00 01/12/22 07:55 10 MG Chlorhexidine Gluconate (Peridex) 15 ml BID 12/31/21 09:00 01/06/22 17:10 DC 01/05/22 20:43 15 ML Clonidine HCl (Catapres Tts-2) 1 patch WEEKLY 12/26/21 15:00 01/09/22 09:00 1 PATCH Dexmedetomidine HCl 400 mcg/ Sodium Chloride 100 ml @ 3.195 mls/ hr CONT PRN 12/30/21 21:30 Dextrose 1,000 ml @ 75 mls/hr [id number] 01/01/22 10:45 01/02/22 16:48 DC 01/02/22 05:15 75 MLS/HR Dextrose (Dextrose 50%-Water Syringe) 12.5 gm PRN Q15MIN PRN 12/24/21 20:15 Dextrose (Iv Dextrose 5%) 250 ml PRN Q15MIN PRN 12/24/21 20:15 Diltiazem HCl 125 mg/Sodium Chloride 125 ml @ 5 mls/hr CONT PRN 12/30/21 18:15 12/30/21 19:20 DC Enalaprilat (Vasotec Inj) 1.25 mg Q6HRS 12/28/21 12:00 12/31/21 14:47 DC 12/30/21 12:54 1.25 MG Epinephrine HCl (EPINEPHrine SYRINGE) 3 mg STK-MED ONCE 12/30/21 20:00 01/01/22 13:17 DC Etomidate (Amidate) 20 mg STK-MED ONCE 12/30/21 20:00 01/01/22 09:12 DC Famotidine (Pepcid Vial) 20 mg DAILY 12/27/21 09:00 01/05/22 10:49 DC 01/05/22 08:09 20 MG Fentanyl Citrate 30 ml @ 0 mls/hr CONT PRN 12/30/21 21:30 01/12/22 06:22 2.5 MLS/HR Furosemide (Lasix) 80 mg 1X ONCE 01/11/22 13:15 01/11/22 13:16 DC 01/11/22 13:40 80 MG Glycerin/ Hypromellose/ Polyethylene (Artificial Tears) 1 drop PRN Q1HR PRN 12/30/21 21:30 01/06/22 18:08 1 DROP Heparin Sodium (Porcine) (Heparin Sodium) 5,000 unit Q8HRS 01/03/22 14:00 01/12/22 05:18 5,000 UNIT Hydralazine HCl (Apresoline Inj) 10 mg PRN Q4HRS PRN 12/24/21 20:15 01/08/22 11:39 10 MG Hydralazine HCl (Apresoline) 25 mg TID 01/11/22 13:00 01/12/22 07:55 25 MG Hydrochlorothiazide (Hydrodiuril) 25 mg DAILY 12/25/21 10:00 12/31/21 14:47 DC Insulin Human Lispro (HumaLOG) 0-9 UNITS Q6HRS 12/25/21 00:00 01/12/22 05:25 4 UNITS Labetalol HCl (Normodyne Iv Push) 20 mg PRN Q2HR PRN 12/26/21 13:30 01/11/22 12:38 20 MG Lactobacillus Rhamnosus (Culturelle) 1 cap BID 12/30/21 21:00 01/02/22 07:33 DC Lansoprazole (Prevacid) 30 mg DAILY 01/06/22 07:30 01/12/22 07:56 30 MG Linezolid/Dextrose 300 ml @ 300 mls/hr Q12HR 01/02/22 21:00 01/06/22 14:33 DC 01/06/22 09:30 300 MLS/HR Lorazepam (Ativan Inj) 2 mg PRN Q4HRS PRN 12/25/21 10:00 12/29/21 20:16 2 MG Losartan Potassium (Cozaar) 100 mg DAILY 12/25/21 10:00 12/31/21 14:46 DC Magnesium Sulfate 50 ml @ 25 mls/hr 1X ONCE 12/31/21 08:30 12/31/21 10:29 DC 12/31/21 09:06 25 MLS/HR Magnesium Sulfate/ Dextrose (Magnesium Sulfate PREMIX 1GM) 1 gm STK-MED ONCE 12/30/21 20:00 01/01/22 13:17 DC Midazolam HCl (Versed) 5 mg PRN 1X PRN 12/30/21 21:30 12/31/21 21:29 DC Montelukast Sodium (Singulair) 10 mg DAILY 12/25/21 10:00 01/12/22 07:56 10 MG Nicardipine HCl 50 mg/Sodium Chloride 250 ml @ 12.5 mls/hr CONT PRN 12/30/21 19:30 01/12/22 01:39 12.5 MLS/HR Nicotine (Nicoderm Cq 21mg) 1 patch DAILY 12/26/21 15:00 01/09/22 12:29 1 PATCH Nitroglycerin (Nitro-Bid Oint) 1 inch Q6HRS 12/26/21 18:00 01/12/22 05:19 1 INCH Olanzapine (ZyPREXA ZYDIS) 5 mg PRN BID PRN 12/24/21 20:15 12/24/21 22:49 5 MG Ondansetron HCl (Zofran) 4 mg PRN Q4HRS PRN 12/24/21 20:15 Pantoprazole Sodium (Protonix) 40 mg DAILYAC 12/25/21 11:30 12/29/21 12:07 DC Piperacillin Sod/ Tazobactam Sod (Zosyn Per Pharmacy) 1 each PRN DAILY PRN 12/30/21 04:30 01/06/22 14:34 DC Piperacillin Sod/ Tazobactam Sod 3.375 gm/Sodium Chloride 50 ml @ 100 mls/hr Q6HRS 12/30/21 06:00 01/06/22 14:33 DC 01/06/22 12:13 100 MLS/HR Potassium Bicarbonate (Potassium Effervescent Tablet) 40 meq 1X ONCE 01/02/22 17:45 01/02/22 17:47 DC 01/02/22 17:54 20 MEQ Potassium Chloride/Water 100 ml @ 100 mls/hr Q1H 01/05/22 08:00 01/05/22 09:59 DC 01/05/22 08:35 100 MLS/HR Propofol 100 ml @ 1.917 mls/ hr CONT PRN 12/30/21 21:30 01/12/22 01:38 11.502 MLS/HR Sodium Bicarbonate 150 meq/Dextrose 1,150 ml @ 75 mls/hr [id number] 12/30/21 11:00 12/31/21 08:24 DC 12/31/21 03:04 75 MLS/HR Sodium Bicarbonate (Sodium Bicarb Adult 8.4% Syr) 50 meq STK-MED ONCE 12/30/21 20:00 01/01/22 13:17 DC Sodium Chloride 1,000 ml @ 75 mls/hr [id number] 12/31/21 08:30 01/01/22 10:39 DC 01/01/22 04:01 75 MLS/HR Succinylcholine Chloride (Anectine) 200 mg STK-MED ONCE 12/30/21 20:00 01/01/22 09:12 DC Vancomycin HCl (Vanco Per Pharmacy) 1 each PRN DAILY PRN 12/30/21 10:30 01/02/22 09:58 DC 01/01/22 12:42 1 EACH Vancomycin HCl (Vancomycin Trough Level) 1 each 1X ONCE 01/03/22 10:30 01/03/22 10:31 Cancel Vancomycin HCl 1.5 gm/Sodium Chloride 500 ml @ 250 mls/hr 1X ONCE 12/30/21 11:00 12/30/21 12:59 DC 12/30/21 10:51 250 MLS/HR Vancomycin HCl 1 gm/Sodium Chloride 250 ml @ 250 mls/hr Q36H 01/01/22 23:00 01/02/22 09:58 DC 01/01/22 22:52 250 MLS/HR Vecuronium [place] (Norcuron Bolus) 6 mg PRN 1X PRN 12/30/21 21:30 12/31/21 21:29 DC Vitamin D (Vitamin D3) 1,000 unit DAILY 12/25/21 10:00 01/12/22 07:56 1,000 UNIT Lab Laboratory Tests Test 01/11/22 12:22 01/11/22 17:50 01/12/22 01:34 01/12/22 05:13 Glucose (Fingerstick) 210 mg/dL (70-99) 194 mg/dL (70-99) 190 mg/dL (70-99) 194 mg/dL (70-99) Results All relevant outside records, renal labs, imaging studies, telemetry/EKG's were reviewed. Justicifation of Admission Dx: Justifications for Admission: Justification of Admission Dx: Yes Stroke - Ischemic: Stroke-Ischemic VIKA WEST MD Jan 12, 2022 09:01
--- NOTE | 2022-01-12 09:14 | PDOC ---
PULMONARY PROGRESS NOTES DATE: 01/12/22 TIME: 09:14 Subjective Discussed with RN no overnight events patient currently on 30% FiO2 5 of PEEP Sedated Vitals Vital Signs Date Time Temp Pulse Resp B/P (MAP) Pulse Ox O2 Delivery O2 Flow Rate FiO2 01/12/22 08:00 Mechanical Ventilator 01/12/22 07:55 79 139/69 01/12/22 07:36 98 01/12/22 06:00 16 01/12/22 04:00 98.2 98.2 Comments ros unable to obtain sedated on vent HEENT: Other (nc at orally intubated nose clear neck no lad no thyromegaly) Lungs: Crackles Cardiovascular: S1, S2 Abdomen: Soft Extremities: Other Skin: Warm, Dry Labs Laboratory Tests Test 01/10/22 12:56 01/10/22 18:11 01/11/22 00:47 01/11/22 04:25 Glucose (Fingerstick) 217 mg/dL (70-99) 218 mg/dL (70-99) 219 mg/dL (70-99) Platelet Count 296 x10^3/uL (140-400) Sodium Level 139 mmol/L (136-145) Potassium Level 3.9 mmol/L (3.5-5.1) Chloride Level 104 mmol/L (98-107) Carbon Dioxide Level 25 mmol/L (21-32) Anion Gap 10 (6-14) Blood Urea Nitrogen 32 mg/dL (7-20) Creatinine 1.7 mg/dL (0.6-1.0) Estimated GFR (Cockcroft-Gault) 31.4 Glucose Level 202 mg/dL (70-99) Calcium Level 10.1 mg/dL (8.5-10.1) Test 01/11/22 06:19 01/11/22 12:22 01/11/22 17:50 01/12/22 01:34 Glucose (Fingerstick) 207 mg/dL (70-99) 210 mg/dL (70-99) 194 mg/dL (70-99) 190 mg/dL (70-99) Test 01/12/22 05:13 Glucose (Fingerstick) 194 mg/dL (70-99) Laboratory Tests Test 01/11/22 12:22 01/11/22 17:50 01/12/22 01:34 01/12/22 05:13 Glucose (Fingerstick) 210 mg/dL (70-99) 194 mg/dL (70-99) 190 mg/dL (70-99) 194 mg/dL (70-99) Medications Active Scripts Medications Dose Route/Sig Max Daily Dose Days Date Category Dose Instructions Montelukast Sodium 10 Mg Tablet 1 Tab PO DAILY 12/24/21 Reported Stool Softener (Docusate Sodium) 50 Mg Capsule 50 Mg PO BID 06/02/19 Reported [place] 5-325 Tablet (Acetaminophen/Hydrocodone Bitart) 1 Each Tablet 1 Tab PO Q4HRS 06/02/19 Reported LAST DOSE GIVEN: Lantus Solostar (Insulin Glargine,Hum.rec.anlog) 100 Unit/1 Ml Insuln.pen 21 Unit SQ QHS 06/02/19 Reported Culturelle (Lactobacillus Rhamnosus Gg) 1 Each Capsule 1 Each PO DAILY 06/01/19 Reported Alive Once Daily Women 50 Plus (Mv-Mn/Folic Acid/Vit K/[id number]) 1 Each Tablet 1 Each PO DAILY 06/01/19 Reported [place] 5-325 Tablet (Acetaminophen/Hydrocodone Bitart) 1 Each Tablet 1 Tab PO PRN Q6HRS PRN 06/01/19 Reported Tizanidine Hcl 4 Mg Tablet 2 Tab PO TID PRN 06/01/19 Reported Proair Hfa Inhaler (Albuterol Sulfate) 8.5 Gm Hfa.aer.ad 1 Puff INH PRN Q6HRS PRN 01/19/19 Reported Montelukast Sodium Tablet (Montelukast Sodium) 10 Mg Tablet 1 Tab PO DAILY 01/19/19 Reported Losartan-Hctz 100-25 Mg Tab (Losartan/Hydrochlorothiazide) 1 Each Tablet 1 Tab PO DAILY 01/19/19 Reported Protonix (Pantoprazole Sodium) 20 Mg Tablet.dr 1 Tab PO DAILY 01/19/19 Reported Vitamin D3 (Cholecalciferol (Vitamin D3)) 1,000 Unit Tablet 1 Tab PO DAILY 01/19/19 Reported Cetirizine Hcl 10 Mg Tablet 1 Tab PO DAILY 01/19/19 Reported Janumet 50-1,000 Mg Tablet (Sitagliptin Phos/Metformin Hcl) 1 Each Tablet 1 Tab PO BID 01/19/19 Reported Comments cxr reviewed ett ok b lat basilar atelectasis infilt Impression . Acute hypoxemic respiratory failure multifactorial metabolic encephalopathy Acute kidney injury, per nephrology Possible sepsis Hypomagnesemia hypokalemia Uncontrolled hypertension Severe metabolic acidosis CVA--positive MRI 12/25/2021, see MRI report COPD Thyroid disorder Status post PEG Plan . Updated 01/12 Nothing new to add we will continue current support Discussed with RN, family to make final decision on withdrawal Continue current support I had discussion with the family, this week, family to decide on withdrawing care VAIBHAV PARIKH MD Jan 12, 2022 09:14
--- NOTE | 2022-01-12 10:07 | PDOC ---
[employer] PROGRESS NOTE Date of Service DOS: DATE: 01/12/22 TIME: 10:05 Chief Complaint Chief Complaint Expressive aphasia unilateral weakness secondary to 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 Acute respiratory failure requiring BiPAP support Concern for early sepsis Dehydration Metabolic acidosis Acute electrolyte derangement, hypernatremia and hyperchloremia-possible dehydration History hypertension History of diabetes diabetes History of Present Illness History of Present Illness 01/12/2022 Patient seen and examined in the ICU She remains on the ventilator AC/16/400/40 percent with 5 of PEEP PEG running at 30 cc an hour Sedated with fentanyl and propofol Has Cardene drip Maintenance IV running Discussed with RN Chart reviewed Discussed with case management Family still considering withdrawing care 01/11/2022 Patient seen and examined in the ICU Discussed with RN Chart reviewed She remains on the ventilator AC/16/400/40 percent with 5 of PEEP Berumen bedside drainage Still has a rectal bag Sedated with fentanyl propofol Also has a maintenance IV PEG running at 30 cc an hour Still on Cardene drip Still critically ill 01/10/2022 Patient seen and examined in the ICU She remains on the ventilator AC/16/400/30 percent with 5 of PEEP Rectal bag now in place Berumen to bedside drainage Art line in place with pressure 169/64 Has fentanyl propofol Cardene and maintenance IV hanging OG feed running at 30 cc an hour Discussed with RN Chart reviewed 01/09/2022 Patient seen and examined in the ICU She remains on the ventilator AC/16/400/30 percent with 5 of PEEP Art line showing a pressure 150/63 Berumen bedside drainage PEG running at 30 cc an hour Still has a Cardene drip Sedated with propofol and fentanyl Chart reviewed Discussed with RN We are considering comfort care 01/08/2022 Patient seen and examined in the ICU She remains on the ventilator AC/16/400/30 percent with 5 of PEEP Discussed with GI nurse practitioner Discussed with RN Chart reviewed Patient's art line shows a pressure 168/62 Full to bedside drainage Sedated with propofol and fentanyl OG running at 30 cc an hour Still on Cardene drip 01/07/2020 Patient seen and examined in the ICU She remains on the ventilator AC/16/400/30 percent with 5 of PEEP Berumen to bedside drainage Art line in place with a pressure 149/61 PEG feeds running She is sedated with propofol fentanyl Also has a Cardene drip running She remains critically ill Discussed with RN Chart reviewed 01/06/2022 Patient seen and examined in the ICU She remains on the vent AC/16/400/30 percent with five of PEEP Has PEG feed running at 30 cc an hour Has Berumen to bedside drainage Zyvox hanging IV Sedated with propofol and fentanyl Has Cardene drip running Discussed with RN Chart reviewed She remains critically ill 01/05/2022 Patient seen and examined in the ICU again She remains on the vent AC/16/400/30 percent with 5 of PEEP Has her new PEG feeds running at 30 cc an hour Sedated with fentanyl Still requiring Cardene drip 01/04/2022 Patient seen and examined in the ICU She is on the vent AC/16/400/30 percent with 5 of PEEP (satting 100% and has a pH of 7.44) Art line in place Sedated with propofol and fentanyl PEG feed running at 30 cc an hour On Cardene drip but I discussed with RN working to titrate that off and start per PEG Norvasc Chart reviewed She remains critically ill 01/03/2022 Patient seen and examined in the ICU She remains on the vent AC/16/400/30 percent with 5 of PEEP Discussed with RN, the patient's urine output is a low Currently sedated with propofol Has IV Zosyn and IV Zyvox NG running at 30 cc an hour Has Berumen to bedside drainage ABIs are in place Art line appears clean dry intact and functioning well Chart reviewed She remains critically ill 01/02/2022 Patient seen and examined in the ICU She got her PEG yesterday but then apparently aspirated and had to be intubated Vent settings as follows AC/16/400/30 5% with 5 of PEEP Sedated with propofol fentanyl Has IV Zosyn hanging D5 water also hanging Creatinine bumped up a little bit (I called the pharmacy working to stop the Vanco and start Zyvox) Chart reviewed Discussed with RN She is critically ill 01/01/2022 Patient seen and examined in the ICU She remains on the vent AC/16/400/30 5% with 5 of PEEP Art line in place Sedated with propofol and fentanyl Has half-normal saline hanging with Zosyn Berumen to bedside drainage Chart reviewed Discussed with RN 12/31 Patient evaluated examined at bedside. She required intubation overnight and is currently intubated and sedated. Patient was intubated after family decided on continuing full treatment measures. Blood pressure improved. When seen patient unresponsive no withdrawal to pain. Pupils do still have reflex. Continue current. Nephrology pulmonology following. 45 minutes critical care time 12/30/2021 Rapid response called last night for desaturations down to the 70s. Labs were obtained showing hypernatremia. Patient still unresponsive and placed on BiPAP. ABG showed 7.1 7/40/74/14. Concern for aspiration, worsening of stroke, or dehydration. Nephrology and pulmonology consulted. Patient transferred to the ICU. Empiric IV antibiotics are started and blood cultures are obtained. D5 bicarb drip started. Patient's chart, labs, images were reviewed and discussed with RN 12/29/21 No acute events overnight. Patient seen examined bedside. Sleeping in bed and unable to be arousable with sternal rub or to voice. Patient unable to follow through with speech evaluation. Will need to consider TPN for nutrition. Medicaid application pending. Patient's chart, labs, images were reviewed and discussed with RN 12/28 Patient evaluated examined at bedside. She was sleeping in bed unable to get her to open her eyes even with sternal rub. Some withdrawal to pain in the right lower extremity none in right upper extremity. Unable to follow commands to see if she could hold her arm against gravity. Still having some trouble controlling blood pressure is still on Cardene drip for now. Will schedule Vasotec and try to start weaning off the Cardene drip. 12/27 Evaluated and examined at bedside. She was resting in bed not easily awoken and still cannot provide me really with any history given her aphasic state. She did have some withdrawal to pain in the right lower extremity still no movement and right upper. PT OT. Neuro following. Plan discussed bedside RN. 12/26 Evaluated and examined at bedside. Is a bit lethargic today difficulty staying awake this morning. MRI showing acute infarcts. Neurology continues to follow. Patient remains aphasic. Therapy modalities. Blood pressure control with IV until able to take oral Okay to transfer out of ICU to CVC if bed is needed Vitals/I&O Vitals/I&O: Vital Signs Date Time Temp Pulse Resp B/P (MAP) Pulse Ox O2 Delivery O2 Flow Rate FiO2 01/12/22 09:00 78 16 129/63 99 Ventilator 01/12/22 08:00 97.9 97.9 I & O 01/11/22 01/11/22 01/12/22 14:59 22:59 06:59 Intake Total 260 ml 1776 ml 1360.4 ml Output Total 275 ml 875 ml 900 ml Balance -15 ml 901 ml 460.4 ml Physical Exam General: Other (Sedated on the vent) Heart: Regular rate Lungs: Crackles Abdomen: Other (New PEG tube in place) Extremities: No clubbing Skin: No breakdown Labs Labs: Laboratory Tests Test 01/11/22 12:22 01/11/22 17:50 01/12/22 01:34 01/12/22 05:13 Glucose (Fingerstick) 210 mg/dL (70-99) 194 mg/dL (70-99) 190 mg/dL (70-99) 194 mg/dL (70-99) Assessment and Plan Assessmemt and Plan Stroke (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) Respiratory failure New PEG Expressive aphasia unilateral weakness secondary to 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 Resolving sepsis Dehydration Hyponatremia Hypokalemia Hypomagnesemia Metabolic acidosis Acute electrolyte derangement, hypernatremia and hyperchloremia-possible dehydration History hypertension History of diabetes diabetes Plan We are considering going to comfort care if family would agree For now continue the following; ICU monitoring Vent weaning Still trying to wean off the Cardene drip Continue hydralazine Continue sedation with propofol fentanyl Monitor art line Maintain Berumen Continue PEG feeds Follow cultures Appreciate subspecialist input (nephrology gastroenterology neurology and pulmonary medicine) Trend labs Statins Aspirin DVT prophylaxis with [place] DNR Sliding-scale insulin Prognosis extremely guarded at best CC time 32 minutes Comment Review of Relevant I have reviewed the following items chino (where applicable) has been applied. Medications: Current Medications Medications (Trade) Dose Ordered Sig/Fabio Route PRN Reason Start Time Stop Time Status Last Admin Dose Admin Hydralazine HCl (Apresoline) 25 mg TID PO 01/11/22 13:00 01/12/22 07:55 Furosemide (Lasix) 80 mg 1X ONCE IVP 01/11/22 13:15 01/11/22 13:16 DC 01/11/22 13:40 Justifications for Admission TIA Indications Persistent neurologic signs?: Yes Justification for admission: There is persistence of patient's focal neurologic signs or symptoms or there is concern for recurrence of patient's neurological signs and symptoms. Severe hypertension?: Yes Justification for admission: There is concern for patient's severe hypertension of (>180/110mmHg--please indicate patient's BP here) that has not been controlled by ED treatment. Patient needs inpatient level of care for further evaluation and management. Other Justification JAGDISH ONEIL III DO Jan 12, 2022 10:07
--- NOTE | 2022-01-12 10:28 | PDOC ---
Date of Service: DATE: 01/12/22 TIME: 10:27 Objective: Objective: D/w nurse - no decision from family, PEG functioning beautifully. Vital Signs: Vital Signs Date Time Temp Pulse Resp B/P (MAP) Pulse Ox O2 Delivery O2 Flow Rate FiO2 01/12/22 09:00 78 16 129/63 99 Ventilator 01/12/22 08:00 97.9 97.9 Labs: Laboratory Tests Test 01/11/22 12:22 01/11/22 17:50 01/12/22 01:34 01/12/22 05:13 Glucose (Fingerstick) 210 mg/dL (70-99) 194 mg/dL (70-99) 190 mg/dL (70-99) 194 mg/dL (70-99) PE: GEN: intubated LUNGS: vent ABD: soft, PEG feeds running NEURO/PSYCH: sedated A/P: Bilateral thalamic infarcts s/p PEG -- PEG functioning. Justicifation of Admission Dx: Justifications for Admission: Justification of Admission Dx: Yes Stroke - Ischemic: Stroke-Ischemic SHANICE RAE Jan 12, 2022 10:28
--- NOTE | 2022-01-12 16:28 | NUR ---
1620- Casa at bedside, stated that they will withdraw care on Saturday afternoon d/t family that wants to see Celsa this weekend. He also was inquiring about patient's drivers license saying that she was a donor, and if she would be a candidate or not. I explained to him I didn't know the answer to that, but I would find out for him. After he had left I called [facility] to explain to them the situation and that if she would be a cardiac time of candidate, the family would be open to a conversation. [facility]orn stated tat d/t her age she was not a candidate for cardiac time of . [facility] is ok to withdraw care and call with time of , unless her neuro status were to change before then.
[2022-01-12] MEDS: ATORVASTATIN CALCIUM 40 MG TABLET. PO SCH (21:38)
[2022-01-13] VITALS (24 sets, daily range): BP systolic 106–154; BP diastolic 54–77
[2022-01-13] MEDS: INSULIN LISPRO 300 UNITS/3 ML VIAL. SQ SCH ×4 (01:13→17:38)
[2022-01-13] MEDS: PROPOFOL 100 ML IV PRN ×3 (01:55→14:25)
[2022-01-13] MEDS: HEPARIN for SUB-Q USE 5,000 UNIT/ML VIAL. SQ SCH ×3 (06:20→22:11)
[2022-01-13] MEDS: NITROGLYCERIN OINT 1 GM PACKET. TP SCH ×4 (06:22→17:38)
--- NOTE | 2022-01-13 06:41 | PDOC ---
PULMONARY PROGRESS NOTES DATE: 01/13/22 TIME: 06:38 Subjective on vent peep 5 fio2 40% sedated on fentanyl propofol Vitals Vital Signs Date Time Temp Pulse Resp B/P (MAP) Pulse Ox O2 Delivery O2 Flow Rate FiO2 01/13/22 06:22 92 154/75 01/13/22 06:00 16 100 Ventilator 01/13/22 04:00 98.2 98.2 Comments ros unable to obtain sedated on vent HEENT: Other (nc at orally intubated nose clear neck no lad no thyromegaly) Lungs: Crackles Cardiovascular: S1, S2 Abdomen: Soft Extremities: Other Skin: Warm, Dry Labs Laboratory Tests Test 01/11/22 12:22 01/11/22 17:50 01/12/22 01:34 01/12/22 05:13 Glucose (Fingerstick) 210 mg/dL (70-99) 194 mg/dL (70-99) 190 mg/dL (70-99) 194 mg/dL (70-99) Test 01/12/22 12:16 01/12/22 17:11 01/13/22 01:09 01/13/22 06:20 Glucose (Fingerstick) 192 mg/dL (70-99) 157 mg/dL (70-99) 189 mg/dL (70-99) 177 mg/dL (70-99) Laboratory Tests Test 01/12/22 12:16 01/12/22 17:11 01/13/22 01:09 01/13/22 06:20 Glucose (Fingerstick) 192 mg/dL (70-99) 157 mg/dL (70-99) 189 mg/dL (70-99) 177 mg/dL (70-99) Medications Active Scripts Medications Dose Route/Sig Max Daily Dose Days Date Category Dose Instructions Montelukast Sodium 10 Mg Tablet 1 Tab PO DAILY 12/24/21 Reported Stool Softener (Docusate Sodium) 50 Mg Capsule 50 Mg PO BID 06/02/19 Reported [place] 5-325 Tablet (Acetaminophen/Hydrocodone Bitart) 1 Each Tablet 1 Tab PO Q4HRS 06/02/19 Reported LAST DOSE GIVEN: Lantus Solostar (Insulin Glargine,Hum.rec.anlog) 100 Unit/1 Ml Insuln.pen 21 Unit SQ QHS 06/02/19 Reported Culturelle (Lactobacillus Rhamnosus Gg) 1 Each Capsule 1 Each PO DAILY 06/01/19 Reported Alive Once Daily Women 50 Plus (Mv-Mn/Folic Acid/Vit K/[id number]) 1 Each Tablet 1 Each PO DAILY 06/01/19 Reported [place] 5-325 Tablet (Acetaminophen/Hydrocodone Bitart) 1 Each Tablet 1 Tab PO PRN Q6HRS PRN 06/01/19 Reported Tizanidine Hcl 4 Mg Tablet 2 Tab PO TID PRN 06/01/19 Reported Proair Hfa Inhaler (Albuterol Sulfate) 8.5 Gm Hfa.aer.ad 1 Puff INH PRN Q6HRS PRN 01/19/19 Reported Montelukast Sodium Tablet (Montelukast Sodium) 10 Mg Tablet 1 Tab PO DAILY 01/19/19 Reported Losartan-Hctz 100-25 Mg Tab (Losartan/Hydrochlorothiazide) 1 Each Tablet 1 Tab PO DAILY 01/19/19 Reported Protonix (Pantoprazole Sodium) 20 Mg Tablet.dr 1 Tab PO DAILY 01/19/19 Reported Vitamin D3 (Cholecalciferol (Vitamin D3)) 1,000 Unit Tablet 1 Tab PO DAILY 01/19/19 Reported Cetirizine Hcl 10 Mg Tablet 1 Tab PO DAILY 01/19/19 Reported Janumet 50-1,000 Mg Tablet (Sitagliptin Phos/Metformin Hcl) 1 Each Tablet 1 Tab PO BID 01/19/19 Reported Comments cxr reviewed ett ok b lat basilar atelectasis infilt Impression . Acute hypoxemic respiratory failure multifactorial metabolic encephalopathy Acute kidney injury, per nephrology Possible sepsis Hypomagnesemia hypokalemia Uncontrolled hypertension Severe metabolic acidosis CVA--positive MRI 12/25/2021, see MRI report COPD Thyroid disorder Status post PEG Plan . 01/13 cont vent support setting reviewed elevate hob ABG cxr reviewed Status post PEG prognosis poor DNR family to make final decision on withdrawal discussed w rn Updated 01/12 Nothing new to add we will continue current support Discussed with RN, family to make final decision on withdrawal Continue current support I had discussion with the family, this week, family to decide on withdrawing care BROOKS SOLANO MD Jan 13, 2022 06:41
[2022-01-13] MEDS: IPRATRPIUM/ALBUTEROL 0.5/2.5MG 3 ML NEBU. NEB SCH ×4 (07:50→20:00)
[2022-01-13] MEDS: CETIRIZINE HCL 10 MG TABLET. PO SCH (07:59)
[2022-01-13] MEDS: LANSOPRAZOLE 30 MG TAB.RAP.DR FT SCH (07:59)
[2022-01-13] MEDS: hydrALAZINE 25 MG TABLET PO SCH ×3 (07:59→20:50)
[2022-01-13] MEDS: MONTELUKAST SODIUM 10 MG TABLET. PO SCH (07:59)
[2022-01-13] MEDS: ASPIRIN CHEWABLE 81 MG TABLET. PO SCH (08:00)
[2022-01-13] MEDS: CHOLECALCIFEROL (VITAMIN D3) 1,000 UNIT TABLET PO SCH (08:02)
[2022-01-13] MEDS: NICOTINE 21MG PATCH. TD SCH (08:05)
--- NOTE | 2022-01-13 08:38 | PDOC ---
[employer] PROGRESS NOTE Date of Service DOS: DATE: 01/13/22 TIME: 08:37 Chief Complaint Chief Complaint Expressive aphasia unilateral weakness secondary to 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 Acute respiratory failure requiring BiPAP support Concern for early sepsis Dehydration Metabolic acidosis Acute electrolyte derangement, hypernatremia and hyperchloremia-possible dehydration History hypertension History of diabetes diabetes History of Present Illness History of Present Illness 01/13: Seen in ICU on ventilator sedated. AC mode 40% FiO2 PEEP of 5. No significant residuals on tube feeds. Cardene gtt. on hold right now blood pressure is better managed with minimal sedation wean blood pressure significant increases. 01/12/2022 Patient seen and examined in the ICU She remains on the ventilator AC/16/400/40 percent with 5 of PEEP PEG running at 30 cc an hour Sedated with fentanyl and propofol Has Cardene drip Maintenance IV running Discussed with RN Chart reviewed Discussed with case management Family still considering withdrawing care 01/11/2022 Patient seen and examined in the ICU Discussed with RN Chart reviewed She remains on the ventilator AC/16/400/40 percent with 5 of PEEP Berumen bedside drainage Still has a rectal bag Sedated with fentanyl propofol Also has a maintenance IV PEG running at 30 cc an hour Still on Cardene drip Still critically ill 01/10/2022 Patient seen and examined in the ICU She remains on the ventilator AC/16/400/30 percent with 5 of PEEP Rectal bag now in place Berumen to bedside drainage Art line in place with pressure 169/64 Has fentanyl propofol Cardene and maintenance IV hanging OG feed running at 30 cc an hour Discussed with RN Chart reviewed 01/09/2022 Patient seen and examined in the ICU She remains on the ventilator AC/16/400/30 percent with 5 of PEEP Art line showing a pressure 150/63 Berumen bedside drainage PEG running at 30 cc an hour Still has a Cardene drip Sedated with propofol and fentanyl Chart reviewed Discussed with RN We are considering comfort care 01/08/2022 Patient seen and examined in the ICU She remains on the ventilator AC/16/400/30 percent with 5 of PEEP Discussed with GI nurse practitioner Discussed with RN Chart reviewed Patient's art line shows a pressure 168/62 Full to bedside drainage Sedated with propofol and fentanyl OG running at 30 cc an hour Still on Cardene drip 01/07/2020 Patient seen and examined in the ICU She remains on the ventilator AC/16/400/30 percent with 5 of PEEP Berumen to bedside drainage Art line in place with a pressure 149/61 PEG feeds running She is sedated with propofol fentanyl Also has a Cardene drip running She remains critically ill Discussed with RN Chart reviewed 01/06/2022 Patient seen and examined in the ICU She remains on the vent AC/16/400/30 percent with five of PEEP Has PEG feed running at 30 cc an hour Has Berumen to bedside drainage Zyvox hanging IV Sedated with propofol and fentanyl Has Cardene drip running Discussed with RN Chart reviewed She remains critically ill 01/05/2022 Patient seen and examined in the ICU again She remains on the vent AC/16/400/30 percent with 5 of PEEP Has her new PEG feeds running at 30 cc an hour Sedated with fentanyl Still requiring Cardene drip 01/04/2022 Patient seen and examined in the ICU She is on the vent AC/16/400/30 percent with 5 of PEEP (satting 100% and has a pH of 7.44) Art line in place Sedated with propofol and fentanyl PEG feed running at 30 cc an hour On Cardene drip but I discussed with RN working to titrate that off and start per PEG Norvasc Chart reviewed She remains critically ill 01/03/2022 Patient seen and examined in the ICU She remains on the vent AC/16/400/30 percent with 5 of PEEP Discussed with RN, the patient's urine output is a low Currently sedated with propofol Has IV Zosyn and IV Zyvox NG running at 30 cc an hour Has Berumen to bedside drainage ABIs are in place Art line appears clean dry intact and functioning well Chart reviewed She remains critically ill 01/02/2022 Patient seen and examined in the ICU She got her PEG yesterday but then apparently aspirated and had to be intubated Vent settings as follows AC/16/400/30 5% with 5 of PEEP Sedated with propofol fentanyl Has IV Zosyn hanging D5 water also hanging Creatinine bumped up a little bit (I called the pharmacy working to stop the Vanco and start Zyvox) Chart reviewed Discussed with RN She is critically ill 01/01/2022 Patient seen and examined in the ICU She remains on the vent AC/16/400/30 5% with 5 of PEEP Art line in place Sedated with propofol and fentanyl Has half-normal saline hanging with Zosyn Berumen to bedside drainage Chart reviewed Discussed with RN 12/31 Patient evaluated examined at bedside. She required intubation overnight and is currently intubated and sedated. Patient was intubated after family decided on continuing full treatment measures. Blood pressure improved. When seen patient unresponsive no withdrawal to pain. Pupils do still have reflex. Continue current. Nephrology pulmonology following. 45 minutes critical care time 12/30/2021 Rapid response called last night for desaturations down to the 70s. Labs were o btained showing hypernatremia. Patient still unresponsive and placed on BiPAP. ABG showed 7.1 /. Concern for aspiration, worsening of stroke, or dehydration. Nephrology and pulmonology consulted. Patient transferred to the ICU. Empiric IV antibiotics are started and blood cultures are obtained. D5 bicarb drip started. Patient's chart, labs, images were reviewed and discussed with RN 12/29/21 No acute events overnight. Patient seen examined bedside. Sleeping in bed and unable to be arousable with sternal rub or to voice. Patient unable to follow through with speech evaluation. Will need to consider TPN for nutrition. Medicaid application pending. Patient's chart, labs, images were reviewed and discussed with RN 12/28 Patient evaluated examined at bedside. She was sleeping in bed unable to get her to open her eyes even with sternal rub. Some withdrawal to pain in the right lower extremity none in right upper extremity. Unable to follow commands to see if she could hold her arm against gravity. Still having some trouble controlling blood pressure is still on Cardene drip for now. Will schedule Vasotec and try to start weaning off the Cardene drip. 12/27 Evaluated and examined at bedside. She was resting in bed not easily awoken and still cannot provide me really with any history given her aphasic state. She did have some withdrawal to pain in the right lower extremity still no movement and right upper. PT OT. Neuro following. Plan discussed bedside RN. 12/26 Evaluated and examined at bedside. Is a bit lethargic today difficulty staying awake this morning. MRI showing acute infarcts. Neurology continues to follow. Patient remains aphasic. Therapy modalities. Blood pressure control with IV until able to take oral Okay to transfer out of ICU to CVC if bed is needed Vitals/I&O Vitals/I&O: Vital Signs Date Time Temp Pulse Resp B/P (MAP) Pulse Ox O2 Delivery O2 Flow Rate FiO2 01/13/22 08:00 99.5 87 16 143/70 100 Ventilator 99.5 I & O 01/12/22 01/12/22 01/13/22 15:00 23:00 07:00 Intake Total 716 ml 808 ml 1389.7 ml Output Total 475 ml 575 ml 500 ml Balance 241 ml 233 ml 889.7 ml Physical Exam General: Other (Sedated on the vent) Heart: Regular rate Lungs: Crackles Abdomen: Other (New PEG tube in place) Extremities: No clubbing Skin: No breakdown Labs Labs: Laboratory Tests Test 01/12/22 12:16 01/12/22 17:11 01/13/22 01:09 01/13/22 06:20 Glucose (Fingerstick) 192 mg/dL (70-99) 157 mg/dL (70-99) 189 mg/dL (70-99) 177 mg/dL (70-99) Comment Review of Relevant I have reviewed the following items chino (where applicable) has been applied. Justifications for Admission TIA Indications Persistent neurologic signs?: Yes Justification for admission: There is persistence of patient's focal neurologic signs or symptoms or there is concern for recurrence of patient's neurological signs and symptoms. Severe hypertension?: Yes Justification for admission: There is concern for patient's severe hypertension of (>180/110mmHg--please indicate patient's BP here) that has not been controlled by ED treatment. Patient needs inpatient level of care for further evaluation and management. Other Justification JUDY SHAH MD Jan 13, 2022 08:38
--- NOTE | 2022-01-13 12:50 | PDOC ---
DATE OF SERVICE DATE: 01/13/22 TIME: 12:48 SUBJECTIVE ROS Remains Intubated , stable OBJECTIVE Vital Signs Vital Signs Date Time Temp Pulse Resp B/P (MAP) Pulse Ox O2 Delivery O2 Flow Rate FiO2 01/13/22 11:30 82 113/54 01/13/22 11:26 100 Ventilator 01/13/22 11:00 16 01/13/22 08:00 99.5 99.5 I & 0 Intake and Output 01/13/22 07:00 Intake Total 2913.7 ml Output Total 1550 ml Balance 1363.7 ml IV Total 647.7 ml Tube Feeding 1486 ml Other 780 ml Output Urine Total 1550 ml PHYSICAL EXAM Physical Exam General Appearance: Intubated HEEN ETT + Skin: warm, No rash Respiratory: bilateral CTA ant Heart: S1S2 Abdomen: soft, bowel sounds present Genitourinary: [place] Extremities: No LE edema , No cyanosis Neurology: sedated DIAGNOSIS/ASSESSMENT Assessment & Plan MICHELET - Improved to her baseline , Non Oliguric, Lasix IV prn, . Discussed with RN Order am labs depending on goals of care- discussed with nursing ; supportive care, maintain fluid balance, avoid Nephrotoxins Acute respiratory failure - Intubated on MV HyperNatremia - Resolved HypoKalemia - Normal K Anemia- Hgb trended down, last H &H 01/01 defer to primary ? CKD stage 3 Creat 2,1 in 2019 x 1 , No interval labs CVA- Expressive aphasia unilateral weakness Bilat Thalamic Infarcts and posterior limbs of the internal capsule and the right caudate nucleus. HTN- stable, antihypertensives DM II- primary managing COMMENT/RELEVANT DATA Meds Current Medications Medications (Trade) Dose Ordered Sig/Fabio Start Time Stop Time Status Last Admin Dose Admin Acetaminophen (Tylenol Supp) 650 mg PRN Q6HRS PRN 12/24/21 20:15 Acetaminophen (Tylenol) 650 mg PRN Q6HRS PRN 12/24/21 20:15 12/24/21 20:17 DC Albuterol Sulfate (Ventolin Neb Soln) 2.5 mg PRN Q4HRS PRN 12/30/21 02:00 12/30/21 01:55 2.5 MG Albuterol/ Ipratropium (Duoneb) 3 ml RTQID 12/30/21 12:00 01/13/22 11:26 3 ML Amiodarone HCl (Cordarone) 300 mg STK-MED ONCE 12/30/21 20:00 01/01/22 13:17 DC Amlodipine Besylate (Norvasc) 10 mg DAILY 01/04/22 10:00 01/13/22 08:00 10 MG Aspirin (Aspirin Chewable) 162 mg [id number] 01/03/22 08:00 01/13/22 08:00 162 MG Aspirin (Aspirin Rectal Supp) 300 mg DAILY 12/30/21 11:00 01/02/22 15:08 DC 01/02/22 09:42 300 MG Atorvastatin Calcium (Lipitor) 80 mg QHS 12/24/21 21:00 01/12/22 21:38 80 MG Atropine Sulfate (ATROPINE 0.5mg SYRINGE) 0.5 mg PRN Q5MIN PRN 12/30/21 21:30 Bisacodyl (Dulcolax Supp) 10 mg PRN DAILY PRN 12/24/21 20:15 UNV Cefazolin Sodium (Ancef) 1 gm 1X ONCE 01/01/22 13:30 01/01/22 08:01 DC Cetirizine HCl (ZyrTEC) 10 mg DAILY 12/25/21 10:00 01/13/22 07:59 10 MG Chlorhexidine Gluconate (Peridex) 15 ml BID 12/31/21 09:00 01/06/22 17:10 DC 01/05/22 20:43 15 ML Clonidine HCl (Catapres Tts-2) 1 patch WEEKLY 12/26/21 15:00 01/09/22 09:00 1 PATCH Dexmedetomidine HCl 400 mcg/ Sodium Chloride 100 ml @ 3.195 mls/ hr CONT PRN 12/30/21 21:30 Dextrose 1,000 ml @ 75 mls/hr [id number] 01/01/22 10:45 01/02/22 16:48 DC 01/02/22 05:15 75 MLS/HR Dextrose (Dextrose 50%-Water Syringe) 12.5 gm PRN Q15MIN PRN 12/24/21 20:15 Dextrose (Iv Dextrose 5%) 250 ml PRN Q15MIN PRN 12/24/21 20:15 Diltiazem HCl 125 mg/Sodium Chloride 125 ml @ 5 mls/hr CONT PRN 12/30/21 18:15 12/30/21 19:20 DC Enalaprilat (Vasotec Inj) 1.25 mg Q6HRS 12/28/21 12:00 12/31/21 14:47 DC 12/30/21 12:54 1.25 MG Epinephrine HCl (EPINEPHrine SYRINGE) 3 mg STK-MED ONCE 12/30/21 20:00 01/01/22 13:17 DC Etomidate (Amidate) 20 mg STK-MED ONCE 12/30/21 20:00 01/01/22 09:12 DC Famotidine (Pepcid Vial) 20 mg DAILY 12/27/21 09:00 01/05/22 10:49 DC 01/05/22 08:09 20 MG Fentanyl Citrate 30 ml @ 0 mls/hr CONT PRN 12/30/21 21:30 01/13/22 05:53 2.5 MLS/HR Furosemide (Lasix) 80 mg 1X ONCE 01/11/22 13:15 01/11/22 13:16 DC 01/11/22 13:40 80 MG Glycerin/ Hypromellose/ Polyethylene (Artificial Tears) 1 drop PRN Q1HR PRN 12/30/21 21:30 01/06/22 18:08 1 DROP Heparin Sodium (Porcine) (Heparin Sodium) 5,000 unit Q8HRS 01/03/22 14:00 01/13/22 06:20 5,000 UNIT Hydralazine HCl (Apresoline Inj) 10 mg PRN Q4HRS PRN 12/24/21 20:15 01/08/22 11:39 10 MG Hydralazine HCl (Apresoline) 25 mg TID 01/11/22 13:00 01/13/22 07:59 25 MG Hydrochlorothiazide (Hydrodiuril) 25 mg DAILY 12/25/21 10:00 12/31/21 14:47 DC Insulin Human Lispro (HumaLOG) 0-9 UNITS Q6HRS 12/25/21 00:00 01/13/22 12:39 4 UNITS Labetalol HCl (Normodyne Iv Push) 20 mg PRN Q2HR PRN 12/26/21 13:30 01/11/22 12:38 20 MG Lactobacillus Rhamnosus (Culturelle) 1 cap BID 12/30/21 21:00 01/02/22 07:33 DC Lansoprazole (Prevacid) 30 mg DAILY 01/06/22 07:30 01/13/22 07:59 30 MG Linezolid/Dextrose 300 ml @ 300 mls/hr Q12HR 01/02/22 21:00 01/06/22 14:33 DC 01/06/22 09:30 300 MLS/HR Lorazepam (Ativan Inj) 2 mg PRN Q4HRS PRN 12/25/21 10:00 12/29/21 20:16 2 MG Losartan Potassium (Cozaar) 100 mg DAILY 12/25/21 10:00 12/31/21 14:46 DC Magnesium Sulfate 50 ml @ 25 mls/hr 1X ONCE 12/31/21 08:30 12/31/21 10:29 DC 12/31/21 09:06 25 MLS/HR Magnesium Sulfate/ Dextrose (Magnesium Sulfate PREMIX 1GM) 1 gm STK-MED ONCE 12/30/21 20:00 01/01/22 13:17 DC Midazolam HCl (Versed) 5 mg PRN 1X PRN 12/30/21 21:30 12/31/21 21:29 DC Montelukast Sodium (Singulair) 10 mg DAILY 12/25/21 10:00 01/13/22 07:59 10 MG Nicardipine HCl 50 mg/Sodium Chloride 250 ml @ 12.5 mls/hr CONT PRN 12/30/21 19:30 01/12/22 01:39 12.5 MLS/HR Nicotine (Nicoderm Cq 21mg) 1 patch DAILY 12/26/21 15:00 01/09/22 12:29 1 PATCH Nitroglycerin (Nitro-Bid Oint) 1 inch Q6HRS 12/26/21 18:00 01/13/22 11:30 1 INCH Olanzapine (ZyPREXA ZYDIS) 5 mg PRN BID PRN 12/24/21 20:15 12/24/21 22:49 5 MG Ondansetron HCl (Zofran) 4 mg PRN Q4HRS PRN 12/24/21 20:15 Pantoprazole Sodium (Protonix) 40 mg DAILYAC 12/25/21 11:30 12/29/21 12:07 DC Piperacillin Sod/ Tazobactam Sod (Zosyn Per Pharmacy) 1 each PRN DAILY PRN 12/30/21 04:30 01/06/22 14:34 DC Piperacillin Sod/ Tazobactam Sod 3.375 gm/Sodium Chloride 50 ml @ 100 mls/hr Q6HRS 12/30/21 06:00 01/06/22 14:33 DC 01/06/22 12:13 100 MLS/HR Potassium Bicarbonate (Potassium Effervescent Tablet) 40 meq 1X ONCE 01/02/22 17:45 01/02/22 17:47 DC 01/02/22 17:54 20 MEQ Potassium Chloride/Water 100 ml @ 100 mls/hr Q1H 01/05/22 08:00 01/05/22 09:59 DC 01/05/22 08:35 100 MLS/HR Propofol 100 ml @ 1.917 mls/ hr CONT PRN 12/30/21 21:30 01/13/22 07:58 11.502 MLS/HR Sodium Bicarbonate 150 meq/Dextrose 1,150 ml @ 75 mls/hr [id number] 12/30/21 11:00 12/31/21 08:24 DC 12/31/21 03:04 75 MLS/HR Sodium Bicarbonate (Sodium Bicarb Adult 8.4% Syr) 50 meq STK-MED ONCE 12/30/21 20:00 01/01/22 13:17 DC Sodium Chloride 1,000 ml @ 75 mls/hr [id number] 12/31/21 08:30 01/01/22 10:39 DC 01/01/22 04:01 75 MLS/HR Succinylcholine Chloride (Anectine) 200 mg STK-MED ONCE 12/30/21 20:00 01/01/22 09:12 DC Vancomycin HCl (Vanco Per Pharmacy) 1 each PRN DAILY PRN 12/30/21 10:30 01/02/22 09:58 DC 01/01/22 12:42 1 EACH Vancomycin HCl (Vancomycin Trough Level) 1 each 1X ONCE 01/03/22 10:30 01/03/22 10:31 Cancel Vancomycin HCl 1.5 gm/Sodium Chloride 500 ml @ 250 mls/hr 1X ONCE 12/30/21 11:00 12/30/21 12:59 DC 12/30/21 10:51 250 MLS/HR Vancomycin HCl 1 gm/Sodium Chloride 250 ml @ 250 mls/hr Q36H 01/01/22 23:00 01/02/22 09:58 DC 01/01/22 22:52 250 MLS/HR Vecuronium [place] (Norcuron Bolus) 6 mg PRN 1X PRN 12/30/21 21:30 12/31/21 21:29 DC Vitamin D (Vitamin D3) 1,000 unit DAILY 12/25/21 10:00 01/13/22 08:02 1,000 UNIT Lab Laboratory Tests Test 01/12/22 17:11 01/13/22 01:09 01/13/22 06:20 01/13/22 08:10 Glucose (Fingerstick) 157 mg/dL (70-99) 189 mg/dL (70-99) 177 mg/dL (70-99) Triglycerides Level 248 mg/dL (0-150) Test 01/13/22 12:37 Glucose (Fingerstick) 161 mg/dL (70-99) Results All relevant outside records, renal labs, imaging studies, telemetry/EKG's were reviewed. Justicifation of Admission Dx: Justifications for Admission: Justification of Admission Dx: Yes Stroke - Ischemic: Stroke-Ischemic VIKA WEST MD Jan 13, 2022 12:50
[2022-01-13] MEDS: ATORVASTATIN CALCIUM 40 MG TABLET. PO SCH (20:50)
[2022-01-14] VITALS (24 sets, daily range): BP systolic 108–199; BP diastolic 53–99
[2022-01-14] MEDS: NITROGLYCERIN OINT 1 GM PACKET. TP SCH ×5 (00:03→23:45)
[2022-01-14] MEDS: INSULIN LISPRO 300 UNITS/3 ML VIAL. SQ SCH ×5 (00:10→23:45)
[2022-01-14] MEDS: PROPOFOL 100 ML IV PRN ×4 (00:57→23:29)
[2022-01-14] MEDS: HEPARIN for SUB-Q USE 5,000 UNIT/ML VIAL. SQ SCH ×3 (06:00→23:44)
--- NOTE | 2022-01-14 06:25 | PDOC ---
PULMONARY PROGRESS NOTES DATE: 01/14/22 TIME: 06:24 Subjective on vent peep 5 fio2 40% sedated on fentanyl propofol Vitals Vital Signs Date Time Temp Pulse Resp B/P (MAP) Pulse Ox O2 Delivery O2 Flow Rate FiO2 01/14/22 06:00 97 19 139/66 97 Ventilator 01/14/22 04:00 98.6 98.6 Comments ros unable to obtain sedated on vent HEENT: Other (nc at orally intubated nose clear neck no lad no thyromegaly) Lungs: Crackles Cardiovascular: S1, S2 Abdomen: Soft Extremities: Other Skin: Warm, Dry Labs Laboratory Tests Test 01/12/22 12:16 01/12/22 17:11 01/13/22 01:09 01/13/22 06:20 Glucose (Fingerstick) 192 mg/dL (70-99) 157 mg/dL (70-99) 189 mg/dL (70-99) 177 mg/dL (70-99) Test 01/13/22 08:10 01/13/22 12:37 01/13/22 17:27 01/13/22 23:40 Triglycerides Level 248 mg/dL (0-150) Glucose (Fingerstick) 161 mg/dL (70-99) 186 mg/dL (70-99) 170 mg/dL (70-99) Test 01/14/22 06:01 Glucose (Fingerstick) 161 mg/dL (70-99) Laboratory Tests Test 01/13/22 08:10 01/13/22 12:37 01/13/22 17:27 01/13/22 23:40 Triglycerides Level 248 mg/dL (0-150) Glucose (Fingerstick) 161 mg/dL (70-99) 186 mg/dL (70-99) 170 mg/dL (70-99) Test 01/14/22 06:01 Glucose (Fingerstick) 161 mg/dL (70-99) Medications Active Scripts Medications Dose Route/Sig Max Daily Dose Days Date Category Dose Instructions Montelukast Sodium 10 Mg Tablet 1 Tab PO DAILY 12/24/21 Reported Stool Softener (Docusate Sodium) 50 Mg Capsule 50 Mg PO BID 06/02/19 Reported [place] 5-325 Tablet (Acetaminophen/Hydrocodone Bitart) 1 Each Tablet 1 Tab PO Q4HRS 06/02/19 Reported LAST DOSE GIVEN: Lantus Solostar (Insulin Glargine,Hum.rec.anlog) 100 Unit/1 Ml Insuln.pen 21 Unit SQ QHS 06/02/19 Reported Culturelle (Lactobacillus Rhamnosus Gg) 1 Each Capsule 1 Each PO DAILY 06/01/19 Reported Alive Once Daily Women 50 Plus (Mv-Mn/Folic Acid/Vit K/Lorm299) 1 Each Tablet 1 Each PO DAILY 06/01/19 Reported [place] 5-325 Tablet (Acetaminophen/Hydrocodone Bitart) 1 Each Tablet 1 Tab PO PRN Q6HRS PRN 06/01/19 Reported Tizanidine Hcl 4 Mg Tablet 2 Tab PO TID PRN 06/01/19 Reported Proair Hfa Inhaler (Albuterol Sulfate) 8.5 Gm Hfa.aer.ad 1 Puff INH PRN Q6HRS PRN 01/19/19 Reported Montelukast Sodium Tablet (Montelukast Sodium) 10 Mg Tablet 1 Tab PO DAILY 01/19/19 Reported Losartan-Hctz 100-25 Mg Tab (Losartan/Hydrochlorothiazide) 1 Each Tablet 1 Tab PO DAILY 01/19/19 Reported Protonix (Pantoprazole Sodium) 20 Mg Tablet.dr 1 Tab PO DAILY 01/19/19 Reported Vitamin D3 (Cholecalciferol (Vitamin D3)) 1,000 Unit Tablet 1 Tab PO DAILY 01/19/19 Reported Cetirizine Hcl 10 Mg Tablet 1 Tab PO DAILY 01/19/19 Reported Janumet 50-1,000 Mg Tablet (Sitagliptin Phos/Metformin Hcl) 1 Each Tablet 1 Tab PO BID 01/19/19 Reported Comments cxr reviewed ett ok b lat basilar atelectasis infilt Impression . Acute hypoxemic respiratory failure multifactorial metabolic encephalopathy Acute kidney injury, per nephrology Possible sepsis Hypomagnesemia hypokalemia Uncontrolled hypertension Severe metabolic acidosis CVA--positive MRI 12/25/2021, see MRI report COPD Thyroid disorder Status post PEG Plan . 01/14 cont vent support setting reviewed elevate hob ABG cxr reviewed Status post PEG prognosis poor DNR family to make final decision on withdrawal most like tomorrow discussed w rn 01/13 cont vent support setting reviewed elevate hob ABG cxr reviewed Status post PEG prognosis poor DNR family to make final decision on withdrawal discussed w rn Updated 01/12 Nothing new to add we will continue current support Discussed with RN, family to make final decision on withdrawal Continue current support I had discussion with the family, this week, family to decide on withdrawing care BROOKS SOLANO MD Jan 14, 2022 06:25
[2022-01-14] MEDS: IPRATRPIUM/ALBUTEROL 0.5/2.5MG 3 ML NEBU. NEB SCH ×4 (07:39→21:11)
[2022-01-14] MEDS: CHOLECALCIFEROL (VITAMIN D3) 1,000 UNIT TABLET PO SCH (07:54)
[2022-01-14] MEDS: CETIRIZINE HCL 10 MG TABLET. PO SCH (07:55)
[2022-01-14] MEDS: ASPIRIN CHEWABLE 81 MG TABLET. PO SCH (07:55)
[2022-01-14] MEDS: hydrALAZINE 25 MG TABLET PO SCH ×3 (07:55→21:21)
[2022-01-14] MEDS: LANSOPRAZOLE 30 MG TAB.RAP.DR FT SCH (07:56)
[2022-01-14] MEDS: MONTELUKAST SODIUM 10 MG TABLET. PO SCH (08:56)
[2022-01-14] MEDS: NICOTINE 21MG PATCH. TD SCH (08:59)
--- NOTE | 2022-01-14 09:23 | PDOC ---
[employer] PROGRESS NOTE Date of Service DOS: DATE: 01/14/22 TIME: 09:20 Chief Complaint Chief Complaint Bilateral thalamic stroke - Expressive aphasia unilateral weakness secondary to 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 Acute respiratory failure requiring BiPAP support Concern for early sepsis Dehydration Metabolic acidosis Acute electrolyte derangement, hypernatremia and hyperchloremia-possible dehydration History hypertension History of diabetes diabetes History of Present Illness History of Present Illness 01/14: Seen in ICU on vent, sedated, FiO2 40% PEEP of 5. Still requiring topical nitroglycerin. Significant BP increases in secretions with sedation weans. Plans to discuss withdrawal of aggressive care with family tomorrow 01/15/2022. Not showing any improvement. She will open her eyes with stimulation, but not upper extremities, does not withdraw to pain. Upgoing great toe reflexes. She does not follow command or look up to command. Chance of significant neurologic recovery is extremely poor. 01/13: Seen in ICU on ventilator sedated. AC mode 40% FiO2 PEEP of 5. No significant residuals on tube feeds. Cardene gtt. on hold right now blood pressure is better managed with minimal sedation wean blood pressure significant increases. 01/12/2022 Patient seen and examined in the ICU She remains on the ventilator AC/16/400/40 percent with 5 of PEEP PEG running at 30 cc an hour Sedated with fentanyl and propofol Has Cardene drip Maintenance IV running Discussed with RN Chart reviewed Discussed with case management Family still considering withdrawing care 01/11/2022 Patient seen and examined in the ICU Discussed with RN Chart reviewed She remains on the ventilator AC/16/400/40 percent with 5 of PEEP Berumen bedside drainage Still has a rectal bag Sedated with fentanyl propofol Also has a maintenance IV PEG running at 30 cc an hour Still on Cardene drip Still critically ill 01/10/2022 Patient seen and examined in the ICU She remains on the ventilator AC/16/400/30 percent with 5 of PEEP Rectal bag now in place Berumen to bedside drainage Art line in place with pressure 169/64 Has fentanyl propofol Cardene and maintenance IV hanging OG feed running at 30 cc an hour Discussed with RN Chart reviewed 01/09/2022 Patient seen and examined in the ICU She remains on the ventilator AC/16/400/30 percent with 5 of PEEP Art line showing a pressure 150/63 Berumen bedside drainage PEG running at 30 cc an hour Still has a Cardene drip Sedated with propofol and fentanyl Chart reviewed Discussed with RN We are considering comfort care 01/08/2022 Patient seen and examined in the ICU She remains on the ventilator AC/16/400/30 percent with 5 of PEEP Discussed with GI nurse practitioner Discussed with RN Chart reviewed Patient's art line shows a pressure 168/62 Full to bedside drainage Sedated with propofol and fentanyl OG running at 30 cc an hour Still on Cardene drip 01/07/2020 Patient seen and examined in the ICU She remains on the ventilator AC/16/400/30 percent with 5 of PEEP Berumen to bedside drainage Art line in place with a pressure 149/61 PEG feeds running She is sedated with propofol fentanyl Also has a Cardene drip running She remains critically ill Discussed with RN Chart reviewed 01/06/2022 Patient seen and examined in the ICU She remains on the vent AC/16/400/30 percent with five of PEEP Has PEG feed running at 30 cc an hour Has Berumen to bedside drainage Zyvox hanging IV Sedated with propofol and fentanyl Has Cardene drip running Discussed with RN Chart reviewed She remains critically ill 01/05/2022 Patient seen and examined in the ICU again She remains on the vent AC/16/400/30 percent with 5 of PEEP Has her new PEG feeds running at 30 cc an hour Sedated with fentanyl Still requiring Cardene drip 01/04/2022 Patient seen and examined in the ICU She is on the vent AC/16/400/30 percent with 5 of PEEP (satting 100% and has a pH of 7.44) Art line in place Sedated with propofol and fentanyl PEG feed running at 30 cc an hour On Cardene drip but I discussed with RN working to titrate that off and start per PEG Norvasc Chart reviewed She remains critically ill 01/03/2022 Patient seen and examined in the ICU She remains on the vent AC/16/400/30 percent with 5 of PEEP Discussed with RN, the patient's urine output is a low Currently sedated with propofol Has IV Zosyn and IV Zyvox NG running at 30 cc an hour Has Berumen to bedside drainage ABIs are in place Art line appears clean dry intact and functioning well Chart reviewed She remains critically ill 01/02/2022 Patient seen and examined in the ICU She got her PEG yesterday but then apparently aspirated and had to be intubated Vent settings as follows AC/16/400/30 5% with 5 of PEEP Sedated with propofol fentanyl Has IV Zosyn hanging D5 water also hanging Creatinine bumped up a little bit (I called the pharmacy working to stop the Vanco and start Zyvox) Chart reviewed Discussed with RN She is critically ill 01/01/2022 Patient seen and examined in the ICU She remains on the vent AC/16/400/30 5% with 5 of PEEP Art line in place Sedated with propofol and fentanyl Has half-normal saline hanging with Zosyn Berumen to bedside drainage Chart reviewed Discussed with RN 12/31 Patient evaluated examined at bedside. She required intubation overnight and is currently intubated and sedated. Patient was intubated after family decided on continuing full treatment measures. Blood pressure improved. When seen patient unresponsive no withdrawal to pain. Pupils do still have reflex. Continue current. Nephrology pulmonology following. 45 minutes critical care time 12/30/2021 Rapid response called last night for desaturations down to the 70s. Labs were obtained showing hypernatremia. Patient still unresponsive and placed on BiPAP. ABG showed 7.1 //. Concern for aspiration, worsening of stroke, or dehydration. Nephrology and pulmonology consulted. Patient transferred to the ICU. Empiric IV antibiotics are started and blood cultures are obtained. D5 bicarb drip started. Patient's chart, labs, images were reviewed and discussed with RN 12/29/21 No acute events overnight. Patient seen examined bedside. Sleeping in bed and un able to be arousable with sternal rub or to voice. Patient unable to follow through with speech evaluation. Will need to consider TPN for nutrition. Medicaid application pending. Patient's chart, labs, images were reviewed and discussed with RN 12/28 Patient evaluated examined at bedside. She was sleeping in bed unable to get her to open her eyes even with sternal rub. Some withdrawal to pain in the right lower extremity none in right upper extremity. Unable to follow commands to see if she could hold her arm against gravity. Still having some trouble controlling blood pressure is still on Cardene drip for now. Will schedule Va sotec and try to start weaning off the Cardene drip. 12/27 Evaluated and examined at bedside. She was resting in bed not easily awoken and still cannot provide me really with any history given her aphasic state. She did have some withdrawal to pain in the right lower extremity still no movement and right upper. PT OT. Neuro following. Plan discussed bedside RN. 12/26 Evaluated and examined at bedside. Is a bit lethargic today difficulty staying awake this morning. MRI showing acute infarcts. Neurology continues to follow. Patient remains aphasic. Therapy modalities. Blood pressure control with IV until able to take oral Okay to transfer out of ICU to CVC if bed is needed Vitals/I&O Vitals/I&O: Vital Signs Date Time Temp Pulse Resp B/P (MAP) Pulse Ox O2 Delivery O2 Flow Rate FiO2 01/14/22 09:00 94 16 146/70 97 Ventilator 01/14/22 08:00 99.1 99.1 I & O 01/13/22 01/13/22 01/14/22 15:00 23:00 07:00 Intake Total 260 ml 1016 ml 866.70 ml Output Total 295 ml 820 ml 500 ml Balance -35 ml 196 ml 366.70 ml Physical Exam General: Other (Sedated on the vent) Heart: Regular rate Lungs: Crackles Abdomen: Other (New PEG tube in place) Extremities: No clubbing Skin: No breakdown Labs Labs: Laboratory Tests Test 01/13/22 12:37 01/13/22 17:27 01/13/22 23:40 01/14/22 06:01 Glucose (Fingerstick) 161 mg/dL (70-99) 186 mg/dL (70-99) 170 mg/dL (70-99) 161 mg/dL (70-99) Comment Review of Relevant I have reviewed the following items chino (where applicable) has been applied. Justifications for Admission TIA Indications Persistent neurologic signs?: Yes Justification for admission: There is persistence of patient's focal neurologic signs or symptoms or there is concern for recurrence of patient's neurological signs and symptoms. Severe hypertension?: Yes Justification for admission: There is concern for patient's severe hypertension of (>180/110mmHg--please indicate patient's BP here) that has not been controlled by ED treatment. Patient needs inpatient level of care for further evaluation and management. Other Justification JUDY SHAH MD Jan 14, 2022 09:23
[2022-01-14] MEDS ORDERED: SCOPOLAMINE 1.5MG PATCH. TD SCH (10:00)
--- NOTE | 2022-01-14 14:48 | PDOC ---
DATE OF SERVICE DATE: 01/14/22 TIME: 14:44 SUBJECTIVE ROS Remains Intubated , stable OBJECTIVE Vital Signs Vital Signs Date Time Temp Pulse Resp B/P (MAP) Pulse Ox O2 Delivery O2 Flow Rate FiO2 01/14/22 14:15 91 144/60 01/14/22 14:00 18 95 Ventilator 01/14/22 12:00 98.9 98.9 I & 0 Intake and Output 01/14/22 07:00 Intake Total 2142.70 ml Output Total 1615 ml Balance 527.70 ml IV Total 438.70 ml Tube Feeding 1404 ml Other 300 ml Output Urine Total 1615 ml Gastric Drainage Total 0 ml PHYSICAL EXAM Physical Exam General Appearance: Intubated HEEN ETT + Skin: warm, No rash Respiratory: bilateral CTA ant Heart: S1S2 Abdomen: soft, bowel sounds present Genitourinary: Berumen Extremities: No LE edema , No cyanosis Neurology: sedated DIAGNOSIS/ASSESSMENT Assessment & Plan MICHELET - Improved to her baseline , Non Oliguric, Lasix IV prn, given 1 dose yesterday with improvement in UOP. . Order am labs depending on goals of care- discussed with nursing ; supportive care, maintain fluid balance, avoid Nephrotoxins HyperNatremia - Resolved HypoKalemia - Normal K Anemia- Hgb trended down, last H &H 01/01 defer to primary ? CKD stage 3 Creat 2,1 in 2019 x 1 , No interval labs CVA- Acute infarcts at the junctions of the bilateral thalamic I and posterior limbs of the internal capsule and the right caudate nucleus. . Not showing any improvement clinically HTN- antihypertensives . requiring topical nitroglycerin. DM II- primary managing COMMENT/RELEVANT DATA Meds Current Medications Medications (Trade) Dose Ordered Sig/Fabio Start Time Stop Time Status Last Admin Dose Admin Acetaminophen (Tylenol Supp) 650 mg PRN Q6HRS PRN 12/24/21 20:15 Acetaminophen (Tylenol) 650 mg PRN Q6HRS PRN 12/24/21 20:15 12/24/21 20:17 DC Albuterol Sulfate (Ventolin Neb Soln) 2.5 mg PRN Q4HRS PRN 12/30/21 02:00 12/30/21 01:55 2.5 MG Albuterol/ Ipratropium (Duoneb) 3 ml RTQID 12/30/21 12:00 01/14/22 11:47 3 ML Amiodarone HCl (Cordarone) 300 mg STK-MED ONCE 12/30/21 20:00 01/01/22 13:17 DC Amlodipine Besylate (Norvasc) 10 mg DAILY 01/04/22 10:00 01/14/22 07:55 10 MG Aspirin (Aspirin Chewable) 162 mg [id number] 01/03/22 08:00 01/14/22 07:55 162 MG Aspirin (Aspirin Rectal Supp) 300 mg DAILY 12/30/21 11:00 01/02/22 15:08 DC 01/02/22 09:42 300 MG Atorvastatin Calcium (Lipitor) 80 mg QHS 12/24/21 21:00 01/13/22 20:50 80 MG Atropine Sulfate (ATROPINE 0.5mg SYRINGE) 0.5 mg PRN Q5MIN PRN 12/30/21 21:30 Bisacodyl (Dulcolax Supp) 10 mg PRN DAILY PRN 12/24/21 20:15 UNV Cefazolin Sodium (Ancef) 1 gm 1X ONCE 01/01/22 13:30 01/01/22 08:01 DC Cetirizine HCl (ZyrTEC) 10 mg DAILY 12/25/21 10:00 01/14/22 07:55 10 MG Chlorhexidine Gluconate (Peridex) 15 ml BID 12/31/21 09:00 01/06/22 17:10 DC 01/05/22 20:43 15 ML Clonidine HCl (Catapres Tts-2) 1 patch WEEKLY 12/26/21 15:00 01/09/22 09:00 1 PATCH Dexmedetomidine HCl 400 mcg/ Sodium Chloride 100 ml @ 3.195 mls/ hr CONT PRN 12/30/21 21:30 Dextrose 1,000 ml @ 75 mls/hr [id number] 01/01/22 10:45 01/02/22 16:48 DC 01/02/22 05:15 75 MLS/HR Dextrose (Dextrose 50%-Water Syringe) 12.5 gm PRN Q15MIN PRN 12/24/21 20:15 Dextrose (Iv Dextrose 5%) 250 ml PRN Q15MIN PRN 12/24/21 20:15 Diltiazem HCl 125 mg/Sodium Chloride 125 ml @ 5 mls/hr CONT PRN 12/30/21 18:15 12/30/21 19:20 DC Enalaprilat (Vasotec Inj) 1.25 mg Q6HRS 12/28/21 12:00 12/31/21 14:47 DC 12/30/21 12:54 1.25 MG Epinephrine HCl (EPINEPHrine SYRINGE) 3 mg STK-MED ONCE 12/30/21 20:00 01/01/22 13:17 DC Etomidate (Amidate) 20 mg STK-MED ONCE 12/30/21 20:00 01/01/22 09:12 DC Famotidine (Pepcid Vial) 20 mg DAILY 12/27/21 09:00 01/05/22 10:49 DC 01/05/22 08:09 20 MG Fentanyl Citrate 30 ml @ 0 mls/hr CONT PRN 12/30/21 21:30 01/14/22 04:12 2.5 MLS/HR Furosemide (Lasix) 80 mg 1X ONCE 01/11/22 13:15 01/11/22 13:16 DC 01/11/22 13:40 80 MG Glycerin/ Hypromellose/ Polyethylene (Artificial Tears) 1 drop PRN Q1HR PRN 12/30/21 21:30 01/06/22 18:08 1 DROP Heparin Sodium (Porcine) (Heparin Sodium) 5,000 unit Q8HRS 01/03/22 14:00 01/14/22 14:14 5,000 UNIT Hydralazine HCl (Apresoline Inj) 10 mg PRN Q4HRS PRN 12/24/21 20:15 01/08/22 11:39 10 MG Hydralazine HCl (Apresoline) 25 mg TID 01/11/22 13:00 01/14/22 14:15 25 MG Hydrochlorothiazide (Hydrodiuril) 25 mg DAILY 12/25/21 10:00 12/31/21 14:47 DC Insulin Human Lispro (HumaLOG) 0-9 UNITS Q6HRS 12/25/21 00:00 01/14/22 11:33 4 UNITS Labetalol HCl (Normodyne Iv Push) 20 mg PRN Q2HR PRN 12/26/21 13:30 01/11/22 12:38 20 MG Lactobacillus Rhamnosus (Culturelle) 1 cap BID 12/30/21 21:00 01/02/22 07:33 DC Lansoprazole (Prevacid) 30 mg DAILY 01/06/22 07:30 01/14/22 07:56 30 MG Linezolid/Dextrose 300 ml @ 300 mls/hr Q12HR 01/02/22 21:00 01/06/22 14:33 DC 01/06/22 09:30 300 MLS/HR Lorazepam (Ativan Inj) 2 mg PRN Q4HRS PRN 12/25/21 10:00 12/29/21 20:16 2 MG Losartan Potassium (Cozaar) 100 mg DAILY 12/25/21 10:00 12/31/21 14:46 DC Magnesium Sulfate 50 ml @ 25 mls/hr 1X ONCE 12/31/21 08:30 12/31/21 10:29 DC 12/31/21 09:06 25 MLS/HR Magnesium Sulfate/ Dextrose (Magnesium Sulfate PREMIX 1GM) 1 gm STK-MED ONCE 12/30/21 20:00 01/01/22 13:17 DC Midazolam HCl (Versed) 5 mg PRN 1X PRN 12/30/21 21:30 12/31/21 21:29 DC Montelukast Sodium (Singulair) 10 mg DAILY 12/25/21 10:00 01/14/22 08:56 10 MG Nicardipine HCl 50 mg/Sodium Chloride 250 ml @ 12.5 mls/hr CONT PRN 12/30/21 19:30 01/12/22 01:39 12.5 MLS/HR Nicotine (Nicoderm Cq 21mg) 1 patch DAILY 12/26/21 15:00 01/09/22 12:29 1 PATCH Nitroglycerin (Nitro-Bid Oint) 1 inch Q6HRS 12/26/21 18:00 01/14/22 11:33 1 INCH Olanzapine (ZyPREXA ZYDIS) 5 mg PRN BID PRN 12/24/21 20:15 12/24/21 22:49 5 MG Ondansetron HCl (Zofran) 4 mg PRN Q4HRS PRN 12/24/21 20:15 Pantoprazole Sodium (Protonix) 40 mg DAILYAC 12/25/21 11:30 12/29/21 12:07 DC Piperacillin Sod/ Tazobactam Sod (Zosyn Per Pharmacy) 1 each PRN DAILY PRN 12/30/21 04:30 01/06/22 14:34 DC Piperacillin Sod/ Tazobactam Sod 3.375 gm/Sodium Chloride 50 ml @ 100 mls/hr Q6HRS 12/30/21 06:00 01/06/22 14:33 DC 01/06/22 12:13 100 MLS/HR Potassium Bicarbonate (Potassium Effervescent Tablet) 40 meq 1X ONCE 01/02/22 17:45 01/02/22 17:47 DC 01/02/22 17:54 20 MEQ Potassium Chloride/Water 100 ml @ 100 mls/hr Q1H 01/05/22 08:00 01/05/22 09:59 DC 01/05/22 08:35 100 MLS/HR Propofol 100 ml @ 1.917 mls/ hr CONT PRN 12/30/21 21:30 01/14/22 06:59 11.502 MLS/HR Scopolamine (Transderm-Scop) 1 patch Q3DAYS 01/14/22 10:00 01/14/22 10:09 1 PATCH Sodium Bicarbonate 150 meq/Dextrose 1,150 ml @ 75 mls/hr Q04H45Q 12/30/21 11:00 12/31/21 08:24 DC 12/31/21 03:04 75 MLS/HR Sodium Bicarbonate (Sodium Bicarb Adult 8.4% Syr) 50 meq STK-MED ONCE 12/30/21 20:00 01/01/22 13:17 DC Sodium Chloride 1,000 ml @ 75 mls/hr [id number] 12/31/21 08:30 01/01/22 10:39 DC 01/01/22 04:01 75 MLS/HR Succinylcholine Chloride (Anectine) 200 mg STK-MED ONCE 12/30/21 20:00 01/01/22 09:12 DC Vancomycin HCl (Vanco Per Pharmacy) 1 each PRN DAILY PRN 12/30/21 10:30 01/02/22 09:58 DC 01/01/22 12:42 1 EACH Vancomycin HCl (Vancomycin Trough Level) 1 each 1X ONCE 01/03/22 10:30 01/03/22 10:31 Cancel Vancomycin HCl 1.5 gm/Sodium Chloride 500 ml @ 250 mls/hr 1X ONCE 12/30/21 11:00 12/30/21 12:59 DC 12/30/21 10:51 250 MLS/HR Vancomycin HCl 1 gm/Sodium Chloride 250 ml @ 250 mls/hr Q36H 01/01/22 23:00 01/02/22 09:58 DC 01/01/22 22:52 250 MLS/HR Vecuronium Benn[place] (Norcuron Bolus) 6 mg PRN 1X PRN 12/30/21 21:30 12/31/21 21:29 DC Vitamin D (Vitamin D3) 1,000 unit DAILY 12/25/21 10:00 01/14/22 07:54 1,000 UNIT Lab Laboratory Tests Test 01/13/22 17:27 01/13/22 23:40 01/14/22 06:01 01/14/22 11:20 Glucose (Fingerstick) 186 mg/dL (70-99) 170 mg/dL (70-99) 161 mg/dL (70-99) 170 mg/dL (70-99) Results All relevant outside records, renal labs, imaging studies, telemetry/EKG's were reviewed. Justicifation of Admission Dx: Justifications for Admission: Justification of Admission Dx: Yes Stroke - Ischemic: Stroke-Ischemic VIKA WEST MD Jan 14, 2022 14:48
[2022-01-14] MEDS: ATORVASTATIN CALCIUM 40 MG TABLET. PO SCH (21:21)
[2022-01-15] VITALS (17 sets, daily range): BP systolic 98–190; BP diastolic 47–84
[2022-01-15] MEDS: NITROGLYCERIN OINT 1 GM PACKET. TP SCH ×3 (05:58→17:14)
[2022-01-15] MEDS: HEPARIN for SUB-Q USE 5,000 UNIT/ML VIAL. SQ SCH ×2 (06:01→13:54)
[2022-01-15] MEDS: INSULIN LISPRO 300 UNITS/3 ML VIAL. SQ SCH ×3 (06:05→17:14)
[2022-01-15] MEDS: CETIRIZINE HCL 10 MG TABLET. PO SCH (07:46)
[2022-01-15] MEDS: LANSOPRAZOLE 30 MG TAB.RAP.DR FT SCH (07:47)
[2022-01-15] MEDS: MONTELUKAST SODIUM 10 MG TABLET. PO SCH (07:47)
[2022-01-15] MEDS: CHOLECALCIFEROL (VITAMIN D3) 1,000 UNIT TABLET PO SCH (07:47)
[2022-01-15] MEDS: hydrALAZINE 25 MG TABLET PO SCH ×2 (07:48→13:55)
[2022-01-15] MEDS: ASPIRIN CHEWABLE 81 MG TABLET. PO SCH (07:48)
[2022-01-15] MEDS: NICOTINE 21MG PATCH. TD SCH (07:48)
--- NOTE | 2022-01-15 08:45 | PDOC ---
PULMONARY PROGRESS NOTES DATE: 01/15/22 TIME: 08:45 Subjective on vent peep 5 fio2 40% sedated on fentanyl propofol Vitals Vital Signs Date Time Temp Pulse Resp B/P (MAP) Pulse Ox O2 Delivery O2 Flow Rate FiO2 01/15/22 08:00 98.4 92 16 159/69 100 Ventilator 98.4 Comments ros unable to obtain sedated on vent HEENT: Other (nc at orally intubated nose clear neck no lad no thyromegaly) Lungs: Crackles Cardiovascular: S1, S2 Abdomen: Soft Extremities: Other Skin: Warm, Dry Labs Laboratory Tests Test 01/13/22 12:37 01/13/22 17:27 01/13/22 23:40 01/14/22 06:01 Glucose (Fingerstick) 161 mg/dL (70-99) 186 mg/dL (70-99) 170 mg/dL (70-99) 161 mg/dL (70-99) Test 01/14/22 11:20 01/14/22 17:50 01/14/22 23:43 01/15/22 05:56 Glucose (Fingerstick) 170 mg/dL (70-99) 162 mg/dL (70-99) 205 mg/dL (70-99) 172 mg/dL (70-99) Laboratory Tests Test 01/14/22 11:20 01/14/22 17:50 01/14/22 23:43 01/15/22 05:56 Glucose (Fingerstick) 170 mg/dL (70-99) 162 mg/dL (70-99) 205 mg/dL (70-99) 172 mg/dL (70-99) Medications Active Scripts Medications Dose Route/Sig Max Daily Dose Days Date Category Dose Instructions Montelukast Sodium 10 Mg Tablet 1 Tab PO DAILY 12/24/21 Reported Stool Softener (Docusate Sodium) 50 Mg Capsule 50 Mg PO BID 06/02/19 Reported [place] 5-325 Tablet (Acetaminophen/Hydrocodone Bitart) 1 Each Tablet 1 Tab PO Q4HRS 06/02/19 Reported LAST DOSE GIVEN: Lantus Solostar (Insulin Glargine,Hum.rec.anlog) 100 Unit/1 Ml Insuln.pen 21 Unit SQ QHS 06/02/19 Reported Culturelle (Lactobacillus Rhamnosus Gg) 1 Each Capsule 1 Each PO DAILY 06/01/19 Reported Alive Once Daily Women 50 Plus (Mv-Mn/Folic Acid/Vit K/Uhct318) 1 Each Tablet 1 Each PO DAILY 06/01/19 Reported [place] 5-325 Tablet (Acetaminophen/Hydrocodone Bitart) 1 Each Tablet 1 Tab PO PRN Q6HRS PRN 06/01/19 Reported Tizanidine Hcl 4 Mg Tablet 2 Tab PO TID PRN 06/01/19 Reported Proair Hfa Inhaler (Albuterol Sulfate) 8.5 Gm Hfa.aer.ad 1 Puff INH PRN Q6HRS PRN 01/19/19 Reported Montelukast Sodium Tablet (Montelukast Sodium) 10 Mg Tablet 1 Tab PO DAILY 01/19/19 Reported Losartan-Hctz 100-25 Mg Tab (Losartan/Hydrochlorothiazide) 1 Each Tablet 1 Tab PO DAILY 01/19/19 Reported Protonix (Pantoprazole Sodium) 20 Mg Tablet.dr 1 Tab PO DAILY 01/19/19 Reported Vitamin D3 (Cholecalciferol (Vitamin D3)) 1,000 Unit Tablet 1 Tab PO DAILY 01/19/19 Reported Cetirizine Hcl 10 Mg Tablet 1 Tab PO DAILY 01/19/19 Reported Janumet 50-1,000 Mg Tablet (Sitagliptin Phos/Metformin Hcl) 1 Each Tablet 1 Tab PO BID 01/19/19 Reported Impression . Acute hypoxemic respiratory failure multifactorial metabolic encephalopathy Acute kidney injury, per nephrology Possible sepsis Hypomagnesemia hypokalemia Uncontrolled hypertension Severe metabolic acidosis CVA--positive MRI 12/25/2021, see MRI report COPD Thyroid disorder Status post PEG Plan . Updated 228 Discussed with RN and RT Patient family more than likely to come in today to withdraw care Continue current support 01/14 cont vent support setting reviewed elevate hob ABG cxr reviewed Status post PEG prognosis poor DNR family to make final decision on withdrawal most like tomorrow discussed w rn I had discussion with the family, this week, family to decide on withdrawing care VAIBHAV PARIKH MD Jan 15, 2022 08:45
[2022-01-15] MEDS: IPRATRPIUM/ALBUTEROL 0.5/2.5MG 3 ML NEBU. NEB SCH ×2 (09:00→11:30)
--- NOTE | 2022-01-15 09:33 | PDOC ---
[employer] PROGRESS NOTE Date of Service DOS: DATE: 01/15/22 TIME: 09:28 Chief Complaint Chief Complaint Bilateral thalamic stroke - Expressive aphasia unilateral weakness secondary to 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 Acute respiratory failure requiring BiPAP support Concern for early sepsis Dehydration Metabolic acidosis Acute electrolyte derangement, hypernatremia and hyperchloremia-possible dehydration History hypertension History of diabetes diabetes History of Present Illness History of Present Illness 01/15: Seen in ICU on vent sedated FiO2 40% PEEP 5. Still has shown improvement opens her eyes to deep painful stimulation not moving upper extremities not withdrawing to pain bilateral great toe reflexes looking to voice. 01/14: Seen in ICU on vent, sedated, FiO2 40% PEEP of 5. Still requiring topical nitroglycerin. Significant BP increases in secretions with sedation weans. Plans to discuss withdrawal of aggressive care with family tomorrow 01/15/2022. Not showing any improvement. She will open her eyes with stimulation, but not upper extremities, does not withdraw to pain. Upgoing great toe reflexes. She does not follow command or look up to command. Chance of significant neurologic recovery is extremely poor. 01/13: Seen in ICU on ventilator sedated. AC mode 40% FiO2 PEEP of 5. No signif icant residuals on tube feeds. Cardene gtt. on hold right now blood pressure is better managed with minimal sedation wean blood pressure significant increases. 01/12: Patient seen and examined in the ICU. She remains on the ventilator. AC/16/400/40 percent with 5 of PEEP. PEG running at 30 cc an hour. Sedated with fentanyl and propofol. Has Cardene drip 01/11: Patient seen and examined in the ICU. She remains on the ventilator. AC/16/400/40 percent with 5 of PEEP. Berumen bedside drainage. Still has a rectal bag. Sedated with fentanyl propofol. Also has a maintenance IV. PEG running at 30 cc an hour. Still on Cardene drip. Still critically ill 01/10: Patient seen and examined in the ICU. She remains on the ventilator. AC/16/400/30 percent with 5 of PEEP. Rectal bag now in place. Berumen to bedside drainage. Art line in place with pressure 169/64. Has fentanyl propofol Cardene and maintenance IV hanging. OG feed running 01/09/2022 Patient seen and examined in the ICU She remains on the ventilator AC/16/400/30 percent with 5 of PEEP Art line showing a pressure 150/63 Berumen bedside drainage PEG running at 30 cc an hour Still has a Cardene drip Sedated with propofol and fentanyl Chart reviewed Discussed with RN We are considering comfort care 01/08/2022 Patient seen and examined in the ICU She remains on the ventilator AC/16/400/30 percent with 5 of PEEP Discussed with GI nurse practitioner Discussed with RN Chart reviewed Patient's art line shows a pressure 168/62 Full to bedside drainage Sedated with propofol and fentanyl OG running at 30 cc an hour Still on Cardene drip 01/07/2020 Patient seen and examined in the ICU She remains on the ventilator AC/16/400/30 percent with 5 of PEEP Berumen to bedside drainage Art line in place with a pressure 149/61 PEG feeds running She is sedated with propofol fentanyl Also has a Cardene drip running She remains critically ill Discussed with RN Chart reviewed 01/06/2022 Patient seen and examined in the ICU She remains on the vent AC/16/400/30 percent with five of PEEP Has PEG feed running at 30 cc an hour Has Berumen to bedside drainage Zyvox hanging IV Sedated with propofol and fentanyl Has Cardene drip running Discussed with RN Chart reviewed She remains critically ill 01/05/2022 Patient seen and examined in the ICU again She remains on the vent AC/16/400/30 percent with 5 of PEEP Has her new PEG feeds running at 30 cc an hour Sedated with fentanyl Still requiring Cardene drip 01/04/2022 Patient seen and examined in the ICU She is on the vent AC/16/400/30 percent with 5 of PEEP (satting 100% and has a pH of 7.44) Art line in place Sedated with propofol and fentanyl PEG feed running at 30 cc an hour On Cardene drip but I discussed with RN working to titrate that off and start per PEG Norvasc Chart reviewed She remains critically ill 01/03/2022 Patient seen and examined in the ICU She remains on the vent AC/16/400/30 percent with 5 of PEEP Discussed with RN, the patient's urine output is a low Currently sedated with propofol Has IV Zosyn and IV Zyvox NG running at 30 cc an hour Has Berumen to bedside drainage ABIs are in place Art line appears clean dry intact and functioning well Chart reviewed She remains critically ill 01/02/2022 Patient seen and examined in the ICU She got her PEG yesterday but then apparently aspirated and had to be intubated Vent settings as follows AC/16/400/30 5% with 5 of PEEP Sedated with propofol fentanyl Has IV Zosyn hanging D5 water also hanging Creatinine bumped up a little bit (I called the pharmacy working to stop the Vanco and start Zyvox) Chart reviewed Discussed with RN She is critically ill 01/01/2022 Patient seen and examined in the ICU She remains on the vent AC/16/400/30 5% with 5 of PEEP Art line in place Sedated with propofol and fentanyl Has half-normal saline hanging with Zosyn Berumen to bedside drainage Chart reviewed Discussed with RN 12/31 Patient evaluated examined at bedside. She required intubation overnight and is currently intubated and sedated. Patient was intubated after family decided on continuing full treatment measures. Blood pressure improved. When seen patient unresponsive no withdrawal to pain. Pupils do still have reflex. Continue current. Nephrology pulmonology following. 45 minutes critical care time 12/30/2021 Rapid response called last night for desaturations down to the 70s. Labs were obtained showing hypernatremia. Patient still unresponsive and placed on BiPAP. ABG showed 7.1 //14. Concern for aspiration, worsening of stroke, or dehydration. Nephrology and pulmonology consulted. Patient transferred to the ICU. Empiric IV antibiotics are started and blood cultures are obtained. D5 bicarb drip started. Patient's chart, labs, images were reviewed and discussed with RN 12/29/21 No acute events overnight. Patient seen examined bedside. Sleeping in bed and unable to be arousable with sternal rub or to voice. Patient unable to follow through with speech evaluation. Will need to consider TPN for nutrition. Medicaid application pending. Patient's chart, labs, images were reviewed and discussed with RN 12/28 Patient evaluated examined at bedside. She was sleeping in bed unable to get her to open her eyes even with sternal rub. Some withdrawal to pain in the right lower extremity none in right upper extremity. Unable to follow commands to see if she could hold her arm against gravity. Still having some trouble controlling blood pressure is still on Cardene drip for now. Will schedule Vasotec and try to start weaning off the Cardene drip. 12/27 Evaluated and examined at bedside. She was resting in bed not easily awoken and still cannot provide me really with any history given her aphasic state. She did have some withdrawal to pain in the right lower extremity still no movement and right upper. PT OT. Neuro following. Plan discussed bedside RN. 12/26 Evaluated and examined at bedside. Is a bit lethargic today difficulty staying awake this morning. MRI showing acute infarcts. Neurology continues to follow. Patient remains aphasic. Therapy modalities. Blood pressure control with IV until able to take oral Okay to transfer out of ICU to CVC if bed is needed Vitals/I&O Vitals/I&O: Vital Signs Date Time Temp Pulse Resp B/P (MAP) Pulse Ox O2 Delivery O2 Flow Rate FiO2 01/15/22 09:01 97 Ventilator 01/15/22 09:00 106 18 156/70 01/15/22 08:00 98.4 98.4 I & O 01/14/22 01/14/22 01/15/22 15:00 23:00 07:00 Intake Total 260 ml 1165 ml 902.81 ml Output Total 550 ml 615 ml 375 ml Balance -290 ml 550 ml 527.81 ml Physical Exam General: Other (Sedated on the vent) Heart: Regular rate Lungs: Crackles Abdomen: Other (New PEG tube in place) Extremities: No clubbing Skin: No breakdown Labs Labs: Laboratory Tests Test 01/14/22 11:20 01/14/22 17:50 01/14/22 23:43 01/15/22 05:56 Glucose (Fingerstick) 170 mg/dL (70-99) 162 mg/dL (70-99) 205 mg/dL (70-99) 172 mg/dL (70-99) Comment Review of Relevant I have reviewed the following items chino (where applicable) has been applied. Medications: Current Medications Medications (Trade) Dose Ordered Sig/Fabio Route PRN Reason Start Time Stop Time Status Last Admin Dose Admin Scopolamine (Transderm-Scop) 1 patch [id number] TD 01/14/22 10:00 01/14/22 10:09 Justifications for Admission TIA Indications Persistent neurologic signs?: Yes Justification for admission: There is persistence of patient's focal neurologic signs or symptoms or there is concern for recurrence of patient's neurological signs and symptoms. Severe hypertension?: Yes Justification for admission: There is concern for patient's severe hypertension of (>180/110mmHg--please indicate patient's BP here) that has not been controlled by ED treatment. Patient needs inpatient level of care for further evaluation and management. Other Justification JUDY SHAH MD Jan 15, 2022 09:33
--- NOTE | 2022-01-15 09:48 | PDOC ---
PROGRESS NOTES Date of Service DATE: 01/15/22 TIME: 09:45 Assessment On 12/30 she required intubation and has remained unresponsive since. There is suspicion for aspiration pneumonia. Small vessel disease, negative CTA and echocardiogram: acute infarcts at the junctions of the left greater than right thalami and posterior limbs of the internal capsules and the right caudate nucleus, chronic infarcts involving bilateral basal ganglia, bilateral thalami, drea and centrum semiovale, bilateral cerebral white matter changes Doubt embolic phenomenon in these brain locations Hypertension, hyperlipidemia, says they did not have insurance and she could not afford to see the doctor, she was taking her blood pressure medicine but he does not think she was taking any cholesterol medicine Plan I understand is considering withdrawing care today. Subjective None Objective Vital Signs Date Time Temp Pulse Resp B/P (MAP) Pulse Ox O2 Delivery O2 Flow Rate FiO2 01/15/22 09:01 97 Ventilator 01/15/22 09:00 106 18 156/70 01/15/22 08:00 98.4 98.4 Intake and Output 01/15/22 07:00 Intake Total 2327.81 ml Output Total 1540 ml Balance 787.81 ml IV Total 573.81 ml Tube Feeding 1454 ml Other 300 ml Output Urine Total 1540 ml Gastric Drainage Total 0 ml PHYSICAL EXAM Intubated, sedated PERRL. Disconjugate gaze CN: Right central facial weakness. Muscle tone: normal. Muscle strength: Not cooperative DTR: 2+ Plantar reflex: Flexor Gait: not examined in bed. Sensory exam: Not cooperative. No cerebellar signs elicited. Review of Relevant I have reviewed the following items chino (where applicable) has been applied. Labs Laboratory Tests Test 01/13/22 12:37 01/13/22 17:27 01/13/22 23:40 01/14/22 06:01 Glucose (Fingerstick) 161 mg/dL (70-99) 186 mg/dL (70-99) 170 mg/dL (70-99) 161 mg/dL (70-99) Test 01/14/22 11:20 01/14/22 17:50 01/14/22 23:43 01/15/22 05:56 Glucose (Fingerstick) 170 mg/dL (70-99) 162 mg/dL (70-99) 205 mg/dL (70-99) 172 mg/dL (70-99) Laboratory Tests Test 01/14/22 11:20 01/14/22 17:50 01/14/22 23:43 01/15/22 05:56 Glucose (Fingerstick) 170 mg/dL (70-99) 162 mg/dL (70-99) 205 mg/dL (70-99) 172 mg/dL (70-99) Microbiology 12/30/21 Blood Culture - Final, Complete NO GROWTH AFTER 5 DAYS Medications Current Medications Hydralazine HCl (Apresoline Inj) 10 mg PRN Q4HRS PRN IVP ELEVATED BP (2nd) Last administered on 01/08/22at 11:39; Start 12/24/21 at 20:15 Acetaminophen (Tylenol) 650 mg PRN Q6HRS PRN PO MILD PAIN / TEMP > 100.3'F; Start 12/24/21 at 20:15 Ondansetron HCl (Zofran) 4 mg PRN Q4HRS PRN IVP NAUSEA/VOMITING; Start 12/24/21 at 20:15 Olanzapine (ZyPREXA ZYDIS) 5 mg PRN BID PRN PO ANXIETY / AGITATION Last administered on 12/24/21at 22:49; Start 12/24/21 at 20:15 Bisacodyl (Dulcolax Supp) 10 mg PRN DAILY PRN RI CONSTIPATION; Start 12/24/21 at 20:15 Nicardipine HCl 50 mg/Sodium Chloride 250 ml @ 25 mls/hr CONT PRN PRN IV PER PROTOCOL Last administered on 12/27/21at 15:42; Start 12/24/21 at 20:15; Stop 12/30/21 at 19:39; Status DC Atorvastatin Calcium (Lipitor) 80 mg QHS PO Last administered on 01/14/22at 21:21; Start 12/24/21 at 21:00 Acetaminophen (Tylenol) 650 mg PRN Q6HRS PRN PO MILD PAIN / TEMP > 100.3'F; Start 12/24/21 at 20:15; Stop 12/24/21 at 20:17; Status DC Bisacodyl (Dulcolax Supp) 10 mg PRN DAILY PRN RI CONSTIPATION; Start 12/24/21 at 20:15; Status UNV Famotidine (Pepcid Vial) 20 mg BID IVP Last administered on 12/26/21at 08:38; Start 12/24/21 at 21:00; Stop 12/26/21 at 08:51; Status DC Aspirin (Aspirin Rectal Supp) 300 mg PRN DAILY PRN RI IF UNABLE TO TAKE PO Last administered on 12/29/21at 10:28; Start 12/24/21 at 20:15; Stop 01/04/22 at 09:57; Status DC Acetaminophen (Tylenol Supp) 650 mg PRN Q6HRS PRN RI MILD PAIN / TEMP > 100.3'F; Start 12/24/21 at 20:15 Insulin Human Lispro (HumaLOG) 0-9 UNITS Q6HRS SQ Last administered on 01/15/22at 06:05; Start 12/25/21 at 00:00 Dextrose (Dextrose 50%-Water Syringe) 12.5 gm PRN Q15MIN PRN IV SEE COMMENTS; Start 12/24/21 at 20:15 Dextrose (Iv Dextrose 5%) 250 ml PRN Q15MIN PRN IV SEE COMMENTS; Start 12/24/21 at 20:15 Potassium Chloride/Water 100 ml @ 100 mls/hr Q1H IV ; Start 12/25/21 at 09:00; Stop 12/25/21 at 10:59; Status UNV Potassium Chloride/Water 100 ml @ 100 mls/hr Q1H IV Last administered on 12/25/21at 13:16; Start 12/25/21 at 09:00; Stop 12/25/21 at 12:59; Status DC Cetirizine HCl (ZyrTEC) 10 mg DAILY PO Last administered on 01/15/22at 07:46; Start 12/25/21 at 10:00 Vitamin D (Vitamin D3) 1,000 unit DAILY PO Last administered on 01/15/22at 07:47; Start 12/25/21 at 10:00 Montelukast Sodium (Singulair) 10 mg DAILY PO Last administered on 01/15/22at 07:47; Start 12/25/21 at 10:00 Losartan Potassium (Cozaar) 100 mg DAILY PO ; Start 12/25/21 at 10:00; Stop 12/31/21 at 14:46; Status DC Pantoprazole Sodium (Protonix) 40 mg DAILYAC PO ; Start 12/25/21 at 11:30; Stop 12/29/21 at 12:07; Status DC Lorazepam (Ativan Inj) 2 mg PRN Q4HRS PRN IVP ANXIETY / AGITATION Last administered on 12/29/21at 20:16; Start 12/25/21 at 10:00 Hydrochlorothiazide (Hydrodiuril) 25 mg DAILY PO ; Start 12/25/21 at 10:00; Stop 12/31/21 at 14:47; Status DC Sodium Chloride 1,000 ml @ 50 mls/hr Q20H IV Last administered on 12/29/21at 08:14; Start 12/25/21 at 17:00; Stop 12/30/21 at 10:35; Status DC Famotidine (Pepcid Vial) 20 mg DAILY IVP Last administered on 01/05/22at 08:09; Start 12/27/21 at 09:00; Stop 01/05/22 at 10:49; Status DC Labetalol HCl (Normodyne Iv Push) 10 mg PRN Q2HR PRN IVP HYPERTENSION (1ST) Last administered on 01/09/22at 11:09; Start 12/26/21 at 13:15 Heparin Sodium (Porcine) (Heparin Sodium) 5,000 unit Q8HRS SQ Last administered on 01/03/22at 06:22; Start 12/26/21 at 14:00; Stop 01/03/22 at 13:39; Status DC Labetalol HCl (Normodyne Iv Push) 20 mg PRN Q2HR PRN IVP HYPERTENSION (1st) Last administered on 01/11/22at 12:38; Start 12/26/21 at 13:30 Clonidine HCl (Catapres Tts-2) 1 patch WEEKLY TD Last administered on 01/09/22at 09:00; Start 12/26/21 at 15:00 Nicotine (Nicoderm Cq 21mg) 1 patch DAILY TD Last administered on 01/09/22 12:29; Start 12/26/21 at 15:00 Nitroglycerin (Nitro-Bid Oint) 1 inch Q6HRS TP Last administered on 01/15/22at 05:58; Start 12/26/21 at 18:00 Enalaprilat (Vasotec Inj) 1.25 mg Q6HRS IVP Last administered on 12/30/21at 12:54; Start 12/28/21 at 12:00; Stop 12/31/21 at 14:47; Status DC Cefazolin Sodium (Ancef) 1 gm 1X ONCE IVP ; Start 01/01/22 at 13:30; Stop 01/01/22 at 08:01; Status DC Albuterol Sulfate (Ventolin Neb Soln) 2.5 mg RTQID NEB Last administered on 12/30/21at 07:30; Start 12/30/21 at 08:00; Stop 12/30/21 at 11:22; Status DC Albuterol Sulfate (Ventolin Neb Soln) 2.5 mg PRN Q4HRS PRN NEB SHORTNESS OF BREATH Last administered on 12/30/21at 01:55; Start 12/30/21 at 02:00 Piperacillin Sod/ Tazobactam Sod (Zosyn Per Pharmacy) 1 each PRN DAILY PRN MC SEE COMMENTS; Start 12/30/21 at 04:30; Stop 01/06/22 at 14:34; Status DC Potassium Chloride/Water 100 ml @ 100 mls/hr Q1H IV Last administered on 12/30/21at 09:25; Start 12/30/21 at 05:00; Stop 12/30/21 at 08:59; Status DC Piperacillin Sod/ Tazobactam Sod 3.375 gm/Sodium Chloride 50 ml @ 100 mls/hr Q6HRS IV Last administered on 01/06/22at 12:13; Start 12/30/21 at 06:00; Stop 01/06/22 at 14:33; Status DC Sodium Chloride 1,000 ml @ 75 mls/hr [id number] IV ; Start 12/30/21 at 08:30; Stop 12/30/21 at 11:22; Status DC Sodium Bicarbonate (Sodium Bicarb Adult 8.4% Syr) 50 meq 1X ONCE IV Last administered on 12/30/21at 08:30; Start 12/30/21 at 08:30; Stop 12/30/21 at 08:40; Status DC Albuterol/ Ipratropium (Duoneb) 3 ml RTQID NEB Last administered on 01/15/22at 09:00; Start 12/30/21 at 12:00 Vancomycin HCl (Vanco Per Pharmacy) 1 each PRN DAILY PRN MC SEE COMMENTS Last administered on 01/01/22at 12:42; Start 12/30/21 at 10:30; Stop 01/02/22 at 09:58; Status DC Sodium Bicarbonate (Sodium Bicarb Adult 8.4% Syr) 50 meq 1X ONCE IV Last administered on 12/30/21at 11:10; Start 12/30/21 at 10:30; Stop 12/30/21 at 10:34; Status DC Vancomycin HCl 1.5 gm/Sodium Chloride 500 ml @ 250 mls/hr 1X ONCE IV Last administered on 12/30/21at 10:51; Start 12/30/21 at 11:00; Stop 12/30/21 at 12:59; Status DC Sodium Bicarbonate 150 meq/Dextrose 1,150 ml @ 75 mls/hr [id number] IV Last administered on 12/31/21at 03:04; Start 12/30/21 at 11:00; Stop 12/31/21 at 08:24; Status DC Aspirin (Aspirin Rectal Supp) 300 mg DAILY RI Last administered on 01/02/22at 09:42; Start 12/30/21 at 11:00; Stop 01/02/22 at 15:08; Status DC Vancomycin HCl 1 gm/Sodium Chloride 250 ml @ 250 mls/hr Q24H IV Last administered on 12/31/21at 11:19; Start 12/31/21 at 11:00; Stop 01/01/22 at 11:42; Status DC Vancomycin HCl (Vancomycin Trough Level) 1 each 1X ONCE MC Last administered on 01/01/22at 10:30; Start 01/01/22 at 10:30; Stop 01/01/22 at 10:31; Status DC Lactobacillus Rhamnosus (Culturelle) 1 cap BID PO ; Start 12/30/21 at 21:00; Stop 01/02/22 at 07:33; Status DC Furosemide (Lasix) 40 mg 1X ONCE IVP Last administered on 12/30/21at 18:04; Start 12/30/21 at 17:45; Stop 12/30/21 at 17:46; Status DC Diltiazem HCl 125 mg/Sodium Chloride 125 ml @ 5 mls/hr CONT PRN IV PER PROTOCOL; Start 12/30/21 at 18:15; Stop 12/30/21 at 19:20; Status DC Furosemide (Lasix) 40 mg 1X ONCE IVP Last administered on 12/30/21at 22:24; Start 12/30/21 at 19:30; Stop 12/30/21 at 19:38; Status DC Nicardipine HCl 50 mg/Sodium Chloride 250 ml @ 12.5 mls/hr CONT PRN IV PER PROTOCOL Last administered on 01/12/22at 01:39; Start 12/30/21 at 19:30 Succinylcholine Chloride (Anectine) 200 mg STK-MED ONCE .ROUTE ; Start 12/30/21 at 19:49; Stop 12/30/21 at 19:49; Status DC Etomidate (Amidate) 20 mg STK-MED ONCE IV ; Start 12/30/21 at 19:49; Stop 12/30/21 at 19:49; Status DC Fentanyl Citrate 30 ml @ 0 mls/hr CONT PRN IV SEE PROTOCOL Last administered on 01/15/22at 02:51; Start 12/30/21 at 21:30 Midazolam HCl 100 ml @ 1 mls/hr CONT PRN IV SEE PROTOCOL; Start 12/30/21 at 21:30 Propofol 100 ml @ 1.917 mls/ hr CONT PRN IV PER PROTOCOL Last administered on 01/14/22at 23:29; Start 12/30/21 at 21:30 Vecuronium [place] (Norcuron Bolus) 6 mg PRN 1X PRN IV VENT INDUCTION; Start 12/30/21 at 21:30; Stop 12/31/21 at 21:29; Status DC Chlorhexidine Gluconate (Peridex) 15 ml BID MM Last administered on 01/05/22at 20:43; Start 12/31/21 at 09:00; Stop 01/06/22 at 17:10; Status DC Glycerin/ Hypromellose/ Polyethylene (Artificial Tears) 1 drop PRN Q1HR PRN OU DRY EYE Last administered on 01/06/22at 18:08; Start 12/30/21 at 21:30 Dexmedetomidine HCl 400 mcg/ Sodium Chloride 100 ml @ 3.195 mls/ hr CONT PRN IV PER PROTOCOL; Start 12/30/21 at 21:30 Midazolam HCl (Versed) 5 mg PRN 1X PRN IVP VENT INDUCTION; Start 12/30/21 at 21:30; Stop 12/31/21 at 21:29; Status DC Sodium Chloride 500 ml @ 500 mls/hr 1X PRN PRN IV SEE COMMENTS Last ad ministered on 01/09/22at 14:07; Start 12/30/21 at 21:30 Atropine Sulfate (ATROPINE 0.5mg SYRINGE) 0.5 mg PRN Q5MIN PRN IV SEE COMMENTS; Start 12/30/21 at 21:30 Sodium Chloride 1,000 ml @ 75 mls/hr [id number] IV Last administered on 01/01/22at 04:01; Start 12/31/21 at 08:30; Stop 01/01/22 at 10:39; Status DC Potassium Bicarbonate (Potassium Effervescent Tablet) 40 meq 1X ONCE PEG Last administered on 12/31/21at 09:07; Start 12/31/21 at 08:30; Stop 12/31/21 at 08:31; Status DC Magnesium Sulfate 50 ml @ 25 mls/hr 1X ONCE IV Last administered on 12/31/21at 09:06; Start 12/31/21 at 08:30; Stop 12/31/21 at 10:29; Status DC Etomidate (Amidate) 20 mg STK-MED ONCE IV ; Start 12/30/21 at 20:00; Stop 01/01/22 at 09:12; Status DC Succinylcholine Chloride (Anectine) 200 mg STK-MED ONCE .ROUTE ; Start 12/30/21 at 20:00; Stop 01/01/22 at 09:12; Status DC Dextrose 1,000 ml @ 75 mls/hr [id number] IV Last administered on 01/02/22at 05:15; Start 01/01/22 at 10:45; Stop 01/02/22 at 16:48; Status DC Vancomycin HCl 1 gm/Sodium Chloride 250 ml @ 250 mls/hr Q36H IV Last administered on 01/01/22at 22:52; Start 01/01/22 at 23:00; Stop 01/02/22 at 09:58; Status DC Vancomycin HCl (Vancomycin Trough Level) 1 each 1X ONCE MC ; Start 01/03/22 at 10:30; Stop 01/03/22 at 10:31; Status Cancel Sodium Bicarbonate (Sodium Bicarb Adult 8.4% Syr) 50 meq STK-MED ONCE .ROUTE ; Start 12/30/21 at 20:00; Stop 01/01/22 at 13:17; Status DC Magnesium Sulfate/ Dextrose (Magnesium Sulfate PREMIX 1GM) 1 gm STK-MED ONCE IV ; Start 12/30/21 at 20:00; Stop 01/01/22 at 13:17; Status DC Epinephrine HCl (EPINEPHrine SYRINGE) 3 mg STK-MED ONCE .ROUTE ; Start 12/30/21 at 20:00; Stop 01/01/22 at 13:17; Status DC Amiodarone HCl (Cordarone) 300 mg STK-MED ONCE .ROUTE ; Start 12/30/21 at 20:00; Stop 01/01/22 at 13:17; Status DC Furosemide (Lasix) 80 mg 1X ONCE IVP Last administered on 01/02/22at 09:41; Start 01/02/22 at 09:30; Stop 01/02/22 at 09:31; Status DC Potassium Bicarbonate (Potassium Effervescent Tablet) 40 meq 1X ONCE PEG Last administered on 01/02/22at 09:40; Start 01/02/22 at 09:30; Stop 01/02/22 at 09:31; Status DC Linezolid/Dextrose 300 ml @ 300 mls/hr Q12HR IV Last administered on 01/06/22at 09:30; Start 01/02/22 at 21:00; Stop 01/06/22 at 14:33; Status DC Aspirin (Aspirin Chewable) 162 mg [id number] PO Last administered on 01/15/22at 07:48; Start 01/03/22 at 08:00 Potassium Bicarbonate (Potassium Effervescent Tablet) 40 meq 1X ONCE PEG Last administered on 01/02/22at 17:54; Start 01/02/22 at 17:45; Stop 01/02/22 at 17:47; Status DC Potassium Chloride/Water 100 ml @ 100 mls/hr Q1H IV Last administered on 01/03/22at 11:53; Start 01/03/22 at 09:00; Stop 01/03/22 at 12:59; Status DC Heparin Sodium (Porcine) (Heparin Sodium) 5,000 unit Q8HRS SQ Last administered on 01/15/22at 06:01; Start 01/03/22 at 14:00 Amlodipine Besylate (Norvasc) 10 mg DAILY PEG Last administered on 01/15/22at 07:47; Start 01/04/22 at 10:00 Potassium Chloride/Water 100 ml @ 100 mls/hr Q1H IV Last administered on 01/05/22at 08:35; Start 01/05/22 at 08:00; Stop 01/05/22 at 09:59; Status DC Lansoprazole (Prevacid) 30 mg DAILY FT Last administered on 01/15/22at 07:47; Start 01/06/22 at 07:30 Furosemide (Lasix) 80 mg 1X ONCE IVP Last administered on 01/05/22at 14:26; Start 01/05/22 at 13:00; Stop 01/05/22 at 13:01; Status DC Hydralazine HCl (Apresoline) 25 mg TID PO Last administered on 01/15/22at 07:48; Start 01/11/22 at 13:00 Furosemide (Lasix) 80 mg 1X ONCE IVP Last administered on 01/11/22at 13:40; Start 01/11/22 at 13:15; Stop 01/11/22 at 13:16; Status DC Scopolamine (Transderm-Scop) 1 patch Q3DAYS TD Last administered on 01/14/22at 10:09; Start 01/14/22 at 10:00 Active Scripts Active Reported Montelukast Sodium 10 Mg Tablet 1 Tab PO DAILY Stool Softener (Docusate Sodium) 50 Mg Capsule 50 Mg PO BID [place] 5-325 Tablet (Acetaminophen/Hydrocodone Bitart) 1 Each Tablet 1 Tab PO Q4HRS LAST DOSE GIVEN: Lantus Solostar (Insulin Glargine,Hum.rec.anlog) 100 Unit/1 Ml Insuln.pen 21 Unit SQ QHS Culturelle (Lactobacillus Rhamnosus Gg) 1 Each Capsule 1 Each PO DAILY Alive Once Daily Women 50 Plus (Mv-Mn/Folic Acid/Vit [id number]) 1 Each Tablet 1 Each PO DAILY [place] 5-325 Tablet (Acetaminophen/Hydrocodone Bitart) 1 Each Tablet 1 Tab PO PRN Q6HRS PRN Tizanidine Hcl 4 Mg Tablet 2 Tab PO TID PRN Proair Hfa Inhaler (Albuterol Sulfate) 8.5 Gm Hfa.aer.ad 1 Puff INH PRN Q6HRS PRN Montelukast Sodium Tablet (Montelukast Sodium) 10 Mg Tablet 1 Tab PO DAILY Losartan-Hctz 100-25 Mg Tab (Losartan/Hydrochlorothiazide) 1 Each Tablet 1 Tab PO DAILY Protonix (Pantoprazole Sodium) 20 Mg Tablet.dr 1 Tab PO DAILY Vitamin D3 (Cholecalciferol (Vitamin D3)) 1,000 Unit Tablet 1 Tab PO DAILY Cetirizine Hcl 10 Mg Tablet 1 Tab PO DAILY Janumet 50-1,000 Mg Tablet (Sitagliptin Phos/Metformin Hcl) 1 Each Tablet 1 Tab PO BID Vitals/I & O Vital Sign - Last 24 Hours 01/14/22 01/14/22 01/14/22 01/14/22 10:00 11:00 11:33 11:48 Pulse 87 104 104 Resp 19 20 B/P (MAP) 145/74 127/64 161/73 Pulse Ox 97 97 99 O2 Delivery Ventilator Ventilator Ventilator 01/14/22 01/14/22 01/14/22 01/14/22 12:00 13:00 13:33 14:00 Temp 98.9 98.9 Pulse 108 91 102 Resp 18 18 B/P (MAP) 152/69 108/53 120/53 Pulse Ox 97 96 97 95 O2 Delivery Ventilator Ventilator Ventilator Ventilator 01/14/22 01/14/22 01/14/22 01/14/22 14:15 15:00 15:34 16:00 Temp 99.9 99.9 Pulse 91 99 117 Resp 18 20 B/P (MAP) 144/60 144/53 158/60 Pulse Ox 96 99 96 O2 Delivery Ventilator Ventilator Ventilator 01/14/22 01/14/22 01/14/22 01/14/22 17:00 17:33 17:53 18:00 Pulse 128 114 114 Resp 22 20 B/P (MAP) 154/75 154/75 154/72 Pulse Ox 97 92 97 O2 Delivery Ventilator Ventilator Ventilator 01/14/22 01/14/22 01/14/22 01/14/22 19:00 20:00 20:00 21:00 Temp 99.2 99.2 Pulse 121 102 122 Resp 21 16 B/P (MAP) 161/72 151/73 179/81 Pulse Ox 97 95 93 O2 Delivery Ventilator Ventilator Mechanical Ventilator Ventilator 01/14/22 01/14/22 01/14/22 01/14/22 21:11 21:21 22:00 23:00 Pulse 126 103 112 Resp 22 B/P (MAP) 174/76 154/72 162/74 Pulse Ox 92 98 97 O2 Delivery Ventilator Ventilator Ventilator 01/14/22 01/14/22 01/15/22 01/15/22 23:37 23:45 00:00 01:00 Temp 98.2 98.2 Pulse 101 101 104 Resp 22 18 B/P (MAP) 132/66 132/66 150/70 Pulse Ox 99 98 99 O2 Delivery Ventilator Ventilator Ventilator 01/15/22 01/15/22 01/15/22 01/15/22 02:00 03:00 04:00 05:00 Temp 98.3 98.3 Pulse 123 88 90 112 Resp 24 18 18 21 B/P (MAP) 166/70 134/72 141/71 190/84 Pulse Ox 96 99 100 100 O2 Delivery Ventilator Ventilator Ventilator Ventilator 01/15/22 01/15/22 01/15/22 01/15/22 05:05 05:58 06:00 07:00 Pulse 108 93 107 Resp 16 18 B/P (MAP) 149/80 158/77 142/81 Pulse Ox 96 100 100 O2 Delivery Ventilator Ventilator Ventilator 01/15/22 01/15/22 01/15/22 01/15/22 07:47 07:48 08:00 08:00 Temp 98.4 98.4 Pulse 118 105 92 Resp 16 B/P (MAP) 166/72 166/72 159/69 Pulse Ox 100 O2 Delivery Mechanical Ventilator Ventilator 01/15/22 01/15/22 09:00 09:01 Pulse 106 Resp 18 B/P (MAP) 156/70 Pulse Ox 100 97 O2 Delivery Ventilator Ventilator Intake and Output 01/14/22 01/14/22 01/15/22 15:00 23:00 07:00 Intake Total 260 ml 1165 ml 902.81 ml Output Total 550 ml 615 ml 375 ml Balance -290 ml 550 ml 527.81 ml Justicifation of Admission Dx: Justifications for Admission: Justification of Admission Dx: Yes Stroke - Ischemic: Stroke-Ischemic INDER BORWN MD Jan 15, 2022 09:48
[2022-01-15] MEDS: PROPOFOL 100 ML IV PRN (10:02)
[2022-01-15] MEDS ORDERED: HALOPERIDOL LACTATE 5 MG/ML VIAL. IVP PRN (14:30)
[2022-01-15] MEDS ORDERED: MORPHINE SULFATE 4 MG/ML INJ. IVP PRN (14:30)
[2022-01-15] MEDS ORDERED: 0.9 % SODIUM CHLORIDE 10 ML DISP.SYRIN. IV PRN (14:30)
[2022-01-15] MEDS ORDERED: SODIUM PHOSPHATES 19/7GM 133 ML ENEMA. PR PRN (14:30)
[2022-01-15] MEDS ORDERED: NALOXONE 0.4 MG/ML VIAL. IV PRN (14:30)
[2022-01-15] MEDS ORDERED: fentaNYL PF VIAL 100 MCG/2 ML VIAL IVP PRN (14:30)
[2022-01-15] MEDS ORDERED: IV NORMAL SALINE 1000ML BAG 1,000 ML IV SCH (14:30)
[2022-01-15] MEDS ORDERED: MORPHINE SULFATE 20 MG/ML CONC SOLUTION. PO/SL PRN ×2 (14:30)
[2022-01-15] MEDS ORDERED: MORPHINE SULFATE 2 MG/ML INJ. IVP PRN (14:30)
[2022-01-15] MEDS ORDERED: PROCHLORPERAZINE 10 MG/2 ML VIAL. IVP PRN (14:30)
[2022-01-15] MEDS: MORPHINE SULFATE 30 ML IV PRN ×2 (14:33→16:53)
[2022-01-15] MEDS ORDERED: GLYCOPYRROLATE 1 MG/5 ML VIAL. IV ONE (15:00)
--- NOTE | 2022-01-15 17:14 | NUR ---
Family at bedside, decided to proceed with palliative extubation. Notified MTN, patient not a candidate for DCD, call back with cardiac time of . Notified Dr. Chance and Dr. Aleman of plan to withdraw, orders received. Patient extubated at 1445, had severe sonorous respirations and air hunger, morphine gtt increased. Notified Dr. Chance, more orders received.
--- NOTE | 2022-01-15 18:14 | NUR ---
Patient at 89, MTN notified, patient is a candidate for eye/tissue donation. Family chose [facility]. Patient's already took patient's belongings home prior to time of . MDs aware.
--- NOTE | 2022-01-16 15:32 | PDOC3 ---
Discharge Summary Visit Information Date of Admission: Dec 24, 2021 Date of Discharge: Jan 15, 2022 Admitting Diagnosis: Acute bilateral thalamic CVA Final Diagnosis Bilateral thalamic cva Brief Hospital Course Allergies Allergies Coded Allergies Type Severity Reaction Last Updated Verified Sulfa (Sulfonamide Antibiotics) Allergy Intermediate Hives 01/01/22 Yes latex Allergy Intermediate Swelling 01/01/22 Yes lisinopril Allergy Intermediate Rash 01/01/22 Yes levofloxacin Adverse Reaction Intermediate 01/01/22 Yes Vital Signs Vital Signs Date Time Temp Pulse Resp B/P (MAP) Pulse Ox O2 Delivery O2 Flow Rate FiO2 01/15/22 16:00 141 33 121/68 28 Room Air 01/15/22 12:00 98.3 98.3 Lab Results Laboratory Tests Test 01/14/22 17:50 01/14/22 23:43 01/15/22 05:56 01/15/22 11:28 Glucose (Fingerstick) 162 mg/dL (70-99) 205 mg/dL (70-99) 172 mg/dL (70-99) 191 mg/dL (70-99) Brief Hospital Course Ms Sneed was a 51-year-old female w/ PMHx Asthma, Diabetes, Hypertension who presented to [facility] ED in [place], [place] on 12/24/2021 with right-sided weakness and inability to speak. Most of the history came from family who accompanied her. A couple days prior to ED visit the patient had an unexplained fall with some generalized weakness and less activity since that time. At 330 this morning she woke up and was able to walk but had some right-sided decreased strength and had slightly slurred speech. The patient did not come the emergency room at that time. She presents now because she has significant decreased strength in the right upper and lower extremity and is unable to speak clearly. She appears to understand what she is being told and can follow directions but cannot talk. No history of stroke. She was feeling well prior to these recent issues. EKG on admit showed sinus rhythm, rate 117, normal axis, no ST elevation or depression, left ventricular-atrophy. Patient had high blood pressure 234/126, started on nicardipine gtt and transferred to [place] for higher level of care including neurology availability. On arrival patient was noted with no movement of right upper extremity or lower extremity. MRI performed 12/25/21 revealed acute infarcts at the junctions of the left greater than right thalami and posterior limbs of the internal capsules and the right caudate nucleus. Also of note were suspected chronic infarcts involving bilateral basal ganglia, bilateral thalami, drea and centrum semiovale. Over first 3 days she continued to decline was aphasic and had dysphagia was unable to swallow or follow significant commands. Day 4 she had progressive respiratory distress and was not responsive to BiPAP and ultimately was intubated on the fifth day of hospitalization. Her blood pressure was elevated continue to require Cardene despite aggressive additional antihypertensives. Ultimately she had a prolonged hospital stay with progressive respiratory failure. She had PEG placement 01/01/2022 for inability to wean from ventilator. 01/14: Seen in ICU on vent, sedated, FiO2 40% PEEP of 5. Still requiring topical nitroglycerin. Significant BP increases in secretions with sedation weans. Discussed withdrawal of aggressive care with family. Not showing any improvement. She will open her eyes with stimulation, but not upper extremities, does not withdraw to pain. Upgoing great toe reflexes. She does not follow command or look up to command. Chance of significant neurologic recovery is extremely poor. 01/15: Seen in ICU on vent sedated FiO2 40% PEEP 5. Still has shown no improvement opens her eyes to deep painful stimulation not moving upper extremities not withdrawing to pain bilateral great toe reflexes, not looking to voice. No significant neurologic recovery and was not able to be weaned off the ventilator and family made the decision on 01/15/2022 to withdraw aggressive care. Time of 01/15/22 - 1735 Consults: Pulmonology, nephrology, gastroenterology, and neurology Problem list: Bilateral thalamic stroke - Expressive aphasia unilateral weakness secondary to 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 Acute respiratory failure requiring BiPAP support, unable to wean off ventilator once intubated Dysphagia - s/p PEG placement by GI on 01/01/2022 Concern for early sepsis Dehydration Metabolic acidosis Acute electrolyte derangement, hypernatremia and hyperchloremia-possible dehyd ration History hypertension History of diabetes Smoker Greater than 30 minutes spent in care on day of patient expiration Assessment Assessment CT head without contrast: No large area of cortical pearl-white matter differentiation loss. The deep pearl nuclei are able to be delineated but there are several small areas of low at tenuation along the bilateral deep pearl nuclei as well as at the deep subcortical white matter mainly on the right. Heterogeneity of the brainstem mainly below the midbrain is at least in part artifactual from beam hardening. No acute intracranial hemorrhage. No localized mass effect, midline shift or hydrocephalus. Intact calvarium. Normally aerated mastoid air cells and visualized paranasal sinuses. IMPRESSION: 1. 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 No large area of cortical pearl-white matter differentiation loss seen at this time. No acute intracranial hemorrhage. 2. Heterogeneity of the brainstem below the midbrain favored predominantly on account of beam hardening. Attention on forthcoming CT angiography. CT angiography of the head and neck: CTA NECK: Arch/Proximal Great Vessels: Patent great vessel origins. No stenosis of the common or subclavian arteries. Carotid Bifurcation/Cervical ICA: Mild calcified and noncalcified atheromatous plaque at the right carotid bulb and minimally on the left. No cervical ICA stenosis. Vertebral Arteries: Patent origins. Essentially codominant luminal caliber minimally larger on the left. No stenosis or dissection throughout the neck. CTA HEAD: Posterior Circulation: Both intracranial vertebral arteries are patent and contr ibute to basilar flow. The basilar artery is patent. No central occlusion or flow-limiting stenosis of the posterior cerebral arteries. Anterior Circulation: The intracranial ICAs are patent. No large vessel occlusion. Some M3 branches become difficult to delineate on the left but similar findings are present on the right and difficult to confirm as actual pathology. Patent adequately assessed anterior cerebral artery segments. Veins: Patent dural sinuses. MISCELLANEOUS: Prominent size of the thyroid gland with several subcentimeter nodules. Multilevel cervical spine degenerative changes collectively greatest at C5-C6 and C6-C7. A component of central canal stenosis at these levels but not adequately characterized. Odontogenic disease with several dental caries and periapical lucencies. IMPRESSION: CT Angio Neck: 1. No flow-limiting stenosis or dissection of the extracranial carotid or vertebral arteries. 2. Somewhat prominent thyroid gland. A few subcentimeter thyroid nodules are noted which do not meet size criteria for dedicated follow-up. Given the size of the gland consider eventual correlation with thyroid function tests. 3. Odontogenic disease. Multilevel cervical spondylosis collectively greatest at C5-C6 and C6-C7. CT Angio Head: 1. No large vessel occlusion or central flow-limiting stenosis. MRI is recommended given the apparent severity of the patient's neurologic deficits. Discharge Information Condition at Discharge: / Disposition/Orders: Scheduled Cetirizine Hcl (Cetirizine Hcl) 10 Mg Tablet, 1 TAB PO DAILY for ALLERGIES, #30 Ref 5 (Reported) Entered as Reported by: BAUTISTA FAN on 01/19/191040 Last Action: Continued on 12/25/21950 by JUDY PATINO MD Cholecalciferol (Vitamin D3) (Vitamin D3) 1,000 Unit Tablet, 1 TAB PO DAILY for SUPPLEMENT, #30 Ref 5 (Reported) Entered as Reported by: BAUTISTA FAN on 01/19/191040 Last Action: Continued on 12/25/21950 by JUDY PATINO MD Docusate Sodium (Stool Softener) 50 Mg Capsule, 50 MG PO BID for constipation, (Reported) Entered as Reported by: EDUARDO GONZALEZ on 06/02/196 Last Action: HELD on 12/25/21950 by JUDY PATINO MD Hydrocodone/Apap 5-325 ([place] 5-325 Tablet) 1 Each Tablet, 1 TAB PO Q4HRS for pain, #90 (Reported) LAST DOSE GIVEN: Entered as Reported by: EDUARDO GONZALEZ on 06/02/195 Last Action: HELD on 12/25/21950 by JUDY PATINO MD Insulin Glargine,Hum.rec.anlog (Lantus Solostar) 100 Unit/1 Ml Insuln.pen, 21 UNIT SQ QHS for diabetes, #15 Ref 5 (Reported) Entered as Reported by: JONNY HOWELL on 06/02/19917 Last Action: HELD on 12/25/21950 by JUDY PATINO MD Lactobacillus Rhamnosus Gg (Culturelle) 1 Each Capsule, 1 EACH PO DAILY for supp, (Reported) Entered as Reported by: Trisha Oquendo on 06/01/19945 Last Action: HELD on 12/25/21950 by JUDY PATINO MD Losartan/Hydrochlorothiazide (Losartan-Hctz 100-25 Mg Tab) 1 Each Tablet, 1 TAB PO DAILY for HTN, #30 Ref 5 (Reported) Entered as Reported by: BAUTISTA FAN on 01/19/191040 Last Action: Converted on 12/25/21950 by JUDY PATINO MD Montelukast Sodium (Montelukast Sodium Tablet ) 10 Mg Tablet, 1 TAB PO DAILY for ASTHMA, #30 Ref 5 (Reported) Entered as Reported by: BAUTISTA FAN on 01/19/191040 Last Action: Continued on 12/25/21950 by JUDY PATINO MD Montelukast Sodium (Montelukast Sodium) 10 Mg Tablet, 1 TAB PO DAILY for htn, (Reported) Entered as Reported by: THERESA GRANT on 12/24/212118 Last Taken: Unknown Dose on Unknown Date & Time Last Action: HELD on 12/25/21950 by JUDY PATINO MD Mv-Mn/Folic Acid/Vit K/[id number] (Alive Once Daily Women 50 Plus) 1 Each Tablet, 1 EACH PO DAILY for supp, (Reported) Entered as Reported by: Trisha Oquendo on 06/01/19945 Last Action: HELD on 12/25/21950 by JUDY PATINO MD Pantoprazole Sodium (Protonix) 20 Mg Tablet.dr, 1 TAB PO DAILY for REFLUX, #30 (Reported) Entered as Reported by: BAUTISTA FAN on 01/19/191040 Last Action: Converted on 12/25/21950 by JUDY PATINO MD Sitagliptin Phos/Metformin Hcl (Janumet 50-1,000 Mg Tablet) 1 Each Tablet, 1 TAB PO BID for DM, #60 Ref 5 (Reported) Entered as Reported by: BAUTISTA FAN on 01/19/191040 Last Action: HELD on 12/25/21950 by JUDY PATINO MD Scheduled PRN Albuterol Sulfate (Proair Hfa Inhaler) 8.5 Gm Hfa.aer.ad, 1 PUFF INH PRN Q6HRS PRN for SHORTNESS OF BREATH, Ref 0 (Reported) Entered as Reported by: BAUTISTA FAN on 01/19/191040 Last Action: HELD on 12/25/21950 by JUDY PATINO MD Hydrocodone/Apap 5-325 ([place] 5-325 Tablet) 1 Each Tablet, 1 TAB PO PRN Q6HRS PRN for PAIN, Ref 0 (Reported) Entered as Reported by: Trisha Oquendo on 06/01/19944 Last Action: HELD on 12/25/21950 by JUDY PATINO MD Tizanidine Hcl (Tizanidine Hcl) 4 Mg Tablet, 2 TAB PO TID PRN for PAIN, #60 (Reported) Entered as Reported by: Trisha Oquendo on 06/01/19944 Last Action: HELD on 12/25/21950 by JUDY PATINO MD Justicifation of Admission Dx: Justifications for Admission: Justification of Admission Dx: Yes Stroke - Ischemic: Stroke-Ischemic JUDY SHAH MD Jan 16, 2022 15:32
== END 2022-01-15 17:36 | DRG 64 ==
LOC: 1 WEST ICU 19:51 → 2 SOUTH 12-28 16:41 → 6 SOUTH 12-28 16:46 → 1 WEST ICU 12-30 09:15
PROVIDERS: ADMIT Internal Medicine; ATTEND Internal Medicine
PROC: 5A1955Z Respiratory Ventilation, Greater than 96 Consecutive Hours (ICD-10-PCS; principal; 2021-12-30)
PROC: 03HY32Z Insertion of Monitoring Device into Upper Artery, Percutaneous Approach (ICD-10-PCS; 2021-12-30)
PROC: 5A09357 Assistance with Respiratory Ventilation, Less than 24 Consecutive Hours, Continuous Positive Airway Pressure (ICD-10-PCS; 2021-12-30)
PROC: 0BH17EZ Insertion of Endotracheal Airway into Trachea, Via Natural or Artificial Opening (ICD-10-PCS; 2021-12-30)
PROC: 0DH63UZ Insertion of Feeding Device into Stomach, Percutaneous Approach (ICD-10-PCS; 2022-01-01)
DX: I63.9 Cerebral infarction, unspecified (principal); A41.9 Sepsis, unspecified organism; G92.8 Other toxic encephalopathy; J96.01 Acute respiratory failure with hypoxia; E87.0 Hyperosmolality and hypernatremia; I16.9 Hypertensive crisis, unspecified; I67.4 Hypertensive encephalopathy; N17.9 Acute kidney failure, unspecified; G81.91 Hemiplegia, unspecified affecting right dominant side; J98.11 Atelectasis; R47.01 Aphasia; D64.9 Anemia, unspecified; E04.2 Nontoxic multinodular goiter; Z66 Do not resuscitate; E11.22 Type 2 diabetes mellitus with diabetic chronic kidney disease; E63.9 Nutritional deficiency, unspecified; E78.5 Hyperlipidemia, unspecified; E83.42 Hypomagnesemia; E86.0 Dehydration; E87.6 Hypokalemia; E87.8 Other disorders of electrolyte and fluid balance, not elsewhere classified; F17.210 Nicotine dependence, cigarettes, uncomplicated; I12.9 Hypertensive chronic kidney disease with stage 1 through stage 4 chronic kidney disease, or unspecified chronic kidney disease; J44.9 Chronic obstructive pulmonary disease, unspecified; K02.9 Dental caries, unspecified; K21.9 Gastro-esophageal reflux disease without esophagitis; K29.60 Other gastritis without bleeding; N18.30 Chronic kidney disease, stage 3 unspecified; R13.10 Dysphagia, unspecified; Z79.4 Long term (current) use of insulin; Z79.84 Long term (current) use of oral hypoglycemic drugs; Z79.899 Other long term (current) drug therapy; Z90.49 Acquired absence of other specified parts of digestive tract; Z98.51 Tubal ligation status; Z88.8 Allergy status to other drugs, medicaments and biological substances; Z88.1 Allergy status to other antibiotic agents; Z91.040 Latex allergy status
CPT/HCPCS: 43246; C8924; 36415; 36600; 70450; 70551; 71045; 71250; 74176; 80048; 80053; 80061; 80069; 80202; 82533; 82805; 82962; 83036; 83605; 83735; 83880; 84100; 84439; 84443; 84478; 85025; 85027; 85049; 85610; 87040; 93005; 94002; 94003; 94640; 94660; 94760; J0171; J0282; J0330; J0360; J1630; J1644; J1815; J1940; J2020; J2060; J2270; J2543; J2704; J3010; J3370; J3475; J3480; J3490; J7030; J7040; J7050; J7060; G0378; J7613